=== PATIENT | male | born 1955 | race Caucasian/White ===

== ENCOUNTER 2018-01-13 12:15 | Emergency (ER) | payer BC ==
[2018-01-13] MEDS ORDERED: ASPIRIN 81 MG CHEWABLE TABLET ONE (12:37)
[2018-01-13] MEDS ORDERED: FENTANYL CITR 100 MCG/2 ML ONE (12:38)
--- NOTE | 2018-01-13 12:51 | RAD REPORT ---
EXAM DESCRIPTION: RAD - Chest Single View - 01/13/2018 12:44 pm CLINICAL HISTORY: Chest pain, history of NH COMPARISON: January 2017 TECHNIQUE: AP portable chest image was obtained 1233 hours . FINDINGS: Lung volumes are very low. No peripheral mass or consolidation. No acute failure, volume o verload or pulmonary edema. Heart and vasculature are normal. No measurable pleural effusion and no p neumothorax. No gross bony abnormality seen. No acute aortic findings suspected. IMPRESSION: Limited shallow inspiration portable exam shows no acute cardiopulmonary finding. No worrisome change from January 2017
[2018-01-13 13:12] LABS: Absolute Lymphocytes (CBC) 1.3 K/uL (0.7-4.9); Absolute Monocytes 0.6 K/uL (0.1-1.3); Absolute Neutrophil 4.3 K/uL (1.8-8.0); Basophils % 0.6 % (0-1.3); Eosinophils % 2.5 % (0-4.4); Hematocrit 42.8 % (39.6-49.0); Lymphocytes % 20.2 % (15.3-44.8); MCH 30.4 pg (27.0-35.0); MCV 90.2 fL (80-100); MPV 6.8 fL (7.6-11.3); Monocytes % 8.8 % (3.3-12.3); RBC Red Blood Cell Count 4.75 M/uL (4.33-5.43)
[2018-01-13 13:23] LABS: Potassium 3.6 mEq/L (3.6-5.0)
[2018-01-13 13:30] LABS: Albumin 3.8 g/dL (3.2-5.5); Bilirubin Direct 0.1 mg/dL (0-0.2); Bilirubin Total 0.6 mg/dL (0.3-1.2); Magnesium 1.9 mg/dL (1.8-2.5); Protein, Total 7.2 g/dL (6.0-8.3)
[2018-01-13] MEDS ORDERED: INSULIN -REGULAR HUMAN 50 UNIT/0.5 ML ML ONE (14:22)
[2018-01-13] MEDS ORDERED: HYDROCODONE/CHLORPHEN 5 ML/OSYR ONE (14:41)
[2018-01-13] MEDS ORDERED: ALBUTEROL 2.5 MG/3 ML NEB SOL ONE (14:41)
--- NOTE | 2018-01-13 18:14 | EDPHYS ---
Physician Documentation [facility] Name: Kumar Forman Age: 62 yrs Sex: Male : 1955 Arrival Date: 01/13/2018 Time: 12:22 Bed 5 Private MD: ED Physician Ramirez Fuentes HPI: 01/13 12:35 This 62 yrs old Male presents to ER via EMS with complaints of Chest Pain > jr8 30 y/o. 12:35 The patient or guardian reports chest pain that is located primarily in the substernal jr8 area. Onset: acutely, today. The pain does not radiate. Associated signs and symptoms: Pertinent positives: general weakness and fatigue. The chest pain is described as a heaviness, a pressure. Duration: The patient or guardian reports a single episode, that is still ongoing, that lasted 2 hour(s). Modifying factors: The symptoms are alleviated by nothing. the symptoms are aggravated by nothing. Severity of pain: At its worst the pain was moderate in the emergency department the pain is unchanged. The patient has experienced similar episodes in the past, a few times. The patient has not recently seen a physician. History of CAD with 2 WA's in past and 4 stents. Last was WA and stent was in 2004. Last Stress test was this past March of 2017. Nothing acute at that time. Today sudden onset. Noticed he has been more thirsty and urinating a lot as well. 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 Historical: - Allergies: 12:26 Iodine; jl7 12:26 PENICILLINS; jl7 - PMHx: 12:26 BPH; GERD; Myocardial infarction; jl7 - Immunization history:: Adult Immunizations up to date. - Social history:: Smoking status: Patient/guardian denies using tobacco. - Ebola Screening: : No symptoms or risks identified at this time. ROS: 12:35 Eyes: Negative for injury, pain, redness, and discharge, ENT: Negative for injury, jr8 pain, and discharge, Neck: Negative for injury, pain, and swelling, Respiratory: Negative for shortness of breath, cough, wheezing, and pleuritic chest pain, Abdomen/GI: Negative for abdominal pain, nausea, vomiting, diarrhea, and constipation, Back: Negative for injury and pain, MS/Extremity: Negative for injury and deformity, Skin: Negative for injury, rash, and discoloration, Neuro: Negative for headache, weakness, numbness, tingling, and seizure. 12:35 Cardiovascular: Positive for chest pain, edema, Negative for orthopnea, palpitations, paroxysmal nocturnal dyspnea. 12:35 Endocrine: Positive for polydipsia, polyuria. Exam: 12:35 Eyes: Pupils equal round and reactive to light, extra-ocular motions intact. Lids and jr8 lashes normal. Conjunctiva and sclera are non-icteric and not injected. Cornea within normal limits. Periorbital areas with no swelling, redness, or edema. ENT: Nares patent. No nasal discharge, no septal abnormalities noted. Tympanic membranes are normal and external auditory canals are clear. Oropharynx with no redness, swelling, or masses, exudates, or evidence of obstruction, uvula midline. Mucous membranes moist. Neck: Trachea midline, no thyromegaly or masses palpated, and no cervical lymphadenopathy. Supple, full range of motion without nuchal rigidity, or vertebral point tenderness. No Meningismus. Cardiovascular: Regular rate and rhythm with a normal S1 and S2. No gallops, murmurs, or rubs. Normal PMI, no JVD. No pulse deficits. 2+ edema to lower extremities Respiratory: Lungs have equal breath sounds bilaterally, clear to auscultation and percussion. No rales, rhonchi or wheezes noted. No increased work of breathing, no retractions or nasal flaring. Abdomen/GI: Soft, non-tender, with normal bowel sounds. No distension or tympany. No guarding or rebound. No evidence of tenderness throughout. Obese Back: No spinal tenderness. No costovertebral tenderness. Full range of motion. Skin: Warm, dry with normal turgor. Normal color with no rashes, no lesions, and no evidence of cellulitis. MS/ Extremity: Pulses equal, no cyanosis. Neurovascular intact. Full, normal range of motion. Neuro: Awake and alert, GCS 15, oriented to person, place, time, and situation. Cranial nerves II-XII grossly intact. Motor strength 5/5 in all extremities. Sensory grossly intact. Cerebellar exam normal. Normal gait. 12:35 ECG was reviewed by the Attending Physician. Vital Signs: 12:26 BP 165 / 94; Pulse 89; Resp 18 S; Temp 98(O); Pulse Ox 97% on R/A; Weight 135.17 kg jl7 (R); Height 5 ft. 7 in. (170.18 cm) (R); Pain 4/10; 13:30 BP 138 / 72; Pulse 85; Resp 18; Pulse Ox 97% ; jl7 14:00 BP 145 / 89; Pulse 83; Resp 18 S; Pulse Ox 98% on R/A; jl7 14:53 BP 130 / 71; Pulse 78; Resp 18; Pulse Ox 100% on Nebulizer Mask; jl7 17:30 BP 135 / 78; Pulse 76; Resp 18; Pulse Ox 99% ; jl7 12:26 Body Mass Index 46.67 (135.17 kg, 170.18 cm) jl7 MDM: 12:22 Patient medically screened. jr8 18:12 The patient was given aspirin in the Emergency Department. Data reviewed: vital signs, [facility] nurses notes, lab test result(s), EKG, radiologic studies, plain films, and as a result, I will discharge patient. Data interpreted: Pulse oximetry: on room air is 100 %. Interpretation: normal. 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 Response to treatment: the patient's symptoms have markedly improved after treatment. ED course: Both troponins are negative. Patient feeling better. Wants to go home. Will call Dr. Harris in the AM as he is established patient with him. Patient hemodynamically stable. Will start patient on new diabetic medication . 01/13 12:23 Order name: Basic Metabolic Panel; Complete Time: 13:30 01/13 12:23 Order name: BNP; Complete Time: 13:35 01/13 12:23 Order name: CBC with Diff; Complete Time: 13:22 01/13 12:23 Order name: LFT's; Complete Time: 13:30 01/13 12:23 Order name: Magnesium; Complete Time: 13:30 01/13 12:23 Order name: PT-INR; Complete Time: 13:22 01/13 12:23 Order name: Troponin (emerg Dept Use Only); Complete Time: 13:30 jr8 01/13 12:23 Order name: XRAY Chest (1 view); Complete Time: 12:58 jr8 01/13 14:41 Order name: Glucose, Ancillary Testing; Complete Time: 14:43 EDMS 06 15:37 Order name: Troponin (emerg Dept Use Only); Complete Time: 16:50 jr8 01/13 16:20 Order name: Glucose, Ancillary Testing; Complete Time: 16:25 EDMS 01/13 12:23 Order name: EKG; Complete Time: 12:23 jr8 01/13 12:23 Order name: Cardiac monitoring; Complete Time: 12:46 jr8 01/13 12:23 Order name: EKG - Nurse/Tech; Complete Time: 12:46 jr8 01/13 12:23 Order name: IV Saline Lock; Complete Time: 12:46 jr8 01/13 12:23 Order name: Labs collected and sent; Complete Time: 12:46 jr8 01/13 12:23 Order name: O2 Per Protocol; Complete Time: 12:46 jr8 01/13 12:23 Order name: O2 Sat Monitoring; Complete Time: 12:52 jr8 01/13 12:23 Order name: Glucose Level; Complete Time: 12:51 jr8 EC:35 Rate is 95 beats/min. Rhythm is regular, Normal Sinus Rhythm. QRS [place] is Normal. FL jr8 interval is normal at 172 msec. QRS interval is normal at 92 msec. QT interval is prolonged at 469 msec. Q waves are Present. Q waves are Old. T waves are Flattened in lead III. No ST changes noted. Clinical impression: NSR w/ Non-specific ST/T Changes. Interpreted by me. Reviewed by me. Administered Medications: 12:37 Drug: Aspirin Chewable Tablet 324 mg Route: PO; jl7 14:50 Follow up: Response: No adverse reaction jl7 12:38 Drug: fentaNYL (PF) 25 mcg Route: IVP; Site: right antecubital; jl7 13:15 Follow up: Response: No adverse reaction; Pain is decreased jl7 14:25 Drug: Insulin Regular Human 10 units {Co-Signature: jl7 (Doris Hernandez RN).} Route: hb Sub-Q; Site: right upper arm; 16:19 Follow up: Response: Blood sugar is lowered jl7 14:49 Drug: Albuterol 2.5 mg Route: Inhalation; 7 16:19 Follow up: Response: No adverse reaction 7 14:50 Drug: Tussionex Pennkinetic ER 5 ml Route: PO; jl7 16:19 Follow up: Response: No adverse reaction jl7 Point of Care Testing: Blood Glucose: 12:50 Blood Glucose: 275 mg/dL; dh3 Ranges: Critical Glucose Levels:Adult <50 mg/dl or >400 mg/dl <40 mg/dl or >180 mg/dl Disposition: 19:06 Co-signature as Attending Physician, Ramirez Fuentes MD. rn Disposition: 01/13/18 18:13 Discharged to Home. Impression: Diabetes mellitus due to underlying condition with hyperglycemia, Chest pain, unspecified. - Condition is Stable. - Discharge Instructions: Nonspecific Chest Pain, Type 2 Diabetes Mellitus, Adult, Blood Glucose Monitoring, Adult, Aspirin and Your Heart, Chest Pain Observation. - Prescriptions for Metformin 500 mg Oral Tablet - take 1 tablet by ORAL route 2 times per day with meals; 30 tablet. - Medication Reconciliation Form, Thank You Letter, Antibiotic Education, Prescription Opioid Use form. - Follow up: Donnell Harris MD; When: Tomorrow; Reason: Recheck today's complaints, Continuance of care, Re-evaluation by your physician. - Problem is new. - Symptoms have improved. Signatures: Dispatcher [employer] EDMS Ramirez Fuentes MD MD rn Roszak, Josh, NILAY PA jr8 Yasmine Xiao RN RN hb Leal, Jahala, RN RN jl7 Doris Hernandez RN jl7 Corrections: (The following items were deleted from the chart) 18:30 18:13 01/13/2018 18:13 Discharged to Home. Impression: Diabetes mellitus due to jl7 underlying condition with hyperglycemia; Chest pain, unspecified. Condition is Stable. Forms are Medication Reconciliation Form, Thank You Letter, Antibiotic Education, Prescription Opioid Use. Follow up: Donnell Harris; When: Tomorrow; Reason: Recheck today's complaints, Continuance of care, Re-evaluation by your physician. Problem is new. Symptoms have improved. jrJairon
--- NOTE | 2018-01-13 18:14 | ER ---
Nurse's Notes [facility] Name: Kumar Forman Age: 62 yrs Sex: Male : 1955 Arrival Date: 01/13/2018 Time: 12:22 Bed 5 Private MD: Diagnosis: Diabetes mellitus due to underlying condition with hyperglycemia;Chest pain, unspecified Presentation: 01/13 12:22 Presenting complaint: EMS states: Substernal chest pain started at about 1000. jl7 Transition of care: patient was not received from another setting of care. Onset of symptoms was January 13, 2018 at 10:00. Risk Assessment: Do you want to hurt yourself or someone else? Patient reports no desire to harm self or others. Initial Sepsis Screen: Does the patient meet any 2 criteria? No. Patient's initial sepsis screen is negative. Does the patient have a suspected source of infection? No. Patient's initial sepsis screen is negative. Care prior to arrival: None. 12:22 Method Of Arrival: EMS: [facility] jl7 12:22 Acuity: STEF 2 jl7 Triage Assessment: 12:26 General: Appears in no apparent distress. uncomfortable, Behavior is calm, cooperative, jl7 appropriate for age. Pain: Complains of pain in mid-sternal area Pain does not radiate. Pain currently is 4 out of 10 on a pain scale. Quality of pain is described as pressure, Pain began 2 hours ago. Is continuous. EENT: No signs and/or symptoms were reported regarding the EENT system. Neuro: Level of Consciousness is awake, alert, obeys commands, Oriented to person, place, time, situation. Cardiovascular: Heart tones S1 S2 present Patient's skin is warm and dry. Respiratory: Airway is patent Respiratory effort is even, unlabored, Respiratory pattern is regular, symmetrical. GI: No signs and/or symptoms were reported involving the gastrointestinal system. Patient currently denies diarrhea, nausea, vomiting. : No signs and/or symptoms were reported regarding the genitourinary system. Derm: Skin is pink, warm \T\ dry. Musculoskeletal: No signs and/or symptoms reported regarding the musculoskeletal system. Historical: - Allergies: 12:26 Iodine; jl7 12:26 PENICILLINS; jl7 - PMHx: 12:26 BPH; GERD; Myocardial infarction; jl7 - Immunization history:: Adult Immunizations up to date. - Social history:: Smoking status: Patient/guardian denies using tobacco. - Ebola Screening: : No symptoms or risks identified at this time. Screenin:30 Abuse screen: Denies threats or abuse. Denies injuries from another. Nutritional jl7 screening: No deficits noted. Tuberculosis screening: No symptoms or risk factors identified. Fall Risk IV access (20 points). Total Rodriguez Fall Scale indicates No Risk (0-24 pts). Assessment: 12:30 General: See triage assessment. jl7 13:30 Reassessment: Patient appears in no apparent distress at this time. Patient and/or jl7 family updated on plan of care and expected duration. Pain level reassessed. Patient is alert, oriented x 3, equal unlabored respirations, skin warm/dry/pink. 14:30 Reassessment: Patient and/or family updated on plan of care and expected duration. Pain jl7 level reassessed. Patient is alert, oriented x 3, equal unlabored respirations, skin warm/dry/pink. Pt c/o of non-productive cough, see [facility] for orders. 15:30 Reassessment: Patient appears in no apparent distress at this time. Patient and/or hb family updated on plan of care and expected duration. Pain level reassessed. Patient is alert, oriented x 3, equal unlabored respirations, skin warm/dry/pink. 16:30 Reassessment: Patient appears in no apparent distress at this time. No changes from hb previously documented assessment. Patient and/or family updated on plan of care and expected duration. Pain level reassessed. Patient is alert, oriented x 3, equal unlabored respirations, skin warm/dry/pink. 17:30 Reassessment: No changes from previously documented assessment. Patient and/or family jl7 updated on plan of care and expected duration. Pain level reassessed. Patient is alert, oriented x 3, equal unlabored respirations, skin warm/dry/pink. Patient states feeling better. Vital Signs: 12:26 BP 165 / 94; Pulse 89; Resp 18 S; Temp 98(O); Pulse Ox 97% on R/A; Weight 135.17 kg jl7 (R); Height 5 ft. 7 in. (170.18 cm) (R); Pain 4/10; 13:30 BP 138 / 72; Pulse 85; Resp 18; Pulse Ox 97% ; jl7 14:00 BP 145 / 89; Pulse 83; Resp 18 S; Pulse Ox 98% on R/A; jl7 14:53 BP 130 / 71; Pulse 78; Resp 18; Pulse Ox 100% on Nebulizer Mask; jl7 17:30 BP 135 / 78; Pulse 76; Resp 18; Pulse Ox 99% ; jl7 12:26 Body Mass Index 46.67 (135.17 kg, 170.18 cm) jl7 ED Course: 12:22 Patient arrived in ED. jl7 12:22 Barry Olvera PA is PHCP. jr8 12:22 Ramirez Fuentes MD is Attending Physician. jr8 12:24 Triage completed. jl7 12:26 Arm band placed on right wrist. jl7 12:30 Patient has correct armband on for positive identification. Placed in gown. Bed in low jl7 position. Call light in reach. Side rails up X 1. patient monitor on. Pulse ox on. NIBP on. 12:30 Patient maintains SpO2 saturation greater than 95% on room air. jl7 12:31 Doris Hernandez, RN is Primary Nurse. jl7 12:42 XRAY Chest (1 view) In Process Unspecified. EDMS 12:45 Initial lab(s) drawn, by me, sent to lab. Inserted saline lock: 20 gauge in right dh3 antecubital area, using aseptic technique. Blood collected. 18:13 Donnell Harris MD is Referral Physician. jr8 18:29 No provider procedures requiring assistance completed. IV discontinued, intact, jl7 bleeding controlled, No redness/swelling at site. Pressure dressing applied. Administered Medications: 12:37 Drug: Aspirin Chewable Tablet 324 mg Route: PO; jl7 14:50 Follow up: Response: No adverse reaction jl7 12:38 Drug: fentaNYL (PF) 25 mcg Route: IVP; Site: right antecubital; jl7 13:15 Follow up: Response: No adverse reaction; Pain is decreased jl7 14:25 Drug: Insulin Regular Human 10 units {Co-Signature: jl7 (Doris Hernandez RN).} Route: hb Sub-Q; Site: right upper arm; 16:19 Follow up: Response: Blood sugar is lowered jl7 14:49 Drug: Albuterol 2.5 mg Route: Inhalation; jl7 16:19 Follow up: Response: No adverse reaction 7 14:50 Drug: Tussionex Pennkinetic ER 5 ml Route: PO; 7 16:19 Follow up: Response: No adverse reaction 7 Point of Care Testing: Blood Glucose: 12:50 Blood Glucose: 275 mg/dL; [facility] Ranges: Outcome: 18:13 Discharge ordered by . alisha 18:29 Discharged to home ambulatory, with family. 7 18:29 Condition: stable 18:29 Discharge instructions given to patient, family, Instructed on discharge instructions, follow up and referral plans. medication usage, Demonstrated understanding of instructions, follow-up care, medications, Prescriptions given X 1. 18:30 Patient left the ED. jl7 Signatures: Dispatcher [employer] EDMS Barry Olvera PA PA jr8 Yasmine Xiao, RN LYRIC oDris Hernandez RN RN jl7 Paola Harmon [facility] Doris [email or web address]
[2018-01-13 18:33] VITALS: TEMP 98
[2018-01-13 18:38] VITALS: BP 135/78; O2SAT 99
--- NOTE | 2018-01-13 22:41 | EKG ---
Test Date: 2018-01-13 Test Time: 12:30:48 Senior Developer: DORIS MEASUREMENT RESULTS: Intervals: Rate: 95 ME: 172 QRSD: 92 QT: 374 QTc: 469 [place]: P: 47 ME: 172 QRS: 5 T: 32 INTERPRETIVE STATEMENTS: Normal sinus rhythm Inferior infarct, age undetermined Anteroseptal infarct, age undetermined Abnormal ECG Compared to ECG 01/26/2017 10:44:27 Myocardial infarct finding now present Electronically Signed On 01-13-18 22:40:40 CDT by Yon Edwards
== END 2018-01-13 18:30 | disposition home or self-care (01) ==
LOC: ER 12:15
DX: E11.65 Type 2 diabetes mellitus with hyperglycemia (principal); R07.9 Chest pain, unspecified; I25.2 Old myocardial infarction; Z88.0 Allergy status to penicillin; Z88.8 Allergy status to other drugs, medicaments and biological substances
CPT/HCPCS: 36415; 71045; 80048; 80076; 82962; 83735; 83880; 84484; 85025; 85610; 93005; 96372; 96374; 99285; J3010

== ENCOUNTER 2019-04-22 15:32 | Emergency (ER) | payer BC ==
--- OUTSIDE RECORDS SUMMARY | 2019-04-22 15:34 | XMS REPORT | Clinical Summary ---
:1955 Author Organization [facility] Address [address] [place] [address] Care Team Providers Name Role Phone Toribio Dowling DO Primary Care Provider Allergies Active Allergy Reactions Severity Noted Date Comments Iodine Anaphylaxis, Hives, Rash High 01/21/2016 IV Iodine Penicillins Anaphylaxis High 01/21/2016 Phenazopyridine Anaphylaxis High 09/07/2017 Medications Medication Sig Dispensed Refills Start Date End Date Status zolpidem CR (AMBIEN TAKE 1 TABLET BY 5 07/02/2018 Active CR) 12.5 MG CR tablet MOUTH AT BEDTIME NEEDED FOR INSOMNIA metFORMIN (GLUCOPHAGE) 0 07/15/2018 Active 1,000 mg tablet gabapentin (NEURONTIN) Take 600 mg by 1 07/02/2018 Active 600 mg tablet mouth 2 (two) times a day. glimepiride (AMARYL) 4 0 07/18/2018 Active MG tablet finasteride (PROSCAR) Take 5 mg by mouth 3 06/23/2018 Active 5 mg tablet daily. clopidogrel (PLAVIX) Take 75 mg by 5 06/24/2018 Active 75 mg tablet mouth daily. metoprolol succinate Take 100 mg by 5 07/08/2018 Active XL (TOPROL-XL) 100 mg mouth daily. 24 hr tablet losartan-hydrochloroth Take 1 tablet by 1 07/02/2018 Active iazide (HYZAAR) mouth daily. 50-12.5 mg per tablet Active Problems Not on file Social History Tobacco Use Types Packs/Day Years Used Date Never Assessed Sex Assigned at Date Recorded Not on file Job Start Date Occupation Industry Not on file Not on file Not on file Travel History Travel Start Travel End No recent travel history available. 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
--- OUTSIDE RECORDS SUMMARY | 2019-04-22 15:35 | XMS REPORT ---
:1955 [facility] [address] [place] [address] Care Team Providers Name Role Phone Unavailable Unavailable Unavailable Payers Payer Name Policy Type Policy Number Effective Date Expiration Date Problems This patient has no known problems. Allergies, Adverse Reactions, Alerts Allergy Name Allergy Status Severity Reaction(s) Onset Inactive Treating Comments Type Date Date [place] [address] Contrast- Oral 6-10 and IV Dye 00:00: 00 Penicillins DA Active SV 2019-0 6-10 00:00: 00 phenazopyridine DA Active SV 2019-0 6-10 00:00: 00 [place] [address] Contrast- Oral 1-15 and IV Dye 00:00: 00 Penicillins DA Active SV 2018-0 8-06 00:00: 00 iodine DA Active SV 2018-0 8-06 00:00: 00 phenazopyridine DA Active SV 2018-0 8-06 00:00: 00 Medications This patient has no known medications. Results Test Description Test Time Test Comments Text Results Atomic Results Result Comments - XR KNEE 1 OR 2 V RT 2019-01-31 12:44:00 Patient Name: AGUEDA COOK Unit No: [id number] EXAMS: CPT CODE: [id number] XR KNEE 1 OR 2 V RT [address]117 RIGHT KNEE 2 VIEWS PORTABLE COMMENT: The patient is status post joint replacement which is articulating normally. at 1244 Reported and signed by: Igor Vallejo MD CC: Beverly Escobar MD Technologist: DAVION PEREZ (RT.R) Transcribed D/ (6720) Elvia [facility] NAME: AGUEDA COOK [address] [facility] PHYS: PAT Beverly Escobar : 1955 AGE: 63 SEX: M [id number] LOC: Y.520 A PHONE #: [phone] EXAM DATE: 01/28/2019 STATUS: DIS IN FAX #: [phone] RAD #: D/C DT 01/29/2019 PAGE 1 Signed Report Patient Name: AGUEDA COOK Unit No: [id number] EXAMS: CPT CODE: [id number] XR KNEE 1 OR 2 V RT 68488 <Continued> Orig Print D/T: S: 01/31/2019 (0535) [facility] NAME: AGUEDA COOK [address] [facility] PHYS: YANN. Beverly Escobar : 1955 AGE: 63 SEX: M [id number] LOC: Y.520 A PHONE #: [phone] EXAM DATE: 01/28/2019 STATUS: DIS IN FAX #: [phone] RAD #: D/C DT 01/29/2019 PAGE 2 Signed Report BASIC METABOLIC PANEL 2019-01-29 07:38:00 Test Item Value Reference Range Comments SODIUM (test code=NA) 140 mmol/L 136-145 POTASSIUM (test code=K) 3.9 mmol/L 3.5-5.1 CHLORIDE (test code=CL) 103.0 mmol/L 98-107 CARBON DIOXIDE (test code=CO2) 27.7 mmol/L 21-32 GLUCOSE (test code=GLU) 154 mg/dL 70-110 BLOOD UREA NITROGEN (test 23 mg/dL 7-18 code=BUN) GLOMERULAR FILTRATION RATE (test 53.4 >60 Unit of measure: mL/min/1.73 code=GFR) [id number] Range:Healthy Adults >90 mL/min/1.73 m2 For Chronic Kidney Disease: Stage II Mild Decrease in GFR 60-90 Stage III Moderate Decrease in GFR 30-59 Stage IV Severe Decrease in GFR 15-29 Stage V Kidney Failure <15 CREATININE (test code=CREAT) 1.35 mg/dL 0.55-1.30 CALCIUM (test code=CA) 7.8 mg/dL 8.2-10.1 HGB [id number] 06:32:00 Test Item Value Reference Range Comments HEMOGLOBIN (test code=HGB) 12.2 g/dL 12-16 HEMATOCRIT (test code=HCT) 37.1 % 37-47 [id number] 05:24:00 Test Item Value Reference Range Comments GLUBED (test code=GLUBED) 149 mg/dL 60-125 [id number] 20:47:00 Test Item Value Reference Range Comments GLUBED (test code=GLUBED) 161 mg/dL 60-125 [id number] 12:02:00 Test Item Value Reference Range Comments GLUBED (test code=GLUBED) 140 mg/dL 60-125 GLYCOSYLATED HEMOGLOBIN (HA1C)2019-01-17 13:50:00 Test Item Value Reference Range Comments GLYCOSYLATED HEMOGLOBIN 6.2 % 4.8-5.9 Any condition that shortens (HA1C) (test code=GLYHGB) erythocyte survival or decreasesmean erythrocyte age (e.g., recovery from acute blood loss,hemolytic anemai) will falsely lower HGBA1c resultsregardless of the method used. HGBA1c results frompatients with HbSS, HbCC and HbSc must be interpreted withcaution given the pathological processes, including anemia,increased red cell turnover, transfusion requirements, thatadversely impact HGBA1c as a marker of long-term glycemiccontrol. Alternative forms of testing such as fructosamineshould be considered for these patients.Any condition that shortens erythocyte survival or decreasesmean erythrocyte age (e.g., recovery from acute blood loss,hemolytic anemia) will falsely lower HGBA1c resultsregardless of the method used. HGBA1c results from patientswith HbSS, HbCC, and HbSc must be interpreted with cautiongiven the pathological processes, including anemia,increased red cell turnover, transfusion requirements, thatadversely impact HGBA1c as a marker of long-term glycemiccontrol. Alternative forms of testing such as fructosamineshould be considered for these patients.DONE AT: [facility] [address], [place] [address] GLYCOSYLATED HEMOGLOBIN (HA1C)2019-01-17 13:49:00 Test Item Value Reference Range Comments GLYCOSYLATED HEMOGLOBIN 6.2 % 4.8-5.9 Any condition that shortens (HA1C) (test code=GLYHGB) erythocyte survival or decreasesmean erythrocyte age (e.g., recovery from acute blood loss,hemolytic anemia) will falsely lower HGBA1c resultsregardless of the method used. HGBA1c results from patientswith HbSS, HbCC, and HbSc must be interpreted with cautiongiven the pathological processes, including anemia,increased red cell turnover, transfusion requirements, thatadversely impact HGBA1c as a marker of long-term glycemiccontrol. Alternative forms of testing such as fructosamineshould be considered for these patients. COMPREHENSIVE METABOLIC [id number] 12:39:00 Test Item Value Reference Range Comments SODIUM (test code=NA) 138 mmol/L 136-145 POTASSIUM (test code=K) 4.1 mmol/L 3.5-5.1 CHLORIDE (test code=CL) 101.0 mmol/L 98-107 CARBON DIOXIDE (test code=CO2) 24.9 mmol/L 21-32 GLUCOSE (test code=GLU) 127 mg/dL 70-110 BLOOD UREA NITROGEN (test 18 mg/dL 7-18 code=BUN) GLOMERULAR FILTRATION RATE 58.3 >60 Unit of measure: (test code=GFR) mL/min/1.73 [id number] Range:Healthy Adults >90 mL/min/1.73 m2 For Chronic Kidney Disease: Stage II Mild Decrease in GFR 60-90 Stage III Moderate Decrease in GFR 30-59 Stage IV Severe Decrease in GFR 15-29 Stage V Kidney Failure <15 CREATININE (test code=CREAT) 1.25 mg/dL 0.55-1.30 TOTAL PROTEIN (test code=PROT) 6.7 g/dL 6.4-8.2 ALBUMIN (test code=ALB) 3.4 g/dL 3.4-5.0 GLOBULIN (test code=GLOB) 3.3 g/dL 2.2-4.2 ALBUMIN/GLOBULIN RATIO (test 1.0 0.7-2.0 code=A/G) CALCIUM (test code=CA) 8.9 mg/dL 8.2-10.1 BILIRUBIN TOTAL (test 0.27 mg/dL 0.2-1.00 code=BILT) SGOT/AST (test code=AST) 32.0 U/L 15-37 SGPT/ALT (test code=ALT) 52.0 U/L 12-78 Please note new normal range. ALKALINE PHOSPHATASE TOTAL 69 U/L 46-116 (test code=ALKP) PROTHROMBIN [id number] 12:33:00 Test Item Value Reference Range Comments PROTHROMBIN TIME PATIENT 11.4 secs 10.1-12.5 (test code=PTP) INTERNATIONAL NORMAL RATIO 1.01 <2.0 RECOMMENDED THERAPEUTIC RANGE (test code=INR) FOR ORAL ANTICOAGULANTTREATMENT: CONDITION INRProphylaxis of venous thrombosis in 2.0 - 3.0 high-risk medical or surgical patientsTreatment of venous thrombosis 2.0 - 3.0Prevention of embolism 2.0 - 3.0Prevention of recurrent embolism, or 3.0 - 4.5 patients with mechanical prosthetic intravascular valves IS PATIENT ON ANTICOAGULANTS ? YLIST ANTICOAGULANT/ANTI PLT MEDICATION : Plavix (Anti-PLT)Has Lab been notified if Patient is on Heparin Drip? NOIf Yes, order CBC, OCCULT BLOOD, PT every other day NTHROMBOPLASTIN TIME [id number] 12: 33:00 Test Item Value Reference Range Comments PTT ACTIVATED (test code=APTT) 28.4 secs 24.9-37.0 IS PATIENT ON ANTICOAGULANTS ? YLIST ANTICOAGULANT/ANTI PLT MEDICATION : Plavix (Anti-PLT)Has Lab been notified if Patient is on Heparin Drip? NOIf Yes, order CBC, OCCULT BLOOD, PT every other day NCBC W/AUTO [id number] 12:29:00 Test Item Value Reference Range Comments WHITE BLOOD CELL (test code=WBC) 8.9 K/mm3 5.7-10.5 RED BLOOD CELL (test code=RBC) 5.04 M/mm3 4.2-5.4 HEMOGLOBIN (test code=HGB) 14.5 g/dL 12-16 HEMATOCRIT (test code=HCT) 44.0 % 37-47 MEAN CELL VOLUME (test code=MCV) 87 fL 80-98 MEAN CELL HGB (test code=MCH) 28.8 pg 27-34 MEAN CELL HGB CONCENTRATION (test code=MCHC) 33.0 g/dL 30.8-34.1 RED CELL DISTRIBUTION WIDTH (test code=RDW) 13.8 % 11-16 PLT (test code=PLT) 159 K/mm3 130-400 MEAN PLATELET VOLUME (test code=MPV) 8.5 fL 8.9-12.1 NEUTROPHIL % (test code=NT%) 69.2 % 45-70 LYMPHOCYTE % (test code=LY%) 18.2 % 20-40 MONOCYTE % (test code=MO%) 9.6 % 3-10 EOSINOPHIL % (test code=EO%) 2.1 % 1-5 BASOPHIL % (test code=BA%) 0.6 % 0.0-1.1 NEUTROPHIL # (test code=NT#) 6.14 K/mm3 2.00-7.50 LYMPHOCYTE # (test code=LY#) 1.62 K/mm3 1.50-4.00 MONOCYTE # (test code=MO#) 0.85 K/mm3 0.2-0.8 EOSINOPHIL # (test code=EO#) 0.19 K/mm3 0.04-0.4 BASOPHIL # (test code=BA#) 0.05 K/mm3 0.02-0.10 MANUAL DIFF REQUIRED (test code=MDIFF) NO MANUAL DIFF NUCLEATED RED BLOOD CELL (test code=NRBC) 0 % 0-0 URINALYSIS [id number] 12:27:00 Test Item Value Reference Range Comments UA COLOR (test code=COLU) YELLOW YELLOW UA APPEARANCE (test code=APPU) CLEAR CLEAR UA GLUCOSE DIPSTICK (test code=DGLUU) NEGATIVE NEGATIVE UA BILIRUBIN DIPSTICK (test code=BILU) NEGATIVE NEGATIVE UA KETONE DIPSTICK (test code=KETU) NEGATIVE mg/dL NEGATIVE UA SPECIFIC GRAVITY (test code=SGU) 1.025 1.003-1.035 UA BLOOD DIPSTICK (test code=ENRIKE) NEGATIVE NEGATIVE UA PH DIPSTICK (test code=SUKHJINDER) 6.0 >6.5 UA PROTEIN DIPSTICK (test code=PROU) NEGATIVE mg/dL NEG UA UROBILINIOGEN DIPSTICK (test code=URO) 0.2 mg/dL NORM UA NITRITE DIPSTICK (test code=ERICA) NEGATIVE NEG UA LEUKOCYTE ESTERASE DIPSTICK (test NEGATIVE NEGATIVE code=LEUU) UA WBC (test code=WBCU) <5 /HPF 0-2 UA RBC (test code=RBCU) 0-2 /HPF 0-2 UA EPITHELIAL CELLS (test code=EPIU) FEW /HPF 0-2 UA BACTERIA (test code=BACU) FEW /HPF NONE - XR FLUORO [id number] 10:43:00 Patient Name: AGUEDA COOK Unit No: [id number] EXAMS: CPT CODE: [id number] XR FLUORO NDL 41953 FLUOROSCOPICALLY GUIDED right prosthetic knee joint ASPIRATION COMMENT: After informed consent was obtained a 22-gauge needle is inserted into right prosthetic knee joint under fluoroscopic control using sterile technique. 10 mL of fluid was aspirated. This is sent to the lab for analysis. The patient tolerated the procedure well. 0.5 minutes of fluoroscopy time was used on this exam. at 1043 Reported and signed by: Pb Clemente MD CC: Ricardo Leonard Technologist: RT. Mendel(R) Transcribed D/ (5701) SimonGVG [facility] NAME: AGUEDA COOK[address] [facility] PHYS: Ricardo Patel : 1955 AGE: 62 SEX: M [id number] LOC: UN PHONE #: [phone] EXAM DATE: 01/08/2018 STATUS: DEP [place] #: [phone] RAD #: D/C DT PAGE 1 Signed Report Patient Name: AGUEDA COOK Unit No: [id number] EXAMS: CPT CODE: [id number] XR FLUORO NDL 30782 < Continued> Orig Print D/T: S:01/11/2018 (8873) [facility] NAME: AGUEDA COOK [address] [facility] PHYS : Ricardo Patel : AGE: 62 SEX: M [id number] LOC: UNK PHONE #: [phone] EXAM DATE: STATUS: SALVADOR BAEZA FAX #: [phone] RAD #: D/C DT PAGE 2 Signed Report
[2019-04-22 16:39] LABS: Protime INR 1.05
[2019-04-22 16:40] LABS: Absolute Lymphocytes (CBC) 1.7 K/uL (0.7-4.9); Basophils % 0.6 % (0-1.3); Hematocrit 44.8 % (39.6-49.0); Lymphocytes % 19.6 % (15.3-44.8); MPV 6.6 fL (7.6-11.3); RBC Red Blood Cell Count 5.14 M/uL (4.33-5.43)
--- NOTE | 2019-04-22 16:51 | RAD REPORT ---
EXAM DESCRIPTION: CT - Head Brain Wo Cont - 04/22/2019 4:30 pm CLINICAL HISTORY: Dizziness;Headache Headache, drowsiness COMPARISON: SINUS W O CONTRAST dated 04/16/2012 TECHNIQUE: All CT scans are performed using dose optimization technique as appropriate and may inclu de automated exposure control or mA/KV adjustment according to patient size. FINDINGS: No intracranial hemorrhage, hydrocephalus or extra-axial fluid collection.No areas of brai n edema or evidence of midline shift. The paranasal sinuses and mastoids are clear. The calvarium is intact. IMPRESSION: No acute intracranial abnormality.
--- NOTE | 2019-04-22 16:52 | RAD REPORT ---
EXAM DESCRIPTION: RAD - Chest Single View - 04/22/2019 4:33 pm CLINICAL HISTORY: CHEST PAIN Chest pain. COMPARISON: Chest Single View dated 01/13/2018; Chest Single View dated 01/26/2017; Chest Single View d ated 01/18/2017; CHEST SINGLE VIEW dated 12/06/2013 FINDINGS: Portable technique limits examination quality. The lungs are grossly clear. The heart is normal in size. No displaced fractures. IMPRESSION: No acute intrathoracic process suspected.
[2019-04-22] MEDS ORDERED: NA CHLORIDE 0.9% 1,000 ML ONE (16:58)
[2019-04-22 16:59] LABS: ALT/SGPT 46 U/L (12-78); AST/SGOT 26 U/L (15-37); Albumin 3.5 g/dL (3.4-5.0); Alkaline Phosphatase 69 U/L (45-117); BUN Blood Urea Nitrogen 17 mg/dL (7-18); Bicarbonate 24 mmol/L (21-32); Bilirubin Direct 0.1 mg/dL (0-0.2); Bilirubin Total 0.4 mg/dL (0.2-1.0); Glucose Level 79 mg/dL (74-106); Magnesium 1.9 mg/dL (1.8-2.4); NT PRO-BNP 107 pg/mL (<125); Potassium 3.8 mmol/L (3.5-5.1); Protein, Total 7.8 g/dL (6.4-8.2); Sodium Level 143 mmol/L (136-145); Troponin (Emerg Dept Use Only) < 0.02 ng/mL (0.0-0.045)
[2019-04-22 17:00] LABS: Urine Blood NEGATIVE (NEG); Urine Glucose NEGATIVE (NEG); Urine Protein NEGATIVE (NEG); Urine pH 5.5 (5.0-7.0)
[2019-04-22] MEDS ORDERED: METOCLOPRAMIDE 10 MG/2mL INJ ONE (17:38)
[2019-04-22] MEDS ORDERED: KETOROLAC 30 MG/ML INJ ONE (17:38)
[2019-04-22] MEDS ORDERED: MECLIZINE HCL 12.5 MG TAB ONE (17:38)
[2019-04-22 17:54] LABS: Urine Bacteria <20 /HPF (NONE SEEN); Urine Culture Reflex Order NOT NEEDED; Urine RBC NONE SEEN /HPF (NONE SEEN)
--- NOTE | 2019-04-22 19:49 | ER ---
Nurse's Notes [facility] Name: Kumar Forman Age: 63 yrs Sex: Male : 1955 Arrival Date: 04/22/2019 Time: 15:34 Bed 26 Private MD: Diagnosis: Dizziness and giddiness;Headache;Chest pain, unspecified Presentation: 04/22 15:41 Presenting complaint: Nausea, diarrhea, dizziness, generalized weakness, chills, and hb tingling of left arm since yesterday. Transition of care: patient was not received from another setting of care. Onset of symptoms was April 21, 2019. Risk Assessment: Do you want to hurt yourself or someone else? Patient reports no desire to harm self or others. Care prior to arrival: None. 15:41 Method Of Arrival: Wheelchair hb 15:41 Acuity: STEF 3 hb Historical: - Allergies: 15:45 Iodine; hb 15:45 PENICILLINS; hb 15:45 AZO Standard; hb - Home Meds: 16:08 aspirin 81 mg Oral TbEC 1 tab once daily [Active]; losartan 50 mg oral tab [Active]; tr5 rabeprazole 20 mg oral TbEC [Active]; glimepiride 4 mg Oral tab [Active]; gabapentin oral 60mg oral [Active]; metformin 1,000 mg Oral tab [Active]; finasteride 5 mg oral tab [Active]; metoprolol tartrate 100 mg Oral tab 1 tab once daily [Active]; clopidogrel 75 mg oral tab [Active]; trazodone 50 mg Oral tab [Active]; - PMHx: 15:45 BPH; GERD; Myocardial infarction; hb 16:08 Ulcers; Diabetes - NIDDM; Cataracts; tr5 - PSHx: 16:08 stints x3 2004 x1 2005; Knee surgery; tr5 - Immunization history:: Adult Immunizations up to date. - Social history:: Smoking status: Patient/guardian denies using tobacco. - Ebola Screening: : No symptoms or risks identified at this time. Screenin:09 Abuse screen: Denies threats or abuse. Nutritional screening: No deficits noted. tr5 Tuberculosis screening: No symptoms or risk factors identified. Fall Risk None identified. Assessment: 16:00 General: Appears uncomfortable, Behavior is calm, cooperative, appropriate for age. tr5 Pain: Complains of pain in face, mid-sternal area and left breast Pain radiates to left arm Pain currently is 6 out of 10 on a pain scale. Quality of pain is described as burning, aching, Pain began 1 day ago. Neuro: Level of Consciousness is awake, alert, obeys commands, Oriented to person, place, time, Message Broker Developer are equal bilaterally Moves all extremities. Neuro: Reports headache in entire. Cardiovascular: Heart tones present Capillary refill < 3 seconds Pulses are all present. Edema is absent. Respiratory: Airway is patent Respiratory effort is even, unlabored, Respiratory pattern is regular, symmetrical. GI: No signs and/or symptoms were reported involving the gastrointestinal system. : No signs and/or symptoms were reported regarding the genitourinary system. EENT: No signs and/or symptoms were reported regarding the EENT system. Derm: No signs and/or symptoms reported regarding the dermatologic system. Skin is intact, Skin is dry, Skin is normal, Skin temperature is warm. Musculoskeletal: Capillary refill < 3 seconds, Range of motion: intact in all extremities. 16:59 Reassessment: Patient appears in no apparent distress at this time. Patient and/or tr5 family updated on plan of care and expected duration. Pain level reassessed. Patient is alert, oriented x 3, equal unlabored respirations, skin warm/dry/pink. Pt has family at bedside. 18:00 Reassessment: Patient appears in no apparent distress at this time. No changes from tr5 previously documented assessment. Patient and/or family updated on plan of care and expected duration. Pain level reassessed. Patient is alert, oriented x 3, equal unlabored respirations, skin warm/dry/pink. 19:00 Reassessment: Patient is alert, oriented x 3, equal unlabored respirations, skin tr5 warm/dry/pink. Pt in bed resting. Pt at bedside. Vital Signs: 15:43 BP 152 / 93; Pulse 113; Resp 16; Temp 97.9; Pulse Ox 96% on R/A; Weight 136.08 kg; hb Height 5 ft. 7 in. (170.18 cm); Pain 0/10; 16:08 BP 123 / 111; Pulse 116; Resp 18; Pulse Ox 97% on R/A; tr5 16:59 BP 125 / 89; Pulse 100; Resp 16; Pulse Ox 99% on R/A; tr5 18:00 BP 119 / 74; Pulse 100; Resp 17; Pulse Ox 97% on R/A; tr5 19:00 BP 153 / 94; Pulse 75; Resp 16; Pulse Ox 100% on R/A; tr5 15:43 Body Mass Index 46.99 (136.08 kg, 170.18 cm) hb ED Course: 15:34 Patient arrived in ED. rg4 15:42 Triage completed. hb 15:43 Arm band placed on. hb 15:47 Matthew Jay is Primary Nurse. wh 15:57 Tucker Meyer PA is PHCP. cp 15:57 Ramirez Fuentes MD is Attending Physician. cp 16:00 Placed in gown. Bed in low position. Call light in reach. Side rails up X 1. Cardiac tr5 monitor on. Pulse ox on. NIBP on. 16:[address] sj 16:[address] tr5 16:20 Inserted saline lock: 20 gauge in right antecubital area, using aseptic technique. tr5 16:25 Initial lab(s) drawn, by dc, sent to lab. tr5 16:30 CT completed. Patient tolerated procedure well. Patient moved back from CT. nj 16:33 CT Head Brain wo Cont In Process Unspecified. EDMS 16:35 XRAY Chest (1 view) In Process Unspecified. EDMS 16:45 Urine collected: clean catch specimen, clear. tm3 18:52 EKG done. tr5 Administered Medications: 17:02 Drug: NS 0.9% 500 ml Route: IV; Rate: bolus; Site: right antecubital; tr5 17:24 Follow up: IV Status: Completed infusion; IV Intake: 500ml tr5 17:23 Drug: NS 0.9% 500 ml Route: IV; Rate: 125 ml/hr; Site: right antecubital; tr5 17:43 Drug: Meclizine 25 mg Route: PO; 19:18 Follow up: Response: No adverse reaction tr5 17:43 Drug: TORadol 30 mg Route: IVP; Site: right antecubital; 19:17 Follow up: Response: Pain is decreased tr5 17:43 Drug: Reglan 10 mg Route: IVP; Site: right antecubital; 19:17 Follow up: Response: No adverse reaction tr5 Intake: 17:24 IV: 500ml; Total: 500ml. tr5 Outcome: 19:48 Discharge ordered by . brody 19:59 Patient left the ED. mw2 Signatures: Dispatcher [employer] EDGentry Alvarez tm3 Ana Kay Corey, PA PA cp Baxter, Heather, RN RN Elizabeth Drew rg4 Gilberto Persaud Winsy Marilee New mw2 Joel Chaudhry RN RN tr5
--- NOTE | 2019-04-22 19:50 | EDPHYS ---
Physician Documentation [facility] Name: Kumar Forman Age: 63 yrs Sex: Male : 1955 Arrival Date: 04/22/2019 Time: 15:34 Bed 26 Private MD: ED Physician Ramirez Fuentes HPI: 04/22 16:10 This 63 yrs old Male presents to ER via Wheelchair with complaints of cp Dizziness, Headache, Diarrhea. 16:10 The patient presents with dizziness. Onset: The symptoms/episode began/occurred cp yesterday. 16:10 Associated signs and symptoms: Pertinent positives: headache, tingling, dizziness, cp Pertinent negatives: abdominal pain, blurred vision, diaphoresis, focal weakness, numbness, shortness of breath, syncope, chest pain today. Severity of symptoms: in the emergency department the symptoms are unchanged despite home interventions. Patient's baseline: Neuro: alert and fully oriented, Motor: no deficits, Ambulation: walks without assistance, Speech: normal. Historical: - Allergies: 15:45 Iodine; hb 15:45 PENICILLINS; hb 15:45 AZO Standard; hb - Home Meds: 16:08 aspirin 81 mg Oral TbEC 1 tab once daily [Active]; losartan 50 mg oral tab [Active]; tr5 rabeprazole 20 mg oral TbEC [Active]; glimepiride 4 mg Oral tab [Active]; gabapentin oral 60mg oral [Active]; metformin 1,000 mg Oral tab [Active]; finasteride 5 mg oral tab [Active]; metoprolol tartrate 100 mg Oral tab 1 tab once daily [Active]; clopidogrel 75 mg oral tab [Active]; trazodone 50 mg Oral tab [Active]; - PMHx: 15:45 BPH; GERD; Myocardial infarction; hb 16:08 Ulcers; Diabetes - NIDDM; Cataracts; tr5 - PSHx: 16:08 stints x3 2003 x1 2004; Knee surgery; tr5 - Immunization history:: Adult Immunizations up to date. - Social history:: Smoking status: Patient/guardian denies using tobacco. - Ebola Screening: : No symptoms or risks identified at this time. ROS: 16:20 Constitutional: Positive for chills, Negative for fever, poor PO intake. cp 16:20 Eyes: Negative for injury, pain, redness, and discharge. cp 16:20 ENT: Negative for drainage from ear(s), ear pain, sore throat, difficulty swallowing, difficulty handling secretions. 16:20 Cardiovascular: Positive for chest pain yesterday, none today, Negative for edema, palpitations. 16:20 Respiratory: Negative for cough, shortness of breath, wheezing. 16:20 Abdomen/GI: Positive for diarrhea, Negative for abdominal pain, vomiting, constipation, black/tarry stool, rectal bleeding. 16:20 : Negative for urinary symptoms. 16:20 Skin: Negative for rash. 16:20 Neuro: Positive for dizziness, headache, tingling, weakness, Negative for altered mental status, gait disturbance, numbness, syncope, visual changes. 16:20 All other systems are negative. Exam: 16:25 Constitutional: The patient appears in no acute distress, alert, awake, cp non-diaphoretic, non-toxic, well developed, well nourished, obese. 16:25 Head/Face: Normocephalic, atraumatic. cp 16:25 Eyes: Periorbital structures: appear normal, Pupils: equal, round, and reactive to light and accomodation, Extraocular movements: intact throughout, Conjunctiva: normal, no exudate, no injection, Sclera: no appreciated abnormality, Lids and lashes: appear normal, bilaterally. 16:25 ENT: External ear(s): are unremarkable, Ear canal(s): are normal, clear, TM's: dullness, bilaterally, Nose: is normal, Mouth: Lips: moist, Oral mucosa: pink and intact, moist, Posterior pharynx: is normal, airway is patent, no erythema, no exudate. 16:25 Neck: ROM/movement: is normal, is supple, without pain, no range of motions limitations, no meningismus, no nuchal rigidity. 16:25 Chest/axilla: Inspection: normal, Palpation: is normal, no crepitus, no tenderness. 16:25 Cardiovascular: Rate: tachycardic, Rhythm: regular, Pulses: Pulses are 2+ in right radial artery and left radial artery. Edema: is not appreciated, JVD: is not appreciated. 16:25 Respiratory: the patient does not display signs of respiratory distress, Respirations: normal, no use of accessory muscles, no retractions, no splinting, no tachypnea, labored breathing, is not present, Breath sounds: are clear throughout, no decreased breath sounds, no stridor, no wheezing. 16:25 Abdomen/GI: Inspection: obese Bowel sounds: active, all quadrants, Palpation: abdomen is soft and non-tender, in all quadrants, rebound tenderness, is not appreciated, voluntary guarding, is not appreciated, involuntary guarding, is not appreciated. 16:25 Back: pain, is absent, ROM is normal. 16:25 Skin: no rash present. 16:25 Neuro: Orientation: to person, place \T\ time. Mentation: is normal, Cerebellar function: is grossly normal, Motor: moves all fours, strength is normal, Sensation: no obvious gross deficits. 16:45 ECG was reviewed by the Attending Physician. cp 18:57 ECG was reviewed by the Attending Physician. cp Vital Signs: 15:43 BP 152 / 93; Pulse 113; Resp 16; Temp 97.9; Pulse Ox 96% on R/A; Weight 136.08 kg; hb Height 5 ft. 7 in. (170.18 cm); Pain 0/10; 16:08 BP 123 / 111; Pulse 116; Resp 18; Pulse Ox 97% on R/A; tr5 16:59 BP 125 / 89; Pulse 100; Resp 16; Pulse Ox 99% on R/A; tr5 18:00 BP 119 / 74; Pulse 100; Resp 17; Pulse Ox 97% on R/A; tr5 19:00 BP 153 / 94; Pulse 75; Resp 16; Pulse Ox 100% on R/A; tr5 15:43 Body Mass Index 46.99 (136.08 kg, 170.18 cm) hb MDM: 16:02 Patient medically screened. cp 16:30 Differential diagnosis: cardiac arrhythmia, CVA, generalized weakness, GI bleed, cp hypovolemia, idiopathic dizziness, TIA. 19:47 Data reviewed: vital signs, nurses notes, lab test result(s), EKG, radiologic studies, cp CT scan, plain films. 19:47 Test interpretation: by ED physician or midlevel provider: ECG, plain radiologic cp studies. Counseling: I had a detailed discussion with the patient and/or guardian regarding: the historical points, exam findings, and any diagnostic results supporting the discharge/admit diagnosis, lab results, radiology results, the need for outpatient follow up, a family practitioner, to return to the emergency department if symptoms worsen or persist or if there are any questions or concerns that arise at home. Response to treatment: the patient's symptoms have markedly improved after treatment, and as a result, I will discharge patient. 04/22 16:09 Order name: Basic Metabolic Panel; Complete Time: 17:30 04/22 17:30 Interpretation: Normal except: CL 108; GFR 62. 04/22 16:09 Order name: CBC with Diff; Complete Time: 17:30 04/22 17:31 Interpretation: Normal except: MCV 87.1; MPV 6.6. 04/22 16:09 Order name: LFT's; Complete Time: 17:30 04/22 17:31 Interpretation: Normal except: GLOB 4.3; A/G 0.8. 04/22 16:09 Order name: Magnesium; Complete Time: 17:30 04/22 16:09 Order name: NT PRO-BNP; Complete Time: 17:30 04/22 16:09 Order name: PT-INR; Complete Time: 17:30 04/22 16:09 Order name: Troponin (emerg Dept Use Only); Complete Time: 17:30 04/22 16:09 Order name: XRAY Chest (1 view); Complete Time: 17:30 04/22 17:31 Interpretation: Report review. 04/22 16:09 Order name: CT Head Brain wo Cont; Complete Time: 17:30 04/22 17:31 Interpretation: Report reviewed. 04/22 16:09 Order name: Urine Microscopic Only; Complete Time: 18:20 04/22 18:20 Interpretation: Normal except: SQEPI 5-10. 04/22 16:46 Order name: Urine Dipstick--Ancillary (enter results); Complete Time: 17:30 pa 04/22 19:00 Order name: Troponin I 04/22 16:09 Order name: EKG; Complete Time: 16:13 04/22 16:09 Order name: Cardiac monitoring; Complete Time: 16:30 04/22 16:09 Order name: EKG - Nurse/Tech; Complete Time: 16:56 04/22 16:09 Order name: IV Saline Lock; Complete Time: 16:30 04/22 16:09 Order name: Labs collected and sent; Complete Time: 16:30 cp 04/22 16:09 Order name: O2 Per Protocol; Complete Time: 16:31 cp 04/22 16:09 Order name: O2 Sat Monitoring; Complete Time: 16:31 cp 04/22 16:09 Order name: Urine Dipstick-Ancillary (obtain specimen); Complete Time: 17:45 cp 04/22 19:00 Order name: EKG; Complete Time: 19:01 cp 04/22 19:00 Order name: EKG - Nurse/Tech; Complete Time: 19:16 cp EC:45 Rate is 115 beats/min. Rhythm is regular. MS interval is normal. QRS interval is cp normal. QT interval is normal. Interpreted by me. Reviewed by me. 18:57 Rate is 103 beats/min. Rhythm is regular. MS interval is prolonged at 202 msec. QRS cp interval is normal. QT interval is normal. Interpreted by me. Reviewed by me. Administered Medications: 17:02 Drug: NS 0.9% 500 ml Route: IV; Rate: bolus; Site: right antecubital; tr5 17:24 Follow up: IV Status: Completed infusion; IV Intake: 500ml tr5 17:23 Drug: NS 0.9% 500 ml Route: IV; Rate: 125 ml/hr; Site: right antecubital; tr5 17:43 Drug: Meclizine 25 mg Route: PO; 19:18 Follow up: Response: No adverse reaction tr5 17:43 Drug: TORadol 30 mg Route: IVP; Site: right antecubital; 19:17 Follow up: Response: Pain is decreased tr5 17:43 Drug: Reglan 10 mg Route: IVP; Site: right antecubital; 19:17 Follow up: Response: No adverse reaction tr5 Disposition: 04/22/19 19:48 Discharged to Home. Impression: Dizziness and giddiness, Headache, Chest pain, unspecified. - Condition is Stable. - Discharge Instructions: Nonspecific Chest Pain, Dizziness, General Headache Without Cause, Aspirin and Your Heart. - Prescriptions for Meclizine 25 mg Oral Tablet - take 1 tablet by ORAL route every 8 hours As needed; 30 tablet. - Medication Reconciliation Form, Thank You Letter, Antibiotic Education, Prescription Opioid Use form. - Follow up: Private Physician; When: 2 - 3 days; Reason: Recheck today's complaints. - Problem is new. - Symptoms have improved. Addendum: 04/23/2019 20:56 Co-signature as Attending Physician, Ramirez Fuentes MD. r n Signatures: Dispatcher [employer] EDRamirez Don MD MD rn Tucker Meyer PA PA cp Yasmine Xiao RN RN Habalo, Matthew Shaq, MyKena mw2 Joel Chaudhry RN RN tr5 Corrections: (The following items were deleted from the chart) 04/22 19:59 19:48 04/22/2019 19:48 Discharged to Home. Impression: Dizziness and giddiness; mw2 Headache; Chest pain, unspecified. Condition is Stable. Forms are Medication Reconciliation Form, Thank You Letter, Antibiotic Education, Prescription Opioid Use. Follow up: Private Physician; When: 2 - 3 days; Reason: Recheck today's complaints. Problem is new. Symptoms have improved. cp
--- NOTE | 2019-04-22 20:18 | EKG ---
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
[2019-04-22 20:54] VITALS: TEMP 97.9
[2019-04-22 21:01] VITALS: BP 153/94; O2SAT 100
--- NOTE | 2019-04-24 18:28 | EKG ---
Test Date: 2019-04-22 Test Time: 18:52:40 Copy Manager: TR MEASUREMENT RESULTS: Intervals: Rate: 103 MI: 202 QRSD: 88 QT: 358 QTc: 468 [place]: P: 48 MI: 202 QRS: 47 T: 13 INTERPRETIVE STATEMENTS: Sinus tachycardia Anteroseptal infarct, age undetermined Abnormal ECG Compared to ECG 04/22/2019 16:39:59 No significant changes Electronically Signed On 04-24-19 18:23:20 CDT by Donnell Harris
== END 2019-04-22 19:59 | disposition home or self-care (01) ==
LOC: ER 15:32
DX: R51 Headache (principal); R07.9 Chest pain, unspecified; E11.9 Type 2 diabetes mellitus without complications; I25.2 Old myocardial infarction; Z95.818 Presence of other cardiac implants and grafts; Z79.82 Long term (current) use of aspirin; Z88.0 Allergy status to penicillin; Z88.8 Allergy status to other drugs, medicaments and biological substances; Z91.048 Other nonmedicinal substance allergy status
CPT/HCPCS: 93005 ×2; 85025; 80048; 36415; 83735; 85610; 80076; 84484 ×2; 83880; 70450; 71045; 96375; 96374; 99285; J2765; J7030; 81003; 81015

== ENCOUNTER 2019-12-26 20:11 | Inpatient (IN) | payer BC ==
--- OUTSIDE RECORDS SUMMARY | 2019-12-26 20:13 | XMS REPORT | Clinical Summary ---
:1955 Author Organization [facility] Address [address] [place] [address] Care Team Providers Name Role Phone Arsenio Dowling Primary Care Provider Allergies Active Allergy Reactions [...] (PROSCAR) Take 5 mg by mouth 3 8 Active 5 mg tablet daily. 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
--- OUTSIDE RECORDS SUMMARY | 2019-12-26 20:14 | XMS REPORT ---
:1955 Author Organization [facility] t Address [address] [place] [address] Care Team Providers Name Role Phone Dowling DO Arsenio Primary Care Physician Payers Payer Name Policy Type Policy Number Effective Date Expiration Date S ource Problems This patient has no known problems. Allergies, Adverse Reactions, Alerts Allergy Allergy Status Severity Reaction(s) Onset Inactive Treating Comm ents Source Name Type Date Date Clinician Iodinate DA Active SV 2018-0 [facility] d 6-10 Clear Contrast 00:00: Amanda - Oral 00 Regiona and IV l [facility] Penicill DA Active SV 0 [facility] ins 6-10 Clear 00:00: Amanda 00 [facility] phenazop DA Active SV [facility] yridine 6-10 Clear 00:00: Amanda 00 [facility] Iodinate DA Active SV 0 [facility] d 1-15 [place] Contrast 00:00: Orthope - Oral 00 dic and IV [facility] Penicill DA Active SV 0 [facility] ins 8-06 [facility] [place] iodine DA Active SV 2017-0 [facility] 8-06 [facility] [place] phenazop DA Active SV [facility] yridine 8-06 [facility] [place] Phenazop [place]i Active Anaphylaxis 2018-0 [place] yridine ty to 1-29 [facility] adverse 00:00: st reaction 00 s to drug Iodine Propensi Active Anaphylaxis, IV Iodine Maldonado ty to Hives, Rash 01-20 Metho di adverse 00:00: st reaction 00 s to drug Penicill Propensi Active Anaphylaxis [place] ins ty to 01-20 [facility] adverse 00:00: st reaction 00 s to drug Social History Social Habit Start Date Stop Date Quantity Comments Source Sex Assigned At [facility] Medications Ordered Filled Start Stop Current Ordering Indication Dosage Frequency Signature Comments Components Source Medication Medication Date Date Medication? Clinician (SIG) Name Name glimepiride 2017-08 Yes Courtney ramos (AMARYL) 4 2-09 [facility] MG tablet 00:00: st 00 metFORMIN 2017-08 Yes Joel (GLUCOPHAGE 2-06 [facility] ) 1,000 mg 00:00: st tablet 00 metoprolol 2017-08 Yes 100mg QD Take 100 [place] succinate 1-29 mg by [facility] XL 00:00: mouth st (TOPROL-XL) 00 daily. 100 mg 24 hr tablet zolpidem CR 2017-08 Yes TAKE 1 [place] (AMBIEN CR) 1-23 TABLET BY Met hodi 12.5 MG CR 00:00: MOUTH AT st tablet 00 BEDTIME NEEDED FOR INSOMNIA gabapentin 2017-08 Yes 600mg Q.5D Take 600 [place] (NEURONTIN) 1-23 mg by [facility] 600 mg 00:00: mouth 2 st tablet 00 (two) times a day. losartan-hy 2017-08 Yes 1{tbl} QD Take 1 [place] drochloroth 1-23 tablet by Met hodi iazide 00:00: mouth st (HYZAAR) 00 daily. 50-12.5 mg per tablet clopidogrel 2017-08 Yes 75mg QD Take 75 mg Joel (PLAVIX) 75 1-15 by mouth Meth pined[place] mg tablet 00:00: daily. st 00 finasteride 2017-08 Yes 5mg QD Take 5 mg H bina (PROSCAR) 5 1-14 by mouth Meth [place] mg tablet 00:00: daily. st 00 Procedures This patient has no known procedures. Plan of Care Planned Activity Planned Date Details Comments Source Future Scheduled 2020-03-10 INFLUENZA VACCINE Courtney Ernandez Test 00:00:00 [code = INFLUENZA VACCINE] Future Scheduled 2005-11-30 COLONOSCOPY SCREENING [place] [facility] Test 00:00:00 [code = COLONOSCOPY SCREENING] Future Scheduled 2005-11-30 SHINGLES VACCINES [place] [facility] Test 00:00:00 (#1) [code = SHINGLES VACCINES (#1)] Results Test Description Test Time Test Comments Results Result Comments Source GLUBED 2019-08-02 22:00:00 Test Item Value Reference Range Interpretation Comme nts GLUBED (test code = GLUBED) 238 mg/dL 60-125 H - XR KNEE 1 OR 2 V [id number] 11:25:00 Patient Name: AGUEDA COOK Unit No: [id number] EXAMS: CPT CODE: [id number] XR KNEE 1 OR 2 [place] [id number] LEFT KNEE 2 VIEWS PORTABLE COMMENT: The patient is status post joint replacement which is articulating normally. at 1125 Reported and signed by: Igor Vallejo MD CC: Beverly Escobar MD Technologist: ARMANDO PORRAS. RT(R) Transcribed D/ (6097) tCELINEJCL [facility] NAME: AGUEDA COOK [address] [facility] PHYS: YANN.Jesus Manuel - Beverly Escobar : 1955 AGE: 63 SEX: M [place] [address] LOC: Y.319 A PHONE #: [phone] EXAM DATE: 07/28/2019 STATUS: ADM IN FAX #: [phone] RAD #: D/C DT PAGE 1 Signed Report Patient Name: AGUEDA COOK Unit No: [id number] EXAMS: CPT CODE: [id number] XR KNEE 1 OR 2 [place] [id number] <Continued> Orig Print D/T: S: 07/29/2019 (6898) [facility] NAME: AGUEDA COOK [address] [facility] PHYS: YANN.Jesus Manuel - Beverly Escobar : 1955 AGE: 63 SEX: M [place] [address] LOC: Y.319 A PHONE #: [phone] EXAM DATE: 07/28/2019 STATUS: ADM IN FAX #: [phone] RAD #: D/C DT PAGE 2 Signed ReportGLUBED 2019-07-29 08:39:00 Test Item Value Reference Range Interpretation Comments GLUBED (test code = GLUBED) 248 mg/dL 60-125 H BASIC METABOLIC [id number] 06:33:00 Test Item Value Reference Range Interpretation Comments SODIUM (test code = 137 mmol/L 136-145 N NA) POTASSIUM (test code = 4.4 mmol/L 3.5-5.1 N K) CHLORIDE (test code = 101.0 mmol/L 98-107 N CL) CARBON DIOXIDE (test 21.6 mmol/L 21-32 N code = CO2) GLUCOSE (test code = 211 mg/dL 70-110 H GLU) BLOOD UREA NITROGEN 25 mg/dL 7-18 H (test code = BUN) GLOMERULAR FILTRATION 59.4 >60 Unit o f measure: RATE (test code = GFR) mL/mi n/1.73 [id number] Range:Healthy Adults >90 mL/min/1.73 m2 For Chronic Kidney Disease: St age II Mild Decrease in GFR 60-90 St age III Moderate Decrease in GFR 30-59 Stage IV Severe Decre ase in GFR 15- 29 Stage V Kidney Failure <15 CREATININE (test code 1.23 mg/dL 0.55-1.30 N = CREAT) CALCIUM (test code = 7.6 mg/dL 8.2-10.1 L CA) HGB [id number] 05:49:00 Test Item Value Reference Range Interpretation Comments HEMOGLOBIN (test code = HGB) 11.8 g/dL 12-16 L HEMATOCRIT (test code = HCT) 35.8 % 37-47 L [id number] 05:26:00 Test Item Value Reference Range Interpretation Comments GLUBED (test code = GLUBED) 200 mg/dL 60-125 H [id number] 20:07:00 Test Item Value Reference Range Interpretation Comments GLUBED (test code = GLUBED) 259 mg/dL 60-125 H [id number] 07:39:00 Test Item Value Reference Range Interpretation Comments GLUBED (test code = GLUBED) 215 mg/dL 60-125 H GLYCOSYLATED HEMOGLOBIN (HA1C)2019-07-12 21:32:00 Test Item Value Reference Range Interpretation Comments GLYCOSYLATED 6.8 % 4.8-5.9 H Any condition t hat shortens HEMOGLOBIN (HA1C) erythocyte survival or (test code = GLYHGB) decreas esmean erythrocyte age (e.g., moises very from acute blood los s,hemolytic anemia) will fa lsely lower HGBA1c resultsr egardless of the method used . HGBA1c results from aurea bestamandasaeed HbSS, HbCC, and HbSc must be interpreted with cautiongiven th e pathological pr ocesses, including anemi a,increased red cell turnov er, transfusion req uirements, thatadversely i mpact HGBA1c as a marker of long-term glycemiccontrol . Alternative for ms of testing such as fructosaminesho uld be considered for these patients. GLYCOSYLATED HEMOGLOBIN (HA1C)2019-07-12 21:32:00 Test Item Value Reference Range Interpretation Comments GLYCOSYLATED 6.8 % 4.8-5.9 H Any condition t hat shortens HEMOGLOBIN (HA1C) erythocyte survival or (test code = GLYHGB) decreas esmean erythrocyte age (e.g., moises very from acute blood los s,hemolytic anemai) will fa lsely lower HGBA1c resultsr egardless of the method used . HGBA1c results frompat ients with HbSS, HbCC and HbSc must be interpreted wit hcaution given the patho logical processes, incl uding anemia,increase d red cell turnover, trans fusion requirements, t hatadversely impact HGBA1c a s a marker of long-term glycemiccontrol . Alternative for ms of testing such as fructosaminesho uld be considered for these patients.Any co ndition that shortens erytho cyte survival or dec reasesmean erythrocyte age (e.g., recovery from a cute blood loss,hemolytic anemia) will falsely lower H GBA1c resultsregardle ss of the method used. H GBA1c results from aurea keene HbSS, HbCC, and HbSc must be interpreted with cautiongiven th e pathological pr ocesses, including anemi a,increased red cell turnov er, transfusion req uirements, thatadversely i mpact HGBA1c as a marker of long-term glycemiccontrol . Alternative for ms of testing such as fructosaminesho uld be considered for these patients.DONE A T: [facility] [address] [place], [place] [address] PROTHROMBIN [id number] 20:30:00 Test Item Value Reference Range Interpretation Comments PROTHROMBIN TIME 11.5 secs 10.1-12.5 N PATIENT (test code = PTP) INTERNATIONAL NORMAL 1.03 <2.0 RECOMME NDED THERAPEUTIC RATIO (test code = RANGE FOR ORAL INR) ANTICOAGULANTTR EATMENT: CONDI TION INRProphylaxis of venous thrombos is in 2.0 - 3.0 high-risk medic al or surgical patientsTreatme nt of venous thrombos is 2.0 - 3.0Prevention o f embolism 2.0 - 3.0Prevention o f recurrent embol ism, or 3.0 - 4. 5 patients with mechanical pros thetic intravascular v cardenas SPECIMEN COMMENT: PATIENT ALSO ON PLAVIXIS PATIENT ON ANTICOAGULANTS ? YLIST ANTICOAGULANT/ANTI PLT MEDICATION : AspirinHas Lab been notified if Patient is on Heparin Drip? NOTHROMBOPLASTIN TIME [id number] 20:30:00 Test Item Value Reference Range Interpretation Comments PTT ACTIVATED (test code = APTT) 32.9 secs 24.9-37.0 N SPECIMEN COMMENT: PATIENT ALSO ON PLAVIXIS PATIENT ON ANTICOAGULANTS ? YLIST ANTICOAGULANT/ANTI PLT MEDICATION : AspirinHas Lab been notified if Patient is on Heparin Drip? NOCOMPREHENSIVE METABOLIC [id number] 20:25:00 Test Item Value Reference Range Interpretation Comments SODIUM (test code = 139 mmol/L 136-145 N NA) POTASSIUM (test code = 4.0 mmol/L 3.5-5.1 N K) CHLORIDE (test code = 102.0 mmol/L 98-107 N CL) CARBON DIOXIDE (test 24.2 mmol/L 21-32 N code = CO2) GLUCOSE (test code = 198 mg/dL 70-110 H GLU) BLOOD UREA NITROGEN 15 mg/dL 7-18 N (test code = BUN) GLOMERULAR FILTRATION 66.9 >60 Unit o f measure: RATE (test code = GFR) mL/mi n/1.73 [id number] Range:Healthy Adults >90 mL/min/1.73 m2 For Chronic Kidney Disease: St age II Mild Decrease in GFR 60-90 St age III Moderate Decrease in GFR 30-59 Stage IV Severe Decre ase in GFR 15- 29 Stage V Kidney Failure <15 CREATININE (test code 1.11 mg/dL 0.55-1.30 N = CREAT) TOTAL PROTEIN (test 6.8 g/dL 6.4-8.2 N code = PROT) ALBUMIN (test code = 3.4 g/dL 3.4-5.0 N ALB) GLOBULIN (test code = 3.4 g/dL 2.2-4.2 N GLOB) ALBUMIN/GLOBULIN RATIO 1.0 0.7-2.0 N (test code = A/G) CALCIUM (test code = 8.7 mg/dL 8.2-10.1 N CA) BILIRUBIN TOTAL (test 0.26 mg/dL 0.2-1.00 N code = BILT) SGOT/AST (test code = 30.0 U/L 15-37 N AST) SGPT/ALT (test code = 52.0 U/L 12-78 N Please note new ALT) normal range. ALKALINE PHOSPHATASE 65 U/L 46-116 N TOTAL (test code = ALKP) CBC W/AUTO [id number] 17:54:00 Test Item Value Reference Range Interpretation Comments WHITE BLOOD CELL (test code = WBC) 8.3 K/mm3 5.7-10.5 N RED BLOOD CELL (test code = RBC) 4.84 M/mm3 4.2-5.4 N HEMOGLOBIN (test code = HGB) 14.0 g/dL 12-16 N HEMATOCRIT (test code = HCT) 42.3 % 37-47 N MEAN CELL VOLUME (test code = MCV) 87 fL 80-98 N MEAN CELL HGB (test code = MCH) 28.9 pg 27-34 N MEAN CELL HGB CONCENTRATION (test 33.1 g/dL 30.8-34.1 N code = MCHC) RED CELL DISTRIBUTION WIDTH (test 13.7 % 11-16 N code = RDW) PLT (test code = PLT) 177 K/mm3 130-400 N MEAN PLATELET VOLUME (test code = 8.5 fL 8.9-12.1 L MPV) NEUTROPHIL % (test code = NT%) 65.2 % 45-70 N LYMPHOCYTE % (test code = LY%) 22.0 % 20-40 N MONOCYTE % (test code = MO%) 9.9 % 3-10 N EOSINOPHIL % (test code = EO%) 1.9 % 1-5 N BASOPHIL % (test code = BA%) 0.6 % 0.0-1.1 N NEUTROPHIL # (test code = NT#) 5.39 K/mm3 2.00-7.50 N LYMPHOCYTE # (test code = LY#) 1.82 K/mm3 1.50-4.00 N MONOCYTE # (test code = MO#) 0.82 K/mm3 0.2-0.8 H EOSINOPHIL # (test code = EO#) 0.16 K/mm3 0.04-0.4 N BASOPHIL # (test code = BA#) 0.05 K/mm3 0.02-0.10 N MANUAL DIFF REQUIRED (test code = NO MANUAL DIFF MDIFF) NUCLEATED RED BLOOD CELL (test 0 % 0-0 N code = NRBC) - XR KNEE 1 OR 2 V [id number] 12:44:00 Patient Name: AGUEDA COOK Unit No: [id number] EXAMS: CPT CODE: [id number] XR KNEE 1 OR 2 [place] [id number] RIGHT KNEE 2 VIEWS PORTABLE COMMENT: The patient is status post joint replacement which is articulating normally. at 1244 Reported and signed by: Igor Vallejo MD CC: Beverly Escobar MD Technologist: DAVION PEREZ (RT.R) Transcribed D/ (4444) t.JCL [facility] NAME: AGUEDA COOK [address] [facility] PHYS: YANN.Beverly Montiel : 1955 AGE: 63 SEX: M [place], [place] [address] LOC: Y.520 A PHONE #: [phone] EXAM DATE: 01/28/2019 STATUS: DIS IN FAX #: [phone] #: D/C DT 01/29/2019 PAGE 1 Signed Report Patient Name: AGUEDA COOK Unit No: [id number] EXAMS: CPT CODE: [id number] XR KNEE 1 OR 2 V RT [id number] <Continued> Orig Print D/T: S: 01/31/2019 (1247) [facility] NAME: AGUEDA COOK [address] [facility] [address] PHYS: YANN.06 - Beverly Escobar : 1955 AGE: 63 SEX: M [place], [place] [address] LOC: Y.520 A PHONE #: [phone] EXAM DATE: 01/28/2019 STATUS: DIS IN FAX #: [phone] RAD #: D/C DT 01/29/2019 PAGE 2 Signed ReportBASIC METABOLIC [id number] 07:38:00 Test Item Value Reference Range Interpretation Comments SODIUM (test code = 140 mmol/L 136-145 N NA) POTASSIUM (test code = 3.9 mmol/L 3.5-5.1 N K) CHLORIDE (test code = 103.0 mmol/L 98-107 N CL) CARBON DIOXIDE (test 27.7 mmol/L 21-32 N code = CO2) GLUCOSE (test code = 154 mg/dL 70-110 H GLU) BLOOD UREA NITROGEN 23 mg/dL 7-18 H (test code = BUN) GLOMERULAR FILTRATION 53.4 >60 Unit o f measure: RATE (test code = GFR) mL/mi n/1.73 q3Hmqndizvy Range:Healthy Adults >90 mL/min/1.73 m2 For Chronic Kidney Disease: St age II Mild Decrease in GFR 60-90 St age III Moderate Decrease in GFR 30-59 Stage IV Severe Decre ase in GFR 15- 29 Stage V Kidney Failure <15 CREATININE (test code 1.35 mg/dL 0.55-1.30 H = CREAT) CALCIUM (test code = 7.8 mg/dL 8.2-10.1 L CA) HGB [id number] 06:32:00 Test Item Value Reference Range Interpretation Comments HEMOGLOBIN (test code = HGB) 12.2 g/dL 12-16 N HEMATOCRIT (test code = HCT) 37.1 % 37-47 N [id number] 05:24:00 Test Item Value Reference Range Interpretation Comments GLUBED (test code = GLUBED) 149 mg/dL 60-125 H [id number] 20:47:00 Test Item Value Reference Range Interpretation Comments GLUBED (test code = GLUBED) 161 mg/dL 60-125 H [id number] 12:02:00 Test Item Value Reference Range Interpretation Comments GLUBED (test code = GLUBED) 140 mg/dL 60-125 H GLYCOSYLATED HEMOGLOBIN (HA1C)2019-01-17 13:50:00 Test Item Value Reference Range Interpretation Comments GLYCOSYLATED 6.2 % 4.8-5.9 H Any condition t hat shortens HEMOGLOBIN (HA1C) erythocyte survival or (test code = GLYHGB) decreas esmean erythrocyte age (e.g., moises very from acute blood los s,hemolytic anemai) will fa lsely lower HGBA1c resultsr egardless of the method used . HGBA1c results frompat ients with HbSS, HbCC and HbSc must be interpreted wit hcaution given the patho logical processes, incl uding anemia,increase d red cell turnover, trans fusion requirements, t hatadversely impact HGBA1c a s a marker of long-term glycemiccontrol . Alternative for ms of testing such as fructosaminesho uld be considered for these patients.Any co ndition that shortens erytho cyte survival or dec reasesmean erythrocyte age (e.g., recovery from a cute blood loss,hemolytic anemia) will falsely lower H GBA1c resultsregardle ss of the method used. H GBA1c results from aurea keene HbSS, HbCC, and HbSc must be interpreted with cautiongiven th e pathological pr ocesses, including anemi a,increased red cell turnov er, transfusion req uirements, thatadversely i mpact HGBA1c as a marker of long-term glycemiccontrol . Alternative for ms of testing such as fructosaminesho uld be considered for these patients.DONE A T: [facility] [address] [place] [address] GLYCOSYLATED HEMOGLOBIN (HA1C)2019-01-17 13:49:00 Test Item Value Reference Range Interpretation Comments GLYCOSYLATED 6.2 % 4.8-5.9 H Any condition t hat shortens HEMOGLOBIN (HA1C) erythocyte survival or (test code = GLYHGB) decreas esmean erythrocyte age (e.g., moises very from acute blood los s,hemolytic anemia) will fa lsely lower HGBA1c resultsr egardless of the method used . HGBA1c results from aurea keene HbSS, HbCC, and HbSc must be interpreted with cautiongiven th e pathological pr ocesses, including anemi a,increased red cell turnov er, transfusion req uirements, thatadversely i mpact HGBA1c as a marker of long-term glycemiccontrol . Alternative for ms of testing such as fructosaminesho uld be considered for these patients. COMPREHENSIVE METABOLIC [id number] 12:39:00 Test Item Value Reference Range Interpretation Comments SODIUM (test code = 138 mmol/L 136-145 N NA) POTASSIUM (test code = 4.1 mmol/L 3.5-5.1 N K) CHLORIDE (test code = 101.0 mmol/L 98-107 N CL) CARBON DIOXIDE (test 24.9 mmol/L 21-32 N code = CO2) GLUCOSE (test code = 127 mg/dL 70-110 H GLU) BLOOD UREA NITROGEN 18 mg/dL 7-18 N (test code = BUN) GLOMERULAR FILTRATION 58.3 >60 Unit o f measure: RATE (test code = GFR) mL/mi n/1.73 [id number] Range:Healthy Adults >90 mL/min/1.73 m2 For Chronic Kidney Disease: St age II Mild Decrease in GFR 60-90 St age III Moderate Decrease in GFR 30-59 Stage IV Severe Decre ase in GFR 15- 29 Stage V Kidney Failure <15 CREATININE (test code 1.25 mg/dL 0.55-1.30 N = CREAT) TOTAL PROTEIN (test 6.7 g/dL 6.4-8.2 N code = PROT) ALBUMIN (test code = 3.4 g/dL 3.4-5.0 N ALB) GLOBULIN (test code = 3.3 g/dL 2.2-4.2 N GLOB) ALBUMIN/GLOBULIN RATIO 1.0 0.7-2.0 N (test code = A/G) CALCIUM (test code = 8.9 mg/dL 8.2-10.1 N CA) BILIRUBIN TOTAL (test 0.27 mg/dL 0.2-1.00 N code = BILT) SGOT/AST (test code = 32.0 U/L 15-37 N AST) SGPT/ALT (test code = 52.0 U/L 12-78 N Please note new ALT) normal range. ALKALINE PHOSPHATASE 69 U/L 46-116 N TOTAL (test code = ALKP) PROTHROMBIN [id number] 12:33:00 Test Item Value Reference Range Interpretation Comments PROTHROMBIN TIME 11.4 secs 10.1-12.5 N PATIENT (test code = PTP) INTERNATIONAL NORMAL 1.01 <2.0 RECOMME NDED THERAPEUTIC RATIO (test code = RANGE FOR ORAL INR) ANTICOAGULANTTR EATMENT: CONDI TION INRProphylaxis of venous thrombos is in 2.0 - 3.0 high-risk medic al or surgical patientsTreatme nt of venous thrombos is 2.0 - 3.0Prevention o f embolism 2.0 - 3.0Prevention o f recurrent embol ism, or 3.0 - 4. 5 patients with mechanical pros thetic intravascular v cardenas IS PATIENT ON ANTICOAGULANTS ? YLIST ANTICOAGULANT/ANTI PLT MEDICATION : Plavix (Anti-PLT)Has Lab been notified if Patient is on Heparin Drip? NOIf Yes, order CBC, OCCULT BLOOD, PT every other day NTHROMBOPLASTIN TIME [id number] 12:33:00 Test Item Value Reference Range Interpretation Comments PTT ACTIVATED (test code = APTT) 28.4 secs 24.9-37.0 N IS PATIENT ON ANTICOAGULANTS ? YLIST ANTICOAGULANT/ANTI PLT MEDICATION : Plavix (Anti-PLT)Has Lab been notified if Patient is on Heparin Drip? NOIf Yes, order CBC, OCCULT BLOOD, PT every other day NCBC W/AUTO [id number] 12:29:00 Test Item Value Reference Range Interpretation Comments WHITE BLOOD CELL (test code = WBC) 8.9 K/mm3 5.7-10.5 N RED BLOOD CELL (test code = RBC) 5.04 M/mm3 4.2-5.4 N HEMOGLOBIN (test code = HGB) 14.5 g/dL 12-16 N HEMATOCRIT (test code = HCT) 44.0 % 37-47 N MEAN CELL VOLUME (test code = MCV) 87 fL 80-98 N MEAN CELL HGB (test code = MCH) 28.8 pg 27-34 N MEAN CELL HGB CONCENTRATION (test 33.0 g/dL 30.8-34.1 N code = MCHC) RED CELL DISTRIBUTION WIDTH (test 13.8 % 11-16 N code = RDW) PLT (test code = PLT) 159 K/mm3 130-400 N MEAN PLATELET VOLUME (test code = 8.5 fL 8.9-12.1 L MPV) NEUTROPHIL % (test code = NT%) 69.2 % 45-70 N LYMPHOCYTE % (test code = LY%) 18.2 % 20-40 L MONOCYTE % (test code = MO%) 9.6 % 3-10 N EOSINOPHIL % (test code = EO%) 2.1 % 1-5 N BASOPHIL % (test code = BA%) 0.6 % 0.0-1.1 N NEUTROPHIL # (test code = NT#) 6.14 K/mm3 2.00-7.50 N LYMPHOCYTE # (test code = LY#) 1.62 K/mm3 1.50-4.00 N MONOCYTE # (test code = MO#) 0.85 K/mm3 0.2-0.8 H EOSINOPHIL # (test code = EO#) 0.19 K/mm3 0.04-0.4 N BASOPHIL # (test code = BA#) 0.05 K/mm3 0.02-0.10 N MANUAL DIFF REQUIRED (test code = NO MANUAL DIFF MDIFF) NUCLEATED RED BLOOD CELL (test 0 % 0-0 N code = NRBC) URINALYSIS [id number] 12:27:00 Test Item Value Reference Range Interpretation Comments UA COLOR (test code = COLU) YELLOW YELLOW UA APPEARANCE (test code = CLEAR CLEAR APPU) UA GLUCOSE DIPSTICK (test code NEGATIVE NEGATIVE = DGLUU) UA BILIRUBIN DIPSTICK (test NEGATIVE NEGATIVE code = BILU) UA KETONE DIPSTICK (test code NEGATIVE mg/dL NEGATIVE = KETU) UA SPECIFIC GRAVITY (test code 1.025 1.003-1.035 = SGU) UA BLOOD DIPSTICK (test code = NEGATIVE NEGATIVE ENRIKE) UA PH DIPSTICK (test code = 6.0 >6.5 SUKHJINDER) UA PROTEIN DIPSTICK (test code NEGATIVE mg/dL NEG = PROU) UA UROBILINIOGEN DIPSTICK 0.2 mg/dL NORM (test code = URO) UA NITRITE DIPSTICK (test code NEGATIVE NEG = ERICA) UA LEUKOCYTE ESTERASE DIPSTICK NEGATIVE NEGATIVE (test code = LEUU) UA WBC (test code = WBCU) <5 /HPF 0-2 UA RBC (test code = RBCU) 0-2 /HPF 0-2 UA EPITHELIAL CELLS (test code FEW /HPF 0-2 = EPIU) UA BACTERIA (test code = BACU) FEW /HPF NONE - XR FLUORO [id number] 10:43:00 Patient Name: AGUEDA COOK Unit No: [id number] EXAMS: CPT CODE: [id number] XR [place]UORO NDL 69940 FLUOROSCOPICALLY GUIDED right prosthetic knee joint ASPIRATION [...] Ricardo Leonard Technologist: RT. Mendel(R) Transcribed D/ (2054) SimonGVG [facility] NAME: AGUEDA COOK[address] [facility] PHYS: Ricardo Patel : 1955 AGE: 62 SEX: M [place], [place] [address] LOC: K PHONE #: [phone] EXAM DATE: 01/08/2018 STATUS: DEP [place] #: [phone] RAD #: D/C DT PAGE 1 Signed Report Patient Name: AGUEDA COOK Unit No: [id number] EXAMS: CPT CODE: [id number] XR FLUORO NDL [id number] <Continued> Orig Print D/T: S: 01/11/2018 (1041) [facility] NAME: AGUEDA COOK [address] [facility] PHYS: Ricardo Patel : 1955 AGE: 62 SEX: Faby [place], [place] [address] LOC: UNK PHONE #: [phone] EXAM DATE: 01/08/2018 STATUS: SALVADOR CLTaina FAX #: [phone] RAD #: D/C DT PAGE 2 Signed Report
[2019-12-26 20:45] LABS: Protime INR 1.1
[2019-12-26 20:47] LABS: Basophils % 0.6 % (0-1.3); Hematocrit 41.3 % (39.6-49.0); MPV 6.9 fL (7.6-11.3); RBC Red Blood Cell Count 4.84 M/uL (4.33-5.43)
--- NOTE | 2019-12-26 20:53 | RAD REPORT ---
EXAM DESCRIPTION: RAD - Chest Single View - 12/26/2019 8:37 pm CLINICAL HISTORY: CHEST PAIN Chest pain. COMPARISON: Chest Single View dated 04/22/2019; Chest Single View dated 01/13/2018; Chest Single View d ated 01/26/2017; Chest Single View dated 01/18/2017 FINDINGS: Portable technique limits examination quality. The lungs are grossly clear. The heart is normal in size. No displaced fractures. IMPRESSION: No acute intrathoracic process suspected.
[2019-12-26 21:00] LABS: ALT/SGPT 61 U/L (12-78); AST/SGOT 40 U/L (15-37); Albumin 3.4 g/dL (3.4-5.0); Alkaline Phosphatase 78 U/L (45-117); BUN Blood Urea Nitrogen 19 mg/dL (7-18); Bicarbonate 24 mmol/L (21-32); Bilirubin Direct 0.1 mg/dL (0-0.2); Bilirubin Total 0.4 mg/dL (0.2-1.0); Glucose Level 166 mg/dL (74-106); NT PRO-BNP 156 pg/mL (<125); Potassium 3.5 mmol/L (3.5-5.1); Protein, Total 7.5 g/dL (6.4-8.2); Sodium Level 140 mmol/L (136-145); Troponin (Emerg Dept Use Only) < 0.02 ng/mL (0.0-0.045)
--- NOTE | 2019-12-26 21:44 | ER ---
Nurse's Notes [facility] Name: Kumar Forman Age: 64 yrs Sex: Male : 1955 Arrival Date: 12/26/2019 Time: 20:12 Bed 2 Private MD: Diagnosis: Other chest pain Presentation: 12/25 20:27 Chief complaint: EMS states: chest pain at 1830, left anterior chest wall. described as rv pressure 9/10 pain, radiates to center and to the back and head. no SOB. denies nausea and vomiting. given dose of Aspirin 324mg and Nitro sublingual. with history of two UT's and Atrial Fib. Coronavirus screen: Proceed with normal triage. Ebola Screen: No symptoms or risks identified at this time. 20:27 Method Of Arrival: EMS: [facility] rv 20:33 Initial Sepsis Screen: Does the patient meet any 2 criteria? No. Patient's initial rv sepsis screen is negative. Does the patient have a suspected source of infection? No. Patient's initial sepsis screen is negative. Risk Assessment: Do you want to hurt yourself or someone else? Patient reports no desire to harm self or others. Onset of symptoms was December 26, 2019 at 18:30. 20:33 Acuity: STEF 3 rv Triage Assessment: 20:35 General: Appears comfortable, Behavior is calm, cooperative. Pain: Complains of pain in rv anterior aspect of left upper chest and left breast Pain radiates to back and mid-sternal area, head. EENT: No deficits noted. Neuro: Level of Consciousness is awake, alert, obeys commands, Oriented to person, place, time, situation. Cardiovascular: Patient's skin is warm and dry. Rhythm is sinus tachycardia. Respiratory: Airway is patent Respiratory effort is even, unlabored, Breath sounds are clear bilaterally. Derm: Skin is intact. Musculoskeletal: No signs and/or symptoms reported regarding the musculoskeletal system. Historical: - Allergies: 20:35 AZO Standard; rv 20:35 Iodine; rv 20:35 PENICILLINS; rv - PMHx: 20:35 BPH; Cataracts; Diabetes - NIDDM; GERD; Myocardial infarction; Ulcers; rv - PSHx: 20:35 Heart stents; rv - Immunization history:: Adult Immunizations up to date. - Social history:: Smoking status: Patient denies any tobacco usage or history of. Screenin:37 Abuse screen: Denies threats or abuse. Denies injuries from another. Nutritional rv screening: No deficits noted. Tuberculosis screening: No symptoms or risk factors identified. Fall Risk None identified. Assessment: 23:09 Reassessment: Patient and/or family updated on plan of care and expected duration. Pain rv level reassessed. Patient is alert, oriented x 3, equal unlabored respirations, skin warm/dry/pink. PATIENT COMPLAINED OF CHEST PAIN. APPLIED NITRO PASTE ON LEFT ANT CHEST WALL. PAIN IMPROVED AFTER 30 MINUTES. AWAITING ROOM ASSIGNMENT. General:. Vital Signs: 20:30 BP 177 / 90; Pulse 108; Resp 18; Pulse Ox 97% on R/A; rv 20:33 BP 157 / 92; Pulse 108; Resp 18; Temp 98; Pulse Ox 97% ; Weight 140.61 kg; Height 5 ft. rv 3 in. (160.02 cm); Pain 5/10; 21:00 BP 152 / 95; Pulse 98; Resp 17; Pulse Ox 98% on R/A; rv 22:00 BP 140 / 85; Pulse 100; Resp 17; Pulse Ox 98% on R/A; rv 23:00 BP 126 / 82; Pulse 106; Resp 19; Pulse Ox 96% on R/A; rv 12/26 00:00 BP 145 / 97; Pulse 100; Resp 17; Pulse Ox 97% on R/A; rv 01:00 BP 166 / 80; Pulse 98; Resp 17; Pulse Ox 97% on R/A; rv 03:12 BP 148 / 86; Pulse 96; Resp 17; Temp 98; Pulse Ox 97% on R/A; rv 12/25 20:33 Body Mass Index 54.91 (140.61 kg, 160.02 cm) rv ED Course: 12/25 20:12 Patient arrived in ED. lp1 20:15 Dewayne Walker MD is Attending Physician. tw4 20:27 Emiliano Trivedi, LYRIC is Primary Nurse. rv 20:35 Triage completed. rv 20:36 Arm band placed on Patient placed in the treatment room, on a stretcher, Patient rv notified of wait time. 20:37 XRAY Chest (1 view) In Process Unspecified. EDMS 20:37 Patient has correct armband on for positive identification. Bed in low position. Call rv light in reach. Side rails up X 1. bus monitor on. Pulse ox on. NIBP on. 20:37 Maintain EMS IV. Dressing intact. Good blood return noted. Site clean \T\ dry. Gauge \T\ rv site: G20 LEFT AC. IV is patent, with fluids infusing freely, with good blood return. 20:56 No provider procedures requiring assistance completed. rv 21:42 Estevan Ramos MD is Hospitalizing Provider. 12/26 03:13 IV is patent, with fluids infusing freely, with good blood return, Patient admitted, IV rv remains in place. Administered Medications: 12/25 22:10 Drug: Nitro-Bid Ointment 2 % 1 inches Route: Transdermal; Site: anterior chest wall; rv 23:12 Follow up: Response: No adverse reaction; Marked relief of symptoms rv 22:26 Drug: Lovenox 1 mg/kg Route: Sub-Q; Site: right lower abdomen; jb4 23:11 Follow up: Response: No adverse reaction rv Outcome: 21:43 Decision to Hospitalize by Provider. [facility] 12/26 03:12 Admitted to Med/surg accompanied by nurse, via wheelchair, room 229, on monitor, with rv chart, Report called to CJ RN Condition: good Discharge instructions given to patient, Instructed on the need for admit, Demonstrated understanding of instructions. 03:13 Patient left the ED. rv Signatures: Dispatcher [employer] EDGloria Queen, RN RN lp1 Ton Centeno RN RN jb4 Dewayne Walker MD MD tw4 Emiliano Trivedi RN RN rv
--- NOTE | 2019-12-26 21:44 | EDPHYS ---
Physician Documentation [facility] Name: Kumar Forman Age: 64 yrs Sex: Male : 1955 Arrival Date: 12/26/2019 Time: 20:12 Bed 2 Private MD: ED Physician Dewayne Walker HPI: 12/25 23:07 This 64 yrs old Male presents to ER via EMS with complaints of chest pain. tw4 23:07 The patient or guardian reports chest pain that is located primarily in the anterior tw4 chest wall. Onset: today. The pain does not radiate. Associated signs and symptoms: The patient has no apparent associated signs or symptoms. The chest pain is described as dull. Duration: The patient or guardian reports a single episode. Modifying factors: The symptoms are alleviated by nothing. the symptoms are aggravated by nothing. Severity of pain: At its worst the pain was. The patient has not experienced similar symptoms in the past. Historical: - Allergies: 20:35 AZO Standard; rv 20:35 Iodine; rv 20:35 PENICILLINS; rv - PMHx: 20:35 BPH; Cataracts; Diabetes - NIDDM; GERD; Myocardial infarction; Ulcers; rv - PSHx: 20:35 Heart stents; rv - Immunization history:: Adult Immunizations up to date. - Social history:: Smoking status: Patient denies any tobacco usage or history of. ROS: 23:07 Constitutional: Negative for fever, chills, and weight loss, Eyes: Negative for injury, tw4 pain, redness, and discharge, ENT: Negative for injury, pain, and discharge, Neck: Negative for injury, pain, and swelling, Respiratory: Negative for shortness of breath, cough, wheezing, and pleuritic chest pain, Abdomen/GI: Negative for abdominal pain, nausea, vomiting, diarrhea, and constipation, Back: Negative for injury and pain, MS/Extremity: Negative for injury and deformity, Skin: Negative for injury, rash, and discoloration. 23:07 Cardiovascular: Positive for chest pain, Negative for edema, orthopnea, palpitations, paroxysmal nocturnal dyspnea. Exam: 23:07 Constitutional: This is a well developed, well nourished patient who is awake, alert, tw4 and in no acute distress. Head/Face: Normocephalic, atraumatic. Chest/axilla: Normal chest wall appearance and motion. Nontender with no deformity. No lesions are appreciated. Cardiovascular: Regular rate and rhythm with a normal S1 and S2. No gallops, murmurs, or rubs. Normal PMI, no JVD. No pulse deficits. Respiratory: Lungs have equal breath sounds bilaterally, clear to auscultation and percussion. No rales, rhonchi or wheezes noted. No increased work of breathing, no retractions or nasal flaring. Abdomen/GI: Soft, non-tender, with normal bowel sounds. No distension or tympany. No guarding or rebound. No evidence of tenderness throughout. Back: No spinal tenderness. No costovertebral tenderness. Full range of motion. MS/ Extremity: Pulses equal, no cyanosis. Neurovascular intact. Full, normal range of motion. Neuro: Awake and alert, GCS 15, oriented to person, place, time, and situation. Cranial nerves II-XII grossly intact. Motor strength 5/5 in all extremities. Sensory grossly intact. Cerebellar exam normal. Normal gait. Vital Signs: 20:30 BP 177 / 90; Pulse 108; Resp 18; Pulse Ox 97% on R/A; rv 20:33 BP 157 / 92; Pulse 108; Resp 18; Temp 98; Pulse Ox 97% ; Weight 140.61 kg; Height 5 ft. rv 3 in. (160.02 cm); Pain 5/10; 21:00 BP 152 / 95; Pulse 98; Resp 17; Pulse Ox 98% on R/A; rv 22:00 BP 140 / 85; Pulse 100; Resp 17; Pulse Ox 98% on R/A; rv 23:00 BP 126 / 82; Pulse 106; Resp 19; Pulse Ox 96% on R/A; rv 12/26 00:00 BP 145 / 97; Pulse 100; Resp 17; Pulse Ox 97% on R/A; rv 01:00 BP 166 / 80; Pulse 98; Resp 17; Pulse Ox 97% on R/A; rv 03:12 BP 148 / 86; Pulse 96; Resp 17; Temp 98; Pulse Ox 97% on R/A; rv 18 20:33 Body Mass Index 54.91 (140.61 kg, 160.02 cm) rv MDM: 12/25 20:15 Patient medically screened. tw4 23:07 Differential diagnosis: pneumonia, pulmonary embolus, thoracic aortic disection. HEART tw4 Score: History: Moderately Suspicious (1), ECG: Non specific repolarization disturbance / LBTB / PM (1), Age: > 45 and < 65 years (1), Risk Factors: > or = 3 Risk factors for atherosclerotic disease (2), [Hypercholesterolemia] [Hypertension] [DM] [+ Family HX] Troponin: < or = 1 x Normal Limit (0), Total Score = 5. Data reviewed: vital signs, nurses notes. Data interpreted: Pulse oximetry: Interpretation:. Counseling: I had a detailed discussion with the patient and/or guardian regarding: the historical points, exam findings, and any diagnostic results supporting the discharge/admit diagnosis. Medication response: Nitro x 1 relieved pain. Response to treatment: the patient's symptoms have markedly improved after treatment, and as a result, I will admit patient. Physician consultation: Estevan Ramos MD regarding admission, to the telemetry unit. patient's condition, and will see patient in ED. 23:14 Data reviewed: lab test result(s), cardiac enzymes, CBC, hepatic panel, EKG, radiologic tw4 studies, plain films. Test interpretation: by ED physician or midlevel provider: ECG, plain radiologic studies. 12/25 20:17 Order name: Basic Metabolic Panel; Complete Time: 22:02 12/25 22:02 Interpretation: Normal except: GLUC 166; GFR 68; BUN 19. 12/25 20:17 Order name: CBC with Diff; Complete Time: 22:02 12/25 22:02 Interpretation: Normal except: MPV 6.9. 12/25 20:17 Order name: LFT's; Complete Time: 22:02 12/25 22:02 Interpretation: Normal except: AST 40; A/G 0.8; GLOB 4.1. 12/25 20:17 Order name: Magnesium; Complete Time: 22:02 12/25 22:02 Interpretation: Within normal limits: MG 2.0. 12/25 20:17 Order name: NT PRO-BNP; Complete Time: 22:02 12/25 22:02 Interpretation: Normal except: NT PRO-BNP 156. 12/25 20:17 Order name: PT-INR; Complete Time: 22:02 12/25 22:02 Interpretation: Normal except: PT 13.0. tw4 12/25 20:17 Order name: Troponin (emerg Dept Use Only); Complete Time: 22:02 tw4 12/25 22:03 Interpretation: Within normal limits: TROPED < 0.02. tw4 12/25 22:47 Order name: Basic Metabolic Panel [facility]WA 12/25 22:47 Order name: Basic Metabolic Panel [facility] 12/25 22:47 Order name: CBC with Automated Diff EDMS 12/25 22:47 Order name: CBC with Automated Diff EDMS 12/25 22:47 Order name: Lipid Profile [facility]WA 12/25 22:47 Order name: Lipid Profile [facility] 12/25 22:47 Order name: PTT, Activated Partial Thromb [facility]WA 12/25 20:17 Order name: XRAY Chest (1 view); Complete Time: 22:02 tw4 12/25 20:17 Order name: EKG; Complete Time: 20:18 tw4 12/25 20:17 Order name: Cardiac monitoring; Complete Time: 20:31 tw4 12/25 20:17 Order name: EKG - Nurse/Tech; Complete Time: 20:55 tw4 12/25 20:17 Order name: IV Saline Lock; Complete Time: 20:55 tw4 12/25 22:47 Order name: CONS Physician Consult [facility] 12/25 22:47 Order name: NPO [facility] 12/25 22:47 Order name: Echo with Doppler [facility]WA 12/25 22:47 Order name: EKG Electrocardiogram [facility] 12/25 22:47 Order name: EKG Electrocardiogram [facility] 12/25 22:47 Order name: PTT, Activated Partial Thromb [facility] 12/25 22:47 Order name: Troponin I [facility] 12/25 22:47 Order name: Troponin I [facility] 12/25 22:47 Order name: Troponin I [facility] 12/25 20:17 Order name: Labs collected and sent; Complete Time: 20:55 tw4 12/25 20:17 Order name: O2 Per Protocol; Complete Time: 20:55 tw4 12/25 20:17 Order name: O2 Sat Monitoring; Complete Time: 20:55 tw4 EC:07 Rate is 109 beats/min. Rhythm is regular. Left axis deviation noted. WV interval is tw4 normal. QRS interval is normal. QT interval is normal. No Q waves. T waves are Flattened in leads III, V1. No ST changes noted. Clinical impression: Sinus tachycardia. Interpreted by me. Reviewed by me. Administered Medications: 22:10 Drug: Nitro-Bid Ointment 2 % 1 inches Route: Transdermal; Site: anterior chest wall; rv 23:12 Follow up: Response: No adverse reaction; Marked relief of symptoms rv 22:26 Drug: Lovenox 1 mg/kg Route: Sub-Q; Site: right lower abdomen; jb4 23:11 Follow up: Response: No adverse reaction rv Disposition: 12/26/19 21:43 Hospitalization ordered by Estevan Ramos for Inpatient Admission. Preliminary diagnosis is Other chest pain. - Bed requested for Telemetry/MedSurg (Inpatient). - Status is Inpatient Admission. rv - Condition is Stable. - Problem is new. - Symptoms have improved. Signatures: Dispatcher [employer] EDEmmy Anaya RN RN Ton Centeno RN RN jb Dewayne Walker MD MD tw Emiliano Trivedi RN RN rv Corrections: (The following items were deleted from the chart) 12/26 02:19 12/25 21:43 Hospitalization Ordered by Estevan Ramos MD for Inpatient Admission. cg Preliminary diagnosis is Other chest pain. Bed requested for Telemetry/MedSurg (Inpatient). Status is Inpatient Admission. Condition is Stable. Problem is new. Symptoms have improved. [facility] 12/26 03:13 02:19 12/26/2019 21:43 Hospitalization Ordered by Estevan Ramos MD for Inpatient rv Admission. Preliminary diagnosis is Other chest pain. Bed requested for Telemetry/MedSurg (Inpatient). Status is Inpatient Admission. Condition is Stable. Problem is new. Symptoms have improved. cg
[2019-12-26] MEDS ORDERED: NITROGLYCERIN 1 GM PKT TD ONE (22:08)
[2019-12-26] MEDS ORDERED: ENOXAPARIN 100 MG/ML SYR SQ ONE (22:23)
[2019-12-26] MEDS ORDERED: ENOXAPARIN 40 MG/0.4 ML SQ ONE (22:23)
[2019-12-26] MEDS ORDERED: ALPRAZOLAM 0.25 MG TABLET PO PRN (22:42)
[2019-12-26] MEDS ORDERED: ACETAMINOPHEN 500 MG TAB PO PRN (22:42)
[2019-12-27 04:13] VITALS: BMI 48.4
[2019-12-27 05:28] LABS: Absolute Lymphocytes (CBC) 1.9 K/uL (0.7-4.9); Basophils % 0.6 % (0-1.3); Hematocrit 40.3 % (39.6-49.0); Lymphocytes % 23.3 % (15.3-44.8); MPV 6.8 fL (7.6-11.3); RBC Red Blood Cell Count 4.69 M/uL (4.33-5.43)
[2019-12-27 05:54] LABS: BUN Blood Urea Nitrogen 20 mg/dL (7-18); Bicarbonate 27 mmol/L (21-32); Glucose Level 198 mg/dL (74-106); HDL Cholesterol 35 mg/dL (40-60); Potassium 4.1 mmol/L (3.5-5.1); Sodium Level 140 mmol/L (136-145)
[2019-12-27] MEDS: METOPROLOL TAR 50 MG TAB PO SCH ×2 (06:00→09:00)
[2019-12-27 06:07] LABS: LDL, Direct 97 mg/dL (100-129)
--- NOTE | 2019-12-27 07:00 | EKG ---
Test Date: 2019-12-26 Test Time: 20:18:53 Fiberglass Fabricator: RV MEASUREMENT RESULTS: Intervals: Rate: 109 NC: 186 QRSD: 90 QT: 342 QTc: 460 [place]: P: 34 NC: 186 QRS: 0 T: 22 INTERPRETIVE STATEMENTS: Sinus tachycardia Inferior infarct, age undetermined Anterolateral infarct, age undetermined Abnormal ECG Compared to ECG 04/22/2019 18:52:40 No significant changes Electronically Signed On 12-27-19 07:00:03 CDT by Donnell Harris
[2019-12-27] MEDS ORDERED: REGADENOSON 0.4 MG/5 ML SYR IV ONE (08:18)
--- NOTE | 2019-12-27 08:50 | P.HP ---
Patient History Date of Service: 12/26/19 Reason for admission: Chest pain rule out acute coronary syndrome History of Present Illness: Patient is a 64-year-old gentleman who came to the hospital with chest discomfort. Pain started around 6:30 p.m. and involved the left anterior chest wall. Patient states the pain was not a 10/10. It went to his neck and to his back. Patient took an aspirin and sublingual nitro and his symptoms have been feeling better. Patient history of cardiac disease as well as atrial fibrillation. Patient will be admitted to the hospital to be ruled out for acute coronary syndrome. Cardiology consultation will also be obtained along with an echocardiogram and Lexiscan stress test. Allergies iodine Allergy (Intermediate, Verified 12/27/19 04:14) Hives/Rash Penicillins Allergy (Intermediate, Verified 12/27/19 04:14) Hives/Rash phenazopyridine Adverse Reaction (Verified 12/27/19 04:14) Anaphylaxis Home Medications: Aspirin [Aspirin EC 81 MG] 1 tab PO DAILY 12/27/19 Clopidogrel Bisulfate [Plavix*] 1 tab PO DAILY 12/27/19 Finasteride 5 mg PO DAILY 12/27/19 Gabapentin 1 tab PO BID 12/27/19 Glimepiride 1 tab PO BID 12/27/19 Losartan Potassium 1 tab PO DAILY 12/27/19 Metformin HCl 1 tab PO BID 12/27/19 Metoprolol Succinate [Toprol Xl] 1 tab PO DAILY 12/27/19 Montelukast Sodium 1 tab PO DAILY 12/27/19 Rabeprazole Sodium 1 tab PO DAILY 12/27/19 - Past Medical/Surgical History Has patient received pneumonia vaccine in the past: Yes Diabetic: No -: HTN -: Hyperlipidemia -: BPH -: GERD -: [place] -: Heart stent, 2004 -: Heart stent, 2005 -: Cataract Surgery (Right eye) -: Total Left Knee Replacement -: Cholecystectomy - Family History Father Family History: Reviewed- Non-Contributory - Social History Smoking Status: Never smoker Alcohol use: No CD- Drugs: No Caffeine use: Yes Place of Residence: Home Review of Systems 10-point ROS is otherwise unremarkable Physical Examination - Vital Signs Temperature: 97.5 F Blood Pressure: 144/76 Pulse: 88 Respirations: 20 Pulse Ox (%): 95 - Physical Exam General: Alert, In no apparent distress, Oriented x3 HEENT: Atraumatic, PERRLA, Mucous membr. moist/pink, EOMI, Sclerae nonicteric Neck: Supple, 2+ carotid pulse no bruit, No LAD, Without JVD or thyroid abnormality Respiratory: Clear to auscultation bilaterally, Normal air movement Cardiovascular: Regular rate/rhythm, Normal S1 S2, Systolic murmur Gastrointestinal: Normal bowel sounds, Soft and benign, Non-distended, No tenderness, No rebound, No guarding Musculoskeletal: No clubbing, No swelling, No tenderness Integumentary: No rashes Neurological: Normal gait, Normal speech, Normal strength at 5/5 x4 extr, Normal tone, Sensation intact, Cranial nerves 3-12 intact, Normal affect Lymphatics: No axilla or inguinal lymphadenopathy - Studies Laboratory Data (last 24 hrs) 12/26/19 20:22: PT 13.0 H, INR 1.10 12/26/19 20:22: WBC 8.9, Hgb 13.8, Hct 41.3, Plt Count 184 12/26/19 20:22: Sodium 140, Potassium 3.5, BUN 19 H, Creatinine 1.09, Glucose 166 H, Magnesium 2.0, Total Bilirubin 0.4, AST 40 H, ALT 61, Alkaline Phosphatase 78 Assessment & Plan - Problems (Diagnosis) (1) Chest pain, rule out acute myocardial infarction Current Visit: Yes Status: Acute (2) Hypertension Current Visit: Yes Status: Acute (3) Coronary artery disease Onset Date: 01/19/17 Current Visit: No Status: Acute (4) Diabetes mellitus type 2 in obese Current Visit: No Status: Acute (5) Status post left knee replacement Onset Date: 01/12/17 Current Visit: No Status: Acute - Plan 1. Serial troponins and EKG 2. Cardiology consultation 3. Echocardiogram and stress test in AM 4. Anti-platelet therapy, anti coagulation, beta-santana, statin, and O2 as needed 5. IV morphine for pain 6. Nitro p.r.n. 7. Strict blood pressure and blood sugar control 8. GI and DVT prophylaxis Discharge Plan: Home Plan to discharge in: 24 Hours - Advance Directives Does patient have a Living Will: No Does patient have a Durable POA for Healthcare: No - Code Status/Comfort Care Code Status Assessed: Yes Code Status: Full Code Critical Care: No Time Spent Managing PTS Care (In Minutes): 45
--- NOTE | 2019-12-27 08:52 | P.DS ---
Discharge Date: 12/27/19 Disposition: ROUTINE DISCHARGE Discharge Condition: GOOD Reason for Admission: Chest pain rule out acute coronary syndrome Consultations: Cardiology - Problems (1) Chest pain, rule out acute myocardial infarction Current Visit: Yes Status: Acute (2) Hypertension Current Visit: Yes Status: Acute (3) Coronary artery disease Onset Date: 01/19/17 Current Visit: No Status: Acute (4) Diabetes mellitus type 2 in obese Current Visit: No Status: Acute (5) Status post left knee replacement Onset Date: 01/12/17 Current Visit: No Status: Acute Brief History of Present Illness: Patient is a 64-year-old gentleman who came to the hospital with chest discomfort. Pain started around 6:30 p.m. and involved the left anterior chest wall. Patient states the pain was not a 10/10. It went to his neck and to his back. Patient took an aspirin and sublingual nitro and his symptoms have been feeling better. Patient history of cardiac disease as well as atrial fibrillation. Patient will be admitted to the hospital to be ruled out for acute coronary syndrome. Cardiology consultation will also be obtained along with an echocardiogram and Lexiscan stress test. Vital Signs/Physical Exam: Temp Pulse Resp BP Pulse Ox 97.5 F 88 20 144/76 H 95 12/27/19 08:49 12/27/19 08:49 12/27/19 08:49 12/27/19 08:49 12/27/19 08:49 General: Alert, In no apparent distress, Oriented x3 Laboratory Data at Discharge: WBC 8.2 K/uL (4.3-10.9) 12/27/19 05:14 Hgb 13.3 g/dL (13.6-17.9) L 12/27/19 05:14 Hct 40.3 % (39.6-49.0) 12/27/19 05:14 Plt Count 171 K/uL (152-406) 12/27/19 05:14 PT 13.0 SECONDS (9.5-12.5) H 12/26/19 20:22 INR 1.10 12/26/19 20:22 APTT 38.5 SECONDS (24.3-36.9) H 12/27/19 05:14 Sodium 140 mmol/L (136-145) 12/27/19 05:14 Potassium 4.1 mmol/L (3.5-5.1) 12/27/19 05:14 BUN 20 mg/dL (7-18) H 12/27/19 05:14 Creatinine 1.16 mg/dL (0.55-1.3) 12/27/19 05:14 Glucose 198 mg/dL (74-106) H 12/27/19 05:14 Magnesium 2.0 mg/dL (1.8-2.4) 12/26/19 20:22 Total Bilirubin 0.4 mg/dL (0.2-1.0) 12/26/19 20:22 AST 40 U/L (15-37) H 12/26/19 20:22 ALT 61 U/L (12-78) 12/26/19 20:22 Alkaline Phosphatase 78 U/L (45-117) 12/26/19 20:22 Troponin I < 0.02 ng/mL (0.0-0.045) 12/27/19 02:11 Triglycerides Cancelled 12/27/19 08:30 Cholesterol Cancelled 12/27/19 08:30 LDL Cholesterol Direct 97 mg/dL (100-129) L 12/27/19 05:14 HDL Cholesterol Cancelled 12/27/19 08:30 Cholesterol/HDL Ratio Cancelled 12/27/19 08:30 Home Medications: RX: Aspirin [Aspirin EC 81 MG] 1 tab PO DAILY 12/27/19 RX: Clopidogrel Bisulfate [Plavix*] 1 tab PO DAILY 12/27/19 RX: Finasteride 5 mg PO DAILY 12/27/19 RX: Gabapentin 1 tab PO BID 12/27/19 RX: Glimepiride 1 tab PO BID 12/27/19 RX: Losartan Potassium 1 tab PO DAILY 12/27/19 RX: Metformin HCl 1 tab PO BID 12/27/19 RX: Metoprolol Succinate [Toprol Xl] 1 tab PO DAILY 12/27/19 RX: Montelukast Sodium 1 tab PO DAILY 12/27/19 RX: Rabeprazole Sodium 1 tab PO DAILY 12/27/19 Patient Discharge Instructions: OK TO DC IV AND DC HOME. FOLLOW-UP WITH PRIMARY CARE PROVIDER IN 1-2 WEEKS. FOLLOW-UP WITH CARDIOLOGY IN 1-2 WEEKS. RETURN TO THE ER IF symptoms worsen. CALL or TEXT DR. RENEE AT [phone] IF ANY QUESTIONS REGARDING HOSPITAL STAY. PLEASE CALL THE FLOOR AT [phone] IF ANY MEDICATION OR NURSING QUESTIONS. Diet: AHA Activity: Fall precautions Time spent managing pt's care (in minutes): 35
[2019-12-27] MEDS ORDERED: ASPIRIN EC 81 MG TAB PO SCH (09:00)
[2019-12-27] MEDS ORDERED: RABEPRAZOLE SODIUM PO SCH (09:00)
[2019-12-27] MEDS ORDERED: LOSARTAN POTASSIUM 50 MG TABLET PO SCH (09:00)
--- NOTE | 2019-12-27 10:36 | RAD REPORT ---
EXAM DESCRIPTION: NM - Rest Stress Cardiac Imaging - 12/27/2019 10:28 am CLINICAL HISTORY: Chest pain. COMPARISON: None. TECHNIQUE: The patient was administered approximately 10mCi of Tc 99m Sestamibi prior to resting SPE CT imaging of the heart. The patient was then administered approximately 30 mCi of Tc 99m Sestamibi f ollowing exercise or pharmacologic stress. Multiplanar SPECT images were reviewed. FINDINGS: A moderate area of diminished radiotracer activity involves the apical left ventricular m yocardium on stress sequences This demonstrates normal radiotracer uptake on rest images The left ventricular ejection fraction 54% IMPRESSION: Moderate area of reversible perfusion defect involving the apical left ventricular myoc ardium probably stress-induced ischemia
[2019-12-27] MEDS: PANTOPRAZOLE 40MG TABLET PO SCH (12:07)
[2019-12-27] MEDS: MONTELUKAST 10 MG TAB PO SCH (12:07)
[2019-12-27] MEDS: FINASTERIDE 5 MG TAB PO SCH (12:07)
[2019-12-27] MEDS: ASPIRIN EC 81 MG TAB PO SCH (12:07)
[2019-12-27] MEDS: CLOPIDOGREL 75 MG TABLET PO SCH (12:08)
[2019-12-27] MEDS: METOPROLOL XL 100 MG TAB PO SCH (12:08)
[2019-12-27] MEDS: GABAPENTIN 300 MG CAP PO SCH ×2 (12:08→21:45)
[2019-12-27] MEDS: MORPHINE 4 MG/ML SYR IV PRN ×2 (12:09→17:58)
--- NOTE | 2019-12-27 13:52 | TREADPHA ---
DX: CHEST PAIN Date of Study: 12/27/2019 Ht: 5' 3 " Wt: 308 lb 14.4 oz Consulting Physician: LITA MEDICATIONS: TYLENOL, XANAX, ASPIRIN, LOVENOX, LOPRESSOR HISTORY: 64 YEAR OLD MALE WITH COMPLAINTS OF CHEST PAIN. 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 PHYSICIAL EXAMINATION: RESTING B.P.: 167/89 RESTING H.R.: 97 RESTING EKG: SINUS RYHTHM, OLD ANTERIOR MYOCARDIAL INFARCTION, OLD INFERIOR MAYOCARDIAL INFARTION. PROTOCOL: LEXISCAN EXERCISE TIME: 3:30 B.P. AT [place] STRESS: 142/82 IMPRESSION: LEXISCAN INJECTED, FOLLOWED BY CARDIOLITE PER PROTOCOL. SEE NUCLEAR MEDICINE REPORT. PATIENT HAD OCCASIONAL PREMATURE VENTRICULAR COMPLEXES. ONE SECOND RUN OF VENTRICULAR TACHYCARDIA. NO SUPRAVENTRICULAR TACHYCARDIA, PREMATURE ATRIAL COMPLEXES. PATIENT REPORTED CHEST PAIN 8/10.
--- NOTE | 2019-12-27 15:53 | P.PN ---
Subjective Date of Service: 12/27/19 Chief Complaint: Chest pain rule out acute coronary syndrome Physical Examination - Vital Signs Temperature: 97.5 F Blood Pressure: 152/87 Pulse: 91 Respirations: 20 Pulse Ox (%): 95 - Studies Laboratory Data (last 24 hrs) 12/26/19 20:22: PT 13.0 H, INR 1.10 12/26/19 20:22: WBC 8.9, Hgb 13.8, Hct 41.3, Plt Count 184 12/26/19 20:22: Sodium 140, Potassium 3.5, BUN 19 H, Creatinine 1.09, Glucose 166 H, Magnesium 2.0, Total Bilirubin 0.4, AST 40 H, ALT 61, Alkaline Phosphatase 78 Assessment & Plan Physician Review Additional Text: Patient had abnormal cardiac stress test. Report shows Moderate area of reversible perfusion defect involving the apical left ventricular myocardium probably stress-induced ischemia. Patient will likely require heart catheterization tomorrow. Will discuss with cardiology. Will also discuss with art display maker
[2019-12-27] MEDS ORDERED: METFORMIN HCL 500 MG TAB PO SCH (17:00)
[2019-12-27] MEDS ORDERED: GLUCAGON 1 MG/VIAL IM PRN (17:24)
[2019-12-27] MEDS ORDERED: D50W 25 GM/50 ML SYRINGE/VIAL IV PRN (17:24)
[2019-12-27] MEDS ORDERED: HYDRALAZINE HCL 20 MG/ML VIAL IV PRN (17:26)
[2019-12-27] MEDS: GLIMEPIRIDE 2 MG TABLET PO SCH (17:57)
[2019-12-27] MEDS ORDERED: ATORVASTATIN 40 MG TAB PO SCH (21:00)
[2019-12-27] MEDS ORDERED: predniSONE 20 MG TAB PO ONE (21:00)
[2019-12-27] MEDS ORDERED: ENOXAPARIN 40 MG/0.4 ML SQ SCH (21:00)
[2019-12-27] MEDS: DOCOSAHEXANOIC AC/EPA 1000 MG PO SCH (21:46)
[2019-12-27] MEDS: LOSARTAN POTASSIUM 50 MG TABLET PO SCH (21:46)
[2019-12-27] MEDS: INSULIN -REGULAR HUMAN 50 UNIT/0.5 ML ML SQ SCH (21:47)
--- NOTE | 2019-12-28 | CON ---
Date of Consultation: 12/27/[address] Ramos's service on 12/26/2019. Reason For Consultation: Chest pain. History Of Present Illness: Mr. Forman is a 64-year-old white male, he is very well known to me from o ffice visits and admission. His last catheterization was 2013, where he had a patent LAD stent, morillo nt circumflex stent, he had a 40% RCA. He has done actually very well since. Comes in with chest pa in, midsternal, radiating to the back with some diaphoresis, shortness of breath. No nausea, vomitin g, PND, orthopnea, pedal edema, palpitations, or syncope. By the time I saw him, he has already rule d out for an VT. His EKG showed sinus tachycardia, BNP, troponin, CPKs, and MBs were negative. His glucose was 198. His triglyceride, however, was 628. This was nonfasting. Past Medical History: Includes diabetes, hypertriglyceridemia, coronary artery disease status post s tents, hypertension, asthma, and neuropathy. Allergies: HE IS ALLERGIC TO IODINE AND PENICILLIN. Review of Systems: Negative. Social History: Negative. Family History: Positive for heart disease. Medications: At home include, 1.Aspirin. 2.Losartan. 3.Metformin. 4.Plavix. 5.Glimepiride. 6.Finasteride. 7.Metoprolol. 8.Neurontin. 9.Glimepiride. Physical Examination: Vital Signs: He weighed 308 pounds. Vital signs were stable, afebrile. HEENT: Negative. Neck: Supple with no bruit, lymphadenopathy, JVD, or thyromegaly. Chest: Clear. Cardiac: Reveals regular rhythm and rate. No murmurs, gallops, or rubs. Abdomen: Benign. Extremities: Revealed no clubbing, cyanosis, or edema. Diagnostic Data: As stated earlier. Impression And Plan: This is a patient with known coronary artery disease. Last catheterization was 2013. He has an LAD stent, circumflex stent. His symptoms are concerning. I will order an echocar diogram and a Lexiscan today and make a decision depending what that shows. Meanwhile, we will sade nue his medicine as they are. He has diabetes that is fairly well controlled. His dyslipidemia is p oorly controlled, although his triglyceride was nonfasting. His blood pressure, asthma, and neuropat hy are controlled. He does have allergies to iodine. If we have to do a catheterization, we will pr etreat him with steroids. CHRIS/MODL Voice ID: [id number] Report ID: [id number]
[2019-12-28] MEDS ORDERED: predniSONE 20 MG TAB PO ONE (06:00)
[2019-12-28 06:30] LABS: Magnesium 1.9 mg/dL (1.8-2.4); Potassium 4.2 mmol/L (3.5-5.1)
[2019-12-28] MEDS ORDERED: HEPA 1000U/500MLS 1,000 UNIT/500 ML BAG IV ONE (06:41)
[2019-12-28] MEDS ORDERED: LIDOCAINE 1% 20 ML MDV ONE (06:41)
[2019-12-28] MEDS: METOPROLOL XL 100 MG TAB PO SCH (06:52)
[2019-12-28] MEDS: CLOPIDOGREL 75 MG TABLET PO SCH (06:52)
[2019-12-28] MEDS: ASPIRIN EC 81 MG TAB PO SCH (06:52)
[2019-12-28] MEDS ORDERED: MIDAZOLAM HCL 2 MG/2 ML INJ ONE ×2 (06:55→07:07)
[2019-12-28] MEDS ORDERED: ATROPINE SULF 1 MG/10 ML SYR IV ONE (06:56)
[2019-12-28] MEDS ORDERED: NA CHLORIDE 0.9% 0 ML ONE (06:56)
[2019-12-28] MEDS ORDERED: FENTANYL CITR 100 MCG/2 ML ONE (06:56)
[2019-12-28] MEDS ORDERED: NA CHLORIDE 0.9% 500 ML ONE (07:03)
--- NOTE | 2019-12-28 07:10 | ECHO ---
HEIGHT: 5 ft 7 in WEIGHT: 308 lb 0 oz DATE OF STUDY: 12/27/[address]: Estevan Ramos MD 2-DIMENSIONAL: YES M.MODE: YES DOPPLER: YES COLOR FLOW: YES TDS: YES PORTABLE: DEFINITY: BUBBLE STUDY: DIAGNOSIS: CHEST PAIN CARDIAC HISTORY: CATHERIZATION: NO SURGERY: NO PROSTHETIC VALVE: NO PACEMAKER: NO MEASUREMENTS (cm) DIASTOLIC (NORMALS) SYSTOLIC (NORMALS) IVSd 1.3 (0.6-1.2) LA Diam (1.9-4.0) LVEF 69% LVIDd 3.5 (3.5-5.7) LVIDs 2.2 (2.0-3.5) %FS 38% LVPWd 1.3 (0.6-1.2) Ao Diam 3.0 (2.0-3.7) 2 DIMENSIONAL ASSESSMENT: RIGHT ATRIUM: NORMAL LEFT ATRIUM: NORMAL RIGHT VENTRICLE: NORMAL LEFT VENTRICLE: LEFT VENTRICULAR HYPERTROPHY TRICUSPID VALVE: NORMAL MITRAL VALVE: NORMAL PULMONIC VALVE: NORMAL AORTIC VALVE: NORMAL PERICARDIAL EFFUSION: NONE AORTIC ROOT: NORMAL LEFT VENTRICULAR WALL MOTION: NORMAL DOPPLER/COLOR FLOW: NORMAL COMMENTS: LEFT VENTRICULAR HYPERTROPHY. NORMAL LEFT VENTRICULAR EJECTION FRACTION AND SIZE. NO WALL MOTION ABNORMALITY. TECHNOLOGIST: DANIA PARRISH/ JUAN LOZANO
[2019-12-28] MEDS: INSULIN -REGULAR HUMAN 50 UNIT/0.5 ML ML SQ SCH ×3 (07:30→16:15)
[2019-12-28] MEDS ORDERED: METHYLPREDNISOLONE 125 MG INJ ONE (07:33)
[2019-12-28] MEDS ORDERED: NITROGLYCERIN/D5W 50 MG/250 ML BTL IV ONE (07:58)
[2019-12-28] MEDS: GLIMEPIRIDE 2 MG TABLET PO SCH ×2 (08:00→16:14)
[2019-12-28] MEDS: FINASTERIDE 5 MG TAB PO SCH (09:00)
[2019-12-28] MEDS: GABAPENTIN 300 MG CAP PO SCH (09:00)
[2019-12-28] MEDS: DOCOSAHEXANOIC AC/EPA 1000 MG PO SCH (09:00)
[2019-12-28] MEDS: MONTELUKAST 10 MG TAB PO SCH (09:00)
[2019-12-28] MEDS: LOSARTAN POTASSIUM 50 MG TABLET PO SCH (09:00)
[2019-12-28] MEDS: PANTOPRAZOLE 40MG TABLET PO SCH (09:00)
--- NOTE | 2019-12-28 09:29 | P.PN ---
Subjective Date of Service: 12/28/19 Patient is still having some chest pain. Scheduled for stress test today. May need further intervention pending cardiology evaluation. Review of Systems 10-point ROS is otherwise unremarkable Physical Examination - Vital Signs Temperature: 97.2 F Blood Pressure: 119/57 Pulse: 75 Respirations: 20 Pulse Ox (%): 96 - Physical Exam General: Alert, In no apparent distress, Oriented x3 Respiratory: Clear to auscultation bilaterally, Normal air movement Cardiovascular: Regular rate/rhythm, Normal S1 S2, No murmurs Gastrointestinal: Normal bowel sounds, Soft and benign, Non-distended, No tenderness Musculoskeletal: No clubbing, No swelling, No tenderness Neurological: Normal speech, Normal strength at 5/5 x4 extr, Normal tone - Studies Medications List Reviewed: Yes Assessment & Plan - Problems (Diagnosis) (1) Chest pain, rule out acute myocardial infarction Status: Acute (2) Hypertension Status: Acute (3) Coronary artery disease Onset Date: 01/19/17 Status: Acute (4) Diabetes mellitus type 2 in obese Status: Acute (5) Status post left knee replacement Onset Date: 01/12/17 Status: Acute - Plan awaiting further cardiac testing at this time. Cardiology consultation pendi ng. 1. Serial troponins and EKG 2. Cardiology consultation pending 3. Echocardiogram and stress test in AM 4. Anti-platelet therapy, anti coagulation, beta-santana, statin, and O2 as needed 5. IV morphine for pain 6. Nitro p.r.n. 7. Strict blood pressure and blood sugar control 8. GI and DVT prophylaxis Discharge Plan: Home Plan to discharge in: 48 Hours - Advance Directives Does patient have a Living Will: No Does patient have a Durable POA for Healthcare: No - Code Status/Comfort Care Code Status: Full Code Critical Care: No Time Spent Managing PTS Care (In Minutes): 20
--- NOTE | 2019-12-28 13:24 | P.DS ---
Admission Date: 12/28/19 Discharge Date: 12/28/19 Primary Care Provider: unknown Disposition: TRANSFER TO [facility] Discharge Condition: GOOD Reason for Admission: Chest pain rule out acute coronary syndrome Consultations: Cardiology-Dr. Harris Procedures: Cardiac stress test: FINDINGS: A moderate area of diminished radiotracer activity involves the apic al left ventricular myocardium on stress sequences This demonstrates normal radiotracer uptake on rest images The left ventricular ejection fraction 54% IMPRESSION: Moderate area of reversible perfusion defect involving the apical left ventricular myocardium probably stress-induced ischemia ECHO: EF 69% LEFT VENTRICULAR WALL MOTION: NORMAL DOPPLER/COLOR FLOW: NORMAL COMMENTS: LEFT VENTRICULAR HYPERTROPHY. NORMAL LEFT VENTRICULAR EJECTION FRACTION AND SIZE. NO WALL MOTION ABNORMALITY. Heart catheterization: Performed by Cardiology. Abnormal findings noted. [facility]. Cardiology has discuss case with cardiovascular surgery. Medical problem list: Chest pain with history of CAD status post heart catheterization showing extensive CAD requiring CABG Hypertension Diabetes mellitus type 2 Hyperlipidemia Obesity, BMI 48 Brief History of Present Illness: 64-year-old male with history of CAD and prior stent presented to emergency room with chest pain. The patient was admitted for further evaluation. Other medical condition includes diabetes, hyperlipidemia, hypertension, asthma and diabetic neuropathy. Patient with last heart catheterization 2013 showing patent LAD stent, patent circumflex stent. He had 40% stenosis of the RCA at that time. Hospital Course: Patient presented with chest pain. Patient with prior heart catheterization in 2013 showing patent LAD stent, patent circumflex stent and 40% stenosis to the RCA. Patient was evaluated in the hospital. Patient was seen by Cardiology. Patient had cardiac stress test which was abnormal. Heart catheterization was recommended. Heart catheterization performed by Cardiology. Heart catheterization findings were abnormal. Cardiology spoke to cardiovascular surgery for transfer patient for CABG. Arrangements have been made. [facility] for further evaluation and treatment by CV surgery. Other medical problems include diabetes mellitus type 2, hyperlipidemia, hypertension, asthma, and diabetic neuropathy. Patient will continue with current medications at this time. Vital Signs/Physical Exam: Temp Pulse Resp BP Pulse Ox 97.2 F 87 16 127/63 98 12/28/19 09:29 12/28/19 12:54 12/28/19 12:54 12/28/19 12:54 12/28/19 10:15 General: Alert, In no apparent distress, Cooperative HEENT: Atraumatic Neck: Supple Respiratory: Clear to auscultation bilaterally, Normal air movement Cardiovascular: Normal pulses, Regular rate/rhythm Gastrointestinal: Normal bowel sounds, Soft and benign, Non-distended, No masses, No rebound, No guarding Neurological: Normal speech, Normal strength at 5/5 x4 extr, Normal tone, Normal affect Laboratory Data at Discharge: WBC 8.2 K/uL (4.3-10.9) 12/27/19 05:14 Hgb 13.3 g/dL (13.6-17.9) L 12/27/19 05:14 Hct 40.3 % (39.6-49.0) 12/27/19 05:14 Plt Count 171 K/uL (152-406) 12/27/19 05:14 PT 13.0 SECONDS (9.5-12.5) H 12/26/19 20:22 INR 1.10 12/26/19 20:22 APTT 38.5 SECONDS (24.3-36.9) H 12/27/19 05:14 Sodium 138 mmol/L (136-145) 12/28/19 05:47 Potassium 4.2 mmol/L (3.5-5.1) 12/28/19 05:47 BUN 16 mg/dL (7-18) 12/28/19 05:47 Creatinine 1.14 mg/dL (0.55-1.3) 12/28/19 05:47 Glucose 291 mg/dL (74-106) H 12/28/19 05:47 Magnesium 1.9 mg/dL (1.8-2.4) 12/28/19 05:47 Total Bilirubin 0.4 mg/dL (0.2-1.0) 12/26/19 20:22 AST 40 U/L (15-37) H 12/26/19 20:22 ALT 61 U/L (12-78) 12/26/19 20:22 Alkaline Phosphatase 78 U/L (45-117) 12/26/19 20:22 Troponin I < 0.02 ng/mL (0.0-0.045) 12/27/19 08:45 Triglycerides Cancelled 12/27/19 08:45 Cholesterol Cancelled 12/27/19 08:45 LDL Cholesterol Direct 97 mg/dL (100-129) L 05/19/20 05:14 HDL Cholesterol Cancelled 12/27/19 08:45 Cholesterol/HDL Ratio Cancelled 12/27/19 08:45 Home Medications: Aspirin [Aspirin EC 81 MG] 1 tab PO DAILY 12/27/19 Clopidogrel Bisulfate [Plavix*] 1 tab PO DAILY 12/27/19 Finasteride 5 mg PO DAILY 12/27/19 Gabapentin 1 tab PO BID 12/27/19 Glimepiride 1 tab PO BID 12/27/19 Losartan Potassium 1 tab PO DAILY 12/27/19 Metformin HCl 1 tab PO BID 12/27/19 Metoprolol Succinate [Toprol Xl] 1 tab PO DAILY 12/27/19 Montelukast Sodium 1 tab PO DAILY 12/27/19 Rabeprazole Sodium 1 tab PO DAILY 12/27/19 predniSONE [Prednisone*] 20 mg PO BID #6 tab 12/27/19 New Medications: predniSONE [Prednisone*] 20 mg PO BID #6 tab Patient Discharge Instructions: Patient be transferred to [facility] for CV surgery. Patient had abnormal heart catheterization. Patient with underlying diabetes, hypertension, diabetic neuropathy, hyperlipidemia and asthma. Diet: AHA Activity: Bedrest Time spent managing pt's care (in minutes): 55
[2019-12-28 16:47] VITALS: O2SAT 98
--- NOTE | 2019-12-28 23:37 | OP ---
Date of Procedure: 12/28/2019 Surgeon: Donnell Harris MD Manager Zone: Simone Guzman. Procedure: Left heart catheterization, selective coronary arteriogram. Indication: Unstable angina and positive stress test and history of coronary artery disease. Description Of Procedure: Mr. Forman was brought to the lab intern as an inpatient today. He was preppe d and draped in the routine sterile fashion. A 6-[place] sheath introduced in the right common femora l artery successfully. 6-[place] Citizen catheters Caitlyn were used to do the diagnostic catheterization. H rivas was found to have a normal left main. He had a 90% proximal circumflex, had a 90% proximal obtuse marginal. He had severe stenosis in the LAD from the ostium of the LAD all the way to past the first diagonal including severe in-stent restenosis. He had a 99% stenosis there within the stent. He monroe d a JORDAN 2 flow. His RCA showed a 40% stenosis. Following the catheterization, Mr. Forman developed S T-elevation with chest pain that resolved immediately after nitroglycerin. He had no complications. Blood Loss: 5 mL. Anesthesia: Total conscious sedation was 30 minutes. Final Diagnosis: Severe coronary artery disease. Plan: Tiffany for a GARZA to LAD and a vein graft to the OM. The patient was placed on ni troglycerin drip and sent to the ICU. He was hemodynamically stable without any symptoms. The sheat h was left in the right common femoral artery as well as the right common femoral vein and that was s utured in place. Case was discussed with and with his family. The case was discussed with Dr. Allen. The patient will go to the ICU. CHRIS/CHUY Voice ID: [id number] Report ID: [id number]
[2020-01-02 06:08] VITALS: BP 119/57; TEMP 97.2
== END 2019-12-28 16:40 | disposition short-term general hospital (02) | DRG 287 ==
LOC: ER 20:11 → ERHOLD 22:42 → 2ND 12-27 02:30 → 3RD-ICU 12-28 08:27 → OBSVTOIN 12-28 11:08
PROVIDERS: ADMIT Hospitalist; ATTEND Hospitalist
PROC: 4A023N7 Measurement of Cardiac Sampling and Pressure, Left Heart, Percutaneous Approach (ICD-10-PCS; principal; 2019-12-28)
PROC: B2111ZZ Fluoroscopy of Multiple Coronary Arteries using Low Osmolar Contrast (ICD-10-PCS; 2019-12-28)
DX: I25.10 Atherosclerotic heart disease of native coronary artery without angina pectoris (principal); Z68.42 Body mass index [BMI] 45.0-49.9, adult; E11.40 Type 2 diabetes mellitus with diabetic neuropathy, unspecified; J45.909 Unspecified asthma, uncomplicated; I10 Essential (primary) hypertension; K21.9 Gastro-esophageal reflux disease without esophagitis; E78.5 Hyperlipidemia, unspecified; E66.9 Obesity, unspecified; I25.2 Old myocardial infarction; Z88.6 Allergy status to analgesic agent; Z88.0 Allergy status to penicillin; Z88.8 Allergy status to other drugs, medicaments and biological substances; Z79.82 Long term (current) use of aspirin; Z79.02 Long term (current) use of antithrombotics/antiplatelets; Z79.84 Long term (current) use of oral hypoglycemic drugs; Z79.899 Other long term (current) drug therapy; Z95.5 Presence of coronary angioplasty implant and graft; Z96.652 Presence of left artificial knee joint; Z90.49 Acquired absence of other specified parts of digestive tract
CPT/HCPCS: 36415; 71045; 78452; 80048; 80061; 80076; 82947; 83036; 83735; 83880; 84484; 85025; 85610; 85730; 93005; 93017; 93306; 93454; 96372; 99285; A9500; C1893; G0378; J0583; J1650; J2250; J2785; J2930; J3010; J7040; J7512

== ENCOUNTER 2020-08-11 18:48 | Inpatient (IN) | payer BC, OTHER ==
--- OUTSIDE RECORDS SUMMARY | 2020-08-11 18:52 | XMS REPORT | Clinical Summary ---
:1955 Author Organization [facility] Address [address] [place] [address] Care Team Providers Name Role Phone System, Not In Primary Care Provider Unavailable Allergies Active Allergy Reactions Severity Noted Date Comments Iodine Anaphylaxis, Hives, Rash High 01/21/2016 Oth er reaction(s): Hives/Rash IV Iodine Penicillins Anaphylaxis, Hives High 01/21/2016 Phenazopyridine Anaphylaxis High 09/07/2017 Medications Medication Sig Dispensed Refills Start End Date Status Date finasteride Take 5 mg by mouth 0 Active (PROSCAR) 5 mg daily. 0 tablet glimepiride Take 4 mg by mouth 0 Active (AMARYL) 4 MG 2 (two) times 0 tablet daily. montelukast Take 1 tablet by 0 A ctive (SINGULAIR) 10 mouth daily. 0 mg tablet gabapentin Take 1 tablet by 0 Ac tive (NEURONTIN) 600 mouth daily. 0 MG tablet RABEprazole Take 1 tablet by 0 A ctive (ACIPHEX) 20 mg mouth daily. 0 EC tablet insulin glargine Inject 50 Units 45 mL 3 Active (LANTUS SOLOSTAR subcutaneously 2 0 U-100 INSULIN) (two) times daily. 100 unit/mL (3 mL) InPn insulin aspart To use from 15 to 45 mL 3 Active U-100 (NOVOLOG 45 units three 0 FLEXPEN U-100 times a day by INSULIN) 100 sliding sale unit/mL (3 mL) before meals. InPn pen needle, To use 5 a day. 500 each 3 Ac tive diabetic 31 0 gauge x 5/16" Ndle blood-glucose Glucometer: test 400 each 3 01/06/20 Active meter kit strips to use 4 a 0 21 day # 400 refills x 3;lancets to use 4 a day # 400 Refills x3. HYDROcodone-acet Take 1 tablet by 30 tablet 0 Active aminophen (NORCO mouth every 6 0 7.5-325) 7.5-325 (six) hours as mg per tablet needed. Max Daily Amount: 4 tablets aspirin 81 MG Take 1 tablet (81 0 01/07/20 Active chewable tablet mg total) by mouth 0 21 daily. atorvastatin Take 1 tablet (40 30 tablet 1 01/06/20 Active (LIPITOR) 40 MG mg total) by mouth 0 21 tablet nightly. metoprolol Take 75 mg by 60 tablet 1 01/06/20 Activ e tartrate 75 mg mouth 2 (two) 0 21 Tab times daily. amiodarone Take 1 tablet (400 30 tablet 1 01/07/20 Active (PACERONE) 400 mg total) by mouth 0 21 MG tablet daily. torsemide Take 1 tablet (20 60 tablet 1 01/06/20 Ac tive (DEMADEX) 20 MG mg total) by mouth 0 21 tablet 2 (two) times daily. clopidogreL Take 75 mg by 0 01/06/20 Disc ontinued (PLAVIX) 75 mg mouth daily. 0 20 (S top Taking at tablet Discharge) losartan-hydroCH 0 01/06/20 Dis continued LOROthiazide 0 20 (Stop T aking at (HYZAAR) 50-12.5 Dis charge) mg per tablet metFORMIN Take 1,000 mg by 0 12/30/19 Dis continued (GLUCOPHAGE) mouth 2 (two) 0 20 1000 MG tablet times daily. metoprolol Take 100 mg by 0 01/06/20 Disc ontinued succinate mouth daily. 0 20 (Stop T aking at (TOPROL-XL) 100 Disc harge) MG 24 hr tablet HYDROcodone-acet Take 1 tablet by 0 Discontinued aminophen (NORCO mouth every 6 0 20 (Reorder) 7.5-325) 7.5-325 (six) hours as mg per tablet needed. lisinopriL Take 1 tablet (2.5 30 tablet 1 01/18/20 Discontinued (PRINIVIL,ZESTRI mg total) by mouth 0 20 L) 2.5 MG tablet daily. Active Problems Problem Noted Date Coronary artery disease 12/29/2019 S/P ACB x2 by Dr. Nguyen on 12/29/19 12/28/2019 Acute respiratory insufficiency Morbid obesity with BMI of 45.0-49.9, adult Acute blood loss anemia Hyperglycemia Hypotension after procedure Acute respiratory failure with hypoxia S/P CABG (coronary artery bypass graft) Paroxysmal atrial fibrillation Encounters Date Type Specialty Care Team Description 03/08/2020 Telephone Cardiology BELINDA Knott 30 day post op LYRIC Crain follow up call 01/18/2020 Office Visit Cardiology Rodri Nguyen Post-operat miles Aguilera MD state 01/18/2020 Travel 12/29/2019 Surgery Rodri Nguyen BYPASS,AORT O MD Ale CORONARY CHRISTIANO/SV G 12/29/2019 Anesthesia Event Roshni Vincent MD Nguyen, Anvinh, MD 12/29/2019 Travel 12/28/2019 - Hospital Encounter Cardiology Flavio Hirsch, Acute blood loss anemia; 01/06/2020 Coronary artery disease involving autolo gous vein bypass graft, angina presence unspecified Eagle Levine MD Valluri, Sri Kartik, MD Varughese, Roy, MD 12/28/2019 Orders Only General Internal Medicine after 08/11/2019 Social History Tobacco Use Types Packs/Day Years Used Date Former Smoker Cigars 30 Quit: 12/12/18 90 Smokeless Tobacco: Former User Chew Q uit: 12/26/2019 Alcohol Use Drinks/Week oz/Week Comments Yes 1 Cans of beer 1.0 Alcohol Habits Answer Date Recorded How often do you have a drink containing alcohol? 2-4 times a month 12/28/2019 How many drinks containing alcohol do you have on a 1 or 2 12/28/2019 typical day when you are drinking? How often do you have six or more drinks on one Never 12/28/2019 occasion? Education Answer Date Recorded What is the highest level of school you have completed or 12 th grade 12/28/2019 the highest degree you have received? Financial Resource Strain Answer Date Recorded How hard is it for you to pay for the very basics like Somew hat hard 12/28/2019 food, housing, medical care, and heating? Food Insecurity Answer Date Recorded Within the past 12 months, you worried that your food would Never true 12/28/2019 run out before you got money to buy more. Within the past 12 months, the food you bought just didn't N ever true 12/28/2019 last and you didn't have money to get more. Transportation Needs Answer Date Recorded In the past 12 months, has lack of transportation kept you f rom No 12/28/2019 medical appointments or from getting medications? In the past 12 months, has lack of transportation kept you f rom No 12/28/2019 meetings, work, or getting things needed for daily living? Sex Assigned at Date Recorded Not on file Last Filed Vital Signs Vital Sign Reading Time Taken Comments Blood Pressure 111/52 01/18/2020 11:18 AM CDT Pulse 75 01/18/2020 11:18 AM CDT Temperature 36.8 C (98.3 F) 01/18/2020 11:18 AM CDT Respiratory Rate 18 01/18/2020 11:18 AM CDT Oxygen Saturation 96% 01/18/2020 11:18 AM room iar CDT Inhaled Oxygen Concentration 40% 01/01/2020 11:38 PM CDT Weight 139.8 kg (308 lb 4.8 oz) 01/18/2020 11:18 AM CDT Height 170.2 cm (5' 7") 01/18/2020 11:18 AM CDT Body Mass Index 48.29 01/18/2020 11:18 AM CDT Plan of Treatment Health Maintenance Due Date Last Done Comments COLON CANCER SCREENING COLONOSCOPY 1955 INFLUENZA VACCINE (#1) 2020 09/10/2017 LIPID PANEL 12/28/2022 12/29/2019, 12/28/2019 PNEUMOCOCCAL VACCINE 0-64 YRS Completed 09/10/2017 Procedures Procedure Name Priority Date/Time Associated Comments Diagnosis RHYTHM STRIP - SCAN 01/18/2020 3:40 PM CDT RHYTHM STRIP - SCAN 01/09/2020 1:50 PM CDT VASCULAR DIAGRAM -SCAN 01/09/2020 1:50 PM CDT POCT-GLUCOSE METER Routine 01/06/2020 11:06 Resul ts for this AM CDT procedure are i n the results section. POCT-GLUCOSE METER Routine 01/06/2020 7:35 Resul ts for this AM CDT procedure are i n the results section. CBC (HEMOGRAM ONLY) Routine 01/06/2020 5:22 Resu lts for this AM CDT procedure are i n the results section. CALCIUM, IONIZED DAVID 01/06/2020 5:22 Results for this AM CDT procedure are i n the results section. PHOSPHORUS Routine 01/06/2020 5:21 Results for this AM CDT procedure are i n the results section. MAGNESIUM Routine 01/06/2020 5:21 Results for this AM CDT procedure are i n the results section. POCT-GLUCOSE METER Routine 01/05/2020 10:16 Resul ts for this PM CDT procedure are i n the results section. POCT-GLUCOSE METER Routine 01/05/2020 4:35 Resul ts for this PM CDT procedure are i n the results section. POCT-GLUCOSE METER Routine 01/05/2020 11:37 Resul ts for this AM CDT procedure are i n the results section. POCT-GLUCOSE METER Routine 01/05/2020 7:21 Resul ts for this AM CDT procedure are i n the results section. CALCIUM, IONIZED DAVID 01/05/2020 4:44 Results for this AM CDT procedure are i n the results section. BASIC METABOLIC PANEL Routine 01/05/2020 4:00 Re sults for this (7) AM CDT procedure are i n the results section. PHOSPHORUS Routine 01/05/2020 4:00 Results for this AM CDT procedure are i n the results section. MAGNESIUM Routine 01/05/2020 4:00 Results for this AM CDT procedure are i n the results section. CBC (HEMOGRAM ONLY) Routine 01/05/2020 4:00 Resu lts for this AM CDT procedure are i n the results section. POCT-GLUCOSE METER Routine 01/04/2020 8:56 Resul ts for this PM CDT procedure are i n the results section. BASIC METABOLIC PANEL Routine 01/04/2020 5:04 Re sults for this (7) PM CDT procedure are i n the results section. POCT-GLUCOSE METER Routine 01/04/2020 4:58 Resul ts for this PM CDT procedure are i n the results section. POCT-GLUCOSE METER Routine 01/04/2020 12:13 Resul ts for this PM CDT procedure are i n the results section. LIMITED 2D Routine 01/04/2020 11:38 Results for this ECHOCARDIOGRAM AM CDT procedure are in the results section. POCT-GLUCOSE METER Routine 01/04/2020 8:12 Resul ts for this AM CDT procedure are i n the results section. BASIC METABOLIC PANEL Routine 01/04/2020 5:24 Re sults for this (7) AM CDT procedure are i n the results section. PHOSPHORUS Routine 01/04/2020 5:24 Results for this AM CDT procedure are i n the results section. MAGNESIUM Routine 01/04/2020 5:24 Results for this AM CDT procedure are i n the results section. CBC (HEMOGRAM ONLY) Routine 01/04/2020 5:24 Resu lts for this AM CDT procedure are i n the results section. CALCIUM, IONIZED DAVID 01/04/2020 5:24 Results for this AM CDT procedure are i n the results section. XR CHEST 1 VIEW Routine 01/04/2020 3:46 Results for this PORTABLE/BEDSIDE AM CDT procedure a re in the results section. POCT-GLUCOSE METER Routine 01/03/2020 9:59 Resul ts for this PM CDT procedure are i n the results section. BASIC METABOLIC PANEL Routine 01/03/2020 5:17 Re sults for this (7) PM CDT procedure are i n the results section. POCT-GLUCOSE METER Routine 01/03/2020 11:34 Resul ts for this AM CDT procedure are i n the results section. POCT-GLUCOSE METER Routine 01/03/2020 7:25 Resul ts for this AM CDT procedure are i n the results section. LIPASE Routine 01/03/2020 3:01 Results for this AM CDT procedure are i n the results section. AMYLASE Routine 01/03/2020 3:01 Results for this AM CDT procedure are i n the results section. HEPATIC FUNCTION PANEL Routine 01/03/2020 3:01 R esults for this AM CDT procedure are i n the results section. PHOSPHORUS Routine 01/03/2020 3:01 Results for this AM CDT procedure are i n the results section. MAGNESIUM Routine 01/03/2020 3:01 Results for this AM CDT procedure are i n the results section. CBC (HEMOGRAM ONLY) Routine 01/03/2020 3:01 Resu lts for this AM CDT procedure are i n the results section. CALCIUM, IONIZED DAVID 01/03/2020 3:01 Results for this AM CDT procedure are i n the results section. BASIC METABOLIC PANEL Routine 01/03/2020 3:01 Re sults for this (7) AM CDT procedure are i n the results section. XR CHEST 1 VIEW Routine 01/03/2020 2:45 Results for this PORTABLE/BEDSIDE AM CDT procedure a re in the results section. POCT-GLUCOSE METER Routine 01/02/2020 10:45 Resul ts for this PM CDT procedure are i n the results section. MAGNESIUM Routine 01/02/2020 5:47 Results for this PM CDT procedure are i n the results section. POTASSIUM Routine 01/02/2020 5:47 Results for this PM CDT procedure are i n the results section. POCT-GLUCOSE METER Routine 01/02/2020 5:26 Resul ts for this PM CDT procedure are i n the results section. US ABDOMEN COMPLETE STAT 01/02/2020 5:08 Resu lts for this PM CDT procedure are i n the results section. SPUTUM CULTURE + GRAM Routine 01/02/2020 1:21 Re sults for this STAIN PM CDT procedure are i n the results section. D-DIMER Routine 01/02/2020 1:05 Results for this PM CDT procedure are i n the results section. CBC (HEMOGRAM ONLY) Routine 01/02/2020 1:05 Resu lts for this PM CDT procedure are i n the results section. PROCALCITONIN Routine 01/02/2020 1:05 Results fo r this PM CDT procedure are i n the results section. HEPATIC FUNCTION PANEL Routine 01/02/2020 1:05 R esults for this PM CDT procedure are i n the results section. LIPASE Routine 01/02/2020 1:05 Results for this PM CDT procedure are i n the results section. AMYLASE Routine 01/02/2020 1:05 Results for this PM CDT procedure are i n the results section. POCT-GLUCOSE METER Routine 01/02/2020 11:35 Resul ts for this AM CDT procedure are i n the results section. URINALYSIS W/ REFLEX Routine 01/02/2020 11:05 Res ults for this URINE CULTURE AM CDT procedure are in the results section. POCT-GLUCOSE METER Routine 01/02/2020 7:21 Resul ts for this AM CDT procedure are i n the results section. PHOSPHORUS Routine 01/02/2020 3:25 Results for this AM CDT procedure are i n the results section. OXYGEN SATURATION, Routine 01/02/2020 3:25 Resul ts for this MEASURED AM CDT procedure are i n the results section. MAGNESIUM Routine 01/02/2020 3:25 Results for this AM CDT procedure are i n the results section. CBC (HEMOGRAM ONLY) Routine 01/02/2020 3:25 Resu lts for this AM CDT procedure are i n the results section. CALCIUM, IONIZED DAVID 01/02/2020 3:25 Results for this AM CDT procedure are i n the results section. BASIC METABOLIC PANEL Routine 01/02/2020 3:25 Re sults for this (7) AM CDT procedure are i n the results section. XR CHEST 1 VIEW Routine 01/02/2020 2:10 Results for this PORTABLE/BEDSIDE AM CDT procedure a re in the results section. POCT-GLUCOSE METER Routine 01/01/2020 10:34 Resul ts for this PM CDT procedure are i n the results section. POCT-GLUCOSE METER Routine 01/01/2020 4:35 Resul ts for this PM CDT procedure are i n the results section. CALCIUM, IONIZED Routine 01/01/2020 4:34 Results for this PM CDT procedure are i n the results section. MAGNESIUM Routine 01/01/2020 4:34 Results for this PM CDT procedure are i n the results section. POTASSIUM Routine 01/01/2020 4:34 Results for this PM CDT procedure are i n the results section. SPUTUM CULTURE + GRAM Routine 01/01/2020 1:10 Re sults for this STAIN PM CDT procedure are i n the results section. 2D ECHO W/ DOPPLER STAT 01/01/2020 12:24 Resul ts for this (CW/PW/COLOR) PM CDT procedure are in the results section. POCT-GLUCOSE METER Routine 01/01/2020 12:07 Resul ts for this PM CDT procedure are i n the results section. PROCALCITONIN Routine 01/01/2020 10:38 Results fo r this AM CDT procedure are i n the results section. MAGNESIUM Routine 01/01/2020 10:38 Results for this AM CDT procedure are i n the results section. POTASSIUM Routine 01/01/2020 10:38 Results for this AM CDT procedure are i n the results section. POCT-GLUCOSE METER Routine 01/01/2020 7:46 Resul ts for this AM CDT procedure are i n the results section. PHOSPHORUS Routine 01/01/2020 3:43 Results for this AM CDT procedure are i n the results section. OXYGEN SATURATION, Routine 01/01/2020 3:43 Resul ts for this MEASURED AM CDT procedure are i n the results section. MAGNESIUM Routine 01/01/2020 3:43 Results for this AM CDT procedure are i n the results section. CBC (HEMOGRAM ONLY) Routine 01/01/2020 3:43 Resu lts for this AM CDT procedure are i n the results section. CALCIUM, IONIZED DAVID 01/01/2020 3:43 Results for this AM CDT procedure are i n the results section. BASIC METABOLIC PANEL Routine 01/01/2020 3:43 Re sults for this (7) AM CDT procedure are i n the results section. XR CHEST 1 VIEW Routine 01/01/2020 12:32 Results for this PORTABLE/BEDSIDE AM CDT procedure a re in the results section. POCT-GLUCOSE METER Routine 12/31/2019 10:32 Resul ts for this PM CDT procedure are i n the results section. TRANSFUSION SERVICE 12/31/2019 5:52 REPORT - SCAN PM CDT POCT-GLUCOSE METER Routine 12/31/2019 4:36 Resul ts for this PM CDT procedure are i n the results section. MAGNESIUM Routine 12/31/2019 2:08 Results for this PM CDT procedure are i n the results section. POTASSIUM Routine 12/31/2019 2:08 Results for this PM CDT procedure are i n the results section. LACTIC ACID, VENOUS STAT 12/31/2019 11:35 Resu lts for this AM CDT procedure are i n the results section. POCT-GLUCOSE METER Routine 12/31/2019 11:09 Resul ts for this AM CDT procedure are i n the results section. POCT-GLUCOSE METER Routine 12/31/2019 6:19 Resul ts for this AM CDT procedure are i n the results section. ECG 12-LEAD Routine 12/31/2019 5:03 AM CDT Procedure Note - Interface, External Ris In - 01/01/2020 6:28 AM CDT Ventricular Rate 136 BPM Atrial Rate 96 BPM QRS Duration 74 ms Q-T Interval 342 ms QTC Calculation(Bazett) 514 ms R [place] 26 degrees T [place] 13 degrees Atrial fibrillation with rap id ventricular response Septal infarct (cited on or before 28-DEC-2019) Abnormal ECG When compared with ECG of 05:03, Previous ECG has undetermine d rhythm, needs review ECG 12-LEAD STAT 12/31/2019 5:03 AM CDT Resu lts for this procedure are in the results section . ECG 12-LEAD Routine 12/31/2019 5:03 AM CDT Procedure Note - Interface, External Ris In - 01/01/2020 6:28 AM CDT Ventricular Rate 139 BPM Atrial Rate 127 BPM QRS Duration 72 ms Q-T Interval 326 ms QTC Calculation(Bazett) 496 ms R [place] 31 degrees T [place] 19 degrees Undetermined rhythm Low voltage QRS Septal infarct (cited on or before 28-DEC-2019) Abnormal ECG When compared with ECG of 18:34, Current undetermined rhythm precludes rhythm comparison, needs review Minimal criteria for Inferio r infarct are no longer Present Nonspecific T wave abnormali ty, worse in Lateral leads ECG 12-LEAD STAT 12/31/2019 5:03 AM CDT Resu lts for this procedure are i n the results section . OXYGEN SATURATION, MEASURED Routine 12/31/2019 4:21 AM CDT Results for this procedure are i n the results section . BLOOD GAS, ARTERIAL Routine 12/31/2019 4:19 AM CDT Results for this procedure are i n the results section . PHOSPHORUS Routine 12/31/2019 4:15 AM CDT Resu lts for this procedure are i n the results section . MAGNESIUM Routine 12/31/2019 4:15 AM CDT Resu lts for this procedure are i n the results section . CBC (HEMOGRAM ONLY) Routine 12/31/2019 4:15 AM CDT Results for this procedure are i n the results section . BASIC METABOLIC PANEL (7) Routine 12/31/2019 4:15 AM CDT Results for this procedure are i n the results section . CALCIUM, IONIZED DAVID 12/31/2019 4:13 AM CDT Results for this procedure are i n the results section . XR CHEST 1 VIEW Routine 12/31/2019 2:10 AM CDT R esults for this PORTABLE/BEDSIDE procedure a re in the results section . PREPARE PLATELETS STAT 12/30/2019 11:54 PM CDT Results for this procedure are i n the results section . PREPARE PLATELETS STAT 12/30/2019 11:54 PM CDT Results for this procedure are i n the results section . POCT-GLUCOSE METER Routine 12/30/2019 11:46 PM CDT Results for this procedure are i n the results section . POCT-GLUCOSE METER Routine 12/30/2019 9:32 PM CDT Results for this procedure are i n the results section . POCT-GLUCOSE METER Routine 12/30/2019 6:39 PM CDT Results for this procedure are i n the results section . TRANSFUSION SERVICE REPORT 12/30/2019 5:53 PM CDT - SCAN MAGNESIUM STAT 12/30/2019 4:57 PM CDT Resu lts for this procedure are i n the results section . BASIC METABOLIC PANEL (7) STAT 12/30/2019 4:57 PM CDT Results for this procedure are i n the results section . POCT-GLUCOSE METER Routine 12/30/2019 4:27 PM CDT Results for this procedure are i n the results section . POCT-GLUCOSE METER Routine 12/30/2019 2:32 PM CDT Results for this procedure are i n the results section . POCT-GLUCOSE METER Routine 12/30/2019 11:28 AM CDT Results for this procedure are i n the results section . POCT-GLUCOSE METER Routine 12/30/2019 8:47 AM CDT Results for this procedure are i n the results section . HGB/HCT (H&H) - STAT LAB STAT 12/30/2019 5:53 AM CDT Results for this procedure are i n the results section . GLUCOSE-STAT LAB STAT 12/30/2019 5:53 AM CDT Results for this procedure are i n the results section . POTASSIUM-STAT LAB STAT 12/30/2019 5:53 AM CDT Results for this procedure are i n the results section . SODIUM NA-STAT LAB STAT 12/30/2019 5:53 AM CDT Results for this procedure are i n the results section . RRL CRITICAL LABS STAT 12/30/2019 5:53 AM CDT Results for this (ABG,NA,K,H&H,GLUCOSE) proce dure are in the results section . BLOOD GAS, ARTERIAL Routine 12/30/2019 5:53 AM CDT Results for this procedure are i n the results section . POCT-GLUCOSE METER Routine 12/30/2019 5:06 AM CDT Results for this procedure are i n the results section . CBC (HEMOGRAM ONLY) Routine 12/30/2019 5:05 AM CDT Results for this procedure are i n the results section . LACTIC ACID, ARTERIAL STAT 12/30/2019 4:52 AM CDT Results for this procedure are i n the results section . LACTIC ACID, VENOUS Routine 12/30/2019 3:32 AM CDT Results for this procedure are i n the results section . BLOOD GAS, VENOUS STAT 12/30/2019 3:30 AM CDT Results for this procedure are i n the results section . PHOSPHORUS Routine 12/30/2019 3:30 AM CDT Resu lts for this procedure are i n the results section . MAGNESIUM Routine 12/30/2019 3:30 AM CDT Resu lts for this procedure are i n the results section . BASIC METABOLIC PANEL (7) Routine 12/30/2019 3:30 AM CDT Results for this procedure are i n the results section . OXYGEN SATURATION, MEASURED Routine 12/30/2019 3:09 AM CDT Results for this procedure are i n the results section . CALCIUM, IONIZED DAVID 12/30/2019 3:09 AM CDT Results for this procedure are i n the results section . POCT-GLUCOSE METER Routine 12/30/2019 2:15 AM CDT Results for this procedure are i n the results section . HGB/HCT (H&H) - STAT LAB STAT 12/30/2019 1:02 AM CDT Results for this procedure are i n the results section . GLUCOSE-STAT LAB STAT 12/30/2019 1:02 AM CDT Results for this procedure are i n the results section . POTASSIUM-STAT LAB STAT 12/30/2019 1:02 AM CDT Results for this procedure are i n the results section . SODIUM NA-STAT LAB STAT 12/30/2019 1:02 AM CDT Results for this procedure are i n the results section . RRL CRITICAL LABS STAT 12/30/2019 1:02 AM CDT Results for this (ABG,NA,K,H&H,GLUCOSE) proce dure are in the results section . BLOOD GAS, ARTERIAL STAT 12/30/2019 1:02 AM CDT Results for this procedure are i n the results section . XR CHEST 1 VIEW Routine 12/30/2019 12:46 AM CDT R esults for this PORTABLE/BEDSIDE procedure a re in the results section . POCT-GLUCOSE METER Routine 12/30/2019 12:01 AM CDT Results for this procedure are i n the results section . LACTIC ACID, ARTERIAL STAT 12/29/2019 11:59 PM CDT Results for this procedure are i n the results section . POCT-GLUCOSE METER Routine 12/29/2019 9:56 PM CDT Results for this procedure are i n the results section . LACTIC ACID, ARTERIAL STAT 12/29/2019 9:54 PM CDT Results for this procedure are i n the results section . POCT-GLUCOSE METER Routine 12/29/2019 7:50 PM CDT Results for this procedure are i n the results section . ECG 12-LEAD Routine 12/29/2019 6:34 PM CDT Procedure Note - Interface, External Ris In - 12/29/2019 6:37 PM CDT Ventricular Rate 83 BPM Atrial Rate 83 BPM P-R Interval 208 ms QRS Duration 88 ms Q-T Interval 374 ms QTC Calculation(Bazett) 439 ms P [place] 39 degrees R [place] 2 degrees T [place] 32 degrees Normal sinus rhythm Low voltage QRS Cannot rule out Inferior inf arct , age undetermined Cannot rule out Anteroseptal infarct , age undetermined Abnormal ECG ECG 12-LEAD STAT 12/29/2019 6:34 PM CDT Resu lts for this procedure are in the results section . ECG 12-LEAD Routine 12/29/2019 6:33 PM CDT Procedure Note - Interface, External Ris In - 12/29/2019 6:37 PM CDT Ventricular Rate 83 BPM Atrial Rate 83 BPM P-R Interval 206 ms QRS Duration 90 ms Q-T Interval 372 ms QTC Calculation(Bazett) 437 ms P [place] 33 degrees R [place] 1 degrees T [place] 31 degrees Normal sinus rhythm Low voltage QRS Cannot rule out Inferior inf arct , age undetermined Cannot rule out Anteroseptal infarct , age undetermined Abnormal ECG CALCIUM, IONIZED Routine 12/29/2019 6:15 Results for PM CDT this procedure are in the results section. BLOOD GAS, ARTERIAL STAT 12/29/2019 6:15 Resu lts for PM CDT this procedure are in the results section. CBC (HEMOGRAM ONLY) Routine 12/29/2019 6:15 Resu lts for PM CDT this procedure are in the results section. MAGNESIUM Routine 12/29/2019 6:15 Results for PM CDT this procedure are in the results section. BASIC METABOLIC PANEL Routine 12/29/2019 6:15 Re sults for (7) PM CDT this procedure are in the results section. LACTIC ACID, ARTERIAL STAT 12/29/2019 6:15 Re sults for PM CDT this procedure are in the results section. POCT-GLUCOSE METER Routine 12/29/2019 6:06 Resul ts for PM CDT this procedure are in the results section. TRANSFUSION SERVICE 12/29/2019 5:52 REPORT - SCAN PM CDT HGB/HCT (H&H) - STAT LAB STAT 12/29/2019 4:16 Results for PM CDT this procedure are in the results section. GLUCOSE-STAT LAB STAT 12/29/2019 4:16 Results for PM CDT this procedure are in the results section. POTASSIUM-STAT LAB STAT 12/29/2019 4:16 Resul ts for PM CDT this procedure are in the results section. SODIUM NA-STAT LAB STAT 12/29/2019 4:16 Resul ts for PM CDT this procedure are in the results section. BLOOD GAS, ARTERIAL STAT 12/29/2019 4:16 Resu lts for PM CDT this procedure are in the results section. POCT-GLUCOSE METER Routine 12/29/2019 4:15 Resul ts for PM CDT this procedure are in the results section. PREPARE RBC STAT 12/29/2019 3:34 Results for PM CDT this procedure are in the results section. HGB/HCT (H&H) - STAT LAB STAT 12/29/2019 3:05 Results for PM CDT this procedure are in the results section. GLUCOSE-STAT LAB STAT 12/29/2019 3:05 Results for PM CDT this procedure are in the results section. POTASSIUM-STAT LAB STAT 12/29/2019 3:05 Resul ts for PM CDT this procedure are in the results section. SODIUM NA-STAT LAB STAT 12/29/2019 3:05 Resul ts for PM CDT this procedure are in the results section. RRL CRITICAL LABS STAT 12/29/2019 3:05 Result s for (ABG,NA,K,H&H,GLUCOSE) PM CDT this procedure are in the results section. BLOOD GAS, ARTERIAL STAT 12/29/2019 3:05 Resu lts for PM CDT this procedure are in the results section. POCT-GLUCOSE METER Routine 12/29/2019 3:04 Resul ts for PM CDT this procedure are in the results section. POCT-GLUCOSE METER Routine 12/29/2019 2:12 Resul ts for PM CDT this procedure are in the results section. XR CHEST 1 VIEW STAT 12/29/2019 1:52 Results for PORTABLE/BEDSIDE PM CDT this proced ure are in the results section. (CELLAVISION MANUAL Routine 12/29/2019 1:40 Resu lts for DIFF) PM CDT this procedure are in the results section. CBC W/PLT COUNT & AUTO Routine 12/29/2019 1:40 R esults for DIFFERENTIAL PM CDT this procedure are in the results section. CBC W/PLT COUNT & AUTO STAT 12/29/2019 1:40 R esults for DIFFERENTIAL PM CDT this procedure are in the results section. LACTIC ACID, ARTERIAL STAT 12/29/2019 1:38 Re sults for PM CDT this procedure are in the results section. PHOSPHORUS STAT 12/29/2019 1:38 Results for PM CDT this procedure are in the results section. MAGNESIUM Routine 12/29/2019 1:38 Results for PM CDT this procedure are in the results section. LIPID PANEL Routine 12/29/2019 1:38 Results for PM CDT this procedure are in the results section. HEMOGLOBIN A1C Routine 12/29/2019 1:38 Results f or PM CDT this procedure are in the results section. COMPREHENSIVE METABOLIC Routine 12/29/2019 1:38 Results for PANEL PM CDT this procedure are in the results section. PLATELET AGGREGATION: AP Routine 12/29/2019 1:37 Re sults for FUNCTION SCREEN PM CDT this procedu re are in the results section. PT/APTT STAT 12/29/2019 1:36 Results for PM CDT this procedure are in the results section. FIBRINOGEN STAT 12/29/2019 1:36 Results for PM CDT this procedure are in the results section. PROTHROMBIN TIME/INR Routine 12/29/2019 1:36 Res ults for PM CDT this procedure are in the results section. APTT Routine 12/29/2019 1:36 Results for PM CDT this procedure are in the results section. THROMBOELASTOGRAPH (TEG) STAT 12/29/2019 12:43 Results for PM CDT this procedure are in the results section. BLOOD GAS, ARTERIAL STAT 12/29/2019 12:37 Resu lts for PM CDT this procedure are in the results section. OXYGEN SATURATION, STAT 12/29/2019 12:37 Resul ts for MEASURED PM CDT this procedure are in the results section. HGB/HCT (H&H) - STAT LAB STAT 12/29/2019 11:53 Results for AM CDT this procedure are in the results section. GLUCOSE-STAT LAB STAT 12/29/2019 11:53 Results for AM CDT this procedure are in the results section. POTASSIUM-STAT LAB STAT 12/29/2019 11:53 Resul ts for AM CDT this procedure are in the results section. SODIUM NA-STAT LAB STAT 12/29/2019 11:53 Resul ts for AM CDT this procedure are in the results section. BLOOD GAS, ARTERIAL STAT 12/29/2019 11:53 Resu lts for AM CDT this procedure are in the results section. CALCIUM, IONIZED STAT 12/29/2019 11:53 Results for AM CDT this procedure are in the results section. RRL CRITICAL LABS STAT 12/29/2019 11:53 Result s for (ABG,NA,K,H&H,GLUCOSE) AM CDT this procedure are in the results section. HGB/HCT (H&H) - STAT LAB STAT 12/29/2019 11:24 Results for AM CDT this procedure are in the results section. GLUCOSE-STAT LAB STAT 12/29/2019 11:24 Results for AM CDT this procedure are in the results section. POTASSIUM-STAT LAB STAT 12/29/2019 11:24 Resul ts for AM CDT this procedure are in the results section. SODIUM NA-STAT LAB STAT 12/29/2019 11:24 Resul ts for AM CDT this procedure are in the results section. BLOOD GAS, ARTERIAL STAT 12/29/2019 11:24 Resu lts for AM CDT this procedure are in the results section. CALCIUM, IONIZED STAT 12/29/2019 11:24 Results for AM CDT this procedure are in the results section. RRL CRITICAL LABS STAT 12/29/2019 11:24 Result s for (ABG,NA,K,H&H,GLUCOSE) AM CDT this procedure are in the results section. TRANSFUSE LEUKO-REDUCED Routine 12/29/2019 11:19 PLATELETS AM CDT TRANSFUSE LEUKO-REDUCED Routine 12/29/2019 11:19 PLATELETS AM CDT PLATELET COUNT STAT 12/29/2019 11:10 Results f or AM CDT this procedure are in the results section. THROMBOELASTOGRAPH (TEG) STAT 12/29/2019 11:10 Results for AM CDT this procedure are in the results section. FIBRINOGEN STAT 12/29/2019 11:10 Results for AM CDT this procedure are in the results section. APTT STAT 12/29/2019 11:10 Results for AM CDT this procedure are in the results section. PROTHROMBIN TIME/INR STAT 12/29/2019 11:10 Res ults for AM CDT this procedure are in the results section. CBC W/PLT COUNT & AUTO Routine 12/29/2019 11:10 R esults for DIFFERENTIAL AM CDT this procedure are in the results section. CBC W/PLT COUNT & AUTO STAT Add-on 12/29/2019 11:10 R esults for DIFFERENTIAL AM CDT this procedure are in the results section. POCT-ACT Routine 12/29/2019 11:05 Results for AM CDT this procedure are in the results section. TRANSFUSE LEUKO-REDUCED Routine 12/29/2019 10:52 PLATELETS AM CDT TRANSFUSE LEUKO-REDUCED Routine 12/29/2019 10:52 PLATELETS AM CDT HGB/HCT (H&H) - STAT LAB STAT 12/29/2019 10:48 Results for AM CDT this procedure are in the results section. GLUCOSE-STAT LAB STAT 12/29/2019 10:48 Results for AM CDT this procedure are in the results section. POTASSIUM-STAT LAB STAT 12/29/2019 10:48 Resul ts for AM CDT this procedure are in the results section. SODIUM NA-STAT LAB STAT 12/29/2019 10:48 Resul ts for AM CDT this procedure are in the results section. BLOOD GAS, ARTERIAL STAT 12/29/2019 10:48 Resu lts for AM CDT this procedure are in the results section. CALCIUM, IONIZED STAT 12/29/2019 10:48 Results for AM CDT this procedure are in the results section. RRL CRITICAL LABS STAT 12/29/2019 10:48 Result s for (ABG,NA,K,H&H,GLUCOSE) AM CDT this procedure are in the results section. POCT-ACT Routine 12/29/2019 10:17 Results for AM CDT this procedure are in the results section. HGB/HCT (H&H) - STAT LAB STAT 12/29/2019 10:16 Results for AM CDT this procedure are in the results section. GLUCOSE-STAT LAB STAT 12/29/2019 10:16 Results for AM CDT this procedure are in the results section. POTASSIUM-STAT LAB STAT 12/29/2019 10:16 Resul ts for AM CDT this procedure are in the results section. SODIUM NA-STAT LAB STAT 12/29/2019 10:16 Resul ts for AM CDT this procedure are in the results section. BLOOD GAS, ARTERIAL STAT 12/29/2019 10:16 Resu lts for AM CDT this procedure are in the results section. RRL CRITICAL LABS STAT 12/29/2019 10:16 Result s for (ABG,NA,K,H&H,GLUCOSE) AM CDT this procedure are in the results section. POCT-ACT Routine 12/29/2019 9:46 Results for AM CDT this procedure are in the results section. HGB/HCT (H&H) - STAT LAB STAT 12/29/2019 9:44 Results for AM CDT this procedure are in the results section. GLUCOSE-STAT LAB STAT 12/29/2019 9:44 Results for AM CDT this procedure are in the results section. POTASSIUM-STAT LAB STAT 12/29/2019 9:44 Resul ts for AM CDT this procedure are in the results section. SODIUM NA-STAT LAB STAT 12/29/2019 9:44 Resul ts for AM CDT this procedure are in the results section. BLOOD GAS, ARTERIAL STAT 12/29/2019 9:44 Resu lts for AM CDT this procedure are in the results section. RRL CRITICAL LABS STAT 12/29/2019 9:44 Result s for (ABG,NA,K,H&H,GLUCOSE) AM CDT this procedure are in the results section. POCT-ACT Routine 12/29/2019 9:16 Results for AM CDT this procedure are in the results section. POCT-ACT Routine 12/29/2019 8:30 Results for AM CDT this procedure are in the results section. ANESTHESIA MARY Routine 12/29/2019 8:19 Results f or AM CDT this procedure are in the results section. HGB/HCT (H&H) - STAT LAB STAT 12/29/2019 8:09 Results for AM CDT this procedure are in the results section. GLUCOSE-STAT LAB STAT 12/29/2019 8:09 Results for AM CDT this procedure are in the results section. POTASSIUM-STAT LAB STAT 12/29/2019 8:09 Resul ts for AM CDT this procedure are in the results section. SODIUM NA-STAT LAB STAT 12/29/2019 8:09 Resul ts for AM CDT this procedure are in the results section. BLOOD GAS, ARTERIAL STAT 12/29/2019 8:09 Resu lts for AM CDT this procedure are in the results section. CALCIUM, IONIZED STAT 12/29/2019 8:09 Results for AM CDT this procedure are in the results section. RRL CRITICAL LABS STAT 12/29/2019 8:09 Result s for (ABG,NA,K,H&H,GLUCOSE) AM CDT this procedure are in the results section. LIGATION,ATRIAL 12/29/2019 7:10 Coronary artery APPENDAGE AM CDT disease with angina pectoris, unspecified vessel or lesion type, unspecified whether [place] or transplanted heart ([facility]) Case Notes 2 HRS ENDOSCOPIC HARVEST,VEIN 12/29/2019 7:10 AM CDT [place] ry artery disease with angina pectoris, unspecified vessel or lesion type, unspecified whether [place] o r transplanted heart ([facility]) Case Notes 2 HRS BYPASS,AORTO CORONARY CHRISTIANO/SVG 12/29/2019 7:10 A M CDT Coronary artery disease with angina pectoris, unspecified vessel or lesion type, unspecified whether [place] ira or transplanted heart ([facility]) Case Notes 2 HRS CBC (HEMOGRAM ONLY) Routine 12/29/2019 5:42 AM CDT Results for this procedure are i n the results section . XR CHEST 1 VIEW Routine 12/29/2019 3:09 AM CDT R esults for this PORTABLE/BEDSIDE procedure a re in the results section . POCT-ACT Routine 12/28/2019 10:53 PM CDT Resu lts for this procedure are i n the results section . VEIN MAPPING LEGS Routine 12/28/2019 10:42 PM CDT Results for this BILATERAL procedure are i n the results section . CAROTID DOPPLER BILATERAL DAVID 12/28/2019 10:20 PM CDT Results for this procedure are i n the results section . ABORH, MANUAL STAT 12/28/2019 7:32 PM CDT Res ults for this procedure are i n the results section . TYPE AND SCREEN, Routine 12/28/2019 7:13 PM CDT Results for this AUTOMATED procedure are i n the results section . APTT Routine 12/28/2019 7:13 PM CDT Resu lts for this procedure are i n the results section . PLATELET AGGREGATION: AP Routine 12/28/2019 7:13 PM CDT Results for this FUNCTION SCREEN procedure ar e in the results section . CBC (HEMOGRAM ONLY) Routine 12/28/2019 7:13 PM CDT Results for this procedure are i n the results section . MAGNESIUM Routine 12/28/2019 7:13 PM CDT Resu lts for this procedure are i n the results section . LIPID PANEL Routine 12/28/2019 7:13 PM CDT Resu lts for this procedure are i n the results section . PT/APTT Routine 12/28/2019 7:13 PM CDT Resu lts for this procedure are i n the results section . HEMOGLOBIN A1C AP Routine 12/28/2019 7:13 PM CDT Re sults for this procedure are i n the results section . BASIC METABOLIC PANEL (7) Routine 12/28/2019 7:13 PM CDT Results for this procedure are i n the results section . TROPONIN I Routine 12/28/2019 7:13 PM CDT Resu lts for this procedure are i n the results section . ECG 12-LEAD Routine 12/28/2019 6:50 PM CDT Procedure Note - Interface, External Ris In - 12/28/2019 6:51 PM CDT Ventricular Rate 97 BPM Atrial Rate 97 BPM P-R Interval 200 ms QRS Duration 94 ms Q-T Interval 358 ms QTC Calculation(Bazett) 454 ms P [place] 44 degrees R [place] 6 degrees T [place] 9 degrees Normal sinus rhythm Possible Inferior infarct , age undetermined Anterior infarct , age undet ermined Abnormal ECG ECG 12-LEAD Routine 12/28/2019 6:50 PM CDT Resu lts for this procedure are in the resu lts section. XR CHEST 1 VIEW Routine 12/28/2019 6:37 PM CDT R esults for this procedure PORTABLE/BEDSIDE are in the results section. SARS-COV2/RT-PCR ([facility] DAVID 12/28/2019 6:32 PM CDT Results for this procedure REF LABS) are in the resu lts section. after 08/11/2019 Results RHYTHM STRIP - SCAN (01/18/2020 3:40 PM CDT)Only the most recent of2 results within the time period is included. Narrative Performed At This result has an attachment that is no t available. VASCULAR DIAGRAM -SCAN (01/09/2020 1:50 PM CDT) Narrative Performed At This result has an attachment that is no t available. POC-Glucose meter (01/06/2020 11:06 AM CDT)Only the most recent of41 results within the time period is included. POC-Glucose Meter 293 (H)Comment: 70 - 110 mg/dL [facility] : TESTED AT [address], [facility]: Public Health Technician/Technic denise ID = [id number] for ROSALVA ANNYTRACY Specimen Blood Performing Organization Address City/[facility] Cent[facility] Phone Number [address] [address] [place] Calcium, Ionized (01/06/2020 5:22 AM CDT)Only the most recent of14 results within the time period is included. Pathologist Sig nature Calcium, Ion 1.07 (L) 1.12 - 1.27 mmol/L [facility] pH, Blood 7.46 [facility] Specimen Blood Performing Organization Address City/[facility]/[place] [facility] [facility] Cent[facility]ode Phone Number [address] [address] C[place] CBC (Hemogram only) (01/06/2020 5:22 AM CDT)Only the most recent of12 results within the time period is included. Pathologist Sig nature WBC 11.4 (H) 3.5 - 10.5 K/L [facility] RBC 2.94 (L) 4.63 - 6.08 M/L [facility] Hemoglobin 7.8 (L) 13.7 - 17.5 GM/DL [facility] Hematocrit 26.3 (L) 40.1 - 51.0 % [facility] MCV 89.5 79.0 - 92.2 fL [facility] MCH 26.5 25.7 - 32.2 pg [facility] MCHC 29.7 (L) 32.3 - 36.5 GM/DL [facility] RDW 14.8 (H) 11.6 - 14.4 % [facility] Platelets 276 150 - 450 K/CU MM [facility] MPV 8.7 (L) 9.4 - 12.4 fL [facility] nRBC 2 (H) 0 - 0 /100 WBC [facility] Specimen Blood Performing Organization Address City/[facility] [facility] Cent[facility]ode Phone Number [address] [address] [place] Phosphorus (01/06/2020 5:21 AM CDT)Only the most recent of9 resultswithin the time period is included. Pathologist Sig nature Phosphorus 4.0Comment: 2.3 - 4.7 mg/dL [facility] hemolyzed [place] Specimen Blood Narrative Performed At Public Health Technician ID - MALIK W [facility] Performing Organization Address [facility] Phone Number [address] [address] [place] Magnesium (01/06/2020 5:21 AM CDT)Only the most recent of16 resultswithin the time period is included. Pathologist Sig nature Magnesium 2.0Comment: Specimen 1.6 - 2.6 mg/dL [facility] hemolyzed [facility] Specimen Blood Narrative Performed At Public Health Technician ID - [facility] Performing Organization Address [facility] Phone Number [address] [address] [place] Basic Metabolic Panel (01/05/2020 4:00 AM CDT)Only the most recent of12 results within the time period is included. Sodium 136 136 - 145 meq/L [facility] Potassium 3.8 3.5 - 5.1 meq/L [facility] Chloride 99 98 - 107 meq/L [facility] CO2 30 (H) 22 - 29 meq/L [facility] BUN 24 (H) 7 - 21 mg/dL [facility] Creatinine 1.06 0.57 - 1.25 [facility] mg/dL [facility] Glucose 315 (H) 70 - 105 mg/dL [facility] Calcium 8.4 8.4 - 10.2 [facility] mg/dL [facility] EGFR 70Comment: ESTIMATED mL/min/1.73 sq [facility] GFR IS NOT m [facility] [place] CREATININE CLEARANCE IN PREDICTING GLOMERULAR FILTRATION RATE. ESTIMATED GFR IS NOT APPLICABLE FOR DIALYSIS PATIENTS. Specimen Blood Narrative Performed At Public Health Technician ID - SANIA M [facility] Performing Organization Address City/State/Zipcode Phone Number [facility] [address] [place] [address] CENTER Limited 2D Echocardiogram (01/04/2020 11:38 AM CDT) Pathologist Sig nature Ejection Fraction [facility] Specimen Narrative Performed At Transthoracic Echocardiography Report (T TE) [facility] Demographics Patient Name KUMAR FORMAN Date of Study 01/04/2020 Gender Male Visit Number [id number] Race Room Number 1023 Number Date of 1955 Referring Physician Torrey Ponce Age 64 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 Clinical History HGB 7.6 HCT 24.7 % PAF, OBESITY, HTN, HLD, CAD, CABG X2 (12/29/19), ANGIO (12/28/19), WALT LIGATION Height: 67 inches Weight: 140.61 kg (310 lbs) BSA: 2.44 m^2 BMI: 48.55 kg/m^2 HR: 89 bpm BP: 135/67 mmHg Summary TECHNICALLY DIFFICULT STUDY. 2D ONLY ST UDY HGB 7.6 HCT 24.7 % Parasternal long axis measurements not possible. Difficult to assess segmental wall motion; overall LV systolic function appears normal ( > 55%) based on available views. Global RV systolic function appears nor mal . No significant pericardial effusion is visualized. Signature Findings Left Ventricle Parasternal long axis measurements not possible. Difficult to assess segmental wall motion; overall LV systolic function appears normal ( > 55%) based on available views. Left Atrium LA is incompletely visualized, size based on qualitative assessment. LA size appears normal . Right Ventricle RV pacing wire is visualized . RV is not well visualized. Global RV systolic function appears normal . Right Atrium The RA is not well visualized. Aortic Valve The aortic valve is not well visualized. Mitral Valve MV is not well visualized. Tricuspid Valve The tricuspid valve is not well visualized. Pulmonic Valve PV is not well visualized. Pericardium No significant pericardial effusion is visualized. IVC/SVC/PA/PV/Pleural The inferior vena cava is not well visualized. 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 Clinical History HGB 7.6 HCT 24.7 % PAF, OBESITY, HTN, HLD, CAD, CABG X2 (), ANGIO (12/28/19), WALT LIGATION Height: 67 inches Weight: 140.61 kg (310 lbs) BSA: 2.44 m^2 BMI: 48.55 kg/m^2 HR: 89 bpm BP: 135/67 mmHg Summary TECHNICALLY DIFFICULT STUDY. 2D ONLY ST UDY HGB 7.6 HCT 24.7 % Parasternal long axis measurements not possible. Difficult to assess segmental wall motion; overall LV systo lic function appears normal ( > 55%) based on available views. Global RV systolic function appears nor mal . No significant pericardial effusion is visualized. Signature Findings Left Ventricle Parasternal long axis measurements not possible. Difficult to ass ess segmental wall motion; overall LV systolic func tion appears normal ( > 55%) based on available vie ws. Left Atrium LA is incomplete ly visualized, size based on qualitative asse ssment. LA size appears normal . Right Ventricle RV pacing wire i s visualized . RV is not well v isualized. Global RV systol ic function appears normal . Right Atrium The RA is not we ll visualized. Aortic Valve The aortic valve is not well visualized. Mitral Valve MV is not well v isualized. Tricuspid Valve The tricuspid va lve is not well visualized. Pulmonic Valve PV is not well v isualized. Pericardium No significant p ericardial effusion is visualized. IVC/SVC/PA/PV/Pleural The inferior kem a cava is not well visualized. Performing Organization Address City/[facility]/Zipcode Phone Number [facility] XR chest 1 view portable / bedside (01/04/2020 3:46 AM CDT)Only the most recent of9 resultswithin the time period is included. Specimen Narrative Performed At FINAL REPORT GE RIS CLINICAL INDICATION: Postop Comparison: 01/03/2020 The cardiomediastinal contours are stabl e. Central pulmonary vascular congestion an d bilateral parenchymal opacities are partially improved, sugges ting improving pulmonary edema. There is no pneumothorax or significant pleural collection. A right IJ CVC has been removed. Signed: Jostin Pop MD Report Verified Date/Time: 01/04/2020 05:36:24 Procedure Note Interface, External Ris In - 01/04/2020 5:38 AM CDT FINAL REPORT CLINICAL INDICATION: Postop Comparison: 01/03/2020 The cardiomediastinal contours are stabl e. Central pulmonary vascular congestion an d bilateral parenchymal opacities are partially improved, sugges ting improving pulmonary edema. There is no pneumothorax or significant pleural collection. A right IJ CVC has been removed. Signed: Jostin Pop MD Report Verified Date/Time: 01/04/2020 0 5:36:24 Performing Organization Address City/[facility] [facility] Phone Number RIS Lipase (01/03/2020 3:01 AM CDT)Only the most recent of2 resultswithin the time period is included. Pathologist Sig nature Lipase 454 (H) 8 - 78 U/L [facility] Specimen Blood Narrative Performed At Public Health Technician ID - KOBE [facility] Performing Organization Address City/[facility]/Zipcode Phone Number [address], [place] [phone] CENTER Amylase (01/03/2020 3:01 AM CDT)Only the most recent of2 resultswithin the time period is included. Pathologist Sig nature Amylase 183 (H) 25 - 125 U/L [facility] Specimen Blood Narrative Performed At Public Health Technician ID - [facility] Performing Organization Address City/[facility] Cent[facility]ode Phone Number [address] [address] [place] Hepatic function panel (01/03/2020 3:01 AM CDT)Only the most recent of2 results within the time period is included. Pathologist Sig nature Protein, Total 5.7 (L) 6.0 - 8.3 gm/dL [facility] Albumin 2.8 (L) 3.5 - 5.0 g/dL [facility] Total Bilirubin 0.7 0.2 - 1.2 mg/dL [facility] Bilirubin, Direct 0.4 0.1 - 0.5 mg/dL [facility] Alkaline Phosphatase 63 40 - 150 U/L [facility] AST 35 (H) 5 - 34 U/L [facility] ALT 34 6 - 55 U/L [facility] Specimen Blood Narrative Performed At Public Health Technician ID - [facility] Performing Organization Address City/[facility] Cent[facility] Phone Number [address] [address] CENTER Potassium (01/02/2020 5:47 PM CDT)Only the most recent of4 resultswithin the time period is included. Pathologist Sig nature Potassium 4.0Comment: Specimen 3.5 - 5.1 meq/L [facility] slightly hemolyzed [facility] Specimen Blood Narrative Performed At Public Health Technician ID - NTP [facility] Performing Organization Address City/State/Zipcode Phone Number TI [facility] [address] [place] [address] CENTER US abdomen complete (01/02/2020 5:08 PM CDT) Specimen Narrative Performed At FINAL REPORT [employer] [facility] TECHNIQUE: Grayscale ultrasound of the a delia. INDICATION: abdominal pain, increased am ylase and lipase. COMPARISON: None. FINDINGS: MIDLINE VASCULATURE: The aorta and infer ior vena cava were not well evaluated due to the shadowing from the fatty infiltration of the liver. LIVER: The liver is hyperechoic. Smooth liver contour. No focal lesions. The deep liver is suboptimally evaluated due to the shadowing from the fatty infiltration. T he main portal vein is patent and measures 0.7 cm in diameter. BILIARY: Gallbladder: Prior cholecystectomy. The common bile duct was unable to be vi sualized. PANCREAS: Not visualized due to overlyin g bowel gas. SPLEEN: The spleen is enlarged at 14 cm in length. PERITONEUM: No free fluid. KIDNEYS: Normal in size bilaterally. No hydronephrosis. No sonographically evident solid mass lesio n. There is likely a prominent renal. In the right interpolar kidney which measures 1 cm. Alternatively, this may be a small simpl e cyst. Additional, similar-appearing region measures 1 cm i n the left upper pole. No routine follow-up imaging is recommended . Small left pleural effusion. IMPRESSION: 1.Prior cholecystomy. The common bile du ct was unable to be visualized. 2.The pancreas was not visualized due to overlying bowel gas. 3.Diffuse fatty infiltration of the live r with mild splenomegaly. 4.Small left pleural effusion. Signed: Yoni Hooper MD Report Verified Date/Time: 01/02/2020 17:44:05 Reading Location: [facility] B1 C013Y CT Body R eading Room Procedure Note Interface, External Ris In - 01/02/2020 5:46 PM CDT FINAL REPORT TECHNIQUE: Grayscale ultrasound of the wen lin. INDICATION: abdominal pain, increased am ylase and lipase. COMPARISON: None. FINDINGS: MIDLINE VASCULATURE: The aorta and infer ior vena cava were not well evaluated due to the shadowing from the fatty infiltration of the liver. LIVER: The liver is hyperechoic. Smooth liver contour. No focal lesions. The deep liver is suboptimally evaluated due to the shadowing from the fatty infiltration. T he main portal vein is patent and measures 0.7 cm in diameter. BILIARY: Gallbladder: Prior cholecystectomy. The common bile duct was unable to be vi sualized. PANCREAS: Not visualized due to overlyin g bowel gas. SPLEEN: The spleen is enlarged at 14 cm in length. PERITONEUM: No free fluid. KIDNEYS: Normal in size bilaterally. No hydronephrosis. No sonographically evident solid mass lesio n. There is likely a prominent renal. In the right interpolar kidney which measures 1 cm. Alternatively, this may be a small simpl e cyst. Additional, similar-appearing region measures 1 cm i n the left upper pole. No routine follow-up imaging is recommended . Small left pleural effusion. IMPRESSION: 1.Prior cholecystomy. The common bile du ct was unable to be visualized. 2.The pancreas was not visualized due to overlying bowel gas. 3.Diffuse fatty infiltration of the live r with mild splenomegaly. 4.Small left pleural effusion. Signed: Yoni Hooper MD Report Verified Date/Time: 01/02/2020 1 7:44:05 Reading Location: [facility] B1 C013Y CT Body R eading Room Performing Organization Address City/State/Zipcode Phone Number GE RIS Sputum Culture + Gram Stain (01/02/2020 1:21 PM CDT)Only the most recent of2 resultswithin the time period is included. Result 2+ Normal [facility] respiratory dexter [facility] CENTER Gram Stain Result <1+ WBCs [facility] Gram Stain Result 5-[address] [facility] cells [facility] Gram Stain Result 1+ gram positive [facility] cocci in chains, [facility] MEDICAL pairs and clusters CENTER Gram Stain Result 1+ gram variable [facility] rods [facility] Specimen Sputum - Expectorated Performing Organization Address City/State/Zipcode Phone Number [facility] [phone] [place] [address] [place] Procalcitonin (01/02/2020 1:05 PM CDT)Only the most recent of2 resultswithin the time period is included. Pathologist Sig nature Procalcitonin 0.26 (H) <0.05 ng/mL [facility] Specimen Blood Narrative Performed At SEPSIS RISK (ng/mL) [facility] Low: 0.05-0.50 Intermediate: 0.51-2.00 High: >=2.01 Performing Organization Address [facility] [place] [address] [place] D-dimer (01/02/2020 1:05 PM CDT) Pathologist Sig nature D-Dimer, Quant 2.57 (H) <0.50 MG/L FEU [facility] Specimen Blood Narrative Performed At Intended Use: The D-Dimer Assay can be used [facility] to aid in the diagnosis of Deep Vein Thrombosis (DVT) and Pulmonary Embolism Disease (PED). In patients with low pre-test probability, various studies concerning STA Liatest D-dimer test have reported that with a cutoff value of 0.50 MG/L FEU, the Negative Predictive Value (NPV) regarding the exclusion of thrombosis is within 95-100% range. Performing Organization Address [facility] [place] [address] [place] Urinalysis w/Microscopic + Reflex to Culture (01/02/2020 11:05 AM CDT) Color, UA Yellow [facility] Clarity, UA Clear [facility] Specific [place], 1.023 1.001 - 1.035 [facility] pH, UA 5.5 5.0 - 8.0 [facility] Protein, UA 20 mg/dL (A) Negative [facility] Glucose, UA >1000 mg/dL (A) Negative [facility] Ketones, UA Negative Negative [facility] Bilirubin, UA Negative Negative [facility] Blood, UA Trace (A) Negative [facility] Nitrite, UA Negative Negative [facility] Leukocytes, UA Negative Negative [facility] Urobilinogen, UA 0.2 0.2 - 1.0 mg/dL [facility] RBC, UA 8 /HPF [facility] WBC, UA 6 /HPF [facility] Mucus Rare [facility] Squam Epithel, UA 4 /HPF [facility] Specimen Source [facility] Specimen Urine Narrative Performed At Public Health Technician ID - [auto] [facility] Public Health Technician ID - tech Performing Organization Address City/State/Zipcode Phone Number [facility] [address] [place] [address] [place] Oxygen saturation, measured (01/02/2020 3:25 AM CDT)Only the most recent of5 resultswithin the time period is included. Pathologist Sig nature O2 Saturation (Measured) 64.2 % [facility] Specimen Blood Performing Organization Address City/[facility]/Zipcode Phone Number [facility] [address] [place] [address] CENTER 2D Echo W/Doppler(CW/PW/Color) (01/01/2020 12:24 PM CDT) Pathologist Sig nature Ejection Fraction [facility] ECHO [facility] Specimen Narrative Performed At Transthoracic Echocardiography Report (T TE) [facility] Demographics Patient Name KUMAR FORMAN Date of Study 01/01/2020 Gender Male Visit Number [id number] Race Room Number C825 Number Date of 1955 Referring Physician Mesfin Johnson Age 64 year(s) 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 Clinical History HGB 7.5 HCT 23.4 % BYPASS AORTO CORONARY CHRISTIANO/SVG Contrast Medium: Definity. Amount - 2 ml Height: 67 inches Weight: 140.61 kg (310 lbs) BSA: 2.44 m^2 BMI: 48.55 kg/m^2 HR: 121 bpm BP: 130/57 mmHg Summary Technically limited exam. The left ventricle is chamber size (by PSLAX dimension) is normal (male - LVIDd 4.2-5.8cm) . Normal LV wall thickness. Difficult to assess segmental wall motion; overall LV systolic function appears normal based on available views . LV endocardium is partially visualized with IV ultrasound enhancing agent. Estimated LVEF by qualitative assessment is normal (55-60%) . No significant valve disease detected. Previous Study No prior exam available for comparison. Signature Findings Technical Quality: Technically difficult exam. Rhythm/BP Tachycardia during the exam. Left Ventricle The left ventricle is chamber size (by PSLAX dimension) is normal (male - LVIDd 4.2-5.8cm) . Normal LV wall thickness. Difficult to assess segmental wall motion; overall LV systolic function appears normal based on available views. LV endocardium is partially visualized with IV ultrasound enhancing agent. Estimated LVEF by qualitative assessment is normal (55- 60%) . Left Atrium LA size is normal (16-34 ml/m2) . Right Ventricle RV is partially visualized. Right Atrium The RA is not well visualized. Aortic Valve AoV is not well visualized. Mitral Valve MV is partially visualized. Mild mitral annular calcification. Tricuspid Valve The tricuspid valve is not well visualized. Unable to estimate peak systolic PA pressure; inadequate TR velocity signal. Pulmonic Valve PV is not well visualized; function appears normal by Doppler visualized. Aorta Aortic root size (SInus of Valsalva diameter) is norm al . Pericardium No significant pericardial effusion is visualized. IVC/SVC/PA/PV/Pleural The estimated RA pressure by IVC dynamics indeterminate . The inferior vena cava is not visualized. Chambers/Structures Left Atrium LA Volume: 58.5 ml LA Area: 22.08 cm^2 LA Vol. Index: 24 ml/m^2 Left Ventricle LVIDd: 4.66 cm LV Septum Diastolic: 0.92 cm LV PW Diastolic: 1 cm LVOT Diameter: 2.08 cm Right Ventricle RVOT VTI: 10.95 cm Aorta Ao Root S of Sheila.: 3.48 cm Doppler/Quantitative Measurements Aortic Valve Peak Velocity: 1.01 m/s Mean Velocity: 0.64 m/s Peak Gradient: 4.11 mmHg Mean Gradient: 2.04 mmHg AV Area (continuity): 2.47 cm^2 AV VTI: 16.44 cm AV DVI: 0.73 LVOT Peak Velocity: 0.74 m/s Peak Gradient: 2.17 mmHg Mean Velocity: 0.44 m/s Mean Gradient: 1.02 mmHg LVOT Diameter: 2.08 cm LVOT VTI: 11.96 cm LVOT Area: 3.4 cm^2 LVOT SV:40.62 ml LVOT CO: 4.91 l/min LVOT CI: 2.01 l/min/m^2 Procedure Note Interface, External Ris In - 01/01/2020 5:09 PM CDT Transthoracic Echocardiography Report (TTE) Demographics Patient Name KUMAR FORMAN Date of Study 01/01/2020 Gender Male Visit Number [id number] Race Room [place] [address] Number Date of 1955 Referrin maribel Physician Mesfin Johnson Age 64 year(s) Sonograp her Abed Jewel 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 Clinical History HGB 7.5 HCT 23.4 % BYPASS AORTO CORONARY CHRISTIANO/SVG Contrast Medium: Definity. Amount - 2 ml Height: 67 inches Weight: 140.61 kg (310 lbs) BSA: 2.44 m^2 BMI: 48.55 kg/m^2 HR: 121 bpm BP: 130/57 mmHg Summary Technically limited exam. The left ventricle is chamber size (by PSLAX dimension) is normal (male - LVIDd 4.2-5.8cm) . Normal LV wall thickness. Difficult to assess segmental wall adrien on; overall LV systolic function appears normal based on available views . LV endocardium is partially visualized with IV ultrasound enhancing agent. Estimated LVEF by qualitative assessmen t is normal (55-60%) . No significant valve disease detected. Previous Study No prior exam available for comparison. Signature Findings Technical Quality: Technically difficult exam. Rhythm/BP Tachycardia duri ng the exam. Left Ventricle The left ventric le is chamber size (by PSLAX dimension) is no rmal (male - LVIDd 4.2-5.8cm) . Normal LV wall t hickness. Difficult to ass ess segmental wall motion; overall LV systolic func tion appears normal based on available views. LV endocardium i s partially visualized with IV ultrasound enhan cing agent. Estimated LVEF b y qualitative assessment is normal (55-60%) . Left Atrium LA size is marilu l (16-34 ml/m2) . Right Ventricle RV is partially visualized. Right Atrium The RA is not we ll visualized. Aortic Valve AoV is not well visualized. Mitral Valve MV is partially visualized. Mild mitral kiran lar calcification. Tricuspid Valve The tricuspid va lve is not well visualized. Unable to estima te peak systolic PA pressure; inadequate TR ve locity signal. Pulmonic Valve PV is not well v isualized; function appears normal by Doppler visua lized. Aorta Aortic root size (SInus of Valsalva diameter) is normal . Pericardium No significant p ericardial effusion is visualized. IVC/SVC/PA/PV/Pleural The estimated RA pressure by IVC dynamics indeterminate . The inferior kem a cava is not visualized. Chambers/Structures Left Atrium LA Volume: 58.5 ml LA Area: 22.08 cm^2 LA Vol. Index: 24 ml/m^2 Left Ventricle LVIDd: 4.66 cm LV Septum Diastolic: 0.92 cm LV PW Diastolic: 1 cm LVOT Diameter: 2.08 cm Right Ventricle RVOT VTI: 10.95 cm Aorta Ao Root S of Sheila.: 3.48 cm Doppler/Quantitative Measurements Aortic Valve Peak Velocity: 1.01 m/s Mean Velocity: 0.64 m/s Peak Gradient: 4.11 mmHg Mean Gradient: 2.04 mmHg AV Area (continuity): 2.47 cm^2 AV VTI: 16.44 cm AV DVI: 0.73 LVOT Peak Velocity: 0.74 m/s Pea k Gradient: 2.17 mmHg Mean Velocity: 0.44 m/s Natalia n Gradient: 1.02 mmHg LVOT Diameter: 2.08 cm LVO T VTI: 11.96 cm LVOT Area: 3.4 cm^2 LVO T SV:40.62 ml LVOT CO: 4.91 l/min LVO T CI: 2.01 l/min/m^2 Performing Organization Address City/State/Zipcode Phone Number [facility] TRANSFUSION SERVICE REPORT - SCAN (12/31/2019 5:52 PM CDT)Only the most recent of3 resultswithin the time period is included. Narrative Performed At This result has an attachment that is no t available. Lactic acid, venous (12/31/2019 11:35 AM CDT)Only the most recent of2 results within the time period is included. Pathologist Sig nature Lactate, Venous 1.90 0.50 - 2.20 mmol/L [facility] Specimen Blood Narrative Performed At Public Health Technician ID - NTP [facility] CENTER Performing Organization Address City/State/Zipcode Phone Number [facility] [address] [place] [address] CENTER ECG 12 lead (12/31/2019 5:03 AM CDT)Only the most recent of4 resultswithin the time period is included. Specimen Narrative Performed At Ventricular Rate 136 BPM GE MUSE Atrial Rate 96 BPM QRS Duration 74 ms Q-T Interval 342 ms QTC Calculation(Bazett) 514 ms R [place] 26 degrees T [place] 13 degrees Atrial fibrillation with rapid ventricul ar response Anteroapical infarct (cited on or befo re 28-DEC-2019) Diffuse mild ST elevation with nonspecific T changes c onsider resolving phase of pericardits Abnormal ECG When compared with ECG of 31-DEC-2019 05 :03, No significant changes Confirmed by MD LEÓN, ERIC ([id number]) on 01/02/2020 5:07:54 PM Procedure Note Interface, External Ris In - 01/02/2020 5:08 PM CDT Ventricular Rate 136 BPM Atrial Rate 96 BPM QRS Duration 74 ms Q-T Interval 342 ms QTC Calculation(Bazett) 514 ms R [place] 26 degrees T [place] 13 degrees Atrial fibrillation with rapid ventricul ar response Anteroapical infarct (cited on or befor e 28-DEC-2019) Diffuse mild ST elevation with nonspecif ic T changes consider resolving phase of pericardits Abnormal ECG When compared with ECG of 31-DEC-2019 05 :03, No significant changes Confirmed by MD TRAORE YOCHAI ([id number]) on 01/02/2020 5:07:54 PM Performing Organization Address City/[facility]/[place] [facility] [facility] Centercode Phone Number GE MUSE Blood gas, arterial (12/31/2019 4:19 AM CDT)Only the most recent of13 results within the time period is included. Pathologist Sig nature pH, Arterial 7.47 (H) 7.35 - 7.45 [facility] pCO2, Arterial 38 35 - 45 mmHg [facility] pO2, Arterial 133 (H) 80 - 90 mmHg [facility] O2 Sat, Arterial 98.8 (H) 96.0 - 97.0 % [facility] HCO3, Arterial 27 21 - 29 mmol/L [facility] Base Excess, Arterial 3.3 (H) -2.0 - 3.0 [facility] mmol/L [facility] Patient Temperature 37.5 C [facility] FIO2 40.0 % [facility] Specimen Blood, Arterial Performing Organization Address City/[facility]/[place] [facility] Centercode Phone Number [address] [phone] CENTER Prepare PLT (12/30/2019 11:54 PM CDT)Only the most recent of2 resultswithin the time period is included. Pathologist Sig nature Unit ABO O Neg SAFETRACE TX UNIT NUMBER [id number] SAFETRACE TX Status TX_TIMEINCHART SAFETRACE TX Blood Bank Product PLATELETS SAFETRACE TX PRODUCT CODE [id number] SAFETRACE TX Unit ABO O Neg SAFETRACE TX UNIT NUMBER [id number] SAFETRACE TX Status TX_TIMEINCHART SAFETRACE TX Blood Bank Product PLATELETS SAFETRACE TX PRODUCT CODE [id number] SAFETRACE TX Performing Organization Address City/[facility] Centercoin Phone Number SAFETRACE [place] Potassium-Stat Lab (12/30/2019 5:53 AM CDT)Only the most recent of10 results within the time period is included. Pathologist Sig nature Potassium 4.2 3.6 - 5.5 meq/L [facility] Specimen Blood, Arterial Performing Organization Address City/[facility]/[place] [facility] Centercode Phone Number [address] [address] CENTER Sodium Na-Stat Lab (12/30/2019 5:53 AM CDT)Only the most recent of10 results within the time period is included. Pathologist Sig nature Sodium 136 136 - 145 meq/L [facility] Specimen Blood, Arterial Performing Organization Address [facility]/[place] [facility] Centercode Phone Number [address] [address] [place] Glucose-Stat Lab (12/30/2019 5:53 AM CDT)Only the most recent of10 results within the time period is included. Pathologist Sig nature Glucose 201 (H) 70 - 110 mg/dL [facility] Specimen Blood, Arterial Performing Organization Address [facility]/[place] [facility] [facility] Centercode Phone Number [address] [address] [place] HGB/HCT (H&H)-Stat Lab (12/30/2019 5:53 AM CDT)Only the most recent of10 resultswithin the time period is included. Pathologist Sig nature Hemoglobin 8.2 (L) 13.0 - 16.8 g/dL [facility] Hematocrit 24.0 (L) 40.0 - 50.0 % [facility] Specimen Blood, Arterial Performing Organization Address [facility] Center[facility] Phone Number [address] [address] [place] Lactic Acid, Arterial (12/30/2019 4:52 AM CDT)Only the most recent of5 results within the time period is included. Lactate, Art 4.0 (HH)Comment: 0.5 - 2.2 [facility] markedly mmol/L [facility] hemolyzed [place] Specimen Blood, Arterial Narrative Performed At Public Health Technician HEATHER Kapoor [facility] ICAL CENTER Performing Organization Address [facility]/Zipcode Phone Number [address] [address] CENTER Blood gas, venous (12/30/2019 3:30 AM CDT) Pathologist Sig nature pH, Kem 7.39 7.32 - 7.42 [facility] pCO2, Kem 44 41 - 51 mmHg [facility] pO2, Kem 35 25 - 40 mmHg [facility] O2 Sat, Kem 62.0 40.0 - 70.0 % [facility] HCO3, Kem 25 21 - 29 mmol/L [facility] Base Excess, Kem 0.4 -2.0 - 3.0 mmol/L [facility] Patient Temperature 38.1 C [facility] FIO2 40.0 % [facility] Specimen Blood Performing Organization Address City/State/Zipcode Phone Number [address] [address] CENTER Prepare RBC (12/29/2019 3:34 PM CDT) Pathologist Sig nature CROSSMATCH COMPATIBLE SAFETRACE TX Unit ABO O Pos SAFETRACE TX UNIT NUMBER [id number] SAFETRACE TX Status RETURNED FROM ISSUE SAFETRACE TX Blood Bank Product RED BLOOD CELLS SAFETRACE TX PRODUCT CODE [id number] SAFETRACE TX CROSSMATCH COMPATIBLE SAFETRACE TX Unit ABO O Pos SAFETRACE TX UNIT NUMBER [id number] SAFETRACE TX Status RETURNED FROM ISSUE SAFETRACE TX Blood Bank Product RED BLOOD CELLS SAFETRACE TX PRODUCT CODE [id number] SAFETRACE [place] Performing Organization Address City/State/Zipcode Phone Number SAFETRACE [place] Manual Differential (12/29/2019 1:40 PM CDT) % Neutros 75 % [facility] % Lymphs 12 % [facility] % Monos 8 % [facility] % Eos 1 % [facility] % Bands 2 0 - 10 % [facility] % Atypical Lymphs 2 (H) 0 - 0 % [facility] # Neutros 15.98 (H) 1.78 - 5.38 [facility] # Lymphs 2.56 1.32 - 3.57 [facility] # Monos 1.70 (H) 0.30 - 0.82 [facility] # Eos 0.21 0.04 - 0.54 [facility] # Bands 0.43 0.00 - 0.80 [facility] # Atypical Lymphs 0.43 (H) 0.00 - 0.00 [facility] Total Counted 100 [facility] Giant Platelet Present [facility] Vacuolated Neutrophils Present [facility] Anisocytosis 1+ few [facility] Microcytes 1+ few [facility] Artifact Present [facility] Platelet Conc Adequate [facility] Specimen Blood Narrative Performed At Public Health Technician ID - Angely [facility] User comments: Slide comments: Performing Organization Address City/State/Zipcode Phone Number [facility] [address] [place] [address] CENTER CBC with platelet count + automated diff (12/29/2019 1:40 PM CDT)Only the most recent of2 resultswithin the time period is included. WBC 21.3 (H) 3.5 - 10.5 [facility] RBC 3.39 (L) 4.63 - 6.08 [facility] M/L [facility] Hemoglobin 9.9 (L) 13.7 - 17.5 [facility] GM/DL [facility] Hematocrit 30.1 (L) 40.1 - 51.0 % [facility] MCV 88.8 79.0 - 92.2 [facility] MCH 29.2 25.7 - 32.2 [facility] pg [facility] MCHC 32.9 32.3 - 36.5 [facility] GM/DL [facility] RDW 14.4 11.6 - 14.4 % [facility] Platelets 338 150 - 450 [facility] Comment: K/CU [facility] [facility] Discordant results compared to previous, clinica l correlation required. [facility] MPV 9.6 9.4 - 12.4 fL [facility] nRBC 0 0 - 0 /100 [facility] WBC [facility] % Neutros 72 % [facility] % Lymphs 15 % [facility] % Monos 11 % [facility] % Eos 1 % [facility] % Baso 0 % [facility] # Neutros 15.26 (H) 1.78 - 5.38 [facility] # Lymphs 3.22 1.32 - 3.57 [facility] # Monos 2.36 (H) 0.30 - 0.82 [facility] # Eos 0.11 0.04 - 0.54 [facility] # Baso 0.05 0.01 - 0.08 [facility] Immature 1 0 - 1 % [facility] Granulocytes-Relat [facility] miles [facility]ICAL [place] Specimen Blood Performing Organization Address City/State/Zipcode Phone Number [facility] [address] [place] [address] CENTER Hemoglobin A1c (12/29/2019 1:38 PM CDT)Only the most recent of2 resultswithin the time period is included. Pathologist Sig nature Hemoglobin A1C 7.7 (H) 4.3 - 6.1 % [facility] Specimen Blood Performing Organization Address City/[facility]/Zipcode Phone Number [facility] [address] [place] [address] [place] Lipid panel (12/29/2019 1:38 PM CDT)Only the most recent of2 resultswithin the time period is included. Pathologist Sig nature Triglycerides 229 mg/dL [facility] Cholesterol 143 mg/dL [facility] ICAL [place] HDL 27 mg/dL [facility] [place] LDL Calculated 70 mg/dL [facility] EDICAL [place] Specimen Blood Narrative Performed At Triglyceride Reference Range: [facility] Low Risk <150 Borderline 150-199 High Risk 200-499 Very High Risk >=500 Cholesterol Reference Range: Low Risk <200 Borderline 200-239 High Risk >240 HDL Cholesterol Reference Range: Low Risk >=60 High Risk <40 LDL Cholesterol Reference Range: Optimal <100 Near Optimal 100-129 Borderline 130-159 High 160-189 Very High >=190 Public Health Technician ID - [id number] Specimen slightly lipemic Performing Organization Address [facility]/Zipcode Phone Number [facility] [address] [place] [address] [place] Comprehensive metabolic panel (12/29/2019 1:38 PM CDT) Protein, Total 5.0 (L) 6.0 - 8.3 [facility] gm/dL [facility] Albumin 2.7 (L) 3.5 - 5.0 [facility] g/dL [facility] Alkaline 50 40 - 150 U/L [facility] Phosphatase [facility] Total Bilirubin 0.9 0.2 - 1.2 [facility] mg/dL [facility] Sodium 140 136 - 145 [facility] meq/L [facility] Potassium 4.3 3.5 - 5.1 [facility] meq/L [facility] Chloride 109 (H) 98 - 107 [facility] meq/L [facility] CO2 22 22 - 29 meq/L [facility] BUN 18 7 - 21 mg/dL [facility] Creatinine 1.07 0.57 - 1.25 [facility] mg/dL [facility] Glucose 204 (H) 70 - 105 [facility] mg/dL [facility] Calcium 8.7 8.4 - 10.2 [facility] mg/dL [facility] AST 73 (H) 5 - 34 U/L [facility] ALT 46 6 - 55 U/L [facility] EGFR 70Comment: mL/min/1.73 [facility] ESTIMATED GFR IS sq [facility] NOT ACCURATE MEDICAL CENTER CREATININE CLEARANCE IN PREDICTING GLOMERULAR FILTRATION RATE. ESTIMATED GFR IS NOT APPLICABLE FOR DIALYSIS PATIENTS. Specimen Blood Narrative Performed At Public Health Technician ID - [id number] [facility] Specimen slightly lipemic Performing Organization Address City/[facility] Centercode Phone Number [facility] [address] [place] [address] CENTER Platelet Aggregation: Function Screen (12/29/2019 1:37 PM CDT)Only the most recent of2 resultswithin the time period is included. Pathologist: Freddy Sharp M.D. [facility] (electonic signature) [facility] Platelets 258 150 - 450 [facility] K/CU [facility] ADP 30 (L) 62 - 100 % [facility] Platelet Rich Plasma 276 200 - 300 [facility] k/cu [facility] Plt. Function Screen Pattern of [facility] Interpretation disaggregation [facility] present with ADP [facility] which may be characteristic of P2Y12 inhibitor effect. Correlation with medication history is required. Specimen Blood Narrative Performed At Platelet Function Screen results may be [facility] falsely low with platelet counts <75,000/cu mm. Public Health Technician ID - [id number] Performing Organization Address [facility]/Zipcode Phone Number [facility] [address] [place] [address] CENTER PT/aPTT (12/29/2019 1:36 PM CDT)Only the most recent of2 resultswithin the time period is included. Pathologist Sig nature Protime 17.0 (H) 11.9 - 14.2 seconds [facility] INR 1.4 <=5.9 [facility] PTT 26.4 22.5 - 36.0 seconds [facility] Specimen Blood Narrative Performed At Effective 01/05/2019: PT Reference Range [facility] Change New: 11.9-14.2 Previous: 11.7-14.7 RECOMMENDED COUMADIN/WARFARIN INR THERAPY RANGES STANDARD DOSE: 2.0-3.0 Includes: PROPHYLAXIS for venous thrombosis, systemic embolization; TREATMENT for venous thrombosis and/or pulmonary embolus. HIGH RISK: Target INR is 2.5-3.5 for patients wiht mechanical heart valves. 6 hours after starting heparin infusion and as indicated per sliding scale 6 hours after starting heparin infusion and as indicated per sliding scale Performing Organization Address City/State/Zipcode Phone Number [address] [address] CENTER aPTT (12/29/2019 1:36 PM CDT)Only the most recent of3 resultswithin the time period is included. Pathologist Sig nature PTT 26.4 22.5 - 36.0 seconds [facility] Specimen Blood Performing Organization Address City/State/Zipcode Phone Number [facility] [address] [place] [address] CENTER Prothrombin time/INR (12/29/2019 1:36 PM CDT)Only the most recent of2 results within the time period is included. Pathologist Sig nature Protime 17.0 (H) 11.9 - 14.2 seconds [facility] INR 1.4 <=5.9 [facility] Specimen Blood Narrative Performed At Effective 01/05/2019: PT Reference Range [facility] Change New: 11.9-14.2 Previous: 11.7-14.7 RECOMMENDED COUMADIN/WARFARIN INR THERAPY RANGES STANDARD DOSE: 2.0-3.0 Includes: PROPHYLAXIS for venous thrombosis, systemic embolization; TREATMENT for venous thrombosis and/or pulmonary embolus. HIGH RISK: Target INR is 2.5-3.5 for patients wiht mechanical heart valves. Performing Organization Address [facility]/Zipcode Phone Number [address] [address] [place] Fibrinogen (12/29/2019 1:36 PM CDT)Only the most recent of2 resultswithin the time period is included. Pathologist Sig nature Fibrinogen 243 225 - 434 mg/dl [facility] Specimen Blood Narrative Performed At 6 hours after starting heparin infusion and [facility] as indicated per sliding scale Performing Organization Address [facility] Centercoin Phone Number [address] [address] [place] Thromboelastograph (TEG) (12/29/2019 12:43 PM CDT)Only the most recent of2 resultswithin the time period is included. TEG Activated Clotting 3.7 (L) 4.0 - 7.0 [facility] Time minutes [facility] TEG Fibrinogen 75.8 (H) 61.0 - 73.0 [facility] Activity degrees [facility] TEG Platelet 74.8 (H) 55.0 - 65.0 MM [facility] Aggregation [facility] TEG Fibrinolysis 3.2 0.0 - 5.0 % [facility] TEG-H Activated 3.7 (L) 4.0 - 7.0 [facility] Clotting Time minutes [facility] TEG-H Fibrinogen 76.4 (H) 61.0 - 73.0 [facility] Activity degrees [facility] TEG-H Platelet 73.0 (H) 55.0 - 65.0 MM [facility] Aggregation [facility] TEG-H Fibrinolysis 0.5 0.0 - 5.0 % [facility] Specimen Blood Performing Organization Address [facility]/Zipcode Phone Number [address] [address] CENTER Transfuse Leuko-Red PLT (12/29/2019 11:19 AM CDT)Only the most recent of4 resultswithin the time period is included.Platelet count (12/29/2019 11:10 AM CDT) Pathologist Sig nature Platelets 200 150 - 450 K/CU [facility] Specimen Blood Narrative Performed At Public Health Technician ID - [id number] [facility]ENTER Performing Organization Address [facility] [facility] Centercode Phone Number [address] [address] CENTER POC ACTIVATED CLOTTING TIME (12/29/2019 11:05 AM CDT)Only the most recent of6 resultswithin the time period is included. Activated Clotting 98Comment: : sec [facility] Time 74-137 seconds, [facility] MEDICAL Baseline: TESTED CENTER AT [address], [address]: Public Health Technician/Technici an ID = [id number] for YONI RENO Specimen Blood Performing Organization Address [facility] Centercoin Phone Number [address] [address] CENTER MARY (12/29/2019 8:19 AM CDT) Narrative Performed At Roshni Vincent MD 12/29/2019 11:13 AM MARY Date: 12/29/2019 8:19 AM Sex: Male Locati on: OR Requesting Physician: Rodri Nguyen MD Examiner: Roshni Vincent MD Indication: ACB Intubated Sedated Patient screened for esoph disease: Yes Insertion: easy Probe Type: multiplane Modalities: 2D, CFM, CWD and PWD Pre Intervention Summary: 64 yo M presenting for ACB a nd WALT ligation with Dr. Nguyen. Aorta: no aneurysm, no dissection, < 2 m m plaques in descending AV: trileaflet morphology, mild calcific ations, no aortic stenosis, no aortic regurgitation LV: mildly enlarged chamber size, modera te LVH, low-normal systolic function (EF >50% by qualitative assessm ent), no RWMA, no thrombus MV: normal morphology, mild mitral regur gitation, no mitral stenosis LA: no WALT thrombus, normal size and fun ction PV: limited visualization RV: normal sized chamber, normal functio n (TAPSE > 2 cm), no thrombus TV: normal morphology, trace tricuspid r egurgitation RA: no thrombus No RAY No pericardial effusion No PFO by color dopper flow All findings communicated to surgical te am. Post Intervention Summary: S/p 2v ACB and WALT ligation NE @ 2 No aortic dissection LVEF > 60% by qualitative assessment RV function normal No RAY No pericardial effusion S/p WALT ligation - no flow through WALT o bserved Otherwise exam unchanged Procedure Note oRshni Vincent MD - 12/29/2019 8 :19 AM CDT MARY Date: 12/29/2019 8:19 AM Sex: Male Locati on: OR Requesting Physician: Rodri Nguyen MD Examiner: Roshni Vincent MD Indication: ACB Intubated Sedated Patient screened for esoph disease: Yes Insertion: easy Probe Type: multiplane Modalities: 2D, CFM, CWD and PWD Pre Intervention Summary: 64 yo M presen ting for ACB and WALT ligation with Dr. Nguyen. Aorta: no aneurysm, no dissection, < 2 m m plaques in descending AV: trileaflet morphology, mild calcific ations, no aortic stenosis, no aortic regurgitation LV: mildly enlarged chamber size, modera te LVH, low-normal systolic function (EF >50% by qualitative assessment), no RWMA, no thrombus MV: normal morphology, mild mitral regur gitation, no mitral stenosis LA: no WALT thrombus, normal size and fun ction PV: limited visualization RV: normal sized chamber, normal functio n (TAPSE > 2 cm), no thrombus TV: normal morphology, trace tricuspid r egurgitation RA: no thrombus No RAY No pericardial effusion No PFO by color dopper flow All findings communicated to surgical te am. Post Intervention Summary: S/p 2v ACB a nd WALT ligation NE @ 2 No aortic dissection LVEF > 60% by qualitative assessment RV function normal No RAY No pericardial effusion S/p WALT ligation - no flow through WALT o bserved Otherwise exam unchanged Vein Mapping Legs Bilateral (12/28/2019 10:42 PM CDT) Pathologist Sig nature Ejection Fraction [facility] Specimen Impressions Performed At [facility] 1. There is no deep venous venous obstruction in the common femoral, profunda femoral, femoral, popliteal, posterior tibial or peroneal veins. 2. There is no superficial venous obstruction in the great saphenous vein. Left Impression 1. There is no deep venous obstruction in the common femoral, profunda femoral, femoral, popliteal, posterior tibial or peroneal veins. 2. There is no superficial venous obstruction in the great saphenous vein. Conclusions Summary Venous duplex imaging and compression of the bilateral lower extremities was performed. The veins were adequately visualized. The bilateral venous systems were patent and compressible with no evidence of thrombus. Superficial venous measurements are documented below. Signature Velocities are measured in cm/s ; Diameters are measured in cm LE Vein Mapping Superficial - Great Saphenous Vein Right Left + + + + + + + + !Location ! !Diameter !Depth ! !Diameter !Depth ! + + + + + + + + !Sapheno Femoral Junction ! !0.73 ! ! !0.97 ! ! + + + + + + + + !GSV High Thigh ! !0.61 ! ! !0.73 ! ! + + + + + + + + !GSV Mid Thigh ! !0.57 ! ! !0.32 ! ! + + + + + + + + !GSV Low Thigh ! !0.53 ! ! !0.44 ! ! + + + + + + + + !GSV Knee ! !0.51 ! ! !0.43 ! ! + + + + + + + + !GSV High Calf ! !0.44 ! ! !0.35 ! ! + + + + + + + + !GSV Mid Calf ! !0.32 ! ! !0.36 ! ! + + + + + + + + !GSV Low Calf ! !0.24 ! ! !0.29 ! ! + + + + + + + + !GSV Ankle ! !0.2 ! ! !0.33 ! ! + + + + + + + + Narrative Performed At PV LAB - Lower Extremities Vein Mapping [facility] ECHO HEART[facility] Demographics Patient Name KUMAR FORMAN Date of Study 12/28/2019 Age 64 Visit Number [id number] Gender Male Accession Number [id number] Date of 1955 Referring Torrey Ponce Room Number SCPR Physician Concrete Conveyor Operator Adele Dawson Interpreting Vicky Oates Alejandra Physician Procedure Type of Study: Veins: Lower Extremity Vein Mapping, VEIN MAPPING, LOWER EXTREMITY, BILATERAL. Indications for Study:Pre-op evaluation. Patient Status:Routine. Study Location:Portable. Technical Quality:Adequate visualization . Risk Factors History of Disease + +----+--- + !Diagnosis !Date!Comments ! + +----+--- + !History/Risk Factors: ! !Morbid obesity ! ! ! !CAD ! + +----+--- + Procedure Note Interface, External Ris In - 12/29/2019 7:47 AM CDT [facility] - Lower Extremities Vein Mapping Demographics Patient Name KUMAR FORMAN Hasmukh e of Study 12/28/2019 Age 64 Visit Number [id number] Gen digna Male Accession Number [id number] Hasmukh e of 1955 Referring Torrey Renteriamonica Kris Roman emelia Number SCPR Physician Concrete Conveyor Operator Adele [facility] Vicky Oates, T Joseph hartman MD Procedure Type of Study: Veins: Lower Extremity Vein Mapping, VE IN MAPPING, LOWER EXTREMITY, BILATERAL. Indications for Study:Pre-op evaluation. Patient Status:Routine. Study Location:Portable. Technical Quality:Adequate visualization . Risk Factors History of Disease + -+----+ + !Diagnosis !Date!Comments ! + -+----+ + !History/Risk Factors: ! !Morbid obesity ! ! ! !CAD ! + -+----+ + Impressions Right Impression 1. There is no deep venous venous obstru ction in the common femoral, profunda femoral, femoral, popliteal, po sterior tibial or peroneal veins. 2. There is no superficial venous obstru ction in the great saphenous vein. Left Impression 1. There is no deep venous obstruction i n the common femoral, profunda femoral, femoral, popliteal, posterior t ibial or peroneal veins. 2. There is no superficial venous obstru ction in the great saphenous vein. Conclusions Summary Venous duplex imaging and compression o f the bilateral lower extremities was performed. The veins were adequatel y visualized. The bilateral venous systems were patent and compressible wi th no evidence of thrombus. Superficial venous measurements are doc umented below. Signature Velocities are measured in cm/s ; Diamet ers are measured in cm LE Vein Mapping Superficial - Great Saphenous Vein Right Left + + + + + + + + !Location ! !Diameter !Depth ! !Diameter !Depth ! + + + + + + + + !Sapheno Femoral Junction ! !0.73 ! ! !0.97 ! ! + + + + + + + + !GSV High Thigh ! !0.61 ! ! !0.73 ! ! + + + + + + + + !GSV Mid Thigh ! !0.57 ! ! !0.32 ! ! + + + + + + + + !GSV Low Thigh ! !0.53 ! ! !0.44 ! ! + + + + + + + + !GSV Knee ! !0.51 ! ! !0.43 ! ! + + + + + + + + !GSV High Calf ! !0.44 ! ! !0.35 ! ! + + + + + + + + !GSV Mid Calf ! !0.32 ! ! !0.36 ! ! + + + + + + + + !GSV Low Calf ! !0.24 ! ! !0.29 ! ! + + + + + + + + !GSV Ankle ! !0.2 ! ! !0.33 ! ! + + + + + + + + Performing Organization Address City/State/[place] [facility] Cent[facility]ode Phone Number [facility] [employer] [facility] Carotid doppler bilateral (12/28/2019 10:20 PM CDT) [facility] nature Ejection Fraction [facility] Minimally invasive devices [facility] Specimen Impressions Performed At Right Impression [facility] [employer] [facility] 1. The internal, common and external carotid arteries are within normal limits. 2. The vertebral artery flow is antegrad e . 3. The subclavian artery is within normal limits where visualized. Left Impression 1. The internal, common and external carotid arteries are within normal limits. 2. The vertebral artery flow is antegrad e . 3. The subclavian artery is within normal limits where visualized. Conclusions Summary Carotid duplex scanning and color flow imaging were performed bilaterally. The arteries were difficult to visualize due to body habitus and no areas of stenosis were found bilaterally. Doppler flow velocities were within normal range bilaterally. The vertebral artery flow was antegrade and normal bilaterally. The subclavian arteries were patent with normal flow bilaterally where visualized. Signature Velocities are measured in cm/s ; Diameters are measured in cm Carotid Right Measurements + +----+----+-----+ +---- + + !Location !PSV !EDV !Angle!%Stenosis 2D!%Stenosis Doppler!Tortuosity ! + +----+----+-----+ +---- + + !Prox CCA !35.6!12.9!0 ! ! ! ! + +----+----+-----+ +---- + + !Dist CCA !84.8!24 !60 ! ! ! ! + +----+----+-----+ +---- + + !Prox ICA !92.4!26.2!60 ! !Normal ! ! + +----+----+-----+ +---- + + !Dist ICA !80.9!24.7!60 ! ! ! ! + +----+----+-----+ +---- + + !Prox ECA !132 !27.2!60 ! ! ! ! + +----+----+-----+ +---- + + !Prox Subclavian!213 !44.7!60 ! ! ! ! + +----+----+-----+ +---- + + - There is antegrade vertebral flow noted on the right side. - Additional Measurements:ICAPSV/CCAPSV 1.09.ICAEDV/CCAEDV 2.03. Carotid Left Measurements + +----+----+-----+ +---- + + !Location !PSV !EDV !Angle!%Stenosis 2D!%Stenosis Doppler!Tortuosity ! + +----+----+-----+ +---- + + !Prox CCA !129 !31.2!60 ! ! ! ! + +----+----+-----+ +---- + + !Dist CCA !71.9!17.6!60 ! ! ! ! + +----+----+-----+ +---- + + !Prox ICA !76.9!22 !60 ! !Normal ! ! + +----+----+-----+ +---- + + !Dist ICA !54.9!26.4!60 ! ! ! ! + +----+----+-----+ +---- + + !Prox ECA !66.4!14.3!60 ! ! ! ! + +----+----+-----+ +---- + + !Vertebral !35.1! !60 ! ! ! ! + +----+----+-----+ +---- + + !Prox Subclavian!123 !24.3!60 ! ! ! ! + +----+----+-----+ +---- + + - There is antegrade vertebral flow noted on the left side. - Additional Measurements:ICAPSV/CCAPSV 1.07.ICAEDV/CCAEDV 0.85. Narrative Performed At LAB - Carotid Duplex Study [facility]CHO [facility]ART[facility] Demographics Patient Name KUMAR FORMAN Date of Study 12/28/2019 Age 64 Visit Number [id number] Gender Male Accession Number [id number] Date of 1955 Referring Torrey Ponce Room Number SCPR Physician Concrete Conveyor Operator Adele Dawson Interpreting Vicky Oates [facility] Physician Procedure Type of Study: Cerebral: Carotid, CAROTID DOPPLER, SAMUEL ATERAL. Indications for Study:Pre-operational ev aluation. Patient Status:DAVID. Study Location:Portable. Technical Quality:Technically Difficult. Risk Factors History of Disease + +----+--- + !Diagnosis !Date!Comments ! + +----+--- + !History/Risk Factors: ! !Morbid obesity ! ! ! !CAD ! + +----+--- + Procedure Note Interface, External Ris In - 12/29/2019 7:47 AM CDT PV [facility] - Carotid Duplex Study Demographics Patient Name KUMAR FORMAN Hasmukh e of Study 12/28/2019 Age 64 Visit Number [id number] Gen digna Male Accession Number [id number] Hasmukh e of 1955 Referring Torrey kapoor Number SCPR Physician Concrete Conveyor Operator Adele Dawson Int erpretin Vicky Oates, T Joseph hartman MD Procedure Type of Study: Cerebral: Carotid, CAROTID DOPPLER, SAMUEL ATERAL. Indications for Study:Pre-operational ev aluation. Patient Status:DAVID. Study Location:Portable. Technical Quality:Technically Difficult. Risk Factors History of Disease + -+----+ + !Diagnosis !Date!Comments ! + -+----+ + !History/Risk Factors: ! !Morbid obesity ! ! ! !CAD ! + -+----+ + Impressions Right Impression 1. The internal, common and external car otid arteries are within normal limits. 2. The vertebral artery flow is antegrad e . 3. The subclavian artery is within marilu l limits where visualized. Left Impression 1. The internal, common and external car otid arteries are within normal limits. 2. The vertebral artery flow is antegrad e . 3. The subclavian artery is within marilu l limits where visualized. Conclusions Summary Carotid duplex scanning and color flow imaging were performed bilaterally. The arteries were difficult to visualiz e due to body habitus and no areas of stenosis were found bilaterally. Dop pler flow velocities were within normal range bilaterally. The vertebral artery flow was antegrade and normal bilaterally. The subclavian brent modesta were patent with normal flow bilaterally where visualized. Signature Velocities are measured in cm/s ; Diamet ers are measured in cm Carotid Right Measurements + +----+----+-----+------- -----+ + + !Location !PSV !EDV !Angle!%Stenos is 2D!%Stenosis Doppler!Tortuosity ! + +----+----+-----+------- -----+ + + !Prox CCA !35.6!12.9!0 ! ! ! ! + +----+----+-----+------- -----+ + + !Dist CCA !84.8!24 !60 ! ! ! ! + +----+----+-----+------- -----+ + + !Prox ICA !92.4!26.2!60 ! !Normal ! ! + +----+----+-----+------- -----+ + + !Dist ICA !80.9!24.7!60 ! ! ! ! + +----+----+-----+------- -----+ + + !Prox ECA !132 !27.2!60 ! ! ! ! + +----+----+-----+------- -----+ + + !Prox Subclavian!213 !44.7!60 ! ! ! ! + +----+----+-----+------- -----+ + + - There is antegrade vertebral flow no stephany on the right side. - Additional Measurements:ICAPSV/CCAPS V 1.09.ICAEDV/CCAEDV 2.03. Carotid Left Measurements + +----+----+-----+------- -----+ + + !Location !PSV !EDV !Angle!%Stenos is 2D!%Stenosis Doppler!Tortuosity ! + +----+----+-----+------- -----+ + + !Prox CCA !129 !31.2!60 ! ! ! ! + +----+----+-----+------- -----+ + + !Dist CCA !71.9!17.6!60 ! ! ! ! + +----+----+-----+------- -----+ + + !Prox ICA !76.9!22 !60 ! !Normal ! ! + +----+----+-----+------- -----+ + + !Dist ICA !54.9!26.4!60 ! ! ! ! + +----+----+-----+------- -----+ + + !Prox ECA !66.4!14.3!60 ! ! ! ! + +----+----+-----+------- -----+ + + !Vertebral !35.1! !60 ! ! ! ! + +----+----+-----+------- -----+ + + !Prox Subclavian!123 !24.3!60 ! ! ! ! + +----+----+-----+------- -----+ + + - There is antegrade vertebral flow no stephany on the left side. - Additional Measurements:ICAPSV/CCAPS V 1.07.ICAEDV/CCAEDV 0.85. Performing Organization Address City/State/Zipcode Phone Number [facility], manual (12/28/2019 7:32 PM CDT) Pathologist Sig nature ABO Grouping O [facility] Rh Factor POS [facility] Specimen Blood Performing Organization Address City/[facility]/Zipcode Phone Number [address] [address] Type and screen, automated ([facility]) (12/28/2019 7:13 PM CDT) Pathologist Sig nature ABO/RH AUTOMATED O POSITIVE [facility] ([facility] Ab Scrn NEGATIVE [facility] Specimen Blood Performing Organization Address [facility] Phone Number [address] [address] Troponin I (12/28/2019 7:13 PM CDT) Pathologist Sig nature Troponin I <0.01 0.00 - 0.03 ng/mL [facility] Specimen Blood Narrative Performed At Troponin I (TnI) levels must be interpreted [facility] in the context of the presenting symptoms and the clinical findings. Elevated TnI levels indicate myocardial damage, but are not specific for ischemic heart disease. Elevated TnI levels are seen in patients with other cardiac conditions (including myocarditis and congestive heart failure), and slight TnI elevations occur in patients with other conditions, including sepsis, renal failure, acidosis, acute neurological disease, and persistent tachyarrhythmia. Public Health Technician ID - BS Performing Organization Address City/[facility]/Zipcode Phone Number [address] [address] CENTER SARS-CoV2/RT-PCR (Asymptomatic ONLY) (12/28/2019 6:32 PM CDT) SARS-COV2/RT-PCR Not Detected Not Detected, [facility] SARS-COV-2 [facility] Specimen Other - Nasopharyngeal wall structure (b kris structure) Narrative Performed At Negative results do not preclude SARS-CoV-2 [facility] infection and should not be used as the sole basis for patient management decisions. Negative results must be combined with clinical observations, patient history, and epidemiological information. A false negative result may occur if a specimen is improperly collected, transported or handled. The limit of detection for this assay is 250 copies/mL. This SARS CoV-2 test is a rapid, real-time RT-PCR test intended for the qualitative detection of nucleic acid from SARS-CoV-2 in a nasopharyngeal swab specimen collected from individuals suspected of COVID-19 by their healthcare provider. This test has not been Food and Drug Administration (FDA) cleared or approved and has been authorized by FDA under an Emergency Use Authorization (EUA). This EUA will be effective until the declaration that circumstances exist justifying the authorization of the emergency use of in vitro diagnostic tests for detection and/or diagnosis of COVID-19 is terminated under Section 564(b)(2) of the Act or the EUA is revoked under Section 564(g) of the Act. Fact Sheet for Healthcare Providers: https://www.[employer]/Documents/Xpert%20Xpre ss%20SARS%20CoV-2/Fact%20Sheets/302-3802%20SAR S-COV-2%20HEALTHCARE%20PROVIDERS%20FACT%20SHEE T.pdf Fact Sheet for Healthcare Patients: https://www.[employer]/Documents/Xpert%20Xpre ss%20SARS%20CoV-2/Fact%20Sheets/302-3801%20SAR S-COV-2%20PATIENT%20FACT%20SHEET.pdf Performing Laboratory: [address] [place] [address] Performing Organization Address City/State/Zipcode Phone Number [facility] [address] [place] [phone] CENTER after 08/11/2019 Insurance Payer Benefit Plan / Subscriber ID Effective Dates Phone Addre ss Type Group BLUE BCBS PPO POS [id number] 2014-Presen [phone] [id number] PPO CROSS/BLUE EPO CHOICE t 2 [facility] [id number] Advance Directives For more information, please contact: [phone] Code Status Date Activated Date Inactivated Comments Full Code 12/29/2019 1:26 PM 01/06/2020 3:30 PM This code status was determined by: Patient Full Code 12/28/2019 9:52 PM 12/29/2019 1:26 PM This code status was determined by: Patient Full Code 12/28/2019 6:18 PM 12/28/2019 9:52 PM This code status was determined by: Patient
--- OUTSIDE RECORDS SUMMARY | 2020-08-11 18:57 | XMS REPORT | Continuity of Care Document ---
:1955 Author Organization [facility] t Address [address] [place] [address] Care Team Providers Name Role Phone System, Not In Primary Care Physician Unavailable Lab, Fam Pob I Attending Clinician Unavailable Hedy GUNTER Attending Clinician Ale Nguyen MD Attending Clinician Torrey PERDUE S Attending Clinician Abner PERDUE Attending Clinician Jayy Salomon MD Attending Clinician Willa PERDUE Attending Clinician Carlton PERDUE LAudi Attending Clinician Concepcion PERDUE Attending Clinician Unavailable Kris WEINBERG Attending Clinician Unavailable Kris WEINBERG Admitting Clinician Unavailable Payers Payer Name Policy Type Policy Effective Date Expiration Date Sour ce Number BLUE CROSS/BLUE [id number] [facility] access hospitalBS PPO 00:00:00 - Medical POS EPO Center [id number] [id number], [place] [id number] Problems Condition Condition Condition Status Onset Resolution Last Treating Co mments Source Name Details Category Date Date Treatment Clinician Date Coronary Coronary Disease [facility] disease [facility] Medical 00 Center S/P ACB x2 S/P ACB x2 Disease Active [facility] by by 12-27 Lucy Patrick on on 00:00: Me dical 12/29/19 12/29/19 00 Center Acute Acute Disease Active [facility] respirator respirator Mimi s - y y Medical insufficie insufficie Ce nter ncy ncy Morbid Morbid Disease Active [facility] obesity obesity [facility] - with BMI with BMI Medica l of of Center 45.0-49.9, 45.0-49.9, adult adult Acute Acute Disease Active [facility] blood loss blood loss [facility] anemia anemia [facility] Hyperglyce Hyperglyce Disease Active [facility] allison allison [facility] Hypotensio Hypotensio Disease Active [facility] n after n after [facility] - procedure procedure [facility] Acute Acute Disease Active [facility] respirator respirator ke - y failure y failure [facility] with with Center hypoxia hypoxia S/P CABG S/P CABG Disease Active [facility] (coronary (coronary [place] - artery artery Medical bypass bypass Center graft) graft) Paroxysmal Paroxysmal Disease Active [facility] atrial atrial [facility] - fibrillati fibrillati Me dical on on Center Allergies, Adverse Reactions, Alerts Allergy Allergy Status Severity Reaction(s) Onset Inactive Treating Comm ents Source Name Type Date Date Clinician Iodinate DA Active [facility] d 6-10 Clear Contrast 00:00: Amanda - Oral 00 Regiona and IV l Dye [facility] Penicill DA Active [facility] ins 6-10 Clear 00:00: Amanda 00 [facility] phenazop DA Active [facility] yridine 6-10 Clear 00:00: Amanda 00 [facility] Iodinate DA Active [facility] d 1-15 [place] Contrast 00:00: Orthope - Oral 00 dic and IV Hospita Dye l Penicill DA Active [facility] ins 8-06 [facility] 00:[facility]: [facility] [place] iodine DA Active [facility] 8-06 [facility] 00:[facility]: [facility] [place] phenazop DA Active [facility] yridine 8-06 [facility] 00:00: [facility] [place] Phenazop Propensi Active Anaphylaxis [facility] yridine ty to 1 [facility] - adverse 00:00: Medical reaction 00 Center s Iodine Propensi Active Anaphylaxis, Other [facility] ty to Hives, Rash 6-13 reaction( Mimi kes - adverse 00:00: s): Medical reaction 00 Hives/[facility] Cente r s hIV Iodine Penicill Propensi Active Anaphylaxis, [facility] ins ty to Hives 6-13 [facility] - adverse 00:00: Medical reaction 00 Center s Social History Social Habit Start Date Stop Date Quantity Comments Source Sex Assigned At [facility] Medical [facility] Tobacco use and 2020-01-18 2020-01-[address] [facility] - exposure 00:00:00 00:00:00 Medical Center Alcohol intake 2020-01-18 2020-01-18 [facility] - 00:[facility]:00 00:00:00 of alcohol Medical Center ([facility]) History [facility] 2019-12-28 2019-12-[address] [facility] - Alcohol Frequency 00:00:00 00:00:00 Medical Center History [facility] 2019-12-28 2019-12-[address] [facility] - Alcohol Std Drinks 00:00:00 00:00:00 Medica l Center History [facility] 2019-12-28 2019-12-[address] [facility] - Alcohol Binge 00:00:00 00:00:[address] History [facility] 2019-12-28 2019-12-[address] [facility] - Education 00:00:00 00:00:00 Medical Center History [facility] 2019-12-28 2019-12-[address] [facility] - Financial 00:00:00 00:00:00 Medical Center History [facility] Food 2019-12-28 2019-12-[address] [facility] - Worry 00:00:00 00:00:00 Medical Center History [facility] Food 2019-12-28 2019-12-[address] [facility] - Scarcity 00:00:00 00:00:00 Medical Center History [facility] 2019-12-28 2019-12-[address] [facility] - Transport Med 00:00:00 00:00:[address] History [facility] 2019-12-28 2019-12-[address] [facility] - Transport Non-Med 00:00:00 00:00:00 Medical Center History of tobacco 2019-12-[address] [facility] - use 00:00:00 Medical Center Smoking Status Start Date Stop Date Source Former smoker 2020-01-18 00:00:00 2020-01-18 00:00:[address] [facility] Medications Ordered Filled Start Stop Current Ordering Indication Dosage Frequency Signature Comments Components Source Medication Medication Date Date Medication? Clinician (SIG) Name Name aspirin 81 No 81mg QD Take [address] [facility] MG chewable 5-30 05-30 tablet (81 L ukes - tablet 00:00: 23:59 mg total) Medic al 00 :00 by mouth Center daily. amiodarone 400mg QD Take [address] (PACERONE) 5-30 05-30 tablet [facility] - 400 MG 00:00: 23:59 (400 mg Medical tablet 00 :00 total) by Center mouth daily. lisinopriL 2.5mg QD Take [address] (PRINIVIL,Z 5-30 -10 tablet [facility] - ESTRIL) 2.5 00:00: 00:00 (2.5 mg Me dical MG tablet 00 :00 total) by Cente r mouth daily. insulin Yes 50U Q.5D Inject 50 [facility] glargine 5-29 Units [facility] - (LANTUS 00:00: subcutaneo Medi karla SOLOSTAR 00 usly 2 Center U-100 (two) INSULIN) times 100 unit/mL daily. (3 mL) InPn insulin Yes To use [facility] aspart 5-29 from 15 to [facility] - U-100 00:00: 45 units Medical (NOVOLOG 00 three Center FLEXPEN times a U-100 day by INSULIN) sliding 100 unit/mL sale (3 mL) InPn before meals. pen needle, Yes To use [address] diabetic 31 5-29 day. [facility] - gauge x 00:00: Medical 16" Ndle 00 Center HYDROcodone Yes 1{tbl} Take [address] -acetaminop 5-29 tablet by Ava es - hen (NORCO 00:00: mouth Medica l 7.5-325) 00 every 6 Center 7.5-325 mg (six) per tablet hours as needed. Max Daily Amount: 4 tablets blood-gluco Glucometer [facility] se meter 01-05 : test [facility] - kit 00:00: 23:59 strips to Medical 00 :00 use 4 a Center day # 400 refills x 3;lancets to use 4 a day # 400 Refills x3. atorvastati No 40mg QD Take [address] n (LIPITOR) 01-05 tablet (40 L ukes - 40 MG 00:00: 23:59 mg total) Medica l tablet 00 :00 by mouth Center nightly. metoprolol No 75mg Q.5D Take [address] tartrate 75 01-05 by mouth 2 L ukes - mg Tab 00:00: 23:59 (two) Medical 00 :00 times Center daily. torsemide No 20mg Q.5D Take 1 [facility] (DEMADEX) 01-05 tablet (20 Ava es - 20 MG 00:00: 23:59 mg total) Medica l tablet 00 :00 by mouth 2 Center (two) times daily. montelukast Yes 1{tbl} QD Take [address] (SINGULAIR) 5-19 tablet by Ava es - 10 mg 00:00: mouth Medical tablet 00 daily. Center RABEprazole Yes 1{tbl} QD Take [address] (ACIPHEX) 5-19 tablet by [facility] - 20 mg EC 00:00: mouth Medical tablet 00 daily. Center losartan-hy 2019- No [facility] droCHLOROth -01-05 [facility] - iazide 00:00: 00:00 Medical (HYZAAR) 00 :00 Center 50-12.5 mg per tablet HYDROcodone 2019- No 1{tbl} Take [address] -acetaminop 12-06 tablet by Mimi kes - hen (NORCO 00:00: 00:00 mouth Medic al 7.5-325) 00 :00 every 6 Center 7.5-325 mg (six) per tablet hours as needed. glimepiride Yes 4mg Q.5D Take [address] (AMARYL) 4 4-03 by mouth 2 Ava es - MG tablet 00:00: (two) Medical 00 times Center daily. clopidogreL 2019- No 75mg QD Take [address] (PLAVIX) 75 4-03 05-29 by mouth Ava es - mg tablet 00:00: 00:00 daily. Medic al 00 :00 Friedens metFORMIN 2019- No 1000mg Q.5D Take 1,[address] (GLUCOPHAGE 4-03 05-22 mg by [facility] - ) 1000 MG 00:00: 00:00 mouth 2 Medi karla tablet 00 :00 (two) Center times daily. finasteride Yes 5mg QD Take [address] (PROSCAR) 5 3-30 by mouth Luke s - mg tablet 00:00: daily. Medica l 00 Friedens gabapentin Yes 1{tbl} QD Take [address] (NEURONTIN) 3-10 tablet by Ava es - 600 MG 00:00: mouth Medical tablet 00 daily. Friedens metoprolol 2019- No 100mg QD Take [address] succinate 3-10 05-29 mg by [facility] - (TOPROL-XL) 00:00: 00:00 mouth Medi karla 100 MG 24 00 :00 daily. Center hr tablet Vital Signs Vital Name Observation Time Observation Value Comments Source Systolic blood 2020-01-18 11:18:00 111 mm[Hg] [facility] Diastolic blood 2020-01-18 11:18:00 52 mm[Hg] [facility] S [facility] Heart rate 2020-01-18 11:18:00 75 /min [facility] Body temperature 2020-01-18 11:18:00 36.83 [facility] Respiratory rate 2020-01-18 11:18:00 18 /min [facility] Body height 2020-01-18 11:18:00 170.2 cm [facility] Body weight 2020-01-18 11:18:00 139.844 kg [facility] BMI 2020-01-18 11:18:00 48.29 kg/m2 [facility] Oxygen saturation in 2020-01-18 11:18:00 96 /min room iar [facility] - Arterial blood by Medical Ce nter Pulse oximetry Procedures Procedure Date / Time Performing Clinician Source Performed RHYTHM STRIP - SCAN 2020-01-18 15:40:44 Provider, [facility] RHYTHM STRIP - SCAN 2020-01-09 13:50:38 Provider, [facility] VASCULAR DIAGRAM -SCAN 2020-01-09 13:50:25 Provider, [facility] POCT-GLUCOSE METER 2020-01-06 11:06:00 [facility] POCT-GLUCOSE METER 2020-01-06 07:35:[facility] 2020-01-06 05:22:00 Raine [facility] CBC (HEMOGRAM ONLY) 2020-01-06 05:22:00 Raine [facility] MAGNESIUM 2020-01-06 05:21:00 Raine [facility] PHOSPHORUS 2020-01-06 05:21:00 Raine [facility] POCT-GLUCOSE METER 2020-01-05 22:16:00 [facility] POCT-GLUCOSE METER 2020-01-05 16:35:00 [facility] POCT-GLUCOSE METER 2020-01-05 11:37:00 [facility]SE METER 2020-01-05 07:21:00 [facility] CALCIUM, IONIZED 2020-01-05 04:44:[facility] 2020-01-05 04:00:00 Raine [facility] MAGNESIUM 2020-01-05 04:00:00 Raine [facility] PHOSPHORUS 2020-01-05 04:00:00 Raine [facility] BASIC METABOLIC PANEL (7) 2020-01-05 04:00:00 Gloria Saha [facility] POCT-GLUCOSE METER 2020-01-04 20:56:00 [facility] BASIC METABOLIC PANEL (7) 2020-01-04 17:04:00 Gloria Saha [facility] POCT-GLUCOSE METER 2020-01-04 16:58:00 [facility] POCT-GLUCOSE METER 2020-01-04 12:13:00 [facility] ECHOCARDIOGRAM 2020-01-04 11:38:19 Flavio Weinberg I [facility] POCT-GLUCOSE METER 2020-01-04 08:12:00 [facility]CI[facility], ION[facility]ED 2020-01-04 05:24:00 [facility] CBC (HEMOGRAM ONLY) 2020-01-04 05:24:00 [facility] 2020-01-04 05:24:00 [facility]US 2020-01-04 05:24:00 [facility] BASIC METABOLIC PANEL (7) 2020-01-04 05:24:00 Gloria Saha [facility] XR CHEST 1 VIEW 2020-01-04 03:46:00 Felipa Fuentes [facility] - PORTABLE/BEDSIDE [facility] POCT-GLUCOSE METER 2020-01-03 21:59:00 ValJacinta carter [facility] BASIC METABOLIC PANEL (7) 2020-01-03 17:17:00 Gloria Saha [facility] POCT-GLUCOSE METER 2020-01-03 11:34:00 [facility] POCT-[facility]UCOSE METER 2020-01-03 07:25:00 [facility] BASIC METABOLIC PANEL (7) 2020-01-03 03:01:00 Sonny Ni [facility] CALCIUM, IONIZED 2020-01-03 03:01:00 Raine [facility] CBC (HEMOGRAM ONLY) 2020-01-03 03:01:00 Raine [facility] MAGNESIUM 2020-01-03 03:01:00 Raine [facility] PHOSPHORUS 2020-01-03 03:01:00 Raine [facility] HEPATIC FUNCTION PANEL 2020-01-03 03:01:00 Gloria Saha [facility] AMYLASE 2020-01-03 03:01:00 Gloria Saha [facility] LIPASE 2020-01-03 03:01:00 Gloria Saha [facility] XR CHEST 1 VIEW 2020-01-03 02:45:00 Felipa Fuentes [facility] - PORTABLE/BEDSIDE [facility] POCT-GLUCOSE METER 2020-01-02 22:45:00 Abner [facility] POTASSIUM 2020-01-02 17:47:00 Gloria Saha [facility] MAGNESIUM 2020-01-02 17:47:00 Gloria Saha [facility] POCT-GLUCOSE METER 2020-01-02 17:26:00 Abner [employer] [facility] US ABDOMEN COMPLETE 2020-01-02 17:08:00 Gloria Saha [facility] SPUTUM CULTURE + GRAM STAIN 2020-01-02 13:21:00 Isabel Goldberg [facility] AMYLASE 2020-01-02 13:05:00 Gloria Saha [facility] LIPASE 2020-01-02 13:05:00 Gloria Saha [facility] HEPATIC FUNCTION PANEL 2020-01-02 13:05:00 Gloria Saha [facility] PROCALCITONIN 2020-01-02 13:05:00 Gloria Saha [facility] CBC (HEMOGRAM ONLY) 2020-01-02 13:05:00 Gloria Saha [facility] D-DIMER 2020-01-02 13:05:00 [facility] POCT-GLUCOSE METER 2020-01-02 11:35:00 [facility] URINALYSIS W/ REFLEX URINE 2020-01-02 11:05:[address] [facility] CULTURE [facility] POCT-GLUCOSE METER 2020-01-02 07:21:00 [facility] BASIC METABOLIC PANEL (7) 2020-01-02 03:25:00 Raine [facility] CALCIUM, IONIZED 2020-01-02 03:25:00 Raine [facility] CBC (HEMOGRAM ONLY) 2020-01-02 03:25:00 Raine [facility] MAGNESIUM 2020-01-02 03:25:00 [facility] OXYGEN SATURATION, MEASURED 2020-01-02 03:25:00 [facility]US 2020-01-02 03:25:00 [facility]ST 1 VIEW 2020-01-02 02:10:00 Felipa Fuentes [facility] - PORTABLE/BEDSIDE [facility] POCT-GLUCOSE METER 2020-01-01 22:34:00 [facility] POCT-GLUCOSE METER 2020-01-01 16:35:00 [facility] POTASSIUM 2020-01-01 16:34:00 Sindhu [facility] MAGNESIUM 2020-01-01 16:34:00 Sindhu [facility] CALCIUM, IONIZED 2020-01-01 16:34:00 Jackie Liz [facility] SPUTUM CULTURE + GRAM STAIN 2020-01-01 13:10:00 Jackie Liz eoma [facility] 2D ECHO W/ DOPPLER 2020-01-01 12:24:43 [facility] (CW/PW/COLOR) [facility] POCT-GLUCOSE METER 2020-01-01 12:07:00 [facility] [facility] POTASSIUM 2020-01-01 10:38:00 [facility] MAGNESIUM 2020-01-01 10:38:00 [facility] PROCALCITONIN 2020-01-01 10:38:00 JamessimoneJackieeoma [facility] POCT-GLUCOSE METER 2020-01-01 07:46:00 [facility] BASIC METABOLIC PANEL (7) 2020-01-01 03:43:00 [facility] CALCIUM, IONIZED 2020-01-01 03:43:00 Raine [facility] CBC (HEMOGRAM ONLY) 2020-01-01 03:43:00 Raine [facility] MAGNESIUM 2020-01-01 03:43:00 Raine [facility] OXYGEN SATURATION, MEASURED 2020-01-01 03:43:00 Raine [facility] PHOSPHORUS 2020-01-01 03:43:00 Raine [facility] XR CHEST 1 VIEW 2020-01-01 00:32:00 Nuno Miles [facility] PORTABLE/BEDSIDE Medical Center POCT-GLUCOSE METER 2019-12-31 22:32:00 [facility] TRANSFUSION SERVICE REPORT - 2019-12-31 17:52:32 Montrell Reyna lt [facility] SCAN Scanning [facility] POCT-GLUCOSE METER 2019-12-31 16:36:00 Flavio Weinberg [facility] POTASSIUM 2019-12-31 14:08:[address] MAGNESIUM 2019-12-31 14:08:00 Beadaysi [facility] LACTIC ACID, VENOUS 2019-12-31 11:35:00 Jackie Liz [facility] POCT-GLUCOSE METER 2019-12-31 11:09:00 Torrey, [facility] POCT-GLUCOSE METER 2019-12-31 06:19:[address] [facility] ECG 12-LEAD 2019-12-31 05:03:33 Unknown, Hl7 [facility] ECG 12-LEAD 2019-12-31 05:03:17 Unknown, Hl7 [facility] OXYGEN SATURATION, MEASURED 2019-12-31 04:21:00 Raine [facility] BLOOD GAS, ARTERIAL 2019-12-31 04:19:00 Raine [facility] BASIC METABOLIC PANEL (7) 2019-12-31 04:15:00 Raine [facility] I [facility] CBC (HEMOGRAM ONLY) 2019-12-31 04:15:00 Raine [facility] MAGNESIUM 2019-12-31 04:15:00 Raine [facility] PHOSPHORUS 2019-12-31 04:15:00 Raine [facility] CALCIUM, IONIZED 2019-12-31 04:13:00 Raine [facility] XR CHEST 1 VIEW 2019-12-31 02:10:00 Nuno Miles [facility]/BEDSIDE Medical Center PREPARE PLATELETS 2019-12-30 23:54:00 Rodri Nguyen [facility] POCT-GLUCOSE METER 2019-12-30 23:46:[address] [facility] POCT-GLUCOSE METER 2019-12-30 21:32:00 Torrey, [facility] POCT-GLUCOSE METER 2019-12-30 18:39:00 [facility] TRANSFUSION SERVICE REPORT - 2019-12-30 17:53:13 ProviderMontrell [facility] BASIC METABOLIC PANEL (7) 2019-12-30 16:57:00 Raine Sonny [facility] MAGNESIUM 2019-12-30 16:57:00 Raine [facility] POCT-GLUCOSE METER 2019-12-30 16:27:[address] [facility] POCT-GLUCOSE METER 2019-12-30 14:32:00 [facility] POCT-GLUCOSE METER 2019-12-30 11:28:00 [facility] POCT-GLUCOSE METER 2019-12-30 08:47:00 [facility] RRL CRITICAL LABS 2019-12-30 05:53:00 Raine [facility] - (ABG,NA,K,H&H,GLUCOSE) Medical C enter SODIUM NA-STAT LAB 2019-12-30 05:53:00 [facility] POTASSIUM-STAT LAB 2019-12-30 05:53:00 [facility] GLUCOSE-STAT LAB 2019-12-30 05:53:00 [facility] HGB/HCT (H&H) - STAT LAB 2019-12-30 05:53:00 [facility] POCT-GLUCOSE METER 2019-12-30 05:06:00 [facility] CBC (HEMOGRAM ONLY) 2019-12-30 05:05:00 Jane Manley [facility] LACTIC ACID, ARTERIAL 2019-12-30 04:52:00 Haleigh [facility] LACTIC ACID, VENOUS 2019-12-30 03:32:00 Haleigh [facility] BASIC METABOLIC PANEL (7) 2019-12-30 03:30:00 SindhuVerónicaethelrivas I [facility] MAGNESIUM 2019-12-30 03:30:00 [facility] PHOSPHORUS 2019-12-30 03:30:00 Sindhu [facility] BLOOD GAS, VENOUS 2019-12-30 03:30:00 Haleigh [facility] CALCIUM, IONIZED 2019-12-30 03:09:00 Haleigh [facility] OXYGEN SATURATION, MEASURED 2019-12-30 03:09:00 Haleigh [facility] POCT-GLUCOSE METER 2019-12-30 02:15:00 [facility] RRL CRITICAL LABS 2019-12-30 01:02:00 [facility] ([facility]NA,K,H&H,GLUCOSE) [facility] enter SODIUM NA-STAT LAB 2019-12-30 01:02:00 Haleigh [facility] POTASSIUM-STAT LAB 2019-12-30 01:02:00 Haleigh [facility] GLUCOSE-STAT LAB 2019-12-30 01:02:00 [facility] (H&H) - STAT LAB 2019-12-30 01:02:[address] [facility] XR CHEST 1 VIEW 2019-12-30 00:46:00 Nuno Miles [facility] PORTABLE/BEDSIDE [facility] POCT-GLUCOSE METER 2019-12-30 00:01:00 Flavio Weinberg [facility] LACTIC ACID, ARTERIAL 2019-12-29 23:59:00 Haleigh [facility] POCT-GLUCOSE METER 2019-12-29 21:56:[address] [facility] LACTIC ACID, ARTERIAL 2019-12-29 21:54:00 Pat Ricardo [facility] POCT-GLUCOSE METER 2019-12-29 19:50:[address] [facility] ECG 12-LEAD 2019-12-29 18:34:19 Unknown, Hl7 [facility] ECG 12-LEAD 2019-12-29 18:33:39 Unknown, Hl7 [facility] LACTIC ACID, ARTERIAL 2019-12-29 18:15:00 Nuno Miles [facility] BASIC METABOLIC PANEL (7) 2019-12-29 18:15:00 Nuno Miles [facility] MAGNESIUM 2019-12-29 18:15:00 Nuno Miles [facility] CBC (HEMOGRAM ONLY) 2019-12-29 18:15:00 Nuno Miles [facility] BLOOD GAS, ARTERIAL 2019-12-29 18:15:00 Nuno Miles [facility] CALCIUM, IONIZED 2019-12-29 18:15:00 Nuno Miles [facility] POCT-GLUCOSE METER 2019-12-29 18:06:00 [facility] - 2019-12-29 17:52:46 Montrell Reyn[facility] lt [facility] BLOOD GAS, ARTERIAL 2019-12-29 16:16:00 Nuno Miles [facility] SODIUM NA-STAT LAB 2019-12-29 16:16:[address] [facility] POTASSIUM-STAT LAB 2019-12-29 16:16:00 [facility] GLUCOSE-STAT LAB 2019-12-29 16:16:00 [facility] HGB/HCT (H&H) - STAT LAB 2019-12-29 16:16:00 [facility] POCT-GLUCOSE METER 2019-12-29 16:15:00 [facility] PREPARE RBC 2019-12-29 15:34:[address] [facility] RRL CRITICAL LABS 2019-12-29 15:05:00 Sonny Ni [facility] - (ABG,NA,K,H&H,GLUCOSE) Medical C enter SODIUM NA-STAT LAB 2019-12-29 15:05:00 Raine [facility] POTASSIUM-STAT LAB 2019-12-29 15:05:00 Raine [facility] GLUCOSE-STAT LAB 2019-12-29 15:05:00 Raine [facility] HGB/HCT (H&H) - STAT LAB 2019-12-29 15:05:00 Raine [facility] POCT-GLUCOSE METER 2019-12-29 15:04:00 [facility] POCT-GLUCOSE METER 2019-12-29 14:12:00 [facility] XR CHEST 1 VIEW 2019-12-29 13:52:00 [facility] CBC W/PLT COUNT & AUTO 2019-12-29 13:40:00 Sonny Ni [facility] (CELLAVISION MANUAL DIFF) 2019-12-29 13:40:00 Sonny Ni [facility] COMPREHENSIVE METABOLIC 2019-12-29 13:38:00 [facility] HEMOGLOBIN A1C 2019-12-29 13:38:00 [facility] LIPID PANEL 2019-12-29 13:38:00 Bravo [facility] MAGNESIUM 2019-12-29 13:38:00 [facility] PHOSPHORUS 2019-12-29 13:38:00 [facility] LACTIC ACID, ARTERIAL 2019-12-29 13:38:00 [facility] PLATELET AGGREGATION: 2019-12-29 13:37:00 Crow Escobar [facility] FUNCTION SCREEN [facility] APTT 2019-12-29 13:36:00 Lars Cespedes [facility] FIBRINOGEN 2019-12-29 13:36:00 [facility] PT/APTT 2019-12-29 13:36:00 [facility] THROMBOELASTOGRAPH (TEG) 2019-12-29 12:43:00 [facility] OXYGEN SATURATION, MEASURED 2019-12-29 12:37:00 [facility] BLOOD GAS, ARTERIAL 2019-12-29 12:37:00 [facility] CALCIUM, IONIZED 2019-12-29 11:53:25 Roshni Vincent [facility] BLOOD GAS, ARTERIAL 2019-12-29 11:53:25 Roshni Vincent [facility] SODIUM NA-STAT LAB 2019-12-29 11:53:25 Roshni Vincent [facility] POTASSIUM-STAT LAB 2019-12-29 11:53:25 Roshni Vincent [facility] GLUCOSE-STAT LAB 2019-12-29 11:53:25 Roshni Vincent [facility] HGB/HCT (H&H) - STAT LAB 2019-12-29 11:53:25 Roshni Vincent [facility] CALCIUM, IONIZED 2019-12-29 11:24:51 Roshni Vincent [facility] BLOOD GAS, ARTERIAL 2019-12-29 11:24:51 Roshni Vincent [facility] SODIUM NA-STAT LAB 2019-12-29 11:24:51 Roshni Vincent [facility] POTASSIUM-STAT LAB 2019-12-29 11:24:51 Roshni Vincent [facility] GLUCOSE-STAT LAB 2019-12-29 11:24:51 Roshni Vincent [facility] HGB/HCT (H&H) - STAT LAB 2019-12-29 11:24:51 Roshni Vincent [facility] TRANSFUSE LEUKO-REDUCED 2019-12-29 11:19:07 Roshni Vincent [facility] TRANSFUSE LEUKO-REDUCED 2019-12-29 11:19:06 Roshni Vincent [facility] PROTHROMBIN TIME/INR 2019-12-29 11:10:35 Roshni Vincent I [facility] APTT 2019-12-29 11:10:35 Roshni Vincent [facility] FIBRINOGEN 2019-12-29 11:10:35 Roshni Vincent [facility] THROMBOELASTOGRAPH (TEG) 2019-12-29 11:10:35 Roshni Vincent [facility] PLATELET COUNT 2019-12-29 11:10:35 Roshni iVncent [facility] CBC W/PLT COUNT & AUTO 2019-12-29 11:10:00 Jane Manley [facility] POCT-ACT 2019-12-29 11:05:00 Flavio Weinberg [facility] TRANSFUSE LEUKO-REDUCED 2019-12-29 10:52:40 Roshni Vincent [facility] TRANSFUSE LEUKO-REDUCED 2019-12-29 10:52:38 Roshni Vincent [facility] CALCIUM, IONIZED 2019-12-29 10:48:47 Roshni Vincent [facility] BLOOD GAS, ARTERIAL 2019-12-29 10:48:47 Roshni Vincent [facility] SODIUM NA-STAT LAB 2019-12-29 10:48:47 Roshni Vincent [facility] POTASSIUM-STAT LAB 2019-12-29 10:48:47 Roshni Vincent [facility] GLUCOSE-STAT LAB 2019-12-29 10:48:47 Roshni Vincent [facility] HGB/HCT (H&H) - STAT LAB 2019-12-29 10:48:47 Roshni Vincent [facility] POCT-ACT 2019-12-29 10:17:00 Flavio Weinberg [facility] BLOOD GAS, ARTERIAL 2019-12-29 10:16:20 [facility] SODIUM NA-STAT LAB 2019-12-29 10:16:20 [facility] POTASSIUM-STAT LAB 2019-12-29 10:16:20 [facility] GLUCOSE-STAT LAB 2019-12-29 10:16:20 [facility] HGB/HCT (H&H) - STAT LAB 2019-12-29 10:16:[address] [facility] [address] [facility]-ACT 2019-12-29 09:46:00 [facility] BLOOD GAS, ARTERIAL 2019-12-29 09:44:00 [facility] SODIUM NA-STAT LAB 2019-12-29 09:44:00 [facility] Rodri [facility] POTASSIUM-STAT LAB 2019-12-29 09:44:00 [facility] GLUCOSE-STAT LAB 2019-12-29 09:44:00 [facility] HGB/HCT (H&H) - STAT LAB 2019-12-29 09:44:[address] [facility] POCT-ACT 2019-12-29 09:16:00 Torrey [facility] POCT-ACT 2019-12-29 08:30:00 [facility] ANESTHESIA MARY 2019-12-29 08:19:13 Roshni Vincent [facility] CALCIUM, IONIZED 2019-12-29 08:09:13 Roshni Vincent [facility] BLOOD GAS, ARTERIAL 2019-12-29 08:09:13 Roshni Vincent [facility] SODIUM NA-STAT LAB 2019-12-29 08:09:13 Roshni Vincent [facility] POTASSIUM-STAT LAB 2019-12-29 08:09:13 Roshni Vincetn [facility] GLUCOSE-STAT LAB 2019-12-29 08:09:13 Roshni Vincent [facility] HGB/HCT (H&H) - STAT LAB 2019-12-29 08:09:13 Roshni Vincent [facility] BYPASS,AORTO CORONARY 2019-12-29 07:10:00 Rodri Nguyen [facility] ENDOSCOPIC HARVEST,VEIN 2019-12-29 07:10:00 Rodri Nguyen [facility] LIGATION,ATRIAL APPENDAGE 2019-12-29 07:10:[address] [facility] CBC (HEMOGRAM ONLY) 2019-12-29 05:42:00 Lars Cespedes [facility] XR CHEST 1 VIEW 2019-12-29 03:09:00 Rea Moreno [facility] PORTABLE/BEDSIDE [facility] POCT-ACT 2019-12-28 22:53:00 Flavio Weinberg [facility] VEIN MAPPING LEGS BILATERAL 2019-12-28 22:42:00 [facility] CAROTID DOPPLER BILATERAL 2019-12-28 22:20:00 [facility] ABORH, MANUAL 2019-12-28 19:32:00 Jen Platt [facility] TROPONIN I 2019-12-28 19:13:00 [facility] BASIC METABOLIC PANEL (7) 2019-12-28 19:13:00 Flavio Weinberg [facility] I [facility] HEMOGLOBIN A1C 2019-12-28 19:13:00 [facility] PT/APTT 2019-12-28 19:13:00 [facility] LIPID PANEL 2019-12-28 19:13:00 Torrey, [facility] MAGNESIUM 2019-12-28 19:13:00 [facility] CBC (HEMOGRAM ONLY) 2019-12-28 19:13:00 Torrey, [facility] PLATELET AGGREGATION: 2019-12-28 19:13:00 [facility] FUNCTION SCREEN [facility] APTT 2019-12-28 19:13:00 PennybhRoxy redmondeep [facility] TYPE AND SCREEN, AUTOMATED 2019-12-28 19:13:00 [facility], Dextermonica Yun [facility] ECG 12-LEAD 2019-12-28 18:50:31 Unknown, Hl7 Doctor [facility] XR CHEST 1 VIEW 2019-12-28 18:37:00 [facility], [facility] PORTABLE/BEDSIDE [facility] SARS-COV2/RT-PCR ([facility] & REF 2019-12-28 18:32:00 Torrey, [facility] LABS) [facility] Plan of Care Planned Activity Planned Date Details Comments Source Future Scheduled 2022-12-28 Lipid panel [facility] - Test 00:00:00 (procedure) [code = [facility] [id number]] Future Scheduled 2020-04-[address] [facility] - Test 00:00:00 (#1) [code = [facility] INFLUENZA VACCINE (#1)] Future Scheduled [address] [facility] - Test 00:00:00 malignant neoplasm Medical C enter of colon (procedure) [code = 708338417] Encounters Start End Encounter Admission Attending Care Care Encounter Source Date/Time Date/Time Type Type Clinicians Facility Department ID 2020-07-09 2020-07-09 Laboratory Lab, [facility] [id number] 14:56:09 15:16:09 Only Fam Pob I Health 350.1.13.10 [place] 4.2.7.2.686 Professio [phone] [address] [address] 2020-06-22 2020-06-22 Laboratory Lab, [facility] [id number] 18:01:48 18:21:48 Only Fam Pob I Health 350.1.13.10 [place] 4.2.7.2.686 Professio [phone] nal 0[address] 2020-05-31 2020-05-31 Laboratory Lab, [facility] [id number] 15:19:07 15:46:53 Only Fam Pob I Health 350.1.13.10 [place] 4.2.7.2.686 Professio [phone] [place] [address] [address] 2020-05-17 2020-05-17 Laboratory Lab, [facility] [id number] 14:48:04 15:08:04 Only Fam Pob I Health 350.1.13.10 [place] 4.2.7.2.686 Professio [phone] [place] [address] [address] One Results Test Description Test Time Test Comments Results Result Comments Source POC-Glucose meter 2020-01-06 11:27:00 Test Item Value Reference Range Interpretation Comme nts POC-Glucose Meter (test code = 293 mg/dL 70-110 H : TESTED AT [facility] [address] [facility] [address], [address]: Central Station Operator/Techni bushra ID = [id number] for CARLENE BLACKWELL Lab Interpretation (test code = Abnormal 02182-2) [facility] [id number] 11:27:00 Test Item Value Reference Range Interpretation Comments POC-GLUCOSE METER 293 mg/dL 70-110 H : TESTED A T [facility] [address] (BEPolyRemedy) (test code = BERTRA Khan [facility], 1538) [address]: Central Station Operator/Techni bushra ID = [id number] for CARLENE ANAND POCT-GLUCOSE [id number] 07:46:00 Test Item Value Reference Range Interpretation Comments POC-GLUCOSE METER 154 mg/dL 70-110 H : TESTED A T [facility] [address] ([place]miro) (test code = GREG Khan [place], 1538) [address]: Central Station Operator/Techni bushra ID = [id number] for CARLENE ANAND [id number] 06:29:00 Test Item Value Reference Range Interpretation Comments Magnesium (test code = 2.0 mg/dL 1.6-2.6 Speci men 31155-9) slightly hemolyzed SUMEET (test code = SUMEET) Central Station Operator ID - MALIK W Lab Interpretation Normal (test code = 78687-7) [facility] 06:29:00 Test Item Value Reference Range Interpretation Comments Phosphorus (test code 4.0 mg/dL 2.3-4.7 Specim en = 2777-1) slightly hemolyzed SUMEET (test code = SUMEET) Central Station Operator ID - MALIK W Lab Interpretation Normal (test code = 14458-1) [facility]2020-05-29 06:29:00 Test Item Value Reference Range Interpretation Comments MAGNESIUM (BEAKER) 2.0 mg/dL 1.6-2.6 Specimen slightly (test code = 627) hemolyzed Central Station Operator ID - MALIK [id number] 06:29:00 Test Item Value Reference Range Interpretation Comments PHOSPHORUS (BEAKER) 4.0 mg/dL 2.3-4.7 Specimen slightly (test code = 604) hemolyzed Central Station Operator ID Jodi GAN WCBC (Hemogram only)2020-01-06 06:23:00 Test Item Value Reference Range Interpretation Comments WBC (test code = 6690-2) 11.4 3.5- 10.5 K/L H RBC (test code = 789-8) 2.94 4.63- 6.08 M/L L MCHC (test code = 786-4) 29.7 32.3- 36.5 GM/DL L Hematocrit (test code = 4544-3) 26.3 % 40.1-51 L MCV (test code = 787-2) 89.5 fL 79-92.2 MCH (test code = 785-6) 26.5 pg 25.7-32.2 RDW (test code = 788-0) 14.8 % 11.6-14.4 H Platelets (test code = 777-3) 276 150- 450 K/CU MM MPV (test code = 58176-8) 8.7 fL 9.4-12.4 L nRBC (test code = 413) 2 0- 0 /100 WBC H Lab Interpretation (test code = Abnormal 15237-2) [facility]2020-01-06 06:23:00 Test Item Value Reference Range Interpretation Comments WHITE BLOOD CELL COUNT (BEAKER) 11.4 K/ L 3.5-10.5 H (test code = 775) RED BLOOD CELL COUNT (BEAKER) 2.94 M/ L 4.63-6.08 L (test code = 761) HEMOGLOBIN (BEAKER) (test code = 7.8 GM/DL 13.7-17.5 L 410) HEMATOCRIT (BEAKER) (test code = 26.3 % 40.1-51.0 L 411) MEAN CORPUSCULAR VOLUME (BEAKER) 89.5 fL 79.0-92.2 (test code = 753) MEAN CORPUSCULAR HEMOGLOBIN 26.5 pg 25.7-32.2 (BEAKER) (test code = 751) MEAN CORPUSCULAR HEMOGLOBIN CONC 29.7 GM/DL 32.3-36.5 L (BEAKER) (test code = 752) RED CELL DISTRIBUTION WIDTH 14.8 % 11.6-14.4 H (BEAKER) (test code = 412) PLATELET COUNT (BEAKER) (test 276 K/CU MM 150-450 code = 756) MEAN PLATELET VOLUME (BEAKER) 8.7 fL 9.4-12.4 L (test code = 754) NUCLEATED RED BLOOD CELLS 2 /100 WBC 0-0 H (BEAKER) (test code = 413) Calcium, [id number] 05:39:00 Test Item Value Reference Range Interpretation Comments Calcium, Ion (test code = 1993-3) 1.07 mmol/L 1.12-1.27 L pH, Blood (test code = 32753-2) 7.46 Lab Interpretation (test code = Abnormal 97360-3) [facility], [id number] 05:39:00 Test Item Value Reference Range Interpretation Comments CALCIUM IONIZED (BEAKER) (test 1.07 mmol/L 1.12-1.27 L code = 698) PH, BLOOD (BEAKER) (test code = 7.46 1810) POCT-GLUCOSE [id number] 22:28:00 Test Item Value Reference Range Interpretation Comments POC-GLUCOSE METER 161 mg/dL 70-110 H : TESTED A T [facility] [address] (BEAKER) (test code = [facility], 1538) [address]: Central Station Operator/Techni bushra ID = [id number] for BECK PAZ POCT-GLUCOSE [id number] 16:46:00 Test Item Value Reference Range Interpretation Comments POC-GLUCOSE METER 112 mg/dL 70-110 H : TESTED A T [facility] [address] (BEAKER) (test code = [facility], 1538) [address]: Central Station Operator/Techni bushar ID = [id number] for [place] LLIAMS, TYNEKA Sputum Culture + Gram [id number] 13:35:00 Test Item Value Reference Range Interpretation Comments Result (test code = 2+ Normal respiratory 6463-4) dexter present Gram Stain Result 1+ gram variable rods (test code = 1123) [facility]AM [id number] 13:35:00 Test Item Value Reference Range Interpretation Comments CULTURE (BEAKER) 2+ Normal respiratory (test code = 1095) dexter present GRAM STAIN RESULT <1+ WBCs (BEAKER) (test code = 1123) GRAM STAIN RESULT 5-10 epithelial cells (BEAKER) (test code = 45418) GRAM STAIN RESULT 1+ gram positive cocci (BEAKER) (test code = in chains, pairs and 32430) clusters GRAM STAIN RESULT 1+ gram variable rods (BEAKER) (test code = 954461) POCT-GLUCOSE [id number] 11:51:00 Test Item Value Reference Range Interpretation Comments POC-GLUCOSE METER 245 mg/dL 70-110 H : TESTED A T [facility] [address] (BEAKER) (test code = [facility], 1538) [address]: Central Station Operator/Techni bushra ID = [id number] for [place] LLIAMS, TYNEKA Limited 2D [id number] 08:29:00Ejection FractionSLEH ECHO HEARTLAB MKCKESSON CPACSInterface, External Ris In - 01/05/2020 8:29 [facility] (TTE) Demographics Patient Name AGUEDA COOK Date of Study 01/04/2020 Gender Male Visit Number [id number] Race Room Number 1023 Number Date of 1955 Referring Physician Torrey Ponce Age 64 year(s) 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 2D ONLY STUDY HGB 7.6 HCT 24.7 % Parasternal long axis measurements not possible. Difficult to assess segmental wall motion; overall LV systolic function appears normal ( > 55%) based on available views. Global RV systolic function appears normal . No signif icant pericardial effusion is visualized. Signature Findings Left Ventricle Parasternal long axis measurements not possible. Difficult to assess segmental wall motion; overall LV systolic function appears normal ( > 55%) based on available views. Left Atrium LA is incompletely visualized, size based on qualitative assessment. LA size appears normal . Right Ventricle RV pacing wire is visualized . RV is notwell visualized. Global RV systolic function appears normal . Right Atrium The RA is not well visualized. Aortic Valve The aortic valve is not well visualized. Mitral Valve MV is not well visualized. Tricuspid Valve The tricuspid valve isnot well visualized. Pulmonic Valve PV is not well visualized. Pericardium No significant pericardial effusion is visualized. IVC/SVC/PA/PV/Pleural The inferior vena cava is not well visualized.[facility] [id number] 07:33:00 Test Item Value Reference Range Interpretation Comments POC-GLUCOSE METER 256 mg/dL 70-110 H : TESTED A T [facility] [address] (BEAKER) (test code = GREG [place], 1538) [address]: Central Station Operator/Techni bushra ID = [id number] for TAY GARCIA CALCIUM, [id number] 06:25:00 Test Item Value Reference Range Interpretation Comments CALCIUM IONIZED (BEAKER) (test 1.05 mmol/L 1.12-1.27 L code = 698) PH, BLOOD (BEAKER) (test code = 7.49 1810) Basic Metabolic [id number] 04:39:00 Test Item Value Reference Range Interpretation Comments Sodium (test code = 136 meq/L 023-394 1762-2) Potassium (test code = 3.8 meq/L 3.5-5.1 2823-3) Chloride (test code = 99 meq/L 98-107 2075-0) CO2 (test code = 30 meq/L 22-29 H 2028-9) BUN (test code = 24 mg/dL 7-21 H 3094-0) Creatinine (test code 1.06 mg/dL 0.57-1.25 = 2160-0) Glucose (test code = 315 mg/dL 70-105 H 2345-7) Calcium (test code = 8.4 mg/dL 8.4-10.2 19997-1) EGFR (test code = 70 mL/min/1.73 [place] [address]-5) NOT ACCURATE CREATININE CLEARANCE IN PREDICTING GLOMERULAR FILTRATION RATE . ESTIMATED GFR I S NOT APPLICABLE FOR DIALYSIS PATIENTS. SUMEET (test code = SUMEET) Central Station Operator ID - SANIA M Lab Interpretation Abnormal (test code = 83363-7) [facility]OSPH[facility]US2020-05-28 04:39:00 Test Item Value Reference Range Interpretation Comments PHOSPHORUS (BEAKER) (test code = 3.2 mg/dL 2.3-4.7 604) Central Station Operator HEATHER LUI [id number] 04:39:00 Test Item Value Reference Range Interpretation Comments MAGNESIUM (BEAKER) (test code = 1.9 mg/dL 1.6-2.6 627) Central Station Operator HEATHER LUI MBASIC METABOLIC [id number] 04:39:00 Test Item Value Reference Range Interpretation Comments SODIUM (BEAKER) 136 meq/L 136-145 (test code = 381) POTASSIUM (BEAKER) 3.8 meq/L 3.5-5.1 (test code = 379) CHLORIDE (BEAKER) 99 meq/L 98-107 (test code = 382) CO2 (BEAKER) (test 30 meq/L 22-29 H code = 355) BLOOD UREA NITROGEN 24 mg/dL 7-21 H (BEAKER) (test code = 354) CREATININE (BEAKER) 1.06 mg/dL 0.57-1.25 (test code = 358) GLUCOSE RANDOM 315 mg/dL 70-105 H (BEAKER) (test code = 652) CALCIUM (BEAKER) 8.4 mg/dL 8.4-10.2 (test code = 697) EGFR (BEAKER) (test 70 mL/min/1.73 ESTIMA HARINDER GFR IS code = 1092) sq m NOT ACCURATE CREATININE CLEARANCE IN PREDICTING GLOMERULAR FILTRATION RATE . ESTIMATED GFR I S NOT APPLICABLE FOR DIALYSIS PATIEN TS. Central Station Operator HEATHER LUI MCBC (HEMOGRAM ONLY)2020-01-05 04:22:00 Test Item Value Reference Range Interpretation Comments WHITE BLOOD CELL COUNT (BEAKER) 13.8 K/ L 3.5-10.5 H (test code = 775) RED BLOOD CELL COUNT (BEAKER) 2.69 M/ L 4.63-6.08 L (test code = 761) HEMOGLOBIN (BEAKER) (test code = 7.6 GM/DL 13.7-17.5 L 410) HEMATOCRIT (BEAKER) (test code = 23.8 % 40.1-51.0 L 411) MEAN CORPUSCULAR VOLUME (BEAKER) 88.5 fL 79.0-92.2 (test code = 753) MEAN CORPUSCULAR HEMOGLOBIN 28.3 pg 25.7-32.2 (BEAKER) (test code = 751) MEAN CORPUSCULAR HEMOGLOBIN CONC 31.9 GM/DL 32.3-36.5 L (BEAKER) (test code = 752) RED CELL DISTRIBUTION WIDTH 14.4 % 11.6-14.4 (BEAKER) (test code = 412) PLATELET COUNT (BEAKER) (test 235 K/CU MM 150-450 code = 756) MEAN PLATELET VOLUME (BEAKER) 8.7 fL 9.4-12.4 L (test code = 754) NUCLEATED RED BLOOD CELLS 2 /100 WBC 0-0 H (BEAKER) (test code = 413) POCT-GLUCOSE [id number] 21:09:00 Test Item Value Reference Range Interpretation Comments POC-GLUCOSE METER 333 mg/dL 70-110 H : TESTED A T [facility] (BEAKER) (test code = GREG Khan [facility], 1538) [address]: Central Station Operator/Techni bushra ID = [id number] for Ritika feliz Dana BASIC METABOLIC [id number] 17:36:00 Test Item Value Reference Range Interpretation Comments SODIUM (BEAKER) 137 meq/L 136-145 (test code = 381) POTASSIUM (BEAKER) 4.0 meq/L 3.5-5.1 (test code = 379) CHLORIDE (BEAKER) 98 meq/L 98-107 (test code = 382) CO2 (BEAKER) (test 31 meq/L 22-29 H code = 355) BLOOD UREA NITROGEN 25 mg/dL 7-21 H (BEAKER) (test code = 354) CREATININE (BEAKER) 1.23 mg/dL 0.57-1.25 (test code = 358) GLUCOSE RANDOM 284 mg/dL 70-105 H (BEAKER) (test code = 652) CALCIUM (BEAKER) 8.7 mg/dL 8.4-10.2 (test code = 697) EGFR (BEAKER) (test 59 mL/min/1.73 ESTIMA HARINDER GFR IS code = 1092) sq m NOT ACCURATE CREATININE CLEARANCE IN PREDICTING GLOMERULAR FILTRATION RATE . ESTIMATED GFR I S NOT APPLICABLE FOR DIALYSIS PATIEN TS. Central Station Operator ID - BSPOCT-GLUCOSE [id number] 17:13:00 Test Item Value Reference Range Interpretation Comments POC-GLUCOSE METER 254 mg/dL 70-110 H : TESTED A T [facility] [address] (BEAKER) (test code = [facility], 1538) [address]: Central Station Operator/Techni bushra ID = [id number] for SHAUN MIKE POCT-GLUCOSE [id number] 12:25:00 Test Item Value Reference Range Interpretation Comments POC-GLUCOSE METER 271 mg/dL 70-110 H : TESTED A T [facility] [address] (BEAKER) (test code = [facility], 1538) 34465: Central Station Operator/Techni bushra ID = [id number] for GERHARD URBINA POCT-GLUCOSE [id number] 08:24:00 Test Item Value Reference Range Interpretation Comments POC-GLUCOSE METER 250 mg/dL 70-110 H : TESTED A T [facility] [address] (BEAKER) (test code = [facility], 1538) 59443: Central Station Operator/Techni bushra ID = [id number] for Andrea Pizarro [id number] 06:40:00 Test Item Value Reference Range Interpretation Comments PHOSPHORUS (BEAKER) (test code = 3.3 mg/dL 2.3-4.7 604) Central Station Operator ID - FILIPPO [id number] 06:40:00 Test Item Value Reference Range Interpretation Comments MAGNESIUM (BEAKER) (test code = 2.0 mg/dL 1.6-2.6 627) Central Station Operator ID - FILIPPO LBASIC METABOLIC [id number] 06:40:00 Test Item Value Reference Range Interpretation Comments SODIUM (BEAKER) 138 meq/L 136-145 (test code = 381) POTASSIUM (BEAKER) 3.6 meq/L 3.5-5.1 (test code = 379) CHLORIDE (BEAKER) 100 meq/L 98-107 (test code = 382) CO2 (BEAKER) (test 31 meq/L 22-29 H code = 355) BLOOD UREA NITROGEN 25 mg/dL 7-21 H (BEAKER) (test code = 354) CREATININE (BEAKER) 1.12 mg/dL 0.57-1.25 (test code = 358) GLUCOSE RANDOM 277 mg/dL 70-105 H (BEAKER) (test code = 652) CALCIUM (BEAKER) 8.2 mg/dL 8.4-10.2 L (test code = 697) EGFR (BEAKER) (test 66 mL/min/1.73 ESTIMA HARINDER GFR IS code = 1092) sq m NOT ACCURATE CREATININE CLEARANCE IN PREDICTING GLOMERULAR FILTRATION RATE . ESTIMATED GFR I S NOT APPLICABLE FOR DIALYSIS PATIEN TS. Central Station Operator ID - PIAYA LCBC (HEMOGRAM ONLY)2020-01-04 06:07:00 Test Item Value Reference Range Interpretation Comments WHITE BLOOD CELL COUNT (BEAKER) 12.7 K/ L 3.5-10.5 H (test code = 775) RED BLOOD CELL COUNT (BEAKER) 2.70 M/ L 4.63-6.08 L (test code = 761) HEMOGLOBIN (BEAKER) (test code = 7.6 GM/DL 13.7-17.5 L 410) HEMATOCRIT (BEAKER) (test code = 24.7 % 40.1-51.0 L 411) MEAN CORPUSCULAR VOLUME (BEAKER) 91.5 fL 79.0-92.2 (test code = 753) MEAN CORPUSCULAR HEMOGLOBIN 28.1 pg 25.7-32.2 (BEAKER) (test code = 751) MEAN CORPUSCULAR HEMOGLOBIN CONC 30.8 GM/DL 32.3-36.5 L (BEAKER) (test code = 752) RED CELL DISTRIBUTION WIDTH 14.5 % 11.6-14.4 H (BEAKER) (test code = 412) PLATELET COUNT (BEAKER) (test 248 K/CU MM 150-450 code = 756) MEAN PLATELET VOLUME (BEAKER) 9.0 fL 9.4-12.4 L (test code = 754) NUCLEATED RED BLOOD CELLS 2 /100 WBC 0-0 H (BEAKER) (test code = 413) CALCIUM, [id number] 05:55:00 Test Item Value Reference Range Interpretation Comments CALCIUM IONIZED (BEAKER) (test 1.03 mmol/L 1.12-1.27 L code = 698) PH, BLOOD (BEAKER) (test code = 7.46 1810) RAD, CHEST, 1 VIEW, NON [id number] 05:36:00Reason for exam:->s/p ACB, fluid overloadShould this be performed at the bedside?->YesFINAL REPORT CLINICAL INDICATION: Postop Comparison: 01/03/2020 The cardiomediastinal contours are stable. Central pulmonary vascular congestion and bilateral parenchymal opacities are partially improved, suggesting improving pulmonary edema. There is no pneumothorax or significant pleural collection. A right IJ CVC has been removed. Signed: Evie Alvaresort Verified Date/ Time: 01/04/2020 05:36:24 XR chest 1 view portable / [id number] 05:36:00 Interface, External Ris In - 01/04/2020 5:38 AM CDTFINAL REPORT CLINICAL INDICATION: Postop Comparison: 01/03/2020 The cardiomediastinal contours are stable. Central pulmonary vascular congestion and bilateral parenchymal opacities are partially improved, suggesting improving pu lmonary edema. There is no pneumothorax or significant pleural collection. A right IJ CVC has been removed. Signed: Evie Alvares Verified Date/Time: 01/04/2020 05:36:24 [facility] 2020[facility]01[facility]03 22:09:00 Test Item Value Reference Range Interpretation Comments POC-GLUCOSE METER 260 mg/dL 70-110 H : TESTED A T [facility] 6720 (BEAKER) (test code = GREG Khan [facility], 1538) [address]: Central Station Operator/Techni bushra ID = [id number] for Dana Morley BASIC METABOLIC [id number] 17:47:00 Test Item Value Reference Range Interpretation Comments SODIUM (BEAKER) 138 meq/L 136-145 (test code = 381) POTASSIUM (BEAKER) 3.8 meq/L 3.5-5.1 (test code = 379) CHLORIDE (BEAKER) 99 meq/L 98-107 (test code = 382) CO2 (BEAKER) (test 34 meq/L 22-29 H code = 355) BLOOD UREA NITROGEN 25 mg/dL 7-21 H (BEAKER) (test code = 354) CREATININE (BEAKER) 1.11 mg/dL 0.57-1.25 (test code = 358) GLUCOSE RANDOM 280 mg/dL 70-105 H (BEAKER) (test code = 652) CALCIUM (BEAKER) 8.2 mg/dL 8.4-10.2 L (test code = 697) EGFR (BEAKER) (test 67 mL/min/1.73 ESTIMA HARINDER GFR IS code = 1092) sq m NOT ACCURATE CREATININE CLEARANCE IN PREDICTING GLOMERULAR FILTRATION RATE . ESTIMATED GFR I S NOT APPLICABLE FOR DIALYSIS PATIEN TS. Central Station Operator ID - VIK EPOCT-GLUCOSE [id number] 11:45:00 Test Item Value Reference Range Interpretation Comments POC-GLUCOSE METER 276 mg/dL 70-110 H : TESTED A T [facility] 6720 (BEAKER) (test code = [facility], 1538) 05416: Central Station Operator/Techni bushra ID = [id number] for HEATHER DANIEL POCT-GLUCOSE [id number] 07:39:00 Test Item Value Reference Range Interpretation Comments POC-GLUCOSE METER 219 mg/dL 70-110 H : TESTED A T [facility] 6720 (BEAKER) (test code = [facility], 1538) 12033: Central Station Operator/Techni bushra ID = [id number] for Kayt Morel CALCIUM, [id number] 03:58:00 Test Item Value Reference Range Interpretation Comments CALCIUM IONIZED (BEAKER) (test 1.04 mmol/L 1.12-1.27 L code = 698) PH, BLOOD (BEAKER) (test code = 7.41 1810) BASIC METABOLIC [id number] 03:57:00 Test Item Value Reference Range Interpretation Comments SODIUM (BEAKER) 137 meq/L 136-145 (test code = 381) POTASSIUM (BEAKER) 3.7 meq/L 3.5-5.1 (test code = 379) CHLORIDE (BEAKER) 103 meq/L 98-107 (test code = 382) CO2 (BEAKER) (test 31 meq/L 22-29 H code = 355) BLOOD UREA NITROGEN 24 mg/dL 7-21 H (BEAKER) (test code = 354) CREATININE (BEAKER) 0.97 mg/dL 0.57-1.25 (test code = 358) GLUCOSE RANDOM 224 mg/dL 70-105 H (BEAKER) (test code = 652) CALCIUM (BEAKER) 7.8 mg/dL 8.4-10.2 L (test code = 697) EGFR (BEAKER) (test 78 mL/min/1.73 ESTIMA HARINDER GFR IS code = 1092) sq m NOT ACCURATE CREATININE CLEARANCE IN PREDICTING GLOMERULAR FILTRATION RATE . ESTIMATED GFR I S NOT APPLICABLE FOR DIALYSIS PATIEN TS. Central Station Operator ID - LAHepatic function [id number] 03:53:00 Test Item Value Reference Range Interpretation Comments Protein, Total (test code = 5.7 6.0- 8.3 gm/dL L 2885-2) Albumin (test code = 2.8 g/dL 3.5-5 L 46569-5) Total Bilirubin (test code = 0.7 mg/dL 0.2-1.2 1974-2) Bilirubin, Direct (test code 0.4 mg/dL 0.1-0.5 = 1968-7) Alkaline Phosphatase (test 63 U/L 40-150 code = 6768-6) AST (test code = 1920-8) 35 U/L 5-34 H ALT (test code = 1742-6) 34 U/L 6-55 SUMEET (test code = SUMEET) Central Station Operator ID - LA Lab Interpretation (test Abnormal code = 07876-5) [facility] Angeles[facility]ylase2020-[facility] 03:53:00 Test Item Value Reference Range Interpretation Comments Amylase (test code = 1798-8) 183 U/L 25-125 H SUMEET (test code = SUMEET) Central Station Operator ID - LA Lab Interpretation (test Abnormal code = 16062-5) [facility] Angeles[facility]ase2020-05-26 03:53:00 Test Item Value Reference Range Interpretation Comments Lipase (test code = 3040-3) 454 U/L 8-78 H SUMEET (test code = SUMEET) Central Station Operator ID - LA Lab Interpretation (test Abnormal code = 53131-5) [facility] AngelesPHOSPHORUS2020-05-26 03:53:00 Test Item Value Reference Range Interpretation Comments PHOSPHORUS (BEAKER) (test code = 3.3 mg/dL 2.3-4.7 604) Central Station Operator ID - [id number] 03:53:00 Test Item Value Reference Range Interpretation Comments MAGNESIUM (BEAKER) (test code = 1.9 mg/dL 1.6-2.6 627) Central Station Operator ID - LAHEPATIC FUNCTION [id number] 03:53:00 Test Item Value Reference Range Interpretation Comments TOTAL PROTEIN (BEAKER) (test code = 5.7 gm/dL 6.0-8.3 L 770) ALBUMIN (BEAKER) (test code = 1145) 2.8 g/dL 3.5-5.0 L BILIRUBIN TOTAL (BEAKER) (test code 0.7 mg/dL 0.2-1.2 = 377) BILIRUBIN DIRECT (BEAKER) (test 0.4 mg/dL 0.1-0.5 code = 706) ALKALINE PHOSPHATASE (BEAKER) (test 63 U/L 40-150 code = 346) AST (SGOT) (BEAKER) (test code = 35 U/L 5-34 H 353) ALT (SGPT) (BEAKER) (test code = 34 U/L 6-55 347) Central Station Operator ID - [id number] 03:53:00 Test Item Value Reference Range Interpretation Comments AMYLASE (BEAKER) (test code = 349) 183 U/L 25-125 H Central Station Operator ID - [id number] 03:53:00 Test Item Value Reference Range Interpretation Comments LIPASE (BEAKER) (test code = 749) 454 U/L 8-78 H Central Station Operator ID - LACBC (HEMOGRAM ONLY)2020-01-03 03:38:00 Test Item Value Reference Range Interpretation Comments WHITE BLOOD CELL COUNT (BEAKER) 13.7 K/ L 3.5-10.5 H (test code = 775) RED BLOOD CELL COUNT (BEAKER) 2.57 M/ L 4.63-6.08 L (test code = 761) HEMOGLOBIN (BEAKER) (test code = 7.4 GM/DL 13.7-17.5 L 410) HEMATOCRIT (BEAKER) (test code = 23.5 % 40.1-51.0 L 411) MEAN CORPUSCULAR VOLUME (BEAKER) 91.4 fL 79.0-92.2 (test code = 753) MEAN CORPUSCULAR HEMOGLOBIN 28.8 pg 25.7-32.2 (BEAKER) (test code = 751) MEAN CORPUSCULAR HEMOGLOBIN CONC 31.5 GM/DL 32.3-36.5 L (BEAKER) (test code = 752) RED CELL DISTRIBUTION WIDTH 14.6 % 11.6-14.4 H (BEAKER) (test code = 412) PLATELET COUNT (BEAKER) (test 216 K/CU MM 150-450 code = 756) MEAN PLATELET VOLUME (BEAKER) 8.9 fL 9.4-12.4 L (test code = 754) NUCLEATED RED BLOOD CELLS 3 /100 WBC 0-0 H (BEAKER) (test code = 413) RAD, CHEST, 1 VIEW, NON [id number] 03:06:00Reason for exam:->s/p ACB, fluid overloadShould this be performed at the bedside?->YesFINAL REPORT RAD, CHEST, 1 VIEW, NON DEPT INDICATION: s/p ACB, fluid overloadCOMPARISON: Prior day's exam FINDINGS: Portable frontal view of the chest. IMPRESSION: Support Lines: Stable right IJ central venous catheter. Lungs and pleura: No significant change in bilateral venous congestion and interstitial edema. No interval consolidation. No pneumothorax.Heart and mediastinum: Stable contours. Additional findings: None. Signed: Sen Joshi Verified Date/Time: 01/03/2020 03:06:33 POCT-GLUCOSE [id number] 22:56:00 Test Item Value Reference Range Interpretation Comments POC-GLUCOSE METER 224 mg/dL 70-110 H : TESTED A T [facility] 6720 (BEAKER) (test code = GREG Khan [facility], 1538) 21788: Central Station Operator/Techni bushra ID = [id number] for DO MINGUEZ, SHAKA [id number] 18:17:00 Test Item Value Reference Range Interpretation Comments Potassium (test code = 4.0 meq/L 3.5-5.1 Speci men 2823-3) slightly hemolyzed SUMEET (test code = SUMEET) Central Station Operator ID - NTP Lab Interpretation Normal (test code = 27624-4) [facility] AngelesMAGNESIUM2020-05-25 18:17:00 Test Item Value Reference Range Interpretation Comments MAGNESIUM (BEAKER) 2.1 mg/dL 1.6-2.6 Specimen slightly (test code = 627) hemolyzed Central Station Operator ID - [id number] 18:17:00 Test Item Value Reference Range Interpretation Comments POTASSIUM (BEAKER) 4.0 meq/L 3.5-5.1 Specimen slightly (test code = 379) hemolyzed Central Station Operator ID - NTPU/S, ABDOMINAL, [id number] 17:44:00Reason for exam:- >abdomoanl pain, increased amylase and lipaseShould this be performed at the bedside?->YesFINAL REPORT TECHNIQUE: Grayscale ultrasound of the abdomen. INDICATION: abdominal pain, increased amylase and lipase. COMPARISON: None. FINDINGS: MIDLINE VASCULATURE: The aortaand inferior vena cava were not well evaluated due to the shadowing from the fatty infiltration of the liver. LIVER: The liver is hyperechoic. Smooth liver contour. No focal lesions. The deep liver is suboptimally evaluated due to the shadowing from the fatty infiltration. The main portal vein is patent and measures 0.7 cm in diameter. BILIARY:Gallbladder: Prior cholecystectomy.The common bile duct was unable to be visualized. PANCREAS: Not visualized due to overlying bowel gas. SPLEEN: The spleen is enlarged at 14 cm in length. PERITONEUM: No free fluid. KIDNEYS: Normal in size bilaterally. No hydr onephrosis. No sonographically evident solid mass lesion. There is likely a prominent renal. In the right interpolar kidney which measures 1 cm. Alternatively, this may be a small simple cyst. Additional, similar-appearing region measures 1 cm in the left upper pole. No routine follow-up imaging is rec ommended. Small left pleural effusion. IMPRESSION: 1.Prior cholecystomy. The common bile duct was unable to be visualized. 2.The pancreas was not visualized due to overlying bowel gas. 3.Diffuse fatty infiltration of the liver with mild splenomegaly. 4.Small left pleural effusion. Signed: Harish Segovia Verified Date/Time: 01/02/2020 17:44:05 Reading Location: [address] Body Reading Room US abdomen [id number] 17:44:00Interface, External Ris In - 01/02/2020 5:46 PM CDTFINAL REPORT TECHNIQUE: Grayscale ultrasound of the abdomen. INDICATION: abdominal pain, increased amylase and lipase. COMPARISON: None. FINDINGS: MIDLINE VASCULATURE: The aorta and inferior vena cava were not well evaluated due to the shadowing from the fatty infiltration of the liver. LIVER: The liver is hyperechoic. Smoothliver contour. No focal lesions. The deep liver is suboptimally evaluated due to the shadowing from the fatty infiltration. The main portal vein is patent and measures 0.7 cm in diameter. BILIARY:Gallbladder: Prior cholecystectomy.The common bile duct was unable to be visualized. PANCREAS: Not visualized due to overlying bowel gas. SPLEEN: The spleen is enlarged at 14 cm in length. PERITONEUM: No free fluid. KIDNEYS: Normal in size bilaterally. No hydronephrosis. No sonographically evident solid mass lesion. There is likely a prominent renal. In the right interpolar kidney which measures 1 cm. Alternatively, this may be a small simple cyst. Additional, similar-appearing region measures 1 cm in theleft upper pole. No routine follow-up imaging is recommended. Small left pleural effusion. IMPRESSION: 1.Prior cholecystomy. The common bile duct was unable to be visualized. 2.The pancreas was not visualized due to overlying bowel gas. 3.Diffuse fatty infiltration of the liver with mild splenomegaly.4.Small left pleural effusion. Signed: Harish Segoviaort Verified Date/Time: 01/02/2020 17:44:05 Reading Location: [facility] C013Y CT Body Reading Room [facility]CT[facility] [id number] 17:37:00 Test Item Value Reference Range Interpretation Comments POC-GLUCOSE METER 251 mg/dL 70-110 H : TESTED A T [facility] 6720 (PORFIRIOMARTY) (test code = [facility], 1538) 87074: Central Station Operator/Techni bushra ID = [id number] for [facility] HEATHER MANN ECG 12 [id number] 17:08:00Interface, External Ris In - 01/02/2020 5:08 PM CDTVentricular Rate 136 BPMAtrial Rate 96 BPMQRS Duration 74 msQ-T Interval 342 msQTC Calculation(Bazett) 514 msR [place] 26 degreesT [place] 13 degreesAtrial fibrillation with rapid ventricular responseAnteroapical infarct (cited on or before 28-DEC-2019)Diffuse mild ST elevation with nonspecific T changes consider resolving phase of pericarditsAbnormal ECGWhen compared with ECG of 31-DEC-2019 05:03,No significant changesConfirmed by MD LEÓN, ERIC ([id number]) on 01/02/2020 5:07:54 [facility] CenterProcalcitonin2020-05-25 14:12:00 Test Item Value Reference Range Interpretation Comments Procalcitonin (test code = 0.26 ng/mL <0.05 H 74376-6) SUMEET (test code = SUMEET) SEPSIS RISK (ng/mL)Low: 0.05-0.50Intermedi ate: 0.51-2.00High: >=2.01 Lab Interpretation (test Abnormal code = 07357-9) [facility] AngelesPROCALCITONIN2020-05-25 14:12:00 Test Item Value Reference Range Interpretation Comments PROCALCITONIN (BEAKER) (test code 0.26 ng/mL <0.05 H = 3036) SEPSIS RISK (ng/mL)Low: 0.05-0.50Intermediate: 0.51-2.00High: >=[id number] 14:01:00 Test Item Value Reference Range Interpretation Comments LIPASE (BEAKER) (test code = 749) 508 U/L 8-78 H Central Station Operator ID - [id number] 14:01:00 Test Item Value Reference Range Interpretation Comments AMYLASE (BEAKER) (test 177 U/L 25-125 H Speci men slightly code = 349) hemolyzed Central Station Operator ID - NTPHEPATIC FUNCTION [id number] 14:01:00 Test Item Value Reference Range Interpretation Comments TOTAL PROTEIN (BEAKER) 6.2 gm/dL 6.0-8.3 Speci men slightly (test code = 770) hemolyzed ALBUMIN (BEAKER) (test 2.9 g/dL 3.5-5.0 L Speci men slightly code = 1145) hemolyzed BILIRUBIN TOTAL 0.6 mg/dL 0.2-1.2 Specimen sli ghtly (BEAKER) (test code = hemoly zed 377) BILIRUBIN DIRECT 0.3 mg/dL 0.1-0.5 Specimen sl ightly (BEAKER) (test code = hemoly zed 706) ALKALINE PHOSPHATASE 69 U/L 40-150 (BEAKER) (test code = 346) AST (SGOT) (BEAKER) 46 U/L 5-34 H Specimen slightly (test code = 353) hemolyzed ALT (SGPT) (BEAKER) 38 U/L 6-55 Specimen slightly (test code = 347) hemolyzed Central Station Operator ID - [id number] 13:46:00 Test Item Value Reference Range Interpretation Comments D-Dimer, Quant (test code 2.57 <0.50 MG/L FEU H = 41944-2) SUMEET (test code = SUMEET) Intended Use: The D-Dimer Assay can be used to aid in the diagnosis of Deep Vein Thrombosis (DVT) and Pulmonary Embolism Disease (PED).In patients with low pre-test probability, various studies concerning STA Liatest D-dimer test have reported that with a cutoff value of 0.50 MG/L FEU, the Negative Predictive Value (NPV) regarding the exclusion of thrombosis is within 95-100% range. Lab Interpretation (test Abnormal code = 75596-5) [facility] AngelesD-[id number] 13:46:00 Test Item Value Reference Range Interpretation Comments D-DIMER QUANTITATIVE (BEAKER) 2.57 MG/L FEU <0.50 H (test code = 671) Intended Use: The D-Dimer Assay can be used to aid in the diagnosis of Deep Vein Thrombosis (DVT) and Pulmonary Embolism Disease (PED).In patients with low pre- test probability, various studies concerning STA Liatest D-dimer test have reported that with a cutoff value of 0.50 MG/L FEU, the Negative Predictive Value (NPV) regarding the exclusion of thrombosis is within 95-100% range.CBC (HEMOGRAM ONLY)2020-01-02 13:39:00 Test Item Value Reference Range Interpretation Comments WHITE BLOOD CELL COUNT (BEAKER) 15.2 K/ L 3.5-10.5 H (test code = 775) RED BLOOD CELL COUNT (BEAKER) 2.79 M/ L 4.63-6.08 L (test code = 761) HEMOGLOBIN (BEAKER) (test code = 8.1 GM/DL 13.7-17.5 L 410) HEMATOCRIT (BEAKER) (test code = 25.5 % 40.1-51.0 L 411) MEAN CORPUSCULAR VOLUME (BEAKER) 91.4 fL 79.0-92.2 (test code = 753) MEAN CORPUSCULAR HEMOGLOBIN 29.0 pg 25.7-32.2 (BEAKER) (test code = 751) MEAN CORPUSCULAR HEMOGLOBIN CONC 31.8 GM/DL 32.3-36.5 L (BEAKER) (test code = 752) RED CELL DISTRIBUTION WIDTH 14.8 % 11.6-14.4 H (BEAKER) (test code = 412) PLATELET COUNT (BEAKER) (test 246 K/CU MM 150-450 code = 756) MEAN PLATELET VOLUME (BEAKER) 9.4 fL 9.4-12.4 (test code = 754) NUCLEATED RED BLOOD CELLS 3 /100 WBC 0-0 H (BEAKER) (test code = 413) Urinalysis w/Microscopic + Reflex to [id number] 11:53:00 Test Item Value Reference Range Interpretation Comments Color, UA (test code = Yellow 5778-6) Clarity, UA (test code = Clear 5767-9) Specific [place], UA (test 1.023 1.001-1.035 code = 5811-5) pH, UA (test code = 5.5 5.0-8.0 5803-2) Protein, UA (test code = 20 mg/dL Negative A 12134-6) Glucose, UA (test code = >1000 mg/dL Negative A 365) Ketones, UA (test code = Negative Negative 2514-8) Bilirubin, UA (test code = Negative Negative 40158-6) Blood, UA (test code = Trace Negative A 54588-3) Nitrite, UA (test code = Negative Negative 5802-4) Leukocytes, UA (test code Negative Negative = 5799-2) Urobilinogen, UA (test 0.2 mg/dL 0.2-1 code = 61954-2) RBC, UA (test code = 8 /HPF 06768-3) WBC, UA (test code = 6 /HPF 5821-4) Mucus (test code = 8247-9) Rare Squam Epithel, UA (test 4 /HPF code = 01824-8) Specimen Source (test code = 2795) SUMEET (test code = SUMEET) Central Station Operator ID - [auto]Central Station Operator ID - tech Lab Interpretation (test Abnormal code = 97900-9) [facility] AngelesURINALYSIS W/ REFLEX URINE [id number] 11:53:00 Test Item Value Reference Range Interpretation Comments COLOR (BEAKER) (test code = 470) Yellow CLARITY (BEAKER) (test code = Clear 469) SPECIFIC GRAVITY UA (BEAKER) 1.023 1.001-1.035 (test code = 468) PH UA (BEAKER) (test code = 467) 5.5 5.0-8.0 PROTEIN UA (BEAKER) (test code = 20 mg/dL Negative A 464) GLUCOSE UA (BEAKER) (test code = >1000 mg/dL Negative A 365) KETONES UA (BEAKER) (test code = Negative Negative 371) BILIRUBIN UA (BEAKER) (test code Negative Negative = 462) BLOOD UA (BEAKER) (test code = Trace Negative A 461) NITRITE UA (BEAKER) (test code = Negative Negative 465) LEUKOCYTE ESTERASE UA (BEAKER) Negative Negative (test code = 466) UROBILINOGEN UA (BEAKER) (test 0.2 mg/dL 0.2-1.0 code = 463) RBC UA (BEAKER) (test code = 519) 8 /HPF WBC UA (BEAKER) (test code = 520) 6 /HPF MUCUS (BEAKER) (test code = 1574) Rare SQUAMOUS EPITHELIAL (BEAKER) 4 /HPF (test code = 516) SOURCE(BEAKER) (test code = 2795) Central Station Operator ID - [auto]Central Station Operator ID - techPOCT-GLUCOSE [id number] 11:47:00 Test Item Value Reference Range Interpretation Comments POC-GLUCOSE METER 243 mg/dL 70-110 H : [facility] (BEAKER) (test code = [facility], 1538) 37623: Central Station Operator/Techni bushra ID = [id number] for ANYSHIRLEY POCT-GLUCOSE [id number] 07:33:00 Test Item Value Reference Range Interpretation Comments POC-GLUCOSE METER 263 mg/dL 70-110 H : TESTED A T [facility] 67[facility] (BEAKER) (test code = [facility], 1538) 11080: Central Station Operator/Techni bushra ID = [id number] for HEATHER DANIEL CALCIUM, [id number] 05:08:00 Test Item Value Reference Range Interpretation Comments CALCIUM IONIZED (BEAKER) (test 1.06 mmol/L 1.12-1.27 L code = 698) PH, BLOOD (BEAKER) (test code = 7.43 1810) Oxygen saturation, [id number] 04:46:00 Test Item Value Reference Range Interpretation Comments O2 Saturation (Measured) (test code = 64.2 % 51467-6) [facility] AngelesOXYGEN SATURATION, [id number] 04:46:00 Test Item Value Reference Range Interpretation Comments O2 SATURATION (MEASURED) (BEAKER) 64.2 % (test code = 1455) [id number] 03:48:00 Test Item Value Reference Range Interpretation Comments PHOSPHORUS (BEAKER) (test code = 2.8 mg/dL 2.3-4.7 604) Central Station Operator ID - SANIA [id number] 03:48:00 Test Item Value Reference Range Interpretation Comments MAGNESIUM (BEAKER) (test code = 2.0 mg/dL 1.6-2.6 627) Central Station Operator ID - SANIA MBASIC METABOLIC [id number] 03:48:00 Test Item Value Reference Range Interpretation Comments SODIUM (BEAKER) 140 meq/L 136-145 (test code = 381) POTASSIUM (BEAKER) 3.9 meq/L 3.5-5.1 (test code = 379) CHLORIDE (BEAKER) 105 meq/L 98-107 (test code = 382) CO2 (BEAKER) (test 28 meq/L 22-29 code = 355) BLOOD UREA NITROGEN 23 mg/dL 7-21 H (BEAKER) (test code = 354) CREATININE (BEAKER) 1.06 mg/dL 0.57-1.25 (test code = 358) GLUCOSE RANDOM 220 mg/dL 70-105 H (BEAKER) (test code = 652) CALCIUM (BEAKER) 8.0 mg/dL 8.4-10.2 L (test code = 697) EGFR (BEAKER) (test 70 mL/min/1.73 ESTIMA HARINDER GFR IS code = 1092) sq m NOT ACCURATE CREATININE CLEARANCE IN PREDICTING GLOMERULAR FILTRATION RATE . ESTIMATED GFR I S NOT APPLICABLE FOR DIALYSIS PATIEN TS. Central Station Operator ID - SANIA MCBC (HEMOGRAM ONLY)2020-01-02 03:36:00 Test Item Value Reference Range Interpretation Comments WHITE BLOOD CELL COUNT (BEAKER) 16.0 K/ L 3.5-10.5 H (test code = 775) RED BLOOD CELL COUNT (BEAKER) 2.71 M/ L 4.63-6.08 L (test code = 761) HEMOGLOBIN (BEAKER) (test code = 7.7 GM/DL 13.7-17.5 L 410) HEMATOCRIT (BEAKER) (test code = 24.2 % 40.1-51.0 L 411) MEAN CORPUSCULAR VOLUME (BEAKER) 89.3 fL 79.0-92.2 (test code = 753) MEAN CORPUSCULAR HEMOGLOBIN 28.4 pg 25.7-32.2 (BEAKER) (test code = 751) MEAN CORPUSCULAR HEMOGLOBIN CONC 31.8 GM/DL 32.3-36.5 L (BEAKER) (test code = 752) RED CELL DISTRIBUTION WIDTH 14.9 % 11.6-14.4 H (BEAKER) (test code = 412) PLATELET COUNT (BEAKER) (test 224 K/CU MM 150-450 code = 756) MEAN PLATELET VOLUME (BEAKER) 8.9 fL 9.4-12.4 L (test code = 754) NUCLEATED RED BLOOD CELLS 2 /100 WBC 0-0 H (BEAKER) (test code = 413) RAD, CHEST, 1 VIEW, NON [id number] 02:20:00Reason for exam:->s/p ACB, fluid overloadShould this be performed at the bedside?->YesFINAL REPORT CLINICAL INDICATION: Postop Comparison: 01/01/2020 The cardiomediastinal contours are stable. The lung volumes remain low. Central pulmonary vascular prominence and bilateral parenchymal opacities are unchanged. There is no pneumothorax. A right IJ CVC remains in place. Signed: Evie Alvares MDReport Verified Date/Time: 01/02/2020 02:20:36 Electronically sign ed by: EVIE ALVARES M.D. on 01/02/2020 02:20 AMSPUTUM CULTURE + GRAM STAIN 2020-01-02 00:39:00 Test Item Value Reference Range Interpretation Comments CULTURE (BEAKER) Oropharyngeal (test code = 1095) contamination, specimen rejected. Recollect requested. GRAM STAIN RESULT 1+ WBCs (BEAKER) (test code = 1123) GRAM STAIN RESULT >25 epithelial cells (BEAKER) (test code = 19098) GRAM STAIN RESULT 4+ gram positive cocci in (BEAKER) (test code chains, pairs and = 59964) clusters POCT-GLUCOSE [id number] 22:45:00 Test Item Value Reference Range Interpretation Comments POC-GLUCOSE METER 237 mg/dL 70-110 H : TESTED A T [facility] 6720 (BEAKER) (test code = [facility], 1538) 19861: Central Station Operator/Techni bushra ID = [id number] for AMBER CHU [id number] 17:09:00 Test Item Value Reference Range Interpretation Comments POTASSIUM (BEAKER) (test code = 4.0 meq/L 3.5-5.1 379) Central Station Operator ID - NTPEvery 8 hours PRN for Creatinine greater than or equal to 2 mg/dL.[id number] 17:09:00 Test Item Value Reference Range Interpretation Comments MAGNESIUM (BEAKER) (test code = 2.2 mg/dL 1.6-2.6 627) Central Station Operator ID - NTPEvery 8 hours PRN for Creatinine greater than or equal to 2 mg/dL.2D Echo W/Doppler(CW/PW/Color)2020-01-01 17:08:52Ejection FractionSLEH ECHO HEARTLAB MKCKESSON CPACSInterface, External Ris In - 01/01/2020 5:09 PM C DTTransthoracic Echocardiography Report (TTE) Demographics Patient Name AGUDEA COOK Date of Study 01/01/2020 Gender Male Visit Number [id number] Race Room Number C825 Number Date of 1955 Referring Physician Mesfin Johnson Age 64 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 Amount - 2 mlHeight: 67 inches Weight: 140.61 kg (310 lbs) BSA: 2.44 m^2 BMI: 48.55kg/m^2HR: 121 bpm BP: 130/57 mmHg Summary Technically limited exam. The left ventricle is chamber size (by PSLAX dimension) is normal (male - LVIDd 4.2- 5.8cm) . Normal LV wall thickness. Difficult to [...] by qualitative assessment is normal (55-60%) . Left Atrium LA size is normal [...] Pulmonic Valve PV is not well visualized; functionappears normal by Doppler visualized. Aorta Aortic root size (SInus of Valsalva diameter) is normal . Pericardium No significant pericardial effusion is [...] Aorta Ao Root S of Sheila.: 3.48 cmDoppler/Quantitative Measurements Aortic Valve Peak Velocity: 1.01 m/s [...] LVOT CO: 4.91 l/min LVOT CI: 2.01 l/min/m^2[facility] HospitalCALCIUM, [id number] 16:52:00 Test Item Value Reference Range Interpretation Comments CALCIUM IONIZED (BEAKER) (test 1.07 mmol/L 1.12-1.27 L code = 698) PH, BLOOD (BEAKER) (test code = 7.43 1810) POCT-GLUCOSE [id number] 16:46:00 Test Item Value Reference Range Interpretation Comments POC-GLUCOSE METER 213 mg/dL 70-110 H : TESTED A T [facility] 6720 (BEAKER) (test code = GREG Khan [facility], 1538) 34263: Central Station Operator/Techni bushra ID = [id number] for Ayesha Simeon POCT-GLUCOSE [id number] 12:18:00 Test Item Value Reference Range Interpretation Comments POC-GLUCOSE METER 330 mg/dL 70-110 H : TESTED A T [facility] 6720 (BEAKER) (test [facility] = [facility], 1538) 36447: Central Station Operator/Techni bushra ID = [id number] for Ayesha Simeon [id number] 11:46:00 Test Item Value Reference Range Interpretation Comments PROCALCITONIN (BEAKER) (test code 0.25 ng/mL <0.05 H = 3036) SEPSIS RISK (ng/mL)Low: 0.05-0.50Intermediate: 0.51-2.00High: >=[id number] 11:31:00 Test Item Value Reference Range Interpretation Comments POTASSIUM (BEAKER) (test code = 3.8 meq/L 3.5-5.1 379) Central Station Operator ID - SANIA MEvery 8 hours PRN for Creatinine greater than or equal to 2 mg/dL.[id number] 11:31:00 Test Item Value Reference Range Interpretation Comments MAGNESIUM (BEAKER) (test code = 2.2 mg/dL 1.6-2.6 627) Central Station Operator ID - SANIA MEvery 8 hours PRN for Creatinine greater than or equal to 2 mg/dL.POCT-GLUCOSE [id number] 07:57:00 Test Item Value Reference Range Interpretation Comments POC-GLUCOSE METER 250 mg/dL 70-110 H : TESTED A T [facility] 6720 (BEAKER) (test code = [facility] Erin [facility], 1538) 65164: Central Station Operator/Techni bushra ID = [id number] for Ayesha Simeon BASIC METABOLIC [id number] 04:22:00 Test Item Value Reference Range Interpretation Comments SODIUM (BEAKER) 138 meq/L 136-145 (test code = 381) POTASSIUM (BEAKER) 3.7 meq/L 3.5-5.1 (test code = 379) CHLORIDE (BEAKER) 104 meq/L 98-107 (test code = 382) CO2 (BEAKER) (test 28 meq/L 22-29 code = 355) BLOOD UREA NITROGEN 19 mg/dL 7-21 (BEAKER) (test code = 354) CREATININE (BEAKER) 1.00 mg/dL 0.57-1.25 (test code = 358) GLUCOSE RANDOM 253 mg/dL 70-105 H (BEAKER) (test code = 652) CALCIUM (BEAKER) 7.8 mg/dL 8.4-10.2 L (test code = 697) EGFR (BEAKER) (test 75 mL/min/1.73 ESTIMA HARINDER GFR IS code = 1092) sq m NOT ACCURATE CREATININE CLEARANCE IN PREDICTING GLOMERULAR FILTRATION RATE . ESTIMATED GFR I S NOT APPLICABLE FOR DIALYSIS PATIEN TS. Central Station Operator ID - SANIA [id number] 04:18:00 Test Item Value Reference Range Interpretation Comments PHOSPHORUS (BEAKER) (test code = 2.6 mg/dL 2.3-4.7 604) Central Station Operator ID - SANIA [id number] 04:18:00 Test Item Value Reference Range Interpretation Comments MAGNESIUM (BEAKER) (test code = 1.9 mg/dL 1.6-2.6 627) Central Station Operator ID - SANIA [facility]BC (HEMOGRAM ONLY)2020-01-01 04:12:00 Test Item Value Reference Range Interpretation Comments WHITE BLOOD CELL COUNT (BEAKER) 14.0 K/ L 3.5-10.5 H (test code = 775) RED BLOOD CELL COUNT (BEAKER) 2.59 M/ L 4.63-6.08 L (test code = 761) HEMOGLOBIN (BEAKER) (test code = 7.5 GM/DL 13.7-17.5 L 410) HEMATOCRIT (BEAKER) (test code = 23.4 % 40.1-51.0 L 411) MEAN CORPUSCULAR VOLUME (BEAKER) 90.3 fL 79.0-92.2 (test code = 753) MEAN CORPUSCULAR HEMOGLOBIN 29.0 pg 25.7-32.2 (BEAKER) (test code = 751) MEAN CORPUSCULAR HEMOGLOBIN CONC 32.1 GM/DL 32.3-36.5 L (BEAKER) (test code = 752) RED CELL DISTRIBUTION WIDTH 14.6 % 11.6-14.4 H (BEAKER) (test code = 412) PLATELET COUNT (BEAKER) (test 165 K/CU MM 150-450 code = 756) MEAN PLATELET VOLUME (BEAKER) 9.4 fL 9.4-12.4 (test code = 754) NUCLEATED RED BLOOD CELLS 1 /100 WBC 0-0 H (BEAKER) (test code = 413) CALCIUM, [id number] 04:01:00 Test Item Value Reference Range Interpretation Comments CALCIUM IONIZED (BEAKER) (test 1.01 mmol/L 1.12-1.27 L code = 698) PH, BLOOD (BEAKER) (test code = 7.46 1810) OXYGEN SATURATION, [id number] 04:00:00 Test Item Value Reference Range Interpretation Comments O2 SATURATION (MEASURED) (BEAKER) 65.4 % (test code = 1455) RAD, CHEST, 1 VIEW, NON [id number] 02:52:00Reason for exam:->s/p ACBShould this be performed at the bedside?->YesFINAL REPORT CLINICAL INDICATION: Postop Comparison: 12/31/2019 The cardiomedi astinal contours are stable. The lung volumes remain low. Central pulmonary vascular prominence and bilateral parenchymal opacities are unchanged. There is no pneumothorax. A left chest tube has been removed. A right IJ CVC remains in place. Signed: Evie Alvares Verified Date/Time: 01/01/2020 02:52:30 POCT- GLUCOSE [id number] 22:43:00 Test Item Value Reference Range Interpretation Comments POC-GLUCOSE METER 195 mg/dL 70-110 H : TESTED A T [facility] 6720 (BEAKER) (test code = GREG Khan [facility], 1538) 81537: Central Station Operator/Techni bushra ID = [id number] for DO HARINISHAKA STEVENSON POCT-GLUCOSE [id number] 16:47:00 Test Item Value Reference Range Interpretation Comments POC-GLUCOSE METER 213 mg/dL 70-110 H : TESTED A T [facility] 6720 (BEAKER) (test code = [facility], 1538) 46311: Central Station Operator/Techni bushra ID = [id number] for SHIRLEY FOX [id number] 14:33:00 Test Item Value Reference Range Interpretation Comments POTASSIUM (BEAKER) (test code = 3.9 meq/L 3.5-5.1 379) Central Station Operator ID - NTPCheck Serum Potassium level 2 hours after oral potassium replacement completed or 30 min after intravenous potassium replacement. [id number] 14:33:00 Test Item Value Reference Range Interpretation Comments MAGNESIUM (BEAKER) (test code = 2.1 mg/dL 1.6-2.6 627) Central Station Operator ID - NTPCheck Serum Potassium level 2 hours after oral potassium replacement completed or 30 min after intravenous potassium replacement.Lactic acid, [id number] 12:28:00 Test Item Value Reference Range Interpretation Comments Lactate, Venous (test code 1.90 mmol/L 0.5-2.2 = 2872) SUMEET (test code = SUMEET) Central Station Operator ID - NTP Lab Interpretation (test Normal code = 59225-8) [facility] HospitalLACT[facility] ACID, [id number] 12:28:00 Test Item Value Reference Range Interpretation Comments LACTATE BLOOD VENOUS (2) (BEAKER) 1.90 mmol/L 0.50-2.20 (test code = 2872) Central Station Operator ID - NTPPOCT-GLUCOSE [id number] 11:20:00 Test Item Value Reference Range Interpretation Comments POC-GLUCOSE METER 183 mg/dL 70-110 H : TESTED A T [facility] 6720 (BEAKER) (test code = [facility], 153) 32031: Central Station Operator/Techni bushra ID = [id number] for SHIRLEY FOX POCT-GLUCOSE [id number] 06:30:00 Test Item Value Reference Range Interpretation Comments POC-GLUCOSE METER 161 mg/dL 70-110 H : TESTED A T [facility] 6720 (BEAKER) (test code = [facility], 153) 71771: Central Station Operator/Techni bushra ID = [id number] for FERDINAND JARAMILLO BASIC METABOLIC [id number] 05:21:00 Test Item Value Reference Range Interpretation Comments SODIUM (BEAKER) 141 meq/L 136-145 (test code = 381) POTASSIUM (BEAKER) 3.6 meq/L 3.5-5.1 (test code = 379) CHLORIDE (BEAKER) 109 meq/L 98-107 H (test code = 382) CO2 (BEAKER) (test 28 meq/L 22-29 code = 355) BLOOD UREA NITROGEN 14 mg/dL 7-21 (BEAKER) (test code = 354) CREATININE (BEAKER) 0.91 mg/dL 0.57-1.25 (test code = 358) GLUCOSE RANDOM 130 mg/dL 70-105 H (BEAKER) (test code = 652) CALCIUM (BEAKER) 7.9 mg/dL 8.4-10.2 L (test code = 697) EGFR (BEAKER) (test 84 mL/min/1.73 ESTIMA HARINDER GFR IS code = 1092) sq m NOT ACCURATE CREATININE CLEARANCE IN PREDICTING GLOMERULAR FILTRATION RATE . ESTIMATED GFR I S NOT APPLICABLE FOR DIALYSIS PATIEN TS. Central Station Operator ID - SANIA MOXYGEN SATURATION, [id number] 05:17:00 Test Item Value Reference Range Interpretation Comments O2 SATURATION (MEASURED) (BEAKER) 97.2 % (test code = 1455) [id number] 05:15:00 Test Item Value Reference Range Interpretation Comments PHOSPHORUS (BEAKER) (test code = 2.6 mg/dL 2.3-4.7 604) Central Station Operator ID - SANIA [id number] 05:15:00 Test Item Value Reference Range Interpretation Comments MAGNESIUM (BEAKER) (test code = 2.0 mg/dL 1.6-2.6 627) Central Station Operator ID - SANIA MBlood gas, [id number] 04:47:00 Test Item Value Reference Range Interpretation Comments pH, Arterial (test code = 2744-1) 7.47 7.35-7.45 H pCO2, Arterial (test code = 38 35- 45 mmHg 2019-03) pO2, Arterial (test code = 2703-7) 133 80- 90 mmHg H O2 Sat, Arterial (test code = 98.8 % 96-97 H 2708-01) HCO3, Arterial (test code = 27 mmol/L 21-29 1959-) Base Excess, Arterial (test code = 3.3 mmol/L -2-3 H 1925-02) Patient Temperature (test code = 37.5 C 8310-5) FIO2 (test code = 1819) 40 % Lab Interpretation (test code = Abnormal 30697-2) [facility], [id number] 04:47:00 Test Item Value Reference Range Interpretation Comments PH ARTERIAL (BEAKER) (test code = 7.47 7.35-7.45 H 383) PCO2 ARTERIAL (BEAKER) (test code 38 mmHg 35-45 = 384) PO2 ARTERIAL (BEAKER) (test code = 133 mmHg 80-90 H 385) O2 SATURATION ARTERIAL (BEAKER) 98.8 % 96.0-97.0 H (test code = 386) HCO3 ARTERIAL (BEAKER) (test code 27 mmol/L 21-29 = 388) BASE EXCESS ARTERIAL (BEAKER) 3.3 mmol/L -2.0-3.0 H (test code = 387) PATIENT TEMPERATURE (BEAKER) (test 37.5 C code = 1818) FIO2 (BEAKER) (test code = 1819) 40.0 % CALCIUM, [id number] 04:47:00 Test Item Value Reference Range Interpretation Comments CALCIUM IONIZED (BEAKER) (test 1.08 mmol/L 1.12-1.27 L code = 698) PH, BLOOD (BEAKER) (test code = 7.48 1810) CBC (HEMOGRAM ONLY)2019-12-31 04:43:00 Test Item Value Reference Range Interpretation Comments WHITE BLOOD CELL COUNT (BEAKER) 11.4 K/ L 3.5-10.5 H (test code = 775) RED BLOOD CELL COUNT (BEAKER) 2.71 M/ L 4.63-6.08 L (test code = 761) HEMOGLOBIN (BEAKER) (test code = 7.6 GM/DL 13.7-17.5 L 410) HEMATOCRIT (BEAKER) (test code = 23.9 % 40.1-51.0 L 411) MEAN CORPUSCULAR VOLUME (BEAKER) 88.2 fL 79.0-92.2 (test code = 753) MEAN CORPUSCULAR HEMOGLOBIN 28.0 pg 25.7-32.2 (BEAKER) (test code = 751) MEAN CORPUSCULAR HEMOGLOBIN CONC 31.8 GM/DL 32.3-36.5 L (BEAKER) (test code = 752) RED CELL DISTRIBUTION WIDTH 14.5 % 11.6-14.4 H (BEAKER) (test code = 412) PLATELET COUNT (BEAKER) (test 137 K/CU MM 150-450 L code = 756) MEAN PLATELET VOLUME (BEAKER) 9.8 fL 9.4-12.4 (test code = 754) NUCLEATED RED BLOOD CELLS 0 /100 WBC 0-0 (BEAKER) (test code = 413) RAD, CHEST, 1 VIEW, NON [id number] 03:58:00Reason for exam:->s/p ACBShould this be performed at the bedside?->YesFINAL REPORT RAD, CHEST, 1 VIEW, NON DEPT INDICATION: s/p ACB COMPARISON: Prior day's exam FINDINGS: Portable frontal view of the chest. IMPRESSION: Support Lines: Interval extubation and removal of the enteric tube. Stable right IJ central venous catheter and left chest tube. Lungs and pleura: No significant change in central venous congestion and scattered bilateral interstitial opacities. No sizable effusion. No pneumothorax.Heart and mediastinum: Stable contours. Additional findings: None. Signed: Sen Joshi Verified Date/Time: 12/31/2019 03:58:10 POCT-GLUCOSE [id number] 23:57:00 Test Item Value Reference Range Interpretation Comments POC-GLUCOSE METER 133 mg/dL 70-110 H : TESTED A T [facility] 6720 (BEAKER) (test code = [facility], 1538) 77307: Central Station Operator/Techni bushra ID = [id number] for DO JONEL SHAKA Prepare [id number] 23:54:00 Test Item Value Reference Range Interpretation Comments Unit ABO (test code = 1164554) O Neg UNIT NUMBER (test code = [id number] 934-0) Status (test code = 7565819) TX_TIMEINCHART Blood Bank Product (test code PLATELETS = 2263) PRODUCT CODE (test code = A2642R30 933-2) [facility] [id number] 21:43:00 Test Item Value Reference Range Interpretation Comments POC-GLUCOSE METER 135 mg/dL 70-110 H : TESTED A T [facility] 6720 (BEAKER) (test code = [facility], 1538) 46408: Central Station Operator/Techni bushra ID = [id number] for SHAKA PIZARRO POCT-GLUCOSE [id number] 18:50:00 Test Item Value Reference Range Interpretation Comments POC-GLUCOSE METER 126 mg/dL 70-110 H : TESTED A T [facility] 6720 (BEAKER) (test code = [facility], 1538) 76365: Central Station Operator/Techni bushra ID = [id number] for Steve Clemens [id number] 17:38:00 Test Item Value Reference Range Interpretation Comments MAGNESIUM (BEAKER) (test code = 2.1 mg/dL 1.6-2.6 627) Central Station Operator ID - SANIA MBASIC METABOLIC [id number] 17:38:00 Test Item Value Reference Range Interpretation Comments SODIUM (BEAKER) 141 meq/L 136-145 (test code = 381) POTASSIUM (BEAKER) 3.9 meq/L 3.5-5.1 (test code = 379) CHLORIDE (BEAKER) 109 meq/L 98-107 H (test code = 382) CO2 (BEAKER) (test 29 meq/L 22-29 code = 355) BLOOD UREA NITROGEN 15 mg/dL 7-21 (BEAKER) (test code = 354) CREATININE (BEAKER) 1.02 mg/dL 0.57-1.25 (test code = 358) GLUCOSE RANDOM 139 mg/dL 70-105 H (BEAKER) (test code = 652) CALCIUM (BEAKER) 7.9 mg/dL 8.4-10.2 L (test code = 697) EGFR (BEAKER) (test 74 mL/min/1.73 ESTIMA HARINDER GFR IS code = 1092) sq m NOT ACCURATE CREATININE CLEARANCE IN PREDICTING GLOMERULAR FILTRATION RATE . ESTIMATED GFR I S NOT APPLICABLE FOR DIALYSIS PATIEN TS. Central Station Operator ID - SANIA MPOCT-GLUCOSE [id number] 16:38:00 Test Item Value Reference Range Interpretation Comments POC-GLUCOSE METER 129 mg/dL 70-110 H : TESTED A T [facility] 6720 (BEAKER) (test code = [facility], 1538) 26216: Central Station Operator/Techni bushra ID = [id number] for Paul rner, Steve POCT-GLUCOSE [id number] 14:43:00 Test Item Value Reference Range Interpretation Comments POC-GLUCOSE METER 138 mg/dL 70-110 H : TESTED A T [facility] 6720 (BEAKER) (test code = [facility], 1538) 13900: Central Station Operator/Techni bushra ID = [id number] for Paul rner, Steve POCT-GLUCOSE [id number] 11:39:00 Test Item Value Reference Range Interpretation Comments POC-GLUCOSE METER 153 mg/dL 70-110 H : TESTED A T [facility] 6720 (BEAKER) (test code = [facility], 1538) 64250: Central Station Operator/Techni bushra ID = [id number] for Paul rner, Steve POCT-GLUCOSE [id number] 08:58:00 Test Item Value Reference Range Interpretation Comments POC-GLUCOSE METER 183 mg/dL 70-110 H : TESTED A T [facility] 6720 (BEAKER) (test code = [facility], 1538) 70457: Central Station Operator/Techni bushra ID = [id number] for Paul rner, Steve Lactic Acid, [id number] 06:39:00 Test Item Value Reference Range Interpretation Comments Lactate, Art (test 4.0 mmol/L 0.5-2.2 HH Specimen code = 2874) markedly hemolyzed SUMEET (test code = SUMEET) Central Station Operator ID - SANIA M Lab Interpretation Abnormal (test code = 62601-0) [facility], [id number] 06:39:00 Test Item Value Reference Range Interpretation Comments LACTATE BLOOD 4.0 mmol/L 0.5-2.2 HH Specimen marke dly ARTERIAL (2) (BEAKER) hemoly zed (test code = 2874) Central Station Operator ID - SANIA MHGB/HCT (H&H)-Stat [id number] 05:58:00 Test Item Value Reference Range Interpretation Comments Hemoglobin (test code = 786-4) 8.2 g/dL 13-16.8 L Hematocrit (test code = 4544-3) 24.0 % 40-50 L Lab Interpretation (test code = Abnormal 97727-1) [facility]Stat [id number] 05:58:00 Test Item Value Reference Range Interpretation Comments Glucose (test code = 2345-7) 201 mg/dL 70-110 H Lab Interpretation (test code = Abnormal 35845-7) [facility] AngelesBL[facility], [id number] 05:58:00 Test Item Value Reference Range Interpretation Comments PH ARTERIAL (BEAKER) (test code = 7.43 7.35-7.45 383) PCO2 ARTERIAL (BEAKER) (test code 37 mmHg 35-45 = 384) PO2 ARTERIAL (BEAKER) (test code 151 mmHg 80-90 H = 385) O2 SATURATION ARTERIAL (BEAKER) 99.0 % 96.0-97.0 H (test code = 386) HCO3 ARTERIAL (BEAKER) (test code 24 mmol/L 21-29 = 388) BASE EXCESS ARTERIAL (BEAKER) -0.3 mmol/L -2.0-3.0 (test code = 387) PATIENT TEMPERATURE (BEAKER) 38.0 C (test code = 1818) FIO2 (BEAKER) (test code = 1819) 100.0 % GLUCOSE-STAT [id number] 05:58:00 Test Item Value Reference Range Interpretation Comments GLUCOSE RANDOM (BEAKER) (test code 201 mg/dL 70-110 H = 652) HGB/HCT (H&H) - STAT [id number] 05:58:00 Test Item Value Reference Range Interpretation Comments HEMOGLOBIN (BEAKER) (test code = 8.2 g/dL 13.0-16.8 L 410) HEMATOCRIT (BEAKER) (test code = 24.0 % 40.0-50.0 L 411) Sodium Na-Stat [id number] 05:57:00 Test Item Value Reference Range Interpretation Comments Sodium (test code = 2951-2) 136 meq/L 136-145 Lab Interpretation (test code = Normal 48749-9) [facility]Stat [id number] 05:57:00 Test Item Value Reference Range Interpretation Comments Potassium (test code = 2823-3) 4.2 meq/L 3.6-5.5 Lab Interpretation (test code = Normal 48918-1) [facility] [id number] 05:57:00 Test Item Value Reference Range Interpretation Comments SODIUM (BEAKER) (test code = 381) 136 meq/L 136-145 POTASSIUM-STAT [id number] 05:57:00 Test Item Value Reference Range Interpretation Comments POTASSIUM (BEAKER) (test code = 4.2 meq/L 3.6-5.5 379) CBC (HEMOGRAM ONLY)2019-12-30 05:20:00 Test Item Value Reference Range Interpretation Comments WHITE BLOOD CELL COUNT (BEAKER) 9.5 K/ L 3.5-10.5 (test code = 775) RED BLOOD CELL COUNT (BEAKER) 2.78 M/ L 4.63-6.08 L (test code = 761) HEMOGLOBIN (BEAKER) (test code = 8.0 GM/DL 13.7-17.5 L 410) HEMATOCRIT (BEAKER) (test code = 24.7 % 40.1-51.0 L 411) MEAN CORPUSCULAR VOLUME (BEAKER) 88.8 fL 79.0-92.2 (test code = 753) MEAN CORPUSCULAR HEMOGLOBIN 28.8 pg 25.7-32.2 (BEAKER) (test code = 751) MEAN CORPUSCULAR HEMOGLOBIN CONC 32.4 GM/DL 32.3-36.5 (BEAKER) (test code = 752) RED CELL DISTRIBUTION WIDTH 14.3 % 11.6-14.4 (BEAKER) (test code = 412) PLATELET COUNT (BEAKER) (test 172 K/CU MM 150-450 code = 756) MEAN PLATELET VOLUME (BEAKER) 9.9 fL 9.4-12.4 (test code = 754) NUCLEATED RED BLOOD CELLS 0 /100 WBC 0-0 (BEAKER) (test code = 413) POCT-GLUCOSE [id number] 05:18:00 Test Item Value Reference Range Interpretation Comments POC-GLUCOSE METER 202 mg/dL 70-110 H : TESTED A T [facility] 6720 (BEAKER) (test code = [facility], 1538) 98651: Central Station Operator/Techni bushra ID = [id number] for DE CKER, ALLA LACTIC ACID, [id number] 04:12:00 Test Item Value Reference Range Interpretation Comments LACTATE BLOOD VENOUS (2) (BEAKER) 4.68 mmol/L 0.50-2.20 HH (test code = 2872) Central Station Operator HEATHER LUI MBASIC METABOLIC [id number] 04:09:00 Test Item Value Reference Range Interpretation Comments SODIUM (BEAKER) 139 meq/L 136-145 (test code = 381) POTASSIUM (BEAKER) 4.5 meq/L 3.5-5.1 (test code = 379) CHLORIDE (BEAKER) 110 meq/L 98-107 H (test code = 382) CO2 (BEAKER) (test 21 meq/L 22-29 L code = 355) BLOOD UREA NITROGEN 15 mg/dL 7-21 (BEAKER) (test code = 354) CREATININE (BEAKER) 1.10 mg/dL 0.57-1.25 (test code = 358) GLUCOSE RANDOM 216 mg/dL 70-105 H (BEAKER) (test code = 652) CALCIUM (BEAKER) 7.4 mg/dL 8.4-10.2 L (test code = 697) EGFR (BEAKER) (test 67 mL/min/1.73 ESTIMA HARINDER GFR IS code = 1092) sq m NOT ACCURATE CREATININE CLEARANCE IN PREDICTING GLOMERULAR FILTRATION RATE . ESTIMATED GFR I S NOT APPLICABLE FOR DIALYSIS PATIEN TS. Central Station Operator ID Jodi LUI [id number] 04:01:00 Test Item Value Reference Range Interpretation Comments PHOSPHORUS (BEAKER) (test code = 3.7 mg/dL 2.3-4.7 604) Central Station Operator ID - SANIA [id number] 04:01:00 Test Item Value Reference Range Interpretation Comments MAGNESIUM (BEAKER) (test code = 1.8 mg/dL 1.6-2.6 627) Central Station Operator ID - SANIA MBlood gas, [id number] 03:44:00 Test Item Value Reference Range Interpretation Comments pH, Xavi (test code = 2746-6) 7.39 7.32-7.42 pCO2, Xavi (test code = 755) 44 41- 51 mmHg pO2, Xavi (test code = 2705-2) 35 25- 40 mmHg O2 Sat, Xavi (test code = 2711-0) 62.0 % 40-70 HCO3, Xavi (test code = 09146-5) 25 mmol/L 21-29 Base Excess, Xavi (test code = 0.4 mmol/L -2-3 1927-3) Patient Temperature (test code = 38.1 C 8310-5) FIO2 (test code = 1819) 40 % [facility], [id number] 03:44:00 Test Item Value Reference Range Interpretation Comments PH VENOUS (BEAKER) (test code = 7.39 7.32-7.42 701) PCO2 VENOUS (BEAKER) (test code = 44 mmHg 41-51 755) PO2 VENOUS (BEAKER) (test code = 35 mmHg 25-40 702) O2 SATURATION VENOUS (BEAKER) 62.0 % 40.0-70.0 (test code = 703) HCO3 VENOUS (BEAKER) (test code = 25 mmol/L 21-29 705) BASE EXCESS VENOUS (BEAKER) (test 0.4 mmol/L -2.0-3.0 code = 704) PATIENT TEMPERATURE (BEAKER) (test 38.1 C code = 1818) FIO2 (BEAKER) (test code = 1819) 40.0 % CALCIUM, [id number] 03:20:00 Test Item Value Reference Range Interpretation Comments CALCIUM IONIZED (BEAKER) (test 1.05 mmol/L 1.12-1.27 L code = 698) PH, BLOOD (BEAKER) (test code = 7.36 1810) OXYGEN SATURATION, [id number] 03:16:00 Test Item Value Reference Range Interpretation Comments O2 SATURATION (MEASURED) (BEAKER) 55.9 % (test code = 1455) RAD, CHEST, 1 VIEW, NON [id number] 02:29:00Reason for exam:->s/p ACBShould this be performed at the bedside?->YesFINAL REPORT CLINICAL INDICATION: Postop Comparison: 12/29/2019 The cardiomedi astinal contours are stable. The lung volumes remain low. Central pulmonary vascular congestion and bilateral parenchymal opacities are unchanged. There is no pneumothorax. Support lines are stable. Signed: Evie Alvares MDReport Verified Date/Time: 12/30/2019 02:29:11 POCT-GLUCOSE [id number] 02:26:00 Test Item Value Reference Range Interpretation Comments POC-GLUCOSE METER 227 mg/dL 70-110 H : TESTED A T [facility]20 (BEAKER) (test code = GREG WEBBER MS, 1538) [address]: Central Station Operator/Techni bushra ID = [id number] for ALLA FALK LACTIC ACID, [id number] 01:10:00 Test Item Value Reference Range Interpretation Comments LACTATE BLOOD ARTERIAL (2) 3.9 mmol/L 0.5-2.2 H (BEAKER) (test code = 2874) Central Station Operator ID - SANIA MBLOOD GAS, [id number] 01:04:00 Test Item Value Reference Range Interpretation Comments PH ARTERIAL (BEAKER) (test code = 7.44 7.35-7.45 383) PCO2 ARTERIAL (BEAKER) (test code 35 mmHg 35-45 = 384) PO2 ARTERIAL (BEAKER) (test code 98 mmHg 80-90 H = 385) O2 SATURATION ARTERIAL (BEAKER) 97.3 % 96.0-97.0 H (test code = 386) HCO3 ARTERIAL (BEAKER) (test code 23 mmol/L 21-29 = 388) BASE EXCESS ARTERIAL (BEAKER) -0.9 mmol/L -2.0-3.0 (test code = 387) PATIENT TEMPERATURE (BEAKER) 38.5 C (test code = 1818) FIO2 (BEAKER) (test code = 1819) 40.0 % GLUCOSE-STAT [id number] 01:04:00 Test Item Value Reference Range Interpretation Comments GLUCOSE RANDOM (BEAKER) (test code 226 mg/dL 70-110 H = 652) HGB/HCT (H&H) - STAT [id number] 01:04:00 Test Item Value Reference Range Interpretation Comments HEMOGLOBIN (BEAKER) (test code = 8.2 g/dL 13.0-16.8 L 410) HEMATOCRIT (BEAKER) (test code = 24.0 % 40.0-50.0 L 411) SODIUM NA-STAT [id number] 01:03:00 Test Item Value Reference Range Interpretation Comments SODIUM (BEAKER) (test code = 381) 136 meq/L 136-145 POTASSIUM-STAT [id number] 01:03:00 Test Item Value Reference Range Interpretation Comments POTASSIUM (BEAKER) (test code = 4.5 meq/L 3.6-5.5 379) POCT-GLUCOSE [id number] 00:20:00 Test Item Value Reference Range Interpretation Comments POC-GLUCOSE METER 228 mg/dL 70-110 H : TESTED A T [facility] 6720 (BEAKER) (test code = [facility], 1538) [address]245: Central Station Operator/Techni bushra ID = [id number] for DE CKER, ALLA LACTIC ACID, [id number] 22:13:00 Test Item Value Reference Range Interpretation Comments LACTATE BLOOD 4.5 mmol/L 0.5-2.2 HH Specimen sligh tly ARTERIAL (2) (BEAKER) hemoly zed (test code = 2874) Central Station Operator ID - BSPOCT-GLUCOSE [id number] 22:07:00 Test Item Value Reference Range Interpretation Comments POC-GLUCOSE METER 237 mg/dL 70-110 H : TESTED A T [facility] 6720 (BEAKER) (test code = [facility], 1538) 81986: Central Station Operator/Techni bushra ID = [id number] for DE CKER, ALLA POCT-GLUCOSE [id number] 22:06:00 Test Item Value Reference Range Interpretation Comments POC-GLUCOSE METER 235 mg/dL 70-110 H : TESTED A T [facility] 6720 (BEAKER) (test code = [facility], 1538) 25769: Central Station Operator/Techni bushra ID = [id number] for DE CKER, ALLA LACTIC ACID, [id number] 19:00:00 Test Item Value Reference Range Interpretation Comments LACTATE BLOOD ARTERIAL (2) 4.2 mmol/L 0.5-2.2 HH (BEAKER) (test code = 2874) Central Station Operator ID - BSBASIC METABOLIC [id number] 18:58:00 Test Item Value Reference Range Interpretation Comments SODIUM (BEAKER) 140 meq/L 136-145 (test code = 381) POTASSIUM (BEAKER) 4.5 meq/L 3.5-5.1 (test code = 379) CHLORIDE (BEAKER) 109 meq/L 98-107 H (test code = 382) CO2 (BEAKER) (test 22 meq/L 22-29 code = 355) BLOOD UREA NITROGEN 18 mg/dL 7-21 (BEAKER) (test code = 354) CREATININE (BEAKER) 1.12 mg/dL 0.57-1.25 (test code = 358) GLUCOSE RANDOM 227 mg/dL 70-105 H (BEAKER) (test code = 652) CALCIUM (BEAKER) 7.7 mg/dL 8.4-10.2 L (test code = 697) EGFR (BEAKER) (test 66 mL/min/1.73 ESTIMA HARINDER GFR IS code = 1092) sq m NOT ACCURATE CREATININE CLEARANCE IN PREDICTING GLOMERULAR FILTRATION RATE . ESTIMATED GFR I S NOT APPLICABLE FOR DIALYSIS PATIEN TS. Central Station Operator ID - [id number] 18:48:00 Test Item Value Reference Range Interpretation Comments MAGNESIUM (BEAKER) (test code = 2.1 mg/dL 1.6-2.6 627) Central Station Operator ID - BSBLOOD GAS, [id number] 18:33:00 Test Item Value Reference Range Interpretation Comments PH ARTERIAL (BEAKER) (test code = 7.40 7.35-7.45 383) PCO2 ARTERIAL (BEAKER) (test code 37 mmHg 35-45 = 384) PO2 ARTERIAL (BEAKER) (test code 152 mmHg 80-90 H = 385) O2 SATURATION ARTERIAL (BEAKER) 98.9 % 96.0-97.0 H (test code = 386) HCO3 ARTERIAL (BEAKER) (test code 22 mmol/L 21-29 = 388) BASE EXCESS ARTERIAL (BEAKER) -2.0 mmol/L -2.0-3.0 (test code = 387) PATIENT TEMPERATURE (BEAKER) 38.0 C (test code = 1818) FIO2 (BEAKER) (test code = 1819) 40.0 % CALCIUM, [id number] 18:33:00 Test Item Value Reference Range Interpretation Comments CALCIUM IONIZED (BEAKER) (test 1.06 mmol/L 1.12-1.27 L code = 698) PH, BLOOD (BEAKER) (test code = 7.41 1810) CBC (HEMOGRAM ONLY)2019-12-29 18:28:00 Test Item Value Reference Range Interpretation Comments WHITE BLOOD CELL COUNT (BEAKER) 14.3 K/ L 3.5-10.5 H (test code = 775) RED BLOOD CELL COUNT (BEAKER) 2.88 M/ L 4.63-6.08 L (test code = 761) HEMOGLOBIN (BEAKER) (test code = 8.3 GM/DL 13.7-17.5 L 410) HEMATOCRIT (BEAKER) (test code = 25.3 % 40.1-51.0 L 411) MEAN CORPUSCULAR VOLUME (BEAKER) 87.8 fL 79.0-92.2 (test code = 753) MEAN CORPUSCULAR HEMOGLOBIN 28.8 pg 25.7-32.2 (BEAKER) (test code = 751) MEAN CORPUSCULAR HEMOGLOBIN CONC 32.8 GM/DL 32.3-36.5 (BEAKER) (test code = 752) RED CELL DISTRIBUTION WIDTH 14.5 % 11.6-14.4 H (BEAKER) (test code = 412) PLATELET COUNT (BEAKER) (test 268 K/CU MM 150-450 code = 756) MEAN PLATELET VOLUME (BEAKER) 9.6 fL 9.4-12.4 (test code = 754) NUCLEATED RED BLOOD CELLS 0 /100 WBC 0-0 (BEAKER) (test code = 413) POCT-GLUCOSE [id number] 18:21:00 Test Item Value Reference Range Interpretation Comments POC-GLUCOSE METER 209 mg/dL 70-110 H : [facility] (BEAKER) (test code = [facility], 1538) 30344: Central Station Operator/Techni bushra ID = [id number] for DEVAUGHN JAVIER PLATELET AGGREGATION: FUNCTION [id number] 18:20:00 Test Item Value Reference Range Interpretation Comments [id number] Freddy Sharp M.D. (BEAKER) (test code = (electonic signature) 5803) PLATELET COUNT AGG 194 K/CU MM 150-450 (BEAKER) (test code = 6810) ADP (BEAKER) (test code 3 % 62-100 L = 4654) PLATELET RICH 223 k/cu mm 200-300 PLASMA(BEAKER) (test code = 2134) PLATELET FUNCTION Pattern of SCREEN INTERPRETATION disaggregation present (BEAKER) (test code = with ADP which may be 4655) characteristic of P2Y12 inhibitor effect. Correlation with medication history is required. Platelet Function Screen results may be falsely low with platelet counts<75,000/cu mm.Central Station Operator ID- [id number] Aggregation: Function Screen 2019-12-29 18:16:00 Test Item Value Reference Range Interpretation Comments Pathologist: (test Freddy Sharp M.D. code = 2622) (electonic signature) Platelets (test code = 258 150- 450 K/CU MM 2656) ADP (test code = 30 % 62-100 L 92816-8) Platelet Rich Plasma 276 200- 300 k/cu mm (test code = 2134) Plt. Function Screen Pattern of Interpretation (test disaggregation present code = 4655) with ADP which may be characteristic of P2Y12 inhibitor effect. Correlation with medication history is required. SUMEET (test code = SUMEET) Platelet Function Screen results may be falsely low with platelet counts<75,000/cu mm.Central Station Operator ID - [id number] Lab Interpretation Abnormal (test code = 80524-4) [facility] FUNCTION [id number] 18:16:00 Test Item Value Reference Range Interpretation Comments [id number] Freddy Sharp M.D. (BEAKER) (test code = (electonic signature) 2622) PLATELET COUNT AGG 258 K/CU MM 150-450 (BEAKER) (test code = 2656) ADP (BEAKER) (test code 30 % 62-100 L = 4654) PLATELET RICH 276 k/cu mm 200-300 PLASMA(BEAKER) (test code = 2134) PLATELET FUNCTION Pattern of SCREEN INTERPRETATION disaggregation present (BEAKER) (test code = with ADP which may be 4655) characteristic of P2Y12 inhibitor effect. Correlation with medication history is required. Platelet Function Screen results may be falsely low with platelet counts<75,000/cu mm.Central Station Operator ID- [id number]-GLUCOSE [id number] 18:12:00 Test Item Value Reference Range Interpretation Comments POC-GLUCOSE METER 210 mg/dL 70-110 H : TESTED A T [facility] 6720 (BEAKER) (test code = [facility], 1538) 51930: Central Station Operator/Techni bushra ID = [id number] for DEVAUGHN JAVIER SODIUM NA-STAT [id number] 16:40:00 Test Item Value Reference Range Interpretation Comments SODIUM (BEAKER) (test code = 381) 136 meq/L 136-145 POTASSIUM-STAT [id number] 16:40:00 Test Item Value Reference Range Interpretation Comments POTASSIUM (BEAKER) (test code = 4.0 meq/L 3.6-5.5 379) BLOOD GAS, [id number] 16:40:00 Test Item Value Reference Range Interpretation Comments PH ARTERIAL (BEAKER) (test code = 7.28 7.35-7.45 L 383) PCO2 ARTERIAL (BEAKER) (test code 44 mmHg 35-45 = 384) PO2 ARTERIAL (BEAKER) (test code 144 mmHg 80-90 H = 385) O2 SATURATION ARTERIAL (BEAKER) 98.5 % 96.0-97.0 H (test code = 386) HCO3 ARTERIAL (BEAKER) (test code 20 mmol/L 21-29 L = 388) BASE EXCESS ARTERIAL (BEAKER) -6.3 mmol/L -2.0-3.0 L (test code = 387) PATIENT TEMPERATURE (BEAKER) 37.6 C (test code = 1818) FIO2 (BEAKER) (test code = 1819) 40.0 % GLUCOSE-STAT [id number] 16:40:00 Test Item Value Reference Range Interpretation Comments GLUCOSE RANDOM (BEAKER) (test code 217 mg/dL 70-110 H = 652) HGB/HCT (H&H) - STAT [id number] 16:40:00 Test Item Value Reference Range Interpretation Comments HEMOGLOBIN (BEAKER) (test code = 9.4 g/dL 13.0-16.8 L 410) HEMATOCRIT (BEAKER) (test code = 28.0 % 40.0-50.0 L 411) Hemoglobin [id number] 16:12:00 Test Item Value Reference Range Interpretation Comments Hemoglobin A1C (test code = 4548-4) 7.7 % 4.3-6.1 H Lab Interpretation (test code = Abnormal 32361-9) [facility] Angeles[facility]MO[facility] [id number] 16:12:00 Test Item Value Reference Range Interpretation Comments HEMOGLOBIN A1C (BEAKER) (test code = 7.7 % 4.3-6.1 H 368) Prepare [id number] 15:34:00 Test Item Value Reference Range Interpretation Comments CROSSMATCH (test code = COMPATIBLE 2264) Unit ABO (test code = O Pos 0698614) UNIT NUMBER (test code = [id number] 934-0) Status (test code = RETURNED FROM ISSUE 0779239) Blood Bank Product (test RED BLOOD CELLS code = 2263) PRODUCT CODE (test code = [id number] 933-2) [facility] AngelesManual [id number] 15:25:00 Test Item Value Reference Range Interpretation Comments % Neutros (test code = 75 % 2816) % Lymphs (test code = 12 % 2817) % Monos (test code = 8 % 2818) % Eos (test code = 1 % 2819) % Bands (test code = 2 % 0-10 2826) % Atypical Lymphs (test 2 % 0-0 H code = 2829) # Neutros (test code = 15.98 K/ul 1.78-5.38 H 2830) # Lymphs (test code = 2.56 K/ul 1.32-3.57 2831) # Monos (test code = 1.70 K/uL 0.3-0.82 H 2832) # Eos (test code = 0.21 K/uL 0.04-0.54 2834) # Bands (test code = 0.43 K/uL 0-0.8 2840) # Atypical Lymphs (test 0.43 K/uL 0-0 H code = 2858) Total Counted (test 100 code = 1351) Giant Platelet (test Present code = 313) Vacuolated Neutrophils Present (test code = 483) Anisocytosis (test code 1+ few = 961) Microcytes (test code = 1+ few 965) Artifact (test code = Present 3432) Platelet Conc (test Adequate code = 3438) SUMEET (test code = SUMEET) Central Station Operator ID - Ga comments: Slide comments: Lab Interpretation Abnormal (test code = 99337-7) [facility](CELLAVISION MANUAL DIFF)2019-12-29 15:25:00 Test Item Value Reference Range Interpretation Comments NEUTROPHILS - REL 75 % (CELLAVISION)(BEAKER) (test code = 2816) LYMPHOCYTES - REL 12 % (CELLAVISION)(BEAKER) (test code = 2817) MONOCYTES - REL 8 % (CELLAVISION)(BEAKER) (test code = 2818) EOSINOPHILS - REL 1 % (CELLAVISION)(BEAKER) (test code = 2819) BANDS - REL (CELLAVISION)(BEAKER) 2 % 0-10 (test code = 2826) ATYPICAL LYMPHOCYTES - REL 2 % 0-0 H (CELLAVISION)(BEAKER) (test code = 2829) NEUTROPHILS - ABS 15.98 K/ul 1.78-5.38 H (CELLAVISION)(BEAKER) (test code = 2830) LYMPHOCYTES - ABS 2.56 K/ul 1.32-3.57 (CELLAVISION)(BEAKER) (test code = 2831) MONOCYTES - ABS 1.70 K/uL 0.30-0.82 H (CELLAVISION)(BEAKER) (test code = 2832) EOSINOPHILS - ABS 0.21 K/uL 0.04-0.54 (CELLAVISION)(BEAKER) (test code = 2834) BANDS - ABS (CELLAVISION)(BEAKER) 0.43 K/uL 0.00-0.80 (test code = 2840) ATYPICAL LYMPHOCYTES - ABS 0.43 K/uL 0.00-0.00 H (CELLAVISION)(BEAKER) (test code = 2858) TOTAL COUNTED (BEAKER) (test code 100 = 1351) GIANT PLATELETS (BEAKER) (test Present code = 313) VACUOLATED NEUTROPHILS (BEAKER) Present (test code = 483) ANISOCYTOSIS (BEAKER) (test code = 1+ few 961) MICROCYTES (BEAKER) (test code = 1+ few 965) ARTIFACT (CELLAVISION)(BEAKER) Present (test code = 3432) PLATELET CONCENTRATION Adequate (CELLAVISION)(BEAKER) (test code = 3438) Central Station Operator ID - Ga comments: Slide comments:POCT-GLUCOSE METER 2019-12-29 15:23:00 Test Item Value Reference Range Interpretation Comments POC-GLUCOSE METER 203 mg/dL 70-110 H : TESTED A T [facility] 6720 (BEAKER) (test code = GREG LAMBERT, 1538) 15135: Central Station Operator/Techni bushra ID = [id number] for DEVAUGHN JAVIER BLOOD GAS, [id number] 15:16:00 Test Item Value Reference Range Interpretation Comments PH ARTERIAL (BEAKER) (test code = 7.26 7.35-7.45 L 383) PCO2 ARTERIAL (BEAKER) (test code 52 mmHg 35-45 H = 384) PO2 ARTERIAL (BEAKER) (test code 127 mmHg 80-90 H = 385) O2 SATURATION ARTERIAL (BEAKER) 98.0 % 96.0-97.0 H (test code = 386) HCO3 ARTERIAL (BEAKER) (test code 23 mmol/L 21-29 = 388) BASE EXCESS ARTERIAL (BEAKER) -4.6 mmol/L -2.0-3.0 L (test code = 387) PATIENT TEMPERATURE (BEAKER) 36.9 C (test code = 1818) FIO2 (BEAKER) (test code = 1819) 40.0 % GLUCOSE-STAT [id number] 15:16:00 Test Item Value Reference Range Interpretation Comments GLUCOSE RANDOM (BEAKER) (test code 199 mg/dL 70-110 H = 652) HGB/HCT (H&H) - STAT [id number] 15:16:00 Test Item Value Reference Range Interpretation Comments HEMOGLOBIN (BEAKER) (test code = 9.7 g/dL 13.0-16.8 L 410) HEMATOCRIT (BEAKER) (test code = 29.0 % 40.0-50.0 L 411) SODIUM NA-STAT [id number] 15:14:00 Test Item Value Reference Range Interpretation Comments SODIUM (BEAKER) (test code = 381) 138 meq/L 136-145 POTASSIUM-STAT [id number] 15:14:00 Test Item Value Reference Range Interpretation Comments POTASSIUM (BEAKER) (test code = 4.0 meq/L 3.6-5.5 379) CBC with platelet count + automated [id number] 15:13:00 Test Item Value Reference Range Interpretation Comments WBC (test code = 6690-2) 21.3 3.5- 10.5 K/L H RBC (test code = 789-8) 3.39 4.63- 6.08 M/L L MCHC (test code = 786-4) 32.9 32.3- 36.5 GM/DL L Hematocrit (test code = 30.1 % 40.1-51 L 4544-3) MCV (test code = 787-2) 88.8 fL 79-92.2 MCH (test code = 785-6) 29.2 pg 25.7-32.2 RDW (test code = 788-0) 14.4 % 11.6-14.4 Platelets (test code = 338 150- 450 K/CU MM D iscordant results 777-3) compared to previous, clini karla correlation required. MPV (test code = 9.6 fL 9.4-12.4 56577-3) nRBC (test code = 413) 0 0- 0 /100 WBC % Neutros (test code = 72 % 429) % Lymphs (test code = 15 % 430) % Monos (test code = 11 % 431) % Eos (test code = 432) 1 % % Baso (test code = 437) 0 % # Neutros (test code = 15.26 1.78- 5.38 K/L H 670) # Lymphs (test code = 3.22 1.32- 3.57 K/L 414) # Monos (test code = 2.36 0.30- 0.82 K/L H 415) # Eos (test code = 416) 0.11 0.04- 0.54 K/L # Baso (test code = 417) 0.05 0.01- 0.08 K/L Immature 1 % 0-1 Granulocytes-Relative (test code = 2801) Lab Interpretation (test Abnormal code = 91978-4) [facility] W/PLT COUNT & AUTO [id number] 15:13:00 Test Item Value Reference Range Interpretation Comments WHITE BLOOD CELL COUNT 21.3 K/ L 3.5-10.5 H (BEAKER) (test code = 775) RED BLOOD CELL COUNT 3.39 M/ L 4.63-6.08 L (BEAKER) (test code = 761) HEMOGLOBIN (BEAKER) 9.9 GM/DL 13.7-17.5 L (test code = 410) HEMATOCRIT (BEAKER) 30.1 % 40.1-51.0 L (test code = 411) MEAN CORPUSCULAR 88.8 fL 79.0-92.2 VOLUME (BEAKER) (test code = 753) MEAN CORPUSCULAR 29.2 pg 25.7-32.2 HEMOGLOBIN (BEAKER) (test code = 751) MEAN CORPUSCULAR 32.9 GM/DL 32.3-36.5 HEMOGLOBIN CONC (BEAKER) (test code = 752) RED CELL DISTRIBUTION 14.4 % 11.6-14.4 WIDTH (BEAKER) (test code = 412) PLATELET COUNT 338 K/CU MM 150-450 Discordant re sults (BEAKER) (test code = compar ed to 756) previous, clini karla correlation required. MEAN PLATELET VOLUME 9.6 fL 9.4-12.4 (BEAKER) (test code = 754) NUCLEATED RED BLOOD 0 /100 WBC 0-0 CELLS (BEAKER) (test code = 413) NEUTROPHILS RELATIVE 72 % PERCENT (BEAKER) (test code = 429) LYMPHOCYTES RELATIVE 15 % PERCENT (BEAKER) (test code = 430) MONOCYTES RELATIVE 11 % PERCENT (BEAKER) (test code = 431) EOSINOPHILS RELATIVE 1 % PERCENT (BEAKER) (test code = 432) BASOPHILS RELATIVE 0 % PERCENT (BEAKER) (test code = 437) NEUTROPHILS ABSOLUTE 15.26 K/ L 1.78-5.38 H COUNT (BEAKER) (test code = 670) LYMPHOCYTES ABSOLUTE 3.22 K/ L 1.32-3.57 COUNT (BEAKER) (test code = 414) MONOCYTES ABSOLUTE 2.36 K/ L 0.30-0.82 H COUNT (BEAKER) (test code = 415) EOSINOPHILS ABSOLUTE 0.11 K/ L 0.04-0.54 COUNT (BEAKER) (test code = 416) BASOPHILS ABSOLUTE 0.05 K/ L 0.01-0.08 COUNT (BEAKER) (test code = 417) IMMATURE 1 % 0-1 GRANULOCYTES-RELATIVE PERCENT (BEAKER) (test code = 2801) Lipid [id number] 14:51:00 Test Item Value Reference Range Interpretation Comments Triglycerides (test 229 mg/dL code = 2571-8) Cholesterol (test code 143 mg/dL = 2093-3) HDL (test code = 27 mg/dL 2085-9) LDL Calculated (test 70 mg/dL code = 62176-7) SUMEET (test code = SUMEET) Triglyceride Reference Range: Low Risk <150 Borderline 150-199 High Risk 200-499 Very High Risk >=500 Cholesterol Reference Range: Low Risk <200 Borderline 200-239 High Risk >240 HDL Cholesterol Reference Range: Low Risk >=60 High Risk <40 LDL Cholesterol Reference Range: Optimal <100 Near Optimal 100-129 Borderline 130-159 High 160-189 Very High >=190 Central Station Operator ID - NTPSpecimen slightly lipemic [facility] [id number] 14:51:00 Test Item Value Reference Range Interpretation Comments TRIGLYCERIDES (PATRICIA) (test code = 229 mg/dL 540) CHOLESTEROL (AKER) (test code = 143 mg/dL 631) HDL CHOLESTEROL ([facility]) (test code 27 mg/dL = 976) LDL CHOLESTEROL CALCULATED ([facility]) 70 mg/dL (test code = 633) Triglyceride Reference Range: Low Risk <150 Borderline 150-199 High Risk 200-499 Very High Risk >=500Cholesterol Reference Range: Low Risk <200 Borderline 200-239 High Risk >240HDL Cholesterol Reference Range: Low Risk >=60 High Risk <40LDL Cholesterol Reference Range: Optimal <100 Near Optimal 100-129 Borderline 130-159 High 160-189 Very High >=190 Central Station Operator ID - NTPSpecimen slightly lipemicPOCT-GLUCOSE METER 2019-12-29 14:23:00 Test Item Value Reference Range Interpretation Comments POC-GLUCOSE METER 152 mg/dL 70-110 H : TESTED A T [facility] 67[facility] ([facility]) (test code = GREG WEBBER MS, 1538) 38410: Central Station Operator/Techni bushra ID = [id number] for Farhana Carlos Comprehensive metabolic [id number] 14:21:00 Test Item Value Reference Range Interpretation Comments Protein, Total (test 5.0 6.0- 8.3 gm/dL L code = 2885-2) Albumin (test code = 2.7 g/dL 3.5-5 L 01212-7) Alkaline Phosphatase 50 U/L 40-150 (test code = 6768-6) Total Bilirubin (test 0.9 mg/dL 0.2-1.2 code = 1975-2) Sodium (test code = 140 meq/L 202-785 2429-2) Potassium (test code 4.3 meq/L 3.5-5.1 = 2823-3) Chloride (test code = 109 meq/L 98-107 H 5-0) CO2 (test code = 22 meq/L 22-29 8-9) BUN (test code = 18 mg/dL 7-21 3094-0) Creatinine (test code 1.07 mg/dL 0.57-1.25 = 2160-0) Glucose (test code = 204 mg/dL 70-105 H 2345-7) Calcium (test code = 8.7 mg/dL 8.4-10.2 90923-7) AST (test code = 73 U/L 5-34 H 1920-8) ALT (test code = 46 U/L 6-55 1742-6) EGFR (test code = 70 mL/min/1.73 [place] [address]-1) m NOT ACCURATE CREATININE CLEARANCE IN PREDICTING GLOMERULAR FILTRATION RATE . ESTIMATED GFR I S NOT APPLICABLE FOR DIALYSIS PATIENTS. SUMEET (test code = SUMEET) Central Station Operator ID - NTPSpecimen slightly lipemic Lab Interpretation Abnormal (test code = 10466-7) [facility]2020[facility] 14:21:00 Test Item Value Reference Range Interpretation Comments PHOSPHORUS (BEAKER) (test code = 4.4 mg/dL 2.3-4.7 604) Central Station Operator ID - [id number] 14:21:00 Test Item Value Reference Range Interpretation Comments MAGNESIUM (BEAKER) (test code = 2.3 mg/dL 1.6-2.6 627) Central Station Operator ID - NTPCOMPREHENSIVE METABOLIC [id number] 14:21:00 Test Item Value Reference Range Interpretation Comments TOTAL PROTEIN 5.0 gm/dL 6.0-8.3 L (BEAKER) (test code = 770) ALBUMIN (BEAKER) 2.7 g/dL 3.5-5.0 L (test code = 1145) ALKALINE PHOSPHATASE 50 U/L 40-150 (BEAKER) (test code = 346) BILIRUBIN TOTAL 0.9 mg/dL 0.2-1.2 (BEAKER) (test code = 377) SODIUM (BEAKER) (test 140 meq/L 136-145 code = 381) POTASSIUM (BEAKER) 4.3 meq/L 3.5-5.1 (test code = 379) CHLORIDE (BEAKER) 109 meq/L 98-107 H (test code = 382) CO2 (BEAKER) (test 22 meq/L 22-29 code = 355) BLOOD UREA NITROGEN 18 mg/dL 7-21 (BEAKER) (test code = 354) CREATININE (BEAKER) 1.07 mg/dL 0.57-1.25 (test code = 358) GLUCOSE RANDOM 204 mg/dL 70-105 H (BEAKER) (test code = 652) CALCIUM (BEAKER) 8.7 mg/dL 8.4-10.2 (test code = 697) AST (SGOT) (BEAKER) 73 U/L 5-34 H (test code = 353) ALT (SGPT) (BEAKER) 46 U/L 6-55 (test code = 347) EGFR (BEAKER) (test 70 mL/min/1.73 ESTIMA HARINDER GFR IS code = 1092) sq m NOT ACCURATE CREATININE CLEARANCE IN PREDICTING GLOMERULAR FILTRATION RATE . ESTIMATED GFR I S NOT APPLICABLE FOR DIALYSIS PATIEN TS. Central Station Operator ID - NTPSpecimen slightly lipemicThromboelastograph (TEG)2019-12-29 14:20:00 Test Item Value Reference Range Interpretation Comments TEG Activated Clotting Time (test 3.7 4.0- 7.0 minutes L code = 84792-5) TEG Fibrinogen Activity (test 75.8 61.0- 73.0 degrees H code = 72359-0) TEG Platelet Aggregation (test 74.8 55.0- 65.0 MM H code = 76066-9) TEG Fibrinolysis (test code = 3.2 % 0-5 69036-4) TEG-H Activated Clotting Time 3.7 4.0- 7.0 minutes L (test code = 1411) TEG-H Fibrinogen Activity (test 76.4 61.0- 73.0 degrees H code = 1412) TEG-H Platelet Aggregation (test 73.0 55.0- 65.0 MM H code = 1413) TEG-H Fibrinolysis (test code = 0.5 % 0-5 1414) Lab Interpretation (test code = Abnormal 96063-8) [facility] Angeles[facility]ROMBOELASTOGRAPH (TEG)2019-12-29 14:20:00 Test Item Value Reference Range Interpretation Comments TEG ACTIVATED CLOTTING TIME 3.7 minutes 4.0-7.0 L (BEAKER) (test code = 1407) TEG FIBRINOGEN ACTIVITY (BEAKER) 75.8 degrees 61.0-73.0 H (test code = 1408) TEG PLT. AGGREGATION (BEAKER) 74.8 MM 55.0-65.0 H (test code = 1409) TEG FIBRINOLYSIS (BEAKER) (test 3.2 % 0.0-5.0 code = 1410) [facility]GH ACTIVATED CLOTTING TIME 3.7 minutes 4.0-7.0 L (BEAKER) (test code = 1411) [facility] FIBRINOGEN ACTIVITY (BEAKER) 76.4 degrees 61.0-73.0 H (test code = 1412) [facility] PLT. AGGREGATION (BEAKER) 73.0 MM 55.0-65.0 H (test code = 1413) [facility] FIBRINOLYSIS (BEAKER) (test 0.5 % 0.0-5.0 code = 1414) LACTIC ACID, [id number] 14:12:00 Test Item Value Reference Range Interpretation Comments LACTATE BLOOD ARTERIAL (2) 2.8 mmol/L 0.5-2.2 H (BEAKER) (test code = 2874) Central Station Operator ID - TWFRaprbruqfn2422-77-01 14:08:00 Test Item Value Reference Range Interpretation Comments Fibrinogen (test code = 243 mg/dl 342-240 1146-7) SUMEET (test code = SUMEET) 6 hours after starting heparin infusion and as indicated per sliding scale Lab Interpretation (test Normal code = 04525-6) [facility] 14:08:00 Test Item Value Reference Range Interpretation Comments PTT (test code = 28312-0) 26.4 22.5- 36.0 seconds Lab Interpretation (test code = Normal 74385-3) [facility] AngelesPT/[id number] 14:08:00 Test Item Value Reference Range Interpretation Comments Protime (test code = 17.0 11.9- 14.2 H 5902-2) seconds INR (test code = 1.4 <=5.9 6301-6) PTT (test code = 26.4 22.5- 36.0 58953-5) seconds SUMEET (test code = SUMEET) Effective 01/05/2019: PT Reference Range ChangeNew: 11.9-14.2 Previous: 11.7-14.7 RECOMMENDED COUMADIN/WARFARIN INR THERAPY RANGESSTANDARD DOSE: 2.0-3.0 Includes: PROPHYLAXIS for venous thrombosis, systemic embolization; TREATMENT for venous thrombosis and/or pulmonary embolus.HIGH RISK: Target INR is 2.5-3.5 for patients wiht mechanical heart valves. 6 hours after starting heparin infusion and as indicated per sliding scale6 hours after starting heparin infusion and as indicated per sliding scale Lab Interpretation Abnormal (test code = 48336-0) [facility]00 Test Item Value Reference Range Interpretation Comments FIBRINOGEN LEVEL (BEAKER) (test 243 mg/dl 225-434 code = 658) 6 hours after starting heparin infusion and as indicated per sliding scale PT/[id number] 14:08:00 Test Item Value Reference Range Interpretation Comments PROTIME (BEAKER) (test code = 17.0 seconds 11.9-14.2 H 759) INR (BEAKER) (test code = 370) 1.4 <=5.9 PARTIAL THROMBOPLASTIN TIME 26.4 seconds 22.5-36.0 (BEAKER) (test code = 760) Effective 01/05/2019: PT Reference Range ChangeNew: 11.9-14.2 Previous: 11.7- 14.7RECOMMENDED COUMADIN/WARFARIN INR THERAPY RANGESSTANDARD DOSE: 2.0-3.0 Includes: PROPHYLAXIS for venous thrombosis, systemic embolization; TREATMENT for venous thrombosis and/or pulmonary embolus.HIGH RISK: Target INR is2.5-3.5 for patients wiht mechanical heart valves.6 hours after starting heparin infusion and as indicated per sliding scale6 hours after starting heparin infusion and as indicated per sliding [id number] 14:08:00 Test Item Value Reference Range Interpretation Comments PARTIAL THROMBOPLASTIN TIME 26.4 seconds 22.5-36.0 (BEAKER) (test code = 760) Prothrombin time/[id number] 14:07:00 Test Item Value Reference Range Interpretation Comments Protime (test code = 17.0 11.9- 14.2 H 5902-2) seconds INR (test code = 1.4 <=5.9 6301-6) SUMEET (test code = SUMEET) Effective 01/05/2019: PT Reference Range ChangeNew: 11.9-14.2 Previous: 11.7-14.7 RECOMMENDED COUMADIN/WARFARIN INR THERAPY RANGESSTANDARD DOSE: 2.0-3.0 Includes: PROPHYLAXIS for venous thrombosis, systemic embolization; TREATMENT for venous thrombosis and/or pulmonary embolus.HIGH RISK: Target INR is 2.5-3.5 for patients wiht mechanical heart valves. Lab Interpretation Abnormal (test code = 82426-9) [facility] AngelesPROTHROMBIN TIME/[id number] 14:07:00 Test Item Value Reference Range Interpretation Comments PROTIME (BEAKER) (test code = 17.0 seconds 11.9-14.2 H 759) INR (BEAKER) (test code = 370) 1.4 <=5.9 Effective 01/05/2019: PT Reference Range ChangeNew: 11.9-14.2 Previous: 11.7- 14.7RECOMMENDED COUMADIN/WARFARIN INR THERAPY RANGESSTANDARD DOSE: 2.0-3.0 Includes: PROPHYLAXIS for venous thrombosis, systemic embolization; TREATMENT for venous thrombosis and/or pulmonary embolus.HIGH RISK: Target INR is2.5-3.5 for patients wiht mechanical heart valves.RAD, CHEST, 1 VIEW, NON [id number] 13:58:00Reason for exam:->s/p ACB, intubatedShould this be performed at the bedside?->YesFINAL REPORT RAD, CHEST, 1 VIEW, NON DEPT INDICATION: s/p ACB, intubated COMPARISON: Prior day's exam FINDINGS: Portable frontal view of the chest. IMPRESSION: Support Lines: ET tube tip is 3 cm superior jose. NG tube descends below the diaphragm. Central catheter tip overlies the atriocaval junction. Left-sided chest tube. Lungs and pleura: Bilateral air space edema has increased No pneumothorax.Heart and mediastinum: Stable contours. Additional findings: None. Signed: Rosa M Gibson Verified Date/Time: 12/29/2019 13:58:16 Reading Location: [facility] [employer] Reading Room CBC W/PLT COUNT & AUTO [id number] 13:56:00 Test Item Value Reference Range Interpretation Comments WHITE BLOOD CELL COUNT (BEAKER) 22.5 K/ L 3.5-10.5 H (test code = 775) RED BLOOD CELL COUNT (BEAKER) 2.56 M/ L 4.63-6.08 L (test code = 761) HEMOGLOBIN (BEAKER) (test code = 7.5 GM/DL 13.7-17.5 L 410) HEMATOCRIT (BEAKER) (test code = 22.8 % 40.1-51.0 L 411) MEAN CORPUSCULAR VOLUME (BEAKER) 89.1 fL 79.0-92.2 (test code = 753) MEAN CORPUSCULAR HEMOGLOBIN 29.3 pg 25.7-32.2 (BEAKER) (test code = 751) MEAN CORPUSCULAR HEMOGLOBIN CONC 32.9 GM/DL 32.3-36.5 (BEAKER) (test code = 752) RED CELL DISTRIBUTION WIDTH 14.3 % 11.6-14.4 (BEAKER) (test code = 412) PLATELET COUNT (BEAKER) (test 212 K/CU MM 150-450 code = 756) MEAN PLATELET VOLUME (BEAKER) 9.7 fL 9.4-12.4 (test code = 754) NUCLEATED RED BLOOD CELLS 0 /100 WBC 0-0 (BEAKER) (test code = 413) NEUTROPHILS RELATIVE PERCENT 81 % (BEAKER) (test code = 429) LYMPHOCYTES RELATIVE PERCENT 12 % (BEAKER) (test code = 430) MONOCYTES RELATIVE PERCENT 5 % (BEAKER) (test code = 431) EOSINOPHILS RELATIVE PERCENT 1 % (BEAKER) (test code = 432) BASOPHILS RELATIVE PERCENT 0 % (BEAKER) (test code = 437) NEUTROPHILS ABSOLUTE COUNT 18.18 K/ L 1.78-5.38 H (BEAKER) (test code = 670) LYMPHOCYTES ABSOLUTE COUNT 2.67 K/ L 1.32-3.57 (BEAKER) (test code = 414) MONOCYTES ABSOLUTE COUNT (BEAKER) 1.12 K/ L 0.30-0.82 H (test code = 415) EOSINOPHILS ABSOLUTE COUNT 0.32 K/ L 0.04-0.54 (BEAKER) (test code = 416) BASOPHILS ABSOLUTE COUNT (BEAKER) 0.03 K/ L 0.01-0.08 (test code = 417) IMMATURE GRANULOCYTES-RELATIVE 1 % 0-1 PERCENT (BEAKER) (test code = 2801) BLOOD GAS, [id number] 13:21:00 Test Item Value Reference Range Interpretation Comments PH ARTERIAL (BEAKER) (test code = 7.31 7.35-7.45 L 383) PCO2 ARTERIAL (BEAKER) (test code 51 mmHg 35-45 H = 384) PO2 ARTERIAL (BEAKER) (test code 173 mmHg 80-90 H = 385) O2 SATURATION ARTERIAL (BEAKER) 99.1 % 96.0-97.0 H (test code = 386) HCO3 ARTERIAL (BEAKER) (test code 25 mmol/L 21-29 = 388) BASE EXCESS ARTERIAL (BEAKER) -1.7 mmol/L -2.0-3.0 (test code = 387) PATIENT TEMPERATURE (BEAKER) 35.8 C (test code = 1818) FIO2 (BEAKER) (test code = 1819) 50.0 % OXYGEN SATURATION, [id number] 13:21:00 Test Item Value Reference Range Interpretation Comments O2 SATURATION (MEASURED) (BEAKER) 74.3 % (test code = 1455) POC ACTIVATED CLOTTING [id number] 12:27:00 Test Item Value Reference Range Interpretation Comments Activated Clotting Time 98 sec : 74 -137 seconds, (test code = 441) Baseline: TESTED AT [address], [address]: Central Station Operator/Techni bushra ID = [id number] for ZARAGOZA Y, HARISH [id number] 12:27:00 Test Item Value Reference Range Interpretation Comments ACTIVATED CLOTTING TIME 98 sec : 74 -137 seconds, (BEAKER) (test code = Baseli ne: TESTED AT 441) [facility] [address] [place] [address], [address]: Central Station Operator/Techni bushra ID = [id number] for ZARAGOZA Y, HARISH [id number] 12:27:00 Test Item Value Reference Range Interpretation Comments ACTIVATED CLOTTING TIME 516 sec : 74 -137 seconds, (BEAKER) (test code = Baseli ne: TESTED AT 441) [address], [address]: Central Station Operator/Techni bushra ID = [id number] for ZARAGOZA Y, HARISH [id number] 12:27:00 Test Item Value Reference Range Interpretation Comments ACTIVATED CLOTTING TIME 483 sec : 74 -137 seconds, (BEAKER) (test code = Ernai ne: TESTED AT 441) [address], [address]: Central Station Operator/Techni bushra ID = [id number] for ZARAGOZA Y, HARISH [id number] 12:27:00 Test Item Value Reference Range Interpretation Comments ACTIVATED CLOTTING TIME 643 sec : 74 -137 seconds, (BEAKER) (test code = Ernai ne: TESTED AT 441) [address], [address]: Central Station Operator/Techni bushra ID = [id number] for ZARAGOZA Y, HARISH [id number] 12:27:00 Test Item Value Reference Range Interpretation Comments ACTIVATED CLOTTING TIME 103 sec : 74 -137 seconds, (BEAKER) (test code = Kevin ne: TESTED AT [facility]) [address], [facility] 30: Central Station Operator/Techni bushra ID = [id number] for ZARAGOZA Y, HARISH BLOOD GAS, [id number] 12:08:00 Test Item Value Reference Range Interpretation Comments PH ARTERIAL (BEAKER) (test code = 7.34 7.35-7.45 L 383) PCO2 ARTERIAL (BEAKER) (test code 43 mmHg 35-45 = 384) PO2 ARTERIAL (BEAKER) (test code 245 mmHg 80-90 H = 385) O2 SATURATION ARTERIAL (BEAKER) 99.5 % 96.0-97.0 H (test code = 386) HCO3 ARTERIAL (BEAKER) (test code 23 mmol/L 21-29 = 388) BASE EXCESS ARTERIAL (BEAKER) -2.7 mmol/L -2.0-3.0 L (test code = 387) PATIENT TEMPERATURE (BEAKER) 36.0 C (test code = 1818) FIO2 (BEAKER) (test code = 1819) 100.0 % GLUCOSE-STAT [id number] 12:08:00 Test Item Value Reference Range Interpretation Comments GLUCOSE RANDOM (BEAKER) (test code 203 mg/dL 70-110 H = 652) HGB/HCT (H&H) - STAT [id number] 12:08:00 Test Item Value Reference Range Interpretation Comments HEMOGLOBIN (BEAKER) (test code = 8.7 g/dL 13.0-16.8 L 410) HEMATOCRIT (BEAKER) (test code = 26.0 % 40.0-50.0 L 411) THROMBOELASTOGRAPH (TEG)[id number] 12:08:00 Test Item Value Reference Range Interpretation Comments TEG ACTIVATED CLOTTING TIME 4.2 minutes 4.0-7.0 (BEAKER) (test code = 1407) TEG FIBRINOGEN ACTIVITY (BEAKER) 75.0 degrees 61.0-73.0 H (test code = 1408) TEG PLT. AGGREGATION (BEAKER) 66.2 MM 55.0-65.0 H (test code = 1409) TGH ACTIVATED CLOTTING TIME 4.0 minutes 4.0-7.0 (BEAKER) (test code = 1411) TGH FIBRINOGEN ACTIVITY (BEAKER) 77.4 degrees 61.0-73.0 H (test code = 1412) TGH PLT. AGGREGATION (BEAKER) 70.2 MM 55.0-65.0 H (test code = 1413) SODIUM NA-STAT [id number] 12:07:00 Test Item Value Reference Range Interpretation Comments SODIUM (BEAKER) (test code = 381) 135 meq/L 136-145 L POTASSIUM-STAT [id number] 12:07:00 Test Item Value Reference Range Interpretation Comments POTASSIUM (BEAKER) (test code = 4.0 meq/L 3.6-5.5 379) CALCIUM, [id number] 12:07:00 Test Item Value Reference Range Interpretation Comments CALCIUM IONIZED (BEAKER) (test 1.17 mmol/L 1.12-1.27 code = 698) PH, BLOOD (BEAKER) (test code = 7.33 1810) PROTHROMBIN [id number] 11:39:00 Test Item Value Reference Range Interpretation Comments PROTIME (BEAKER) (test code = 19.0 seconds 11.9-14.2 H 759) INR (BEAKER) (test code = 370) 1.6 <=5.9 Effective 01/05/2019: PT Reference Range ChangeNew: 11.9-14.2 Previous: 11.7- 14.7RECOMMENDED COUMADIN/WARFARIN INR THERAPY RANGESSTANDARD DOSE: 2.0-3.0 Includes: PROPHYLAXIS for venous thrombosis, systemic embolization; TREATMENT for venous thrombosis and/or pulmonary embolus.HIGH RISK: Target INR is2.5-3.5 for patients wiht mechanical heart valves.[id number] 11:39:00 Test Item Value Reference Range Interpretation Comments PARTIAL THROMBOPLASTIN TIME 25.9 seconds 22.5-36.0 (BEAKER) (test code = 760) [id number] 11:39:00 Test Item Value Reference Range Interpretation Comments FIBRINOGEN LEVEL (BEAKER) (test 202 mg/dl 225-434 L code = 658) CALCIUM, [id number] 11:33:00 Test Item Value Reference Range Interpretation Comments CALCIUM IONIZED (BEAKER) (test 1.15 mmol/L 1.12-1.27 code = 698) PH, BLOOD (BEAKER) (test code = 7.33 1810) BLOOD GAS, [id number] 11:33:00 Test Item Value Reference Range Interpretation Comments PH ARTERIAL (BEAKER) (test code = 7.36 7.35-7.45 383) PCO2 ARTERIAL (BEAKER) (test code 42 mmHg 35-45 = 384) PO2 ARTERIAL (BEAKER) (test code 295 mmHg 80-90 H = 385) O2 SATURATION ARTERIAL (BEAKER) 99.7 % 96.0-97.0 H (test code = 386) HCO3 ARTERIAL (BEAKER) (test code 23 mmol/L 21-29 = 388) BASE EXCESS ARTERIAL (BEAKER) -2.6 mmol/L -2.0-3.0 L (test code = 387) PATIENT TEMPERATURE (BEAKER) 35.3 C (test code = 1818) FIO2 (BEAKER) (test code = 1819) 100.0 % GLUCOSE-STAT [id number] 11:33:00 Test Item Value Reference Range Interpretation Comments GLUCOSE RANDOM (BEAKER) (test code 210 mg/dL 70-110 H = 652) HGB/HCT (H&H) - STAT [id number] 11:33:00 Test Item Value Reference Range Interpretation Comments HEMOGLOBIN (BEAKER) (test code = 7.8 g/dL 13.0-16.8 L 410) HEMATOCRIT (BEAKER) (test code = 23.0 % 40.0-50.0 L 411) SODIUM NA-STAT [id number] 11:31:00 Test Item Value Reference Range Interpretation Comments SODIUM (BEAKER) (test code = 381) 135 meq/L 136-145 L POTASSIUM-STAT [id number] 11:31:00 Test Item Value Reference Range Interpretation Comments POTASSIUM (BEAKER) (test code = 4.2 meq/L 3.6-5.5 379) Platelet [id number] 11:29:00 Test Item Value Reference Range Interpretation Comments Platelets (test code = 200 150- 450 K/CU MM 777-3) SUMEET (test code = SUMEET) Central Station Operator ID - [id number] Lab Interpretation (test Normal code = 02750-8) [facility] [id number] 11:29:00 Test Item Value Reference Range Interpretation Comments PLATELET COUNT (BEAKER) (test 200 K/CU MM 150-450 code = 756) Central Station Operator ID - [id number] GAS, [id number] 11:08:00 Test Item Value Reference Range Interpretation Comments PH ARTERIAL (BEAKER) (test code = 7.36 7.35-7.45 383) PCO2 ARTERIAL (BEAKER) (test code 41 mmHg 35-45 = 384) PO2 ARTERIAL (BEAKER) (test code 238 mmHg 80-90 H = 385) O2 SATURATION ARTERIAL (BEAKER) 99.5 % 96.0-97.0 H (test code = 386) HCO3 ARTERIAL (BEAKER) (test code 23 mmol/L 21-29 = 388) BASE EXCESS ARTERIAL (BEAKER) -2.4 mmol/L -2.0-3.0 L (test code = 387) PATIENT TEMPERATURE (BEAKER) 35.5 C (test code = 1818) FIO2 (BEAKER) (test code = 1819) 100.0 % SODIUM NA-STAT [id number] 11:08:00 Test Item Value Reference Range Interpretation Comments SODIUM (BEAKER) (test code = 381) 134 meq/L 136-145 L GLUCOSE-STAT [id number] 11:08:00 Test Item Value Reference Range Interpretation Comments GLUCOSE RANDOM (BEAKER) (test code 222 mg/dL 70-110 H = 652) HGB/HCT (H&H) - STAT [id number] 11:08:00 Test Item Value Reference Range Interpretation Comments HEMOGLOBIN (BEAKER) (test code = 7.9 g/dL 13.0-16.8 L 410) HEMATOCRIT (BEAKER) (test code = 23.0 % 40.0-50.0 L 411) CALCIUM, [id number] 11:08:00 Test Item Value Reference Range Interpretation Comments CALCIUM IONIZED (BEAKER) (test 0.98 mmol/L 1.12-1.27 L code = 698) PH, BLOOD (BEAKER) (test code = 7.34 1810) POTASSIUM-STAT [id number] 11:07:00 Test Item Value Reference Range Interpretation Comments POTASSIUM (BEAKER) (test code = 4.0 meq/L 3.6-5.5 379) HEMOGLOBIN [id number] 11:05:00 Test Item Value Reference Range Interpretation Comments HEMOGLOBIN A1C (BEAKER) (test code = 7.5 % 4.3-6.1 H 368) POTASSIUM-STAT [id number] 10:26:00 Test Item Value Reference Range Interpretation Comments POTASSIUM (BEAKER) (test code = 4.7 meq/L 3.6-5.5 379) BLOOD GAS, [id number] 10:26:00 Test Item Value Reference Range Interpretation Comments PH ARTERIAL (BEAKER) (test code = 7.35 7.35-7.45 383) PCO2 ARTERIAL (BEAKER) (test code 44 mmHg 35-45 = 384) PO2 ARTERIAL (BEAKER) (test code 233 mmHg 80-90 H = 385) O2 SATURATION ARTERIAL (BEAKER) 99.5 % 96.0-97.0 H (test code = 386) HCO3 ARTERIAL (BEAKER) (test code 24 mmol/L 21-29 = 388) BASE EXCESS ARTERIAL (BEAKER) -1.8 mmol/L -2.0-3.0 (test code = 387) PATIENT TEMPERATURE (BEAKER) 35.2 C (test code = 1818) FIO2 (BEAKER) (test code = 1819) 70.0 % SODIUM NA-STAT [id number] 10:26:00 Test Item Value Reference Range Interpretation Comments SODIUM (BEAKER) (test code = 381) 133 meq/L 136-145 L GLUCOSE-STAT [id number] 10:26:00 Test Item Value Reference Range Interpretation Comments GLUCOSE RANDOM (BEAKER) (test code 229 mg/dL 70-110 H = 652) HGB/HCT (H&H) - STAT [id number] 10:26:00 Test Item Value Reference Range Interpretation Comments HEMOGLOBIN (BEAKER) (test code = 8.2 g/dL 13.0-16.8 L 410) HEMATOCRIT (BEAKER) (test code = 24.0 % 40.0-50.0 L 411) POTASSIUM-STAT [id number] 10:01:00 Test Item Value Reference Range Interpretation Comments POTASSIUM (BEAKER) (test code = 3.9 meq/L 3.6-5.5 379) BLOOD GAS, [id number] 10:01:00 Test Item Value Reference Range Interpretation Comments PH ARTERIAL (BEAKER) (test code = 7.37 7.35-7.45 383) PCO2 ARTERIAL (BEAKER) (test code 36 mmHg 35-45 = 384) PO2 ARTERIAL (BEAKER) (test code 363 mmHg 80-90 H = 385) O2 SATURATION ARTERIAL (BEAKER) 99.8 % 96.0-97.0 H (test code = 386) HCO3 ARTERIAL (BEAKER) (test code 23 mmol/L 21-29 = 388) BASE EXCESS ARTERIAL (BEAKER) -4.4 mmol/L -2.0-3.0 L (test code = 387) PATIENT TEMPERATURE (BEAKER) 28.4 C (test code = 1818) FIO2 (BEAKER) (test code = 1819) 80.0 % SODIUM NA-STAT [id number] 10:01:00 Test Item Value Reference Range Interpretation Comments SODIUM (BEAKER) (test code = 381) 134 meq/L 136-145 L GLUCOSE-STAT [id number] 10:01:00 Test Item Value Reference Range Interpretation Comments GLUCOSE RANDOM (BEAKER) (test code 210 mg/dL 70-110 H = 652) HGB/HCT (H&H) - STAT [id number] 10:01:00 Test Item Value Reference Range Interpretation Comments HEMOGLOBIN (BEAKER) (test code = 8.2 g/dL 13.0-16.8 L 410) HEMATOCRIT (BEAKER) (test code = 24.0 % 40.0-50.0 L 411) CALCIUM, [id number] 08:20:00 Test Item Value Reference Range Interpretation Comments CALCIUM IONIZED (BEAKER) (test 1.12 mmol/L 1.12-1.27 code = 698) PH, BLOOD (BEAKER) (test code = 7.36 1810) [id number] 08:19:13Roshni Vincent MD - 12/29/2019 8:19 AM CDT TEEDate: 12/29/2019 8:19 AM Sex: Male Location: OR Requesting Physician: Rodri Nguyen MD Examiner: Roshni Vincent MD Indication: ACB Intubated Sedated Patient screened foresoph disease: Yes Insertion: easy Probe Type: multiplane Modalities: 2D, CFM, CWD and PWD Pre Intervention Summary: 64 yo M presenting for ACB and WALT ligation with Dr. Nguyen.Aorta: no aneurysm, no dissection, < 2 mm plaques in descendingAV: trileaflet morphology, mild calcifications, no aorticstenosis, no aortic regurgitationLV: mildly enlarged chamber size, moderate LVH, low-normal systolicfunction (EF >50% by qualitative assessment), no RWMA, no thrombusMV: normal morphology, mild mitral regurgitation, no mitral stenosisLA: no WALT thrombus, normal size and functionPV: limited visualizationRV: normal sized chamber, normal function (TAPSE > 2 cm), no thrombusTV: normal morphology, trace tricuspid regurgitationRA: no thrombusNo SAMNo pericardial effusionNo PFO by color dopper flowAll findings communicated to surgical team. Post Intervention Summary: S/p 2v ACB and WALT ligationNE @ 2No aortic dissectionLVEF > 60% by qualitative assessment RV function normalNo SAMNo pericardialeffusionS/p WALT ligation - no flow through WALT observedOtherwise exam [facility] BLOOD GAS, [id number] 08:19:00 Test Item Value Reference Range Interpretation Comments PH ARTERIAL (BEAKER) (test code = 7.38 7.35-7.45 383) PCO2 ARTERIAL (BEAKER) (test code 40 mmHg 35-45 = 384) PO2 ARTERIAL (BEAKER) (test code 387 mmHg 80-90 H = 385) O2 SATURATION ARTERIAL (BEAKER) 99.8 % 96.0-97.0 H (test code = 386) HCO3 ARTERIAL (BEAKER) (test code 23 mmol/L 21-29 = 388) BASE EXCESS ARTERIAL (BEAKER) -2.1 mmol/L -2.0-3.0 L (test code = 387) PATIENT TEMPERATURE (BEAKER) 36.0 C (test code = 1818) FIO2 (BEAKER) (test code = 1819) 100.0 % GLUCOSE-STAT [id number] 08:19:00 Test Item Value Reference Range Interpretation Comments GLUCOSE RANDOM (BEAKER) (test code 200 mg/dL 70-110 H = 652) HGB/HCT (H&H) - STAT [id number] 08:19:00 Test Item Value Reference Range Interpretation Comments HEMOGLOBIN (BEAKER) (test code = 12.9 g/dL 13.0-16.8 L 410) HEMATOCRIT (BEAKER) (test code = 38.0 % 40.0-50.0 L 411) SODIUM NA-STAT [id number] 08:18:00 Test Item Value Reference Range Interpretation Comments SODIUM (BEAKER) (test code = 381) 138 meq/L 136-145 POTASSIUM-STAT [id number] 08:18:00 Test Item Value Reference Range Interpretation Comments POTASSIUM (BEAKER) (test code = 3.5 meq/L 3.6-5.5 L 379) Carotid doppler [id number] 07:47:38Ejection [facility]ractionSNELL [facility] E[facility] HEART[facility] MKCKESSON CPACSRight Impression1. The internal, common and external carotid arteries are within normallimits.2. The vertebral artery flow is antegrade .3. The subclavian artery is within normal limits where visualized.Left Impression1. The internal, common and external carotid arteries are within normallimits.2. The vertebral artery flow is antegrade .3. The subclavian artery is within normal limits where visualized. Conclusions Summary Carotid duplex scanning a nd color flow imaging were performed bilaterally. The [...] Diameters are measured in cm Carotid Right Measurements+ -+----+----+-----+ + + +!Location !PSV !EDV !Angle!%Stenosis 2D!%Stenosis Doppler!Tortuosity !+ +----+----+-----+ + +- +!Prox CCA !35.6!12.9!0 ! ! ! !+ --+----+----+-----+ + + +!Dist CCA !84.8!24 !60 ! ! ! !+ +----+----+-----+ + + +!Prox ICA !92.4!26.2!60 ! !Normal ! !+ ---+----+----+-----+ + + +!Dist ICA !80.9!24.7!60 ! ! ! !+ +----+----+-----+ + + +!Prox ECA !132 !27.2!60 ! ! ! !+ ----+----+----+-----+ + + +!Prox Subclavian!213 !44.7!60 ! ! ! !+ +----+----+-----+ + + + - There is antegrade vertebral flow noted on the right side. - Additional Measurements:ICAPSV/CCAPSV 1.09.ICAEDV/CCAEDV 2.03. Carotid Left Measurements+ +----+----+----- + + + +!Location !PSV !EDV !Angle!%Stenosis 2D!%Stenosis Doppler!Tortuosity !+ +----+----+-----+ + + +!Pr oxCCA !129 !31.2!60 ! ! ! !+ +----+----+---- -+ + + +!Dist CCA !71.9!17.6!60 ! ! ! !+ +----+----+-----+ + + +!Pr ox ICA !76.9!22 !60 ! !Normal ! !+ +----+----+--- --+ + + +!Dist ICA !54.9!26.4!60 ! ! ! !+ +----+----+-----+ + + +!Pr ox ECA !66.4!14.3!60 ! ! ! !+ +----+----+-- ---+ + + +!Vertebral !35.1! !60 ! ! ! !+ +----+----+-----+ + + +!Pr ox Subclavian!123 !24.3!60 ! ! ! !+ +----+----+-----+ + + + - There is antegrade vertebral flow noted on the left side. - Additional Measurements:ICAPSV/CCAPSV 1.07.ICAEDV/CCAEDV 0.85. Interface, External RisIn - 12/29/2019 7:47 AM [facility] - Carotid Duplex Study Demographics Patient Name AGUEDA COOK Date of Study 12/28/2019 Age 64 Visit Number [id number] Gender Male Accession Number [id number] Dateof 1955 Referring Torrey Ponce Room Number SCPR Physician In Flight Technician Adele Dawson Interpreting Vicky Oates T Physician ProcedureType of Study: Cerebral: Carotid, CAROTID DOPPLER, BILATERAL.Indications for Study:Pre- operational evaluation.Patient Status:DAVID.Study Location:Portable.Technical Quality:Technically Difficult.Risk FactorsHistory of Disease+ --+----+ +!Diagnosis !Date!Comments !+ +----+ +!Hi story/Risk Factors: ! !Morbid obesity !! ! !CAD !+ +----+ +ImpressionsRight Impression1. The internal, common and external carotid arteries are within normallimits.2. The vertebral artery flow is antegrade .3. The subclavian artery is within normal limits where visualized.Left Impression1. The internal, common and external carotid arteries are within normallimits.2. The vertebral artery flow is antegrade .3. The subclavian artery is within normal limits where visualized. Conclusions Summary Carotid duplex scanning and color flow imaging were performed bilaterally. The arteries were difficult to visualize due to body habitus and no areas of st enosis were found bilaterally. Doppler flow velocities were within normal range bilaterally. The vertebral artery flow was antegrade and normal bilaterally. The subclavian arteries were patent with normal flow bilaterally where visualized. Signature Velocities are measured in cm/s ; Diameters are measured in cmCarotid Right Measurements+ +----+----+-----+ -+ + +!Location !PSV !EDV !Angle!%Stenosis 2D!%Stenosis Doppler!Tortuosity !+ +----+----+-----+ + + +!Pr ox CCA !35.6!12.9!0 ! ! ! !+ +----+----+-----+ --+ + +!Dist CCA !84.8!24 !60 ! ! ! !+ +----+----+-----+ + + +!Pr ox ICA !92.4!26.2!60 ! !Normal ! !+ +----+----+-----+--------- ---+ + +!Dist ICA !80.9!24.7!60 ! ! ! !+ +----+----+-----+ + + +!Pr ox ECA!132 !27.2!60 ! ! ! !+ +----+----+-----+-------- ----+ + +!Prox Subclavian!213 !44.7!60 ! ! ! !+ +----+----+-----+ + + + - There is antegrade vertebral flow noted on the right side. - Additional Measurements:ICAPSV/CCAPSV 1.09.ICAEDV/CCAEDV 2.03.Carotid Left Measurements+ +----+----+-----+ + + +!Location !PSV !EDV !Angle!%Stenosis 2D!%Stenosis Doppler!Tortuosity !+ ---+----+----+-----+ + + +!Prox CCA !129 !31.2!60 ! ! ! !+ +----+----+-----+ + + +!Dist CCA !71.9!17.6!60 ! ! ! !+ ----+----+----+-----+ + + +!Prox ICA !76.9!22 !60 ! !Normal ! !+ +----+----+-----+ + -+ +!Dist ICA !54.9!26.4!60 ! ! ! !+ -----+----+----+-----+ + + +!Prox ECA !66.4!14.3!60 ! ! ! !+ +----+----+-----+ + --+ +!Vertebral !35.1! !60 ! ! ! !+--------- ------+----+----+-----+ + + +!Prox Subclavian!123 !24.3!60 ! ! ! !+ +----+----+-----+ + + + - There is antegrade vertebral flow noted on the left side. - Additional Measurements:ICAPSV/CCAPSV 1.07.ICAEDV/CCAEDV 0.85.[facility] Vein Mapping Legs [id number] 07:47:22Ejection FractionSNELL J. [facility]FIELD [facility] ECHO HEARTLAB MKCKESSON CPACSRight Impression1. There is no deep venous venous obstruction in the common femoral,profunda femoral, femoral, popliteal, posterior tibial or peronealveins.2. There is no superficial venous obstruction in the great saphenous vein.Left Impression1. There is no deep venous obstruction in the common femoral, profundafemoral, femoral, popliteal, posterio r tibial or peroneal veins.2. There is no superficial venous obstruction in the great saphenous vein. Conclusions Summary Venous duplex imaging and compression of the bilateral lower extremities wasperformed. The veins were adequately visualized. The bilateral venous systems were patent and compressible with no evidence of thrombus. Superficial venous measurements are documented below. Signature Velocities are measured in cm/s ; Diameters are measured in cm LE Vein MappingSuperficial - Great Saphenous Vein Right Left + + + + + + + + !Location ! !Diameter !Depth ! !Diameter !Depth ! + + + + + + + + !Sapheno Femoral Junction ! !0.73 ! ! !0.97 ! ! + + + + + + + +!GSV High Thigh ! !0.61 ! ! !0.73 ! ! +------ + + + + + + + !GSV Mid Thigh ! !0.57 ! ! !0.32 ! ! + + + + + + + + !GSV Low Thigh ! !0.53 ! ! !0.44 ! ! + + + + + +----- + + !GSV Knee ! !0.51 ! [...] + + + + !GSV Ankle ! !0.2! ! !0.33 ! ! +--- + + + + + + + Interface, External Ris In - 12/29/2019 7:47 AM [facility] LAB - Lower Extremities Vein Mapping Demographics Patient Name AGUEDA COOK Date of Study 12/28/2019 Age 64 Visit Number [id number] Gender Male Date of 1955 Nicho Ponce Room Number [facility] Physician In Flight Technician Adele Dawson Interpreting Vicky Oates, T Physician ProcedureType of Study: Veins: Lower Extremity Vein Mapping, VEIN MAPPING, LOWER EXTREMITY, BILATERAL. Indications for Study:Pre-op evaluation.Patient Status:Routine.Study Location:Portable.Technical Quality:Adequate visualization.Risk FactorsHistory of Disease+ +----+ --+!Diagnosis !Date!Comments !+ --+----+ +!History/Risk Factors: ! !Morbid obesity !! ! !CAD !+ +----+ +ImpressionsRight Impression1. There is no deep venous venous obstruction in the common femoral,profunda femoral, femoral, popliteal, posterior tibial or peroneal veins.2. There is no superficial venous obstruction in the great saphenous vei n.Left Impression1. There is no deep venous obstruction in the common femoral, profundafemoral, femoral, popliteal, posterior tibial or peroneal veins.2. There is no superficial venous obstruction in the great saphenous vein. Conclusions Summary Venous duplex imaging and compression of the bilaterallower extremities was performed. The veins were adequately visualized. The bilateral venous systems were patent and compressible with no evidence of thrombus. Superficial venous measurements are documented below. Signature Velocities are measured in cm/s ; Diameters are measured in cmLE Vein Mapping Superficial - Great Saphenous Vein Right Left + + + + + + + + !Location ! !Diameter !Depth ! !Diameter !Depth ! + + + + + + + + !Sapheno Femoral Junction ! !0.73 ! ! !0.97 ! ! + + +-------- + + + + + !GSV High [...] ! ! !0.29 ! ! + + +----- + + + + + !GSV Ankle ! !0.2 ! ! !0.33 ! ! + + + + + + + +[facility], NON [id number] 06:14:00Reason for exam:- >pre op screenShould this be performed at the bedside?->YesFINAL REPORT CLINICAL INDICATION: Preoperative evaluation, surgery unspecified Comparison: 12/28/2019 The examination is limited by low lung volumes, patient body habitus and lordotic positioning. The cardiomediastinal contours are stable and grossly unremarkable. There is no focal consolidation, pneumothorax, large pleural effusion or evidence of overt pulmonary edema. There is no acute bony abnormality. Signed: Evie Alvares MDReport Verified Date/Time: 12/29/2019 06:14:22 [facility]2019-12-29 05:55:00 Test Item Value Reference Range Interpretation Comments WHITE BLOOD CELL COUNT (BEAKER) 12.5 K/ L 3.5-10.5 H (test code = 775) RED BLOOD CELL COUNT (BEAKER) 4.37 M/ L 4.63-6.08 L (test code = 761) HEMOGLOBIN (BEAKER) (test code = 12.4 GM/DL 13.7-17.5 L 410) HEMATOCRIT (BEAKER) (test code = 37.3 % 40.1-51.0 L 411) MEAN CORPUSCULAR VOLUME (BEAKER) 85.4 fL 79.0-92.2 (test code = 753) MEAN CORPUSCULAR HEMOGLOBIN 28.4 pg 25.7-32.2 (BEAKER) (test code = 751) MEAN CORPUSCULAR HEMOGLOBIN CONC 33.2 GM/DL 32.3-36.5 (BEAKER) (test code = 752) RED CELL DISTRIBUTION WIDTH 14.0 % 11.6-14.4 (BEAKER) (test code = 412) PLATELET COUNT (BEAKER) (test 181 K/CU MM 150-450 code = 756) MEAN PLATELET VOLUME (BEAKER) 8.7 fL 9.4-12.4 L (test code = 754) NUCLEATED RED BLOOD CELLS 0 /100 WBC 0-0 (BEAKER) (test code = 413) RAD, CHEST, 1 VIEW, NON [id number] 03:04:00Reason for exam:->SOBShould this be performed at the bedside?->YesFINAL REPORT History: Shortness of breath. Comparison: None. Findings: 2 frontal images of the chest is submitted. The cardiomediastinal contours are unremarkable. There is no focal consolidation, pneumothorax, large pleural effusion or evidence of overt pulmonary edema. There is no acute bony abnormality. Impression: No acute abnormality. Signed: Evie Alvares Verified Date/Time: 12/29/2019 03:04:51 [id number] 23:45:00 Test Item Value Reference Range Interpretation Comments ACTIVATED CLOTTING TIME 76 sec : 74 -137 seconds, (BEAKER) (test code = Baseli ne: TESTED AT 441) [facility] [address] [place], [address]: Central Station Operator/Techni bushra ID = [id number] for Fr ancisco, Kam Type and screen, automated ([facility] Lab)2019-12-28 20:32:00 Test Item Value Reference Range Interpretation Comments ABO/RH AUTOMATED (BEAKER) (test O POSITIVE code = 2260) Ab Scrn (test code = 890-4) [facility]GATIVE [facility]As[facility]omatic [facility]2019-12-28 20:30:00 Test Item Value Reference Range Interpretation Comments SARS-COV2/RT-PCR Not Detected Not Detected, (test code = Negative 06541-5) SARS-COV-2 [facility] PERFORMING LAB (test code = 65728-8) SUMEET (test code = Negative results do not SUMEET) preclude SARS-CoV-2 infection and should not be used as [...] of the Act. Fact Sheet for Healthcare Providers:https://www.[employer]/Documents/Xper t%20Xpress%20SARS%20CoV- 2/Fact%20Sheets/302-3802 %26SDEB-TXL-3%20HEALTHCA RE%20PROVIDERS%20FACT%20 SHEET.pdf Fact Sheet for Healthcare Patients:https://www.[employer]/Documents/Xpert %20Xpress%20SARS%20CoV-2 /Fact%20Sheets/302-3801% 50NTHV-DWA-9%20PATIENT%2 0FACT%20SHEET.pdf Performing Laboratory:[facility] [place] [address] [facility] ([facility])2019-12-28 20:30:00 Test Item Value Reference Range Interpretation Comments SARS-COV2/RT-PCR (test Not Detected Not Detected, Negative code = 1672035) SARS-COV-2 PERFORMING LAB [facility] (test code = 2581646) Negative results do not preclude SARS-CoV-2 infection and should not be used as the sole basis for patient management decisions. Negative results must be combined with clinical observations, patient history, and epidemiological information. A false negative result may occur if a specimen is improperly collected, transported or handled.The limit of detection for this assay is 250 copies/mL.This SARS CoV-2 test is a rapid, real-time RT-PCR test intended for the qualitative detection of nucleic acid from SARS-CoV-2 in a nasopharyngeal swab specimen collected from individuals suspected of COVID-19 by their healthcare provider.This test has not been Food and Drug [...] is revoked under Section 564(g) of the Act.Fact Sheet for Healthcare Pro viders:https://www.[employer]/Documents/Xpert%20Xpress%20SARS%20CoV-2/Fact%20Sh eets/302-3802%54UANP-WWK-0%20HEALTHCARE%20PROVIDERS%20FACT%20SHEET.pdfFact Sheet for Healthcare Patients:https://www.[employer]/Documents/Xpert%20Xpress%20SARS%20CoV-2/Fact%20Sheets/302-3801%20SARS-COV -2%20PATIENT%20FACT%20SHEET.pdfPerforming Laboratory:[facility], [place] [address]YUUJD, [id number] 19:50:00 Test Item Value Reference Range Interpretation Comments ABO Grouping (test code = 2588) O Rh Factor (test code = 2589) POS [facility] [id number] 19:48:00 Test Item Value Reference Range Interpretation Comments Troponin I (test code = <0.01 0-0.03 41369-3) SUMEET (test code = SUMEET) Troponin I (TnI) levels must be interpreted in the context of the presenting symptoms and the clinical findings. Elevated TnI levels indicate myocardial damage, but are not specific for ischemic heart disease. Elevated TnI levels are seen in patients with other cardiac conditions (including myocarditis and congestive heart failure), and slight TnI elevations occur in patients with other conditions, including sepsis, renal failure, acidosis, acute neurological disease, and persistent tachyarrhythmia.Opera tor ID - BS Lab Interpretation (test Normal code = 60169-7) [facility] [id number] 19:48:00 Test Item Value Reference Range Interpretation Comments TROPONIN I (BEAKER) (test code = 397) < ng/mL 0.00-0.03 Troponin I (TnI) levels must be interpreted in the context of the presenting symptoms and the clinical findings. Elevated TnI levels indicate myocardial damage, but are not specific for ischemic heart disease. Elevated TnI levels are seen in patients with other cardiac conditions (including myocarditis and congestive heart failure), and slight TnI elevations occur in patients with other conditions, including sepsis, renal failure, acidosis, acute neurological disease, and persistent tachyarrhythmia.Central Station Operator ID - [id number] 19:42:00 Test Item Value Reference Range Interpretation Comments MAGNESIUM (BEAKER) 1.8 mg/dL 1.6-2.6 Specimen slightly (test code = 627) hemolyzed Central Station Operator ID - BSBASIC METABOLIC [id number] 19:42:00 Test Item Value Reference Range Interpretation Comments SODIUM (BEAKER) 136 meq/L 136-145 (test code = 381) POTASSIUM (BEAKER) 3.7 meq/L 3.5-5.1 Specimen slightly (test code = 379) hemolyzed CHLORIDE (BEAKER) 107 meq/L 98-107 (test code = 382) CO2 (BEAKER) (test 18 meq/L 22-29 L code = 355) BLOOD UREA NITROGEN 13 mg/dL 7-21 (BEAKER) (test code = 354) CREATININE (BEAKER) 1.05 mg/dL 0.57-1.25 Specimen slightly (test code = 358) hemolyzed GLUCOSE RANDOM 248 mg/dL 70-105 H (BEAKER) (test code = 652) CALCIUM (BEAKER) 8.8 mg/dL 8.4-10.2 (test code = 697) EGFR (BEAKER) (test 71 mL/min/1.73 ESTIMA HARINDER GFR IS code = 1092) sq m NOT ACCURATE CREATININE CLEARANCE IN PREDICTING GLOMERULAR FILTRATION RATE . ESTIMATED GFR I S NOT APPLICABLE FOR DIALYSIS PATIEN TS. Central Station Operator ID - BSLIPID [id number] 19:42:00 Test Item Value Reference Range Interpretation Comments TRIGLYCERIDES (BEAKER) 357 mg/dL Speci men slightly (test code = 540) hemolyzed CHOLESTEROL (BEAKER) 211 mg/dL Specime n slightly (test code = 631) hemolyzed HDL CHOLESTEROL (BEAKER) 37 mg/dL (test code = 976) LDL CHOLESTEROL 103 mg/dL CALCULATED (BEAKER) (test code = 633) Triglyceride Reference Range: Low Risk <150 Borderline 150-199 High Risk 200-499 Very High Risk >=500Cholesterol Reference Range: Low Risk <200 Borderline 200-239 High Risk >240HDL Cholesterol Reference Range: Low Risk >=60 High Risk <40LDL Cholesterol Reference Range: Optimal <100 Near Optimal 100-129 Borderline 130-159 High 160-189 Very High >=190 Central Station Operator ID - [id number] 19:41:00 Test Item Value Reference Range Interpretation Comments PROTIME (BEAKER) (test code = 14.1 seconds 11.9-14.2 759) INR (BEAKER) (test code = 370) 1.1 <=5.9 PARTIAL THROMBOPLASTIN TIME 30.4 seconds 22.5-36.0 (BEAKER) (test code = 760) Effective 01/05/2019: PT Reference Range ChangeNew: 11.9-14.2 Previous: 11.7- 14.7RECOMMENDED COUMADIN/WARFARIN INR THERAPY RANGESSTANDARD DOSE: 2.0-3.0 Includes: PROPHYLAXIS for venous thrombosis, systemic embolization; TREATMENT for venous thrombosis and/or pulmonary embolus.HIGH RISK: Target INR is2.5-3.5 for patients wiht mechanical heart valves.Prior to initiating heparinPrior to initiating [id number] 19:41:00 Test Item Value Reference Range Interpretation Comments PARTIAL THROMBOPLASTIN TIME 30.4 seconds 22.5-36.0 (BEAKER) (test code = 760) CBC (HEMOGRAM ONLY)2019-12-28 19:26:00 Test Item Value Reference Range Interpretation Comments WHITE BLOOD CELL COUNT (BEAKER) 10.9 K/ L 3.5-10.5 H (test code = 775) RED BLOOD CELL COUNT (BEAKER) 4.86 M/ L 4.63-6.08 (test code = 761) HEMOGLOBIN (BEAKER) (test code = 13.4 GM/DL 13.7-17.5 L 410) HEMATOCRIT (BEAKER) (test code = 41.5 % 40.1-51.0 411) MEAN CORPUSCULAR VOLUME (BEAKER) 85.4 fL 79.0-92.2 (test code = 753) MEAN CORPUSCULAR HEMOGLOBIN 27.6 pg 25.7-32.2 (BEAKER) (test code = 751) MEAN CORPUSCULAR HEMOGLOBIN CONC 32.3 GM/DL 32.3-36.5 (BEAKER) (test code = 752) RED CELL DISTRIBUTION WIDTH 13.7 % 11.6-14.4 (BEAKER) (test code = 412) PLATELET COUNT (BEAKER) (test 173 K/CU MM 150-450 code = 756) MEAN PLATELET VOLUME (BEAKER) 8.5 fL 9.4-12.4 L (test code = 754) NUCLEATED RED BLOOD CELLS 0 /100 WBC 0-0 (BEAKER) (test code = 413) [id number] 22:00:00 Test Item Value Reference Range Interpretation Comments GLUBED (test code = GLUBED) 238 mg/dL 60-125 H - XR KNEE 1 OR 2 V [id number] 11:25:00 Patient Name: AGUEDA COOK Unit No: [id number] EXAMS: CPT CODE: [id number] XR KNEE 1 OR 2 [place] [address] LEFT KNEE 2 VIEWS PORTABLE COMMENT: The patient is status post joint replacement which is articulating normally. at 1127 Reported and signed by: Igor Vallejo MD CC: Beverly Escobar MD Technologist: ARMANDO PORRAS. RT(R) Transcribed D/ (7993) t.SDR.JCL [facility] NAME: AGUEDA COOK [address] [facility] PHYS: YANN.Jesus Manuel - Beverly Escobar : 1955 AGE: 63 SEX: M [place] [address] LOC: Y.319 A PHONE #: [phone] EXAM DATE: 07/28/2019 STATUS: ADM IN FAX #: [phone] RAD #: D/C DT PAGE 1 Signed Report Patient Name: AGUEDA COOK Unit No: [id number] EXAMS: CPT CODE: [id number] XR KNEE 1 OR 2 V LT [address] <Continued> Orig Print D/T: S: 07/29/2019 (5476) [facility] NAME: AGUEDA COOK [address] [facility] PHYS: ALMA DELIAANCELMO - Beverly Escobar : 1955 AGE: 63 SEX: M [place] [address] LOC: Y.319 A PHONE #: [phone] EXAM DATE: 07/28/2019 STATUS: ADM IN FAX #: [phone] RAD #: D/C DT PAGE 2 Signed ReportGLUBED 2019-07-29 08:39:00 Test Item Value Reference Range Interpretation Comments GLUBED (test code = GLUBED) 248 mg/dL 60-125 H BASIC METABOLIC [id number] 06:33:00 Test Item Value Reference Range Interpretation [...] RATE (test code = GFR) mL/mi n/1.73 j1Ddlparmsh Range:Healthy Adults >90 mL/min/1.73 m2 For Chronic Kidney Disease: St age II Mild Decrease in GFR 60-90 St age III Moderate Decrease in GFR 30-59 Stage IV Severe Decre ase in GFR 15- 29 Stage V Kidney Failure <15 CREATININE (test code 1.23 mg/dL 0.55-1.30 N = CREAT) CALCIUM (test code = 7.6 mg/dL 8.2-10.1 L CA) HGB [id number] 05:49:00 Test Item Value Reference Range Interpretation Comments HEMOGLOBIN (test code = HGB) 11.8 g/dL 12-16 L HEMATOCRIT (test code = HCT) 35.8 % 37-47 L [id number] 05:26:00 Test Item Value Reference Range Interpretation Comments GLUBED (test code = GLUBED) 200 mg/dL 60-125 H [id number] 20:07:00 Test Item Value Reference Range Interpretation Comments GLUBED (test code = GLUBED) 259 mg/dL 60-125 H [id number] 07:39:00 Test Item Value Reference Range Interpretation [...] be considered for these patients.DONE A T: [facility] [address] [place] [address] PROTHROMBIN [id number] 20:30:00 Test Item Value Reference Range Interpretation [...] Patient is on Heparin Drip? NOTHROMBOPLASTIN TIME [id number] 20:30:00 Test Item Value Reference Range Interpretation Comments PTT ACTIVATED (test code = APTT) 32.9 secs 24.9-37.0 N SPECIMEN COMMENT: PATIENT ALSO ON PLAVIXIS PATIENT ON ANTICOAGULANTS ? YLIST ANTICOAGULANT/ANTI PLT MEDICATION : AspirinHas Lab been notified if Patient is on Heparin Drip? NOCOMPREHENSIVE METABOLIC [id number] 20:25:00 Test Item Value Reference Range Interpretation [...] RATE (test code = GFR) mL/mi n/1.73 h8Pswtiqrmk Range:Healthy Adults >90 mL/min/1.73 m2 For Chronic [...] TOTAL (test code = ALKP) CBC W/AUTO [id number] 17:54:00 Test Item Value Reference Range Interpretation [...] - XR KNEE 1 OR 2 V [id number] 12:44:00 Patient Name: AGUEDA COOK Unit No: [id number] EXAMS: CPT CODE: [id number] XR KNEE 1 OR 2 [place] [address] RIGHT KNEE 2 VIEWS PORTABLE COMMENT: The patient is status post joint replacement which is articulating normally. at 1244 Reported and signed by: Igor Vallejo MD CC: Beverly Escobar MD Technologist: DAVION PEREZ (RT.R) Transcribed D/ (1244) tCELINEJCL [facility] NAME: AGUEDA COOK [address] [facility] PHYS: Beverly Vyas : 1955 AGE: 63 SEX: M [place], [place] [address] LOC: Y.520 A PHONE #: [phone] EXAM DATE: 01/28/2019 STATUS: DIS IN FAX #: [phone] #: D/C DT 01/29/2019 PAGE 1 Signed Report Patient Name: AGUEDA COOK Unit No: [id number] EXAMS: CPT CODE: [id number] XR KNEE 1 OR 2 V RT [address]36 <Continued> Orig Print D/T: S: 01/31/2019 (1247) [facility] NAME: AGUEDA COOK [address] [facility] [address] PHYS: YANN.Beverly Montiel : 1955 AGE: 63 SEX: M [place], [place] [address] LOC: Y.520 A PHONE #: [phone] EXAM DATE: 01/28/2019 STATUS: DIS IN FAX #: [phone] RAD #: D/C DT 01/29/2019 PAGE 2 Signed ReportBASIC METABOLIC [id number] 07:38:00 Test Item Value Reference Range Interpretation [...] RATE (test code = GFR) mL/mi n/1.73 e7Mjowqpegn Range:Healthy Adults >90 mL/min/1.73 m2 For Chronic Kidney Disease: St age II Mild Decrease in GFR 60-90 St age III Moderate Decrease in GFR 30-59 Stage IV Severe Decre ase in GFR 15- 29 Stage V Kidney Failure <15 CREATININE (test code 1.35 mg/dL 0.55-1.30 H = CREAT) CALCIUM (test code = 7.8 mg/dL 8.2-10.1 L CA) HGB [id number] 06:32:00 Test Item Value Reference Range Interpretation Comments HEMOGLOBIN (test code = HGB) 12.2 g/dL 12-16 N HEMATOCRIT (test code = HCT) 37.1 % 37-47 N [id number] 05:24:00 Test Item Value Reference Range Interpretation Comments GLUBED (test code = GLUBED) 149 mg/dL 60-125 H [id number] 20:47:00 Test Item Value Reference Range Interpretation Comments GLUBED (test code = GLUBED) 161 mg/dL 60-125 H [id number] 12:02:00 Test Item Value Reference Range Interpretation [...] the method used. H GBA1c results from pa terriswith HbSS, HbCC, and HbSc must be interpreted with cautiongiven th e pathological pr ocesses, including anemi a,increased red cell turnov er, transfusion req uirements, thatadversely i mpact HGBA1c as a marker of long-term glycemiccontrol . Alternative for ms of testing such as fructosaminesho uld be considered for these patients.DONE A T: [facility] [address] [place] [address] GLYCOSYLATED HEMOGLOBIN (HA1C)2019-01-17 13:49:00 Test Item Value [...] be considered for these patients. COMPREHENSIVE METABOLIC [id number] 12:39:00 Test Item Value Reference Range Interpretation [...] RATE (test code = GFR) mL/mi n/1.73 g6Udryaftee Range:Healthy Adults >90 mL/min/1.73 m2 For Chronic [...] N TOTAL (test code = ALKP) PROTHROMBIN [id number] 12:33:00 Test Item Value Reference Range Interpretation [...] BLOOD, PT every other day NTHROMBOPLASTIN TIME [id number] 12:33:00 Test Item Value Reference Range Interpretation Comments PTT ACTIVATED (test code = APTT) 28.4 secs 24.9-37.0 N IS PATIENT ON ANTICOAGULANTS ? YLIST ANTICOAGULANT/ANTI PLT MEDICATION : Plavix (Anti-PLT)Has Lab been notified if Patient is on Heparin Drip? NOIf Yes, order CBC, OCCULT BLOOD, PT every other day NCBC W/AUTO [id number] 12:29:00 Test Item Value Reference Range Interpretation [...] % 0-0 N code = NRBC) URINALYSIS [id number] 12:27:00 Test Item Value Reference Range Interpretation [...] BACU) FEW /HPF NONE - XR FLUORO [id number] 10:43:00 Patient Name: AGUEDA COOK Unit No: [id number] EXAMS: CPT CODE: [id number] XR FLUORO NDL 24609 FLUOROSCOPICALLY GUIDED right prosthetic knee joint ASPIRATION [...] Pb Clemente MD CC: Ricardo Leonard Technologist: Vera Wilks RT.(R) Transcribed D/ (9324) tCELINEGVG [facility] NAME: AGUEDA COOK[address] [facility] PHYS: Ricardo Patel : 1955 AGE: 62 SEX: M [place] [address] LOC: [employer] PHONE #: [phone] EXAM DATE: 01/08/2018 STATUS: DEP [place] #: [phone] RAD #: D/C DT PAGE 1 Signed Report Patient Name: AGUEDA COOK Unit No: [id number] EXAMS: CPT CODE: [id number] XR FLUORO NDL 04919 <Continued> Orig Print D/T: S: 01/11/2018 (7054) [facility] NAME: AGUEDA COOK [address] [facility] PHYS: Ricardo Patel Faby : 1955 AGE: 62 SEX: M [place] [id number] LOC: [employer] PHONE #: [phone] EXAM DATE: 01/08/2018 STATUS: [facility]OR CLI FAX #: [phone] RAD #: D/C DT PAGE 2 Signed Report
--- OUTSIDE RECORDS SUMMARY | 2020-08-11 18:58 | XMS REPORT | Summary of Care ---
:1955 Author Organization [facility] Address [address] [place] [address] Care Team Providers Name Role Phone Vinay Dowling Primary Care Provider Reason for Visit Reason Comments Exposure Encounter Details Date Type Department Care Team Description 06/22/2020 Laboratory Only [facility] Family Jd Dennis PA-C [address] [place] [address] Exposure to Medicine - [facility], Adc Fam Pob I SARS-associated [address] [facility] coronaviru s ([address] Dx) [place] [address] Allergies Active Allergy Reactions Severity Noted Date Comments Phenazopyridine Anaphylaxis High 09/07/2017 Iodine Anaphylaxis, Hives, Rash High 01/21/2016 IV Iodine Penicillins Anaphylaxis High 01/21/2016 documented as of this encounter (statuses as of 06/22/2020) Medications No known medicationsdocumented as of this encounter (statuses as of 06/22/2020) Active Problems Problem Noted Date Acute pain of right knee 09/10/2017 Morbid obesity with body mass index of 40.0-49.9 01/14 Morbid obesity with body mass index of 50 or higher Pain 01/14/2017 documented as of this encounter (statuses as of 06/22/2020) Immunizations Name Administration Dates Next Due Influenza Virus Vaccine Quad IM 3+ YRS 09/10/2017 Pneumococcal Polysaccharide, PPSV23 (PNEUMOVAX) 09/10/2017 documented as of this encounter Social History Tobacco Use Types Packs/Day Years Used Date Never Smoker Smokeless Tobacco: Current User Chew Alcohol Use Drinks/Week oz/Week Comments Yes 0 Standard drinks or equivalent 0.0 Occasional Drinker Sex Assigned at Date Recorded Not on file documented as of this encounter Last Filed Vital Signs Vital Sign Reading Time Taken Comments Blood Pressure - - Pulse 85 06/22/2020 3:00 PM SAND CUTTER Temperature - - Respiratory Rate 20 06/22/2020 3:00 PM SAND CUTTER Oxygen Saturation 98% 06/22/2020 3:00 PM SAND CUTTER Inhaled Oxygen Concentration - - Weight - - Height - - Body Mass Index - - documented in this encounter Nursing Notes Angely Hanna LVN - 06/22/2020 7:20 PM CSTRaelizabeth Forman is a 64 year old male here for a Rule Out Covid-19 Nasopharyngeal Swab. Patient educated on plan of care for visit, swabbing technique, risks and benefits of test and length of time to receive results. Verbal consent obtained to perform test. CDC Fact Sheet for Patients provided to patient. All droplet and contact precautions taken with appropriate PPE worn while interacting with patient. - Goggles - N95 Mask - Gloves - Gown RR=20 % O2 Sat=98 Patient swabbed using appropriate nasopharyngeal technique, and patient tolerated well. Patient was discharged in stable condition. ANGELY HANNA LVN 06/22/2020 6:17 PM CUTTER documented in this encounter Plan of Treatment Name Type Priority Associated Diagnoses Order S chedule COVID-19 (MOLECULAR LAB Routine Exposure to Expected : 06/22/2020, TESTING SARS-associated Expires: 021 NUCLEIC ACID coronavirus AMPLIFICATION) Health Maintenance Due Date Last Done Comments HEPATITIS C (HCV) SCREEN 1955 Depression Screening 1967 DTaP,Tdap,and Td Vaccines (1 - 11/30/1974 Tdap) COLON CANCER SCREENING ANNUAL 11/30/2005 FIT/FOBT COLON CANCER SCREENING FIT DNA 11/30/2005 EVERY 3 YEARS COLON CANCER SCREENING 11/30/2005 SIGMOIDOSCOPY EVERY 5 YEARS COLONOSCOPY 11/30/2005 Colorectal Cancer Screening 11/30/2005 Zoster Recombinant Vaccine 11/30/2005 (SHINGRIX) (1 of 2) INFLUENZA VACCINE (#1) 2020 09/10/2017 PNEUMOCOCCAL 0-64 YEARS COMBINED Aged Out 09/10/2017 No longer eligible based on SERIES patient's age to complete this topic documented as of this encounter Implants Implanted Type Area Airplane Cabin Attendant Device Shelf Model / Identifier Expiration Serial / Lot Date Cement CEMENT Left: [place] 05/09/2018 6195-1-00 1 / Implanted: Qty: 2 on 01/14/[address] Gold MD at [facility] Knee 6 [id number] / [id number] Cement CEMENT Right: [place] 09/09/2018 6195-1-00 1 / Implanted: Qty: 2 on 05/13/[address] Gold MD at [facility] Knee 7 [id number] / [id number] Ps Open Box Femoral Left KNEE Left: Biomet 04/2026 [id number] / Implanted: Qty: 1 on 01/14/[address] Gold MD at [facility] Knee J [id number] / [id number] Ps Tibial Bearing KNEE Left: Biomet 10/22/2021 1 [id number] / Implanted: Qty: 1 on 01/14/[address] Gold MD at [facility] Knee 4 [id number] / [id number] Ps Open Box Femoral Right KNEE Right: Biomet 10/09 [id number] / Implanted: Qty: 1 on 05/13/[address] Gold MD at [facility] Knee J [id number] / [id number] Ps Tibial Bearing KNEE Right: Biomet 02/25/2022 1 [id number] / Implanted: Qty: 1 on 05/13/[address] Gold MD at [facility] Knee 3 [id number] / [id number] Ps Tibial Bearing KNEE Right: Biomet 05/10/2022 1 [id number] / Implanted: Qty: 1 on 09/09/[address] Gold MD at [facility] Knee 3 [id number] / [id number] Modular Tibial Locking Bar KNEE Right: Biomet 01/2027 [id number] / Implanted: Qty: 1 on 09/09/[address] Gold MD at [facility] Knee 2 [id number] / [id number] Lens LENS Left: Eye [place] 11/07/2020 [id number] / Implanted: Qty: 1 on 01/23/2016 by Rodri Knight MD at [facility] 1 [id number] / [id number] 73 Series A Standard Patellla PATELLA Left: Biomet 09/2021 [id number] / Implanted: Qty: 1 on 01/14/[address] Gold MD at [facility] Knee 2 [id number] / [id number] Patella PATELLA Right: Biomet 12/29/2021 [id number] / Implanted: Qty: 1 on 05/13/[address] Gold MD at [facility] Knee 3 [id number] / [id number] Cruciate Tibial Plate PLATE Left: Biomet 08/20/19 [id number] / Implanted: Qty: 1 on 01/14/[address] Gold MD at [facility] Knee J [id number] / [id number] Fixed Cruciate Tibial Plate PLATE Right: Biomet [id number] / Implanted: Qty: 1 on 05/13/[address] Gold MD at [facility] Knee J [id number] / [id number] documented as of this encounter Results Not on filedocumented in this encounter Visit Diagnoses Diagnosis Exposure to SARS-associated coronavirus - Primary documented in this encounter Additional Health Concerns Infection Onset Date Last Indicated Resolved Time COVID-19 Rule Out 06/22/2020 06/22/2020 documented as of this encounter Insurance Payer Benefit Plan Subscriber ID Effective Dates Phone Address Type / Group [facility] [id number] 2014-[place] [phone] [address] PPO/POS [place] t [id number] [place] [address] documented as of this encounter
--- OUTSIDE RECORDS SUMMARY | 2020-08-11 18:58 | XMS REPORT | Summary of Care ---
:1955 Author Organization [facility] Address [address] [place] [address] Care Team Providers Name Role Phone Vinay Dowling Primary Care Provider Reason for Visit Reason Comments LAB Exposure Encounter Details Date Type Department Care Team Description 07/09/[address] 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 [address] [place] [address] Exposure to Medicine - [facility], Adc Fam Pob I SARS-associated 136 [facility] coronaviru s ([address] Dx) [place] [address] Allergies Active Allergy Reactions Severity Noted Date Comments Phenazopyridine Anaphylaxis High 09/07/2017 Iodine Anaphylaxis, Hives, Rash High 01/21/2016 IV Iodine Penicillins Anaphylaxis High 01/21/2016 documented as of this encounter (statuses as of 07/09/2020) Medications No known medicationsdocumented as of this encounter (statuses as of 07/09/2020) Active Problems Problem Noted Date Acute pain of right knee 09/10/2017 Morbid obesity with body mass index of 40.0-49.9 01/14 Morbid obesity with body mass index of 50 or higher Pain 01/14/2017 documented as of this encounter (statuses as of 07/09/2020) Immunizations Name Administration Dates Next Due Influenza Virus Vaccine Quad IM 3+ YRS 09/10/2017 Pneumococcal Polysaccharide, PPSV23 (PNEUMOVAX) 09/10/2017 documented as of this encounter Social History Tobacco Use Types Packs/Day Years Used Date Never Smoker Smokeless Tobacco: Current User Chew Alcohol Use Drinks/Week oz/Week Comments Yes 0 Standard drinks or equivalent 0.0 Occasional Drinker Sex Assigned at Date Recorded Not on file COVID-19 Exposure Response Date Recorded In the last month, have you been in contact with No / Unsure 07/09/2020 3:[address] JUSTICE someone who was confirmed or suspected to have Coronavirus / COVID-19? documented as of this encounter Last Filed Vital Signs Not on filedocumented in this encounter Nursing Notes Luann Ortiz MA - 07/09/2020 3:00 PM CSTRaymjessica Forman is a 64 year old male here for COVID Screening with a Nasopharyngeal Swab All droplet and contact precautions taken with appropriate PPE worn while interacting with patient. ? Goggles ? N95 Mask ? Gloves ? Gown RR 15 Pulse 85 Ox 99% Patient educated on plan of care for visit, swabbing technique, risks and benefits of test and length of time to receive results. Verbal consent obtained to perform test. CDC Fact Sheet for Patients nCoV Diagnostic Panel dated 10/23/2019 and Factsheet What to Do if Sick with COVID 19 10/03/19 provided. Bilate nares swabbed during COVID19 nasopharyngeal swab. Patient swabbed per appropriate nasopharyngeal technique, and patient tolerated well. Patient was discharged from the testing clinic in stable condition. LUANN ORTIZ MA 07/09/2020 2:[address] JUSTICE documented in this encounter Plan of Treatment Name Type Priority Associated Diagnoses Order S chedule COVID-19 (MOLECULAR LAB Routine Exposure to Expected : 07/09/2020, TESTING SARS-associated Expires: 021 NUCLEIC ACID coronavirus [...] of this encounter Implants Implanted Type Area Cray Fishing Hand Device Shelf Model / Identifier Expiration Serial / Lot Date Cement CEMENT Left: [place]elyn 05/09/2018 6195-1-00 1 / Implanted: Qty: 2 on 01/14/[address] Gold MD at [facility] Knee 6 [id number] / [id number] Cement CEMENT Right: [place] 09/09/2018 6195-1-00 1 / Implanted: Qty: 2 on 05/13/[address] Gold MD at [facility] Knee 7 [id number] / [id number] Ps Open Box Femoral Left KNEE Left: Biomet 04/2026 [id number] / Implanted: Qty: 1 on 01/14/[address] Gold MD at [facility] Knee J [id number] / [id number] Ps Tibial Bearing KNEE Left: Biomet 10/22/2021 1 [id number] / Implanted: Qty: 1 on 01/14/[address] Gold MD at [facility] Knee 4 [id number] / [id number] Ps Open Box Femoral Right KNEE Right: Biomet 10/09 [id number] / Implanted: Qty: 1 on 05/13/[address] Gold MD at [facility] Knee J [id number] / [id number] Ps Tibial Bearing KNEE Right: Biomet 02/25/2022 1 [id number] / Implanted: Qty: 1 on 05/13/[address] Gold MD at [facility] Knee 3 [id number] / [id number] Ps Tibial Bearing KNEE Right: Biomet 05/10/2022 1 [id number] / Implanted: Qty: 1 on 09/09/[address] Gold MD at [facility] Knee 3 [id number] / [id number] Modular Tibial Locking Bar KNEE Right: Biomet 01/2027 [id number] / Implanted: Qty: 1 on 09/09/[address] Gold MD at [facility] Knee 2 [id number] / [id number] Lens LENS Left: Eye [place] 11/07/2020 [id number] / Implanted: Qty: 1 on 01/23/2016 by Rodri Knight MD at [facility] 1 [id number] / [id number] 0 73 Series A Standard Patellla PATELLA Left: Biomet 09/2021 [id number] / Implanted: Qty: 1 on 01/14/[address] Gold MD at [facility] Knee 2 [id number] / [id number] Patella PATELLA Right: Biomet 12/29/2021 [id number] / Implanted: Qty: 1 on 05/13/[address] Gold MD at [facility] Knee 3 [id number] / [id number] Cruciate Tibial Plate PLATE Left: Biomet 08/20/19 27 [id number] / Implanted: Qty: 1 on 01/14/[address] Gold MD at [facility] Knee J [id number] / [id number] Fixed Cruciate Tibial Plate PLATE Right: Biomet [id number] / Implanted: Qty: 1 on 05/13/[address] Gold MD at [facility] Knee J [id number] / [id number] documented as of this encounter Results Not on filedocumented in this encounter Visit Diagnoses Diagnosis Exposure to SARS-associated coronavirus - Primary documented in this encounter Additional Health Concerns Infection Onset Date Last Indicated Resolved Time COVID-19 Rule Out 07/09/2020 07/09/2020 documented as of this encounter Insurance Payer Benefit Plan Subscriber ID Effective Dates Phone Address Type / Group [facility] [id number] 2014-[place] [phone] [address] PPO/POS [place] t [id number] [place] [address] documented as of this encounter
--- OUTSIDE RECORDS SUMMARY | 2020-08-11 18:58 | XMS REPORT | Summary of Care ---
:1955 Author Organization [facility] Address [address] [place] [address] Care Team Providers Name Role Phone Vinay Dowling Primary Care Provider Reason for Visit Reason Comments Exposure covid Encounter Details Date Type Department Care Team Description 05/17/2020 Laboratory Only [facility] Family Montana Sánchez, MANAGER CARE MANAGEMENT [address] [place] [address] Exposure to Medicine - [facility], Adc Fam Pob I SARS-associated 136 [facility] coronaviru s ([address] Dx) [place] [address] Allergies Active Allergy Reactions Severity Noted Date Comments Phenazopyridine Anaphylaxis High 09/07/2017 Iodine Anaphylaxis, Hives, Rash High 01/21/2016 IV Iodine Penicillins Anaphylaxis High 01/21/2016 documented as of this encounter (statuses as of 05/17/2020) Medications No known medicationsdocumented as of this encounter (statuses as of 05/17/2020) Active Problems Problem Noted Date Acute pain of right knee 09/10/2017 Morbid obesity with body mass index of 40.0-49.9 01/14 Morbid obesity with body mass index of 50 or higher Pain 01/14/2017 documented as of this encounter (statuses as of 05/17/2020) Immunizations Name Administration Dates Next Due Influenza [...] on filedocumented in this encounter Nursing Notes Jesenia Reyez RN - 05/17/2020 3:00 PM CDTRaelizabeth Forman is a 64 year old male [...] - N95 Mask - Gloves - Gown RR=18 % O2 Sat=97 Patient swabbed using appropriate nasopharyngeal technique, and patient tolerated well. Patient was discharged in stable condition. JESENIA REYEZ RN 05/17/2020 2:56 PM documented in this encounter Plan of Treatment Name Type Priority Associated Diagnoses Order S chedule COVID-19 (PCR MOLECULAR LAB Routine Exposure to Expe cted: 05/17/2020, TESTING) SARS-associated Expires: 03/2021 coronavirus Health Maintenance Due Date Last Done Comments HEPATITIS C (HCV) SCREEN 1955 Depression Screening 1967 DTaP,Tdap,and Td Vaccines ( - 11/30/1974 Tdap) COLON CANCER SCREENING ANNUAL [...] of this encounter Implants Implanted Type Area Associate Merchandise Planner Device Shelf Model / Identifier Expiration Serial / Lot Date Cement CEMENT Left: [place] 05/09/2018 6195-1-00 1 / Implanted: Qty: 2 on 01/14/[address] Gold MD at [facility] Knee 6 [id number] / [id number] Cement CEMENT Right: Madelyn 09/09/2018 6195-1-00 1 / Implanted: Qty: 2 on 05/13/[address] Gold MD at [facility] Knee 7 [id number] / [id number] Ps Open Box Femoral Left KNEE Left: Biomet 0 04/2026 [id number] / Implanted: Qty: 1 on 01/14/[address] Gold MD at [facility] Knee J [id number] / [id number] Ps Tibial Bearing KNEE Left: Biomet 10/22/2021 1 [id number] / Implanted: Qty: 1 on 01/14/[address] Gold MD at [facility] Knee 4 [id number] / [id number] Ps Open Box Femoral Right KNEE Right: Biomet 10/09 [id number] / Implanted: Qty: 1 on 05/13/[address] Gold MD at [facility] Knee J [id number] / [id number] Ps Tibial Bearing KNEE Right: Biomet 02/25/2022 1 [id number] / Implanted: Qty: 1 on 05/13/[address] Gold MD at [facility] Knee 3 [id number] / [id number] Ps Tibial Bearing KNEE Right: Biomet 05/10/2022 1 31577 / Implanted: Qty: 1 on 09/09/[address] Gold MD at [facility] Knee 3 [id number] / [id number] Modular Tibial Locking Bar KNEE Right: Biomet 01/2027 [id number] / Implanted: Qty: 1 on 09/09/[address] Gold MD at [facility] Knee 2 [id number] / [id number] Lens LENS Left: Eye [place] 11/07/2020 [id number] / Implanted: Qty: 1 on 01/23/2016 by Rodri Knight MD at [facility] 1 [id number] / [id number] 0 73 Series A Standard Patellla PATELLA Left: Biomet 09/2021 [id number] / Implanted: Qty: 1 on 01/14/[address] Gl[address] MD at [facility] Knee 2 [id number] / [id number] Patella PATELLA Right: Biomet 12/29/2021 [id number] / Implanted: Qty: 1 on 05/13/[address] Gold MD at [facility] Knee 3 [id number] / [id number] Cruciate Tibial Plate PLATE Left: Biomet 08/20/19 27 [id number] / Implanted: Qty: 1 on 01/14/[address] Gold MD at [facility] Knee J [id number] / [id number] Fixed Cruciate Tibial Plate PLATE Right: Biomet [id number] / Implanted: Qty: 1 on 05/13/[address] Gold MD at [facility] Knee J [id number] / [id number] documented as of this encounter Results Not on filedocumented in this encounter Visit Diagnoses Diagnosis Exposure to SARS-associated coronavirus - Primary documented in this encounter Additional Health Concerns Infection Onset Date Last Indicated Resolved Time COVID-19 Rule Out 05/17/2020 05/17/2020 documented as of this encounter Insurance Payer Benefit Plan Subscriber ID Effective Dates Phone Address Type / Group [facility] [id number] 2014-[place] [phone] [address] PPO/POS [place] t [id number] [place] [address] documented as of this encounter
--- OUTSIDE RECORDS SUMMARY | 2020-08-11 18:58 | XMS REPORT | Summary of Care ---
:1955 Author Organization [facility] Address [address] [place] [address] Care Team Providers Name Role Phone Vinay Dowling Primary Care Provider Reason for Visit Reason Comments Exposure Encounter Details Date Type Department Care Team Description 05/31/2020 Laboratory Only [facility] Family SammyEmily mcdonald PA [address] [place] [address] [facility] [place] [address] Exposure to Medicine - [facility], Adc Fam Pob I SARS-associated [address] [place] [address] coronaviru s ([address] Dx) [place] [address] Allergies Active Allergy Reactions Severity Noted Date Comments Phenazopyridine Anaphylaxis High 09/07/2017 Iodine Anaphylaxis, Hives, Rash High 01/21/2016 IV Iodine Penicillins Anaphylaxis High 01/21/2016 documented as of this encounter (statuses as of 05/31/2020) Medications No known medicationsdocumented as of this encounter (statuses as of 05/31/2020) Active Problems Problem Noted Date Acute pain of right knee 09/10/2017 Morbid obesity with body mass index of 40.0-49.9 01/14 Morbid obesity with body mass index of 50 or higher Pain 01/14/2017 documented as of this encounter (statuses as of 05/31/2020) Immunizations Name Administration Dates Next Due Influenza [...] on filedocumented in this encounter Nursing Notes Flora Littlejohn MA - 05/31/2020 3:40 PM CDTRaelizabeth Forman is a 64 year old male here for COVID Screening with a Nasopharyngeal Swab All droplet and contact precautions taken with appropriate PPE worn while interacting with patient. ? Goggles ? N95 Mask ? Gloves ? Gown RR 18 Pulse Ox 97% Patient educated on plan of care for visit, swabbing technique, risks and benefits of test and length of time to receive results. Verbal consent obtained to perform test. CDC Fact Sheet for Patients nCoV Diagnostic Panel dated 10/23/2019 and Factsheet What to Do if Sick with COVID 19 10/03/19 provided. Patient swabbed per appropriate nasopharyngeal technique, and patient tolerated well. Patient was discharged from the testing clinic in stable condition. Flora Littlejohn MA 05/31/2020 3:34 PM documented in this encounter Plan of Treatment Name Type Priority Associated Diagnoses Order S juliendulux COVID-19 (PCR MOLECULAR LAB Routine Exposure to Expe cted: 05/31/2020, TESTING) SARS-associated Expires: coronavirus Health Maintenance Due Date Last Done [...] of this encounter Implants Implanted Type Area Veterinarian Helper Device Shelf Model / Identifier Expiration Serial / Lot Date Cement CEMENT Left: Madelyn 05/09/2018 6195-1-00 1 / Implanted: Qty: 2 on 01/14/[address] Gold MD at [facility] Knee 6 [id number] / [id number] Cement CEMENT Right: [place] 09/09/2018 6195-1-00 1 / Implanted: Qty: 2 on 05/13/[address] Gold MD at [facility] Knee 7 [id number] / [id number] Ps Open Box Femoral Left KNEE Left: Biomet 04/2026 [id number] / Implanted: Qty: 1 on 01/14/[address] Gold MD at [facility] Knee J [id number] / [id number] Ps Tibial Bearing KNEE Left: Biomet 10/22/2021 1 10506 / Implanted: Qty: 1 on 01/14/[address] Gold MD at [facility] Knee 4 [id number] / [id number] Ps Open Box Femoral Right KNEE Right: Biomet 10/09 [id number] / Implanted: Qty: 1 on 05/13/[address] Gold MD at [facility] Knee J [id number] / [id number] Ps Tibial Bearing KNEE Right: Biomet 02/25/2022 1 25257 / Implanted: Qty: 1 on 05/13/[address] Gold MD at [facility] Knee 3 [id number] / [id number] Ps Tibial Bearing KNEE Right: Biomet 05/10/2022 1 47659 / Implanted: Qty: 1 on 09/09/[address] Gold MD at [facility] Knee 3 [id number] / [id number] Modular Tibial Locking Bar KNEE Right: Biomet 01/2027 [id number] / Implanted: Qty: 1 on 09/09/[address] Gold MD at [facility] Knee 2 [id number] / [id number] Lens LENS Left: Eye [place] 11/07/2020 [id number] / Implanted: Qty: 1 on 01/23/2016 by Rodri Knight MD at [facility] 1 [id number] / [id number] 0 73 Series A Standard Patellla PATELLA Left: Biomet 09/2021 [id number] / Implanted: Qty: 1 on 01/14/[address] Gold MD at [facility] Knee 2 [id number] / [id number] Patella PATELLA Right: Biomet 12/29/2021 [id number] / Implanted: Qty: 1 on 05/13/[address] Gold MD at [facility] Knee 3 [id number] / [id number] Cruciate Tibial Plate PLATE Left: Biomet 08/20/19 27 [id number] / Implanted: Qty: 1 on 01/14/[address] Gold MD at [facility] Knee J [id number] / [id number] Fixed Cruciate Tibial Plate PLATE Right: Biomet 154198 / Implanted: Qty: 1 on 05/13/[address] Gold MD at [facility] Knee J [id number] / [id number] documented as of this encounter Results Not on filedocumented in this encounter Visit Diagnoses Diagnosis Exposure to SARS-associated coronavirus - Primary documented in this encounter Additional Health Concerns Infection Onset Date Last Indicated Resolved Time COVID-19 Rule Out 05/31/2020 05/31/2020 documented as of this encounter Insurance Payer Benefit Plan Subscriber ID Effective Dates Phone Address Type / Group [facility] [id number] 2014-[place] [phone] [address] PPO/POS [place] t [id number] [place] [address] documented as of this encounter
[2020-08-11 19:17] LABS: Absolute Lymphocytes (CBC) 1.7 K/uL (0.7-4.9); Basophils % 0.6 % (0-1.3); Hematocrit 47.9 % (39.6-49.0); Lymphocytes % 15.4 % (15.3-44.8); MPV 7.4 fL (7.6-11.3); RBC Red Blood Cell Count 5.34 M/uL (4.33-5.43)
[2020-08-11] MEDS ORDERED: NITROGLYCERIN 0.4 MG/TAB SL ONE (19:21)
[2020-08-11] MEDS ORDERED: ASPIRIN 81 MG CHEWABLE TABLET ONE (19:22)
[2020-08-11 19:27] LABS: Protime INR 1.08
[2020-08-11 19:38] LABS: ALT/SGPT 46 U/L (12-78); AST/SGOT 31 U/L (15-37); Albumin 3.6 g/dL (3.4-5.0); Alkaline Phosphatase 95 U/L (45-117); BUN Blood Urea Nitrogen 15 mg/dL (7-18); Bicarbonate 30 mmol/L (21-32); Bilirubin Direct 0.2 mg/dL (0-0.2); Bilirubin Total 0.7 mg/dL (0.2-1.0); Glucose Level 240 mg/dL (74-106); NT PRO-BNP 114 pg/mL (<125); Potassium 3.7 mmol/L (3.5-5.1); Protein, Total 8.2 g/dL (6.4-8.2); Sodium Level 139 mmol/L (136-145); Troponin (Emerg Dept Use Only) < 0.02 ng/mL (0.0-0.045)
--- NOTE | 2020-08-11 19:51 | RAD REPORT ---
EXAM DESCRIPTION: Marilu Single View08/11/2020 7:45 pm CLINICAL HISTORY: Chest pain COMPARISON: February 2020 FINDINGS: The lungs appear clear of acute infiltrate. The heart is mildly enlarged. Postsurgical changes involve the chest. IMPRESSION: No acute abnormalities displayed
[2020-08-11] MEDS ORDERED: FENTANYL CITR 100 MCG/2 ML ONE (20:09)
--- NOTE | 2020-08-11 20:13 | EDPHYS ---
Physician Documentation [facility] Name: Kumar Forman Age: 64 yrs Sex: Male : 1955 Arrival Date: 08/11/2020 Time: 18:53 Bed 15 Private MD: JAMILA Physician Tucker Kumar HPI: 08/11 19:06 This 64 yrs old Male presents to ER via Wheelchair with complaints of Chest pm1 Pain. 19:06 The patient or guardian reports chest pain that is located primarily in the left pm1 breast. Onset: 30-45 minutes prior to arrival. The pain does not radiate. Associated signs and symptoms: Pertinent negatives: abdominal pain, cough, dizziness, headache, nausea, shortness of breath, vomiting. The chest pain is described as sharp. Duration: The patient or guardian reports a single episode, that is still ongoing. Modifying factors: The symptoms are alleviated by nothing. the symptoms are aggravated by nothing. Severity of pain: in the emergency department the pain is unchanged. The patient has experienced similar episodes in the past, several times. The patient has not recently seen a physician, the patient's primary care provider is Dr. Dowling. Swahili Teacher: Steven. 19:06 Stent x 3 2003, Stent x 1 2004, double bypass 12/2019. Last seen by Steven July for check up. Historical: - Allergies: 19:00 AZO Standard; jb4 19:00 Iodine; jb4 19:00 PENICILLINS; jb4 19:00 Demerol; jb4 - Home Meds: 19:00 aspirin 81 mg Oral TbEC 1 tab once daily [Active]; clopidogrel 75 mg Oral tab [Active]; jb4 finasteride 5 mg Oral tab [Active]; gabapentin 60mg Oral [Active]; glimepiride 4 mg Oral tab [Active]; losartan 50 mg Oral tab [Active]; metformin 1,000 mg Oral tab [Active]; metoprolol tartrate 37.5 mg oral tab 1 tab once daily [Active]; rabeprazole 20 mg Oral TbEC [Active]; trazodone 50 mg Oral tab [Active]; - PMHx: 19:00 BPH; Cataracts; Diabetes - NIDDM; GERD; Myocardial infarction; Ulcers; jb4 - PSHx: 19:00 Heart stents; jb4 - Immunization history:: Adult Immunizations up to date. - Social history:: Smoking status: Patient denies any tobacco usage or history of. Patient/guardian denies using alcohol, street drugs. ROS: 19:06 Constitutional: Negative for fever, chills, and weight loss. pm1 19:06 Respiratory: Negative for shortness of breath, cough, wheezing, and pleuritic chest pain, Abdomen/GI: Negative for abdominal pain, nausea, vomiting, diarrhea, and constipation, Back: Negative for injury and pain, MS/Extremity: Negative for injury and deformity, Skin: Negative for injury, rash, and discoloration, Neuro: Negative for headache, weakness, numbness, tingling, and seizure. 19:06 Cardiovascular: Positive for chest pain, Negative for edema, palpitations. Exam: 19:06 Constitutional: This is a well developed, well nourished patient who is awake, alert, pm1 and in no acute distress. Head/Face: Normocephalic, atraumatic. Chest/axilla: Normal chest wall appearance and motion. Nontender with no deformity. No lesions are appreciated. 19:06 Back: No spinal tenderness. No costovertebral tenderness. Full range of motion. Skin: Warm, dry with normal turgor. Normal color with no rashes, no lesions, and no evidence of cellulitis. MS/ Extremity: Pulses equal, no cyanosis. Neurovascular intact. Full, normal range of motion. 19:06 Cardiovascular: Rate: normal, Rhythm: regular, Pulses: no pulse deficits are appreciated, Edema: is not appreciated. 19:06 Respiratory: Exam negative for acute changes, respiratory distress, shortness of breath. 19:06 Abdomen/GI: Inspection: obese Palpation: abdomen is soft and non-tender, in all quadrants. 19:06 Neuro: Exam negative for acute changes, Orientation: is normal, Mentation: is normal, Motor: is normal, moves all fours. Vital Signs: 19:00 BP 180 / 100; Pulse 100; Resp 16; Temp 97.9(O); Pulse Ox 100% on R/A; Weight 136.08 kg jb4 (R); Height 5 ft. 7 in. (170.18 cm); Pain 10/10; 19:30 BP 110 / 67; Pulse 100; Resp 18; Pulse Ox 100% on R/A; vg1 20:00 BP 128 / 85; Pulse 96; vg1 20:10 BP 135 / 85; Pulse 95; Resp 20; Pulse Ox 100% on R/A; vg1 20:30 BP 148 / 89; Pulse 95; Resp 18; Pulse Ox 98% on R/A; vg1 21:00 BP 146 / 71; Pulse 92; Resp 18; Pulse Ox 98% on R/A; vg1 21:30 BP 141 / 75; Pulse 97; Resp 14; Pulse Ox 98% on R/A; vg1 22:00 BP 136 / 74; Pulse 98; Resp 18; Pulse Ox 97% on R/A; vg1 19:00 Body Mass Index 46.99 (136.08 kg, 170.18 cm) jb4 MDM: 18:59 Patient medically screened. pm1 20:10 Data reviewed: vital signs. Data interpreted: Pulse oximetry: on room air is 100 %. pm1 Interpretation: normal. 20:10 Counseling: I had a detailed discussion with the patient and/or guardian regarding: the pm1 historical points, exam findings, and any diagnostic results supporting the discharge/admit diagnosis, lab results, radiology results, the need for further work-up and treatment in the hospital. 20:40 ED course: Pain improved with fentanyl but reports pain returns with coughing. pm1 20:47 Physician consultation: Hospitalist Isma was contacted at 20:47, regarding pm1 admission, patient's condition, and will see patient. 08/11 19:00 Order name: Basic Metabolic Panel pm1 08/11 19:00 Order name: CBC with Diff pm1 08/11 19:00 Order name: LFT's; Complete Time: 19:39 pm1 08/11 19:00 Order name: Magnesium; Complete Time: 19:39 pm1 08/11 19:00 Order name: NT PRO-BNP; Complete Time: 19:39 pm1 08/11 19:00 Order name: PT-INR; Complete Time: 19:48 pm1 08/11 19:00 Order name: Troponin (emerg Dept Use Only); Complete Time: 19:39 pm1 08/11 19:00 Order name: Basic Metabolic Panel; Complete Time: 19:39 EDMS 08/11 19:00 Order name: CBC with Automated Diff; Complete Time: 19:39 EDMS 08/11 19:03 Order name: COVID-19 pm1 08/11 20:54 Order name: Urinalysis EDMS 08/11 20:54 Order name: Lipid Profile EDMS 08/11 20:54 Order name: Lipid Profile EDMS 08/11 20:54 Order name: Troponin I EDMS 08/11 20:54 Order name: Troponin I EDMS 08/11 20:54 Order name: Troponin I EDMS 08/11 20:54 Order name: Troponin I EDMS 08/11 22:48 Order name: Glucose, Ancillary Testing EDMS 08/11 23:00 Order name: Creatine Phosphokinase EDMS 08/11 23:00 Order name: CKMB Creatine Kinase MB EDMS 08/11 23:00 Order name: Troponin I EDMS 08/12 01:03 Order name: SARS-COV-2 RT PCR EDMS 08/12 02:59 Order name: Urine Dipstick--Ancillary (enter results) mw2 08/12 03:02 Order name: Urine Dipstick-Ancillary EDMS 08/12 05:54 Order name: Creatine Phosphokinase EDMS 08/12 05:54 Order name: CKMB Creatine Kinase MB EDMS 08/12 05:54 Order name: Troponin I EDMS 08/12 05:54 Order name: Lipid Profile EDMS 08/12 06:30 Order name: Urine Microscopic Only EDMS 08/12 07:33 Order name: Glucose, Ancillary Testing EDMS 08/11 19:00 Order name: XRAY Chest (1 view); Complete Time: 20:06 pm08/11 19:00 Order name: EKG; Complete Time: 19:01 pm08/11 19:00 Order name: Cardiac monitoring; Complete Time: 19:16 pm08/11 19:00 Order name: EKG - Nurse/Tech; Complete Time: 19:16 pm08/11 19:00 Order name: IV Saline Lock; Complete Time: 19:16 pm08/11 19:00 Order name: Labs collected and sent; Complete Time: 19:16 pm08/11 19:00 Order name: O2 Per Protocol; Complete Time: 19:16 pm08/11 19:00 Order name: O2 Sat Monitoring; Complete Time: 19:16 pm1 08/11 20:54 Order name: Patient Safety Orders EDMS 08/11 20:54 Order name: Heart Healthy EDVA 08/12 11:52 Order name: Glucose, Ancillary Testing EDMS Administered Medications: 19:11 Drug: Nitrostat 0.4 mg Route: Sublingual; jb4 19:11 Drug: Aspirin Chewable Tablet 324 mg Route: PO; jb4 19:25 Drug: Nitrostat 0.4 mg Route: Sublingual; jb4 20:00 Follow up: BP 128 / 85; Pulse 96 bpm; Response: No adverse reaction vg1 20:15 Drug: fentaNYL (PF) 50 mcg {Note: rass 1.} Route: IVP; Site: right antecubital; vg1 22:42 Follow up: Response: No adverse reaction vg1 20:40 Drug: Lovenox 1 mg/kg Route: Sub-Q; Site: right upper abdomen; vg1 21:40 Follow up: Response: No adverse reaction vg1 Disposition: 08/13 08:38 Co-signature as Attending Physician, Tucker Kumar MD I agree with the assessment and avinash plan of care. Disposition: 08/11/20 20:12 Hospitalization ordered by Mayank Duffy for Observation. Preliminary diagnosis is Chest pain, unspecified. - Bed requested for Telemetry/MedSurg (observation). - Status is Observation. em - Condition is Stable. - Problem is new. - Symptoms have improved. Signatures: Dispatcher [employer] [facility] Bonny Newman, RN Tucker Russell MD MD cha Munoz, Edgar, RN RN em Gloria Bustos, RN RN lp1 Robin Alvarado, FIRE CHIEF FIRE CHIEF pm1 Ton Centeno, RN LYRIC jb4 Laxmi Christopher, RN RN vg1 Corrections: (The following items were deleted from the chart) 08/11 20:16 20:12 Hospitalization Ordered by Mayank Duffy DO for Observation. Preliminary lp1 diagnosis is Chest pain, unspecified. Bed requested for Telemetry/MedSurg (observation). Status is Observation. Condition is Stable. Problem is new. Symptoms have improved. pm1 08/12 12:30 08/11 20:16 08/11/2020 20:12 Hospitalization Ordered by Mayank Duffy DO for dw Observation. Preliminary diagnosis is Chest pain, unspecified. Bed requested for [facility] ER HOLD. Status is Observation. Condition is Stable. Problem is new. Symptoms have improved. lp1 08/12 14:14 12:30 08/11/2020 20:12 Hospitalization Ordered by Mayank Duffy DO for Observation. em Preliminary diagnosis is Chest pain, unspecified. Bed requested for Telemetry/MedSurg (observation). Status is Observation. Condition is Stable. Problem is new. Symptoms have improved. dw
--- NOTE | 2020-08-11 20:13 | ER ---
Nurse's Notes [facility] Name: Kumar Forman Age: 64 yrs Sex: Male : 1955 Arrival Date: 08/11/2020 Time: 18:53 Bed 15 Private MD: Diagnosis: Chest pain, unspecified Presentation: 08/11 19:00 Chief complaint: Patient states: I am having chest pain beneath my left breast that jb4 started about 30 to 45 minutes ago. It radiates to my ribs. 19:00 Coronavirus screen: Client denies travel out of the [place] in the last 14 days. At this jb4 time, the client does not indicate any symptoms associated with coronavirus-19. Ebola Screen: No symptoms or risks identified at this time. Initial Sepsis Screen: Does the patient meet any 2 criteria? HR > 90 bpm. Yes Does the patient have a suspected source of infection? No. Patient's initial sepsis screen is negative. Risk Assessment: Do you want to hurt yourself or someone else? Patient reports no desire to harm self or others. Onset of symptoms was August 11, 2020. Care prior to arrival: None. Transition of care: patient was not received from another setting of care. 19:00 Method Of Arrival: Wheelchair jb4 19:00 Acuity: STEF 2 jb4 Historical: - Allergies: 19:00 AZO Standard; jb4 19:00 Iodine; jb4 19:00 PENICILLINS; jb4 19:00 Demerol; jb4 - Home Meds: 19:00 aspirin 81 mg Oral TbEC 1 tab once daily [Active]; clopidogrel 75 mg Oral tab [Active]; jb4 finasteride 5 mg Oral tab [Active]; gabapentin 60mg Oral [Active]; glimepiride 4 mg Oral tab [Active]; losartan 50 mg Oral tab [Active]; metformin 1,000 mg Oral tab [Active]; metoprolol tartrate 37.5 mg oral tab 1 tab once daily [Active]; rabeprazole 20 mg Oral TbEC [Active]; trazodone 50 mg Oral tab [Active]; - PMHx: 19:00 BPH; Cataracts; Diabetes - NIDDM; GERD; Myocardial infarction; Ulcers; jb4 - PSHx: 19:00 Heart stents; jb4 - Immunization history:: Adult Immunizations up to date. - Social history:: Smoking status: Patient denies any tobacco usage or history of. Patient/guardian denies using alcohol, street drugs. Screenin:40 Abuse screen: Denies threats or abuse. Nutritional screening: No deficits noted. vg1 Tuberculosis screening: No symptoms or risk factors identified. Fall Risk No fall in past 12 months (0 pts). No secondary diagnosis (0 pts). IV access (20 points). Ambulatory Aid- None/Bed Rest/Nurse Assist (0 pts). Gait- Normal/Bed Rest/Wheelchair (0 pts) Mental Status- Oriented to own ability (0 pts). Total Rodriugez Fall Scale indicates No Risk (0-24 pts). Assessment: 19:40 General: Appears uncomfortable, obese, Behavior is calm, cooperative. Pain: Complains vg1 of pain in left side of chest Pain radiates to left upper quadrant Pain currently is 10 out of 10 on a pain scale. Quality of pain is described as sharp, Pain began 1 hour ago. 19:40 Neuro: Level of Consciousness is awake, alert, Oriented to. Cardiovascular: Capillary vg1 refill < 3 seconds in bilateral fingers. Respiratory: Airway is patent Respiratory effort is even, unlabored, Respiratory pattern is regular, symmetrical. GI: No signs and/or symptoms were reported involving the gastrointestinal system. : No signs and/or symptoms were reported regarding the genitourinary system. EENT: No signs and/or symptoms were reported regarding the EENT system. Derm: Skin is intact, is healthy with good turgor. Musculoskeletal: Circulation, motion, and sensation intact. 19:40 Neuro: Level of Consciousness is awake, alert, obeys commands, Oriented to person, vg1 place, time, situation. 20:30 Reassessment: No changes from previously documented assessment. Patient is alert, vg1 oriented x 3, equal unlabored respirations, skin warm/dry/pink. 21:30 Reassessment: Patient appears in no apparent distress at this time. Patient is alert, vg1 oriented x 3, equal unlabored respirations, skin warm/dry/pink. Patient states pain level is 7/10, but would like some more pain medication. Provider Notified. Vital Signs: 19:00 BP 180 / 100; Pulse 100; Resp 16; Temp 97.9(O); Pulse Ox 100% on R/A; Weight 136.08 kg jb4 (R); Height 5 ft. 7 in. (170.18 cm); Pain 10/10; 19:30 BP 110 / 67; Pulse 100; Resp 18; Pulse Ox 100% on R/A; vg1 20:00 BP 128 / 85; Pulse 96; vg1 20:10 BP 135 / 85; Pulse 95; Resp 20; Pulse Ox 100% on R/A; vg1 20:30 BP 148 / 89; Pulse 95; Resp 18; Pulse Ox 98% on R/A; vg1 21:00 BP 146 / 71; Pulse 92; Resp 18; Pulse Ox 98% on R/A; vg1 21:30 BP 141 / 75; Pulse 97; Resp 14; Pulse Ox 98% on R/A; vg1 22:00 BP 136 / 74; Pulse 98; Resp 18; Pulse Ox 97% on R/A; vg1 19:00 Body Mass Index 46.99 (136.08 kg, 170.18 cm) jb4 ED Course: 18:53 Patient arrived in ED. rg4 18:59 Robin Alvarado NP is PHCP. pm1 18:59 Tucker Kumar MD is Attending Physician. pm1 19:00 Laxmi Christopher, LYRIC is Primary Nurse. vg1 19:00 Arm band placed on right wrist. jb4 19:13 Triage completed. jb4 19:36 X-ray at bedside. vg1 19:40 Patient has correct armband on for positive identification. Call light in reach. Side vg1 rails up X2. 19:40 conveyor monitor on. Pulse ox on. NIBP on. vg1 19:40 Patient maintains SpO2 saturation greater than 95% on room air. vg1 19:46 XRAY Chest (1 view) In Process Unspecified. EDMS 20:12 Mayank Duffy DO is Hospitalizing Provider. pm1 21:00 No provider procedures requiring assistance completed. Patient admitted, IV remains in vg1 place. 08/12 01:58 Primary Nurse role handed off by Laxmi Christopher, RN mw2 12:51 Tristen Lemon, LYRIC is Primary Nurse. em Administered Medications: 08/11 19:11 Drug: Nitrostat 0.4 mg Route: Sublingual; jb4 19:11 Drug: Aspirin Chewable Tablet 324 mg Route: PO; jb4 19:25 Drug: Nitrostat 0.4 mg Route: Sublingual; jb4 20:00 Follow up: BP 128 / 85; Pulse 96 bpm; Response: No adverse reaction vg1 20:15 Drug: fentaNYL (PF) 50 mcg {Note: rass 1.} Route: IVP; Site: right antecubital; vg1 22:42 Follow up: Response: No adverse reaction vg1 20:40 Drug: Lovenox 1 mg/kg Route: Sub-Q; Site: right upper abdomen; vg1 21:40 Follow up: Response: No adverse reaction vg1 Outcome: 20:12 Decision to Hospitalize by Provider. pm1 21:00 Admitted to ER Hold. [facility] vg1 21:00 Condition: stable 21:00 Instructed on the need for admit. 08/12 14:14 Patient left the ED. em Signatures: Dispatcher [employer] Tristen Espinoza RN RN em Robin Alvarado, ROZ CHEMICAL PROCESS ENGINEER pm1 Elizabeth Christopher rg4 Ton Centeno RN RN jb4 Marilee New mw2 Laxmi Christopher RN RN vg1 Corrections: (The following items were deleted from the chart) 08/11 20:42 19:40 Neuro: Level of Consciousness is awake, alert, obeys commands, Oriented to vg1 person, place, time, situation, vg1
[2020-08-11] MEDS ORDERED: ENOXAPARIN 40 MG/0.4 ML SQ ONE (20:41)
[2020-08-11] MEDS ORDERED: ENOXAPARIN 100 MG/ML SYR SQ ONE (20:41)
[2020-08-11] MEDS ORDERED: ENOXAPARIN 80 MG/0.8 ML SQ ONE (20:44)
[2020-08-11] MEDS ORDERED: ONDANSETRON 4 MG/2 ML VIAL IV PRN (20:49)
[2020-08-11] MEDS ORDERED: ACETAMINOPHEN 500 MG TAB PO PRN (20:49)
--- NOTE | 2020-08-11 20:58 | P.HP ---
Certification for Inpatient Patient admitted to: Observation Practitioner: I am a practitioner with admitting privileges, knowledge of patient current condition, hospital course, and medical plan of care. Services: Services provided to patient in accordance with Admission requirements found in Title 42 Section 412.3 of the Code of Federal Regulations Patient History Date of Service: 08/12/20 Reason for admission: Chest pain. History of Present Illness: 64 y o male pt with hx of Obesity, Hypertension, Hyperlipidemia, CAD s/p CABG and multiple cardiac stents, Diabetes type 2 admitted for management of chest pain. He reported chest pain which is non exertional and which occurs at rest. he denied any issues with cough, fever, chills, sore throat or generalized body aches. He was started on ACS protocol due to his prior hx. CXR and ekg done showed no abnormality. Initial troponin was non revealing. He was admitted for chest pain work up. Allergies iodine Allergy (Severe, Verified 08/12/20 04:20) Anaphylaxis Penicillins Allergy (Intermediate, Verified 12/27/19 04:14) Hives/Rash phenazopyridine Adverse Reaction (Severe, Verified 08/12/20 04:20) Anaphylaxis Home Medications: Aspirin [Aspirin EC 81 MG] 1 tab PO DAILY 12/27/19 Clopidogrel Bisulfate [Plavix*] 1 tab PO DAILY 12/27/19 Finasteride 5 mg PO DAILY 12/27/19 Gabapentin 1 tab PO BID 12/27/19 Glimepiride 1 tab PO BID 12/27/19 Losartan Potassium 1 tab PO DAILY 12/27/19 Metformin HCl 1 tab PO BID 12/27/19 Metoprolol Succinate [Toprol Xl] 1 tab PO DAILY 12/27/19 Montelukast Sodium 1 tab PO DAILY 12/27/19 Rabeprazole Sodium 1 tab PO DAILY 12/27/19 predniSONE [Prednisone*] 20 mg PO BID #6 tab 12/27/19 - Past Medical/Surgical History Diabetic: No -: HTN -: Hyperlipidemia -: BPH -: GERD -: NM -: Heart stent, 2004 -: Heart stent, 2005 -: Cataract Surgery (Right eye) -: Total Left Knee Replacement -: Cholecystectomy - Social History Alcohol use: No CD- Drugs: No Caffeine use: Yes Physical Examination - Vital Signs Temperature: 98 F Blood Pressure: 149/87 Pulse: 87 Respirations: 16 Pulse Ox (%): 96 - Physical Exam General: Alert, Oriented x3 HEENT: Atraumatic, Normocephalic Neck: Supple Respiratory: Clear to auscultation bilaterally Cardiovascular: Regular rate/rhythm, Normal S1 S2 Gastrointestinal: Soft and benign, Other (obese) Integumentary: No rashes Neurological: Normal speech, Normal strength at 5/5 x4 extr, Cranial nerves 3-12 intact - Studies Laboratory Data (last 24 hrs) 08/11/20 19:01: PT 12.7 H, INR 1.08 08/11/20 19:01: WBC 10.8, Hgb 15.8, Hct 47.9, Plt Count 161 08/11/20 19:01: Sodium 139, Potassium 3.7, BUN 15, Creatinine 1.20, Glucose 240 H, Magnesium 2.0, Total Bilirubin 0.7, AST 31, ALT 46, Alkaline Phosphatase 95 Assessment and Plan - Plan 1.Chest pain-Pt does have a hx of CAD and he has had coronary artery bypass surgery in December of 2019. we will trend troponin and CKMB. we will start morphine for pain relief and have him on telemetry. Cardiology to evaluate. Aspirin therapy to be continued pending further review. 2.CAD-Management as above. 3.Hypertension-We will continue antihypertensive medication of Losartan. Goal BP is <130/80mmhg. 4.Diabetes type 2-We will continue SSI for glucose control. Glimepiride dose will be continued. 5.Hyperlipidemia-We will continue statin therapy. Discharge Plan: Home Plan to discharge in: Unknown - Advance Directives Does patient have a Living Will: No Does patient have a Durable POA for Healthcare: No
[2020-08-11] MEDS: HOME MED 1 EA UNK (Glimepiride [Glimepiride] 4 MG Tablet) PO SCH (21:00)
[2020-08-11] MEDS: INSULIN -REGULAR HUMAN 50 UNIT/0.5 ML ML SQ SCH (21:00)
[2020-08-11] MEDS: MORPHINE 2 MG/ML SYR IV PRN (22:45)
[2020-08-11] MEDS ORDERED: ONDANSETRON 4 MG/2 ML VIAL ONE (22:48)
[2020-08-11 22:59] LABS: CKMB Creatine Kinase MB < 1.0 ng/mL (0.3-3.6); Creatine Phosphokinase 50 U/L (39-308); Troponin I < 0.02 ng/mL (0.0-0.045)
[2020-08-12] MEDS ORDERED: GABAPENTIN 300 MG CAP ONE ×2 (00:02→07:51)
[2020-08-12] MEDS ORDERED: INSULIN -REGULAR HUMAN 50 UNIT/0.5 ML ML ONE ×3 (00:02→12:08)
[2020-08-12] MEDS: HOME MED 1 EA UNK (Glimepiride [Glimepiride] 4 MG Tablet) PO SCH (00:04)
[2020-08-12] MEDS ORDERED: GLIMEPIRIDE 2 MG TABLET ONE (00:10)
[2020-08-12 00:21] VITALS: BMI 47.0
[2020-08-12 03:02] LABS: Urine Blood NEGATIVE (NEG); Urine Glucose TRACE (NEG); Urine Protein NEGATIVE (NEG); Urine Specific Gravity >1.030 (1.005-1.030); Urine pH 5.5 (5.0-7.0)
[2020-08-12] MEDS: MORPHINE 2 MG/ML SYR IV PRN ×4 (03:15→20:58)
[2020-08-12] MEDS ORDERED: MORPHINE 2 MG/ML SYR ONE ×2 (03:23→07:51)
[2020-08-12 05:54] LABS: CKMB Creatine Kinase MB < 1.0 ng/mL (0.3-3.6); Creatine Phosphokinase 41 U/L (39-308); HDL Cholesterol 38 mg/dL (40-60); LDL Cholesterol, Calculated 20 (<130); Troponin I < 0.02 ng/mL (0.0-0.045)
[2020-08-12 06:09] LABS: Urine Appearance TURBID; Urine Bilirubin NEGATIVE (NEG); Urine Blood NEGATIVE (NEG); Urine Color YELLOW; Urine Glucose TRACE (NEG); Urine Protein NEGATIVE (NEG); Urine Specific Gravity >=1.030 (1.005-1.030)
[2020-08-12 06:23] LABS: Urine Microscopic Reflex ORDER UMIC
[2020-08-12 06:30] LABS: Urine Bacteria LOADED /HPF (NONE SEEN); Urine Mucus 2+ /HPF (NONE SEEN); Urine RBC <5 /HPF (NONE SEEN)
[2020-08-12] MEDS: INSULIN -REGULAR HUMAN 50 UNIT/0.5 ML ML SQ SCH ×4 (07:30→20:58)
[2020-08-12] MEDS ORDERED: METOPROLOL XL 50 MG TAB PO ONE (07:51)
[2020-08-12] MEDS ORDERED: ASPIRIN EC 81 MG TAB PO ONE (07:51)
[2020-08-12] MEDS ORDERED: ENOXAPARIN 40 MG/0.4 ML SQ ONE (07:52)
[2020-08-12] MEDS: ASPIRIN EC 81 MG TAB PO SCH (08:13)
[2020-08-12] MEDS: GABAPENTIN 300 MG CAP PO SCH ×2 (08:14→20:57)
[2020-08-12] MEDS: ENOXAPARIN 40 MG/0.4 ML SQ SCH (08:14)
[2020-08-12] MEDS: METOPROLOL XL 100 MG TAB PO SCH (08:15)
[2020-08-12] MEDS: FINASTERIDE 5 MG TAB PO SCH (09:00)
[2020-08-12] MEDS: MONTELUKAST 10 MG TAB PO SCH (09:00)
[2020-08-12] MEDS: LOSARTAN POTASSIUM 50 MG TABLET PO SCH (09:00)
[2020-08-12] MEDS ORDERED: CLOPIDOGREL 75 MG TABLET PO SCH (09:00)
[2020-08-12] MEDS: GLIMEPIRIDE 2 MG TABLET PO SCH ×2 (09:00→20:58)
--- NOTE | 2020-08-12 13:35 | P.PN ---
Subjective Date of Service: 08/12/20 Chief Complaint: Chest pain. Patient complaining of intermittent ongoing chest pain. He denies shortness of breath. 2 sets of troponin is negative. Physical Examination - Vital Signs Temperature: 98.6 F Blood Pressure: 115/71 Pulse: 115 Respirations: 16 Pulse Ox (%): 100 - Physical Exam General: Oriented x3, Obese Neck: JVD not distended Respiratory: Clear to auscultation bilaterally, Normal air movement Cardiovascular: Regular rate/rhythm, Normal S1 S2, Edema (Trace bilateral lower extremity edema) Gastrointestinal: Normal bowel sounds, Soft and benign, Non-distended, No tenderness Musculoskeletal: No swelling, No tenderness Integumentary: No rashes - Studies Laboratory Data (last 24 hrs) 08/11/20 19:01: PT 12.7 H, INR 1.08 08/11/20 19:01: WBC 10.8, Hgb 15.8, Hct 47.9, Plt Count 161 08/11/20 19:01: Sodium 139, Potassium 3.7, BUN 15, Creatinine 1.20, Glucose 240 H, Magnesium 2.0, Total Bilirubin 0.7, AST 31, ALT 46, Alkaline Phosphatase 95 Assessment And Plan - Current Problems (Diagnosis) (1) Unstable angina Current Visit: Yes Status: Acute (2) History of coronary artery bypass graft Current Visit: Yes Status: Acute (3) Coronary artery disease Onset Date: 01/19/17 Current Visit: No Status: Acute (4) Diabetes mellitus type 2 in obese Current Visit: No Status: Acute (5) Hypertension Current Visit: No Status: Acute - Plan Continue to trend troponin. Continue aspirin and Plavix. Will give and dose of full-dose Lovenox today given ongoing chest pain. Continue metoprolol. Cardiology consult. Obtain echocardiogram. Continue home diabetes regimen. Continue home dose stating. He is currently normotensive.
[2020-08-12] MEDS ORDERED: NITROGLYCERIN 0.4 MG/TAB SL PRN (13:49)
[2020-08-12 15:07] LABS: CKMB Creatine Kinase MB < 1.0 ng/mL (0.3-3.6); Creatine Phosphokinase 33 U/L (39-308); Troponin I < 0.02 ng/mL (0.0-0.045)
--- NOTE | 2020-08-12 15:27 | EKG ---
Test Date: 2020-08-11 Test Time: 19:01:37 Sales Representative [employer]: MEEK MEASUREMENT RESULTS: Intervals: Rate: 97 CO: 202 QRSD: 94 QT: 372 QTc: 472 [place]: P: 57 CO: 202 QRS: 69 T: 39 INTERPRETIVE STATEMENTS: Normal sinus rhythm Cannot rule out Anteroseptal infarct, age undetermined Abnormal ECG Compared to ECG 12/26/2019 20:18:53 Sinus tachycardia no longer present Myocardial infarct finding still present Electronically Signed On 08-12-20 15:26:27 RESTAURANT RECRUITER by Donnell Harris
[2020-08-12] MEDS ORDERED: ENOXAPARIN 100 MG/ML SYR SQ ONE (16:00)
[2020-08-13] MEDS: FINASTERIDE 5 MG TAB PO SCH (08:41)
[2020-08-13] MEDS: ASPIRIN EC 81 MG TAB PO SCH (08:41)
[2020-08-13] MEDS: GABAPENTIN 300 MG CAP PO SCH (08:41)
[2020-08-13] MEDS: MONTELUKAST 10 MG TAB PO SCH (08:42)
[2020-08-13] MEDS: ENOXAPARIN 40 MG/0.4 ML SQ SCH (08:42)
[2020-08-13] MEDS: INSULIN -REGULAR HUMAN 50 UNIT/0.5 ML ML SQ SCH ×2 (08:42→12:02)
[2020-08-13] MEDS: GLIMEPIRIDE 2 MG TABLET PO SCH (08:42)
[2020-08-13] MEDS: LOSARTAN POTASSIUM 50 MG TABLET PO SCH (08:42)
[2020-08-13] MEDS: METOPROLOL XL 100 MG TAB PO SCH (08:44)
[2020-08-13 11:05] VITALS: O2SAT 94
--- NOTE | 2020-08-13 11:14 | P.DS ---
Admission Date: 08/12/20 Discharge Date: 08/13/20 Disposition: ROUTINE DISCHARGE Discharge Condition: FAIR Reason for Admission: Chest pain. Consultations: Cardiology-Dr. Harris - Problems (1) Unstable angina Current Visit: Yes Status: Acute (2) History of coronary artery bypass graft Current Visit: Yes Status: Acute (3) Coronary artery disease Onset Date: 01/19/17 Current Visit: No Status: Acute (4) Diabetes mellitus type 2 in obese Current Visit: No Status: Acute (5) Hypertension Current Visit: No Status: Acute Brief History of Present Illness: 64-year-old gentleman with a history of coronary artery disease status post CABG, obesity, hypertension presented to the emergency department with a complaint of chest pain of sudden onset, not related to exertion, occurred at rest. His initial troponin in the ED was negative. EKG did not shows any significant ischemic changes. Given patient's cardiac risk factors, he was hospitalized for ACS rule out. Hospital Course: Patient continued to have ongoing chest pain. Troponin trended negative. Patient was seen by cardiology will considered his chest pain noncardiac. Dr. Harris recommended follow up with him as an outpatient. His blood pressure was initially elevated with systolic up to 188 on arrival to the ED but it has been stable and normotensive the rest of the hospital stay. ACS has been ruled out. Patient is deemed clinically stable for discharge. All his medications are resumed on discharge. Vital Signs/Physical Exam: Temp Pulse Resp BP Pulse Ox 97.5 F 94 H 18 133/63 94 08/13/20 04:00 08/13/20 08:44 08/13/20 04:00 08/13/20 08:44 08/13/20 04:00 General: Alert, In no apparent distress, Obese HEENT: Mucous membr. moist/pink Respiratory: Clear to auscultation bilaterally, Normal air movement Cardiovascular: No edema, Regular rate/rhythm, Normal S1 S2 Gastrointestinal: Normal bowel sounds, Soft and benign Musculoskeletal: No swelling, No tenderness Neurological: Normal strength at 5/5 x4 extr Laboratory Data at Discharge: WBC 10.8 K/uL (4.3-10.9) 08/11/20 19:01 Hgb 15.8 g/dL (13.6-17.9) 08/11/20 19:01 Hct 47.9 % (39.6-49.0) 08/11/20 19:01 Plt Count 161 K/uL (152-406) 08/11/20 19:01 PT 12.7 SECONDS (9.5-12.5) H 08/11/20 19:01 INR 1.08 08/11/20 19:01 Sodium 139 mmol/L (136-145) 08/11/20 19:01 Potassium 3.7 mmol/L (3.5-5.1) 08/11/20 19:01 BUN 15 mg/dL (7-18) 08/11/20 19:01 Creatinine 1.20 mg/dL (0.55-1.3) 08/11/20 19: Glucose 240 mg/dL (74-106) H 08/11/20 19: Magnesium 2.0 mg/dL (1.8-2.4) 08/11/20 19: Total Bilirubin 0.7 mg/dL (0.2-1.0) 08/11/20 19:01 AST 31 U/L (15-37) 08/11/20 19: ALT 46 U/L (12-78) 08/11/20 19:01 Alkaline Phosphatase 95 U/L (45-117) 08/11/20 19:01 Troponin I < 0.02 ng/mL (0.0-0.045) 08/12/20 14:40 Triglycerides Cancelled 08/12/20 05:00 Cholesterol Cancelled 08/12/20 05:00 HDL Cholesterol Cancelled 08/12/20 05:00 Cholesterol/HDL Ratio Cancelled 08/12/20 05:00 Home Medications: Aspirin [Aspirin EC 81 MG] 1 tab PO DAILY 12/27/19 Finasteride 5 mg PO DAILY 12/27/19 Gabapentin 1 tab PO BID 12/27/19 Montelukast Sodium 1 tab PO DAILY 12/27/19 Atorvastatin Calcium [Lipitor] 40 mg PO BEDTIME 08/12/20 Dulaglutide [Trulicity] 1.5 mg SQ Q7D 08/12/20 Glimepiride [Amaryl*] 2 mg PO DAILY 08/12/20 Losartan/Hydrochlorothiazide [Losartan-Hctz 50-12.5 mg Tab] 1 each PO DAILY 10/28 Metoprolol Tartrate 75 mg PO DAILY 08/12/20 Torsemide [Demadex*] 20 mg PO DAILY 08/12/20 Nitroglycerin [Nitrostat*] 0.4 mg SL UD PRN #25 tab 08/13/20 New Medications: Nitroglycerin [Nitrostat*] 0.4 mg SL UD PRN #25 tab PRN Reason: Pain Scale 2-4 (Mild) Followup: Donnell Harris MD [ACTIVE - CAN ADMIT] - 1-2 Weeks (Follow up in office in 1-2 weeks. Call to schedule an appointment. ) Time spent managing pt's care (in minutes): 36
[2020-08-13 13:21] VITALS: BP 128/59; TEMP 98.3
== END 2020-08-13 12:33 | disposition home or self-care (01) | DRG 303 ==
LOC: ER 18:48 → ERHOLD 20:56 → INTOOBSV 20:56 → OBSVTOIN 20:56 → 2ND 08-12 14:05 → OBSVTOIN 08-12 16:06
PROVIDERS: ADMIT Family Medicine; ATTEND Internal Medicine
DX: I25.110 Atherosclerotic heart disease of native coronary artery with unstable angina pectoris (principal); Z68.42 Body mass index [BMI] 45.0-49.9, adult; E66.9 Obesity, unspecified; K21.9 Gastro-esophageal reflux disease without esophagitis; E78.5 Hyperlipidemia, unspecified; E11.9 Type 2 diabetes mellitus without complications; I25.2 Old myocardial infarction; R07.89 Other chest pain; Z88.0 Allergy status to penicillin; Z88.8 Allergy status to other drugs, medicaments and biological substances; Z79.82 Long term (current) use of aspirin; Z79.02 Long term (current) use of antithrombotics/antiplatelets; Z79.84 Long term (current) use of oral hypoglycemic drugs; Z79.899 Other long term (current) drug therapy; Z95.5 Presence of coronary angioplasty implant and graft; Z88.6 Allergy status to analgesic agent; Z95.1 Presence of aortocoronary bypass graft; Z79.52 Long term (current) use of systemic steroids; Z96.652 Presence of left artificial knee joint; Z20.822 Contact with and (suspected) exposure to COVID-19
CPT/HCPCS: 36415; 71045; 80048; 80061; 80076; 81003; 81015; 82550; 82553; 82947; 83735; 83880; 84484; 85025; 85610; 87086; 87088; 93005; 96372; 96374; 99285; G0378; J1650; J2270; J2405; J3010; U0003

== ENCOUNTER 2021-03-15 16:42 | Emergency (ER) | payer BC, OTHER ==
--- OUTSIDE RECORDS SUMMARY | 2021-03-15 16:51 | XMS REPORT | Continuity of Care Document ---
:[address] [facility] t Address [address] [place] [address] Care Team Providers Name Role Phone System, Not In Primary Care Physician Unavailable Teresa Sorto MD Attending Clinician Miriam COURTNEY, Jennifer Attending Clinician MARGA WEST Attending Clinician Unavailable Marga West MD Attending Clinician Rafita PERDUE V. Attending Clinician Bere GUNTER Attending Clinician TERESA SORTO Attending Clinician Unavailable Kathy Vásquez DO Attending Clinician Agueda Gunter MD Attending Clinician Lab, Fam Pob I Attending Clinician Unavailable Kris WEINBERG Attending Clinician Unavailable Nilsa ELLER Admitting Clinician Unavailable TERESA SORTO Admitting Clinician Unavailable Kris WEINBERG Admitting Clinician Unavailable Payers Payer Name Policy Type Policy Effective Date Expiration Date Sour ce Number MEDICAREMEDICARE PART [id number] 2019 Nisha Ov[place]o [id number] 2018-P 00:00:00 - Medical resentMedicare Center BLUE CROSS/BLUE [id number] [address] [facility] [facility] SHIELDBCBS PPO POS EPO 7 00:00:00 - Medical [id number] nter [id number], [place] [address]POE Problems Condition Condition Condition Status Onset Resolution Last Treating Co mments Source Name Details Category Date Date Treatment Clinician Date Left leg Left leg Disease Active [facility] cellulitis cellulitis 01-14 Mimi kes - 00:00: Medical 00 Center Localized Localized Disease Active [facility] swelling swelling 12-31 [facility] - of left of left 00:00: Medical lower leg lower leg 00 Cent er Leg mass Leg mass Disease Active [facility] 12[facility] - 00:00: Medical 00 Center 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 - disease disease 00:00: Medical 00 Center S/P ACB x2 S/P ACB x2 Disease Active [facility] by by 12-27 Lucy Sorto man on 00:00: Me dical 12/29/19 12/29/19 00 Center Acute Acute Disease Active [facility] respirator respirator [facility] - y y Medical insufficie insufficie Ce ntdaysi ncy ncy Morbid Morbid Disease Active [facility] obesity obesity [facility] - with BMI with BMI Medica l of of Center 45.0-49.9, 45.0-49.9, adult adult Acute Acute Disease Active [facility] blood loss blood loss [facility] - anemia anemia [facility] Hyperglyce Hyperglyce Disease Active [facility] allison [facility] Hypotensio Hypotensio Disease Active [facility] n after n after [facility] - procedure procedure [facility] Acute Acute Disease Active [facility] respirator respirator [facility] - y failure y failure [facility] with with Center hypoxia hypoxia S/P CABG S/P CABG Disease Active [facility] (coronary (coronary [place] - artery artery Medical bypass bypass [place] graft) graft) Paroxysmal Paroxysmal Disease Active [facility] atrial atrial [facility] [place] - fibrillati fibrillati Me dical on on Center Allergies, Adverse Reactions, Alerts Allergy Allergy Status Severity Reaction(s) Onset Inactive Treating Comm ents Source Name Type Date Date Clinician Iodinate DA Active [facility] d 6-10 Clear Contrast 00:00: Amanda - Oral 00 [facility] Penicill DA Active [facility] ins 6-10 Clear 00:00: Amanda [address] [facility] phenazop DA Active [facility] yridine 6-10 Clear 00:00: Amanda [address] [facility] Iodinate DA Active [facility] d 1-15 [place] Contrast 00:00: Orthope - Oral 00 dic and IV [facility]osp[facility] D[facility] Penicill DA Active [facility] ins 8-06 [facility] 00:[facility]: [facility] [place] iodine DA Active [facility] 8-06 [facility] 00:[facility]: [facility] [place] phenazop DA Active [facility] yridine 8-06 [facility] 00:00: [facility] [place] Phenazop Propensi Active Anaphylaxis [facility] yridine ty to 09-07 [facility] - adverse 00:00: Medical reaction 00 Center s Iodine Propensi Active Anaphylaxis, Other [facility] ty to Hives, Rash 6-13 reaction( [facility] - adverse 00:00: s): Medical reaction 00 Hives/[facility] Cent[facility] r s hIV Iodine Penicill Propensi Active Anaphylaxis, [facility] ins ty to Hives 6-13 [facility] - adverse 00:00: Medical reaction 00 [place] s Family History Family Member Diagnosis Comments Start Date Stop Date Source Natural father Hodgkin's lymphoma [facility] Maternal grandfather Diabetes [facility] Maternal uncle Diabetes [facility] Natural mother Rheum arthritis [facility] Natural mother Thyroid disease [facility] Paternal grandfather Diabetes [facility] Social History Social Habit Start Date Stop Date Quantity Comments Source History of tobacco Cigar Smoker [facility] Sex Assigned [facility] Tobacco use and 2021-02-14 2021-02-14 Former user [facility] - exposure 00:00:00 00:00:00 Medical Center Alcohol intake 2021-02-14 2021-02-14 Current drinker [facility] - 00:00:00 00:00:00 of alcohol Medical Center (finding) Alcohol Comment 2020-12-28 2020-12-28 1 beer/month [facility] - 00:00:00 00:00:00 Medical Center History [facility] 2019-12-28 2019-12-[address] [facility] - Alcohol Frequency 00:00:00 00:00:00 Medical Center History [facility] 2019-12-28 2019-12-[address] [facility] - Alcohol Std Drinks 00:00:00 00:00:00 Medica l Center History [facility] 2019-12-28 2019-12-[address] [facility] - Alcohol Binge 00:00:00 00:00:[address] [facility] 2019-12-28 2019-12-[address] [facility] - Education 00:00:00 00:00:00 Medical Center History [facility] 2019-12-28 2019-12-[address] [facility] - Financial 00:00:00 00:00:00 Medical Center History [facility] Food 2019-12-28 2019-12-[address] [facility] - Worry 00:00:00 00:00:00 Medical Center History [facility] Food 2019-12-28 2019-12-[address] [facility] - Scarcity 00:00:00 00:00:00 Medical Center History [facility] 2019-12-28 2019-12-[address] [facility] - Transport Med 00:00:00 00:00:[address] History [facility] 2019-12-28 2019-12-[address] [facility] - Transport Non-Med 00:00:00 00:00:00 Medical Center Smoking Status Start Date Stop Date Source Never smoker [facility] Medications Ordered Filled Start Stop Current Ordering Indication Dosage Frequency Signature Comments Components Source Medication Medication Date Date Medication? Clinician (SIG) Name Name mirabegron Yes 50mg QD Take [address] (Myrbetriq) 7-08 by mouth Luke s - 50 mg Tb24 09:27: daily. Medic al ER tablet 26 [place] multivitami Yes 1{tbl} QD Take [address] n per 7-08 tablet by [facility] - tablet 09:27: mouth Medical 26 daily. [place] ferrous Yes 1{tbl} QD Take [address] fumarate/vi 7-08 tablet by Ava es - t Bcomp,C 09:27: mouth Medical (SUPER B 26 daily. Center COMPLEX ORAL) omeprazole/ Yes 1{tbl} QD Take [address] sodium 7-08 tablet by Lucy - bicarbonate 09:27: mouth Medic al (ZEGERID 26 nightly. Center ORAL) acetaminoph 2020- No 1{tbl} Take [address] en-codeine 01-24 tablet by Ava es - (Tylenol-Co 00:00: 23:59 mouth Medi karla deine #3) 00 :00 every 6 Center 300-30 mg (six) per tablet hours as needed for Pain for up to 10 days. Max Daily Amount: 4 tablets HYDROcodone 2020- No 1{tbl} Take [address] -acetaminop 01-18 tablet by Mimi saravia (NORCO 00:00: 23:59 mouth Medic al 7.5-325) 00 :00 every 6 Center 7.5-325 mg (six) per tablet hours as needed for up to 10 days. Max Daily Amount: 4 tablets ciprofloxac 2020- No 500mg Take [address] in HCl 01-18 tablet Lucy - (CIPRO) 500 00:00: 23:59 (500 mg Me dical MG tablet 00 :00 total) by [facility] every 12 (twelve) hours for 3 days. clindamycin 2020- No 300mg Take [address] (CLEOCIN) 01-18 capsule Mimikes - 300 MG 00:00: 23:59 (300 mg Medical capsule 00 :00 total) by [facility] every 6 (six) hours for 3 days. atorvastati Yes 40mg QD Take [address] n (LIPITOR) 01-08 by mouth Justin s - 40 MG 00:00: daily. Medical tablet 00 Center metoprolol Yes .5{tbl} QD Take 0.[address] tartrate 75 6- tablets by Mimi kes - mg Tab 00:00: mouth Medical 00 daily. Center traMADoL 2020- No 50mg Take [address] (ULTRAM) 50 01-01- tablet (50 L ukes - mg tablet 00:00: 23:59 mg total) Me dical 00 :00 by mouth Center every 6 (six) hours as needed for Pain for up to 10 days. Max Daily Amount: 200 [address] [facility] ne -19 [facility] - (HIBICLENS) 11:46: Medica l external 24 Center liquid 4% Trulicity Yes 1.5mg Q7D Inject 1.[address] 1.5 mg/0.5 4-24 mg [facility] - mL PnIj 00:00: subcutaneo Medi karla 00 usly once Center a week. fenofibrate Yes 160mg QD Take [address] (TRIGLIDE,L 3-15 mg by [facility] - OFIBRA) 160 00:00: mouth Medic al MG tablet 00 daily. Center aspirin 81 2020- No 81mg QD Take [address] MG chewable 01-06- tablet (81 L ukes - tablet 00:00: 23:59 mg total) Medic al 00 :00 by mouth Center daily. amiodarone 2020- No 400mg QD Take [address] (PACERONE) 01-06- tablet [facility] - 400 MG 00:00: 00:00 (400 mg Medical tablet 00 :00 total) by Center mouth daily. pen needle, Yes To use [address] diabetic 31 01-05 day. [facility] - gauge x 00:00: Medical 12/23" Ndle 00 Center blood-gluco No Glucometer [facility] se meter 01-05 : test [facility] - kit 00:00: 23:59 strips to Medical 00 :00 use 4 a Center day # 400 refills x 3;lancets to use 4 a day # 400 Refills x3. atorvastati 2020- No 40mg QD Take [address] n (LIPITOR) 01-05- tablet (40 L ukes - 40 MG 00:00: 23:59 mg total) Medica l tablet 00 :00 by mouth Center nightly. metoprolol 2020- No 75mg Q.5D Take [address] tartrate 75 01-05 by mouth 2 L ukes - mg Tab 00:00: 23:59 (two) Medical 00 :00 times Center daily. torsemide No 20mg Q.5D Take 1 [facility] (DEMADEX) 01-05- tablet (20 Ava es - 20 MG 00:00: 23:59 mg total) Medica l tablet 00 :00 by mouth 2 Center (two) times daily. insulin No 50U Q.5D Inject [address] glargine 01-05- Units [facility] - (LANTUS 00:00: 00:00 subcutaneo Med ical SOLOSTAR 00 :00 usly 2 Center U-100 (two) INSULIN) times 100 unit/mL daily. (3 mL) InPn insulin To use [facility] aspart 01-05 from 15 to [facility] - U-100 00:00: 00:00 45 units Medical (NOVOLOG 00 :00 three Center FLEXPEN times a U-100 day by INSULIN) sliding 100 unit/mL sale (3 mL) In before meals. HYDROcodone 2020- No 1{tbl} Take [address] -acetaminop 01-05 tablet by Mimi saravia (NORCO 00:00: 00:00 mouth Medic al 7.5-325) 00 :00 every 6 Center 7.5-325 mg (six) per tablet hours as needed. Max Daily Amount: 4 tablets montelukast Yes 1{tbl} QD Take [address] (SINGULAIR) 5-19 tablet by Ava es - 10 mg 00:00: mouth Medical tablet 00 daily. [place] RABEprazole 2020- No 1{tbl} QD Take [address] (ACIPHEX) - 05-19 tablet by Luke s - 20 mg EC 00:00: 00:00 mouth Medical tablet 00 :00 daily. [place] glimepiride Yes 4mg Q.5D Take [address] (AMARYL) 4 4-03 by mouth 2 Ava es - MG tablet 00:00: (two) Medical 00 times Center daily. finasteride Yes 5mg QD Take [address] (PROSCAR) 5 3-30 by mouth Luke s - mg tablet 00:00: daily. [address] gabapentin 2020-0 Yes 600mg Q.5D Take [address] (NEURONTIN) 3-10 mg by [facility] - 600 MG 00:00: mouth 2 Medical tablet 00 (two) Center times daily . Immunizations Ordered Immunization Filled Immunization Date Status Commen ts Source Name Name Covid-19 Vaccine 2020-10-16 Completed [facility] - Mrna(pf) (Moderna) 00:00:00 [facility] Covid-19 Vaccine 2020-09-20 Completed [facility] - Mrna(pf) (Moderna) 00:00:00 [facility] Vital Signs Vital Name Observation Time Observation Value Comments Source Systolic blood 2021-02-14 09:20:00 130 mm[Hg] [facility] Diastolic blood 2021-02-14 09:20:00 65 mm[Hg] [facility] Heart rate 2021-02-14 09:20:00 80 /min [facility] Body temperature 2021-02-14 09:20:00 37 [place] [facility] Respiratory rate 2021-02-14 09:20:00 18 /min [facility] Body height 2021-02-14 09:20:00 175.3 cm [facility] Body weight 2021-02-14 09:20:00 133.403 kg [facility] BMI 2021-02-14 09:20:00 43.43 kg/m2 [facility] Oxygen saturation in 2021-02-14 09:20:00 98 /min room air [facility] Arterial blood by Medical Ce nter Pulse oximetry Procedures Procedure Date / Time Performing Clinician Source Performed POCT-GLUCOSE METER 2021-01-18 12:04:00 Carmella Eller V. [facility] POCT-GLUCOSE METER 2021-01-18 08:14:00 Carmella Eller V. [facility] BASIC METABOLIC PANEL (7) 2021-01-18 05:44:00 Carmella Eller V. [facility] CBC (HEMOGRAM ONLY) 2021-01-18 05:44:00 Carmella Eller V. [facility] POCT-GLUCOSE METER 2021-01-17 20:37:00 [facility] POCT-GLUCOSE METER 2021-01-17 16:37:00 [facility]SE [facility]ER 2021-01-17 11:11:00 [facility] POCT-GLUCOSE METER 2021-01-17 07:04:00 [facility] BASIC METABOLIC PANEL (7) 2021-01-17 05:45:00 [facility] CBC (HEMOGRAM ONLY) 2021-01-17 05:45:00 [facility] POCT-GLUCOSE METER 2021-01-16 20:17:00 [facility] POCT-GLUCOSE METER 2021-01-16 16:43:[address] [facility] [address] LOWER EXTREMITY WITHOUT 2021-01-16 16:26:00 [facility] POCT-GLUCOSE METER 2021-01-16 10:18:00 [facility] POCT-GLUCOSE METER 2021-01-16 07:28:00 [facility] BASIC METABOLIC PANEL (7) 2021-01-16 04:52:00 [facility] CBC (HEMOGRAM ONLY) 2021-01-16 04:52:00 [facility] HEMOGLOBIN A1C 2021-01-16 04:52:00 [facility] POCT-GLUCOSE METER 2021-01-15 20:55:00 [facility] POCT-GLUCOSE METER 2021-01-15 16:57:00 [facility] POCT-GLUCOSE METER 2021-01-15 12:29:00 [facility] POCT-GLUCOSE METER 2021-01-15 08:00:00 [facility] BASIC METABOLIC PANEL (7) 2021-01-15 05:03:00 [facility] CBC (HEMOGRAM ONLY) 2021-01-15 05:03:00 [facility] VENOUS DOPPLER LEG, LEFT 2021-01-15 00:52:00 Carmella Eller V. [facility] LACTIC ACID, VENOUS 2021-01-15 00:06:00 [facility] POCT-GLUCOSE METER 2021-01-14 21:07:00 [facility] POCT-GLUCOSE METER 2021-01-14 18:32:00 [facility] POCT-GLUCOSE METER 2021-01-14 18:02:00 [facility] WOUND CULTURE + GRAM STAIN 2021-01-14 16:46:00 [facility] LACTIC ACID, VENOUS 2021-01-14 16:46:00 [facility] KETONE, BLOOD 2021-01-14 15:50:00 [facility] BLOOD CULTURE 2021-01-14 15:17:00 [facility] BLOOD CULTURE 2021-01-14 15:17:00 [facility] ter CBC W/PLT COUNT & AUTO 2021-01-14 15:16:00 Zeny [place] [facility] DIFFERENTIAL [facility] LACTIC ACID, VENOUS 2021-01-14 15:16:00 [facility] COMPREHENSIVE METABOLIC 2021-01-14 15:16:00 Henry Zeny [facility] PROTHROMBIN TIME/INR 2021-01-14 15:16:00 [facility] AP[facility] 2021-01-14 15:16:00 [facility] POCT-GLUCOSE METER 2021-01-14 15:16:00 [facility] VENOUS DOPPLER LEG, LEFT 2021-01-10 12:25:00 Rodri Sorto Nisha [facility] POCT-GLUCOSE METER 2021-01-01 11:53:00 Rodri Sorto [facility] POCT-GLUCOSE METER 2021-01-01 08:06:00 Rodri Sorto [facility] POCT-GLUCOSE METER 2020-12-31 21:06:00 Rodri Sorto [facility] POCT-GLUCOSE METER 2020-12-31 18:36:00 Rodri Sorto [facility] POTASSIUM-STAT LAB 2020-12-31 15:08:00 Lamont [facility] CALCIUM, IONIZED 2020-12-31 15:08:00 Lamont [facility] GLUCOSE-STAT LAB 2020-12-31 15:08:00 [facility] HGB/HCT (H&H) - STAT LAB 2020-12-31 15:08[facility] POCT-GLUCOSE METER 2020-12-31 09:21:00 Rodri Sorto [facility] TISSUE EXAM 2020-12-31 08:19:00 Rodri Sorto [facility] DEBRIDEMENT/I&D,WOUND 2020-12-31 07:10:00 Rodri Sorto [facility] - EXTREMITY LOWER [facility] TYPE AND SCREEN, AUTOMATED 2020-12-31 06:27:00 PatrickRodri ferrara [facility] POCT-GLUCOSE METER 2020-12-31 05:59:00 PatrickRodri [facility] CBC W/PLT COUNT & AUTO 2020-12-26 12:07:00 Patrick Rodri [facility] - DIFFERENTIAL [facility] BASIC METABOLIC PANEL (7) 2020-12-26 12:07:00 Rodri Sorto [facility] TYPE AND SCREEN, AUTOMATED 2020-12-26 12:07:00 PatrickRodri [facility] PROTHROMBIN TIME/INR 2020-12-26 12:04:00 Rodri Sorto [facility] ECG 12-LEAD 2020-12-26 11:43:27 Unknown, Hl7 Doctor [facility] SARS-COV2/RT-PCR ([facility] & 2020-12-26 11:38:00 [facility] Plan of Care Planned Activity Planned Date Details Comments Source Future Scheduled 2022-12-28 [facility]00 (procedure) [code = [facility] 72371488] Future Scheduled 2021-04-18 Hemoglobin A1c [facility] St Mimi kes - Test 00:00:00 [facility] (procedure) [code = 49314946] Future Scheduled 2021-04-10 INFLUENZA VACCINE (#1) [facility] - Test 00:00:00 [code = INFLUENZA Medical Ce nter VACCINE (#1)] Future Scheduled 2020-11-30 PNEUMOCOCCAL 65+ YRS [facility] - Test 00:00:00 (1 of 1 - [facility] [id number]) [code = PNEUMOCOCCAL 65+ YRS (1 of 1 - [id number] PCV13)] Future Scheduled 2005-11-30 SHINGLES VACCINES ([address] [facility] - Test 00:00:00 of 2) [code = SHINGLES Medic al Center VACCINES (1 of 2)] Future Scheduled 1974-11-30 DTAP/TDAP/TD VACCINES [facility] - Test 00:00:00 (1 - Tdap) [code = Medical C enter DTAP/TDAP/TD VACCINES (1 - Tdap)] Future Scheduled 1973-11-30 HEPATITIS C SCREENING [facility] - Test 00:00:00 [code = HEPATITIS C Medical Center SCREENING] Future Scheduled 1965-11-30 DIABETIC EYE EXAM [facility] - Test 00:00:00 [code = DIABETIC EYE Medical Center EXAM] Future Scheduled 1965-11-[address] [facility] - Test 00:00:00 examination Medical Center (regime/therapy) [code = 709318036] Future Scheduled 1965-11-30 Urine screening [facility] - Test 00:00:00 protein (procedure) Medical Center [code = 532783686] Future Scheduled [address] - Test 00:00:00 malignant neoplasm of Medica l Center colon (procedure) [code = 125917073] Encounters Start End Encounter Admission Attending Care Care Encounter Source Date/Time Date/Time Type Type Clinicians Facility Department ID 2020-07-09 2020-07-09 Laboratory Lab, [facility] 1..[id number] 14:56:09 15:16:09 Only Fam P[facility] [id number] [place] [id number] Professio [phone] [place] [address] [address] 2020-06-22 2020-06-22 Laboratory Lab, [facility] 1..[id number] 18:01:48 18:21:48 Only Fam Pob I Health [id number] [place] [id number] Professio [phone] [place] [address] [address] 2020-05-31 2020-05-31 Laboratory Lab, [facility] 1..[id number] 15:19:07 15:46:53 Only Fam Pob I Health [id number] [place] [id number] Professio [phone] [place] [address] [address] 2020-05-17 2020-05-17 Laboratory Lab, [facility] [id number] 14:48:04 15:08:04 Only Fam Pob I Health [id number] [place] [id number] Sandra [phone] [place] [address] Results Test Description Test Time Test Comments Results Result Comments Source BLOOD CULTURE 2021-01-20 11:07:00 Test Item Value Reference Range Interpretation Comme nts CULTURE (BEAKER) (test A From Aerobic Bottle Only code = 1095) Micrococcus lut eusof a fourth type GRAM STAIN RESULT (BEAKER) From aerobic bottle only: (test code = 1123) gram positive cocci in clusters Blood Culture # 16:01:00 Test Item Value Reference Range Interpretation Comments Result (test code = No growth in 5 days 6463-4) [facility] [id number] 16:01:00 Test Item Value Reference Range Interpretation Comments CULTURE (BEAKER) (test No growth in 5 days code = 1095) POC-Glucose [id number] 12:19:00 Test Item Value Reference Range Interpretation Comments POC-Glucose Meter (test 207 mg/dL 70-110 H : TE STED AT [facility] code = 1538) [address] [facility], 770 30: Helmet Hat Puncher/Techni bushra ID = [id number] for STEFAN MAKI Lab Interpretation (test Abnormal code = 02411-2) [facility] [id number] 12:19:00 Test Item Value Reference Range Interpretation Comments POC-GLUCOSE METER 207 mg/dL 70-110 H : TESTED A T [facility] 6720 (BEAKER) (test code = [facility], 1538) [address]: Helmet Hat Puncher/Techni bushra ID = [id number] for STEFAN FUENTES WOUND CULTURE + GRAM [id number] 09:50:00 Test Item Value Reference Range Interpretation Comments CULTURE (BEAKER) A 1+ Enteroba cter (test code = cloacae 1095) GRAM STAIN <1+ WBCs RESULT (BEAKER) (test code = 1123) GRAM STAIN 1+ gram positive RESULT (BEAKER) cocci in clusters (test code = 164077) 3+ Skin floraPOCT-GLUCOSE [id number] 08:28:00 Test Item Value Reference Range Interpretation Comments POC-GLUCOSE METER 142 mg/dL 70-110 H : TESTED A T [facility] 6720 (BEAKER) (test code = GREG Khan [facility], 1538) [address]: Helmet Hat Puncher/Techni bushra ID = [id number] for STEFAN FUENTES Basic Metabolic [id number] 06:42:00 Test Item Value Reference Range Interpretation Comments Sodium (test code = 137 meq/L 667-333 1208-2) Potassium (test code = 3.8 meq/L 3.5-5.1 2823-3) Chloride (test code = 103 meq/L 98-107 2075-0) CO2 (test code = 24 meq/L 22-29 2028-9) BUN (test code = 13 mg/dL 7-21 3094-0) Creatinine (test code 0.90 mg/dL 0.57-1.25 = 2160-0) Glucose (test code = 160 mg/dL 70-105 H 2345-7) Calcium (test code = 8.6 mg/dL 8.4-10.2 57489-6) EGFR (test code = 85 mL/min/1.73 [place] [address]-0) NOT ACCURATE CREATININE CLEARANCE IN PREDICTING GLOMERULAR FILTRATION RATE . ESTIMATED GFR I S NOT APPLICABLE FOR DIALYSIS PATIENTS. SUMEET (test code = SUMEET) Helmet Hat Puncher ID - [id number] Lab Interpretation Abnormal (test code = 73788-1) [facility] METABOLIC [id number] 06:42:00 Test Item Value Reference Range Interpretation Comments SODIUM (BEAKER) 137 meq/L 136-145 (test code = 381) POTASSIUM (BEAKER) 3.8 meq/L 3.5-5.1 (test code = 379) CHLORIDE (BEAKER) 103 meq/L 98-107 (test code = 382) CO2 (BEAKER) (test 24 meq/L 22-29 code = 355) BLOOD UREA NITROGEN 13 mg/dL 7-21 (BEAKER) (test code = 354) CREATININE (BEAKER) 0.90 mg/dL 0.57-1.25 (test code = 358) GLUCOSE RANDOM 160 mg/dL 70-105 H (BEAKER) (test code = 652) CALCIUM (BEAKER) 8.6 mg/dL 8.4-10.2 (test code = 697) EGFR (BEAKER) (test 85 mL/min/1.73 ESTIMA STEPHANY GFR IS code = 1092) sq m NOT ACCURATE CREATININE CLEARANCE IN PREDICTING GLOMERULAR FILTRATION RATE . ESTIMATED GFR I S NOT APPLICABLE FOR DIALYSIS PATIEN TS. Helmet Hat Puncher ID - [id number] (Hemogram only)2021-01-18 06:11:00 Test Item Value Reference Range Interpretation Comments WBC (test code = 6690-2) 7.7 See_Comment [A utomated message] The system [employer] generated this result transmitted ref erence range: 3.5 - 10 .5 K/L. The refe rence range was not u sed to interpret this result as normal/abnor mal. RBC (test code = 789-8) 4.65 See_Comment [Au tomated message] The system [employer] generated this result transmitted ref erence range: 4.63 - 6 .08 M/L. The refe rence range was not u sed to interpret this result as normal/abnor mal. MCHC (test code = 786-4) 33.0 See_Comment L [A utomated message] The system [employer] generated this result transmitted ref erence range: 32.3 - 3 6.5 GM/DL. The refe rence range was not u sed to interpret this result as normal/abnor mal. Hematocrit (test code = 40.6 % 40.1-51 4544-3) MCV (test code = 787-2) 87.3 fL 79-92.2 MCH (test code = 785-6) 28.8 pg 25.7-32.2 RDW (test code = 788-0) 13.2 % 11.6-14.4 Platelets (test code = 161 See_Comment [Aut omated message] 777-3) The system [employer] generated this result transmitted ref erence range: 150 - 45 0 K/CU MM. The referen ce range was not u sed to interpret this result as normal/abnor mal. MPV (test code = 8.6 fL 9.4-12.4 L 50641-9) nRBC (test code = 413) 0 See_Comment [Aut omated message] The system [employer] generated this result transmitted ref erence range: 0 - 0 /1 00 WBC. The refere nce range was not u sed to interpret this result as normal/abnor mal. Lab Interpretation (test Abnormal code = 25189-2) [facility] (HEMOGRAM ONLY)2021-01-18 06:11:00 Test Item Value Reference Range Interpretation Comments WHITE BLOOD CELL COUNT (BEAKER) 7.7 K/ L 3.5-10.5 (test code = 775) RED BLOOD CELL COUNT (BEAKER) 4.65 M/ L 4.63-6.08 (test code = 761) HEMOGLOBIN (BEAKER) (test code = 13.4 GM/DL 13.7-17.5 L 410) HEMATOCRIT (BEAKER) (test code = 40.6 % 40.1-51.0 411) MEAN CORPUSCULAR VOLUME (BEAKER) 87.3 fL 79.0-92.2 (test code = 753) MEAN CORPUSCULAR HEMOGLOBIN 28.8 pg 25.7-32.2 (BEAKER) (test code = 751) MEAN CORPUSCULAR HEMOGLOBIN CONC 33.0 GM/DL 32.3-36.5 (BEAKER) (test code = 752) RED CELL DISTRIBUTION WIDTH 13.2 % 11.6-14.4 (BEAKER) (test code = 412) PLATELET COUNT (BEAKER) (test 161 K/CU MM 150-450 code = 756) MEAN PLATELET VOLUME (BEAKER) 8.6 fL 9.4-12.4 L (test code = 754) NUCLEATED RED BLOOD CELLS 0 /100 WBC 0-0 (BEAKER) (test code = 413) POCT-GLUCOSE [id number] 20:51:00 Test Item Value Reference Range Interpretation Comments POC-GLUCOSE METER 227 mg/dL 70-110 H : TESTED A T [facility] 6720 (BEAKER) (test code = [facility], 153) [address]: Helmet Hat Puncher/Techni bushra ID = [id number] for MARY COX POCT-GLUCOSE [id number] 16:48:00 Test Item Value Reference Range Interpretation Comments POC-GLUCOSE METER 207 mg/dL 70-110 H : TESTED A T [facility] 6720 (BEAKER) (test code = [facility], 153) 14697: Helmet Hat Puncher/Techni bushra ID = [id number] for QUEEN GARCIA POCT-GLUCOSE [id number] 11:24:00 Test Item Value Reference Range Interpretation Comments POC-GLUCOSE METER 210 mg/dL 70-110 H : TESTED A T [facility] 6720 (BEAKER) (test code = [facility] Erin [facility], 1538) [address]: Helmet Hat Puncher/Techni bushra ID = [id number] for QUEEN GARCIA POCT-GLUCOSE [id number] 07:15:00 Test Item Value Reference Range Interpretation Comments POC-GLUCOSE METER 189 mg/dL 70-110 H : TESTED A T [facility] 6720 (BEAKER) (test code = [facility] Erin [facility], 1538) [address]: Helmet Hat Puncher/Techni bushra ID = [id number] for QUEEN GARCIA BASIC METABOLIC [id number] 06:49:00 Test Item Value Reference Range Interpretation Comments SODIUM (BEAKER) 136 meq/L 136-145 (test code = 381) POTASSIUM (BEAKER) 3.7 meq/L 3.5-5.1 (test code = 379) CHLORIDE (BEAKER) 106 meq/L 98-107 (test code = 382) CO2 (BEAKER) (test 22 meq/L 22-29 code = 355) BLOOD UREA NITROGEN 15 mg/dL 7-21 (BEAKER) (test code = 354) CREATININE (BEAKER) 0.92 mg/dL 0.57-1.25 (test code = 358) GLUCOSE RANDOM 202 mg/dL 70-105 H (BEAKER) (test code = 652) CALCIUM (BEAKER) 8.8 mg/dL 8.4-10.2 (test code = 697) EGFR (BEAKER) (test 83 mL/min/1.73 ESTIMA STEPHANY GFR IS code = 1092) sq m NOT ACCURATE CREATININE CLEARANCE IN PREDICTING GLOMERULAR FILTRATION RATE . ESTIMATED GFR I S NOT APPLICABLE FOR DIALYSIS PATIEN TS. Helmet Hat Puncher ID - SANIA [facility] (HEMOGRAM ONLY)2021-01-17 06:04:00 Test Item Value Reference Range Interpretation Comments WHITE BLOOD CELL COUNT (BEAKER) 6.9 K/ L 3.5-10.5 (test code = 775) RED BLOOD CELL COUNT (BEAKER) 4.60 M/ L 4.63-6.08 L (test code = 761) HEMOGLOBIN (BEAKER) (test code = 13.0 GM/DL 13.7-17.5 L 410) HEMATOCRIT (BEAKER) (test code = 40.0 % 40.1-51.0 L 411) MEAN CORPUSCULAR VOLUME (BEAKER) 87.0 fL 79.0-92.2 (test code = 753) MEAN CORPUSCULAR HEMOGLOBIN 28.3 pg 25.7-32.2 (BEAKER) (test code = 751) MEAN CORPUSCULAR HEMOGLOBIN CONC 32.5 GM/DL 32.3-36.5 (BEAKER) (test code = 752) RED CELL DISTRIBUTION WIDTH 13.3 % 11.6-14.4 (BEAKER) (test code = 412) PLATELET COUNT (BEAKER) (test 141 K/CU MM 150-450 L code = 756) MEAN PLATELET VOLUME (BEAKER) 8.5 fL 9.4-12.4 L (test code = 754) NUCLEATED RED BLOOD CELLS 0 /100 WBC 0-0 (BEAKER) (test code = 413) POCT-GLUCOSE [id number] 20:30:00 Test Item Value Reference Range Interpretation Comments POC-GLUCOSE METER 223 mg/dL 70-110 H : Notified RN/MD: ([facility]) (test code = TESTED AT [facility] 6720 1538) RADHA [facility], [address]: Helmet Hat Puncher/Techni bushra ID = [id number] for MARY COX POCT-GLUCOSE [id number] 16:56:00 Test Item Value Reference Range Interpretation Comments POC-GLUCOSE METER 234 mg/dL 70-110 H : TESTED A T [facility] 6720 ([facility]) (test code = [facility] Khan [facility], 1538) [address]: Helmet Hat Puncher/Techni bushra ID = [id number] for DION RAHUL WALKER CT, EXTREMITY, LOWER WITHOUT CONTRAST, [id number] 16:40:00Unlisted Reason for Exam - Click Yes and Enter Reason Below->No [facility] : 1955 Sex: MFINAL REPORT CT of the left leg without contrast History: Abscess, bursa Comparisons: No priors Technique: CT of the left leg was performed without contrast. Axial images were generated as were multiplanar reformatted images in the coronal and sagittal planes. This exam was performed according to our departmental dose optimization program which includes automated exposure control, adjustment of the mA and/or kV according to patient's size and/or use of iterative reconstructive technique. Findings: Patient is status post left total knee arthroplasty. The femoral stem is fixed with cement. No evidence of hardware related complications. Allowing for limitations related to hardware streak artifact, no acute fracture, or dislocation is identified. There is no evidence of bony erosion, or bony destructive change. No significant joint effusion is identified at the left knee, or ankle. There is a soft tissue defect at the anteromedial aspect of the proximal left leg, measuring approximately 1.7 x 1.2 x 0.4 cm. An adjacent tiny radiopaque density in the subcutaneous region may represent a foreign body. Prominent subcutaneous edema is noted throughout the left leg, extending to the ankle, but no discrete drainable collection in size and five on this noncontrast exam.There is no soft tissue gas. No deep fascial thickening or fluid is identified. No bursitis is seen.IMPRESSION: Soft tissue defect in the anteromedial aspect of the proximal left leg. There is diffusesubcutaneous edema. No drainable collection is identified. Signed: Juvencio Olea MDReport Verified Date/Time: 01/16/2021 16:40:44 Reading Location: [facility] Radiology Reading Room CT lower extremity without IV contrast [id number] 16:40:00Interface, External Ris In - 01/16/2021 4:[address] of the left leg without contrast History: Abscess, bursa Comparisons: No priors Technique: CT of the left leg was performed without contrast. Axial images were generated as were multiplanar reformatted images in the coronal and sagittal planes. This exam was performed according to our departmental dose optimization program which includes automated exposure control, adjustment of the mA and/or kV according topatient's size and/or use of iterative reconstructive technique. Findings: Patient is status post left total knee arthroplasty. The femoral stem is fixed with cement. No evidence of hardware related complications. Allowing for limitations related to hardware streak artifact, no acute fracture, or dislocation is identified. There is no evidence of bony erosion, or bony destructive change. No significant joint effusion is identified at the left knee, or ankle. There is a soft tissue defect at the anteromedial aspect of the proximal left leg, measuring approximately 1.7 x 1.2 x 0.4 cm. An adjacent tiny radiopaque density in the subcutaneous region may represent a foreign body. Prominent subcutaneous edema is noted throughout the left leg, extending to the ankle, but no discrete drainable collection in size and five on this noncontrast exam. There is no soft tissue gas. No deep fascial thickening orfluid is identified. No bursitis is seen. IMPRESSION: Soft tissue defect in the anteromedial aspect of the proximal left leg. There is diffuse subcutaneous edema. No drainable collection is identified.Signed: Juvencio Olea Verified Date/Time: 01/16/2021 16:40:44 Reading Location: [facility] Radiology Reading [facility] [id number] 10:32:00 Test Item Value Reference Range Interpretation Comments POC-GLUCOSE METER 306 mg/dL 70-110 H : TESTED A T [facility] 6720 (BEAKER) (test code = GREG Khan [place], 1538) [address]: Helmet Hat Puncher/Techni bushra ID = [id number] for QUEEN GARCIA Hemoglobin [id number] 08:22:00 Test Item Value Reference Range Interpretation Comments Hemoglobin A1C (test code = 4548-4) 12.5 % 4.3-6.1 H Lab Interpretation (test code = Abnormal 33819-0) [facility] [id number] 08:22:00 Test Item Value Reference Range Interpretation Comments HEMOGLOBIN A1C (BEAKER) (test code = 12.5 % 4.3-6.1 H 368) POCT-GLUCOSE [id number] 07:42:00 Test Item Value Reference Range Interpretation Comments POC-GLUCOSE METER 272 mg/dL 70-110 H : TESTED A T [facility] 6720 (BEAKER) (test code = GREG [place], 1538) [address]: Helmet Hat Puncher/Techni bushra ID = [id number] for QUEEN GARCIA BASIC METABOLIC [id number] 05:33:00 Test Item Value Reference Range Interpretation Comments SODIUM (BEAKER) 137 meq/L 136-145 (test code = 381) POTASSIUM (BEAKER) 3.8 meq/L 3.5-5.1 (test code = 379) CHLORIDE (BEAKER) 107 meq/L 98-107 (test code = 382) CO2 (BEAKER) (test 21 meq/L 22-29 L code = 355) BLOOD UREA NITROGEN 17 mg/dL 7-21 (BEAKER) (test code = 354) CREATININE (BEAKER) 1.17 mg/dL 0.57-1.25 (test code = 358) GLUCOSE RANDOM 335 mg/dL 70-105 H (BEAKER) (test code = 652) CALCIUM (BEAKER) 8.3 mg/dL 8.4-10.2 L (test code = 697) EGFR (BEAKER) (test 63 mL/min/1.73 ESTIMA STEPHANY GFR IS code = 1092) sq m NOT ACCURATE CREATININE CLEARANCE IN PREDICTING GLOMERULAR FILTRATION RATE . ESTIMATED GFR I S NOT APPLICABLE FOR DIALYSIS PATIEN TS. Helmet Hat Puncher ID - MALIK [facility] (HEMOGRAM ONLY)2021-01-16 05:05:00 Test Item Value Reference Range Interpretation Comments WHITE BLOOD CELL COUNT (BEAKER) 7.7 K/ L 3.5-10.5 (test code = 775) RED BLOOD CELL COUNT (BEAKER) 4.38 M/ L 4.63-6.08 L (test code = 761) HEMOGLOBIN (BEAKER) (test code = 12.7 GM/DL 13.7-17.5 L 410) HEMATOCRIT (BEAKER) (test code = 39.0 % 40.1-51.0 L 411) MEAN CORPUSCULAR VOLUME (BEAKER) 89.0 fL 79.0-92.2 (test code = 753) MEAN CORPUSCULAR HEMOGLOBIN 29.0 pg 25.7-32.2 (BEAKER) (test code = 751) MEAN CORPUSCULAR HEMOGLOBIN CONC 32.6 GM/DL 32.3-36.5 (BEAKER) (test code = 752) RED CELL DISTRIBUTION WIDTH 13.2 % 11.6-14.4 (BEAKER) (test code = 412) PLATELET COUNT (BEAKER) (test 125 K/CU MM 150-450 L code = 756) MEAN PLATELET VOLUME (BEAKER) 8.3 fL 9.4-12.4 L (test code = 754) NUCLEATED RED BLOOD CELLS 0 /100 WBC 0-0 (BEAKER) (test code = 413) Blood Culture Panel([employer])2021-01-15 22:17:00 Test Item Value Reference Range Interpretation Comments LISTERIA MONOCYTOGENES Not detected Not detected (test code = 44725-6) STAPHYLOCOCCUS (test code Not detected Not detected = 28259-2) STAPHYLOCOCCUS AUREUS Not detected Not detected (test code = 73627-7) Streptococcus (test code = Not detected Not detected 52369-9) STREPTOCOCCUS AGALACTIAE Not detected Not detected (GROUP B) (test code = 99044-1) STREPTOCOCCUS PNEUMONIAE Not detected Not detected (test code = 55160-2) Streptococcus pyogenes Not detected Not detected (Group A) (test code = 11859-7) ACINETOBACTER BAUMANNII Not detected Not detected (test code = 22469-8) HAEMOPHILUS INFLUENZAE Not detected Not detected (test code = 24507-2) NEISSERIA MENINGITIDIS Not detected Not detected (test code = 18272-6) ENTEROBACTERIACEAE (test Not detected Not detected code = 09073-7) ENTEROBACTER CLOACOE Not detected Not detected COMPLEX (test code = 49324-1) KLEBSIELLA OXYTOCA (test Not detected Not detected code = 28824-7) KLEBSIELLA PNEUMONIAE Not detected Not detected (test code = 32150-6) PROTEUS (test code = Not detected Not detected 61562-6) SERRATIA MARCESCENS (test Not detected Not detected code = 22797-8) KATI ALBICANS (test Not detected Not detected code = 34857-2) KATI GLABRATA (test Not detected Not detected code = 07974-1) KATI KRUSEI (test code Not detected Not detected = 91129-4) KATI PARAPSILOSIS (test Not detected Not detected code = 45268-0) KATI TROPICALIS (test Not detected Not detected code = 99952-7) ESCHERICHIA COLI (test Not detected Not detected code = 80922-1) METHICILLIN-RESISTANCE GENE (test code = 74040-9) VANCOMYCIN-RESISTANCE GENE (test code = 99270-8) CARBAPENEM-RESISTANCE GENE (test code = 76358-4) ENTEROCOCCUS (test code = Not detected Not detected 05898-2) PSEUDOMONAS AERUGINOSA Not detected Not detected (test code = 52040-8) SUMEET (test code = SUMEET) Other bacteria and resistance markers not targeted by this PCR panel cannot be excluded; therefore clinical correlation and follow up of serology, culture results, and other molecular studies is required. The results are not intended to be used as the sole means for clinical diagnosis or patient management decisions. This sample was tested at the [facility] Molecular Diagnostics Laboratory using the Integrated [employer] Blood Culture ID Panel. It is FDA cleared and has been verified and approved by the [facility] Molecular Diagnostics Laboratory for clinical use. This laboratory is CLIA-certified and [employer] [place] [employer] (CAP)-accredited to perform high complexity testing. [facility] ID[facility] [id number] 22:17:00 Test Item Value Reference Range Interpretation Comments LISTERIA MONOCYTOGENES (test Not detected Not detected code = 20160512) STAPHYLOCOCCUS (test code = Not detected Not detected 3837610) STAPHYLOCOCCUS AUREUS (test code Not detected Not detected = 6756323) STREPTOCOCCUS (test code = Not detected Not detected 6185416) STREPTOCOCCUS AGALACTIAE (GROUP Not detected Not detected B) (test code = 1602881) STREPTOCOCCUS PNEUMONIAE (test Not detected Not detected code = 0803817) STREPTOCOCCUS PYOGENES (GROUP A) Not detected Not detected (test code = 0232547) ACINETOBACTER BAUMANNII (test Not detected Not detected code = 3645590) HAEMOPHILUS INFLUENZAE (test Not detected Not detected code = 5422316) NEISSERIA MENINGITIDIS (test Not detected Not detected code = 4719865) ENTEROBACTERIACEAE (test code = Not detected Not detected 9892253) ENTEROBACTER CLOACOE COMPLEX Not detected Not detected (test code = 1244508) KLEBSIELLA OXYTOCA (test code = Not detected Not detected 3451435) KLEBSIELLA PNEUMONIAE (test code Not detected Not detected = 1650) PROTEUS (test code = 8374104) Not detected Not detected SERRATIA MARCESCENS (test code = Not detected Not detected ) KATI ALBICANS (test code = Not detected Not detected ) KATI GLABRATA (test code = Not detected Not detected ) KATI KRUSEI (test code = Not detected Not detected ) KATI PARAPSILOSIS (test code Not detected Not detected = ) KATI TROPICALIS (test code = Not detected Not detected ) ESCHERICHIA COLI (test code = Not detected Not detected ) METHICILLIN-RESISTANCE GENE (test code = 1937847) VANCOMYCIN-RESISTANCE GENE (test code = 6277604) CARBAPENEM-RESISTANCE GENE (test code = 9413231) ENTEROCOCCUS-BEAKER (test code = Not detected Not detected 0179670) PSEUDOMONAS AERUGINOSA-BEAKER Not detected Not detected (test code = ) Other bacteria and resistance markers not targeted by this PCR panel cannot be excluded; therefore clinical correlation and follow up of serology, culture results, and other molecular studies is required. The results are not intended to be used as the sole means for clinical diagnosis or patient management decisions. This sample was tested at the [facility] Molecular Diagnostics Laboratory using the Integrated Diagnostics Blood Culture ID Panel. It is FDA cleared and has been verified and approved by the [facility] Molecular Diagnostics Laboratory for clinical use. This laboratory is CLIA-certified and College ofAmerican Pathologists (CAP)-accredited to perform high complexity testing.POCT-GLUCOSE [id number] 21:06:00 Test Item Value Reference Range Interpretation Comments POC-GLUCOSE METER 248 mg/dL 70-110 H : TESTED A T [facility] 6720 (Offsite Care ResourcesAKER) (test code = GREG Khan [facility], 1538) [address]: Helmet Hat Puncher/Techni bushra ID = [id number] for VONDA PARADA POCT-GLUCOSE [id number] 17:10:00 Test Item Value Reference Range Interpretation Comments POC-GLUCOSE METER 185 mg/dL 70-110 H : TESTED A T [facility] 6720 (BEAKER) (test code = [facility] Erin [facility], 1538) [address]: Helmet Hat Puncher/Techni bushra ID = [id number] for STEFAN FUENTES POCT-GLUCOSE [id number] 12:46:00 Test Item Value Reference Range Interpretation Comments POC-GLUCOSE METER 247 mg/dL 70-110 H : TESTED A T [facility] 6720 (BEAKER) (test code = GREG Khan [place], 1538) [address]: Helmet Hat Puncher/Techni bushra ID = [id number] for STEFAN FUENTES POCT-GLUCOSE [id number] 08:15:00 Test Item Value Reference Range Interpretation Comments POC-GLUCOSE METER 230 mg/dL 70-110 H : TESTED A T [facility] 6720 (PATRICIA) (test code = GREG [place], 1538) [address]: Helmet Hat Puncher/Techni bushra ID = [id number] for STEFAN FUENTES Venous doppler leg, [id number] 07:35:05Ejection FractionSLEH ECHO HEARTLAB MKCKESSON CPACS Left Impression1. There is no deep venous obstruction in the common femoral, profundafemoral, femoral, popliteal, posterior tibial or peroneal veins wherevisualized.2. The great saphenous vein has been harvested. Conclusions Summary Venous duplex imaging and compression of the left lower extremity were performed. The veins were technically difficult to visualize due to edema and patient body habitus. The left venous system was patent and compressible with no evidence of thrombus where visualized. The venous Doppler waveforms were phasic with respiration. *Results same as exam 01/10/2021. Signature Velocities are measured in cm/s ; Diameters are measured in cm Interface, External Ris In - 01/15/2021 7:35 AM CDTPV LAB - Lower Extremities DVT Study Demographics Patient Name AGUEDA COOK Date of Study 01/15/2021 AMBER Age 65 Visit Number [id number] Gender Male Accession Number [id number] Date of 1955 Referring Carmella Eller, Room Number 939 Physician MDSonographer Dickson Campuzano Interpreting Vicky Oates, Physician ProcedureType of Study: Veins: Lower Extremities DVT Study, VENOUS DOPPLER LEG, LEFT. Indications for Study:Evaluate for DVT.Patient Status:Routine.Study Location:Portable.Technical Quality:Technically Difficult.Risk FactorsHistory of Disease+ +----+-------- +!Diagnosis !Date!Comments !+ +----+ +!Hi story/Risk ! !S/P Debridement/I&D wound left lower extremity !!Factors: ! !12/31/2020, Left leg mass removal, Morbid obesity, CAD,!! ! !S/P ACB , GSV harvested 12/29/2019 !+ +----+ +ImpressionsLeft Impression1. There is no deep venous obstruction in the common femoral, profundafemoral, femoral, popliteal, posterior tibial or peroneal veins wherevisualized.2. The great saphenous vein has been harvested. Conclusions Summary Venous duplex imaging and compression of the left lower extremity were performed. The veins were technically difficult to visualize due to edema and patient body habitus. The left venous system was patent and compressible with no evidence of thrombus wherevisualized. The venous Doppler waveforms were phasic with respiration. *Results same as exam 01/10/2021. Signature Velocities are measured in cm/s ; Diameters are measured in [facility] BASIC METABOLIC [id number] 05:51:00 Test Item Value Reference Range Interpretation Comments SODIUM (BEAKER) 136 meq/L 136-145 (test code = 381) POTASSIUM (BEAKER) 3.8 meq/L 3.5-5.1 (test code = 379) CHLORIDE (BEAKER) 105 meq/L 98-107 (test code = 382) CO2 (BEAKER) (test 22 meq/L 22-29 code = 355) BLOOD UREA NITROGEN 20 mg/dL 7-21 (BEAKER) (test code = 354) CREATININE (BEAKER) 1.37 mg/dL 0.57-1.25 H (test code = 358) GLUCOSE RANDOM 273 mg/dL 70-105 H (BEAKER) (test code = 652) CALCIUM (BEAKER) 8.7 mg/dL 8.4-10.2 (test code = 697) EGFR (BEAKER) (test 52 mL/min/1.73 ESTIMA STEPHANY GFR IS code = 1092) sq m NOT ACCURATE CREATININE CLEARANCE IN PREDICTING GLOMERULAR FILTRATION RATE . ESTIMATED GFR I S NOT APPLICABLE FOR DIALYSIS PATIEN TS. Helmet Hat Puncher ID - SANIA [facility] (HEMOGRAM ONLY)2021-01-15 05:34:00 Test Item Value Reference Range Interpretation Comments WHITE BLOOD CELL COUNT (BEAKER) 12.5 K/ L 3.5-10.5 H (test code = 775) RED BLOOD CELL COUNT (BEAKER) 4.73 M/ L 4.63-6.08 (test code = 761) HEMOGLOBIN (BEAKER) (test code = 13.7 GM/DL 13.7-17.5 410) HEMATOCRIT (BEAKER) (test code = 42.2 % 40.1-51.0 411) MEAN CORPUSCULAR VOLUME (BEAKER) 89.2 fL 79.0-92.2 (test code = 753) MEAN CORPUSCULAR HEMOGLOBIN 29.0 pg 25.7-32.2 (BEAKER) (test code = 751) MEAN CORPUSCULAR HEMOGLOBIN CONC 32.5 GM/DL 32.3-36.5 (BEAKER) (test code = 752) RED CELL DISTRIBUTION WIDTH 13.3 % 11.6-14.4 (BEAKER) (test code = 412) PLATELET COUNT (BEAKER) (test 135 K/CU MM 150-450 L code = 756) MEAN PLATELET VOLUME (BEAKER) 9.0 fL 9.4-12.4 L (test code = 754) NUCLEATED RED BLOOD CELLS 0 /100 WBC 0-0 (BEAKER) (test code = 413) Lactic acid, [id number] 00:23:00 Test Item Value Reference Range Interpretation Comments Lactate, Venous (test code = 1.42 mmol/L 0.5-2.2 2871) SUMEET (test code = SUMEET) Helmet Hat Puncher ID - DB Lab Interpretation (test Normal code = 99889-4) [facility], [id number] 00:23:00 Test Item Value Reference Range Interpretation Comments LACTATE BLOOD VENOUS (2) (BEAKER) 1.42 mmol/L 0.50-2.20 (test code = 2872) Helmet Hat Puncher ID - DBPOCT-GLUCOSE [id number] 21:18:00 Test Item Value Reference Range Interpretation Comments POC-GLUCOSE METER 351 mg/dL 70-110 H : TESTED A T [facility] 6720 (BEAKER) (test code = GREG [place], 1538) [address]: Helmet Hat Puncher/Techni bushra ID = [id number] for QU ALMA (V)ELDA POCT-GLUCOSE [id number] 18:45:00 Test Item Value Reference Range Interpretation Comments POC-GLUCOSE METER 297 mg/dL 70-110 H : TESTED A T [facility] 6720 (BEAKER) (test code = GREG Khan [place], 1538) [address]: Helmet Hat Puncher/Techni bushra ID = [id number] for STEFAN FUENTES POCT-GLUCOSE [id number] 18:13:00 Test Item Value Reference Range Interpretation Comments POC-GLUCOSE METER 300 mg/dL 70-110 H : TESTED A T [facility] 6720 (BEAKER) (test code = GREG Khan [place], 1538) [address]: Helmet Hat Puncher/Techni bushra ID = [id number] for CHIQUIS NICKERSON LACTIC ACID, [id number] 17:13:00 Test Item Value Reference Range Interpretation Comments LACTATE BLOOD VENOUS 2.48 mmol/L 0.50-2.20 H Specime n slightly (2) (BEAKER) (test hemolyzed code = 2872) Helmet Hat Puncher ID - DBKetones, [id number] 16:08:00 Test Item Value Reference Range Interpretation Comments Ketones, Blood (test code = 1103) 0.2 mmol/L <0.4 Lab Interpretation (test code = Normal 23435-8) [facility], [id number] 16:08:00 Test Item Value Reference Range Interpretation Comments KETONES, BLOOD (BEAKER) (test code 0.2 mmol/L <0.4 = 1103) Comprehensive metabolic [id number] 15:56:00 Test Item Value Reference Range Interpretation Comments Protein, Total (test 6.8 See_Comment [Autom ated code = 2885-2) message] The system which generated this result transmit stephany reference range : 6.0 - 8.3 gm/dL . The reference range was not u sed to interpret th is result as normal/abnormal . Albumin (test code = 3.4 g/dL 3.5-5 L 41246-3) Alkaline Phosphatase 53 U/L 40-150 (test code = 6768-6) Total Bilirubin (test 0.6 mg/dL 0.2-1.2 code = 1975-2) Sodium (test code = 136 meq/L 789-522 4590-2) Potassium (test code 4.2 meq/L 3.5-5.1 = 2823-3) Chloride (test code = 103 meq/L 98-107 2075-0) CO2 (test code = 23 meq/L 22-29 8-9) BUN (test code = 18 mg/dL 7-21 3094-0) Creatinine (test code 1.61 mg/dL 0.57-1.25 H = 2160-0) Glucose (test code = 459 mg/dL 70-105 HH 2345-7) Calcium (test code = 9.3 mg/dL 8.4-10.2 60879-7) AST (test code = 22 U/L 5-34 1920-8) ALT (test code = 26 U/L 6-55 1742-6) EGFR (test code = 43 mL/min/1.73 [place] [address]-2) NOT ACCURATE CREATININE CLEARANCE IN PREDICTING GLOMERULAR FILTRATION RATE . ESTIMATED GFR I S NOT APPLICABLE FOR DIALYSIS PATIEN TS. FAY (test code = SUMEET) Helmet Hat Puncher ID - DB Lab Interpretation Abnormal (test code = 53892-2) [facility]PRE[facility] METABOL[facility] [id number] 15:56:00 Test Item Value Reference Range Interpretation Comments TOTAL PROTEIN 6.8 gm/dL 6.0-8.3 (BEAKER) (test code = 770) ALBUMIN (BEAKER) 3.4 g/dL 3.5-5.0 L (test code = 1145) ALKALINE PHOSPHATASE 53 U/L 40-150 (BEAKER) (test code = 346) BILIRUBIN TOTAL 0.6 mg/dL 0.2-1.2 (BEAKER) (test code = 377) SODIUM (BEAKER) (test 136 meq/L 136-145 code = 381) POTASSIUM (BEAKER) 4.2 meq/L 3.5-5.1 (test code = 379) CHLORIDE (BEAKER) 103 meq/L 98-107 (test code = 382) CO2 (BEAKER) (test 23 meq/L 22-29 code = 355) BLOOD UREA NITROGEN 18 mg/dL 7-21 (BEAKER) (test code = 354) CREATININE (BEAKER) 1.61 mg/dL 0.57-1.25 H (test code = 358) GLUCOSE RANDOM 459 mg/dL 70-105 HH (BEAKER) (test code = 652) CALCIUM (BEAKER) 9.3 mg/dL 8.4-10.2 (test code = 697) AST (SGOT) (BEAKER) 22 U/L 5-34 (test code = 353) ALT (SGPT) (BEAKER) 26 U/L 6-55 (test code = 347) EGFR (BEAKER) (test 43 mL/min/1.73 ESTIMA STEPHANY GFR IS code = 1092) sq m NOT ACCURATE CREATININE CLEARANCE IN PREDICTING GLOMERULAR FILTRATION RATE . ESTIMATED GFR I S NOT APPLICABLE FOR DIALYSIS PATIEN TS. Helmet Hat Puncher ID - DBCBC with platelet count + automated [id number] 15:46:00 Test Item Value Reference Range Interpretation Comments WBC (test code = 6690-2) 18.4 See_Comment H [A utomated message] The system [employer] generated this result transmitted ref erence range: 3.5 - 10 .5 K/L. The refe rence range was not u sed to interpret this result as normal/abnor mal. RBC (test code = 789-8) 5.11 See_Comment [Au tomated message] The system [employer] generated this result transmitted ref erence range: 4.63 - 6 .08 M/L. The refe rence range was not u sed to interpret this result as normal/abnor mal. MCHC (test code = 786-4) 32.1 See_Comment L [A utomated message] The system [employer] generated this result transmitted ref erence range: 32.3 - 3 6.5 GM/DL. The refe rence range was not u sed to interpret this result as normal/abnor mal. Hematocrit (test code = 45.5 % 40.1-51 4544-3) MCV (test code = 787-2) 89.0 fL 79-92.2 MCH (test code = 785-6) 28.6 pg 25.7-32.2 RDW (test code = 788-0) 13.3 % 11.6-14.4 Platelets (test code = 156 See_Comment [Aut omated message] 777-3) The system [employer] generated this result transmitted ref erence range: 150 - 45 0 K/CU MM. The referen ce range was not u sed to interpret this result as normal/abnor mal. MPV (test code = 8.6 fL 9.4-12.4 L 14845-8) nRBC (test code = 413) 0 See_Comment [Aut omated message] The system [employer] generated this result transmitted ref erence range: 0 - 0 /1 00 WBC. The refere nce range was not u sed to interpret this result as normal/abnor mal. % Neutros (test code = 90 % 429) % Lymphs (test code = 3 % 430) % Monos (test code = 6 % 431) % Eos (test code = 432) 0 % % Baso (test code = 437) 0 % # Neutros (test code = 16.48 See_Comment H [Aut omated message] 670) The system [employer] generated this result transmitted ref erence range: 1.78 - 5 .38 K/L. The refe rence range was not u sed to interpret this result as normal/abnor mal. # Lymphs (test code = 0.63 See_Comment L [Auto mated message] 414) The system [employer] generated this result transmitted ref erence range: 1.32 - 3 .57 K/L. The refe rence range was not u sed to interpret this result as normal/abnor mal. # Monos (test code = 1.12 See_Comment H [Autom ated message] 415) The system [employer] generated this result transmitted ref erence range: 0.30 - 0 .82 K/L. The refe rence range was not u sed to interpret this result as normal/abnor mal. # Eos (test code = 416) 0.00 See_Comment L [Au tomated message] The system [employer] generated this result transmitted ref erence range: 0.04 - 0 .54 K/L. The refe rence range was not u sed to interpret this result as normal/abnor mal. # Baso (test code = 417) 0.04 See_Comment [A utomated message] The system [employer] generated this result transmitted ref erence range: 0.01 - 0 .08 K/L. The refe rence range was not u sed to interpret this result as normal/abnor mal. Immature 1 % 0-1 Granulocytes-Relative (test code = 2801) Lab Interpretation (test Abnormal code = 12411-8) [facility] W/PLT COUNT & AUTO [id number] 15:46:00 Test Item Value Reference Range Interpretation Comments WHITE BLOOD CELL COUNT (BEAKER) 18.4 K/ L 3.5-10.5 H (test code = 775) RED BLOOD CELL COUNT (BEAKER) 5.11 M/ L 4.63-6.08 (test code = 761) HEMOGLOBIN (BEAKER) (test code = 14.6 GM/DL 13.7-17.5 410) HEMATOCRIT (BEAKER) (test code = 45.5 % 40.1-51.0 411) MEAN CORPUSCULAR VOLUME (BEAKER) 89.0 fL 79.0-92.2 (test code = 753) MEAN CORPUSCULAR HEMOGLOBIN 28.6 pg 25.7-32.2 (BEAKER) (test code = 751) MEAN CORPUSCULAR HEMOGLOBIN CONC 32.1 GM/DL 32.3-36.5 L (BEAKER) (test code = 752) RED CELL DISTRIBUTION WIDTH 13.3 % 11.6-14.4 (BEAKER) (test code = 412) PLATELET COUNT (BEAKER) (test 156 K/CU MM 150-450 code = 756) MEAN PLATELET VOLUME (BEAKER) 8.6 fL 9.4-12.4 L (test code = 754) NUCLEATED RED BLOOD CELLS 0 /100 WBC 0-0 (BEAKER) (test code = 413) NEUTROPHILS RELATIVE PERCENT 90 % (BEAKER) (test code = 429) LYMPHOCYTES RELATIVE PERCENT 3 % (BEAKER) (test code = 430) MONOCYTES RELATIVE PERCENT 6 % (BEAKER) (test code = 431) EOSINOPHILS RELATIVE PERCENT 0 % (BEAKER) (test code = 432) BASOPHILS RELATIVE PERCENT 0 % (BEAKER) (test code = 437) NEUTROPHILS ABSOLUTE COUNT 16.48 K/ L 1.78-5.38 H (BEAKER) (test code = 670) LYMPHOCYTES ABSOLUTE COUNT 0.63 K/ L 1.32-3.57 L (BEAKER) (test code = 414) MONOCYTES ABSOLUTE COUNT (BEAKER) 1.12 K/ L 0.30-0.82 H (test code = 415) EOSINOPHILS ABSOLUTE COUNT 0.00 K/ L 0.04-0.54 L (BEAKER) (test code = 416) BASOPHILS ABSOLUTE COUNT (BEAKER) 0.04 K/ L 0.01-0.08 (test code = 417) IMMATURE GRANULOCYTES-RELATIVE 1 % 0-1 PERCENT (BEAKER) (test code = 2801) [id number] 15:39:00 Test Item Value Reference Range Interpretation Comments PTT (test code = 07445-7) 31.5 See_Comment [ Automated message] The system [employer] generated this result transmitted ref erence range: 22.5 - 3 6.0 seconds. The re ference range was not u sed to interpret this result as normal/abnor mal. Lab Interpretation (test Normal code = 29565-7) [id number] 15:39[facility]00 Test Item Value Reference Range Interpretation Comments PARTIAL THROMBOPLASTIN TIME 31.5 seconds 22.5-36.0 (BEAKER) (test code = 760) Prothrombin time/[id number] 15:38:00 Test Item Value Reference Interpretation Comments Range Protime (test code = 15.1 See_Comment H [Autom ated 5902-2) message] The system which generated this result transmitted reference range : 11.9 - 14.2 seconds. The reference range was not used to interpret this result as normal/abnormal . INR (test code = 1.22 See_Comment [Automated 6301-6) message] The system which generated this result transmitted reference range : <=5.90. The reference range was not used to interpret this result as normal/abnormal . SUMEET (test code = RECOMMENDED SUMEET) COUMADIN/WARFARIN INR THERAPY RANGESSTANDARD DOSE: 2.0 - 3.0 Includes: PROPHYLAXIS for venous thrombosis, systemic embolization; TREATMENT for venous thrombosis and/or pulmonary embolus.HIGH RISK: Target INR is 2.5-3.5 for patients with mechanical heart valves. Lab Interpretation Abnormal (test code = 94372-7) [facility] Center[facility]HROMBIN TIME/[id number] 15:38:00 Test Item Value Reference Range Interpretation Comments PROTIME (BEAKER) 15.1 seconds 11.9-14.2 H (test code = 759) INR (BEAKER) (test 1.22 See_Comment [Automat ed message] code = 370) The system [employer] generated this result transmitted ref erence range: <=5.90. The reference range was not used to int erpret this result as normal/abnormal . RECOMMENDED COUMADIN/WARFARIN INR THERAPY RANGESSTANDARD DOSE: 2.0 - 3.0 Includes: PROPHYLAXIS forvenous thrombosis, systemic embolization; TREATMENT for venous thrombosis and/or pulmonary embolus.HIGH RISK: Target INR is 2.5-3.5 for patients with mechanical heart valves.LACTIC ACID, [id number] 15:36:00 Test Item Value Reference Range Interpretation Comments LACTATE BLOOD VENOUS 3.61 mmol/L 0.50-2.20 H Specime n slightly (2) (BEAKER) (test hemolyzed code = 2872) Helmet Hat Puncher ID - DBPOCT-GLUCOSE [id number] 15:31:00 Test Item Value Reference Range Interpretation Comments POC-GLUCOSE METER 414 mg/dL 70-110 HH : TESTED A T [facility] 6720 (PATRICIA) (test code = GREG [place], 1538) [address]: Helmet Hat Puncher/Techni bushra ID = [id number] for CHIQUIS NICKERSONHo Tissue [id number] 12:40:00 Test Item Value Reference Range Interpretation Comments Case Report (test code Surgical Pathology = 104) Report Case: [id number] Authorizing Provider: Rodri Sorto, Collected: 12/31/2020 08:19 AM Ordering Location: [facility] Received: 12/31/2020 09:18 AM PERIOPERATIVE SERVICES Pathologist: Freedom Chi MD Specimen: Seroma, LEFT LEG SEROMA DIAGNOSIS (test code = m3qfnAGpUAPth4ukVCLomON 3220) uZzEwMzNcZnRuYmpcdWMxIH tccnRmMVxlcGljOTIwMlxhb kFbFGQcxLTpX8RrewdoQFuc TC3mLO1omJtowJYxlHZkCAM kLtBqv4nhu975kPDpo7kbYW HOyxrbuXs6uMquB66kx0A3O telY24nzXFpIJhnzENgpuee ieMvWPLLZf4NCAhqZVKGZXI ESLueBCYJM2xYXX4UGyukVE WyE3uJTQxBZIPDI6KqCWFLZ qLYF5GFGdScK2lOZNKNVYoN SUNBTCBTRVJPTUFccGFyfXt irpNqQBple3VyDYklDSAlHI 6ukMqkVTMbXG6dZSSrR3bgv V0myei2AnDnBDGrYsP5HEKz joY2Ntq4RHUgBEwto8tve0Z kOYWuDMz3nUveLjKrDLSnl3 lzcyBcZmNoYXJzZXQwIEFya HKqH524d9qix4rceaZunMD0 FFLeKHI2BFzcfrZdnsX3XFo hoBBjOjS1DKfcqlZlQNfuki PkgrLfCop4ZYWnQ001NEC1s Jhzl4ocLNB8BARcEMFbVkMq Vx8beMIrO122DKMmUYYYQQJ zdYr6KBImblApxhXxtXOQr0 12A713c5nwSUWqchXmuPlVd tevl4uaP328KYMhoTLfloZx HzLzWPMumKLyoWS9OCTuBS7 egqbyXJduXUqbILIoacX1EJ JvuEPsB6YlYZDmDP8ulqxoA SZ9XLmzAFGvBSX8IzRxSGPd b9Lyxib3FoNcqe1urf90JEQ 5f6UerFidZCU0UCS9FpAkVl 2ogILeZALzEN9hCjCxxPZnB PKhqr33cZlrVEyvZMX0CBZl ebUws6Hdb7tpUwUmojDzX6x nK7YhPGVaEMAjFOCuUtFsdx Gwa7Sgh6WmuGYenLe0c3dxP AHpKFFgpZmqw5twOWF3DNVd lPWzR6oajU9aKNCqLQ2hoei mm4rfYMoiGFrpJZUvyIN7og K6KUScpNStR4LicL1mOMJrV GtdWMFilft8PdTuHm5yaQYf eTcyMFxzYmtwYWdlXHBnbmN vbnRccGduZGVjXHBsYWluXH BsYWluXGYwXGZzMjRccWxcb GFuZzEwMzNcaGljaFxmMVxk BuTjBDAfIVwqH5tuPoUpNpM hOiz6FOCqoYUqTWIhUye5YM KmoHSsOHWOjFeezB5pDTEsd UwweF9azBB9HRMwfgJqiIMB cM1nSYEUeW7cWyH4UfXiWkL 0SBc9PbZclWWcxQ6= CPT Code(s) (test code u8deqTXeMHPjfXY9HzMsCXN = 3357) ve9lkl2XclKLxnOXiDQgviI LjxlEvxk99mCS5pL29IG8jZ IXaInO6JPJsoaJ2Ioq7LLQm EJBrqVElW024c9nhg0dbxlC tzUW4qSowRYBiINZwKBczGA ZzMjAgODgzMDVccGFyfQ== CLINICAL HISTORY (test o1emkOXiODOqoHQ9XlElEBX code = 3356) kq2yrk9FgsAAmhTPfQWmshM YohcMmty99pEN5vT64NP6sU TVyEtC2JPVwrpS9Htv8QXRr TILcyWIuF666x4imm6muhuL hoYN4lDvfODLoUTFjEHtqLR ZrAuMwOM7wLVlpreOzZAM2S LdzgG7eWN2jUXvmHvSauU23 ZXIgbGVnIFxwYXJ9 SPECIMEN SOURCE (test t7kkiXZmXGLsjZB1UcZpUEU code = 3377) yx6mph8NjhTRtrSKhREdslM RytiBmzs03pYO7cO60JL4fZ JZjOvQ4ARPaurO1Xye7XOYq PXDdyTMnZ411q4tys7buzxY jnTB9WWMlTCG4QIjgdnIspm H4VVachWYoFaD0O20jfCWeT RfrwWQhginjipHaNAGyE9Sa HJSoLLTzej2rCJyqTAU1 GROSS DESCRIPTION s6gtoQShJUHnaIEeJtKtTMM (test code = 3366) uYTWmh8mnIANdrVWfKmJhOr NcZnRuYmpcdWMxXGRlZmYwe 7yyh891hPWao8evHHTiCeW3 wCRsXORfoGOwR696c2cjd4s edwAvzBB4GFMzHTL3SCkknd ZyspG3ORknuCGpGmT8RQjon pAePYwaosTijqLfEja3CDPu A493KYZ2bWttn4cqRTP3AAK sILFcUbPcYh4lvNAfF804KT VdRBVTROVxiPq5LPNlnjZkt pUzjCMDa496N524s6pvMTTp vxBcrIaNzbykz3thS906CUZ hcGVydzEyMjQwXHBhcGVyaD A6EGOyPD1wckfmExPxWZ6fh csnKrGeVU7jjow9QlMsPQ1m cmdiNzIwXGhlYWRlcnkwXGZ ta8VdeaatTN2fN5Stq2G5oM 9maXRcZGVmdGFiNzIwXGZvc n3quGQpIGdtk6JdPDS7jqJ5 dQAbzFWtBTZiOA59Iwscv5D vJajzUVX2QTXwryAdy4Uov2 ylFvAdftDfL5tlQ8ByQFMfB ZEiLJPgMfIixmHuh5Foj5Ba nTSlzJw1z9zyLYTkMCGdjUt wr6jxECL3WWNmK3T6aOTir4 wsQVpaQQWnwEY3frwzSQycY WLvpwA1dkitBKudQUEeyDP3 ikjsNGjfDAQqXsI8onqrFSe gIJIjFKP7IQyps713GRW8NE xzYmtwYWdlXHBnbmNvbnRcc GduZGVjXHBsYWluXHBsYWlu XGYwXGZzMjRccWxccGxhaW5 bLvWhKrIlQKmrEF8iLLQpO2 qzvTYqLOExOPNlD7zdMsSdz F0nuWacOIlvxkDzOKHpU3Pd dmVkIGZyZXNoIGxhYmVsZWQ gdGhlIHBhdGllbnQncyBuYW 9pIYWjG8Etu9Xmc70bwnPaZ mVyIGFuZCAibGVmdCBsZWcg f1Sfn96dIuAonsZpKTKdRXZ 9FYAkRpT9UMPxHXSvhZElca P0fA31j5o4FUTbg4D0hNOvQ PD9rwomm2Q9cOUaDKD0x1En f5e5nNIoEQdjBMyrf1xosKE kJDKnz631zLDsje1baeHrmL 5pbmcuICBSZXByZXNlbnRhd Pn5XQYyEPI5bK1hwzVchcKh x3XyeUv1rOFxKHxwBEQaJTP yLlxwYXJccGFyIFBpbGFyIE WlO5HgvFfrdzsaWYJqMIpEJ SyHM1ZMSOvsKRC8 MICROSCOPIC k2vhaBIjOJPauDI3KkObCUT DESCRIPTION (test code to8wfk1MkbPXzgENfJYuwvQ = 3371) PdzvIimf91uAQ1pI99XC6nE IEuUfK6PTMyubP6Kcc5GOBv PXXtcRTiF463h3xuk0jxxkG amPK5hXjmVZItRWOqOSagGO WsNpJsTNMoYa8xgMXhKCPoj n0= Gross assessment was [facility] performed at ([facility], code = 2777) Department of Pathology, [address] [place] [address], Technical component [facility] was performed at ([facility], code = 2778) Department of Pathology, [address] [place], [place] [id number], Professional component [facility] at ([facility], code = 2779) Department of Pathology, [address] [place] [address], [facility] Center[facility]UE [id number] 12:40:00Surgical Pathology Report Case: [id number] Authorizing Provider: Rodri Sorto, Collected: 12/31/2020 08:19 AM OrderingLocation: [facility] Received: 12/31/2020 09:18 AM PERIOPERATIVE SERVICES Pathologist: Freedom Chi MD Specimen: Seroma, LEFT LEG SEROMA SEROMA, LEFT LEG, EXCISION:SIMPLE CYST, CONSISTENT WITH CLINICAL SEROMA Signing Pathologist Direct Phone Line: [phone] signed by Freedom Chi MD on 01/03/2021 at 12:40 [id number] swelling of left lower leg SeromaReceived fresh labeled the patient's name, accession number and "left leg seroma" is a 4.4 x 3.7 x 1.5 cm previously disrupted unilocular cyst with a karimi-white, smooth inner lining. [employer] sections are submitted in A1-A2.NILAY Roger, HT (ASCP)PerformedBaCommunity [facility], Department of Pathology, [address] [place] [address], [facility], Department of Pathology, [address] [place] [address], [facility]cyHo[facility], Department of Pathology, [address] [place] [address], BOYX-GLUCOSE [id number] 12:05:00 Test Item Value Reference Range Interpretation Comments POC-GLUCOSE METER 329 mg/dL 70-110 H : TESTED A T [facility] 6720 (BEAKER) (test code = GREG Khan [facility], 1538) [address]: Helmet Hat Puncher/Techni bushra ID = [id number] for An jane (pca2)Soraya POCT-GLUCOSE [id number] 08:18:00 Test Item Value Reference Range Interpretation Comments POC-GLUCOSE METER 249 mg/dL 70-110 H : TESTED A T [facility] 6720 (BEAKER) (test code = [facility], 1538) [address]: Helmet Hat Puncher/Techni bushra ID = [id number] for An jane (pca2), Soraya POCT-GLUCOSE [id number] 21:17:00 Test Item Value Reference Range Interpretation Comments POC-GLUCOSE METER 305 mg/dL 70-110 H : TESTED A T [facility] 6720 (BEAKER) (test code = [facility], 1538) [address]: Helmet Hat Puncher/Techni bushra ID = [id number] for BECK PAZ POCT-GLUCOSE [id number] 18:48:00 Test Item Value Reference Range Interpretation Comments POC-GLUCOSE METER 283 mg/dL 70-110 H : TESTED A T [facility] 6720 (BEAKER) (test code = [facility], 1538) [address]: Helmet Hat Puncher/Techni bushra ID = [id number] for An jane (pca2), Soraya Calcium, [id number] 15:14:00 Test Item Value Reference Range Interpretation Comments Calcium, Ion (test code = 1994-3) 1.06 mmol/L 1.12-1.27 L pH, Blood (test code = 13517-4) 7.40 Lab Interpretation (test code = Abnormal 52173-6) [facility] CenterGlucose-Stat [id number] 15:14:00 Test Item Value Reference Range Interpretation Comments Glucose (test code = 2345-7) 269 mg/dL 70-110 H Lab Interpretation (test code = Abnormal 25705-4) [facility] CenterGLUCOSE-STAT [id number] 15:14:00 Test Item Value Reference Range Interpretation Comments GLUCOSE RANDOM (BEAKER) (test code 269 mg/dL 70-110 H = 652) CALCIUM, [id number] 15:14:00 Test Item Value Reference Range Interpretation Comments CALCIUM IONIZED (BEAKER) (test 1.06 mmol/L 1.12-1.27 L code = 698) PH, BLOOD (BEAKER) (test code = 7.40 1810) HGB/HCT (H&H)-Stat [id number] 15:13:00 Test Item Value Reference Range Interpretation Comments Hemoglobin (test code = 14.5 See_Comment [Au tomated message] 786-4) The system [employer] generated this result transmitted ref erence range: 13.0 - 1 6.8 GM/DL. The refe rence range was not u sed to interpret this result as normal/abnor mal. Hematocrit (test code = 43.0 % 40-50 4544-3) Lab Interpretation (test Normal code = 75006-0) [facility] CenterPotassium-Stat [id number] 15:13:00 Test Item Value Reference Range Interpretation Comments Potassium (test code = 2823-3) 3.9 meq/L 3.6-5.5 Lab Interpretation (test code = Normal 60162-7) [facility] CenterHGB/HCT (H&H) - STAT [id number] 15:13:00 Test Item Value Reference Range Interpretation Comments HEMOGLOBIN (BEAKER) (test code = 14.5 GM/DL 13.0-16.8 410) HEMATOCRIT (BEAKER) (test code = 43.0 % 40.0-50.0 411) POTASSIUM-STAT [id number] 15:13:00 Test Item Value Reference Range Interpretation Comments POTASSIUM (BEAKER) (test code = 3.9 meq/L 3.6-5.5 379) POCT-GLUCOSE [id number] 09:46:00 Test Item Value Reference Range Interpretation Comments POC-GLUCOSE METER 243 mg/dL 70-110 H : TESTED A T [facility] 6720 (BEAKER) (test code = GREG Khan [facility], 1538) [address]: Helmet Hat Puncher/Techni bushra ID = [id number] for NUBIA CULVER Type and screen, [id number] 07:23:00 Test Item Value Reference Range Interpretation Comments ABO/RH AUTOMATED (BEAKER) (test O POSITIVE code = 2260) Ab Scrn (test code = 890-4) NEGATIVE [facility] CenterPOCT[facility]SE [id number] 06:10:00 Test Item Value Reference Range Interpretation Comments POC-GLUCOSE METER 300 mg/dL 70-110 H : TESTED A T [facility] 6720 (PATRICIA) (test code RADHA [facility], = 1538) 107[address]: Helmet Hat Puncher/Techni bushra ID = [id number] for JORD AN, LACRYSTAL SARS-CoV2/RT-PCR ([facility])2020-12-26 23:14:00 Test Item Value Reference Range Interpretation Comments SARS-COV2/RT-PCR Negative Not Detected, (test code = Negative, See 60126-8) external report for linked test SARS-COV-2 [facility] (test code = 43923-7) SUMEET (test code = Negative result for this SUMEET) test determines that SARS-CoV-2 RNA was not present in the specimen above the Limit of Detection (LOD). However, Negative results do not preclude SARS-CoV-2 infection and should not be used as the sole basis for treatment or patient management decisions. Negative results must be combined with clinical observations, patient history, and epidemiological information. A false negative result may occur if a specimen is improperly collected, transported or handled. A false negative result should be considered if patient's recent exposures or clinical presentation indicate that COVID-19 (SARS-CoV-2) is likely and diagnostic tests for other causes of illness are negative. Re-testing should be considered in cases of suspected false negatives. The limit of detection for this assay is 100 copies/mL. This SARS CoV-2 test is a real-time RT-PCR test intended for the qualitative detection of nucleic acid from SARS-CoV-2 in a nasopharyngeal swab specimen collected from individuals suspected of COVID-19 by their healthcare provider. This test has not been Food and Drug Administration (FDA) cleared or approved. This is a modified version of an approved Emergency Use Authorization (EUA) and is in the process of review by the FDA. Once authorized by the FDA, the issued EUA will be effective until the declaration that circumstances exist justifying the authorization of the emergency use of in vitro diagnostic tests for detection and/or diagnosis of COVID-19 is terminated under Section 564(b)(2) of the Act or the EUA is revoked under Section 564(g) of the Act. Testing was performed using the [employer] SARS-CoV-2 assay. Fact Sheet for Healthcare Providers:https://www.mo [email or web address]/RT_SA CL-[email or web address]_POH_Lblw_Yfgrx_ [email or web address].pdf Fact Sheet for Healthcare Patients:[email or web address]://[email or web address] [email or web address]/RT_SAR G-[email or web address]_Ztd [email or web address].pdf Performing Laboratory:[facility] [place] [address] [facility])2020-12-26 23:14:00 Test Item Value Reference Range Interpretation Comments SARS-COV2/RT-PCR (test Negative Not Detected, Negative, code = [id number]) See external report for linked test SARS-COV-[address] [facility] (test code = 3703561) Negative result for this test determines that SARS-CoV-2 RNA was not present in the specimen above the Limit of Detection (LOD). However, Negative results do not preclude SARS-CoV-2 infection and should not be used as the sole basis for treatment or patient management decisions. Negative results mustbe combined with clinical observations, patient history, and epidemiological information. A false negative result may occur if a specimen is improperly collected, transported or handled. A false negative result should be considered if patient's recent exposures or clinical presentation indicate that COVID-19 (SARS-CoV-2) is likely and diagnostic tests for other causes of illness are negative. Re-testing should be considered in cases of suspected false negatives.The limit of detection for this assay is 100 copies/mL.This SARS CoV-2 test is a real-time RT-PCR test intended for the qualitative detection of nucleic acid from SARS-CoV-2 in a nasopharyngeal swab specimen collected from individuals susp ected of COVID-19 by their healthcare provider.This test has not been Food and Drug Administration (FDA) cleared or approved. This is a modified version of an approved Emergency Use Authorization (EUA) and is in the process of review by the FDA. Once authorized by the FDA, the issued EUA will be effective until the declaration that circumstances exist justifying the authorization of the emergency use of in vitro diagnostic tests for detection and/or diagnosis of COVID-19 is terminated under Section 564(b)(2) of the Act or the EUA is revoked under Section 564(g) of the Act.Testing was performed using the [facility] SARS-CoV-2 assay.Fact Sheet for Healthcare Providers:https://www.[facility].scott/caitie/ FN_NIBB-PgS-3_TTP_Ryhj_Lavpe_[id number].pdfFact Sheet for Healthcare Patients:https://www.[facility].Hastify sally/caitie/XE_ZDDV-RxR-2_Zmtngxx_Rjzw_Lbwyc_OH_[id number].pdfPerforming Laboratory:[facility] [facility].[place], [place] [address]HDQ 12 [id number] 16:27:59Interface, External Ris In - 12/26/2020 4:28 PM CDTVentricular Rate 71 BPMAtrial Rate 71 BPMP-R Interval 216 msQRS Duration 94 msQ-T Interval 418 msQTC Calculation(Bazett) 454 msP Aurora 61 degreesR Aurora 61 degreesT Aurora -21 degreesSinus rhythm with 1st degree A-V blockLow voltage QRSSeptal infarct (cited on or before 26-DEC-2020)Abnormal ECGWhen compared with ECG of 31-DEC-2019 05:03,Sinus rhythm hasreplaced Atrial fibrillationVent. rate has decreased BY 65 BPMQRS duration has increasedNon-specific change in ST segment in Inferior leadsConfirmed by MD Alexander Roberto ([id number]) on 12/26/2020 4:27:57 [facility] [id number] 12:39:00 Test Item Value Reference Range Interpretation Comments SODIUM (BEAKER) 138 meq/L 136-145 (test code = 381) POTASSIUM (BEAKER) 4.5 meq/L 3.5-5.1 (test code = 379) CHLORIDE (BEAKER) 104 meq/L 98-107 (test code = 382) CO2 (BEAKER) (test 26 meq/L 22-29 code = 355) BLOOD UREA NITROGEN 19 mg/dL 7-21 (BEAKER) (test code = 354) CREATININE (BEAKER) 1.34 mg/dL 0.57-1.25 H (test code = 358) GLUCOSE RANDOM 394 mg/dL 70-105 H (BEAKER) (test code = 652) CALCIUM (BEAKER) 9.5 mg/dL 8.4-10.2 (test code = 697) EGFR (BEAKER) (test 53 mL/min/1.73 ESTIMA STEPHANY GFR IS code = 1092) sq m NOT ACCURATE CREATININE CLEARANCE IN PREDICTING GLOMERULAR FILTRATION RATE . ESTIMATED GFR I S NOT APPLICABLE FOR DIALYSIS PATIEN TS. Helmet Hat Puncher ID - SANIA MPROTHROMBIN TIME/[id number] 12:34:00 Test Item Value Reference Range Interpretation Comments PROTIME (BEAKER) 12.9 seconds 11.9-14.2 (test code = 759) INR (BEAKER) (test 1.00 See_Comment [Automat ed message] code = 370) The system [employer] generated this result transmitted ref erence range: <=5.90. The reference range was not used to int erpret this result as normal/abnormal . RECOMMENDED COUMADIN/WARFARIN INR THERAPY RANGESSTANDARD DOSE: 2.0 - 3.0 Includes: PROPHYLAXIS forvenous thrombosis, systemic embolization; TREATMENT for venous thrombosis and/or pulmonary embolus.HIGH RISK: Target INR is 2.5-3.5 for patients with mechanical heart valves.CBC W/PLT COUNT & AUTO DIFFERENTIAL 2020-12-26 12:16:00 Test Item Value Reference Range Interpretation Comments WHITE BLOOD CELL COUNT (BEAKER) 7.4 K/ L 3.5-10.5 (test code = 775) RED BLOOD CELL COUNT (BEAKER) 5.46 M/ L 4.63-6.08 (test code = 761) HEMOGLOBIN (BEAKER) (test code = 15.8 GM/DL 13.7-17.5 410) HEMATOCRIT (BEAKER) (test code = 47.8 % 40.1-51.0 411) MEAN CORPUSCULAR VOLUME (BEAKER) 87.5 fL 79.0-92.2 (test code = 753) MEAN CORPUSCULAR HEMOGLOBIN 28.9 pg 25.7-32.2 (BEAKER) (test code = 751) MEAN CORPUSCULAR HEMOGLOBIN CONC 33.1 GM/DL 32.3-36.5 (BEAKER) (test code = 752) RED CELL DISTRIBUTION WIDTH 13.4 % 11.6-14.4 (BEAKER) (test code = 412) PLATELET COUNT (BEAKER) (test 139 K/CU MM 150-450 L code = 756) MEAN PLATELET VOLUME (BEAKER) 9.1 fL 9.4-12.4 L (test code = 754) NUCLEATED RED BLOOD CELLS 0 /100 WBC 0-0 (BEAKER) (test code = 413) NEUTROPHILS RELATIVE PERCENT 69 % (BEAKER) (test code = 429) LYMPHOCYTES RELATIVE PERCENT 20 % (BEAKER) (test code = 430) MONOCYTES RELATIVE PERCENT 9 % (BEAKER) (test code = 431) EOSINOPHILS RELATIVE PERCENT 2 % (BEAKER) (test code = 432) BASOPHILS RELATIVE PERCENT 1 % (BEAKER) (test code = 437) NEUTROPHILS ABSOLUTE COUNT 5.06 K/ L 1.78-5.38 (BEAKER) (test code = 670) LYMPHOCYTES ABSOLUTE COUNT 1.44 K/ L 1.32-3.57 (BEAKER) (test code = 414) MONOCYTES ABSOLUTE COUNT (BEAKER) 0.66 K/ L 0.30-0.82 (test code = 415) EOSINOPHILS ABSOLUTE COUNT 0.14 K/ L 0.04-0.54 (BEAKER) (test code = 416) BASOPHILS ABSOLUTE COUNT (BEAKER) 0.04 K/ L 0.01-0.08 (test code = 417) IMMATURE GRANULOCYTES-RELATIVE 0 % 0-1 PERCENT (BEAKER) (test code = 2801) POCT-GLUCOSE [id number] 11:27:00 Test Item Value Reference Range Interpretation Comments POC-GLUCOSE METER 293 mg/dL 70-110 H : TESTED A T [facility] 6720 (BEAKER) (test code = [facility], 153) 91973: Helmet Hat Puncher/Techni bushra ID = [id number] for CHANDRIKA BISWASA, ANNYNDY POCT-GLUCOSE [id number] 07:46:00 Test Item Value Reference Range Interpretation Comments POC-GLUCOSE METER 154 mg/dL 70-110 H : TESTED A T [facility] 6720 (BEAKER) (test code = [facility], 1538) 89478: Helmet Hat Puncher/Techni bushra ID = [id number] for ZA VALA, ANNYNDY [id number] 06:29:00 Test Item Value Reference Range Interpretation Comments MAGNESIUM (BEAKER) 2.0 mg/dL 1.6-2.6 Specimen slightly (test code = 627) hemolyzed Helmet Hat Puncher HEATHER GAN [id number] 06:29:00 Test Item Value Reference Range Interpretation Comments PHOSPHORUS (BEAKER) 4.0 mg/dL 2.3-4.7 Specimen slightly (test code = 604) hemolyzed Helmet Hat Puncher HEATHER GAN WCBC (HEMOGRAM ONLY)2020-01-06 06:23:00 Test Item Value Reference [...] H (BEAKER) (test code = 413) CALCIUM, [id number] 05:39:00 Test Item Value Reference Range Interpretation Comments CALCIUM IONIZED (BEAKER) (test 1.07 mmol/L 1.12-1.27 L code = 698) PH, BLOOD (BEAKER) (test code = 7.46 1810) POCT-GLUCOSE [id number] 22:28:00 Test Item Value Reference Range Interpretation Comments POC-GLUCOSE METER 161 mg/dL 70-110 H : TESTED A T [facility] 6720 (BEAKER) (test code = [place], 1538) 27[address]: Helmet Hat Puncher/Techni bushra ID = [id number] for BECK PAZ POCT-GLUCOSE [id number] 16:46:00 Test Item Value Reference Range Interpretation Comments POC-GLUCOSE METER 112 mg/dL 70-110 H : TESTED A T [facility] 6720 (BEAKER) (test code = [facility], 1538) 05971: Helmet Hat Puncher/Techni bushra ID = [id number] for DION KAY, MERRYNEWINIFRED SPUTUM CULTURE + GRAM [id number] 13:35:00 Test Item Value Reference Range Interpretation Comments CULTURE (BEAKER) 2+ Normal respiratory (test code = 1095) dexter present GRAM STAIN RESULT <1+ WBCs (BEAKER) (test code = 1123) GRAM STAIN RESULT 5-10 epithelial cells (BEAKER) (test code = 54268) GRAM STAIN RESULT 1+ gram positive cocci (BEAKER) (test code = in chains, pairs and 62623) clusters GRAM STAIN RESULT 1+ gram variable rods (BEAKER) (test code = 275277) POCT-GLUCOSE [id number] 11:51:00 Test Item Value Reference Range Interpretation Comments POC-GLUCOSE METER 245 mg/dL 70-110 H : TESTED A T [facility] 6720 (BEAKER) (test code = [facility], 153) 63274: Helmet Hat Puncher/Techni bushra ID = [id number] for TAY GARCIA POCT-GLUCOSE [id number] 07:33:00 Test Item Value Reference Range Interpretation Comments POC-GLUCOSE METER 256 mg/dL 70-110 H : TESTED A T [facility] 6720 (BEAKER) (test code = [facility], 153) 00851: Helmet Hat Puncher/Techni bushra ID = [id number] for DION LLIAMS, TYNEKA CALCIUM, [id number] 06:25:00 Test Item Value Reference Range Interpretation Comments CALCIUM IONIZED (BEAKER) (test 1.05 mmol/L 1.12-1.27 L code = 698) PH, BLOOD (BEAKER) (test code = 7.49 1810) [id number] 04:39:00 Test Item Value Reference Range Interpretation Comments PHOSPHORUS (BEAKER) (test code = 3.2 mg/dL 2.3-4.7 604) Helmet Hat Puncher ID - SANIA [id number] 04:39:00 Test Item Value Reference Range Interpretation Comments MAGNESIUM (BEAKER) (test code = 1.9 mg/dL 1.6-2.6 627) Helmet Hat Puncher ID - SANIA MBASIC METABOLIC [id number] 04:39:00 Test Item Value Reference Range Interpretation [...] 697) EGFR (BEAKER) (test 70 mL/min/1.73 ESTIMA STEPHANY GFR IS code = 1092) sq m NOT ACCURATE CREATININE CLEARANCE IN PREDICTING GLOMERULAR FILTRATION RATE . ESTIMATED GFR I S NOT APPLICABLE FOR DIALYSIS PATIEN TS. Helmet Hat Puncher ID - SANIA MCBC (HEMOGRAM ONLY)2020-01-05 04:22:00 Test Item Value [...] H (BEAKER) (test code = 413) POCT-GLUCOSE [id number] 21:09:00 Test Item Value Reference Range Interpretation Comments POC-GLUCOSE METER 333 mg/dL 70-110 H : TESTED A T [facility] 6720 (BEAKER) (test code = [place], 1538) 8[address]: Helmet Hat Puncher/Techni bushra ID = [id number] for Dana Morley BASIC METABOLIC [id number] 17:36:00 Test Item Value Reference Range Interpretation [...] 697) EGFR (BEAKER) (test 59 mL/min/1.73 ESTIMA STEPHANY GFR IS code = 1092) sq m NOT ACCURATE CREATININE CLEARANCE IN PREDICTING GLOMERULAR FILTRATION RATE . ESTIMATED GFR I S NOT APPLICABLE FOR DIALYSIS PATIEN TS. Helmet Hat Puncher ID - BSPOCT-GLUCOSE [id number] 17:13:00 Test Item Value Reference Range Interpretation Comments POC-GLUCOSE METER 254 mg/dL 70-110 H : TESTED A T [facility] 6720 (BEAKER) (test code = [facility], 1538) 28826: Helmet Hat Puncher/Techni bushra ID = [id number] for SHAUN MIKE POCT-GLUCOSE [id number] 12:25:00 Test Item Value Reference Range Interpretation Comments POC-GLUCOSE METER 271 mg/dL 70-110 H : TESTED A T [facility] 6720 (BEAKER) (test code = [facility], 1538) 95475: Helmet Hat Puncher/Techni bushra ID = [id number] for GERHARD URBINA POCT-GLUCOSE [id number] 08:24:00 Test Item Value Reference Range Interpretation Comments POC-GLUCOSE METER 250 mg/dL 70-110 H : TESTED A T [facility] 6720 (BEAKER) (test code = [facility], 1538) 86330: Helmet Hat Puncher/Techni bushra ID = [id number] for Andrea Grey [id number] 06:40:00 Test Item Value Reference Range Interpretation Comments PHOSPHORUS (BEAKER) (test code = 3.3 mg/dL 2.3-4.7 604) Helmet Hat Puncher ID - FILIPPO [id number] 06:40:00 Test Item Value Reference Range Interpretation Comments MAGNESIUM (BEAKER) (test code = 2.0 mg/dL 1.6-2.6 627) Helmet Hat Puncher ID - FILIPPO LBASIC METABOLIC [id number] 06:40:00 Test Item Value Reference Range Interpretation [...] 697) EGFR (BEAKER) (test 66 mL/min/1.73 ESTIMA STEPHANY GFR IS code = 1092) sq m NOT ACCURATE CREATININE CLEARANCE IN PREDICTING GLOMERULAR FILTRATION RATE . ESTIMATED GFR I S NOT APPLICABLE FOR DIALYSIS PATIEN TS. Helmet Hat Puncher ID - PIAYA LCBC (HEMOGRAM ONLY)2020-01-04 06:07:00 [...] H (BEAKER) (test code = 413) CALCIUM, [id number] 05:55:00 Test Item Value Reference Range Interpretation Comments CALCIUM IONIZED (BEAKER) (test 1.03 mmol/L 1.12-1.27 L code = 698) PH, BLOOD (BEAKER) (test code = 7.46 1810) RAD, CHEST, 1 VIEW, NON [id number] 05:36:00Reason for exam:->s/p ACB, fluid overloadShould this be performed at the bedside?->YesFINAL REPORT CLINICAL INDICATION: Postop Comparison: 01/03/2020 The cardiomediastinal contours are stable. Central pulmonary vascular congestion and bilateral parenchymal opacities are partially improved, suggesting improving pulmonary edema. There is no pneumothorax or significant pleural collection. A right IJ CVC has been removed. Signed: Evie Alvares MDReport Verified Date/ Time: 01/04/2020 05:36:24 POCT-GLUCOSE [id number] 22:09:00 Test Item Value Reference Range Interpretation Comments POC-GLUCOSE METER 260 mg/dL 70-110 H : TESTED A T [facility] 6720 (BEAKER) (test code = [employer] [place], 1538) 62034: Helmet Hat Puncher/Techni bushra ID = [id number] for Dana Morley BASIC METABOLIC [id number] 17:47:00 Test Item Value Reference Range Interpretation [...] 697) EGFR (BEAKER) (test 67 mL/min/1.73 ESTIMA STEPHANY GFR IS code = 1092) sq m NOT ACCURATE CREATININE CLEARANCE IN PREDICTING GLOMERULAR FILTRATION RATE . ESTIMATED GFR I S NOT APPLICABLE FOR DIALYSIS PATIEN TS. Helmet Hat Puncher ID - VIK EPOCT-GLUCOSE [id number] 11:45:00 Test Item Value Reference Range Interpretation Comments POC-GLUCOSE METER 276 mg/dL 70-110 H : TESTED A T [facility] 6720 (BEAKER) (test code = [employer] [place], 1538) 05647: Helmet Hat Puncher/Techni bushra ID = [id number] for [facility] HEATHER MANN POCT-GLUCOSE [id number] 07:39:00 Test Item Value Reference Range Interpretation Comments POC-GLUCOSE METER 219 mg/dL 70-110 H : TESTED A T [facility] 6720 (BEAKER) (test code = [place], 1538) 80852: Helmet Hat Puncher/Techni bushra ID = [id number] for Katy musa CALCIUM, [id number] 03:58:00 Test Item Value Reference Range Interpretation Comments CALCIUM IONIZED (BEAKER) (test 1.04 mmol/L 1.12-1.27 L code = 698) PH, BLOOD (BEAKER) (test code = 7.41 1810) BASIC METABOLIC [id number] 03:57:00 Test Item Value Reference Range Interpretation [...] 697) EGFR (BEAKER) (test 78 mL/min/1.73 ESTIMA STEPHANY GFR IS code = 1092) sq m NOT ACCURATE CREATININE CLEARANCE IN PREDICTING GLOMERULAR FILTRATION RATE . ESTIMATED GFR I S NOT APPLICABLE FOR DIALYSIS PATIEN TS. Helmet Hat Puncher ID - [id number] 03:53:00 Test Item Value Reference Range Interpretation Comments PHOSPHORUS (BEAKER) (test code = 3.3 mg/dL 2.3-4.7 604) Helmet Hat Puncher ID - [id number] 03:53:00 Test Item Value Reference Range Interpretation Comments MAGNESIUM (BEAKER) (test code = 1.9 mg/dL 1.6-2.6 627) Helmet Hat Puncher ID - LAHEPATIC FUNCTION [id number] 03:53:00 Test Item Value Reference Range Interpretation [...] (test code = 34 U/L 6-55 347) Helmet Hat Puncher ID - [id number] 03:53:00 Test Item Value Reference Range Interpretation Comments AMYLASE (BEAKER) (test code = 349) 183 U/L 25-125 H Helmet Hat Puncher ID - [id number] 03:53:00 Test Item Value Reference Range Interpretation Comments LIPASE (BEAKER) (test code = 749) 454 U/L 8-78 H Helmet Hat Puncher ID - LACBC (HEMOGRAM ONLY)2020-01-03 03:38:00 Test [...] = 413) RAD, CHEST, 1 VIEW, NON [id number] 03:06:00Reason for exam:->s/p ACB, fluid overloadShould this [...] contours. Additional findings: None. Signed: Sen Joshi MDReport Verified Date/Time: 01/03/2020 03:06:33 POCT-GLUCOSE [id number] 22:56:00 Test Item Value Reference Range Interpretation Comments POC-GLUCOSE METER 224 mg/dL 70-110 H : TESTED A T [facility] 6720 (BEAKER) (test code = [place], 1538) 92298: Helmet Hat Puncher/Techni bushra ID = [id number] for DO SHAKA REMY [id number] 18:17:00 Test Item Value Reference Range Interpretation Comments MAGNESIUM (BEAKER) 2.1 mg/dL 1.6-2.6 Specimen slightly (test code = 627) hemolyzed Helmet Hat Puncher ID - [id number] 18:17:00 Test Item Value Reference Range Interpretation Comments POTASSIUM (BEAKER) 4.0 meq/L 3.5-5.1 Specimen slightly (test code = 379) hemolyzed Helmet Hat Puncher ID - NTPU/S, ABDOMINAL, [id number] 17:44:00Reason for exam:- >abdomoanl pain, increased amylase [...] Segovia Verified Date/Time: 01/02/2020 17:44:05 Reading Location: [address] Body Reading Room POCT-GLUCOSE [id number] 17:37:00 Test Item Value Reference Range Interpretation Comments POC-GLUCOSE METER 251 mg/dL 70-110 H : TESTED A T [facility] 6720 (BEAKER) (test code = [place], 1538) 72097: Helmet Hat Puncher/Techni bushra ID = [id number] for HEATHER DANIEL [id number] 14:12:00 Test Item Value Reference Range Interpretation Comments PROCALCITONIN (PORFIRIOAKER) (test code 0.26 ng/mL <0.05 H = 3036) SEPSIS RISK (ng/mL)Low: 0.05-0.50Intermediate: 0.51-2.00High: >=[id number] 14:01:00 Test Item Value Reference Range Interpretation Comments LIPASE (BEAKER) (test code = 749) 508 U/L 8-78 H Helmet Hat Puncher ID - [id number] 14:01:00 Test Item Value Reference Range Interpretation Comments AMYLASE (BEAKER) (test 177 U/L 25-125 H Speci men slightly code = 349) hemolyzed Helmet Hat Puncher ID - NTPHEPATIC FUNCTION [id number] 14:01:00 Test Item Value Reference Range Interpretation [...] Specimen slightly (test code = 347) hemolyzed Helmet Hat Puncher ID - [id number] 13:46:00 Test Item Value Reference Range Interpretation [...] 0-0 H (BEAKER) (test code = 413) URINALYSIS W/ REFLEX URINE [id number] 11:53:00 Test Item Value Reference Range Interpretation [...] = 516) SOURCE(BEAKER) (test code = 2795) Helmet Hat Puncher ID - [auto]Helmet Hat Puncher ID - techPOCT-GLUCOSE [id number] 11:47:00 Test Item Value Reference Range Interpretation Comments POC-GLUCOSE METER 243 mg/dL 70-110 H : TESTED A T [facility] 6720 (BEAKER) (test code = [facility], 1538) 52701: Helmet Hat Puncher/Techni bushra ID = [id number] for SHIRLEY FOX POCT-GLUCOSE [id number] 07:33:00 Test Item Value Reference Range Interpretation Comments POC-GLUCOSE METER 263 mg/dL 70-110 H : TESTED A T [facility] 6720 (BEAKER) (test code = [facility], 1538) 96931: Helmet Hat Puncher/Techni bushra ID = [id number] for HEATHER DANIEL CALCIUM, [id number] 05:08:00 Test Item Value Reference Range Interpretation Comments CALCIUM IONIZED (BEAKER) (test 1.06 mmol/L 1.12-1.27 L code = 698) PH, BLOOD (BEAKER) (test code = 7.43 1810) OXYGEN SATURATION, [id number] 04:46:00 Test Item Value Reference Range Interpretation Comments O2 SATURATION (MEASURED) (BEAKER) 64.2 % (test code = 1455) [id number] 03:48:00 Test Item Value Reference Range Interpretation Comments PHOSPHORUS (BEAKER) (test code = 2.8 mg/dL 2.3-4.7 604) Helmet Hat Puncher ID - SANIA [id number] 03:48:00 Test Item Value Reference Range Interpretation Comments MAGNESIUM (BEAKER) (test code = 2.0 mg/dL 1.6-2.6 627) Helmet Hat Puncher ID - SANIA MBASIC METABOLIC [id number] 03:48:00 Test Item Value Reference Range Interpretation [...] 697) EGFR (BEAKER) (test 70 mL/min/1.73 ESTIMA STEPHANY GFR IS code = 1092) sq m NOT ACCURATE CREATININE CLEARANCE IN PREDICTING GLOMERULAR FILTRATION RATE . ESTIMATED GFR I S NOT APPLICABLE FOR DIALYSIS PATIEN TS. Helmet Hat Puncher ID - SANIA MCBC (HEMOGRAM ONLY)2020-01-02 03:36:00 [...] = 413) RAD, CHEST, 1 VIEW, NON [id number] 02:20:00Reason for exam:->s/p ACB, fluid overloadShould this [...] >25 epithelial cells (BEAKER) (test code = 92738) GRAM STAIN RESULT 4+ gram positive cocci in (BEAKER) (test code chains, pairs and = 97097) clusters POCT-GLUCOSE [id number] 22:45:00 Test Item Value Reference Range Interpretation Comments POC-GLUCOSE METER 237 mg/dL 70-110 H : [facility] ([facility] (test code = [facility], 1538) 43386: Helmet Hat Puncher/Techni bushra ID = [id number] for AMBER CHU [id number] 17:09:00 Test Item Value Reference Range Interpretation Comments POTASSIUM (BEAKER) (test code = 4.0 meq/L 3.5-5.1 379) Helmet Hat Puncher ID - NTPEvery 8 hours PRN for Creatinine greater than or equal to 2 mg/dL.[id number] 17:09:00 Test Item Value Reference Range Interpretation Comments MAGNESIUM (BEAKER) (test code = 2.2 mg/dL 1.6-2.6 627) Helmet Hat Puncher ID - NTPEvery 8 hours PRN for Creatinine greater than or equal to 2 mg/dL.CALCIUM, [id number] 16:52:00 Test Item Value Reference Range Interpretation Comments CALCIUM IONIZED (BEAKER) (test 1.07 mmol/L 1.12-1.27 L code = 698) PH, BLOOD (BEAKER) (test code = 7.43 1810) POCT-GLUCOSE [id number] 16:46:00 Test Item Value Reference Range Interpretation Comments POC-GLUCOSE METER 213 mg/dL 70-110 H : TESTED A T [facility] 6720 (BEAKER) (test code = [facility], 1538) 34954: Helmet Hat Puncher/Techni bushra ID = [id number] for Ayesha Simeon POCT-GLUCOSE [id number] 12:18:00 Test Item Value Reference Range Interpretation Comments POC-GLUCOSE METER 330 mg/dL 70-110 H : TESTED A T [facility] 6720 (BEAKER) (test code = [facility] [facility], 1538) 44457: Helmet Hat Puncher/Techni bushra ID = [id number] for Ayesha Simeon [id number] 11:46:00 Test Item Value Reference Range Interpretation Comments PROCALCITONIN (BEAKER) (test code 0.25 ng/mL <0.05 H = 3036) SEPSIS RISK (ng/mL)Low: 0.05-0.50Intermediate: 0.51-2.00High: >=[id number] 11:31:00 Test Item Value Reference Range Interpretation Comments POTASSIUM (BEAKER) (test code = 3.8 meq/L 3.5-5.1 379) Helmet Hat Puncher ID - SANIA MEvery 8 hours PRN for Creatinine greater than or equal to 2 mg/dL.[id number] 11:31:00 Test Item Value Reference Range Interpretation Comments MAGNESIUM (BEAKER) (test code = 2.2 mg/dL 1.6-2.6 627) Helmet Hat Puncher ID - SANIA MEvery 8 hours PRN for Creatinine greater than or equal to 2 mg/dL.POCT-GLUCOSE [id number] 07:57:00 Test Item Value Reference Range Interpretation Comments POC-GLUCOSE METER 250 mg/dL 70-110 H : TESTED A T [facility] 6720 (BEAKER) (test code = [place], 1538) 04924: Helmet Hat Puncher/Techni bushra ID = [id number] for Ayesha Simeon BASIC METABOLIC [id number] 04:22:00 Test Item Value Reference Range Interpretation [...] 697) EGFR (BEAKER) (test 75 mL/min/1.73 ESTIMA STEPHANY GFR IS code = 1092) sq m NOT ACCURATE CREATININE CLEARANCE IN PREDICTING GLOMERULAR FILTRATION RATE . ESTIMATED GFR I S NOT APPLICABLE FOR DIALYSIS PATIEN TS. Helmet Hat Puncher ID - SANIA [id number] 04:18:00 Test Item Value Reference Range Interpretation Comments PHOSPHORUS (BEAKER) (test code = 2.6 mg/dL 2.3-4.7 604) Helmet Hat Puncher ID - SANIA [id number] 04:18:00 Test Item Value Reference Range Interpretation Comments MAGNESIUM (BEAKER) (test code = 1.9 mg/dL 1.6-2.6 627) Helmet Hat Puncher ID - SANIA MCBC (HEMOGRAM ONLY)2020-01-01 04:12:00 [...] H (BEAKER) (test code = 413) CALCIUM, [id number] 04:01:00 Test Item Value Reference Range Interpretation Comments CALCIUM IONIZED (BEAKER) (test 1.01 mmol/L 1.12-1.27 L code = 698) PH, BLOOD (BEAKER) (test code = 7.46 1810) OXYGEN SATURATION, [id number] 04:00:00 Test Item Value Reference Range Interpretation Comments O2 SATURATION (MEASURED) (BEAKER) 65.4 % (test code = 1455) RAD, CHEST, 1 VIEW, NON [id number] 02:52:00Reason for exam:->s/p ACBShould this be performed at the bedside?->YesFINAL REPORT CLINICAL INDICATION: Postop Comparison: 12/31/2019 The cardiomedi astinal contours are stable. The lung volumes remain low. Central pulmonary vascular prominence and bilateral parenchymal opacities are unchanged. There is no pneumothorax. A left chest tube has been removed. A right IJ CVC remains in place. Signed: Evie Alvares MDReport Verified Date/Time: 01/01/2020 02:52:30 POCT- GLUCOSE [id number] 22:43:00 Test Item Value Reference Range Interpretation Comments POC-GLUCOSE METER 195 mg/dL 70-110 H : TESTED A T [facility] 6720 (BEAKER) (test code = [facility], 1538) [id number]: Helmet Hat Puncher/Techni bushra ID = [id number] for DO SANDER REMYSY POCT-GLUCOSE [id number] 16:47:00 Test Item Value Reference Range Interpretation Comments POC-GLUCOSE METER 213 mg/dL 70-110 H : TESTED A T [facility] 67[facility] (BEAKER) (test code = [facility], 1538) [id number]: Helmet Hat Puncher/Techni bushra ID = [id number] for ST SHIRLEY AGARWAL [id number] 14:33:00 Test Item Value Reference Range Interpretation Comments POTASSIUM (BEAKER) (test code = 3.9 meq/L 3.5-5.1 379) Helmet Hat Puncher ID - NTPCheck Serum Potassium level 2 hours after oral potassium replacement completed or 30 min after intravenous potassium replacement. [id number] 14:33:00 Test Item Value Reference Range Interpretation Comments MAGNESIUM (BEAKER) (test code = 2.1 mg/dL 1.6-2.6 627) Helmet Hat Puncher ID - NTPCheck Serum Potassium level 2 hours after oral potassium replacement completed or 30 min after intravenous potassium replacement.LACTIC ACID, [id number] 12:28:00 Test Item Value Reference Range Interpretation Comments LACTATE BLOOD VENOUS (2) (BEAKER) 1.90 mmol/L 0.50-2.20 (test code = 2872) Helmet Hat Puncher ID - NTPPOCT-GLUCOSE [id number] 11:20:00 Test Item Value Reference Range Interpretation Comments POC-GLUCOSE METER 183 mg/dL 70-110 H : TESTED A T [facility] 6720 (BEAKER) (test code = [facility], 1538) [id number]: Helmet Hat Puncher/Techni bushra ID = [id number] for ST SHIRLEY AGARWAL POCT-GLUCOSE [id number] 06:30:00 Test Item Value Reference Range Interpretation Comments POC-GLUCOSE METER 161 mg/dL 70-110 H : TESTED A T [facility] 6720 (BEAKER) (test code = [facility] [place], 1538) [id number]: Helmet Hat Puncher/Techni bushra ID = [id number] for FERDINAND JARAMILLO BASIC METABOLIC [id number] 05:21:00 Test Item Value Reference Range Interpretation [...] 697) EGFR (BEAKER) (test 84 mL/min/1.73 ESTIMA STEPHANY GFR IS code = 1092) sq m NOT ACCURATE CREATININE CLEARANCE IN PREDICTING GLOMERULAR FILTRATION RATE . ESTIMATED GFR I S NOT APPLICABLE FOR DIALYSIS PATIEN TS. Helmet Hat Puncher ID - SANIA MOXYGEN SATURATION, [id number] 05:17:00 Test Item Value Reference Range Interpretation Comments O2 SATURATION (MEASURED) (BEAKER) 97.2 % (test code = 1455) [id number] 05:15:00 Test Item Value Reference Range Interpretation Comments PHOSPHORUS (BEAKER) (test code = 2.6 mg/dL 2.3-4.7 604) Helmet Hat Puncher ID - SANIA [id number] 05:15:00 Test Item Value Reference Range Interpretation Comments MAGNESIUM (BEAKER) (test code = 2.0 mg/dL 1.6-2.6 627) Helmet Hat Puncher ID - SANIA MBLOOD GAS, [id number] 04:47:00 Test Item Value Reference Range Interpretation [...] (test code = 1819) 40.0 % CALCIUM, [id number] 04:47:00 Test Item Value Reference Range Interpretation [...] = 413) RAD, CHEST, 1 VIEW, NON [id number] 03:58:00Reason for exam:->s/p ACBShould this be performed [...] Sen Joshi Verified Date/Time: 12/31/2019 03:58:10 POCT-GLUCOSE [id number] 23:57:00 Test Item Value Reference Range Interpretation Comments POC-GLUCOSE METER 133 mg/dL 70-110 H : TESTED A T [facility] 6720 (BEAKER) (test code = [facility], 1538) 22879: Helmet Hat Puncher/Techni bushra ID = [id number] for DO MINGUEZ, SHAKA POCT-GLUCOSE [id number] 21:43:00 Test Item Value Reference Range Interpretation Comments POC-GLUCOSE METER 135 mg/dL 70-110 H : TESTED A T [facility] 6720 (BEAKER) (test code = [facility], 1538) 86699: Helmet Hat Puncher/Techni bushra ID = [id number] for DO MINGUEZ, SHAKA POCT-GLUCOSE [id number] 18:50:00 Test Item Value Reference Range Interpretation Comments POC-GLUCOSE METER 126 mg/dL 70-110 H : TESTED A T [facility] 6720 (BEAKER) (test code = [facility], 1538) 73529: Helmet Hat Puncher/Techni bushra ID = [id number] for Ga Steve estrella [id number] 17:38:00 Test Item Value Reference Range Interpretation Comments MAGNESIUM (BEAKER) (test code = 2.1 mg/dL 1.6-2.6 627) Helmet Hat Puncher ID - SANIA MBASIC METABOLIC [id number] 17:38:00 Test Item Value Reference Range Interpretation [...] 697) EGFR (BEAKER) (test 74 mL/min/1.73 ESTIMA STEPHANY GFR IS code = 1092) sq m NOT ACCURATE CREATININE CLEARANCE IN PREDICTING GLOMERULAR FILTRATION RATE . ESTIMATED GFR I S NOT APPLICABLE FOR DIALYSIS PATIEN TS. Helmet Hat Puncher ID - SANIA MPOCT-GLUCOSE [id number] 16:38:00 Test Item Value Reference Range Interpretation Comments POC-GLUCOSE METER 129 mg/dL 70-110 H : TESTED A T [facility] 6720 (BEAKER) (test code = [facility], 1538) 36248: Helmet Hat Puncher/Techni bushra ID = [id number] for Ga rner, Steve POCT-GLUCOSE [id number] 14:43:00 Test Item Value Reference Range Interpretation Comments POC-GLUCOSE METER 138 mg/dL 70-110 H : TESTED A T [facility] 6720 (BEAKER) (test code = [facility], 1538) 94086: Helmet Hat Puncher/Techni bushra ID = [id number] for Ga rner, Steve POCT-GLUCOSE [id number] 11:39:00 Test Item Value Reference Range Interpretation Comments POC-GLUCOSE METER 153 mg/dL 70-110 H : TESTED A T [facility] 6720 (BEAKER) (test code = [facility], 1538) 00628: Helmet Hat Puncher/Techni bushra ID = [id number] for Ga rner, Steve POCT-GLUCOSE [id number] 08:58:00 Test Item Value Reference Range Interpretation Comments POC-GLUCOSE METER 183 mg/dL 70-110 H : TESTED A T [facility] 6720 (BEAKER) (test code = [facility] [place], 1538) [address]: Helmet Hat Puncher/Techni bushra ID = [id number] for Steve Clemens LACTIC ACID, [id number] 06:39:00 Test Item Value Reference Range Interpretation Comments LACTATE BLOOD 4.0 mmol/L 0.5-2.2 HH Specimen marke dly ARTERIAL (2) (BEAKER) hemoly zed (test code = 2874) Helmet Hat Puncher ID - SANIA MBLOOD GAS, [id number] 05:58:00 Test Item Value Reference Range Interpretation [...] (test code = 1819) 100.0 % GLUCOSE-STAT [id number] 05:58:00 Test Item Value Reference Range Interpretation Comments GLUCOSE RANDOM (BEAKER) (test code 201 mg/dL 70-110 H = 652) HGB/HCT (H&H) - STAT [id number] 05:58:00 Test Item Value Reference Range Interpretation Comments HEMOGLOBIN (BEAKER) (test code = 8.2 g/dL 13.0-16.8 L 410) HEMATOCRIT (BEAKER) (test code = 24.0 % 40.0-50.0 L 411) SODIUM NA-STAT [id number] 05:57:00 Test Item Value Reference Range Interpretation Comments SODIUM (BEAKER) (test code = 381) 136 meq/L 136-145 POTASSIUM-STAT [id number] 05:57:00 Test Item Value Reference Range Interpretation [...] 0-0 (BEAKER) (test code = 413) POCT-GLUCOSE [id number] 05:18:00 Test Item Value Reference Range Interpretation Comments POC-GLUCOSE METER 202 mg/dL 70-110 H : TESTED A T [facility] 6720 (BEAKER) (test code = [facility], 1538) [address]: Helmet Hat Puncher/Techni bushra ID = [id number] for FALK ALLA LACTIC ACID, [id number] 04:12:00 Test Item Value Reference Range Interpretation Comments LACTATE BLOOD VENOUS (2) (BEAKER) 4.68 mmol/L 0.50-2.20 HH (test code = 2872) Helmet Hat Puncher ID - SANIA MBASIC METABOLIC [id number] 04:09:00 Test Item Value Reference Range Interpretation [...] 697) EGFR (BEAKER) (test 67 mL/min/1.73 ESTIMA STEPHANY GFR IS code = 1092) sq m NOT ACCURATE CREATININE CLEARANCE IN PREDICTING GLOMERULAR FILTRATION RATE . ESTIMATED GFR I S NOT APPLICABLE FOR DIALYSIS PATIEN TS. Helmet Hat Puncher ID - SANIA [id number] 04:01:00 Test Item Value Reference Range Interpretation Comments PHOSPHORUS (BEAKER) (test code = 3.7 mg/dL 2.3-4.7 604) Helmet Hat Puncher ID - SANIA [id number] 04:01:00 Test Item Value Reference Range Interpretation Comments MAGNESIUM (BEAKER) (test code = 1.8 mg/dL 1.6-2.6 627) Helmet Hat Puncher ID - SANIA MBLOOD GAS, [id number] 03:44:00 Test Item Value Reference Range Interpretation [...] (test code = 1819) 40.0 % CALCIUM, [id number] 03:20:00 Test Item Value Reference Range Interpretation Comments CALCIUM IONIZED (BEAKER) (test 1.05 mmol/L 1.12-1.27 L code = 698) PH, BLOOD (BEAKER) (test code = 7.36 1810) OXYGEN SATURATION, [id number] 03:16:00 Test Item Value Reference Range Interpretation Comments O2 SATURATION (MEASURED) (BEAKER) 55.9 % (test code = 1455) RAD, CHEST, 1 VIEW, NON [id number] 02:29:00Reason for exam:->s/p ACBShould this be performed at the bedside?->YesFINAL REPORT CLINICAL INDICATION: Postop Comparison: 12/29/2019 The cardiomedi astinal contours are stable. The lung volumes remain low. Central pulmonary vascular congestion and bilateral parenchymal opacities are unchanged. There is no pneumothorax. Support lines are stable. Signed: Evie Alvares MDReport Verified Date/Time: 12/30/2019 02:29:11 POCT-GLUCOSE [id number] 02:26:00 Test Item Value Reference Range Interpretation Comments POC-GLUCOSE METER 227 mg/dL 70-110 H : [facility] (BE[facility]ER[facility] (test code = [facility], 1538) 110[address]: Helmet Hat Puncher/Techni bushra ID = [id number] for YULIA DA ALLA LACTIC ACID, [id number] 01:10:00 Test Item Value Reference Range Interpretation Comments LACTATE BLOOD ARTERIAL (2) 3.9 mmol/L 0.5-2.2 H (BEAKER) (test code = 2874) Helmet Hat Puncher ID - SANIA MBLOOD GAS, [id number] 01:04:00 Test Item Value Reference Range Interpretation [...] (test code = 1819) 40.0 % GLUCOSE-STAT [id number] 01:04:00 Test Item Value Reference Range Interpretation Comments GLUCOSE RANDOM (BEAKER) (test code 226 mg/dL 70-110 H = 652) HGB/HCT (H&H) - STAT [id number] 01:04:00 Test Item Value Reference Range Interpretation Comments HEMOGLOBIN (BEAKER) (test code = 8.2 g/dL 13.0-16.8 L 410) HEMATOCRIT (BEAKER) (test code = 24.0 % 40.0-50.0 L 411) SODIUM NA-STAT [id number] 01:03:00 Test Item Value Reference Range Interpretation Comments SODIUM (BEAKER) (test code = 381) 136 meq/L 136-145 POTASSIUM-STAT [id number] 01:03:00 Test Item Value Reference Range Interpretation Comments POTASSIUM (BEAKER) (test code = 4.5 meq/L 3.6-5.5 379) POCT-GLUCOSE [id number] 00:20:00 Test Item Value Reference Range Interpretation Comments POC-GLUCOSE METER 228 mg/dL 70-110 H : TESTED A T [facility] 6720 (BEAKER) (test code = [facility], 1538) 187[address]: Helmet Hat Puncher/Techni bushra ID = [id number] for YULIA AMYALLA GEORGE LACTIC ACID, [id number] 22:13:00 Test Item Value Reference Range Interpretation Comments LACTATE BLOOD 4.5 mmol/L 0.5-2.2 HH Specimen sligh tly ARTERIAL (2) (BEAKER) hemoly zed (test code = 2874) Helmet Hat Puncher ID - BSPOCT-GLUCOSE [id number] 22:07:00 Test Item Value Reference Range Interpretation Comments POC-GLUCOSE METER 237 mg/dL 70-110 H : TESTED A T [facility] 6720 (BEAKER) (test code = [facility] [place], 1538) [address]: Helmet Hat Puncher/Techni bushra ID = [id number] for YULIA CKERALLA POCT-GLUCOSE [id number] 22:06:00 Test Item Value Reference Range Interpretation Comments POC-GLUCOSE METER 235 mg/dL 70-110 H : TESTED A T [facility] 6720 (BEAKER) (test code = [facility] [place], 1538) [address]: Helmet Hat Puncher/Techni bushra ID = [id number] for ALLA FALK LACTIC ACID, [id number] 19:00:00 Test Item Value Reference Range Interpretation Comments LACTATE BLOOD ARTERIAL (2) 4.2 mmol/L 0.5-2.2 HH (BEAKER) (test code = 2874) Helmet Hat Puncher ID - BSBASIC METABOLIC [id number] 18:58:00 Test Item Value Reference Range Interpretation [...] 697) EGFR (BEAKER) (test 66 mL/min/1.73 ESTIMA STEPHANY GFR IS code = 1092) sq m NOT ACCURATE CREATININE CLEARANCE IN PREDICTING GLOMERULAR FILTRATION RATE . ESTIMATED GFR I S NOT APPLICABLE FOR DIALYSIS PATIEN TS. Helmet Hat Puncher ID - [id number] 18:48:00 Test Item Value Reference Range Interpretation Comments MAGNESIUM (BEAKER) (test code = 2.1 mg/dL 1.6-2.6 627) Helmet Hat Puncher ID - BSBLOOD GAS, [id number] 18:33:00 Test Item Value Reference Range Interpretation [...] (test code = 1819) 40.0 % CALCIUM, [id number] 18:33:00 Test Item Value Reference Range Interpretation [...] 0-0 (BEAKER) (test code = 413) POCT-GLUCOSE [id number] 18:21:00 Test Item Value Reference Range Interpretation Comments POC-GLUCOSE METER 209 mg/dL 70-110 H : TESTED A T [facility] 6720 (BEAKER) (test code = [facility], 1538) [address]: Helmet Hat Puncher/Techni bushra ID = [id number] for DEVAUGHN JAVIER PLATELET AGGREGATION: FUNCTION [id number] 18:20:00 Test Item Value Reference Range Interpretation Comments [id number] Freddy Sharp M.D. (BEAKER) (test code = (electonic signature) 2622) PLATELET COUNT AGG 194 K/CU MM 150-450 (BEAKER) (test code = 2656) ADP (BEAKER) (test code 3 % 62-100 L = 4654) PLATELET RICH 223 k/cu mm 200-300 PLASMA(BEAKER) (test code = 2134) PLATELET FUNCTION Pattern of SCREEN INTERPRETATION disaggregation present (BEAKER) (test code = with ADP which may be 4655) characteristic of P2Y12 inhibitor effect. Correlation with medication history is required. Platelet Function Screen results may be falsely low with platelet counts<75,000/cu mm.Helmet Hat Puncher ID- [id number] AGGREGATION: FUNCTION SCREEN 2019-12-29 18:16:00 Test Item Value Reference Range Interpretation Comments [id number] Freddy Sharp M.D. (BEAKER) (test code = [...] may be falsely low with platelet counts<75,000/cu mm.Helmet Hat Puncher ID- [id number]-GLUCOSE [id number] 18:12:00 Test Item Value Reference Range Interpretation Comments POC-GLUCOSE METER 210 mg/dL 70-110 H : TESTED Ho T [facility] 6720 (BEAKER) (test code = [facility] [place], 1538) [address]: Helmet Hat Puncher/Techni bushra ID = [id number] for DEVAUGHN JAVIER SODIUM NA-STAT [id number] 16:40:00 Test Item Value Reference Range Interpretation Comments SODIUM (BEAKER) (test code = 381) 136 meq/L 136-145 POTASSIUM-STAT [id number] 16:40:00 Test Item Value Reference Range Interpretation Comments POTASSIUM (BEAKER) (test code = 4.0 meq/L 3.6-5.5 379) BLOOD GAS, [id number] 16:40:00 Test Item Value Reference Range Interpretation [...] (test code = 1819) 40.0 % GLUCOSE-STAT [id number] 16:40:00 Test Item Value Reference Range Interpretation Comments GLUCOSE RANDOM (BEAKER) (test code 217 mg/dL 70-110 H = 652) HGB/HCT (H&H) - STAT [id number] 16:40:00 Test Item Value Reference Range Interpretation Comments HEMOGLOBIN (BEAKER) (test code = 9.4 g/dL 13.0-16.8 L 410) HEMATOCRIT (BEAKER) (test code = 28.0 % 40.0-50.0 L 411) HEMOGLOBIN [id number] 16:12:00 Test Item Value Reference Range Interpretation Comments HEMOGLOBIN A1C (BEAKER) (test code = 7.7 % 4.3-6.1 H 368) (CELLAVISION MANUAL DIFF)2019-12-29 15:25:00 Test Item Value Reference [...] CONCENTRATION Adequate (CELLAVISION)(BEAKER) (test code = 3438) Helmet Hat Puncher ID - Ga comments: Slide comments:POCT-GLUCOSE METER 2019-12-29 15:23:00 Test Item Value Reference Range Interpretation Comments POC-GLUCOSE METER 203 mg/dL 70-110 H : TESTED A T [facility] 6720 (BEAKER) (test code = [facility], 1538) [address]: Helmet Hat Puncher/Techni bushra ID = [id number] for DEVAUGHN JAVIER BLOOD GAS, [id number] 15:16:00 Test Item Value Reference Range Interpretation [...] (test code = 1819) 40.0 % GLUCOSE-STAT [id number] 15:16:00 Test Item Value Reference Range Interpretation Comments GLUCOSE RANDOM (BEAKER) (test code 199 mg/dL 70-110 H = 652) HGB/HCT (H&H) - STAT [id number] 15:16:00 Test Item Value Reference Range Interpretation Comments HEMOGLOBIN (BEAKER) (test code = 9.7 g/dL 13.0-16.8 L 410) HEMATOCRIT (BEAKER) (test code = 29.0 % 40.0-50.0 L 411) SODIUM NA-STAT [id number] 15:14:00 Test Item Value Reference Range Interpretation Comments SODIUM (BEAKER) (test code = 381) 138 meq/L 136-145 POTASSIUM-STAT [id number] 15:14:00 Test Item Value Reference Range Interpretation Comments POTASSIUM (BEAKER) (test code = 4.0 meq/L 3.6-5.5 379) CBC W/PLT COUNT & AUTO [id number] 15:13:00 Test Item Value Reference Range Interpretation [...] GRANULOCYTES-RELATIVE PERCENT (BEAKER) (test code = 2801) LIPID [id number] 14:51:00 Test Item Value Reference Range Interpretation Comments TRIGLYCERIDES (BEAKER) (test code = 229 mg/dL 540) CHOLESTEROL (BEAKER) (test code = 143 mg/dL 631) HDL CHOLESTEROL (BEAKER) (test code 27 mg/dL = 976) LDL CHOLESTEROL CALCULATED (BEAKER) 70 mg/dL (test code = 633) Triglyceride Reference Range: Low Risk <150 Borderline 150-199 High Risk 200-499 Very High Risk >=500Cholesterol Reference Range: Low Risk <200 Borderline 200-239 High Risk >240HDL Cholesterol Reference Range: Low Risk >=60 High Risk <40LDL Cholesterol Reference Range: Optimal <100 Near Optimal 100-129 Borderline 130-159 High 160-189 Very High >=190 Helmet Hat Puncher ID - NTPSpecimen slightly lipemicPOCT-GLUCOSE METER 2019-12-29 14:23:00 Test Item Value Reference Range Interpretation Comments POC-GLUCOSE METER 152 mg/dL 70-110 H : TESTED A T [facility] 6720 (BEAKER) (test code = [facility], 1538) [address]: Helmet Hat Puncher/Techni bushra ID = [id number] for Farhana Carlos [id number] 14:21:00 Test Item Value Reference Range Interpretation Comments PHOSPHORUS (BEAKER) (test code = 4.4 mg/dL 2.3-4.7 604) Helmet Hat Puncher ID - [id number] 14:21:00 Test Item Value Reference Range Interpretation Comments MAGNESIUM (BEAKER) (test code = 2.3 mg/dL 1.6-2.6 627) Helmet Hat Puncher ID - NTPCOMPREHENSIVE METABOLIC [id number] 14:21:00 Test Item Value Reference Range Interpretation [...] 347) EGFR (BEAKER) (test 70 mL/min/1.73 ESTIMA STEPHANY GFR IS code = 1092) sq m NOT ACCURATE CREATININE CLEARANCE IN PREDICTING GLOMERULAR FILTRATION RATE . ESTIMATED GFR I S NOT APPLICABLE FOR DIALYSIS PATIEN TS. Helmet Hat Puncher ID - NTPSpecimen slightly lipemicTHROMBOELASTOGRAPH (TEG)2019-12-29 14:20:00 Test Item Value Reference Range [...] % 0.0-5.0 code = 1414) LACTIC ACID, [id number] 14:12:00 Test Item Value Reference Range Interpretation Comments LACTATE BLOOD ARTERIAL (2) 2.8 mmol/L 0.5-2.2 H (BEAKER) (test code = 2874) Helmet Hat Puncher ID - [id number] 14:08:00 Test Item Value Reference Range Interpretation Comments FIBRINOGEN LEVEL (BEAKER) (test 243 mg/dl 225-434 code = 658) 6 hours after starting heparin infusion and as indicated per sliding scale [id number] 14:08:00 Test Item Value Reference Range Interpretation [...] heparin infusion and as indicated per sliding [id number] 14:08:00 Test Item Value Reference Range Interpretation Comments PARTIAL THROMBOPLASTIN TIME 26.4 seconds 22.5-36.0 (BEAKER) (test code = 760) PROTHROMBIN [id number] 14:07:00 Test Item Value Reference Range Interpretation [...] mechanical heart valves.RAD, CHEST, 1 VIEW, NON [id number] 13:58:00Reason for exam:->s/p ACB, intubatedShould this be [...] Additional findings: None. Signed: Rosa M Gibson MDReport Verified Date/Time: 12/29/2019 13:58:16 Reading Location: [facility] Radio logy Reading Room CBC W/PLT COUNT & AUTO [id number] 13:56:00 Test Item Value Reference Range Interpretation [...] (BEAKER) (test code = 2801) BLOOD GAS, [id number] 13:21:00 Test Item Value Reference Range Interpretation [...] code = 1819) 50.0 % OXYGEN SATURATION, [id number] 13:21:00 Test Item Value Reference Range Interpretation Comments O2 SATURATION (MEASURED) (BEAKER) 74.3 % (test code = 1455) [id number] 12:27:00 Test Item Value Reference Range Interpretation Comments ACTIVATED CLOTTING TIME 98 sec : 74 -137 seconds, (BEAKER) (test code = Baseli ne: TESTED AT 441) [address], [facility] 30: Helmet Hat Puncher/Techni bushra ID = [id number] for ZARAGOZA Y, HARISH [id number] 12:27:00 Test Item Value Reference Range Interpretation Comments ACTIVATED CLOTTING TIME 516 sec : 74 -137 seconds, (BEAKER) (test code = Baseli ne: TESTED AT 441) [address], [facility] 30: Helmet Hat Puncher/Techni bushra ID = [id number] for ZARAGOZA Y, HARISH [id number] 12:27:00 Test Item Value Reference Range Interpretation Comments ACTIVATED CLOTTING TIME 483 sec : 74 -137 seconds, (BEAKER) (test code = Baseli ne: TESTED AT 441) [address], [facility] 30: Helmet Hat Puncher/Techni bushra ID = [id number] for ZARAGOZA Y, HARISH [id number] 12:27:00 Test Item Value Reference Range Interpretation Comments ACTIVATED CLOTTING TIME 643 sec : 74 -137 seconds, (BEAKER) (test code = Baseli ne: TESTED AT 441) [address], [facility] 30: Helmet Hat Puncher/Techni bushra ID = [id number] for ZARAGOZA Y, HARISH [id number] 12:27:00 Test Item Value Reference Range Interpretation Comments ACTIVATED CLOTTING TIME 103 sec : 74 -137 seconds, (BEAKER) (test code = Baseli ne: TESTED AT 441) [address], [facility] 30: Helmet Hat Puncher/Techni bushra ID = [id number] for ZARAGOZA Y, HARISH BLOOD GAS, [id number] 12:08:00 Test Item Value Reference Range Interpretation [...] (test code = 1819) 100.0 % GLUCOSE-STAT [id number] 12:08:00 Test Item Value Reference Range Interpretation Comments GLUCOSE RANDOM (BEAKER) (test code 203 mg/dL 70-110 H = 652) HGB/HCT (H&H) - STAT [id number] 12:08:00 Test Item Value Reference Range Interpretation [...] H (test code = 1413) SODIUM NA-STAT [id number] 12:07:00 Test Item Value Reference Range Interpretation Comments SODIUM (BEAKER) (test code = 381) 135 meq/L 136-145 L POTASSIUM-STAT [id number] 12:07:00 Test Item Value Reference Range Interpretation Comments POTASSIUM (BEAKER) (test code = 4.0 meq/L 3.6-5.5 379) CALCIUM, [id number] 12:07:00 Test Item Value Reference Range Interpretation Comments CALCIUM IONIZED (BEAKER) (test 1.17 mmol/L 1.12-1.27 code = 698) PH, BLOOD (BEAKER) (test code = 7.33 1810) PROTHROMBIN [id number] 11:39:00 Test Item Value Reference Range Interpretation [...] INR is2.5-3.5 for patients wiht mechanical heart valves.[id number] 11:39:00 Test Item Value Reference Range Interpretation Comments PARTIAL THROMBOPLASTIN TIME 25.9 seconds 22.5-36.0 (BEAKER) (test code = 760) [id number] 11:39:00 Test Item Value Reference Range Interpretation Comments FIBRINOGEN LEVEL (BEAKER) (test 202 mg/dl 225-434 L code = 658) CALCIUM, [id number] 11:33:00 Test Item Value Reference Range Interpretation Comments CALCIUM IONIZED (BEAKER) (test 1.15 mmol/L 1.12-1.27 code = 698) PH, BLOOD (BEAKER) (test code = 7.33 1810) BLOOD GAS, [id number] 11:33:00 Test Item Value Reference Range Interpretation Comments PH ARTERIAL (BEAKER) (test code = 7.36 7.35-7.45 383) PCO2 ARTERIAL (BEAKER) (test code 42 mmHg 35-45 = 384) PO2 ARTERIAL (BEAKER) (test code 295 mmHg 80-90 H = 385) O2 SATURATION ARTERIAL (BEAKER) 99.7 % 96.0-97.0 H (test code = 386) HCO3 ARTERIAL (BEAKER) (test code 23 mmol/L -29 = 388) BASE EXCESS ARTERIAL (BEAKER) -2.6 mmol/L -2.0-3.0 L (test code = 387) PATIENT TEMPERATURE (BEAKER) 35.3 C (test code = 1818) FIO2 (BEAKER) (test code = 1819) 100.0 % GLUCOSE-STAT [id number] 11:33:00 Test Item Value Reference Range Interpretation Comments GLUCOSE RANDOM (BEAKER) (test code 210 mg/dL 70-110 H = 652) HGB/HCT (H&H) - STAT [id number] 11:33:00 Test Item Value Reference Range Interpretation Comments HEMOGLOBIN (BEAKER) (test code = 7.8 g/dL 13.0-16.8 L 410) HEMATOCRIT (BEAKER) (test code = 23.0 % 40.0-50.0 L 411) SODIUM NA-STAT [id number] 11:31:00 Test Item Value Reference Range Interpretation Comments SODIUM (BEAKER) (test code = 381) 135 meq/L 136-145 L POTASSIUM-STAT [id number] 11:31:00 Test Item Value Reference Range Interpretation Comments POTASSIUM (BEAKER) (test code = 4.2 meq/L 3.6-5.5 379) PLATELET [id number] 11:29:00 Test Item Value Reference Range Interpretation Comments PLATELET COUNT (BEAKER) (test 200 K/CU MM 150-450 code = 756) Helmet Hat Puncher ID - 6000BLOOD GAS, [id number] 11:08:00 Test Item Value Reference Range Interpretation [...] code = 1819) 100.0 % SODIUM NA-STAT [id number] 11:08:00 Test Item Value Reference Range Interpretation Comments SODIUM (BEAKER) (test code = 381) 134 meq/L 136-145 L GLUCOSE-STAT [id number] 11:08:00 Test Item Value Reference Range Interpretation Comments GLUCOSE RANDOM (BEAKER) (test code 222 mg/dL 70-110 H = 652) HGB/HCT (H&H) - STAT [id number] 11:08:00 Test Item Value Reference Range Interpretation Comments HEMOGLOBIN (BEAKER) (test code = 7.9 g/dL 13.0-16.8 L 410) HEMATOCRIT (BEAKER) (test code = 23.0 % 40.0-50.0 L 411) CALCIUM, [id number] 11:08:00 Test Item Value Reference Range Interpretation Comments CALCIUM IONIZED (BEAKER) (test 0.98 mmol/L 1.12-1.27 L code = 698) PH, BLOOD (BEAKER) (test code = 7.34 1810) POTASSIUM-STAT [id number] 11:07:00 Test Item Value Reference Range Interpretation Comments POTASSIUM (BEAKER) (test code = 4.0 meq/L 3.6-5.5 379) HEMOGLOBIN [id number] 11:05:00 Test Item Value Reference Range Interpretation Comments HEMOGLOBIN A1C (BEAKER) (test code = 7.5 % 4.3-6.1 H 368) POTASSIUM-STAT [id number] 10:26:00 Test Item Value Reference Range Interpretation Comments POTASSIUM (BEAKER) (test code = 4.7 meq/L 3.6-5.5 379) BLOOD GAS, [id number] 10:26:00 Test Item Value Reference Range Interpretation [...] code = 1819) 70.0 % SODIUM NA-STAT [id number] 10:26:00 Test Item Value Reference Range Interpretation Comments SODIUM (BEAKER) (test code = 381) 133 meq/L 136-145 L GLUCOSE-STAT [id number] 10:26:00 Test Item Value Reference Range Interpretation Comments GLUCOSE RANDOM (BEAKER) (test code 229 mg/dL 70-110 H = 652) HGB/HCT (H&H) - STAT [id number] 10:26:00 Test Item Value Reference Range Interpretation Comments HEMOGLOBIN (BEAKER) (test code = 8.2 g/dL 13.0-16.8 L 410) HEMATOCRIT (BEAKER) (test code = 24.0 % 40.0-50.0 L 411) POTASSIUM-STAT [id number] 10:01:00 Test Item Value Reference Range Interpretation Comments POTASSIUM (BEAKER) (test code = 3.9 meq/L 3.6-5.5 379) BLOOD GAS, [id number] 10:01:00 Test Item Value Reference Range Interpretation [...] code = 1819) 80.0 % SODIUM NA-STAT [id number] 10:01:00 Test Item Value Reference Range Interpretation Comments SODIUM (BEAKER) (test code = 381) 134 meq/L 136-145 L GLUCOSE-STAT [id number] 10:01:00 Test Item Value Reference Range Interpretation Comments GLUCOSE RANDOM (BEAKER) (test code 210 mg/dL 70-110 H = 652) HGB/HCT (H&H) - STAT [id number] 10:01:00 Test Item Value Reference Range Interpretation Comments HEMOGLOBIN (BEAKER) (test code = 8.2 g/dL 13.0-16.8 L 410) HEMATOCRIT (BEAKER) (test code = 24.0 % 40.0-50.0 L 411) CALCIUM, [id number] 08:20:00 Test Item Value Reference Range Interpretation Comments CALCIUM IONIZED (BEAKER) (test 1.12 mmol/L 1.12-1.27 code = 698) PH, BLOOD (BEAKER) (test code = 7.36 1810) BLOOD GAS, [id number] 08:19:00 Test Item Value Reference Range Interpretation [...] (test code = 1819) 100.0 % GLUCOSE-STAT [id number] 08:19:00 Test Item Value Reference Range Interpretation Comments GLUCOSE RANDOM (BEAKER) (test code 200 mg/dL 70-110 H = 652) HGB/HCT (H&H) - STAT [id number] 08:19:00 Test Item Value Reference Range Interpretation Comments HEMOGLOBIN (BEAKER) (test code = 12.9 g/dL 13.0-16.8 L 410) HEMATOCRIT (BEAKER) (test code = 38.0 % 40.0-50.0 L 411) SODIUM NA-STAT [id number] 08:18:00 Test Item Value Reference Range Interpretation Comments SODIUM (BEAKER) (test code = 381) 138 meq/L 136-145 POTASSIUM-STAT [id number] 08:18:00 Test Item Value Reference Range Interpretation Comments POTASSIUM (BEAKER) (test code = 3.5 meq/L 3.6-5.5 L 379) RAD, CHEST, 1 VIEW, NON [id number] 06:14:00Reason for exam:->pre op screenShould this be performed at the [...] Evie Alvares MDReport Verified Date/Time: 12/29/2019 06:14:22 CBC (HEMOGRAM ONLY)2019-12-29 05:55:00 Test Item Value Reference [...] = 413) RAD, CHEST, 1 VIEW, NON [id number] 03:04:00Reason for exam:->SOBShould this be performed at the bedside?->YesFINAL REPORT History: Shortness of breath. Comparison: None. Findings: 2 frontal images of the chest is submitted. The cardiomediastinal contours are unremarkable. There is no focal consolidation, pneumothorax, large pleural effusion or evidence of overt pulmonary edema. There is no acute bony abnormality. Impression: No acute abnormality. Signed: Evie Alvares MDReport Verified Date/Time: 12/29/2019 03:04:51 [id number] 23:45:00 Test Item Value Reference Range Interpretation Comments ACTIVATED CLOTTING TIME 76 sec : 74 -137 seconds, (BEAKER) (test code = Baseli ne: TESTED AT 441) [facility] [address] [facility] [place], [address]: Helmet Hat Puncher/Techni bushra ID = [id number] for aKm Person SARS-COV2/RT-PCR ([facility])2019-12-28 20:30:00 Test Item Value Reference Range Interpretation Comments SARS-COV2/RT-PCR (test Not Detected Not Detected, Negative code = 2755043) SARS-COV-[address] [facility] (test code = 4224368) Negative results do not preclude SARS-CoV-2 infection [...] of the Act.Fact Sheet for Healthcare Pro viders:https://www.[employer]/Documents/Xpert%20Xpress%20SARS%20CoV-2/Fact%20Sh eets/302-3802%63MCFO-UWP-7%20HEALTHCARE%20PROVIDERS%20FACT%20SHEET.pdfFact Sheet for Healthcare Patients:https://www.[employer]/Documents/Xpert%20Xpress%20SARS%20CoV-2/Fact%20Sheets/302-3801%20SARS-COV -2%20PATIENT%20FACT%20SHEET.pdfPerforming Laboratory:[facility] [place] [address].[place], [place] [id number] 19:48:00 Test Item Value Reference Range Interpretation [...] failure, acidosis, acute neurological disease, and persistent tachyarrhythmia.Helmet Hat Puncher ID - [id number] 19:42:00 Test Item Value Reference Range Interpretation Comments MAGNESIUM (BEAKER) 1.8 mg/dL 1.6-2.6 Specimen slightly (test code = 627) hemolyzed Helmet Hat Puncher ID - BSBASIC METABOLIC [id number] 19:42:00 Test Item Value Reference Range Interpretation [...] 697) EGFR (BEAKER) (test 71 mL/min/1.73 ESTIMA STEPHANY GFR IS code = 1092) sq m NOT ACCURATE CREATININE CLEARANCE IN PREDICTING GLOMERULAR FILTRATION RATE . ESTIMATED GFR I S NOT APPLICABLE FOR DIALYSIS PATIEN TS. Helmet Hat Puncher ID - BSLIPID [id number] 19:42:00 Test Item Value Reference Range Interpretation [...] Borderline 130-159 High 160-189 Very High >=190 Helmet Hat Puncher ID - [id number] 19:41:00 Test Item Value Reference Range Interpretation [...] heart valves.Prior to initiating heparinPrior to initiating [id number] 19:41:00 Test Item Value Reference Range Interpretation [...] WBC 0-0 (BEAKER) (test code = 413) [id number] 22:00:00 Test Item Value Reference Range Interpretation Comments GLUBED (test code = GLUBED) 238 mg/dL 60-125 H - XR KNEE 1 OR 2 V [id number] 11:25:00 Patient Name: AGUEDA COOK Unit No: [id number] EXAMS: CPT CODE: [id number] XR KNEE 1 OR 2 [place] LT [address] LEFT KNEE 2 VIEWS PORTABLE COMMENT: The patient is status post joint replacement which is articulating normally. at 1125 Reported and signed by: Igor Vallejo MD CC: Beverly Escobar MD Technologist: ARMANDO PORRAS. RT(R) Transcribed D/ (0122) t.IHSANR.JCL [facility] NAME: AGUEDA COOK [address] [facility] PHYS: YANNSunny Beverly Vargas : 1955 AGE: 63 SEX: M [place] [address] LOC: Y.319 A PHONE #: [phone] EXAM DATE: 07/28/2019 STATUS: ADM IN FAX #: [phone] RAD #: D/C DT PAGE 1 Signed Report Patient Name: AGUEDA COOK Unit No: [id number] EXAMS: CPT CODE: [id number] XR KNEE 1 OR 2 V LT [address]24 <Continued> Orig Print D/T: S: 07/29/2019 (0087) [facility] NAME: AGUEDA COOK [address] [facility] PHYS: YANNSunny Beverly Vargas : 1955 AGE: 63 SEX: M [place] [address] LOC: Y.319 A PHONE #: [phone] EXAM DATE: 07/28/2019 STATUS: ADM IN FAX #: [phone] RAD #: D/C DT PAGE 2 Signed ReportGLUBED 2019-07-29 08:39:00 Test Item Value Reference Range Interpretation Comments GLUBED (test code = GLUBED) 248 mg/dL 60-125 H BASIC METABOLIC [id number] 06:33:00 Test Item Value Reference Range Interpretation [...] RATE (test code = GFR) mL/mi n/1.73 [id number] Range:Healthy Adults >90 mL/min/1.73 m2 For Chronic Kidney Disease: St age II Mild Decrease in GFR 60-90 St age III Moderate Decrease in GFR 30-59 Stage IV Severe Decre ase in GFR 15- 29 Stage V Kidney Failure <15 CREATININE (test code 1.23 mg/dL 0.55-1.30 N = CREAT) CALCIUM (test code = 7.6 mg/dL 8.2-10.1 L CA) HGB [id number] 05:49:00 Test Item Value Reference Range Interpretation Comments HEMOGLOBIN (test code = HGB) 11.8 g/dL 12-16 L HEMATOCRIT (test code = HCT) 35.8 % 37-47 L [id number] 05:26:00 Test Item Value Reference Range Interpretation Comments GLUBED (test code = GLUBED) 200 mg/dL 60-125 H [id number] 20:07:00 Test Item Value Reference Range Interpretation Comments GLUBED (test code = GLUBED) 259 mg/dL 60-125 H [id number] 07:39:00 Test Item Value Reference Range Interpretation [...] the method used. H GBA1c results from nilay keene HbSS, HbCC, and HbSc must be interpreted with cautiongiven th e pathological pr ocesses, including anemi a,increased red cell turnov er, transfusion req uirements, thatadversely i mpact HGBA1c as a marker of long-term glycemiccontrol . Alternative for ms of testing such as fructosaminesho uld be considered for these patients.DONE A T: [facility] [address] [place] [address] GLYCOSYLATED HEMOGLOBIN (HA1C)2019-07-12 21:32:00 Test Item Value Reference Range Interpretation Comments GLYCOSYLATED 6.8 % 4.8-5.9 H Any condition t hat shortens HEMOGLOBIN (HA1C) erythocyte survival or (test code = GLYHGB) decreas esmean erythrocyte age (e.g., moises very from acute blood los s,hemolytic anemia) will fa lsely lower HGBA1c resultsr egardless of the method used . HGBA1c results from pa naomiith HbSS, HbCC, and HbSc must be interpreted with cautiongiven th e pathological pr ocesses, including anemi a,increased red cell turnov er, transfusion req uirements, thatadversely i mpact HGBA1c as a marker of long-term glycemiccontrol . Alternative for ms of testing such as fructosaminesho uld be considered for these patients. PROTHROMBIN [id number] 20:30:00 Test Item Value Reference Range Interpretation [...] Patient is on Heparin Drip? NOTHROMBOPLASTIN TIME [id number] 20:30:00 Test Item Value Reference Range Interpretation Comments PTT ACTIVATED (test code = APTT) 32.9 secs 24.9-37.0 N SPECIMEN COMMENT: PATIENT ALSO ON PLAVIXIS PATIENT ON ANTICOAGULANTS ? YLIST ANTICOAGULANT/ANTI PLT MEDICATION : AspirinHas Lab been notified if Patient is on Heparin Drip? NOCOMPREHENSIVE METABOLIC [id number] 20:25:00 Test Item Value Reference Range Interpretation [...] RATE (test code = GFR) mL/mi n/1.73 [id number] Range:Healthy Adults >90 mL/min/1.73 m2 For Chronic [...] TOTAL (test code = ALKP) CBC W/AUTO [id number] 17:54:00 Test Item Value Reference Range Interpretation [...] - XR KNEE 1 OR 2 V [id number] 12:44:00 Patient Name: AGUEDA COOK Unit No: [id number] EXAMS: CPT CODE: [id number] XR KNEE 1 OR 2 [place] [address] RIGHT KNEE 2 VIEWS PORTABLE COMMENT: The patient is status post joint replacement which is articulating normally. at 1244 Reported and signed by: Igor Vallejo MD CC: Beverly Escobar MD Technologist: DAVION PEREZ (RT.R) Transcribed D/ (1244) t.SDR.JCL [facility] NAME: AGUEDA COOK [address] [facility] PHYS: Beverly Vyas : 1955 AGE: 63 SEX: M [place], [place] [address] LOC: Y.520 A PHONE #: [phone] EXAM DATE: 01/28/2019 STATUS: DIS IN FAX #: [phone] #: D/C DT 01/29/2019 PAGE 1 Signed Report Patient Name: AGUEDA COOK Unit No: [id number] EXAMS: CPT CODE: [id number] XR KNEE 1 OR 2 [place] RT [address] <Continued> Orig Print D/T: S: 01/31/2019 (1247) [facility] NAME: AGUEDA COOK [address] [facility] [address] PHYS: YANN.Jesus Manuel - EscobarBeverly mancuso : 1955 AGE: 63 SEX: M [place], [place] [address] LOC: Karen Teague PHONE #: [phone] EXAM DATE: 01/28/2019 STATUS: DIS IN FAX #: [phone] RAD #: D/C DT 01/29/2019 PAGE 2 Signed ReportBASIC METABOLIC [id number] 07:38:00 Test Item Value Reference Range Interpretation [...] RATE (test code = GFR) mL/mi n/1.73 [id number] Range:Healthy Adults >90 mL/min/1.73 m2 For Chronic Kidney Disease: St age II Mild Decrease in GFR 60-90 St age III Moderate Decrease in GFR 30-59 Stage IV Severe Decre ase in GFR 15- 29 Stage V Kidney Failure <15 CREATININE (test code 1.35 mg/dL 0.55-1.30 H = CREAT) CALCIUM (test code = 7.8 mg/dL 8.2-10.1 L CA) HGB [id number] 06:32:00 Test Item Value Reference Range Interpretation Comments HEMOGLOBIN (test code = HGB) 12.2 g/dL 12-16 N HEMATOCRIT (test code = HCT) 37.1 % 37-47 N [id number] 05:24:00 Test Item Value Reference Range Interpretation Comments GLUBED (test code = GLUBED) 149 mg/dL 60-125 H [id number] 20:47:00 Test Item Value Reference Range Interpretation Comments GLUBED (test code = GLUBED) 161 mg/dL 60-125 H [id number] 12:02:00 Test Item Value Reference Range Interpretation [...] the method used. H GBA1c results from nilay salgadoith HbSS, HbCC, and HbSc must be interpreted with cautiongiven th e pathological pr ocesses, including anemi a,increased red cell turnov er, transfusion req uirements, thatadversely i mpact HGBA1c as a marker of long-term glycemiccontrol . Alternative for ms of testing such as fructosaminesho uld be considered for these patients.DONE A T: [facility] [address] [place] [address] GLYCOSYLATED HEMOGLOBIN (HA1C)2019-01-17 13:49:00 Test Item Value Reference Range Interpretation Comments GLYCOSYLATED 6.2 % 4.8-5.9 H Any condition t hat shortens HEMOGLOBIN (HA1C) erythocyte survival or (test code = GLYHGB) decreas esmean erythrocyte age (e.g., moises very from acute blood los s,hemolytic anemia) will fa lsely lower HGBA1c resultsr egardless of the method used . HGBA1c results from nilay keene HbSS, HbCC, and HbSc must be interpreted with cautiongiven th e pathological pr ocesses, including anemi a,increased red cell turnov er, transfusion req uirements, thatadversely i mpact HGBA1c as a marker of long-term glycemiccontrol . Alternative for ms of testing such as fructosaminesho uld be considered for these patients. COMPREHENSIVE METABOLIC [id number] 12:39:00 Test Item Value Reference Range Interpretation [...] RATE (test code = GFR) mL/mi n/1.73 [id number] Range:Healthy Adults >90 mL/min/1.73 m2 For Chronic [...] N TOTAL (test code = ALKP) PROTHROMBIN [id number] 12:33:00 Test Item Value Reference Range Interpretation [...] BLOOD, PT every other day NTHROMBOPLASTIN TIME [id number] 12:33:00 Test Item Value Reference Range Interpretation Comments PTT ACTIVATED (test code = APTT) 28.4 secs 24.9-37.0 N IS PATIENT ON ANTICOAGULANTS ? YLIST ANTICOAGULANT/ANTI PLT MEDICATION : Plavix (Anti-PLT)Has Lab been notified if Patient is on Heparin Drip? NOIf Yes, order CBC, OCCULT BLOOD, PT every other day NCBC W/AUTO [id number] 12:29:00 Test Item Value Reference Range Interpretation [...] % 0-0 N code = NRBC) URINALYSIS [id number] 12:27:00 Test Item Value Reference Range Interpretation [...] BACU) FEW /HPF NONE - XR FLUORO [id number] 10:43:00 Patient Name: AGUEDA COOK Unit No: [id number] EXAMS: CPT CODE: [id number] XR [place]UORO NDL [address] FLUOROSCOPICALLY GUIDED right prosthetic knee joint ASPIRATION [...] Ricardo Leonard Technologist: RT. Mendel(R) Transcribed D/ (8708) tCELINEGVG [facility] NAME: AGUEDA COOK[address] [facility] PHYS: Ricardo Patel Faby : 1955 AGE: 62 SEX: M [place] [address] LOC: [employer] PHONE #: [phone] EXAM DATE: 01/08/2018 STATUS: DEP [place] #: [phone] RAD #: D/C DT PAGE 1 Signed Report Patient Name: AGUEDA COOK Unit No: [id number] EXAMS: CPT CODE: [id number] XR FLUORO NDL 81833 <Continued> Orig Print D/T: S: 01/11/2018 (6232) [facility] NAME: AGUEDA COOK [address] [facility] PHYS: Ricardo Patel : 1955 AGE: 62 SEX: M [place], [place] [address] LOC: [employer] PHONE #: [phone] EXAM DATE: 01/08/2018 STATUS: DEP CLI FAX #: [phone] RAD #: D/C DT PAGE 2 Signed Report
--- NOTE | 2021-03-15 18:58 | RAD REPORT ---
EXAM DESCRIPTION: RAD - Chest Pa And Lat (2 Views) - 03/15/2021 6:52 pm CLINICAL HISTORY: Cough;SOB Chest pain. COMPARISON: <Comparisons> FINDINGS: The lungs are clear. The heart is upper limit of normal in size. No displaced fractures. S ternotomy wires noted. IMPRESSION: No acute or concerning finding suspected.
--- NOTE | 2021-03-15 21:14 | ER ---
Nurse's Notes [facility] Tra Name: Kumar Forman Age: 65 yrs Sex: Male : 1955 Arrival Date: 03/15/2021 Time: 16:45 Bed Waiting Private MD: Toribio Dowling H Diagnosis: Presentation: 03/15 17:56 Chief complaint: Patient states: Cough, congestion, headache starting 03/07 saw PCP kg received neb treatments and antibiotic and getting worse. Coronavirus screen: Client denies travel out of the [place] in the last 14 days. At this time, unable to obtain information related to travel outside the [place] Coronavirus screen: Client presents with at least one sign or symptom that may indicate coronavirus-19. Standard/surgical mask placed on the client. Provider contacted for isolation considerations. Ebola Screen: Patient negative for fever greater than or equal to 101.5 degrees Fahrenheit, and additional compatible Ebola Virus Disease symptoms Patient denies exposure to infectious person. Patient denies travel to an Ebola-affected area in the 21 days before illness onset. Initial Sepsis Screen: Does the patient meet any 2 criteria? HR > 90 bpm. No. Patient's initial sepsis screen is negative. Does the patient have a suspected source of infection?. Risk Assessment: Do you want to hurt yourself or someone else? Patient reports no desire to harm self or others. Onset of symptoms was March 07, 2021. 17:56 Method Of Arrival: Ambulatory kg 17:56 Acuity: STEF 3 kg Historical: - Allergies: 17:59 AZO Standard; kg 17:59 Iodine; kg 17:59 PENICILLINS; kg - Home Meds: 17:59 finasteride 5 mg Oral tab [Active]; aspirin 81 mg Oral TbEC 1 tab once daily [Active]; kg gabapentin 60mg Oral [Active]; glimepiride 4 mg Oral tab [Active]; metoprolol tartrate 37.5 mg Oral tab 1 tab once daily [Active]; fenofibrate 160 mg oral tab 1 tab once daily [Active]; metoprolol tartrate 37.5 mg Oral tab 1 tab once daily [Active]; torsemide 20 mg oral tab 1 tab once daily [Active]; gabapentin 600 mg oral tab 1 tab 3 times per day [Active]; glimepiride 4 mg Oral tab 1 tab once daily [Active]; Myrbetriq 50 mg oral Tb24 1 tab once daily [Active]; Trulicity 1.5 mg/0.5 mL subcutaneous pnij [Active]; Zegrid [Active]; Super B Complex-Vitamin C oral tab [Active]; montelukast 10 mg oral tab 1 tab once daily [Active]; atorvastatin 40 mg oral tab 1 tab once daily [Active]; - PMHx: 17:59 BPH; Diabetes - NIDDM; Cataracts; GERD; Myocardial infarction; Ulcers; kg 18:08 prostate sx x 3; kg - PSHx: 17:59 knee sx payal; CABG; Cholecystectomy; kg - Immunization history:: Client reports receiving the 2nd dose of the Covid vaccine, Date received: October 16, 2020 Client reports receiving the 1st dose of the Covid vaccine, September 20, 2020. - Social history:: Smoking status: Patient denies any tobacco usage or history of. Screenin:09 Abuse screen: Denies threats or abuse. Denies injuries from another. Nutritional kg screening: No deficits noted. Tuberculosis screening: No symptoms or risk factors identified. Fall Risk None identified. Vital Signs: 17:56 BP 147 / 89; Pulse 101; Resp 20; Temp 98.1(O); Pulse Ox 97% on R/A; Weight 130.63 kg kg (R); Height 5 ft. 7 in. (170.18 cm) (R); Pain 6/10; 17:56 Body Mass Index 45.11 (130.63 kg, 170.18 cm) kg ED Course: 16:45 Patient arrived in ED. mr 16:45 Toribio Dowling DO is Private Physician. mr 17:59 Triage completed. kg 18:09 Patient has correct armband on for positive identification. kg 18:52 XRAY Chest Pa And Lat (2 Views) In Process Unspecified. EDMS Administered Medications: No medications were administered Outcome: 21:14 Patient left the ED. kg Signatures: Dispatcher [employer] EDMS Leila Madrigal LavonTrista, RN RN kg
[2021-03-15 21:33] LABS: Absolute Lymphocytes (CBC) 1.8 K/uL (0.7-4.9); Basophils % 0.6 % (0-1.3); Hematocrit 49.3 % (39.6-49.0); Lymphocytes % 23.1 % (15.3-44.8); MPV 6.9 fL (7.6-11.3); RBC Red Blood Cell Count 5.51 M/uL (4.33-5.43)
[2021-03-15 21:36] LABS: Protime INR 0.98
[2021-03-15 21:42] VITALS: BP 147/89; TEMP 98.1; O2SAT 97
[2021-03-15 22:08] LABS: BUN Blood Urea Nitrogen 24 mg/dL (7-18); Bicarbonate 21 mmol/L (21-32); Sodium Level 133 mmol/L (136-145)
[2021-03-15 22:09] LABS: ALT/SGPT 33 U/L (12-78); AST/SGOT 25 U/L (15-37); Albumin 3.5 g/dL (3.4-5.0); Alkaline Phosphatase 79 U/L (45-117); Bilirubin Direct 0.1 mg/dL (0-0.2); Bilirubin Total 0.3 mg/dL (0.2-1.0); Magnesium 2.3 mg/dL (1.8-2.4); NT PRO-BNP 105 pg/mL (<125); Potassium 4.1 mmol/L (3.5-5.1); Protein, Total 8.1 g/dL (6.4-8.2); Troponin (Emerg Dept Use Only) < 0.02 ng/mL (0.0-0.045)
[2021-03-15 22:12] LABS: Glucose Level 555 mg/dL (74-106)
--- NOTE | 2021-03-17 08:03 | EKG ---
Test Date: 2021-03-15 Test Time: 18:19:58 Pattern Changer And Repairer: JOE MEASUREMENT RESULTS: Intervals: Rate: 101 NE: 198 QRSD: 96 QT: 366 QTc: 474 [place]: P: 49 NE: 198 QRS: 40 T: -12 INTERPRETIVE STATEMENTS: Sinus tachycardia Low voltage QRS Possible Inferior infarct, age undetermined Cannot rule out Anteroseptal infarct, age undetermined Abnormal ECG Compared to ECG 08/11/2020 19:01:37 Low QRS voltage now present Sinus rhythm no longer present Myocardial infarct finding still present Electronically Signed On 03-17-21 08:00:35 CDT by Donnell Harris
== END 2021-03-15 21:14 | disposition left against medical advice (07) ==
LOC: ER 16:42
DX: Z53.21 Procedure and treatment not carried out due to patient leaving prior to being seen by health care provider (principal); Z20.822 Contact with and (suspected) exposure to COVID-19
CPT/HCPCS: 93005; 87070; 85025; 80048; 36415; 83735; 85610; 80076; 87081; 84484; 83880; 87804 ×2; 71046; 99282; U0003

== ENCOUNTER 2021-07-30 06:24 | Day surgery (SDC) | payer BC ==
[2021-07-25 11:28] LABS: Absolute Lymphocytes (CBC) 1.4 K/uL (0.7-4.9); Basophils % 0.8 % (0-1.3); Hematocrit 48.9 % (39.6-49.0); MPV 6.7 fL (7.6-11.3); RBC Red Blood Cell Count 5.69 M/uL (4.33-5.43)
[2021-07-25 11:45] LABS: Potassium 4.1 mmol/L (3.5-5.1)
[2021-07-30] MEDS ORDERED: NA CHLORIDE 0.9% 1,000 ML ONE (06:57)
[2021-07-30] MEDS ORDERED: FENTANYL CITR 100 MCG/2 ML ONE (07:02)
[2021-07-30] MEDS ORDERED: MIDAZOLAM HCL 2 MG/2 ML INJ ONE (07:02)
[2021-07-30] MEDS ORDERED: propofoL 200 MG/20 ML VIAL IV ONE ×2 (07:02→07:50)
[2021-07-30] MEDS ORDERED: LIDOCAINE 1% MPF 5 ML VIAL ONE (07:02)
[2021-07-30] MEDS ORDERED: INSULIN -REGULAR HUMAN 50 UNIT/0.5 ML ML ONE (07:20)
[2021-07-30] MEDS ORDERED: KETOROLAC 30 MG/ML INJ ONE (07:51)
[2021-07-30] MEDS ORDERED: ONDANSETRON 4 MG/2 ML VIAL ONE (08:04)
[2021-07-30] MEDS ORDERED: MORPHINE 4 MG/ML SYR ONE (08:59)
[2021-07-30] MEDS ORDERED: CLINDAMYCIN 600MG/D5W 600 MG/50 ML BAG IV ONE (09:00)
[2021-07-30] MEDS ORDERED: Gentamicin Inj 280 MG in NA CHLORIDE 0.9% 100 ML IVPB ONE (09:00)
[2021-07-30] MEDS ORDERED: CODEINE 30MG/APAP 300MG TAB PO PRN (09:06)
[2021-07-30] MEDS ORDERED: OPIUM/BELLADONNA SUPPOS (30-16.2 MG) PR ONE ×2 (09:06→09:09)
[2021-07-30 09:36] VITALS: TEMP 97.7
--- NOTE | 2021-07-30 09:36 | OP ---
Surgeon: AKI ALVARES Preoperative Diagnoses: 1.Benign prostatic hypertrophy with lower urinary tract obstruction. 2.Detrusor instability/overactive bladder. Postoperative Diagnoses: 1.Benign prostatic hypertrophy with lower urinary tract obstruction. 2.Detrusor instability/overactive bladder. Principal Procedure: Cystoscopy and bipolar transurethral resection of the prostate. Indication For Procedure: Mr. 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 He underwent cystoscopic evaluation as an outpatient where residual lateral lobar overlapping hypertrophy was noted within the apical mid aspect of his prostati c urethra and the recommendation was to improve his ability to void in terms of flow and stream recog nizing we would need to manage the overactivity continually as the patient is already on a combinatio n of Myrbetriq 50 mg and VESIcare 5 mg. Procedure In Detail: The patient was consented in the preoperative holding area before being transfe rred to the operative suite where general anesthesia was induced. He was given clindamycin 600 mg an d gentamicin 280 mg IV antimicrobial prophylaxis. Pneumo boots were provided for DVT prophylaxis. H e was placed in lithotomy position, padded and secured to the table appropriately. His genitalia wer e prepped using Hibiclens and draped in standard fashion. The case was begun using urethral sounds t o dilate his meatus and fossa navicularis from 20-Singaporean to 30-Singaporean with ease. Then, using a visua l obturator and the 26-Singaporean resectoscope, the urethra was traversed and the bladder entered. Of no te, the lateral lobar hypertrophy previously noted was largely emanating from the left lateral side o f the prostate, and there was generalized elevation of the bladder neck also noted. As a result, tra nsurethral resection was begun leveling the elevation of the bladder neck and residual median bar tis mario in a smooth trough down to the level of the verumontanum. Similar resection was then performed e xtending into the left lateral lobe, resecting to the level of the prostatic capsule and widening a m ild contracture at the bladder neck. I continued the resection anteriorly and extended over to the r ight lateral lobar where there was less tissue hypertrophy. Eventually, the prostate fossa was widel y patent and at the apex at the level of the verumontanum, mild residual lateral lobar tissue was lef t in place where the tissue was approximated, but not kissing or overlapping. The remainder of the p rostatic fossa was widely patent as was the bladder neck. All prostate chips were removed from withi n the bladder and the ureteral orifices, which were very near to the site of prior bladder neck resec tion were preserved and still effluxing clear yellow urine. I then carefully fulgurated any bleeding vessels within the entirety of the prostatic fossa, and with no residual prostatic chips and once I was happy with the resection, I left his bladder full and removed the resectoscope. I then passed a 22-Singaporean 3-way Sal catheter into his bladder with ease and placed 45 cc of sterile water into the balloon. The catheter was placed in moderate traction, and the patient was taken out of the lithotom y position. He was awakened from general anesthesia and transferred to a stretcher before being ospina sferred to the recovery room in good condition. The CBI was on very slow drip and the returning effl ux was completely clear. Complications: None. Discharge Disposition: He will follow up in Urology clinic on for catheter removal and void ing trial. I also sent a prescription for Bactrim Double Strength tablets to be taken twice daily fo r the next 5 days as well as Tylenol with Codeine for pain. ROSA MARIA/MODL Voice ID: [id number] Report ID: [id number]
[2021-07-30] MEDS ORDERED: CODEINE 30MG/APAP 300MG TAB ONE (10:02)
[2021-07-30 11:33] VITALS: BP 120/63; O2SAT 96
== END 2021-07-30 11:25 | disposition home or self-care (01) ==
LOC: OR 06:24
PROVIDERS: ATTEND Urology
PROC: 0VT08ZZ Resection of Prostate, Via Natural or Artificial Opening Endoscopic (ICD-10-PCS; principal; 2021-07-30 07:30)
DX: C61 Malignant neoplasm of prostate (principal); N13.9 Obstructive and reflux uropathy, unspecified; N32.81 Overactive bladder; Z20.822 Contact with and (suspected) exposure to COVID-19
CPT/HCPCS: 87088; 85025; 87086; 80048; 36415; 85610; 82947 ×2; 88305; 52601; U0002; J2704 ×2; J1580; J3010; J7030; J2405; J2250

== ENCOUNTER 2021-12-15 16:13 | Emergency (ER) | payer OTHER, BC ==
--- OUTSIDE RECORDS SUMMARY | 2021-12-15 16:19 | XMS REPORT | Continuity of Care Document ---
:1955 Author Organization [facility] t Address [address] [place] [address] Care Team Providers Name Role Phone Josey Andrew Primary Care Physician TERESA SORTO Attending Clinician Unavailable Kris WEINBERG Attending Clinician Unavailable Michael RN, T Attending Clinician Unavailable Only, Db Test Attending Clinician Unavailable Unknown Attending Clinician Unavailable UNKNOWN Attending Clinician Unavailable VICTORIA WEST Attending Clinician Unavailable Lab, Fam Pob I Attending Clinician Unavailable Gonzalo PAYNE Attending Clinician GONZALO Attending Clinician Unavailable Jeannie ABDI Attending Clinician Sammy PEMBERTON A Attending Clinician TERESA SORTO Admitting Clinician Unavailable Kris WEINEBRG Admitting Clinician Unavailable Nilsa BAIN Admitting Clinician Unavailable Payers Payer Name Policy Type Policy Number Effective Date Expiration Date S fortunato MEDICARE PART A [id number] 2016 2020 00:00:00 00:00:00 BCBS PPO POS EPO [id number] 2014 CHOICE 00:00:00 CDC REVIEW [id number] 2019 2020 00:00:00 00:00:00 ZZCDCREVIEW [id number] 2019 2019 00:00:00 00:00:00 Problems Condition Condition Condition Status Onset Resolution Last Treating Co mments Source Name Details Category Date Date Treatment Clinician Date Acute pain Acute pain Disease Active N PI:183 of right of right - 135211 1 knee knee 00:00: 00 Acute pain Acute pain Disease Active N PI:183 of right of right 2- 127937 1 knee knee 00:00: 00 Morbid Morbid Disease Active NPI:183 obesity obesity 01-14 [id number] with body with body 00:00: mass index mass index 00 of 50 or of 50 or higher higher Pain Pain Disease Active NPI:183 6-07 [id number] 00:00: 00 Morbid Morbid Disease Active NPI:183 obesity obesity 01-14 2769194 with body with body 00:00: mass index mass index 00 of of 40.0-49.9 40.0-49.9 Allergies, Adverse Reactions, Alerts Allergy Allergy Status Severity Reaction(s) Onset Inactive Treating Comm ents Source Name Type Date Date Clinician Iodinate DA Active [facility] d 6-10 Clear Contrast 00:00: Amanda - Oral 00 [facility] Penicill DA Active [facility] ins 6-10 Clear 00:00: [facility] phenazop DA Active [facility] yridine 6-10 Clear 00:00: Amanda 00 [facility] Iodinate DA Active [facility] d 1-15 [place] Contrast 00:00: Orthope - Oral 00 dic and IV [facility] Penicill DA Active [facility] ins 8-06 [facility] [place] iodine DA Active SV 2017- [facility] 8-06 [facility] [place] phenazop DA Active [facility] yridine 8-06 [facility] [place] Phenazop Propensi Active Anaphylaxis N PI:183 yridine ty to 09-07 [id number] adverse 00:00: reaction 00 s to drug PHENAZOP DRUG Active High Anaphylaxis NPI :183 YRIDINE INGREDI 09-07 [id number] 00:00: 00 PHENAZOP Allergy Active High Anaphylaxis [facility] I:118 YRIDINE 09-07 [id number] 00:00: 00 Iodine Propensi Active Rash 2015- IV Iodine NPI:1 83 ty to 6-13 [id number] adverse 00:00: reaction 00 s to drug Penicill Propensi Active Anaphylaxis N PI:183 ins ty to 01-20 [id number] adverse 00:00: reaction 00 s to drug IODINE DRUG Active High Anaphylaxis NPI:1 83 INGREDI 6-13 [id number] 00:00: 00 PENICILL Drug Active High Anaphylaxis NPI :183 INS Class 6- 0705706 00:00: 00 IODINE Allergy Active High Anaphylaxis NPI: 118 6-13 [id number] 00:00: 00 PENICILL Allergy Active High Anaphylaxis 2015- [facility] I:118 INS 6-13 7316927 00:00: 00 Social History Social Habit Start Date Stop Date Quantity Comments Source Exposure to Not sure NPI:[id number] 1 SARS-CoV-2 (event) History of Chews Tobacco NPI:[id number] tobacco use Alcohol Comment Occasional Drinker N PI:[id number] Tobacco use and 2017-09-10 2017-09-10 Current user NPI:165 [id number] exposure 00:00:00 00:00:00 Alcohol intake 2017-09-10 2017-09-10 0 /d NPI:[id number] 00:00:00 00:00:00 [birth year] NPI:[id number] 00:00:00 00:00:00 Smoking Status Start Date Stop Date Source Never smoker Medications Ordered Filled Start Stop Current Ordering Indication Dosage Frequency Signature Comments Components Source Medication Medication Date Date Medication? Clinician (SIG) Name Name No known No NPI:183 medications 09-09 [id number] 06:22: 27 No known No NPI:183 medications 09-09 [id number] 06:22: 27 No known No NPI:183 medications [id number] No known No NPI:183 medications [id number] No known No NPI:183 medications [id number] No known No NPI:183 medications [id number] Immunizations Ordered Immunization Filled Immunization Date Status Commen ts Source Name Name Influenza Virus 2017-09-10 Completed NPI:[id number] Vaccine Quad IM 3+ 00:00:00 YRS Pneumococcal 2017-09-10 Completed NPI:[id number] 81 Polysaccharide, 00:00:00 PPSV23 (PNEUMOVAX) Influenza Virus 2017-09-10 Completed NPI:[id number] Vaccine Quad IM 3+ 00:00:00 YRS Pneumococcal 2017-09-10 Completed NPI:[id number] 81 Polysaccharide, 00:00:00 PPSV23 (PNEUMOVAX) Influenza Virus 2017-09-10 Completed NPI:[id number] Vaccine Quad IM 3+ 00:00:00 YRS Pneumococcal 2017-09-10 Completed NPI:[id number] 81 Polysaccharide, 00:00:00 PPSV23 (PNEUMOVAX) Influenza Virus 2017-09-10 Completed NPI:[id number] Vaccine Quad IM 3+ 00:00:00 YRS Pneumococcal 2017-09-10 Completed NPI:[id number] 81 Polysaccharide, 00:00:00 PPSV23 (PNEUMOVAX) Influenza Virus 2017-09-10 Completed NPI:[id number] Vaccine Quad IM 3+ 00:00:00 YRS Pneumococcal 2017-09-10 Completed NPI:[id number] 81 Polysaccharide, 00:00:00 PPSV23 (PNEUMOVAX) Influenza Virus 2017-09-10 Completed NPI:[id number] Vaccine Quad IM 3+ 00:00:00 YRS Pneumococcal 2017-09-10 Completed NPI:[id number] 81 Polysaccharide, 00:00:00 PPSV23 (PNEUMOVAX) Vital Signs Vital Name Observation Time Observation Value Comments Source HEIGHT 2020-12-31 06:00:00 170.2 cm WEIGHT 2020-12-31 06:00:00 135.716 kg HEIGHT 2020-12-28 14:34:00 170.2 cm WEIGHT 2020-12-28 14:34:00 134.718 kg HEIGHT 2019-12-28 00:00:00 170.2 cm WEIGHT 2019-12-28 00:00:00 138.211 kg HEIGHT 2021-02-14 09:20:00 175.3 cm WEIGHT 2021-02-14 09:20:00 133.403 kg HEIGHT 2021-01-24 09:47:00 175.3 cm WEIGHT 2021-01-24 09:47:00 132.45 kg HEIGHT 2021-01-14 14:53:00 175.3 cm WEIGHT 2021-01-14 14:53:00 135.626 kg HEIGHT 2021-01-14 14:53:00 175.3 cm WEIGHT 2021-01-14 14:53:00 135.626 kg HEIGHT 2021-01-10 10:41:00 170.2 cm HEIGHT 2020-12-31 06:00:00 170.2 cm WEIGHT 2020-12-31 06:00:00 135.716 kg HEIGHT 2020-12-28 14:34:00 170.2 cm WEIGHT 2020-12-28 14:34:00 134.718 kg HEIGHT 2020-12-26 10:17:00 170.2 cm WEIGHT 2020-12-26 10:17:00 134.718 kg HEIGHT 2020-12-26 10:17:00 170.2 cm WEIGHT 2020-12-26 10:17:00 134.718 kg Heart rate 2020-06-22 21:00:00 85 /min NPI:1831 [id number] Respiratory rate 2020-06-22 21:00:00 20 /min Oxygen saturation in 2020-06-22 21:00:00 98 /min Arterial blood by Pulse oximetry Heart rate 2020-06-22 21:00:00 85 /min NPI:1831 [id number] Respiratory rate 2020-06-22 21:00:00 20 /min Oxygen saturation in 2020-06-22 21:00:00 98 /min Arterial blood by Pulse oximetry HEIGHT 2020-01-18 00:00:00 170.2 cm WEIGHT 2020-01-18 00:00:00 139.844 kg HEIGHT 2019-12-28 00:00:00 170.2 cm WEIGHT 2019-12-28 00:00:00 138.211 kg Procedures This patient has no known procedures. Encounters Start End Encounter Admission Attending Care Care Encounter Source Date/Time Date/Time Type Type Clinicians Facility Department ID 2021-09-04 [facility] [id number] NPI:174 14:38:47 [id number] 2021-09-04 Outpatient [facility] NPI:174 14:14:46 [id number] 2021-05-[address] [facility] Surgery [id number] [facility] 21:29:55 [facility] 2021-05-[address] [facility] Surgery [id number] [facility] 14:24:03 [facility] 2019-12-28 [facility] [id number] [facility] 18:11:06 [facility] 2021-09-17 2021-09-17 ambulatory [facility] [id number] NPI:174 00:00:00 00:00:00 [id number] 2021-08-28 2021-08-28 ambulatory [facility] [id number] NPI:174 00:00:00 00:00:00 [id number] 2021-08-01 2021-08-01 ambulatory [facility] [id number] NPI:174 00:00:00 00:00:00 [id number] 2021-07-17 2021-07-17 ambulatory [facility] [id number] NPI:174 00:00:00 00:00:00 [id number] 2021-07-03 2021-07-03 ambulatory [facility] [id number] NPI:174 00:00:00 00:00:00 [id number] 2021-06-26 2021-06-26 ambulatory [facility] [id number] NPI:174 00:00:00 00:00:00 [id number] 2021-05-12 2021-05-12 MARY Gallagher 1.2.840.114 [id number] NPI:183 00:00:00 00:00:00 (Out) Cori BYNUM 350.1.13.10 [id number] [facility] [id number] [id number] [id number] 2021-05-11 2021-05-11 Laboratory Only, Ang Db Test [facility] 1.2.8 40.114 [id number] NPI:183 14:58:25 15:13:25 Only Unknown, Attending Health 350.1.13.10 [id number] [place] 4.2.7.2.686 [place] [id number] [address] 2021-05-11 2021-05-11 Outpatient R [facility] [id number] NPI:183 15:00:00 15:00:00 [id number] 2021-05-11 2021-05-11 Outpatient R UNKNOWN, [facility] [id number] NPI:183 15:00:00 15:00:00 ATTENDING [id number] 8460-07-08 2021-02-14 Outpatient [facility] [id number] [facility] 00:00:00 00:00:00 ROD[facility] 2021-01-29 2021-01-29 Outpatient [facility] [id number] [facility] 00:00:00 00:00:00 R[facility] 2021-01-24 2021-01-24 Outpatient [facility] [id number] [facility] 00:00:00 00:00:00 [facility] 2021-01-24 2021-01-24 Outpatient KJ SORTO [facility] [id number] [facility] 00:00:00 00:00:00 [facility] 2021-01-14 2021-01-14 Emergency ER SLE Emergency [id number] [facility] 14:35:00 14:35:00 2021-01-14 2021-01-14 Outpatient [facility] BAR[facility]AS [facility] [id number] [facility] 00:00:00 00:00:00 ROD[facility] 2021-01-11 2021-01-11 Outpatient KJ [facility] SLE [id number] [facility] 00:00:00 00:00:00 2021-01-10 2021-01-10 Outpatient KJ SORTO [facility] SLE [id number] [facility] 00:00:00 00:00:00 RODRI 2021-01-10 2021-01-10 Outpatient KJ SLE [facility] [id number] [facility] 00:00:00 00:00:00 2020-12-28 2020-12-28 Outpatient KJ [facility] [id number] [facility] 00:00:00 00:00:00 2020-12-26 2020-12-26 Outpatient KJ SORTO SLE [facility] [id number] SLE 00:00:00 00:00:00 RODRI 2020-07-09 2020-07-09 Laboratory Lab, [facility] Fam Pob I [facility] 1.. 840.114 [id number] NPI:183 14:56:09 15:16:09 Only [facility] 350.1.13.10 [id number] [place] 4.2.7.2.686 Professio [phone] [place] [address] Office [address] One 2020-07-09 2020-07-09 Laboratory Lab, [facility] 1.2.840.114 [id number] 14:56:09 15:16:09 Only [facility] 350..13.10 [place] 4.2.7.2.686 Professio [phone] [place] [address] Office Building One 2020-07-09 2020-07-09 Outpatient R [facility] [id number] NPI:183 15:00:00 15:00:00 [id number] 2020-07-09 2020-07-09 Outpatient R GONZALO [facility] [id number] NPI:183 15:00:00 15:00:00 YOLA [id number] 1 2020-06-22 2020-06-22 Outpatient R [facility] [id number] NPI:183 19:20:00 19:20:00 [id number] 2020-06-22 2020-06-22 Outpatient R [facility] [id number] NPI:183 19:20:00 19:20:00 [id number] 2020-06-22 2020-06-22 Laboratory Lab, [facility] Pob I [facility] 1. 840.114 [id number] NPI:183 18:01:48 18:21:48 Only [facility] 350.1.13.10 [id number] [place] 4.2.7.2.686 Professio [id number] [place] [address] Office Building One 2020-06-22 2020-06-22 Laboratory Lab, [facility] 1.2.840.114 [id number] 18:01:48 18:21:48 Only Randall Pob I Health 350.1.13.10 [place] 4.2.7.2.686 Professio [phone] [place] 044 Office Building One 2020-05-31 2020-05-31 Laboratory Lab, [facility] Fam Pob I [facility] 1.. 840.114 [id number] NPI:183 15:19:07 15:46:53 Only [facility] 350.1.13.10 [id number] [place] 4.2.7.2.686 Professio [phone] [place] [address] Office Building One 2020-05-31 2020-05-31 Laboratory Lab, [facility] 1..840.114 [id number] 15:19:07 15:46:53 Only Fam Pob I Health 350.1.13.10 [place] 4.2.7.2.686 Professio [phone] [place] [address] Office Building One 2020-05-31 2020-05-31 Outpatient R [facility] [id number] NPI:183 15:40:00 15:40:00 [id number] 2020-05-31 2020-05-31 Outpatient R [facility] [id number] NPI:183 15:40:00 15:40:00 [id number] 2020-05-17 2020-05-17 Laboratory Lab, [facility] Fam Pob I [facility] 1.. 840.114 [id number] NPI:183 14:48:04 15:08:04 Only Yola [facility] 350.1.13.10 [id number] [place] 4.2.7.2.686 Professio [phone] [place] [address] Office Building One 2020-05-17 2020-05-17 Laboratory Lab, [facility] 1..840.114 [id number] 14:48:04 15:08:04 Only Fam Pob I Health 350.1.13.10 [place] 4.2.7.2.686 Professio [phone] [place] [address] Office Building One 2020-05-17 2020-05-17 [id number] NPI:183 15:00:00 15:00:00 YOLA [id number] 1 2020-01-18 2020-01-[address] [facility] SLE [id number] [facility] 00:00:00 00:00:00 RODRI Results Test Description Test Time Test Comments Results Result Comments Source BLOOD CULTURE 2021-01-20 11:07:00 Test Item Value Reference Range Interpretation Comme nts CULTURE (BEAKER) (test A From Aerobic Bottle Only code = 1095) Micrococcus lut eusof a fourth type GRAM STAIN RESULT (BEAKER) From aerobic bottle only: (test code = 1123) gram positive cocci in clusters BLOOD [id number] 16:01:00 Test Item Value Reference Range Interpretation Comments CULTURE (BEAKER) (test No growth in 5 days code = 1095) POCT-GLUCOSE [id number] 12:19:00 Test Item Value Reference Range Interpretation Comments POC-GLUCOSE METER 207 mg/dL 70-110 H : TESTED A T [facility] 6720 (BEAKER) (test code = [facility] [facility], 1538) 63126: Director [facility] [employer]/Techni bushra ID = [id number] for STEFAN FUENTES WOUND CULTURE + GRAM [id number] 09:50:00 Test Item Value Reference Range Interpretation Comments CULTURE (BEAKER) A 1+ Enteroba cter (test code = cloacae 1095) GRAM STAIN <1+ WBCs RESULT (BEAKER) (test code = 1123) GRAM STAIN 1+ gram positive RESULT (BEAKER) cocci in clusters (test code = 586005) 3+ Skin floraPOCT-GLUCOSE [id number] 08:28:00 Test Item Value Reference Range Interpretation Comments POC-GLUCOSE METER 142 mg/dL 70-110 H : TESTED A T [facility] 6720 (BEAKER) (test code = [employer] [facility], 1538) 05766: Director [employer]/Techni bushra ID = [id number] for STEFAN FUENTES BASIC METABOLIC [id number] 06:42:00 Test Item Value Reference Range Interpretation [...] 697) EGFR (BEAKER) (test 85 mL/min/1.73 ESTIMA HARINDER GFR IS code = 1092) sq m NOT ACCURATE CREATININE CLEARANCE IN PREDICTING GLOMERULAR FILTRATION RATE . ESTIMATED GFR I S NOT APPLICABLE FOR DIALYSIS PATIEN TS. Director [facility] [employer] ID - [id number] (HEMOGRAM ONLY)2021-01-18 06:11:00 Test Item Value Reference [...] 0-0 (BEAKER) (test code = 413) POCT-GLUCOSE [id number] 20:51:00 Test Item Value Reference Range Interpretation Comments POC-GLUCOSE METER 227 mg/dL 70-110 H : TESTED A T [facility] 6720 (BEAKER) (test code = GREG WEBBER [place], 1538) 38052: Director [employer]/Techni bushra ID = [id number] for MARY COX POCT-GLUCOSE [id number] 16:48:00 Test Item Value Reference Range Interpretation Comments POC-GLUCOSE METER 207 mg/dL 70-110 H : TESTED A T [facility] 6720 (BEAKER) (test code = [facility], 1538) 25168: Director [employer]/Techni bushra ID = [id number] for QUEEN GARCIA POCT-GLUCOSE [id number] 11:24:00 Test Item Value Reference Range Interpretation Comments POC-GLUCOSE METER 210 mg/dL 70-110 H : TESTED A T [facility] 6720 (BEAKER) (test code = [facility], 1538) 05942: Director [employer]/Techni bushra ID = [id number] for QUEEN GRACIA POCT-GLUCOSE [id number] 07:15:00 Test Item Value Reference Range Interpretation Comments POC-GLUCOSE METER 189 mg/dL 70-110 H : TESTED A T [facility] 6720 (BEAKER) (test code = [facility], 1538) 85698: Director [employer]/Techni bushra ID = [id number] for QUEEN GARCIA BASIC METABOLIC [id number] 06:49:00 Test Item Value Reference Range Interpretation [...] 697) EGFR (BEAKER) (test 83 mL/min/1.73 ESTIMA HARINDER GFR IS code = 1092) sq m NOT ACCURATE CREATININE CLEARANCE IN PREDICTING GLOMERULAR FILTRATION RATE . ESTIMATED GFR I S NOT APPLICABLE FOR DIALYSIS PATIEN TS. Director [employer] ID - SANIA MCBC (HEMOGRAM ONLY)2021-01-17 06:04:00 [...] 0-0 (BEAKER) (test code = 413) POCT-GLUCOSE [id number] 20:30:00 Test Item Value Reference Range Interpretation Comments POC-GLUCOSE METER 223 mg/dL 70-110 H : Notified RN/MD: (PATRICIA) (test code = TESTED AT [facility] 6720 1538) RADHA [facility], [address]: Director [employer]/Techni bushra ID = [id number] for MARY COX POCT-GLUCOSE [id number] 16:56:00 Test Item Value Reference Range Interpretation Comments POC-GLUCOSE METER 234 mg/dL 70-110 H : TESTED A T [facility] 6720 (PATRICIA) (test code = GREG Khan [facility], 1538) 52314: Director [employer]/Techni bushra ID = [id number] for QUEEN GARCIA CT, EXTREMITY, LOWER WITHOUT CONTRAST, [id number] 16:40:00Unlisted Reason for Exam - Click Yes and Enter Reason Below->No [facility] 1955 Sex: MFINAL REPORT [...] drainable collection is identified. Signed: Juvencio Olea Verified Date/Time: 01/16/2021 16:40:44 Reading Location: [facility] Radiology Reading Room POCT-GLUCOSE [id number] 10:32:00 Test Item Value Reference Range Interpretation Comments POC-GLUCOSE METER 306 mg/dL 70-110 H : TESTED A T [facility] 6720 (BEAKER) (test code = GREG Khan [facility], 1538) 10969: Director [employer]/Techni bushra ID = [id number] for DION KAY [place] HEMOGLOBIN [id number] 08:22:00 Test Item Value Reference Range Interpretation Comments HEMOGLOBIN A1C (BEAKER) (test code = 12.5 % 4.3-6.1 H 368) POCT-GLUCOSE [id number] 07:42:00 Test Item Value Reference Range Interpretation Comments POC-GLUCOSE METER 272 mg/dL 70-110 H : TESTED A T [facility] 6720 (BEAKER) (test code = GREG Khan [facility], 1538) 70838: Director [employer]/Techni bushra ID = [id number] for QUEEN GARCIA BASIC METABOLIC [id number] 05:33:00 Test Item Value Reference Range Interpretation [...] 697) EGFR (BEAKER) (test 63 mL/min/1.73 ESTIMA HARINDER GFR IS code = 1092) sq m NOT ACCURATE CREATININE CLEARANCE IN PREDICTING GLOMERULAR FILTRATION RATE . ESTIMATED GFR I S NOT APPLICABLE FOR DIALYSIS PATIEN TS. Director [employer] ID - MALIK [facility] (HEMOGRAM ONLY)2021-01-16 05:05:00 Test Item Value Reference [...] WBC 0-0 (BEAKER) (test code = 413) BLOOD CULTURE IDENTIFICATION [id number] 22:17:00 Test Item Value Reference Range Interpretation Comments LISTERIA MONOCYTOGENES (test Not detected Not detected code = 0426767) STAPHYLOCOCCUS (test code = Not detected Not detected 4697015) STAPHYLOCOCCUS AUREUS (test code Not detected Not detected = 1982734) STREPTOCOCCUS (test code = Not detected Not detected 4047379) STREPTOCOCCUS AGALACTIAE (GROUP Not detected Not detected B) (test code = 1619048) STREPTOCOCCUS PNEUMONIAE (test Not detected Not detected code = 5274201) STREPTOCOCCUS PYOGENES (GROUP A) Not detected Not detected (test code = 2105813) ACINETOBACTER BAUMANNII (test Not detected Not detected code = 0299373) HAEMOPHILUS INFLUENZAE (test Not detected Not detected code = 5813850) NEISSERIA MENINGITIDIS (test Not detected Not detected code = 9702575) ENTEROBACTERIACEAE (test code = Not detected Not detected 5387703) ENTEROBACTER CLOACOE COMPLEX Not detected Not detected (test code = 7647529) KLEBSIELLA OXYTOCA (test code = Not detected Not detected ) KLEBSIELLA PNEUMONIAE (test code Not detected Not detected = 1650) PROTEUS (test code = 8128724) Not detected Not detected SERRATIA MARCESCENS (test code = Not detected Not detected 1568570) KATI ALBICANS (test code = Not detected Not detected ) KATI GLABRATA (test code = Not detected Not detected ) KATI KRUSEI (test code = Not detected Not detected 9475032) KATI PARAPSILOSIS (test code Not detected Not detected = 5426556) KATI TROPICALIS (test code = Not detected Not detected ) ESCHERICHIA COLI (test code = Not detected Not detected ) METHICILLIN-RESISTANCE GENE (test code = 3581541) VANCOMYCIN-RESISTANCE GENE (test code = 3461643) CARBAPENEM-RESISTANCE GENE (test code = 6381946) ENTEROCOCCUS-BEAKER (test code = Not detected Not detected ) PSEUDOMONAS AERUGINOSA-BEAKER Not detected Not detected (test code = 1312680) Other bacteria and resistance markers not targeted by this PCR panel cannot be excluded; therefore clinical correlation and follow up of serology, culture results, and other molecular studies is required. The results are not intended to be used as the sole means for clinical diagnosis or patient management decisions. This sample was tested at the [facility] Molecular Diagnostics Laboratory using the EverySignal Blood Culture ID Panel. It is FDA cleared and has been verified and approved by the [facility] Molecular Diagnostics Laboratory for clinical use. This laboratory is CLIA-certified and College ofAmerican Pathologists (CAP)-accredited to perform high complexity testing.POCT-GLUCOSE [id number] 21:06:00 Test Item Value Reference Range Interpretation Comments POC-GLUCOSE METER 248 mg/dL 70-110 H : TESTED A T [facility] 6720 (Charlie App) (test code = [facility], 1538) 37693: Director [employer]/Techni bushra ID = [id number] for VONDA PARADA POCT-GLUCOSE [id number] 17:10:00 Test Item Value Reference Range Interpretation Comments POC-GLUCOSE METER 185 mg/dL 70-110 H : TESTED A T [facility] 6720 (SmashrunAKER) (test code = [facility], 1538) 24935: Director [employer]/Techni bushra ID = [id number] for MAX BEGEORGIE STEFAN POCT-GLUCOSE [id number] 12:46:00 Test Item Value Reference Range Interpretation Comments POC-GLUCOSE METER 247 mg/dL 70-110 H : TESTED A T [facility] 6720 (BEAKER) (test code = [facility] Erin [facility], 1538) 48501: Director [employer]/Techni bushra ID = [id number] for STEFAN FUENTES POCT-GLUCOSE [id number] 08:15:00 Test Item Value Reference Range Interpretation Comments POC-GLUCOSE METER 230 mg/dL 70-110 H : TESTED A T [facility] 6720 (BEAKER) (test code = [facility] Erin [facility], 1538) 33208: Director [employer]/Techni bushra ID = [id number] for STEFAN FUENTES BASIC METABOLIC [id number] 05:51:00 Test Item Value Reference Range Interpretation [...] 697) EGFR (BEAKER) (test 52 mL/min/1.73 ESTIMA HARINDER GFR IS code = 1092) sq m NOT ACCURATE CREATININE CLEARANCE IN PREDICTING GLOMERULAR FILTRATION RATE . ESTIMATED GFR I S NOT APPLICABLE FOR DIALYSIS PATIEN TS. Director [employer] ID - SANIA MCBC (HEMOGRAM ONLY)2021-01-15 05:34:00 [...] WBC 0-0 (BEAKER) (test code = 413) LACTIC ACID, [id number] 00:23:00 Test Item Value Reference Range Interpretation Comments LACTATE BLOOD VENOUS (2) (BEAKER) 1.42 mmol/L 0.50-2.20 (test code = 2872) Director [facility] [employer] ID - DBPOCT-GLUCOSE [id number] 21:18:00 Test Item Value Reference Range Interpretation Comments POC-GLUCOSE METER 351 mg/dL 70-110 H : TESTED A T [facility] 6720 (BEAKER) (test code = [facility], 153) [id number]: Director [facility]/Techni bushra ID = [id number] for MAX IROZ (V), ELDA POCT-GLUCOSE [id number] 18:45:00 Test Item Value Reference Range Interpretation Comments POC-GLUCOSE METER 297 mg/dL 70-110 H : TESTED A T [facility] 6720 (BEAKER) (test code = [facility], 153) 16456: Director [facility]/Techni bushra ID = [id number] for MAX MARTINEZ, STEFAN POCT-GLUCOSE [id number] 18:13:00 Test Item Value Reference Range Interpretation Comments POC-GLUCOSE METER 300 mg/dL 70-110 H : TESTED A T [facility] 6720 (BEAKER) (test code = [facility], 153) [id number]: Director [facility]/Techni bushra ID = [id number] for CHIQUIS NICKERSON LACTIC ACID, [id number] 17:13:00 Test Item Value Reference Range Interpretation Comments LACTATE BLOOD VENOUS 2.48 mmol/L 0.50-2.20 H Specime n slightly (2) (BEAKER) (test hemolyzed code = 9499) [facility] ID - DBKETONE, [id number] 16:08:00 Test Item Value Reference Range Interpretation Comments KETONES, BLOOD (BEAKER) (test code 0.2 mmol/L <0.4 = 1103) COMPREHENSIVE METABOLIC [id number] 15:56:00 Test Item Value Reference Range Interpretation [...] 347) EGFR (BEAKER) (test 43 mL/min/1.73 ESTIMA HARINDER GFR IS code = 1092) sq m NOT ACCURATE CREATININE CLEARANCE IN PREDICTING GLOMERULAR FILTRATION RATE . ESTIMATED GFR I S NOT APPLICABLE FOR DIALYSIS PATIEN TS. [facility] ID - DBCBC W/PLT COUNT & AUTO [id number] 15:46:00 Test Item Value Reference Range Interpretation [...] 0-1 PERCENT (BEAKER) (test code = 2801) [id number] 15:39:00 Test Item Value Reference Range Interpretation Comments PARTIAL THROMBOPLASTIN TIME 31.5 seconds 22.5-36.0 (BEAKER) (test code = 760) PROTHROMBIN TIME/[id number] 15:38:00 Test Item Value Reference Range Interpretation Comments PROTIME (BEAKER) 15.1 seconds 11.9-14.2 H (test code = 759) INR (BEAKER) (test 1.22 See_Comment [Automat ed message] code = 370) The system [employer] generated this result transmitted ref erence range: <=5.90. The reference range was not used to int erpret this result as normal/abnormal . RECOMMENDED COUMADIN/WARFARIN INR THERAPY RANGESSTANDARD DOSE: 2.0 - 3.0 Includes: PROPHYLAXIS forvenous thrombosis, systemic embolization; TREATMENT for venous thrombosis and/or pulmonary embolus.HIGH RISK: Target INR is 2.5-3.5 for patients with mechanical heart valves.LACTIC ACID, [id number] 15:36:00 Test Item Value Reference Range Interpretation Comments LACTATE BLOOD VENOUS 3.61 mmol/L 0.50-2.20 H Specime n slightly (2) (BEAKER) (test hemolyzed code = 2872) [facility] ID - DBPOCT-GLUCOSE [id number] 15:31:00 Test Item Value Reference Range Interpretation Comments POC-GLUCOSE METER 414 mg/dL 70-110 HH : TESTED A T [facility] 6720 (BEAKER) (test code = GREG Khan [facility], 1538) 16435: [facility]/Techni bushra ID = [id number] for CHIQUIS NICKERSON MANFRED TISSUE [id number] 12:40:00Surgical Pathology Report Case: [id number] Authorizing Provider: Rodri Sorto, Collected: 12/31/2020 08:19 AM Ordering Location: [facility] Received: 12/31/2020 09:18 AM PERIOPERATIVE SERVICES Pathologist: Freedom Chi MD Specimen: Seroma, LEFT LEG SEROMA SEROMA, LEFT LEG, EXCISION:SIMPLE CYST, CONSISTENT WITH CLINICAL SEROMA Signing Pathologist Direct Phone Line: [phone] signed by Freedom Chi MD on 01/03/2021 at 12:40 [id number] swelling of left lower leg SeromaReceived fresh labeled the patient's name, accession number and "left leg seroma" is a 4.4 x 3.7 x 1.5 cm previously disrupted unilocular cyst with a karimi-white, smooth inner lining. Perinatal Educator sections are submitted in A1-A2.NILAY Roger, HT (ASCP)[facility], Department of Pathology, [address] [place] [address], [facility], [facility], [address] [place] [address] 0000[address], [facility], [facility] of [facility], [address] [place] [address] 730[address], KMAK-GLUCOSE [id number] 12:05:00 Test Item Value Reference Range Interpretation Comments POC-GLUCOSE METER 329 mg/dL 70-110 H : TESTED A T [facility] 6720 (BEAKER) (test code = [facility], 153) 96543: [facility]/Techni bushra ID = [id number] for An jane (pca2), Soraya POCT-GLUCOSE [id number] 08:18:00 Test Item Value Reference Range Interpretation Comments POC-GLUCOSE METER 249 mg/dL 70-110 H : TESTED A T [facility] 6720 (BEAKER) (test code = [facility], 153) 04601: [facility]/Techni bushra ID = [id number] for An jane (pca2), Soraya POCT-GLUCOSE [id number] 21:17:00 Test Item Value Reference Range Interpretation Comments POC-GLUCOSE METER 305 mg/dL 70-110 H : TESTED A T [facility] 6720 (BEAKER) (test code = [facility], 153) 45265: [facility]/Techni bushra ID = [id number] for MARSHALL LA, BECK POCT-GLUCOSE [id number] 18:48:00 Test Item Value Reference Range Interpretation Comments POC-GLUCOSE METER 283 mg/dL 70-110 H : TESTED A T [facility] 6720 (BEAKER) (test code = [facility], 1538) 16975: Director [facility]/Techni bushra ID = [id number] for An jane (pca2)Soraya GLUCOSE-STAT [id number] 15:14:00 Test Item Value Reference Range Interpretation Comments GLUCOSE RANDOM (BEAKER) (test code 269 mg/dL 70-110 H = 652) CALCIUM, [id number] 15:14:00 Test Item Value Reference Range Interpretation Comments CALCIUM IONIZED (BEAKER) (test 1.06 mmol/L 1.12-1.27 L code = 698) PH, BLOOD (BEAKER) (test code = 7.40 1810) HGB/HCT (H&H) - STAT [id number] 15:13:00 Test Item Value Reference Range Interpretation Comments HEMOGLOBIN (BEAKER) (test code = 14.5 GM/DL 13.0-16.8 410) HEMATOCRIT (BEAKER) (test code = 43.0 % 40.0-50.0 411) POTASSIUM-STAT [id number] 15:13:00 Test Item Value Reference Range Interpretation Comments POTASSIUM (BEAKER) (test code = 3.9 meq/L 3.6-5.5 379) POCT-GLUCOSE [id number] 09:46:00 Test Item Value Reference Range Interpretation Comments POC-GLUCOSE METER 243 mg/dL 70-110 H : TESTED A T [facility] 6720 (BEAKER) (test code = [facility], 1538) 15487: [facility]/Techni bushra ID = [id number] for MARSHALL NUBIA MASON POCT-GLUCOSE [id number] 06:10:00 Test Item Value Reference Range Interpretation Comments POC-GLUCOSE METER 300 mg/dL 70-110 H : TESTED A T [facility] 6720 (BEAKER) (test code [facility], = 1538) 67671: Director [facility]/Techni bushra ID = [id number] for JORD AN, LACRYSTAL SARS-COV2/RT-PCR ([facility])2020-12-26 23:14:00 Test Item Value Reference Range Interpretation Comments SARS-COV2/RT-PCR (test Negative Not Detected, Negative, code = 9162664) See external report for linked test SARS-COV-[address] [facility] PEDRO (test code = 2067368) Negative result for this test determines that [...] the Scott SARS-CoV-2 assay.Fact Sheet for Healthcare Providers:https://www.Notch.scott/caitie/ TE_HDKI-NyW-4_VGM_Ayzh_Kykin_12-394802.pdfFact Sheet for Healthcare Patients:https://www.Notch.ab sally/caitie/OK_LIRM-AhA-3_Vipstht_Ophd_Tgewy_EX_21-813923C6.pdfPerforming Laboratory:[facility] [place] [address] BASIC METABOLIC [id number] 12:39:00 Test Item Value Reference Range Interpretation [...] 697) EGFR (BEAKER) (test 53 mL/min/1.73 ESTIMA HARINDER GFR IS code = 1092) sq m NOT ACCURATE CREATININE CLEARANCE IN PREDICTING GLOMERULAR FILTRATION RATE . ESTIMATED GFR I S NOT APPLICABLE FOR DIALYSIS PATIEN TS. Director [facility] ID - SANIA MPROTHROMBIN TIME/[id number] 12:34:00 Test Item Value Reference Range Interpretation Comments PROTIME (BEAKER) 12.9 seconds 11.9-14.2 (test code = 759) INR (BEAKER) (test 1.00 See_Comment [Automat ed message] code = 370) The system [employer] generated this result transmitted ref erence range: [...] PERCENT (BEAKER) (test code = 2801) POCT-GLUCOSE [id number] 11:27:00 Test Item Value Reference Range Interpretation Comments POC-GLUCOSE METER 293 mg/dL 70-110 H : TESTED A T [facility] 6720 (BEAKER) (test code = GREG Khan [place], 1538) 28279: Director [facility]/Techni bushra ID = [id number] for CARLENE ANAND POCT-GLUCOSE [id number] 07:46:00 Test Item Value Reference Range Interpretation Comments POC-GLUCOSE METER 154 mg/dL 70-110 H : TESTED A T [facility] 6720 (BEAKER) (test code = GREG Khan [facility], 1538) 08204: Director [facility]/Techni bushra ID = [id number] for CARLENE ANAND [id number] 06:29:00 Test Item Value Reference Range Interpretation Comments MAGNESIUM (BEAKER) 2.0 mg/dL 1.6-2.6 Specimen slightly (test code = 627) hemolyzed Director [facility] ID Jodi GAN [id number] 06:29:00 Test Item Value Reference Range Interpretation Comments PHOSPHORUS (BEAKER) 4.0 mg/dL 2.3-4.7 Specimen slightly (test code = 604) hemolyzed Director [facility] ID Jodi GAN WCBC (HEMOGRAM ONLY)2020-01-06 06:23:00 Test Item [...] H (BEAKER) (test code = 413) CALCIUM, [id number] 05:39:00 Test Item Value Reference Range Interpretation Comments CALCIUM IONIZED (BEAKER) (test 1.07 mmol/L 1.12-1.27 L code = 698) PH, BLOOD (BEAKER) (test code = 7.46 1810) POCT-GLUCOSE [id number] 22:28:00 Test Item Value Reference Range Interpretation Comments POC-GLUCOSE METER 161 mg/dL 70-110 H : TESTED A T [facility] 6720 (BEAKER) (test code = [facility], 1538) 31899: Director [facility]/Techni bushra ID = [id number] for BECK PAZ POCT-GLUCOSE [id number] 16:46:00 Test Item Value Reference Range Interpretation Comments POC-GLUCOSE METER 112 mg/dL 70-110 H : TESTED A T [facility] 6720 (BEAKER) (test code = [facility], 1538) 41888: [facility]/Techni bushra ID = [id number] for [place] LLIAMS, TYNEKA SPUTUM CULTURE + GRAM [id number] 13:35:00 Test Item Value Reference Range Interpretation Comments CULTURE (BEAKER) 2+ Normal respiratory (test code = 1095) dexter present GRAM STAIN RESULT <1+ WBCs (BEAKER) (test code = 1123) GRAM STAIN RESULT 5-10 epithelial cells (BEAKER) (test code = 19856) GRAM STAIN RESULT 1+ gram positive cocci (BEAKER) (test code = in chains, pairs and 37197) clusters GRAM STAIN RESULT 1+ gram variable rods (BEAKER) (test code = 200361) POCT-GLUCOSE [id number] 11:51:00 Test Item Value Reference Range Interpretation Comments POC-GLUCOSE METER 245 mg/dL 70-110 H : TESTED A T [facility] 6720 (BEAKER) (test code = [facility], 1538) 32888: [facility]/Techni bushra ID = [id number] for [place] LLIAMS, TYNEKA POCT-GLUCOSE [id number] 07:33:00 Test Item Value Reference Range Interpretation Comments POC-GLUCOSE METER 256 mg/dL 70-110 H : TESTED A T [facility] 6720 (BEAKER) (test code = GREG WEBBER [place], 1538) 48134: Director [facility]/Techni bushra ID = [id number] for TAY GARCIA CALCIUM, [id number] 06:25:00 Test Item Value Reference Range Interpretation Comments CALCIUM IONIZED (BEAKER) (test 1.05 mmol/L 1.12-1.27 L code = 698) PH, BLOOD (BEAKER) (test code = 7.49 1810) [id number] 04:39:00 Test Item Value Reference Range Interpretation Comments PHOSPHORUS (BEAKER) (test code = 3.2 mg/dL 2.3-4.7 604) [facility] ID - SANIA [id number] 04:39:00 Test Item Value Reference Range Interpretation Comments MAGNESIUM (BEAKER) (test code = 1.9 mg/dL 1.6-2.6 627) Director [facility] ID - SANIA MBASIC METABOLIC [id number] 04:39:00 Test Item Value Reference Range Interpretation [...] S NOT APPLICABLE FOR DIALYSIS PATIEN TS. Director [facility] ID - SANIA MCBC (HEMOGRAM ONLY)2020-01-05 04:22:00 [...] H (BEAKER) (test code = 413) POCT-GLUCOSE [id number] 21:09:00 Test Item Value Reference Range Interpretation Comments POC-GLUCOSE METER 333 mg/dL 70-110 H : TESTED A T [facility] 6720 (BEAKER) (test code = [facility] WE[facility] [place], 1538) 31194: [facility]/Techni bushra ID = [id number] for Ritika felizDana BASIC METABOLIC [id number] 17:36:00 Test Item Value Reference Range Interpretation [...] S NOT APPLICABLE FOR DIALYSIS PATIEN TS. Director [facility] ID - BSPOCT-GLUCOSE [id number] 17:13:00 Test Item Value Reference Range Interpretation Comments POC-GLUCOSE METER 254 mg/dL 70-110 H : TESTED A T [facility] 6720 (BEAKER) (test code = [facility], 1538) 13783: [facility]/Techni bushra ID = [id number] for SHAUN MIKE POCT-GLUCOSE [id number] 12:25:00 Test Item Value Reference Range Interpretation Comments POC-GLUCOSE METER 271 mg/dL 70-110 H : TESTED A T [facility] 6720 (BEAKER) (test code = [facility], 1538) 87770: Director [facility]/Techni bushra ID = [id number] for GERHARD URBINA POCT-GLUCOSE [id number] 08:24:00 Test Item Value Reference Range Interpretation Comments POC-GLUCOSE METER 250 mg/dL 70-110 H : TESTED A T [facility] 6720 (BEAKER) (test code = [facility], 1538) 41485: Director [facility]/Techni bushra ID = [id number] for Andrea Pizarro [id number] 06:40:00 Test Item Value Reference Range Interpretation Comments PHOSPHORUS (BEAKER) (test code = 3.3 mg/dL 2.3-4.7 604) Director [facility] ID - FILIPPO [id number] 06:40:00 Test Item Value Reference Range Interpretation Comments MAGNESIUM (BEAKER) (test code = 2.0 mg/dL 1.6-2.6 627) Director [facility] ID - FILIPPO LBASIC METABOLIC [id number] 06:40:00 Test Item Value Reference Range Interpretation [...] S NOT APPLICABLE FOR DIALYSIS PATIEN TS. [facility] ID - PIAYA LCBC (HEMOGRAM ONLY)2020-01-04 06:07:00 [...] H (BEAKER) (test code = 413) CALCIUM, [id number] 05:55:00 Test Item Value Reference Range Interpretation Comments CALCIUM IONIZED (BEAKER) (test 1.03 mmol/L 1.12-1.27 L code = 698) PH, BLOOD (BEAKER) (test code = 7.46 1810) RAD, CHEST, 1 VIEW, NON [id number] 05:36:00Reason for exam:->s/p ACB, fluid overloadShould this be performed at the bedside?->YesFINAL REPORT CLINICAL INDICATION: Postop Comparison: 01/03/2020 The cardiomediastinal contours are stable. Central pulmonary vascular congestion and bilateral parenchymal opacities are partially improved, suggesting improving pulmonary edema. There is no pneumothorax or significant pleural collection. A right IJ CVC has been removed. Signed: Evie Alvares MDReport Verified Date/ Time: 01/04/2020 05:36:24 POCT-GLUCOSE [id number] 22:09:00 Test Item Value Reference Range Interpretation Comments POC-GLUCOSE METER 260 mg/dL 70-110 H : TESTED A T [facility] 6720 (BEAKER) (test code = GREG Khan [facility], 1538) 44888: [facility]/Techni bushra ID = [id number] for Dana Morley BASIC METABOLIC [id number] 17:47:00 Test Item Value Reference Range Interpretation [...] S NOT APPLICABLE FOR DIALYSIS PATIEN TS. [facility] ID - VIK EPOCT-GLUCOSE [id number] 11:45:00 Test Item Value Reference Range Interpretation Comments POC-GLUCOSE METER 276 mg/dL 70-110 H : TESTED A T [facility] 6720 (BEAKER) (test code = [facility], 1538) 89330: Director [facility]/Techni bushra ID = [id number] for HEATHER DANIEL POCT-GLUCOSE [id number] 07:39:00 Test Item Value Reference Range Interpretation Comments POC-GLUCOSE METER 219 mg/dL 70-110 H : TESTED A T [facility] 6720 (BEAKER) (test code = [facility], 1538) 61700: Director [facility]/Techni bushra ID = [id number] for Katy Morel CALCIUM, [id number] 03:58:00 Test Item Value Reference Range Interpretation Comments CALCIUM IONIZED (BEAKER) (test 1.04 mmol/L 1.12-1.27 L code = 698) PH, BLOOD (BEAKER) (test code = 7.41 1810) BASIC METABOLIC [id number] 03:57:00 Test Item Value Reference Range Interpretation [...] S NOT APPLICABLE FOR DIALYSIS PATIEN TS. [facility] ID - [id number] 03:53:00 Test Item Value Reference Range Interpretation Comments PHOSPHORUS (BEAKER) (test code = 3.3 mg/dL 2.3-4.7 604) [facility] ID - [id number] 03:53:00 Test Item Value Reference Range Interpretation Comments MAGNESIUM (BEAKER) (test code = 1.9 mg/dL 1.6-2.6 627) Director [facility] ID - LAHEPATIC FUNCTION [id number] 03:53:00 Test Item Value Reference Range Interpretation [...] (test code = 34 U/L 6-55 347) Director [facility] ID - [id number] 03:53:00 Test Item Value Reference Range Interpretation Comments AMYLASE (BEAKER) (test code = 349) 183 U/L 25-125 H [facility] ID - [id number] 03:53:00 Test Item Value Reference Range Interpretation Comments LIPASE (BEAKER) (test code = 749) 454 U/L 8-78 H [facility] ID - LACBC (HEMOGRAM ONLY)2020-01-03 03:38:00 Test [...] = 413) RAD, CHEST, 1 VIEW, NON [id number] 03:06:00Reason for exam:->s/p ACB, fluid overloadShould this [...] Sen Joshi Verified Date/Time: 01/03/2020 03:06:33 POCT-GLUCOSE [id number] 22:56:00 Test Item Value Reference Range Interpretation Comments POC-GLUCOSE METER 224 mg/dL 70-110 H : TESTED A T [facility] 6720 (BEAKER) (test code = [facility]REG WE[facility] [place], 1538) 97613: [facility]/Techni bushra ID = [id number] for DO SHAKA REMY [id number] 18:17:00 Test Item Value Reference Range Interpretation Comments MAGNESIUM (BEAKER) 2.1 mg/dL 1.6-2.6 Specimen slightly (test code = 627) hemolyzed Director [facility] ID - [id number] 18:17:00 Test Item Value Reference Range Interpretation Comments POTASSIUM (BEAKER) 4.0 meq/L 3.5-5.1 Specimen slightly (test code = 379) hemolyzed Director [facility] ID - NTPU/S, ABDOMINAL, [id number] 17:44:00Reason for exam:- >abdomoanl pain, increased amylase [...] 4.Small left pleural effusion. Signed: Harish Segovia MDReport Verified Date/Time: 01/02/2020 17:44:05 Reading Location: [facility] B1 C013Y CT Body Reading Room POCT-GLUCOSE [id number] 17:37:00 Test Item Value Reference Range Interpretation Comments POC-GLUCOSE METER 251 mg/dL 70-110 H : TESTED A T [facility] 6720 (BEAKER) (test code = [facility] [place], 1538) 14339: Director [facility]/Techni bushra ID = [id number] for AL HEATHER MANN [id number] 14:12:00 Test Item Value Reference Range Interpretation Comments PROCALCITONIN (BEAKER) (test code 0.26 ng/mL <0.05 H = 3036) SEPSIS RISK (ng/mL)Low: 0.05-0.50Intermediate: 0.51-2.00High: >=[id number] 14:01:00 Test Item Value Reference Range Interpretation Comments LIPASE (BEAKER) (test code = 749) 508 U/L 8-78 H [facility] ID - [id number] 14:01:00 Test Item Value Reference Range Interpretation Comments AMYLASE (BEAKER) (test 177 U/L 25-125 H Speci men slightly code = 349) hemolyzed [facility] ID - NTPHEPATIC FUNCTION [id number] 14:01:00 Test Item Value Reference Range Interpretation [...] Specimen slightly (test code = 347) hemolyzed Director [facility] ID - [id number] 13:46:00 Test Item Value Reference Range Interpretation [...] code = 413) URINALYSIS W/ REFLEX URINE [id number] 11:53:00 Test Item Value Reference Range Interpretation [...] = 516) SOURCE(BEAKER) (test code = 2795) [facility] ID - [auto][facility] ID - techPOCT-GLUCOSE [id number] 11:47:00 Test Item Value Reference Range Interpretation Comments POC-GLUCOSE METER 243 mg/dL 70-110 H : TESTED A T [facility] 6720 (BEAKER) (test code = [facility], 1538) 58590: Director [facility]/Techni bushra ID = [id number] for SHIRLEY FOX POCT-GLUCOSE [id number] 07:33:00 Test Item Value Reference Range Interpretation Comments POC-GLUCOSE METER 263 mg/dL 70-110 H : TESTED A T [facility] 6720 (BEAKER) (test code = [facility], 1538) 42019: Director [facility]/Techni bushra ID = [id number] for HEATHER DANIEL CALCIUM, [id number] 05:08:00 Test Item Value Reference Range Interpretation Comments CALCIUM IONIZED (BEAKER) (test 1.06 mmol/L 1.12-1.27 L code = 698) PH, BLOOD (BEAKER) (test code = 7.43 1810) OXYGEN SATURATION, [id number] 04:46:00 Test Item Value Reference Range Interpretation Comments O2 SATURATION (MEASURED) (BEAKER) 64.2 % (test code = 1455) [id number] 03:48:00 Test Item Value Reference Range Interpretation Comments PHOSPHORUS (BEAKER) (test code = 2.8 mg/dL 2.3-4.7 604) [facility] ID - SANIA [id number] 03:48:00 Test Item Value Reference Range Interpretation Comments MAGNESIUM (BEAKER) (test code = 2.0 mg/dL 1.6-2.6 627) [facility] ID - SANIA MBASIC METABOLIC [id number] 03:48:00 Test Item Value Reference Range Interpretation [...] S NOT APPLICABLE FOR DIALYSIS PATIEN TS. Director [facility] ID - SANIA MCBC (HEMOGRAM ONLY)2020-01-02 03:36:00 [...] = 413) RAD, CHEST, 1 VIEW, NON [id number] 02:20:00Reason for exam:->s/p ACB, fluid overloadShould this [...] >25 epithelial cells (BEAKER) (test code = 28731) GRAM STAIN RESULT 4+ gram positive cocci in (BEAKER) (test code chains, pairs and = 55759) clusters POCT-GLUCOSE [id number] 22:45:00 Test Item Value Reference Range Interpretation Comments POC-GLUCOSE METER 237 mg/dL 70-110 H : TESTED A T [facility] 6720 (BEAKER) (test code = [facility], 1538) 01379: [facility]/Techni bushra ID = [id number] for AMBER CHU [id number] 17:09:00 Test Item Value Reference Range Interpretation Comments POTASSIUM (BEAKER) (test code = 4.0 meq/L 3.5-5.1 379) [facility] ID - NTPEvery 8 hours PRN for Creatinine greater than or equal to 2 mg/dL.[id number] 17:09:00 Test Item Value Reference Range Interpretation Comments MAGNESIUM (BEAKER) (test code = 2.2 mg/dL 1.6-2.6 627) [facility] ID - NTPEvery 8 hours PRN for Creatinine greater than or equal to 2 mg/dL.CALCIUM, [id number] 16:52:00 Test Item Value Reference Range Interpretation Comments CALCIUM IONIZED (BEAKER) (test 1.07 mmol/L 1.12-1.27 L code = 698) PH, BLOOD (BEAKER) (test code = 7.43 1810) POCT-GLUCOSE [id number] 16:46:00 Test Item Value Reference Range Interpretation Comments POC-GLUCOSE METER 213 mg/dL 70-110 H : TESTED A T [facility] 6720 (BEAKER) (test code = [facility], 153) 21956: [facility]/Techni bushra ID = [id number] for Ayesha Simeon POCT-GLUCOSE [id number] 12:18:00 Test Item Value Reference Range Interpretation Comments POC-GLUCOSE METER 330 mg/dL 70-110 H : TESTED A T [facility] 6720 (BEAKER) (test code = [facility], 153) 92566: Director [facility]/Techni bushra ID = [id number] for Eligio shelleyalanAyesha [id number] 11:46:00 Test Item Value Reference Range Interpretation Comments PROCALCITONIN (BEAKER) (test code 0.25 ng/mL <0.05 H = 3036) SEPSIS RISK (ng/mL)Low: 0.05-0.50Intermediate: 0.51-2.00High: >=[id number] 11:31:00 Test Item Value Reference Range Interpretation Comments POTASSIUM (BEAKER) (test code = 3.8 meq/L 3.5-5.1 379) [facility] ID - SANIA MEvshyann 8 hours PRN for Creatinine greater than or equal to 2 mg/dL.[id number] 11:31:00 Test Item Value Reference Range Interpretation Comments MAGNESIUM (BEAKER) (test code = 2.2 mg/dL 1.6-2.6 627) [facility] ID - SANIA MEvery 8 hours PRN for Creatinine greater than or equal to 2 mg/dL.POCT-GLUCOSE [id number] 07:57:00 Test Item Value Reference Range Interpretation Comments POC-GLUCOSE METER 250 mg/dL 70-110 H : TESTED A T [facility] 6720 (BEAKER) (test code = [facility] WEBB[facility] [place], 1538) 42922: [facility]/Techni bushra ID = [id number] for Ayesha Simeon BASIC METABOLIC [id number] 04:22:00 Test Item Value Reference Range Interpretation [...] S NOT APPLICABLE FOR DIALYSIS PATIEN TS. Director [employer] ID - SANIA [id number] 04:18:00 Test Item Value Reference Range Interpretation Comments PHOSPHORUS (BEAKER) (test code = 2.6 mg/dL 2.3-4.7 604) [facility] [employer] ID - SANIA [id number] 04:18:00 Test Item Value Reference Range Interpretation Comments MAGNESIUM (BEAKER) (test code = 1.9 mg/dL 1.6-2.6 627) Director [employer] ID - SANIA [facility] (HEMOGRAM ONLY)2020-01-01 04:12:00 [...] H (BEAKER) (test code = 413) CALCIUM, [id number] 04:01:00 Test Item Value Reference Range Interpretation Comments CALCIUM IONIZED (BEAKER) (test 1.01 mmol/L 1.12-1.27 L code = 698) PH, BLOOD (BEAKER) (test code = 7.46 1810) OXYGEN SATURATION, [id number] 04:00:00 Test Item Value Reference Range Interpretation Comments O2 SATURATION (MEASURED) (BEAKER) 65.4 % (test code = 1455) RAD, CHEST, 1 VIEW, NON [id number] 02:52:00Reason for exam:->s/p ACBShould this be performed [...] MDReport Verified Date/Time: 01/01/2020 02:52:30 POCT- GLUCOSE [id number] 22:43:00 Test Item Value Reference Range Interpretation Comments POC-GLUCOSE METER 195 mg/dL 70-110 H : TESTED A T [facility] 6720 (BEAKER) (test code = [facility], 1538) 47217: Director [facility]/Techni bushra ID = [id number] for SANDER PIZARROSY POCT-GLUCOSE [id number] 16:47:00 Test Item Value Reference Range Interpretation Comments POC-GLUCOSE METER 213 mg/dL 70-110 H : TESTED A T [facility] 6720 (BEAKER) (test code = [facility], 1538) 95393: Director [facility]/Techni bushra ID = [id number] for SHIRLEY FOX [id number] 14:33:00 Test Item Value Reference Range Interpretation Comments POTASSIUM (BEAKER) (test code = 3.9 meq/L 3.5-5.1 379) Director [facility] ID - NTPCheck Serum Potassium level 2 hours after oral potassium replacement completed or 30 min after intravenous potassium replacement. [id number] 14:33:00 Test Item Value Reference Range Interpretation Comments MAGNESIUM (BEAKER) (test code = 2.1 mg/dL 1.6-2.6 627) Director [facility] ID - NTPCheck Serum Potassium level 2 hours after oral potassium replacement completed or 30 min after intravenous potassium replacement.LACTIC ACID, [id number] 12:28:00 Test Item Value Reference Range Interpretation Comments LACTATE BLOOD VENOUS (2) (BEAKER) 1.90 mmol/L 0.50-2.20 (test code = 2872) Director [facility] ID - NTPPOCT-GLUCOSE [id number] 11:20:00 Test Item Value Reference Range Interpretation Comments POC-GLUCOSE METER 183 mg/dL 70-110 H : TESTED A T [facility] 6720 (BEAKER) (test code = [facility], 1538) 44219: Director [facility]/Techni bushra ID = [id number] for SHIRLEY FOX POCT-GLUCOSE [id number] 06:30:00 Test Item Value Reference Range Interpretation Comments POC-GLUCOSE METER 161 mg/dL 70-110 H : TESTED A T [facility] 6720 (BEAKER) (test code = [facility], 1538) 38622: Director [facility]/Techni bushra ID = [id number] for FERDINAND JARAMILLO BASIC METABOLIC [id number] 05:21:00 Test Item Value Reference Range Interpretation [...] S NOT APPLICABLE FOR DIALYSIS PATIEN TS. Director [facility] ID - SANIA MOXYGEN SATURATION, [id number] 05:17:00 Test Item Value Reference Range Interpretation Comments O2 SATURATION (MEASURED) (BEAKER) 97.2 % (test code = 1455) [id number] 05:15:00 Test Item Value Reference Range Interpretation Comments PHOSPHORUS (BEAKER) (test code = 2.6 mg/dL 2.3-4.7 604) Director [facility] ID - SANIA [id number] 05:15:00 Test Item Value Reference Range Interpretation Comments MAGNESIUM (BEAKER) (test code = 2.0 mg/dL 1.6-2.6 627) Director [facility] ID - SANIA MBLOOD GAS, [id number] 04:47:00 Test Item Value Reference Range Interpretation [...] (test code = 1819) 40.0 % CALCIUM, [id number] 04:47:00 Test Item Value Reference Range Interpretation [...] = 413) RAD, CHEST, 1 VIEW, NON [id number] 03:58:00Reason for exam:->s/p ACBShould this be performed [...] Stable contours. Additional findings: None. Signed: Sen [facility] Verified Date/Time: 12/31/2019 03:58:10 POCT-GLUCOSE [id number] 23:57:00 Test Item Value Reference Range Interpretation Comments POC-GLUCOSE METER 133 mg/dL 70-110 H : TESTED A T [facility] 6720 (Charlie App) (test code = GREG Erin [place], 1538) 72577: Director [facility]/Techni bushra ID = [id number] for SHAKA PIZARRO POCT-GLUCOSE [id number] 21:43:00 Test Item Value Reference Range Interpretation Comments POC-GLUCOSE METER 135 mg/dL 70-110 H : TESTED A T [facility] 6720 (Charlie App) (test code = [facility], 1538) 78632: Director [facility]/Techni bushra ID = [id number] for SHAKA PIZARRO POCT-GLUCOSE [id number] 18:50:00 Test Item Value Reference Range Interpretation Comments POC-GLUCOSE METER 126 mg/dL 70-110 H : TESTED A T [facility] 6720 (BEAKER) (test code = [facility], 1538) 21067: Director [facility]/Techni bushra ID = [id number] for Ga rner, Steve [id number] 17:38:00 Test Item Value Reference Range Interpretation Comments MAGNESIUM (BEAKER) (test code = 2.1 mg/dL 1.6-2.6 627) Director [facility] ID - SANIA MBASIC METABOLIC [id number] 17:38:00 Test Item Value Reference Range Interpretation [...] S NOT APPLICABLE FOR DIALYSIS PATIEN TS. Director [facility] ID - SANIA MPOCT-GLUCOSE [id number] 16:38:00 Test Item Value Reference Range Interpretation Comments POC-GLUCOSE METER 129 mg/dL 70-110 H : TESTED A T [facility] 6720 (BEAKER) (test code = [facility], 1538) 75794: Director [facility] [employer]/Techni bushra ID = [id number] for Ga rner, Steve POCT-GLUCOSE [id number] 14:43:00 Test Item Value Reference Range Interpretation Comments POC-GLUCOSE METER 138 mg/dL 70-110 H : TESTED A T [facility] 6720 (BEAKER) (test code = [facility], 1538) 39976: Director [facility]/Techni bushra ID = [id number] for Steve Clemens POCT-GLUCOSE [id number] 11:39:00 Test Item Value Reference Range Interpretation Comments POC-GLUCOSE METER 153 mg/dL 70-110 H : TESTED A T [facility] 6720 (BEAKER) (test code = [facility], 1538) 19766: Director [facility]/Techni bushra ID = [id number] for Steve Clemens POCT-GLUCOSE [id number] 08:58:00 Test Item Value Reference Range Interpretation Comments POC-GLUCOSE METER 183 mg/dL 70-110 H : TESTED A T [facility] 6720 (BEAKER) (test code = [facility], 1538) 99520: Director [facility]/Techni bushra ID = [id number] for Steve Clemens LACTIC ACID, [id number] 06:39:00 Test Item Value Reference Range Interpretation Comments LACTATE BLOOD 4.0 mmol/L 0.5-2.2 HH Specimen marke dly ARTERIAL (2) (BEAKER) hemoly zed (test code = 2874) Director [facility] ID - SANIA MBLOOD GAS, [id number] 05:58:00 Test Item Value Reference Range Interpretation [...] (test code = 1819) 100.0 % GLUCOSE-STAT [id number] 05:58:00 Test Item Value Reference Range Interpretation Comments GLUCOSE RANDOM (BEAKER) (test code 201 mg/dL 70-110 H = 652) HGB/HCT (H&H) - STAT [id number] 05:58:00 Test Item Value Reference Range Interpretation Comments HEMOGLOBIN (BEAKER) (test code = 8.2 g/dL 13.0-16.8 L 410) HEMATOCRIT (BEAKER) (test code = 24.0 % 40.0-50.0 L 411) SODIUM NA-STAT [id number] 05:57:00 Test Item Value Reference Range Interpretation Comments SODIUM (BEAKER) (test code = 381) 136 meq/L 136-145 POTASSIUM-STAT [id number] 05:57:00 Test Item Value Reference Range Interpretation [...] 0-0 (BEAKER) (test code = 413) POCT-GLUCOSE [id number] 05:18:00 Test Item Value Reference Range Interpretation Comments POC-GLUCOSE METER 202 mg/dL 70-110 H : [facility] (BEAKER) (test code = [facility] [place], 1538) 20482: Director [facility]/Techni bushra ID = [id number] for DE CKER, ALLA LACTIC ACID, [id number] 04:12:00 Test Item Value Reference Range Interpretation Comments LACTATE BLOOD VENOUS (2) (BEAKER) 4.68 mmol/L 0.50-2.20 HH (test code = 2872) Director [facility] ID - SANIA MBASIC METABOLIC [id number] 04:09:00 Test Item Value Reference Range Interpretation [...] S NOT APPLICABLE FOR DIALYSIS PATIEN TS. Director [facility] ID - SANIA [id number] 04:01:00 Test Item Value Reference Range Interpretation Comments PHOSPHORUS (BEAKER) (test code = 3.7 mg/dL 2.3-4.7 604) Director [facility] ID - SANIA [id number] 04:01:00 Test Item Value Reference Range Interpretation Comments MAGNESIUM (BEAKER) (test code = 1.8 mg/dL 1.6-2.6 627) Director [facility] ID - SANIA MBLOOD GAS, [id number] 03:44:00 Test Item Value Reference Range Interpretation [...] (test code = 1819) 40.0 % CALCIUM, [id number] 03:20:00 Test Item Value Reference Range Interpretation Comments CALCIUM IONIZED (BEAKER) (test 1.05 mmol/L 1.12-1.27 L code = 698) PH, BLOOD (BEAKER) (test code = 7.36 1810) OXYGEN SATURATION, [id number] 03:16:00 Test Item Value Reference Range Interpretation Comments O2 SATURATION (MEASURED) (BEAKER) 55.9 % (test code = 1455) RAD, CHEST, 1 VIEW, NON [id number] 02:29:00Reason for exam:->s/p ACBShould this be performed at the bedside?->YesFINAL REPORT CLINICAL INDICATION: Postop Comparison: 12/29/2019 The cardiomedi astinal contours are stable. The lung volumes remain low. Central pulmonary vascular congestion and bilateral parenchymal opacities are unchanged. There is no pneumothorax. Support lines are stable. Signed: Evie Alvares Verified Date/Time: 12/30/2019 02:29:11 POCT-GLUCOSE [id number] 02:26:00 Test Item Value Reference Range Interpretation Comments POC-GLUCOSE METER 227 mg/dL 70-110 H : TESTED A T [facility] 6720 (BEAKER) (test code = [facility] [place], 1538) 74681: Director [facility] [employer]/Techni bushra ID = [id number] for ALLA FALK LACTIC ACID, [id number] 01:10:00 Test Item Value Reference Range Interpretation Comments LACTATE BLOOD ARTERIAL (2) 3.9 mmol/L 0.5-2.2 H (BEAKER) (test code = 2874) Director [facility] ID - SANIA MBLOOD GAS, [id number] 01:04:00 Test Item Value Reference Range Interpretation [...] (test code = 1819) 40.0 % GLUCOSE-STAT [id number] 01:04:00 Test Item Value Reference Range Interpretation Comments GLUCOSE RANDOM (BEAKER) (test code 226 mg/dL 70-110 H = 652) HGB/HCT (H&H) - STAT [id number] 01:04:00 Test Item Value Reference Range Interpretation Comments HEMOGLOBIN (BEAKER) (test code = 8.2 g/dL 13.0-16.8 L 410) HEMATOCRIT (BEAKER) (test code = 24.0 % 40.0-50.0 L 411) SODIUM NA-STAT [id number] 01:03:00 Test Item Value Reference Range Interpretation Comments SODIUM (BEAKER) (test code = 381) 136 meq/L 136-145 POTASSIUM-STAT [id number] 01:03:00 Test Item Value Reference Range Interpretation Comments POTASSIUM (BEAKER) (test code = 4.5 meq/L 3.6-5.5 379) POCT-GLUCOSE [id number] 00:20:00 Test Item Value Reference Range Interpretation Comments POC-GLUCOSE METER 228 mg/dL 70-110 H : TESTED A T [facility] 6720 (BEAKER) (test code = [facility], 1538) 97255: Director [facility] [employer]/Techni bushra ID = [id number] for DE CKER, ALLA LACTIC ACID, [id number] 22:13:00 Test Item Value Reference Range Interpretation Comments LACTATE BLOOD 4.5 mmol/L 0.5-2.2 HH Specimen sligh tly ARTERIAL (2) (BEAKER) hemoly zed (test code = 2874) Director [facility] ID - BSPOCT-GLUCOSE [id number] 22:07:00 Test Item Value Reference Range Interpretation Comments POC-GLUCOSE METER 237 mg/dL 70-110 H : TESTED A T [facility] 6720 (BEAKER) (test code = [facility], 1538) 00328: Director [facility] [employer]/Techni bushra ID = [id number] for DE CKER, ALLA POCT-GLUCOSE [id number] 22:06:00 Test Item Value Reference Range Interpretation Comments POC-GLUCOSE METER 235 mg/dL 70-110 H : TESTED A T [facility] 6720 (BEAKER) (test code = [facility], 1538) 50498: Director [facility]/Techni bushra ID = [id number] for DE CKER, ALLA LACTIC ACID, [id number] 19:00:00 Test Item Value Reference Range Interpretation Comments LACTATE BLOOD ARTERIAL (2) 4.2 mmol/L 0.5-2.2 HH (BEAKER) (test code = 2874) Director [facility] ID - BSBASIC METABOLIC [id number] 18:58:00 Test Item Value Reference Range Interpretation [...] S NOT APPLICABLE FOR DIALYSIS PATIEN TS. Director [facility] ID - [id number] 18:48:00 Test Item Value Reference Range Interpretation Comments MAGNESIUM (BEAKER) (test code = 2.1 mg/dL 1.6-2.6 627) Director [facility] ID - BSBLOOD GAS, [id number] 18:33:00 Test Item Value Reference Range Interpretation [...] (test code = 1819) 40.0 % CALCIUM, [id number] 18:33:00 Test Item Value Reference Range Interpretation [...] 0-0 (BEAKER) (test code = 413) POCT-GLUCOSE [id number] 18:21:00 Test Item Value Reference Range Interpretation Comments POC-GLUCOSE METER 209 mg/dL 70-110 H : TESTED A T [facility] 6720 (BEAKER) (test code = [facility], 1538) 52280: Director [facility]/Techni bushra ID = [id number] for DEVAUGHN JAVIER PLATELET AGGREGATION: FUNCTION [id number] 18:20:00 Test Item Value Reference Range Interpretation Comments [id number] Freddy Sharp M.D. (BEAKER) (test code = (electonic signature) 1754) PLATELET COUNT AGG 194 K/CU MM 150-450 [...] may be falsely low with platelet counts<75,000/cu mm.Director [facility] ID- [id number] AGGREGATION: FUNCTION SCREEN 2019-12-29 18:16:00 Test Item Value Reference Range Interpretation Comments [id number] Freddy Sharp M.D. (BEAKER) (test code = (electonic signature) 4499) PLATELET COUNT AGG 258 K/CU MM 150-450 [...] may be falsely low with platelet counts<75,000/cu mm.Director [facility] ID- 6000POCT-GLUCOSE [id number] 18:12:00 Test Item Value Reference Range Interpretation Comments POC-GLUCOSE METER 210 mg/dL 70-110 H : TESTED A T [facility] 6720 (BEAKER) (test code = [place], 1538) 85842: Director [facility]/Techni bushra ID = [id number] for DEVAUGHN JAVIER SODIUM NA-STAT [id number] 16:40:00 Test Item Value Reference Range Interpretation Comments SODIUM (BEAKER) (test code = 381) 136 meq/L 136-145 POTASSIUM-STAT [id number] 16:40:00 Test Item Value Reference Range Interpretation Comments POTASSIUM (BEAKER) (test code = 4.0 meq/L 3.6-5.5 379) BLOOD GAS, [id number] 16:40:00 Test Item Value Reference Range Interpretation [...] (test code = 1819) 40.0 % GLUCOSE-STAT [id number] 16:40:00 Test Item Value Reference Range Interpretation Comments GLUCOSE RANDOM (BEAKER) (test code 217 mg/dL 70-110 H = 652) HGB/HCT (H&H) - STAT [id number] 16:40:00 Test Item Value Reference Range Interpretation Comments HEMOGLOBIN (BEAKER) (test code = 9.4 g/dL 13.0-16.8 L 410) HEMATOCRIT (BEAKER) (test code = 28.0 % 40.0-50.0 L 411) HEMOGLOBIN [id number] 16:12:00 Test Item Value Reference Range Interpretation [...] CONCENTRATION Adequate (CELLAVISION)(BEAKER) (test code = 3438) Director [facility] ID - Ga comments: Slide comments:POCT-GLUCOSE METER 2019-12-29 15:23:00 Test Item Value Reference Range Interpretation Comments POC-GLUCOSE METER 203 mg/dL 70-110 H : TESTED A T [facility] 6720 (BEAKER) (test code = GREG Khan [facility], 1538) 48108: Director [facility]/Techni bushra ID = [id number] for DEVAUGHN JAVIER BLOOD GAS, [id number] 15:16:00 Test Item Value Reference Range Interpretation [...] (test code = 1819) 40.0 % GLUCOSE-STAT [id number] 15:16:00 Test Item Value Reference Range Interpretation Comments GLUCOSE RANDOM (BEAKER) (test code 199 mg/dL 70-110 H = 652) HGB/HCT (H&H) - STAT [id number] 15:16:00 Test Item Value Reference Range Interpretation Comments HEMOGLOBIN (BEAKER) (test code = 9.7 g/dL 13.0-16.8 L 410) HEMATOCRIT (BEAKER) (test code = 29.0 % 40.0-50.0 L 411) SODIUM NA-STAT [id number] 15:14:00 Test Item Value Reference Range Interpretation Comments SODIUM (BEAKER) (test code = 381) 138 meq/L 136-145 POTASSIUM-STAT [id number] 15:14:00 Test Item Value Reference Range Interpretation Comments POTASSIUM (BEAKER) (test code = 4.0 meq/L 3.6-5.5 379) CBC W/PLT COUNT & AUTO [id number] 15:13:00 Test Item Value Reference Range Interpretation [...] PERCENT (BEAKER) (test code = 2801) LIPID [id number] 14:51:00 Test Item Value Reference Range Interpretation [...] Borderline 130-159 High 160-189 Very High >=190 Director [facility] ID - NTPSpecimen slightly lipemicPOCT-GLUCOSE METER 2019-12-29 14:23:00 Test Item Value Reference Range Interpretation Comments POC-GLUCOSE METER 152 mg/dL 70-110 H : TESTED A T [facility] 6720 (BEAKER) (test code = [place], 1538) 71326: Director [facility]/Techni bushra ID = [id number] for Farhana Carlos [id number] 14:21:00 Test Item Value Reference Range Interpretation Comments PHOSPHORUS (BEAKER) (test code = 4.4 mg/dL 2.3-4.7 604) Director [facility] ID - [id number] 14:21:00 Test Item Value Reference Range Interpretation Comments MAGNESIUM (BEAKER) (test code = 2.3 mg/dL 1.6-2.6 627) Director [facility] ID - NTPCOMPREHENSIVE METABOLIC [id number] 14:21:00 Test Item Value Reference Range Interpretation [...] S NOT APPLICABLE FOR DIALYSIS PATIEN TS. Director [facility] ID - NTPSpecimen slightly lipemicTHROMBOELASTOGRAPH (TEG)2019-12-29 14:20:00 [...] % 0.0-5.0 code = 1414) LACTIC ACID, [id number] 14:12:00 Test Item Value Reference Range Interpretation Comments LACTATE BLOOD ARTERIAL (2) 2.8 mmol/L 0.5-2.2 H (BEAKER) (test code = 2874) Director [facility] ID - [id number] 14:08:00 Test Item Value Reference Range Interpretation Comments FIBRINOGEN LEVEL (BEAKER) (test 243 mg/dl 225-434 code = 658) 6 hours after starting heparin infusion and as indicated per sliding scale [id number] 14:08:00 Test Item Value Reference Range Interpretation [...] heparin infusion and as indicated per sliding [id number] 14:08:00 Test Item Value Reference Range Interpretation Comments PARTIAL THROMBOPLASTIN TIME 26.4 seconds 22.5-36.0 (BEAKER) (test code = 760) PROTHROMBIN TIME/[id number] 14:07:00 Test Item Value Reference Range Interpretation [...] mechanical heart valves.RAD, CHEST, 1 VIEW, NON [id number] 13:58:00Reason for exam:->s/p ACB, intubatedShould this be [...] Gibson Verified Date/Time: 12/29/2019 13:58:16 Reading Location: [facility] Reading Room CBC W/PLT COUNT & AUTO [id number] 13:56:00 Test Item Value Reference Range Interpretation [...] (BEAKER) (test code = 2801) BLOOD GAS, [id number] 13:21:00 Test Item Value Reference Range Interpretation [...] code = 1819) 50.0 % OXYGEN SATURATION, [id number] 13:21:00 Test Item Value Reference Range Interpretation Comments O2 SATURATION (MEASURED) (BEAKER) 74.3 % (test code = 1455) [id number] 12:27:00 Test Item Value Reference Range Interpretation Comments ACTIVATED CLOTTING TIME 98 sec : 74 -137 seconds, (BEAKER) (test code = Baseli ne: TESTED AT 441) [address], [facility] 30: Director [facility]/Techni bushra ID = [id number] for ZARAGOZA Y, HARISH [id number] 12:27:00 Test Item Value Reference Range Interpretation Comments ACTIVATED CLOTTING TIME 516 sec : 74 -137 seconds, (BEAKER) (test code = Baseli ne: TESTED AT 441) [address], [facility] 30: Director [facility]/Techni bushra ID = [id number] for ZARAGOZA Y, HARISH [id number] 12:27:00 Test Item Value Reference Range Interpretation Comments ACTIVATED CLOTTING TIME 483 sec : 74 -137 seconds, (BEAKER) (test code = Baseli ne: TESTED AT 441) [address], [facility] 30: Director [facility]/Techni bushra ID = [id number] for ZARAGOZA Y, HARISH [id number] 12:27:00 Test Item Value Reference Range Interpretation Comments ACTIVATED CLOTTING TIME 643 sec : 74 -137 seconds, (BEAKER) (test code = Kevin ne: TESTED AT 441) [facility] 67[address] [facility], 770 30: Director [facility]/Techni bushra ID = [id number] for HARISH GOOD [id number] 12:27:00 Test Item Value Reference Range Interpretation Comments ACTIVATED CLOTTING TIME 103 sec : 74 -137 seconds, (BEAKER) (test code = Kevin ne: TESTED AT 441) [facility] 67[address] [facility], 770 30: Director [facility]/Techni bushra ID = [id number] for NIK YHARISH BLOOD GAS, [id number] 12:08:00 Test Item Value Reference Range Interpretation [...] (test code = 1819) 100.0 % GLUCOSE-STAT [id number] 12:08:00 Test Item Value Reference Range Interpretation Comments GLUCOSE RANDOM (BEAKER) (test code 203 mg/dL 70-110 H = 652) HGB/HCT (H&H) - STAT [id number] 12:08:00 Test Item Value Reference Range Interpretation [...] H (test code = 1413) SODIUM NA-STAT [id number] 12:07:00 Test Item Value Reference Range Interpretation Comments SODIUM (BEAKER) (test code = 381) 135 meq/L 136-145 L POTASSIUM-STAT [id number] 12:07:00 Test Item Value Reference Range Interpretation Comments POTASSIUM (BEAKER) (test code = 4.0 meq/L 3.6-5.5 379) CALCIUM, [id number] 12:07:00 Test Item Value Reference Range Interpretation Comments CALCIUM IONIZED (BEAKER) (test 1.17 mmol/L 1.12-1.27 code = 698) PH, BLOOD (BEAKER) (test code = 7.33 1810) PROTHROMBIN [id number] 11:39:00 Test Item Value Reference Range Interpretation [...] INR is2.5-3.5 for patients wiht mechanical heart valves.[id number] 11:39:00 Test Item Value Reference Range Interpretation Comments PARTIAL THROMBOPLASTIN TIME 25.9 seconds 22.5-36.0 (BEAKER) (test code = 760) [id number] 11:39:00 Test Item Value Reference Range Interpretation Comments FIBRINOGEN LEVEL (BEAKER) (test 202 mg/dl 225-434 L code = 658) CALCIUM, [id number] 11:33:00 Test Item Value Reference Range Interpretation Comments CALCIUM IONIZED (BEAKER) (test 1.15 mmol/L 1.12-1.27 code = 698) PH, BLOOD (BEAKER) (test code = 7.33 1810) BLOOD GAS, [id number] 11:33:00 Test Item Value Reference Range Interpretation [...] (test code = 1819) 100.0 % GLUCOSE-STAT [id number] 11:33:00 Test Item Value Reference Range Interpretation Comments GLUCOSE RANDOM (BEAKER) (test code 210 mg/dL 70-110 H = 652) HGB/HCT (H&H) - STAT [id number] 11:33:00 Test Item Value Reference Range Interpretation Comments HEMOGLOBIN (BEAKER) (test code = 7.8 g/dL 13.0-16.8 L 410) HEMATOCRIT (BEAKER) (test code = 23.0 % 40.0-50.0 L 411) SODIUM NA-STAT [id number] 11:31:00 Test Item Value Reference Range Interpretation Comments SODIUM (BEAKER) (test code = 381) 135 meq/L 136-145 L POTASSIUM-STAT [id number] 11:31:00 Test Item Value Reference Range Interpretation Comments POTASSIUM (BEAKER) (test code = 4.2 meq/L 3.6-5.5 379) PLATELET [id number] 11:29:00 Test Item Value Reference Range Interpretation Comments PLATELET COUNT (BEAKER) (test 200 K/CU MM 150-450 code = 756) [facility] ID - [id number] GAS, [id number] 11:08:00 Test Item Value Reference Range Interpretation [...] code = 1819) 100.0 % SODIUM NA-STAT [id number] 11:08:00 Test Item Value Reference Range Interpretation Comments SODIUM (BEAKER) (test code = 381) 134 meq/L 136-145 L GLUCOSE-STAT [id number] 11:08:00 Test Item Value Reference Range Interpretation Comments GLUCOSE RANDOM (BEAKER) (test code 222 mg/dL 70-110 H = 652) HGB/HCT (H&H) - STAT [id number] 11:08:00 Test Item Value Reference Range Interpretation Comments HEMOGLOBIN (BEAKER) (test code = 7.9 g/dL 13.0-16.8 L 410) HEMATOCRIT (BEAKER) (test code = 23.0 % 40.0-50.0 L 411) CALCIUM, [id number] 11:08:00 Test Item Value Reference Range Interpretation Comments CALCIUM IONIZED (BEAKER) (test 0.98 mmol/L 1.12-1.27 L code = 698) PH, BLOOD (BEAKER) (test code = 7.34 1810) POTASSIUM-STAT [id number] 11:07:00 Test Item Value Reference Range Interpretation Comments POTASSIUM (BEAKER) (test code = 4.0 meq/L 3.6-5.5 379) HEMOGLOBIN [id number] 11:05:00 Test Item Value Reference Range Interpretation Comments HEMOGLOBIN A1C (BEAKER) (test code = 7.5 % 4.3-6.1 H 368) POTASSIUM-STAT [id number] 10:26:00 Test Item Value Reference Range Interpretation Comments POTASSIUM (BEAKER) (test code = 4.7 meq/L 3.6-5.5 379) BLOOD GAS, [id number] 10:26:00 Test Item Value Reference Range Interpretation [...] code = 1819) 70.0 % SODIUM NA-STAT [id number] 10:26:00 Test Item Value Reference Range Interpretation Comments SODIUM (BEAKER) (test code = 381) 133 meq/L 136-145 L GLUCOSE-STAT [id number] 10:26:00 Test Item Value Reference Range Interpretation Comments GLUCOSE RANDOM (BEAKER) (test code 229 mg/dL 70-110 H = 652) HGB/HCT (H&H) - STAT [id number] 10:26:00 Test Item Value Reference Range Interpretation Comments HEMOGLOBIN (BEAKER) (test code = 8.2 g/dL 13.0-16.8 L 410) HEMATOCRIT (BEAKER) (test code = 24.0 % 40.0-50.0 L 411) POTASSIUM-STAT [id number] 10:01:00 Test Item Value Reference Range Interpretation Comments POTASSIUM (BEAKER) (test code = 3.9 meq/L 3.6-5.5 379) BLOOD GAS, [id number] 10:01:00 Test Item Value Reference Range Interpretation [...] code = 1819) 80.0 % SODIUM NA-STAT [id number] 10:01:00 Test Item Value Reference Range Interpretation Comments SODIUM (BEAKER) (test code = 381) 134 meq/L 136-145 L GLUCOSE-STAT [id number] 10:01:00 Test Item Value Reference Range Interpretation Comments GLUCOSE RANDOM (BEAKER) (test code 210 mg/dL 70-110 H = 652) HGB/HCT (H&H) - STAT [id number] 10:01:00 Test Item Value Reference Range Interpretation Comments HEMOGLOBIN (BEAKER) (test code = 8.2 g/dL 13.0-16.8 L 410) HEMATOCRIT (BEAKER) (test code = 24.0 % 40.0-50.0 L 411) CALCIUM, [id number] 08:20:00 Test Item Value Reference Range Interpretation Comments CALCIUM IONIZED (BEAKER) (test 1.12 mmol/L 1.12-1.27 code = 698) PH, BLOOD (BEAKER) (test code = 7.36 1810) BLOOD GAS, [id number] 08:19:00 Test Item Value Reference Range Interpretation [...] (test code = 1819) 100.0 % GLUCOSE-STAT [id number] 08:19:00 Test Item Value Reference Range Interpretation Comments GLUCOSE RANDOM (BEAKER) (test code 200 mg/dL 70-110 H = 652) HGB/HCT (H&H) - STAT [id number] 08:19:00 Test Item Value Reference Range Interpretation Comments HEMOGLOBIN (BEAKER) (test code = 12.9 g/dL 13.0-16.8 L 410) HEMATOCRIT (BEAKER) (test code = 38.0 % 40.0-50.0 L 411) SODIUM NA-STAT [id number] 08:18:00 Test Item Value Reference Range Interpretation Comments SODIUM (BEAKER) (test code = 381) 138 meq/L 136-145 POTASSIUM-STAT [id number] 08:18:00 Test Item Value Reference Range Interpretation Comments POTASSIUM (BEAKER) (test code = 3.5 meq/L 3.6-5.5 L 379) RAD, CHEST, 1 VIEW, NON [id number] 06:14:00Reason for exam:->pre op screenShould this be [...] is no acute bony abnormality. Signed: [facility] Verified Date/Time: 12/29/2019 06:14:22 [facility] (HEMOGRAM ONLY)2019-12-29 05:55:00 Test Item Value Reference [...] = 413) RAD, CHEST, 1 VIEW, NON [id number] 03:04:00Reason for exam:->SOBShould this be performed at the bedside?->YesFINAL REPORT History: Shortness of breath. Comparison: None. Findings: 2 frontal images of the chest is submitted. The cardiomediastinal contours are unremarkable. There is no focal consolidation, pneumothorax, large pleural effusion or evidence of overt pulmonary edema. There is no acute bony abnormality. Impression: No acute abnormality. Signed: Evie Alvares Verified Date/Time: 12/29/2019 03:04:51 [id number] 23:45:00 Test Item Value Reference Range Interpretation Comments ACTIVATED CLOTTING TIME 76 sec : 74 -137 seconds, (BEAKER) (test code = Baseli ne: TESTED AT 441) [facility] [address] [place] [place], [address]: [employer]/Techni bushra ID = [id number] for Kam Person SARS-COV2/RT-PCR ([facility])2019-12-28 20:30:00 Test Item Value Reference Range Interpretation Comments SARS-COV2/RT-PCR (test Not Detected Not Detected, Negative code = 4588980) SARS-COV-[address] [facility] (test code = 0887219) Negative results do not preclude SARS-CoV-2 infection [...] of the Act.Fact Sheet for Healthcare Pro viders:https://www.Makoo.[employer]/Documents/Xpert%20Xpress%20SARS%20CoV-2/Fact%20Sh eets/986-5762%28STRQ-IOW-3%20HEALTHCARE%20PROVIDERS%20FACT%20SHEET.pdfFact Sheet for Healthcare Patients:https://www.[employer]Direct.[employer]/Documents/Xpert%20Xpress%20SARS%20CoV-2/Fact%20Sheets/302-9755%20SARS-COV -2%20PATIENT%20FACT%20SHEET.pdfPerforming Laboratory:[facility], [place] [address]VADOEDFG [id number] 19:48:00 Test Item Value Reference Range Interpretation [...] failure, acidosis, acute neurological disease, and persistent tachyarrhythmia.[employer] ID - [id number] 19:42:00 Test Item Value Reference Range Interpretation Comments MAGNESIUM (BEAKER) 1.8 mg/dL 1.6-2.6 Specimen slightly (test code = 627) hemolyzed [employer] ID - BSBASIC METABOLIC [id number] 19:42:00 Test Item Value Reference Range Interpretation [...] S NOT APPLICABLE FOR DIALYSIS PATIEN TS. [employer] ID - BSLIPID [id number] 19:42:00 Test Item Value Reference Range Interpretation [...] Borderline 130-159 High 160-189 Very High >=190 [employer] ID - [id number] 19:41:00 Test Item Value Reference Range Interpretation [...] heart valves.Prior to initiating heparinPrior to initiating [id number] 19:41:00 Test Item Value Reference Range Interpretation [...] WBC 0-0 (BEAKER) (test code = 413) [id number] 22:00:00 Test Item Value Reference Range Interpretation Comments GLUBED (test code = GLUBED) 238 mg/dL 60-125 H - XR KNEE 1 OR 2 V [id number] 11:25:00 Patient Name: AGUEDA COOK Unit No: [id number] EXAMS: CPT CODE: [id number] XR KNEE 1 OR 2 [place] LT [address]49 LEFT KNEE 2 VIEWS PORTABLE COMMENT: The patient is status post joint replacement which is articulating normally. at 1125 Reported and signed by: Igor Vallejo MD CC: Beverly Escobar MD Technologist: ARMANDO PORRAS. RT(R) Transcribed D/ (1125) tDOMITILA.JCL [facility] NAME: AGUEDA COOK [address] PHYS: YANN. - Beverly Escobar : 1955 AGE: 63 SEX: M [place], [place] [address] LOC: Y.319 A PHONE #: [phone] EXAM DATE: 07/28/2019 STATUS: ADM IN FAX #: [phone] RAD #: D/C DT PAGE 1 Signed Report Patient Name: AGUEDA COOK Unit No: [id number] EXAMS: CPT CODE: [id number] XR KNEE 1 OR 2 V LT [address] <Continued> Orig Print D/T: S: 07/29/2019 (1128) [facility] NAME: AGUEDA COOK [address] PHYS: YANN.06 - ShawnBeverlyafua Dietz : 1955 AGE: 63 SEX: M [place], [place] [address] LOC: Y.319 A PHONE #: [phone] EXAM DATE: 07/28/2019 STATUS: ADM IN FAX #: [phone] RAD #: D/C DT PAGE 2 Signed ReportGLUBED 2019-07-29 08:39:00 Test Item Value Reference Range Interpretation Comments GLUBED (test code = GLUBED) 248 mg/dL 60-125 H BASIC METABOLIC [id number] 06:33:00 Test Item Value Reference Range Interpretation [...] RATE (test code = GFR) mL/mi n/1.73 p4Nzwmtntge Range:Healthy Adults >90 mL/min/1.73 m2 For Chronic Kidney Disease: St age II Mild Decrease in GFR 60-90 St age III Moderate Decrease in GFR 30-59 Stage IV Severe Decre ase in GFR 15- 29 Stage V Kidney Failure <15 CREATININE (test code 1.23 mg/dL 0.55-1.30 N = CREAT) CALCIUM (test code = 7.6 mg/dL 8.2-10.1 L CA) HGB [id number] 05:49:00 Test Item Value Reference Range Interpretation Comments HEMOGLOBIN (test code = HGB) 11.8 g/dL 12-16 L HEMATOCRIT (test code = HCT) 35.8 % 37-47 L [id number] 05:26:00 Test Item Value Reference Range Interpretation Comments GLUBED (test code = GLUBED) 200 mg/dL 60-125 H [id number] 20:07:00 Test Item Value Reference Range Interpretation Comments GLUBED (test code = GLUBED) 259 mg/dL 60-125 H [id number] 07:39:00 Test Item Value Reference Range Interpretation [...] be considered for these patients.DONE A T: [facility] [address] [facility] [address] [facility] [place] [address] PROTHROMBIN [id number] 20:30:00 Test Item Value Reference Range Interpretation [...] Patient is on Heparin Drip? NOTHROMBOPLASTIN TIME [id number] 20:30:00 Test Item Value Reference Range Interpretation Comments PTT ACTIVATED (test code = APTT) 32.9 secs 24.9-37.0 N SPECIMEN COMMENT: PATIENT ALSO ON PLAVIXIS PATIENT ON ANTICOAGULANTS ? YLIST ANTICOAGULANT/ANTI PLT MEDICATION : AspirinHas Lab been notified if Patient is on Heparin Drip? NOCOMPREHENSIVE METABOLIC [id number] 20:25:00 Test Item Value Reference Range Interpretation [...] RATE (test code = GFR) mL/mi n/1.73 q8Nbdfqgdzk Range:Healthy Adults >90 mL/min/1.73 m2 For Chronic [...] TOTAL (test code = ALKP) CBC W/AUTO [id number] 17:54:00 Test Item Value Reference Range Interpretation [...] - XR KNEE 1 OR 2 V [id number] 12:44:00 Patient Name: AGUEDA COOK Unit No: [id number] EXAMS: CPT CODE: [id number] XR KNEE 1 OR 2 V RT [address]93 RIGHT KNEE 2 VIEWS PORTABLE COMMENT: The patient is status post joint replacement which is articulating normally. at 1244 Reported and signed by: Igor Vallejo MD CC: Beverly Escobar MD Technologist: DAVION PEREZ (RT.R) Transcribed D/ (1244) t.JONATHAN.JCL [facility] NAME: AGUEDA COOK [address] PHYS: YANN. Beverly Escobar J Luis : 1955 AGE: 63 SEX: M [place], [place] [address] LOC: Y.520 A PHONE #: [phone] EXAM DATE: 01/28/2019 STATUS: DIS IN FAX #: [phone] #: D/C DT 01/29/2019 PAGE 1 Signed Report Patient Name: AGUEDA COOK Unit No: [id number] EXAMS: CPT CODE: [id number] XR KNEE 1 OR 2 V RT 92436 <Continued> Orig Print D/T: S: 01/31/2019 (1244) [facility] NAME: AGUEDA COOK [address] PHYS: Danay Escobarafua Dietz : 1955 AGE: 63 SEX: M [place], [place] [address] LOC: Y.520 A PHONE #: [phone] EXAM DATE: 01/28/2019 STATUS: DIS IN FAX #: [phone] RAD #: D/C DT 01/29/2019 PAGE 2 Signed ReportBASIC METABOLIC [id number] 07:38:00 Test Item Value Reference Range Interpretation [...] RATE (test code = GFR) mL/mi n/1.73 i1Xebnpsfit Range:Healthy Adults >90 mL/min/1.73 m2 For Chronic Kidney Disease: St age II Mild Decrease in GFR 60-90 St age III Moderate Decrease in GFR 30-59 Stage IV Severe Decre ase in GFR 15- 29 Stage V Kidney Failure <15 CREATININE (test code 1.35 mg/dL 0.55-1.30 H = CREAT) CALCIUM (test code = 7.8 mg/dL 8.2-10.1 L CA) HGB [id number] 06:32:00 Test Item Value Reference Range Interpretation Comments HEMOGLOBIN (test code = HGB) 12.2 g/dL 12-16 N HEMATOCRIT (test code = HCT) 37.1 % 37-47 N [id number] 05:24:00 Test Item Value Reference Range Interpretation Comments GLUBED (test code = GLUBED) 149 mg/dL 60-125 H [id number] 20:47:00 Test Item Value Reference Range Interpretation Comments GLUBED (test code = GLUBED) 161 mg/dL 60-125 H [id number] 12:02:00 Test Item Value Reference Range Interpretation [...] be considered for these patients.DONE A T: [facility] [address] [place], [place] [address] GLYCOSYLATED HEMOGLOBIN (HA1C)2019-01-17 13:49:00 Test Item Value [...] be considered for these patients. COMPREHENSIVE METABOLIC [id number] 12:39:00 Test Item Value Reference Range Interpretation [...] RATE (test code = GFR) mL/mi n/1.73 x5Dajwstpjy Range:Healthy Adults >90 mL/min/1.73 m2 For Chronic [...] N TOTAL (test code = ALKP) PROTHROMBIN [id number] 12:33:00 Test Item Value Reference Range Interpretation [...] BLOOD, PT every other day NTHROMBOPLASTIN TIME [id number] 12:33:00 Test Item Value Reference Range Interpretation Comments PTT ACTIVATED (test code = APTT) 28.4 secs 24.9-37.0 N IS PATIENT ON ANTICOAGULANTS ? YLIST ANTICOAGULANT/ANTI PLT MEDICATION : Plavix (Anti-PLT)Has Lab been notified if Patient is on Heparin Drip? NOIf Yes, order CBC, OCCULT BLOOD, PT every other day NCBC W/AUTO [id number] 12:29:00 Test Item Value Reference Range Interpretation [...] % 0-0 N code = NRBC) URINALYSIS [id number] 12:27:00 Test Item Value Reference Range Interpretation [...] BACU) FEW /HPF NONE - XR FLUORO [id number] 10:43:00 Patient Name: AGUEDA COOK Unit No: [id number] EXAMS: CPT CODE: [id number] XR FLUORO NDL 79313 FLUOROSCOPICALLY GUIDED right prosthetic knee joint ASPIRATION [...] Ricardo Leonard Technologist: RT. Mendel(R) Transcribed D/ (1043) t.JOLLYG [facility] NAME: AGUEDA COOK[address] PHYS: Ricardo Patel : 1955 AGE: 62 SEX: M [place], [place] [address] LOC: [facility] PHONE #: [phone] EXAM DATE: 01/08/2018 STATUS: DEP [place] #: [phone] RAD #: D/C DT PAGE 1 Signed Report Patient Name: AGUEDA COOK Unit No: [id number] EXAMS: CPT CODE: [id number] XR FLUORO NDL 32981 <Continued> Orig Print D/T: S: 01/11/2018 (1046) [facility] NAME: AGUEDA COOK [address] PHYS: GOYRO - Aisha,Ricardo Hobbs : 1955 AGE: 62 SEX: M [place], [place] [address] LOC: UNK PHONE #: [phone] EXAM DATE: 01/08/2018 STATUS: DEP CLI FAX #: [phone] RAD #: D/C DT PAGE 2 Signed Report
[2021-12-15] MEDS ORDERED: NA CHLORIDE 0.9% 1,000 ML ONE ×2 (17:33→18:47)
[2021-12-15 17:41] LABS: Absolute Lymphocytes (CBC) 1.4 K/uL (0.7-4.9); Hematocrit 45.8 % (39.6-49.0); Lymphocytes % 21.3 % (15.3-44.8); MPV 7.2 fL (7.6-11.3); RBC Red Blood Cell Count 5.15 M/uL (4.33-5.43)
[2021-12-15 18:02] LABS: ALT/SGPT 26 U/L (12-78); Albumin 3.2 g/dL (3.4-5.0); Alkaline Phosphatase 71 U/L (45-117); BUN Blood Urea Nitrogen 21 mg/dL (7-18); Bicarbonate 25 mmol/L (21-32); Bilirubin Total 0.4 mg/dL (0.2-1.0); Protein, Total 7.1 g/dL (6.4-8.2); Sodium Level 131 mmol/L (136-145)
[2021-12-15 18:03] LABS: AST/SGOT 17 U/L (15-37); Glucose Level 634 mg/dL (74-106); Potassium 4.1 mmol/L (3.5-5.1)
[2021-12-15 18:36] LABS: Urine Blood 1+ (Negative); Urine Glucose 3+ (Negative); Urine Protein Negative (Negative); Urine Specific Gravity <=1.005 (1.005-1.030); Urine pH 5.5 (5.0-7.0)
[2021-12-15] MEDS ORDERED: INSULIN -REGULAR HUMAN 50 UNIT/0.5 ML ML ONE (18:47)
[2021-12-15 18:57] LABS: Urine Bacteria <20 /HPF (NONE SEEN); Urine RBC NONE SEEN /HPF (NONE SEEN)
--- NOTE | 2021-12-15 20:45 | EDPHYS ---
Physician Documentation [facility] Name: Kumar Forman Age: 66 yrs Sex: Male : 1955 Arrival Date: 12/15/2021 Time: 16:16 Bed 5 Private MD: JAMILA Physician Tucker Kumar HPI: 12/15 16:46 This 66 yrs old Male presents to ER via Ambulatory with complaints of Urinary frequency.pm1 16:46 The patient presents with urinary symptoms, urinary frequency. Onset: The pm1 symptoms/episode began/occurred 2 day(s) ago. Modifying factors: The symptoms are alleviated by nothing, the symptoms are aggravated by nothing. Associated signs and symptoms: Pertinent positives: polydipsia and fatigue, Pertinent negatives: abdominal pain, fever, flank pain. Severity of symptoms: in the emergency department the symptoms are unchanged. The patient has not experienced similar symptoms in the past. The patient has not recently seen a physician. Patient reports hyperglycemia, 300-400s. He is typically in the upper 200's. Historical: - Allergies: 16:42 AZO Standard; ph 16:42 PENICILLINS; ph 16:42 Iodine; ph 17:16 Demerol; monroe - Home Meds: 17:16 aspirin 81 mg Oral TbEC 1 tab once daily [Active]; atorvastatin 40 mg Oral tab 1 tab monroe once daily [Active]; clopidogrel 75 mg Oral tab [Active]; fenofibrate 160 mg Oral tab 1 tab once daily [Active]; finasteride 5 mg Oral tab [Active]; gabapentin 60mg Oral [Active]; gabapentin 600 mg Oral tab 1 tab 3 times per day [Active]; glimepiride 4 mg Oral tab [Active]; losartan 50 mg Oral tab [Active]; metformin 1,000 mg Oral tab [Active]; metoprolol tartrate 37.5 mg Oral tab 1 tab once daily [Active]; montelukast 10 mg Oral tab 1 tab once daily [Active]; Myrbetriq 50 mg Oral Tb24 1 tab once daily [Active]; rabeprazole 20 mg Oral TbEC [Active]; Super B Complex-Vitamin C Oral tab [Active]; torsemide 20 mg Oral tab 1 tab once daily [Active]; trazodone 50 mg Oral tab [Active]; Trulicity 1.5 mg/0.5 mL subcutaneous pnij [Active]; zegrid [Active]; - PMHx: 16:42 BPH; Cataracts; Diabetes - NIDDM; GERD; Myocardial infarction; prostate sx x 3; Ulcers; ph - PSHx: 16:42 CABG; Cholecystectomy; knee sx payal; ph - Immunization history:: Adult Immunizations up to date. - Social history:: Smoking status: Patient denies any tobacco usage or history of. ROS: 16:46 Cardiovascular: Negative for chest pain, palpitations, and edema, Respiratory: Negative pm1 for shortness of breath, cough, wheezing, and pleuritic chest pain, Abdomen/GI: Negative for abdominal pain, nausea, vomiting, diarrhea, and constipation. 16:46 MS/Extremity: Negative for injury and deformity, Skin: Negative for injury, rash, and discoloration, Neuro: Negative for headache, weakness, numbness, tingling, and seizure. 16:46 Constitutional: Positive for fatigue, Negative for fever, poor PO intake. 16:46 : Positive for urinary frequency, Negative for burning with urination. 16:46 Endocrine: Positive for polydipsia, polyuria. Exam: 16:46 Constitutional: This is a well developed, well nourished patient who is awake, alert, pm1 and in no acute distress. Head/Face: Normocephalic, atraumatic. 16:46 Back: No spinal tenderness. No costovertebral tenderness. Full range of motion. Skin: Warm, dry with normal turgor. Normal color with no rashes, no lesions, and no evidence of cellulitis. MS/ Extremity: Pulses equal, no cyanosis. Neurovascular intact. Full, normal range of motion. 16:46 Cardiovascular: Exam negative for acute changes, Rate: normal, Rhythm: regular, Pulses: no pulse deficits are appreciated, Edema: is not appreciated. 16:46 Respiratory: Exam negative for acute changes, respiratory distress, shortness of breath. 16:46 Abdomen/GI: Inspection: obese Palpation: abdomen is soft and non-tender, in all quadrants. 16:46 Neuro: Exam negative for acute changes, Orientation: is normal, Mentation: is normal, Motor: is normal, moves all fours. Vital Signs: 16:36 BP 140 / 90; Pulse 98; Resp 20; Temp 97.8; Pulse Ox 98% on R/A; ph 16:44 Weight 129.27 kg; Height 5 ft. 7 in. (170.18 cm); ph 19:36 BP 130 / 68; Pulse 85; Resp 18; Pulse Ox 99% ; lg3 16:44 Body Mass Index 44.64 (129.27 kg, 170.18 cm) ph MDM: 16:42 Patient medically screened. pm1 17:35 Data reviewed: vital signs. Data interpreted: Pulse oximetry: on room air is 98 %. pm1 Interpretation: normal. 20:38 Counseling: I had a detailed discussion with the patient and/or guardian regarding: the pm1 historical points, exam findings, and any diagnostic results supporting the discharge/admit diagnosis, lab results, the need for outpatient follow up, a family practitioner, to return to the emergency department if symptoms worsen or persist or if there are any questions or concerns that arise at home. 20:41 ED course: Patient offered additional IV fluids. He would like to go home and drink his pm1 fluids because he would like to go home now. I requested repeat glucose level prior to discharge. 12/15 16:41 Order name: Urine Microscopic Only; Complete Time: 19:24 pm1 12/15 16:41 Order name: CBC with Diff; Complete Time: 17:52 pm1 12/15 16:41 Order name: CMP; Complete Time: 18:09 pm1 12/15 16:41 Order name: Ketone, Serum; Complete Time: 18:09 pm1 12/15 18:36 Order name: Urine Dipstick-Ancillary; Complete Time: 18:36 EDMS 12/15 19:33 Order name: Glucose, Ancillary Testing; Complete Time: 19:37 EDMS 12/15 16:41 Order name: Urine Dipstick-Ancillary (obtain specimen); Complete Time: 19:02 pm1 12/15 16:41 Order name: IV Saline Lock; Complete Time: 17:36 pm1 12/15 16:41 Order name: Glucose Level; Complete Time: 18:29 pm1 12/15 20:38 Order name: Glucose Level; Complete Time: 21:09 pm1 Administered Medications: 17:35 Drug: NS 0.9% 1000 ml Route: IV; Rate: 1000 ml; Site: left antecubital; monroe 18:46 Drug: NS 0.9% 1000 ml Route: IV; Rate: 1000 ml; Site: left antecubital; monroe 21:16 Follow up: Response: No adverse reaction; IV Intake: 1000ml lg3 18:46 Drug: Insulin Regular Human 10 units {Co-Signature: alaina (Diana John RN).} Route: IVP; monroe Site: left antecubital; 18:47 Follow up: Response: No adverse reaction monroe Disposition Summary: 12/15/21 20:44 Discharge Ordered Location: Home pm1 Problem: new pm1 Symptoms: have improved pm1 Condition: Stable pm1 Diagnosis - Hyperglycemia, unspecified pm1 - Dehydration pm1 Followup: pm1 - With: Emergency Department - When: As needed - Reason: Worsening of condition Followup: pm1 - With: Private Physician - When: 2 - 3 days - Reason: Recheck today's complaints, Continuance of care, Re-evaluation by your physician Discharge Instructions: - Discharge Summary Sheet pm1 - Dehydration, Adult pm1 - Hyperglycemia pm1 - Blood Glucose Monitoring, Adult pm1 - Diabetes Mellitus and Exercise pm1 - Diabetes Mellitus and Nutrition, Adult pm1 - Rehydration, Adult pm1 Forms: - Medication Reconciliation Form pm1 - Thank You Letter pm1 - Antibiotic Education pm1 - Prescription Opioid Use pm1 Signatures: Dispatcher [employer] Breann Praks RN RN Robin Taveras, ROZ DIMETHYLANILINE SULFATOR OPERATOR pm1 Au-Yasmine Montoya RN RN Lisa Bojorquez PA PA sb3 Johanny Huynh RN lg3 Diana foley
--- NOTE | 2021-12-15 20:45 | ER ---
Nurse's Notes [facility] Name: Kumar Forman Age: 66 yrs Sex: Male : 1955 Arrival Date: 12/15/2021 Time: 16:16 Bed 5 Private MD: Diagnosis: Hyperglycemia, unspecified;Dehydration Presentation: 12/15 16:36 Chief complaint: Patient states: Frequent urination, dry mouth, increased thirst and ph fatigue. Hx of IDDM, reports that BGL has been in the high 300s to 400s. Coronavirus screen: Vaccine status: Patient reports receiving the 2nd dose of the covid vaccine. Ebola Screen: No symptoms or risks identified at this time. Initial Sepsis Screen: Does the patient meet any 2 criteria? No. Patient's initial sepsis screen is negative. Does the patient have a suspected source of infection? No. Patient's initial sepsis screen is negative. Risk Assessment: Do you want to hurt yourself or someone else? Patient reports no desire to harm self or others. Onset of symptoms was December 15, 2021. 16:36 Method Of Arrival: Ambulatory ph 16:36 Acuity: STEF 3 ph Triage Assessment: 17:16 General: Appears in no apparent distress. Behavior is calm, cooperative. monroe Historical: - Allergies: 16:42 AZO Standard; ph 16:42 PENICILLINS; ph 16:42 Iodine; ph 17:16 Demerol; monroe - Home Meds: 17:16 aspirin 81 mg Oral TbEC 1 tab once daily [Active]; atorvastatin 40 mg Oral tab 1 tab monroe once daily [Active]; clopidogrel 75 mg Oral tab [Active]; fenofibrate 160 mg Oral tab 1 tab once daily [Active]; finasteride 5 mg Oral tab [Active]; gabapentin 60mg Oral [Active]; gabapentin 600 mg Oral tab 1 tab 3 times per day [Active]; glimepiride 4 mg Oral tab [Active]; losartan 50 mg Oral tab [Active]; metformin 1,000 mg Oral tab [Active]; metoprolol tartrate 37.5 mg Oral tab 1 tab once daily [Active]; montelukast 10 mg Oral tab 1 tab once daily [Active]; Myrbetriq 50 mg Oral Tb24 1 tab once daily [Active]; rabeprazole 20 mg Oral TbEC [Active]; Super B Complex-Vitamin C Oral tab [Active]; torsemide 20 mg Oral tab 1 tab once daily [Active]; trazodone 50 mg Oral tab [Active]; Trulicity 1.5 mg/0.5 mL subcutaneous pnij [Active]; zegrid [Active]; - PMHx: 16:42 BPH; Cataracts; Diabetes - NIDDM; GERD; Myocardial infarction; prostate sx x 3; Ulcers; ph - PSHx: 16:42 CABG; Cholecystectomy; knee sx payal; ph - Immunization history:: Adult Immunizations up to date. - Social history:: Smoking status: Patient denies any tobacco usage or history of. Screenin:44 Abuse screen: Denies threats or abuse. Denies injuries from another. Nutritional ph screening: No deficits noted. Tuberculosis screening: No symptoms or risk factors identified. Fall Risk None identified. Assessment: 17:14 Pain: Complains of pain in penis/bladder pain with urination. : Reports burning with monroe urination, pain urgency, urinary frequency. 19:34 General: Appears in no apparent distress. comfortable, Behavior is calm, cooperative. lg3 Pain: Complains of pain in on urination. Neuro: No deficits noted. Schroeder Agitation-Sedation Scale (RASS): 0 - Alert and Calm Level of Consciousness is awake, alert, obeys commands, Oriented to person, place, time, situation. Cardiovascular: No deficits noted. Denies chest pain, shortness of breath. Respiratory: No deficits noted. Airway is patent Trachea midline Respiratory effort is even, unlabored, Respiratory pattern is regular, symmetrical. GI: No deficits noted. Abdomen is round non-distended. : Reports burning with urination, urgency, urinary frequency. EENT: No deficits noted. No signs and/or symptoms were reported regarding the EENT system. Derm: No deficits noted. No signs and/or symptoms reported regarding the dermatologic system. Skin is intact, is healthy with good turgor, Skin is dry, Skin is pink, warm \T\ dry. Musculoskeletal: No deficits noted. No signs and/or symptoms reported regarding the musculoskeletal system. 21:09 Reassessment: Patient appears in no apparent distress at this time. No changes from lg3 previously documented assessment. Patient and/or family updated on plan of care and expected duration. Pain level reassessed. Patient is alert, oriented x 3, equal unlabored respirations, skin warm/dry/pink. Patient states feeling better. Patient states symptoms have improved. Vital Signs: 16:36 BP 140 / 90; Pulse 98; Resp 20; Temp 97.8; Pulse Ox 98% on R/A; ph 16:44 Weight 129.27 kg; Height 5 ft. 7 in. (170.18 cm); ph 19:36 BP 130 / 68; Pulse 85; Resp 18; Pulse Ox 99% ; lg3 16:44 Body Mass Index 44.64 (129.27 kg, 170.18 cm) ph ED Course: 16:16 Patient arrived in ED. ds1 16:39 Robin Alvarado NP is PHCP. pm1 16:39 Tucker Kumar MD is Attending Physician. pm1 16:42 Triage completed. ph 16:42 Arm band placed on. ph 17:07 Yasmine Suresh, LYRIC is Primary Nurse. monroe 17:14 Patient has correct armband on for positive identification. Bed in low position. monroe 17:14 No provider procedures requiring assistance completed. monroe 19:20 Primary Nurse role handed off by Yasmine Suresh, LYRIC mw2 19:34 Johanny Huynh, LYRIC is Primary Nurse. lg3 21:16 IV discontinued, intact, bleeding controlled, No redness/swelling at site. Pressure lg3 dressing applied. Administered Medications: 17:35 Drug: NS 0.9% 1000 ml Route: IV; Rate: 1000 ml; Site: left antecubital; monroe 18:46 Drug: NS 0.9% 1000 ml Route: IV; Rate: 1000 ml; Site: left antecubital; monroe 21:16 Follow up: Response: No adverse reaction; IV Intake: 1000ml lg3 18:46 Drug: Insulin Regular Human 10 units {Co-Signature: alaina (Diana John RN).} Route: IVP; monroe Site: left antecubital; 18:47 Follow up: Response: No adverse reaction monroe Intake: 21:16 IV: 1000ml; Total: 1000ml. lg3 Outcome: 20:44 Discharge ordered by . pm1 21:09 Patient left the ED. lg3 21:16 Discharged to home ambulatory. lg3 21:16 Condition: stable 21:16 Discharge instructions given to patient, Instructed on discharge instructions. Signatures: Whitney Ramos ds1 Breann Bravo, RN RN ph Robin Alvarado, ACCOUNTS RECEIVABLE CLERK ACCOUNTS RECEIVABLE CLERK pm1 Marilee New mw2 Johanny Huynh, RN RN lg3 Yasmine Suresh RN RN fer John RN ww
[2021-12-15 21:14] VITALS: TEMP 97.8
[2021-12-15 21:16] VITALS: BP 130/68; O2SAT 99
== END 2021-12-15 21:09 | disposition home or self-care (01) ==
LOC: ER 16:13
DX: E11.65 Type 2 diabetes mellitus with hyperglycemia (principal); E86.0 Dehydration; Z79.4 Long term (current) use of insulin; Z95.1 Presence of aortocoronary bypass graft; Z79.82 Long term (current) use of aspirin; Z88.0 Allergy status to penicillin; Z88.5 Allergy status to narcotic agent; Z88.8 Allergy status to other drugs, medicaments and biological substances; Z91.048 Other nonmedicinal substance allergy status
CPT/HCPCS: 85025; 36415; 82010; 82947 ×2; 80053; 96374; 99283; J1815; J7030 ×2; 81003; 81015

== ENCOUNTER 2022-12-22 16:40 | Emergency (ER) | payer BC, OTHER ==
--- OUTSIDE RECORDS SUMMARY | 2022-12-22 16:47 | XMS REPORT | Continuity of Care Document ---
:1955 Author Organization [facility] t Address [address] [place] [address] Care Team Providers Name Role Phone Vinay Dowling Andrew Primary Care Physician RODRI NGUYEN Attending Clinician Unavailable ARIANNA WEINBERG Attending Clinician Unavailable Michael RNCori Attending Clinician Unavailable Only, Ang Db Test Attending Clinician Unavailable Unknown, Attending Attending Clinician Unavailable UNKNOWN, ATTENDING Attending Clinician Unavailable VERONICA WEST Attending Clinician Unavailable Lab, Adc Fam Pob I Attending Clinician Unavailable Yola Cohen Attending Clinician YOLA SÁNCHEZ Attending Clinician Unavailable Mary Dennis PA-C Attending Clinician Mallory Jameson Attending Clinician RODRI NGUYEN Admitting Clinician Unavailable ARIANNA WEINBERG Admitting Clinician Unavailable REI BAIN V. Admitting Clinician Unavailable Payers Payer Name Policy Type Policy Number Effective Date Expiration Date Kris bucio MEDICARE PART A [id number] 2016 2020 00:00:00 00:00:00 BCBS PPO POS EPO [id number] 2014 CHOICE 00:00:00 CDC REVIEW [id number] 2019 2020 00:00:00 00:00:00 ZZCDCREVIEW [id number] 2019 2019 00:00:00 00:00:00 Blue Cross Blue 6 [id number] 2020 Common [facility] 00:00:00 [facility] Problems Condition Condition Condition Status Onset Resolution Last Treating Co mments Source Name Details Category Date Date Treatment Clinician Date Left leg Left leg Disease Active [facility] cellulitis cellulitis 01-14 Mimi kes 00:00: Medical 00 [place] Localized Localized Disease Active [facility] swelling swelling 12-31 [facility] left of left 00:00: Medical lower leg lower leg 00 Cent er Leg mass Leg mass Disease Active [facility] 12-31 [facility] 00:00: Medical 00 [place] Coronary Coronary Disease Active [facility] artery artery 12-28 [facility] disease disease 00:00: Medical 00 [place] S/P ACB x2 S/P ACB x2 Disease Active C [facility] by by 12-27 Lucy Nguyen on [facility] on 00:00: Me dical 12/29/19 12/29/19 [place] Acute pain Acute pain Disease Active U nivers of right of right 2- ity of knee knee 00:00: [place] [facility] Acute pain Acute pain Disease Active U nivers of right of right 2- ity of knee knee 00:00: [place] [facility] Morbid Morbid Disease Active Univers obesity obesity - [place] of with body [place] index 00 Me dical of 50 or of 50 or Branch higher higher Pain Pain Disease Active Univers 6-07 ity of 00:00: [place] 00 Medical Branch Morbid Morbid Disease Recurre [facility] obesity obesity nce [facility] with BMI with BMI Medica l of of Center 45.0-49.9, 45.0-49.9, adult adult Acute Acute Disease Recurre [facility] respirator respirator nce Mimi kes y failure y failure [facility] with with Center hypoxia hypoxia Paroxysmal Paroxysmal Disease Recurre [facility] atrial atrial nce [facility] fibrillati fibrillati Me dical on on Center Acute Acute Disease Active [facility] respirator respirator Mimi kes y y Medical insufficie insufficie Ce nter ncy ncy Acute Acute Disease Active [facility]I blood loss blood loss Mimi ke anemia anemia [facility] Center Hyperglyce Hyperglyce Disease Active [facility] allison [place] Hypotensio Hypotensio Disease Active C [facility] n after n after [facility] procedure procedure [facility] Center S/P CABG S/P CABG Disease Active [facility] t (coronary (coronary [facility] artery artery Medical bypass bypass [place] graft) graft) Lower Benign Problem Common urinary prostatic Spirit tract hypertroph - [facility] symptoms y with St due to [facility] benign urinary Medical prostatic tract Center hypertroph symptoms y (LUTS) Detrusor Detrusor Problem Commo n instabilit instabilit Sp luke y y - [facility] [id number] Cancer of Problem Comm on prostate Spirit w/low - CHI recurrence risk [facility] (T1-2a, Medical [place]<7 Center & PSA<10) [id number] Benign Problem Common prostatic Spirit hyperplasi - CHI a with [facility] urinary Medical tract Center symptoms [id number] Other Problem Common obstructiv Spirit e and - CHI reflux uropathy [facility] [id number] OAB Problem Common (overactiv Spirit e bladder) - [facility] [id number] Urge Problem Common incontinen Spirit ce - [facility] [id number] S/P TURP Problem Comm on Spirit [facility] [id number] Balanopost Problem Com mon hitis [facility] Allergies, Adverse Reactions, Alerts Allergy Allergy Status Severity Reaction(s) Onset Inactive Treating Comm ents Source Name Type Date Date Clinician Iodinate DA Active SV [facility] d - Clear Contrast 00:00: Amanda - Oral 00 [facility] and [facility] Penicill DA Active SV 2019-0 [facility] ins 6-10 Clear 00:00: Amanda 00 Regiona [facility] phenazop DA Active SV 2019-0 HCA yridine 6-10 Clear 00:00: Amanda 00 [facility] Iodinate DA Active SV 2019-0 H[facility] d 1-15 [place] Contrast 00:00: Orthope - Oral 00 dic and IV Hospita Dye l Penicill DA Active SV 2018-0 HCA ins 8-06 Woman's 00:00: Hospita 00 l of [place] iodine DA Active SV 2018-0 HCA 8-06 Woman's 00:00: Hospita 00 l [facility] [place] phenazop DA Active SV 2018-0 [facility]CA yridine 8-06 Woman's 00:00: Hospita 00 [facility] [place] Phenazop Propensi Active Anaphylaxis 2018-0 M ethodi yridine ty to 09-07 st adverse 00:00: Hospita reaction 00 l s to drug Phenazop Propensi Active Anaphylaxis 2018-[address] yridine ty to 09-07 [facility] adverse 00:00: Medical reaction 00 Center s PHENAZOP Allergy Active High Anaphylaxis 2018-[address] YRIDINE 09-07 [facility] 00:00: Medical 00 Center PHENAZOP DRUG Active High Anaphylaxis 2018-0 Uni vers YRIDINE INGREDI 09-07 ity of 00:00: [address] Branch Iodine Propensi Active Rash 2016-0 IV Iodine Metho di ty to 01-20 st adverse 00:00: Hospita reaction 00 l s to drug Penicill Propensi Active Anaphylaxis 2016-0 M ethodi ins ty to 01-20 st adverse 00:00: Hospita reaction 00 l s to drug Iodine Propensi Active Anaphylaxis, 2016-[address] ty to Hives, Rash - reaction( Mimi kes adverse 00:00: s): Medical reaction 00 Hives/[facility] s hIV Iodine Penicill Propensi Active Anaphylaxis, 2015-[address] ins ty to Hives 01-20 [facility] adverse 00:00: Medical reaction 00 Center s IODINE Allergy Active High Anaphylaxis 2015-[address] 01-20 [facility] 00:00: Medical 00 Center PENICILL Allergy Active High Anaphylaxis 2016-[address] INS 01-20 [facility] 00:00: Medical 00 Center Penicill Propensi Active Anaphylaxis 2016-0 U nivers ins ty to 6-13 ity of adverse 00:00: [place] reaction 00 Medical s to Branch drug IODINE DRUG Active High Anaphylaxis 2015- Unive rs INGREDI 6-13 ity of 00:00: [place] 00 Medical Branch PENICILL Drug Active High Anaphylaxis Uni vers INS Class 6-13 ity of 00:00: [place] 00 Medical Branch Penicill Penicill Active Unknown Commo n in in Spirit - [facility] Family History Family Member Diagnosis Comments Start Date Stop Date Source Natural father Hodgkin's lymphoma CH [facility] Maternal grandfather Diabetes [facility] Maternal uncle Diabetes [facility] Natural mother Rheum arthritis [facility] Natural mother Thyroid disease [facility] Paternal grandfather Diabetes [facility] Social History Social Habit Start Date Stop Date Quantity Comments Source Gender identity [facility] Sexual orientation [facility] History of Tobacco Common Spirit - Use [facility] Exposure to Not sure University of SARS-CoV-2 (event) [facility] Alcohol intake 2021-02-14 2021-02-14 Current drinker [facility] 00:[facility] 00:00:00 of alcohol Medical Center (finding) Alcohol Comment 2020-12-28 2020-12-28 1 beer/month [facility] 00:00[facility] 2019-12-29 2019-12-[address] [facility] Alcohol Frequency 00:00:00 00:00:00 [facility] 2019-12-29 2019-12-[address] [facility] Alcohol Std Drinks 00:00:00 00:00:00 Medica l Center [facility] 2019-12-29 2019-12-[address] [facility] Alcohol Binge 00:00:00 00:00:[address] History [facility] 2019-12-29 2019-12-[address] [facility] Financial 00:00:00 00:00:00 Medical [facility] Food 2019-12-29 2019-12-[address] [facility] Worry 00:00:00 00:00:00 Medical [facility] Food 2019-12-29 2019-12-[address] [facility] Scarcity 00:00:00 00:00:00 Medical [facility] 2019-12-29 2019-12-[address] [facility] Transport Med 00:00:00 00:00:[address] History SDOH 2019-12-29 2019-12-29 2 [facility] Transport Non-Med 00:00:00 00:00:00 [facility] Education 2019-12-28 2019-12-28 [facility] [facility] Tobacco use and 2017-09-10 2017-09-10 Current user Univers ity of exposure 00:00:00 00:00:00 [facility] Sex Assigned At [birth year] [facility] 00:00[facility] Smoking Status Start Date Stop Date Source Tobacco smoking consumption [facility] unknown Never Smoker Common [facility] Medications Ordered Filled Start Stop Current Ordering Indication Dosage Frequency Signature Comments Components Source Medication Medication Date Date Medication? Clinician (SIG) Name Name Bactrim DS Bactrim DS 2021- No 1{table BID Bactrim DS 800-160 MG 800-160 MG 12-15 05-15 t} 800-160 MG 00:00: 00:00 00 :00 VESIcare 10 VESIcare 10 202- No 1{table QD VESIcare MG MG 08-28 11-11 t} 10 MG 00:00: 00:00 00 :00 VESIcare 10 VESIcare 10 2021- No 1{table QD VESIcare MG MG 08-28 11-05 t} 10 MG 00:00: 00:00 00 :00 VESIcare 10 VESIcare 10 2021- No 1{table QD VESIcare MG MG 08-28 11-05 t} 10 MG 00:00: 00:00 00 :00 VESIcare 10 VESIcare 10 2021- No 1{table QD VESIcare MG MG 08-28 05-19 t} 10 MG 00:00: 00:00 00 :00 Clotrimazol Clotrimazol 2020-08- No 1{appli BID Clotrimazo e-Betametha e-Betametha 09-02 02-16 cation} le-Betamet sone 1-0.05 sone 1-0.05 00:00: 00:00 hasone % % 00 :00 -0.05 % Clotrimazol Clotrimazol 2020-08- No 1{appli BID Clotrimazo e-Betametha e-Betametha 09-0216 cation} le-Betamet sone 1-0.05 sone 1-0.05 00:00: 00:00 hasone % % 00 :00 1-0.05 % Clotrimazol Clotrimazol 2020-08- No 1{appli BID Clotrimazo e-Betametha e-Betametha 09-02-16 cation} le-Betamet sone 1-0.05 sone 1-0.05 00:00: 00:00 hasone % % 00 :00 1-0.05 % Clotrimazol Clotrimazol 2020-08- No 1{appli BID Clotrimazo e-Betametha e-Betametha 09-0216 cation} le-Betamet sone 1-0.05 sone 1-0.05 00:00: 00:00 hasone % % 00 :00 1-0.05 % Clotrimazol Clotrimazol 2020-08- No 1{appli BID Clotrimazo e-Betametha e-Betametha 09-0216 cation} le-Betamet sone 1-0.05 sone 1-0.05 00:00: 00:00 hasone % % 00 :00 1-0.05 % VESIcare 5 VESIcare 5 2020- No 1{table QD VESIcare 5 MG MG 05-01 12-20 t} MG 00:00: 00:00 00 :00 VESIcare 5 VESIcare 5 2020- No 1{table QD VESIcare 5 MG MG 05-01 12-20 t} MG 00:00: 00:00 00 :00 VESIcare 5 VESIcare 5 2020- No 1{table QD VESIcare 5 MG MG 05-01 12-20 t} MG 00:00: 00:00 00 :00 mirabegron 2020-0 Yes 50mg QD Take [address] (Myrbetriq) 7-08 by mouth Luke s 50 mg Tb24 09:27: daily. Medic al ER tablet 26 [place] multivitami Yes 1{tbl} QD Take [address] n per 7-08 tablet by [facility] tablet 09:27: mouth Medical 26 daily. [place] ferrous Yes 1{tbl} QD Take [address] fumarate/vi 7-08 tablet by Ava es t Bcomp,C 09:27: mouth Medical (SUPER B 26 daily. [place] COMPLEX ORAL) omeprazole/ Yes 1{tbl} QD Take [address] sodium 7-08 tablet by [facility]ukes bicarbonate 09:27: mouth Medic al (ZEGERID 26 nightly. [place] ORAL) atorvastati Yes 40mg QD Take [address] n (LIPITOR) 6-01 by mouth Luke s 40 MG 00:00: daily. Medical tablet 00 [place] metoprolol Yes .5{tbl} QD Take 0.[address] tartrate 75 6- tablets by Mimi kes mg Tab 00:00: mouth Medical 00 daily. [place] chlorhexidi Yes [facility] ne 5-19 [facility] (HIBICLENS) 11:46: Medica l external 24 [place] liquid 4% Myrbetriq Myrbetriq 2- No 1{table QD Myrbetriq 50 MG 50 MG 12-18 t} 50 MG 00:00: 00:00 00 :00 Myrbetriq Myrbetriq 2020-0 2022- No 1{table QD Myrbetriq 50 MG 50 MG 12-18 t} 50 MG 00:00: 00:00 00 :00 Myrbetriq Myrbetriq 2020-0 2022- No 1{table QD Myrbetriq 50 MG 50 MG 12-18 t} 50 MG 00:00: 00:00 00 :00 Myrbetriq Myrbetriq 2020-0 2022- No 1{table QD Myrbetriq 50 MG 50 MG 12-18 t} 50 MG 00:00: 00:00 00 :00 Myrbetriq Myrbetriq 2020-0 2022- No 1{table QD Myrbetriq 50 MG 50 MG 12-18 t} 50 MG 00:00: 00:00 00 :00 Myrbetriq Myrbetriq 2021- No 1{table QD Myrbetriq 50 MG 50 MG 12-18 t} 50 MG 00:00: 00:00 00 :00 Myrbetriq Myrbetriq 2020-0 2022- No 1{table QD Myrbetriq 50 MG 50 MG 12-18 t} 50 MG 00:00: 00:00 00 :00 Trulicity Yes 1.5mg Q7D Inject 1.[address] 1.5 mg/0.5 4-24 mg [facility]ukes mL PnIj 00:00: subcutaneo Medi karla 00 usly once Center a week. fenofibrate Yes 160mg QD Take [address] (TRIGLIDE,L 3-15 mg by [facility]ukes OFIBRA) 160 00:00: mouth Medic al MG tablet 00 daily. [place] pen needle, Yes To use [address] diabetic 31 5- day. [facility] gauge x 00:00: Medical 12/23" Ndle 00 [place] montelukast Yes 1{tbl} QD Take [address] (SINGULAIR) 5-19 tablet by Ava es 10 mg 00:00: mouth Medical tablet 00 daily. [place] glimepiride Yes 4mg Q.5D Take [address] (AMARYL) 4 4-03 by mouth 2 Ava es MG tablet 00:00: (two) Medical 00 times Center daily. finasteride Yes 5mg QD Take [address] (PROSCAR) 5 3-30 by mouth Luke s mg tablet 00:00: daily. Medica l 00 [place] gabapentin Yes 600mg Q.5D Take [address] (NEURONTIN) 3-10 mg by [facility] 600 MG 00:00: mouth 2 Medical tablet 00 (two) Center times daily . glimepiride 2017-08 Yes Method i (AMARYL) 4 2-09 st MG tablet 00:00: Hospita 00 l metFORMIN 2017-08 Yes Methodi (GLUCOPHAGE 2-06 st ) 1,000 mg 00:00: Hospita tablet 00 l metoprolol 2017-08 Yes 100mg QD Take 100 Me thodi succinate 1-[address] XL 00:00: mouth Hospita (TOPROL-XL) 00 daily. l 100 mg 24 hr tablet gabapentin 2017-08 Yes 600mg Q.5D Take 600 Me thodi (NEURONTIN) 1-[address] 600 mg 00:00: mouth 2 Hospita tablet 00 (two) l times a day. losartan-hy 2017-08 Yes 1{tbl} QD Take 1 Me thodi drochloroth 1-[address] iazide 00:00: mouth Hospita (HYZAAR) 00 daily. l 50-12.5 mg per tablet zolpidem CR 2017-08 Yes TAKE 1 Meth pineda (AMBIEN CR) 1-[address] 12.5 MG CR 00:00: MOUTH AT Hos donell tablet 00 BEDTIME l NEEDED FOR INSOMNIA clopidogrel 2017-08 Yes 75mg QD Take 75 mg Methodi (PLAVIX) 75 1-[address] mg tablet 00:00: daily. Hospit a 00 l finasteride 2017-08 Yes 5mg QD Take 5 mg M ethodi (PROSCAR) 5 1-[address] mg tablet 00:00: daily. Hospit a 00 l No known No Univers medications - ity of 06:22: [address] No known No Univers medications - ity of 06:22: [address] Aspirin 81 Aspirin 81 No 1{table QD Aspirin 81 81 MG 81 MG t} 81 MG Super B Super B No Super B Complex Complex Complex Maxi - Maxi - Maxi - Gabapentin Gabapentin No 1{table QD Gabapentin 600 MG 600 MG t} 600 MG Fenofibrate Fenofibrate No 1{table QD Fenofibrat 145 MG 145 MG t} e 145 MG Metoprolol Metoprolol No 1{table BID Metoprolol Tartrate Tartrate t_with_ Tartrate 37.5 MG 37.5 MG food} 37.5 MG Finasteride Finasteride No 1{table QD Finasterid 5 MG 5 MG t} e 5 MG Montelukast Montelukast No 1{table QD Montelukas Sodium 10 Sodium 10 t} t Sodium MG MG 10 MG Metoprolol Metoprolol No 1{table BID Metoprolol Tartrate Tartrate t_with_ Tartrate 37.5 MG 37.5 MG food} 37.5 MG Aspirin 81 Aspirin 81 No 1{table QD Aspirin 81 81 MG 81 MG t} 81 MG Montelukast Montelukast No 1{table QD Montelukas Sodium 10 Sodium 10 t} t Sodium MG MG 10 MG Finasteride Finasteride No 1{table QD Finasterid 5 MG 5 MG t} e 5 MG Multivitami Multivitami No 1{table QD Multivitam n - n - t} in - NovoLOG 100 NovoLOG 100 No NovoLOG UNIT/ML UNIT/ML 100 UNIT/ML Torsemide Torsemide No Torsemide 20 MG 20 MG 20 MG Fenofibrate Fenofibrate No 1{table QD Fenofibrat 145 MG 145 MG t} e 145 MG Super B Super B No Super B Complex Complex Complex Maxi - Maxi - Maxi - Gabapentin Gabapentin No 1{table QD Gabapentin 600 MG 600 MG t} 600 MG Fenofibrate Fenofibrate No 1{table QD Fenofibrat 145 MG 145 MG t} e 145 MG Finasteride Finasteride No 1{table QD Finasterid 5 MG 5 MG t} e 5 MG Multivitami Multivitami No 1{table QD Multivitam n - n - t} in - Montelukast Montelukast No 1{table QD Montelukas Sodium 10 Sodium 10 t} t Sodium MG MG 10 MG NovoLOG 100 NovoLOG 100 No NovoLOG UNIT/ML UNIT/ML 100 UNIT/ML Metoprolol Metoprolol No 1{table BID Metoprolol Tartrate Tartrate t_with_ Tartrate 37.5 MG 37.5 MG food} 37.5 MG Aspirin 81 Aspirin 81 No 1{table QD Aspirin 81 81 MG 81 MG t} 81 MG Gabapentin Gabapentin No 1{table QD Gabapentin 600 MG 600 MG t} 600 MG Super B Super B No Super B Complex Complex Complex Maxi - Maxi - Maxi - Torsemide Torsemide No Torsemide 20 MG 20 MG 20 MG Fenofibrate Fenofibrate No 1{table QD Fenofibrat 145 MG 145 MG t} e 145 MG Finasteride Finasteride No 1{table QD Finasterid 5 MG 5 MG t} e 5 MG Multivitami Multivitami No 1{table QD Multivitam n - n - t} in - Montelukast Montelukast No 1{table QD Montelukas Sodium 10 Sodium 10 t} t Sodium MG MG 10 MG NovoLOG 100 NovoLOG 100 No NovoLOG UNIT/ML UNIT/ML 100 UNIT/ML Metoprolol Metoprolol No 1{table BID Metoprolol Tartrate Tartrate t_with_ Tartrate 37.5 MG 37.5 MG food} 37.5 MG Aspirin 81 Aspirin 81 No 1{table QD Aspirin 81 81 MG 81 MG t} 81 MG Gabapentin Gabapentin No 1{table QD Gabapentin 600 MG 600 MG t} 600 MG Super B Super B No Super B Complex Complex Complex Maxi - Maxi - Maxi - Torsemide Torsemide No Torsemide 20 MG 20 MG 20 MG Gabapentin Gabapentin No 1{table QD Gabapentin 600 MG 600 MG t} 600 MG Torsemide Torsemide No Torsemide 20 MG 20 MG 20 MG Metoprolol Metoprolol No 1{table BID Metoprolol Tartrate Tartrate t_with_ Tartrate 37.5 MG 37.5 MG food} 37.5 MG Super B Super B No Super B Complex Complex Complex Maxi - Maxi - Maxi - Montelukast Montelukast No 1{table QD Montelukas Sodium 10 Sodium 10 t} t Sodium MG MG 10 MG Multivitami Multivitami No 1{table QD Multivitam n - n - t} in - Fenofibrate Fenofibrate No 1{table QD Fenofibrat 145 MG 145 MG t} e 145 MG NovoLOG 100 NovoLOG 100 No NovoLOG UNIT/ML UNIT/ML 100 UNIT/ML Aspirin 81 Aspirin 81 No 1{table QD Aspirin 81 81 MG 81 MG t} 81 MG Multivitami Multivitami No 1{table QD Multivitam n - n - t} in - NovoLOG 100 NovoLOG 100 No NovoLOG UNIT/ML UNIT/ML 100 UNIT/ML Torsemide Torsemide No Torsemide 20 MG 20 MG 20 MG Gabapentin Gabapentin No 1{table QD Gabapentin 600 MG 600 MG t} 600 MG Fenofibrate Fenofibrate No 1{table QD Fenofibrat 145 MG 145 MG t} e 145 MG Aspirin 81 Aspirin 81 No 1{table QD Aspirin 81 81 MG 81 MG t} 81 MG Super B Super B No Super B Complex Complex Complex Maxi - Maxi - Maxi - Montelukast Montelukast No 1{table QD Montelukas Sodium 10 Sodium 10 t} t Sodium MG MG 10 MG Finasteride Finasteride No 1{table QD Finasterid 5 MG 5 MG t} e 5 MG Metoprolol Metoprolol No 1{table BID Metoprolol Tartrate Tartrate t_with_ Tartrate 37.5 MG 37.5 MG food} 37.5 MG Super B Super B No Super B Complex Complex Complex Maxi - Maxi - Maxi - Multivitami Multivitami No 1{table QD Multivitam n - n - t} in - NovoLOG 100 NovoLOG 100 No NovoLOG UNIT/ML UNIT/ML 100 UNIT/ML Aspirin 81 Aspirin 81 No 1{table QD Aspirin 81 81 MG 81 MG t} 81 MG Metoprolol Metoprolol No 1{table BID Metoprolol Tartrate Tartrate t_with_ Tartrate 37.5 MG 37.5 MG food} 37.5 MG Fenofibrate Fenofibrate No 1{table QD Fenofibrat 145 MG 145 MG t} e 145 MG Gabapentin Gabapentin No 1{table QD Gabapentin 600 MG 600 MG t} 600 MG Torsemide Torsemide No Torsemide 20 MG 20 MG 20 MG Finasteride Finasteride No 1{table QD Finasterid 5 MG 5 MG t} e 5 MG Montelukast Montelukast No 1{table QD Montelukas Sodium 10 Sodium 10 t} t Sodium MG MG 10 MG Metoprolol Metoprolol No 1{table BID Metoprolol Tartrate Tartrate t_with_ Tartrate 37.5 MG 37.5 MG food} 37.5 MG Super B Super B No Super B Complex Complex Complex Maxi - Maxi - Maxi - NovoLOG 100 NovoLOG 100 No NovoLOG UNIT/ML UNIT/ML 100 UNIT/ML Fenofibrate Fenofibrate No 1{table QD Fenofibrat 145 MG 145 MG t} e 145 MG Montelukast Montelukast No 1{table QD Montelukas Sodium 10 Sodium 10 t} t Sodium MG MG 10 MG Aspirin 81 Aspirin 81 No 1{table QD Aspirin 81 81 MG 81 MG t} 81 MG Torsemide Torsemide No Torsemide 20 MG 20 MG 20 MG Multivitami Multivitami No 1{table QD Multivitam n - n - t} in - Finasteride Finasteride No 1{table QD Finasterid 5 MG 5 MG t} e 5 MG Gabapentin Gabapentin No 1{table QD Gabapentin 600 MG 600 MG t} 600 MG Torsemide Torsemide No Torsemide 20 MG 20 MG 20 MG NovoLOG 100 NovoLOG 100 No NovoLOG UNIT/ML UNIT/ML 100 UNIT/ML Multivitami Multivitami No 1{table QD Multivitam n - n - t} in - No known No [facility] medications ity [facility] No known No [facility] No known No Univers medications ity [facility] Finasteride Finasteride 2022- No 1{table QD Finasterid 5 MG 5 MG 06-20} e 5 MG 00:00 :00 Immunizations Ordered Filled Immunization Date Status Comments Sourc e Immunization Name Name Covid-19 Vaccine 2020-10-[address] [facility] MRNA (PF) 18yr+ 00:00:00 Medical C enter (Moderna)([id number]) Covid-19 Vaccine 2020-09-[address] [facility] MRNA (PF) 18yr+ 00:00:00 Medical C enter (Moderna)([id number]) Pneumococcal 2017-09-10 Completed University o f Polysaccharide, 00:00:00 [place] Med ical PPSV23 (PNEUMOVAX) [place] Influenza Virus 2017-09-10 Completed Universit y of Vaccine Quad IM 3+ 00:00:00 [facility] Pneumococcal 2017-09-10 Completed University o f Polysaccharide, 00:00:00 [facility] ical PPSV23 (PNEUMOVAX) Branch Influenza Virus 2017-09-10 Completed Universit y of Vaccine Quad IM 3+ 00:00:00 [facility] Pneumococcal 2017-09-10 Completed University o f Polysaccharide, 00:00:00 [place] Med ical PPSV23 (PNEUMOVAX) Branch Influenza Virus 2017-09-10 Completed Universit y of Vaccine Quad IM 3+ 00:00:00 [facility] Pneumococcal 2017-09-10 Completed University o f Polysaccharide, 00:00:00 [place] Med ical PPSV23 (PNEUMOVAX) Branch Influenza Virus 2017-09-10 Completed Universit y of Vaccine Quad IM 3+ 00:00:00 [facility] Pneumococcal 2017-09-10 Completed University o f Polysaccharide, 00:00:00 [place] Med ical PPSV23 (PNEUMOVAX) Branch Influenza Virus 2017-09-10 Completed Universit y of Vaccine Quad IM 3+ 00:00:00 [facility] Pneumococcal 2017-09-10 Completed University o f Polysaccharide, 00:00:00 [place] Med ical PPSV23 (PNEUMOVAX) Branch Influenza Virus 2017-09-10 Completed Universit y of Vaccine Quad IM 3+ 00:00:00 [facility] Branch Vital Signs Vital Name Observation Time Observation Value Comments Source HEIGHT 2020-12-31 06:00:00 170.2 cm WEIGHT 2020-12-31 06:00:00 135.716 kg HEIGHT 2020-12-28 14:34:00 170.2 cm WEIGHT 2020-12-28 14:34:00 134.718 kg HEIGHT 2019-12-28 00:00:00 170.2 cm WEIGHT 2019-12-28 00:00:00 138.211 kg height 2022-06-25 09:00:00 67 [in_i] [facility] weight 2022-06-25 09:00:00 285 [lb_av] [facility] temperature 2022-06-25 09:00:00 97.6 [degF] [facility] bmi 2022-06-25 09:00:00 44.63 kg/m2 [facility] oximetry 2022-06-25 09:00:00 98 % [facility] respiratory rate 2022-06-25 09:00:00 18 /min Comm on [facility] blood pressure 2022-06-25 09:00:00 162 mm[Hg] [facility] - systolic [facility] blood pressure 2022-06-25 09:00:00 83 mm[Hg] [facility] - diastolic [facility] height 2021-08-28 13:15:00 67 [in_i] [facility] weight 2021-08-28 13:15:00 280 [lb_av] [facility] temperature 2021-08-28 13:15:00 97.5 [degF] [facility] bmi 2021-08-28 13:15:00 43.85 kg/m2 [facility] oximetry 2021-08-28 13:15:00 94 % Common S pirit - [facility] respiratory rate 2021-08-28 13:15:00 18 /min Comm on [facility] blood pressure 2021-08-28 13:15:00 175 mm[Hg] [facility] - systolic [facility] blood pressure 2021-08-28 13:15:00 79 mm[Hg] [facility] - diastolic [facility] height 2021-08-01 10:30:00 67 [in_i] Common S pirit - [facility] weight 2021-08-01 10:30:00 288 [lb_av] Common S p[facility] - [facility] temperature 2021-08-01 10:30:00 98.3 [degF] Common S pirit - [facility] bmi 2021-08-01 10:30:00 45.1 kg/m2 Common S pirit - [facility] oximetry 2021-08-01 10:30:00 93 % Common S pirit [facility] respiratory rate 2021-08-01 10:30:00 18 /min Comm on [facility] blood pressure 2021-08-01 10:30:00 162 mm[Hg] Common [facility] - systolic [facility] blood pressure 2021-08-01 10:30:00 90 mm[Hg] [facility] - diastolic [facility] height 2021-07-03 10:15:00 67 [in_i] [facility] - [facility] weight 2021-07-03 10:15:00 280 [lb_av] [facility] - [facility] temperature 2021-07-03 10:15:00 97.8 [degF] Common [facility] - [facility] bmi 2021-07-03 10:15:00 43.85 kg/m2 [facility] - [facility] oximetry 2021-07-03 10:15:00 97 % Common [facility] - [facility] blood pressure 2021-07-03 10:15:00 150 mm[Hg] [facility] - systolic [facility] blood pressure 2021-07-03 10:15:00 79 mm[Hg] [facility] - diastolic [facility] height 2021-06-26 15:45:00 67 [in_i] [facility] weight 2021-06-26 15:45:00 285 [lb_av] [facility] temperature 2021-06-26 15:45:00 97.7 [degF] [facility] bmi 2021-06-26 15:45:00 44.63 kg/m2 [facility] oximetry 2021-06-26 15:45:00 97 % [facility] blood pressure 2021-06-26 15:45:00 156 mm[Hg] [facility] - systolic [facility] blood pressure 2021-06-26 15:45:00 84 mm[Hg] [facility] - diastolic [facility] HEIGHT 2021-02-14 09:20:00 175.3 cm WEIGHT 2021-02-14 [...] kg Heart rate 2020-06-22 21:00:00 85 /min [facility] Respiratory rate 2020-06-22 21:00:00 20 /min [facility] in 2020-06-22 21:00:00 98 /min [facility] Arterial blood by [place] [facility] oximetry Branch Heart rate 2020-06-22 21:00:00 85 /min [facility] Respiratory rate 2020-06-22 21:00:00 20 /min [facility] Oxygen saturation in 2020-06-22 21:00:00 98 /min [facility] Arterial blood by [facility] Pulse oximetry Branch HEIGHT 2020-01-18 00:00:00 170.2 cm WEIGHT 2020-01-18 00:00:00 139.844 kg HEIGHT 2019-12-28 00:00:00 170.2 cm WEIGHT 2019-12-28 00:00:00 138.211 kg Procedures This patient has no known procedures. Plan of Care Planned Activity Planned Date Details Comments Source Future Scheduled 2023-04-[address] [facility] Test 00:00:00 (Season Ended) [code = [facility] INFLUENZA VACCINE (Season Ended)] Future Scheduled 2022-11-13 COVID-19 VACCINE (#1) [facility] Test 16:11:46 [code = COVID-19 VACCINE (#1)] Future Scheduled 2022-11-[address] [facility] Test 16:11:46 [code = COLONOSCOPY SCREENING] Future Scheduled 2022-11-13 SHINGLES VACCINES (1 Met [facility] Test 16:11:46 of 2) [code = SHINGLES VACCINES (1 of 2)] Future Scheduled 2022-11-13 65+ [facility] 16:11:46 VACCINE (2 - PCV) [code = 65+ PNEUMOCOCCAL VACCINE (2 - PCV)] Future Scheduled 2022-11-13 INFLUENZA VACCINE Method [facility] Test 16:11:46 [code = INFLUENZA VACCINE] Future Scheduled 2022-08-[address] [facility] Test 00:00:00 (12+) [code = Medical Center DEPRESSION SCREENING (12+)] Future Scheduled 2022-08-10 FALLS RISK SCREENING [facility] Test 00:00:00 [code = FALLS RISK Medical C enter SCREENING] Future Scheduled 2022-02-[address] [facility] Test 00:00:00 Counseling and Medical Cente r Screening (12+) [code = Tobacco Cessation Counseling and Screening (12+)] Future Scheduled 2021-04-[address] [facility] Test 00:00:00 measurement [facility] Center (procedure) [code = 23689413] Future Scheduled 2020-12-11 COVID-19 VACCINE (3 - [facility]00 Booster for [facility] series) [code = COVID-19 VACCINE (3 - Booster for [employer] series)] Future Scheduled 2017-01-[address] [facility] Test 00:00:00 WELLNESS (YEAR 2 or Medical Center FIRST YEAR if no IPPE) [code = MEDICARE ANNUAL WELLNESS (YEAR 2 or FIRST YEAR if no IPPE)] Future Scheduled 2005-11-30 SHINGLES VACCINES ([address] [facility] Test 00:00:00 of 2) [code = SHINGLES Medic al Center VACCINES (1 of 2)] Future Scheduled 1974-11-30 DTAP/TDAP/TD VACCINES [facility] 00:00:00 (1 - Tdap) [code = Medical C enter DTAP/TDAP/TD VACCINES (1 - Tdap)] Future Scheduled 1973-11-30 HEPATITIS C SCREENING [facility] 00:00:00 [code = HEPATITIS C Medical Center SCREENING] Future Scheduled 1965-11-[address] DIABETIC EYE EXAM [facility] Test 00:00:00 [code = DIABETIC EYE Medical Center EXAM] Future Scheduled 1965-11-30 Urine screening for [facility] Test 00:00:00 protein (procedure) Medical Center [code = 155442224] Future Scheduled [address] [facility] Test 00:00:00 (combo) [code = CT Medical C enter Colonography (combo)] Future Scheduled [address] [facility] Test 00:00:00 malignant neoplasm of Medica l Center colon (procedure) [code = 494406745] Future Scheduled [address] [facility] 00:00:00 malignant neoplasm of Medica l Center colon (procedure) [code = 611159470] Future Scheduled [address] [facility] 00:00:00 malignant neoplasm of Medica l Center colon (procedure) [code = 651162588] Future Scheduled [address] [facility] Test 00:00:00 malignant neoplasm of Medica l Center colon (procedure) [code = 533691935] Future Scheduled 1955 Sigmoidoscopy [code [facility]00 Sigmoidoscopy] Medical Cente r Encounters Start End Encounter Admission Attending Care Care Encounter Source Date/Time Date/Time Type Type Clinicians Facility Department ID 2022-06-25 Outpatient STLMLC STLMLC [id number] Common 09:29:03 [facility] 2021-09-04 Outpatient STLMLC STLMLC [id number] Common 14:38:47 [facility] 2021-09-04 Outpatient STLC STLMLC [id number] Common 14:14:46 [facility] 2021-05-18 Outpatient [facility] Surgery [id number] SLEH 21:29:55 [facility] 2021-05-14 Inpatient [facility] Surgery [id number] SLEH 14:24:03 [facility] 2019-12-28 Inpatient UR [facility] Cardiology [id number] SLEH 18:11:06 [facility] 2022-06-25 2022-06-25 OFFICE STLC STLC [id number] Co mmon 00:00:00 00:00:00 VISIT EST Spir it PT LEVEL 3 [facility] 2021-12-15 2021-12-15 (TEL) STLMLC STLMLC [id number] Co mmon 00:00:00 00:00:00 [facility] 2021-09-17 2021-09-17 (TEL) STLMLC STLMLC [id number] Co mmon 00:00:00 00:00:00 [facility] 2021-08-28 2021-08-28 OFFICE STLMLC STLMLC [id number] Co mmon 00:00:00 00:00:00 VISIT EST Spir it PT LEVEL 3 - [facility] 2021-08-01 2021-08-01 Postop STLMLC STLMLC [id number] Co mmon 00:00:00 00:00:00 visit Spirit - [facility] 2021-07-17 2021-07-17 OL DIG E/M STLMLC STLMLC [id number] Common 00:00:00 00:00:00 SVC 11-20 Spir it MIN - [facility] 2021-07-03 2021-07-03 OFFICE STLMLC STLMLC [id number] Co mmon 00:00:00 00:00:00 VISIT Spirit ESTAB PT - CHI LEVEL 2 [facility] 2021-06-26 2021-06-26 OFFICE STLMLC STLMLC [id number] Co mmon 00:00:00 00:00:00 VISIT Spirit ESTAB PT - CHI LEVEL 2 [facility] 2021-05-12 2021-05-12 Letter MARY Rodriguez [id number] Univers 00:00:00 00:00:00 (Out) Cori BYNUM [id number] it y of [facility] [id number] Jarad as [phone] [address] 2021-05-11 2021-05-11 Laboratory Only, Ang Db Test [facility] 1.2.8 40.114 [id number] Univers 14:58:25 15:13:25 Only Unknown, Attending [facility] [id number] ity [facility] [id number] Jarad as Lupillo?Blea [phone] Ny javon [address] Medical Office Building 2021-05-11 2021-05-11 Outpatient R UNKNOWN, [facility] [id number] Univers 15:00:00 15:00:00 ATTENDING ity of [facility] 2021-02-14 2021-02-14 Outpatient KJ DSOUZAMANJUAN [facility] [id number] SLE 00:00:00 00:00:00 [facility] 2021-01-29 2021-01-29 Outpatient KJ NGUYENJUAN [facility] [id number] SLE 00:00:00 00:00:00 [facility] 2021-01-242021-01-24 Outpatient KJ NGUYEN [facility] [id number] SLEH 00:00:00 00:00:00 [facility] 2021-01-24 2021-01-24 Outpatient WILBUR BARILLASH [facility] [id number] [facility]H 00:00:00 00:00:00 [facility] 2021-01-14 2021-01-14 Emergency ER SLE Emergency [id number] SLEH 14:35:00 14:35:00 2021-01-14 2021-01-14 Outpatient WILBUR BARILLAS [facility] [id number] SLEH 00:00:00 00:00:00 [facility] 2021-01-11 2021-01-11 Outpatient KJ SLEH SLEH [id number] SLEH 00:00:00 00:00:00 2021-01-10 2021-01-10 Outpatient KJ NGUYEN SLEH [facility] [id number] SLEH 00:00:00 00:00:00 [facility] 2021-01-10 2021-01-10 Outpatient KJ SLEH SLEH [id number] SLEH 00:00:00 00:00:00 2020-12-28 2020-12-28 Outpatient KJ SLEH SLEH [id number] [facility]H 00:00:00 00:00:00 2020-12-26 2020-12-26 Outpatient KJ NGUYEN SLE [facility] [id number] SLEH 00:00:00 00:00:00 [facility] 2020-07-09 2020-07-09 Laboratory Lab, [facility] [id number] 14:56:09 15:16:09 Only Fam Pob I Health [id number] [place] [id number] Professio [phone] nal [facility] Office Building One 2020-07-09 2020-07-09 Laboratory Lab, [facility] Fam Pob I [facility] 1.2. 840.114 [id number] [facility] 14:56:09 15:16:09 Only Yola Sánchez Health [id number] ity of [place] [id number] Jarad as Professio [phone] Ny dical nal [address] [place] [address] Office Building One 2020-07-09 2020-07-09 Outpatient R BERNARDA [facility] [id number] Univers 15:00:00 15:00:00 YOLA ity of [facility] 2020-06-22 2020-06-22 Outpatient R [facility] [id number] Univers 19:20:00 19:20:00 ity [facility] 2020-06-22 2020-06-22 Laboratory Lab, [facility] 1.2.840.114 [id number] 18:01:48 18:21:48 Only Fam Pob I Health [id number] [place] [id number] Professio [phone] nal [facility] Office Building [facility] 2020-06-22 2020-06-22 Laboratory Lab, [facility] Fam Pob I [facility] 1.2. 840.114 [id number] Univers 18:01:48 18:21:48 Only [facility] [id number] ity of [place] [id number] Jarad as Professio [phone] Ny dical nal [address] [place] [address] Office Building [facility] 2020-05-31 2020-05-31 Laboratory Lab, [facility] 1.2.840.114 [id number] 15:19:07 15:46:53 Only Fam Pob I Health [id number] [place] [id number] Professio [phone] [place] [address] Office Building [facility] 2020-05-31 2020-05-31 Laboratory Lab, [facility] Fam Pob I [facility] 1.2. 840.114 [id number] Univers 15:19:07 15:46:53 Only [facility] [id number] ity of [place] [id number] Jarad as Professio [phone] Ny dical [address] Office Building [facility] 2020-05-31 2020-05-31 Outpatient R [facility] [id number] Univers 15:40:00 15:40:00 ity [facility] 2020-05-17 2020-05-17 Laboratory Lab, [facility] 1.2.840.114 [id number] 14:48:04 15:08:04 Only Fam Pob I Health [id number] [place] [id number] Professio [phone] nal 044 Office Building One 2020-05-17 2020-05-17 Laboratory Lab, Adc Fam Pob I [facility] 1.2. 840.114 [id number] Univers 14:48:04 15:08:04 Only Yola Sánchez 350.1.13.10 ity of [place] [id number] Jarad as Professio [phone] Me dical [facility] [address] Office Building One 2020-05-17 2020-05-17 Outpatient R BERNARDA [facility] [id number] Univers 15:00:00 15:00:00 YOLA itafua [facility] 2020-01-18 2020-01-18 Outpatient JUAN BARILLAS SLE [id number] SLEH 00:00:00 00:00:00 [facility] Results Test Description Test Time Test Comments Results Result Comments Source BLOOD CULTURE 2021-01-20 11:07:00 Test Item Value Reference Range Interpretation Comme nts CULTURE (BEAKER) (test A From Aerobic Bottle Only code = 1095) Micrococcus lut eusof a fourth type GRAM STAIN RESULT (BEAKER) From aerobic bottle only: (test code = 1123) gram positive cocci in clusters BLOOD [id number] 16:01:00 Test Item Value Reference Range Interpretation Comments CULTURE (BEAKER) (test No growth in 5 days code = 1095) POCT-GLUCOSE [id number] 12:19:00 Test Item Value Reference Range Interpretation Comments POC-GLUCOSE METER 207 mg/dL 70-110 H : TESTED A T [facility] 6720 (BEAKER) (test code = GREG Khan [facility], 1538) 98559: Medical Photographer/Techni bushra ID = [id number] for STEFAN FUENTES WOUND CULTURE + GRAM [id number] 09:50:00 Test Item Value Reference Range Interpretation Comments CULTURE (BEAKER) A 1+ Enteroba cter (test code = cloacae 1095) GRAM STAIN <1+ WBCs RESULT (BEAKER) (test code = 1123) GRAM STAIN 1+ gram positive RESULT (BEAKER) cocci in clusters (test code = 633053) 3+ Skin floraPOCT-GLUCOSE [id number] 08:28:00 Test Item Value Reference Range Interpretation Comments POC-GLUCOSE METER 142 mg/dL 70-110 H : TESTED A T [facility] 6720 (BEAKER) (test code = [facility], 1538) 19172: Medical Photographer/Techni bushra ID = [id number] for STEFAN FUENTES BASIC METABOLIC [id number] 06:42:00 Test Item Value Reference Range Interpretation [...] S NOT APPLICABLE FOR DIALYSIS PATIEN TS. Medical Photographer ID - [id number] (HEMOGRAM ONLY)2021-01-18 06:11:00 Test [...] 0-0 (BEAKER) (test code = 413) POCT-GLUCOSE [id number] 20:51:00 Test Item Value Reference Range Interpretation Comments POC-GLUCOSE METER 227 mg/dL 70-110 H : TESTED A T [facility] 6720 (BEAKER) (test code = [facility], 153) 25574: Medical Photographer/Techni bushra ID = [id number] for MARY COX POCT-GLUCOSE [id number] 16:48:00 Test Item Value Reference Range Interpretation Comments POC-GLUCOSE METER 207 mg/dL 70-110 H : TESTED A T [facility] 6720 (BEAKER) (test code = [facility], 153) 45897: Medical Photographer/Techni bushra ID = [id number] for QUEEN GARCIA POCT-GLUCOSE [id number] 11:24:00 Test Item Value Reference Range Interpretation Comments POC-GLUCOSE METER 210 mg/dL 70-110 H : TESTED A T [facility] 6720 (BEAKER) (test code = [facility], 153) 88927: Medical Photographer/Techni bushra ID = [id number] for QUEEN GARCIA POCT-GLUCOSE [id number] 07:15:00 Test Item Value Reference Range Interpretation Comments POC-GLUCOSE METER 189 mg/dL 70-110 H : TESTED A T [facility] 6720 (BEAKER) (test code = [facility], 153) 88771: Medical Photographer/Techni bushra ID = [id number] for QUEEN GARCIA BASIC METABOLIC [id number] 06:49:00 Test Item Value Reference Range Interpretation [...] S NOT APPLICABLE FOR DIALYSIS PATIEN TS. Medical Photographer ID - SANIA MC (HEMOGRAM ONLY)2021-01-17 06:04:00 Test Item Value Reference [...] 0-0 (BEAKER) (test code = 413) POCT-GLUCOSE [id number] 20:30:00 Test Item Value Reference Range Interpretation Comments POC-GLUCOSE METER 223 mg/dL 70-110 H : Notified RN/MD: (PATRICIA) (test code = TESTED AT [facility] 6720 1538) [facility], [address]: Medical Photographer/Techni bushra ID = [id number] for MARY COX POCT-GLUCOSE [id number] 16:56:00 Test Item Value Reference Range Interpretation Comments POC-GLUCOSE METER 234 mg/dL 70-110 H : TESTED A T [facility] 6720 (PATRICIA) (test code = GREG Khan [facility], 1538) 96758: Medical Photographer/Techni bushra ID = [id number] for QUEEN GARCIA CT, EXTREMITY, LOWER WITHOUT CONTRAST, [id number] 16:40:00Unlisted Reason for Exam - Click Yes and Enter Reason Below->No [facility] : 1955 Sex: MFINAL REPORT CT of [...] complications. Allowing for limitations related to hardware str eak artifact, no acute fracture, or dislocation is identified. There is no evidence of bony erosion,or bony destructive change. No significant joint effusion [...] or fluid is identified. No bursitis is seen. IMPRESSION: Soft tissue defect in the anteromedial aspect of the proximal left leg. There is diffuse subcutaneous edema. No drainable collection is identified. Signed: Juvencio Olea Verified Date/Time: 01/16/2021 16:40:44 Reading Location: [facility] Radiology Reading Room POCT-GLUCOSE [id number] 10:32:00 Test Item Value Reference Range Interpretation Comments POC-GLUCOSE METER 306 mg/dL 70-110 H : TESTED A T [facility] 6720 (BEAKER) (test code = [facility], 1538) 84248: Medical Photographer/Techni bushra ID = [id number] for QUEEN GARCIA HEMOGLOBIN [id number] 08:22:00 Test Item Value Reference Range Interpretation Comments HEMOGLOBIN A1C (BEAKER) (test code = 12.5 % 4.3-6.1 H 368) POCT-GLUCOSE [id number] 07:42:00 Test Item Value Reference Range Interpretation Comments POC-GLUCOSE METER 272 mg/dL 70-110 H : TESTED A T [facility] 6720 (BEAKER) (test code = [facility], 1538) 04146: Medical Photographer/Techni bushra ID = [id number] for QUEEN GARCIA BASIC METABOLIC [id number] 05:33:00 Test Item Value Reference Range Interpretation [...] S NOT APPLICABLE FOR DIALYSIS PATIEN TS. Medical Photographer ID - MALIK WCBC (HEMOGRAM ONLY)2021-01-16 05:05:00 [...] (test code = 413) BLOOD CULTURE IDENTIFICATION [id number] 22:17:00 Test Item Value Reference Range Interpretation Comments LISTERIA MONOCYTOGENES (test Not detected Not detected code = 7844370) STAPHYLOCOCCUS (test code = Not detected Not detected 9612222) STAPHYLOCOCCUS AUREUS (test code Not detected Not detected = 0915592) STREPTOCOCCUS (test code = Not detected Not detected 3055731) STREPTOCOCCUS AGALACTIAE (GROUP Not detected Not detected B) (test code = 2328078) STREPTOCOCCUS PNEUMONIAE (test Not detected Not detected code = 0606841) STREPTOCOCCUS PYOGENES (GROUP A) Not detected Not detected (test code = 4018214) ACINETOBACTER BAUMANNII (test Not detected Not detected code = 5248504) HAEMOPHILUS INFLUENZAE (test Not detected Not detected code = 0424215) NEISSERIA MENINGITIDIS (test Not detected Not detected code = 7940814) ENTEROBACTERIACEAE (test code = Not detected Not detected 6700097) ENTEROBACTER CLOACOE COMPLEX Not detected Not detected (test code = 8921799) KLEBSIELLA OXYTOCA (test code = Not detected Not detected 8882837) KLEBSIELLA PNEUMONIAE (test code Not detected Not detected = 1650) PROTEUS (test code = 4890143) Not detected Not detected SERRATIA MARCESCENS (test code = Not detected Not detected 2130541) KATI ALBICANS (test code = Not detected Not detected 2084434) KATI GLABRATA (test code = Not detected Not detected 7992071) KATI KRUSEI (test code = Not detected Not detected 7334160) KATI PARAPSILOSIS (test code Not detected Not detected = 5640807) KATI TROPICALIS (test code = Not detected Not detected 9535547) ESCHERICHIA COLI (test code = Not detected Not detected 0322460) METHICILLIN-RESISTANCE GENE (test code = 1015183) VANCOMYCIN-RESISTANCE GENE (test code = 0780485) CARBAPENEM-RESISTANCE GENE (test code = 9743462) ENTEROCOCCUS-BEAKER (test code = Not detected Not detected 8748226) PSEUDOMONAS AERUGINOSA-BEAKER Not detected Not detected (test code = 9508336) Other bacteria and resistance markers not targeted by this PCR panel cannot be excluded; therefore clinical correlation and follow up of serology, culture results, and other molecular studies is required. The results are not intended to be used as the sole means for clinical diagnosis or patient management decisions. This sample was tested at the [facility] Molecular Diagnostics Laboratory using the TripChampArray Blood Culture ID Panel. It is FDA cleared and has been verified and approved by the [facility] Molecular Diagnostics Laboratory for clinical use. This laboratory is CLIA-certified and College ofAmerican Pathologists (CAP)-accredited to perform high complexity testing.POCT-GLUCOSE [id number] 21:06:00 Test Item Value Reference Range Interpretation Comments POC-GLUCOSE METER 248 mg/dL 70-110 H : TESTED A T [facility] 6720 (BEAKER) (test code = [facility], [facility]8) 91677: Medical Photographer/Techni bushra ID = [id number] for VONDA PARADA POCT-GLUCOSE [id number] 17:10:00 Test Item Value Reference Range Interpretation Comments POC-GLUCOSE METER 185 mg/dL 70-110 H : TESTED A T [facility] 6720 (BEAKER) (test code = [facility], 1538) 48330: Medical Photographer/Techni bushra ID = [id number] for STEFAN FUENTES POCT-GLUCOSE [id number] 12:46:00 Test Item Value Reference Range Interpretation Comments POC-GLUCOSE METER 247 mg/dL 70-110 H : TESTED A T [facility] 6720 (BEAKER) (test code = [facility], [facility]8) 37281: Medical Photographer/Techni bushra ID = [id number] for STEFAN FUENTES POCT-GLUCOSE [id number] 08:15:00 Test Item Value Reference Range Interpretation Comments POC-GLUCOSE METER 230 mg/dL 70-110 H : TESTED A T [facility] 6720 (BEAKER) (test code = [facility], [facility]8) 59995: Medical Photographer/Techni bushra ID = [id number] for STEFAN FUENTES BASIC METABOLIC [id number] 05:51:00 Test Item Value Reference Range Interpretation [...] S NOT APPLICABLE FOR DIALYSIS PATIEN TS. Medical Photographer ID - SANIA MCBC (HEMOGRAM ONLY)2021-01-15 05:34:00 [...] (BEAKER) (test code = 413) LACTIC ACID, [id number] 00:23:00 Test Item Value Reference Range Interpretation Comments LACTATE BLOOD VENOUS (2) (BEAKER) 1.42 mmol/L 0.50-2.20 (test code = 2872) Medical Photographer ID - DBPOCT-GLUCOSE [id number] 21:18:00 Test Item Value Reference Range Interpretation Comments POC-GLUCOSE METER 351 mg/dL 70-110 H : TESTED A T [facility] 6720 (BEAKER) (test code = [facility], 1538) 87580: Medical Photographer/Techni bushra ID = [id number] for MAX MARQUEZ (V)ELDA POCT-GLUCOSE [id number] 18:45:00 Test Item Value Reference Range Interpretation Comments POC-GLUCOSE METER 297 mg/dL 70-110 H : TESTED A T [facility] 6720 (BEAKER) (test code = [facility], 1538) 17380: Medical Photographer/Techni bushra ID = [id number] for STEFAN FUENTES POCT-GLUCOSE [id number] 18:13:00 Test Item Value Reference Range Interpretation Comments POC-GLUCOSE METER 300 mg/dL 70-110 H : TESTED A T [facility] 6720 (BEAKER) (test code = [facility], 153) 68421: Medical Photographer/Techni bushra ID = [id number] for CHIQUIS NICKERSON LACTIC ACID, [id number] 17:13:00 Test Item Value Reference Range Interpretation Comments LACTATE BLOOD VENOUS 2.48 mmol/L 0.50-2.20 H Specime n slightly (2) (BEAKER) (test hemolyzed code = 2872) Medical Photographer ID - DBKETONE, [id number] 16:08:00 Test Item Value Reference Range Interpretation Comments KETONES, BLOOD (BEAKER) (test code 0.2 mmol/L <0.4 = 1103) COMPREHENSIVE METABOLIC [id number] 15:56:00 Test Item Value Reference Range Interpretation [...] S NOT APPLICABLE FOR DIALYSIS PATIEN TS. Medical Photographer ID - DBCBC W/PLT COUNT & AUTO [id number] 15:46:00 Test Item Value Reference Range Interpretation [...] 0-1 PERCENT (BEAKER) (test code = 2801) [id number] 15:39:00 Test Item Value Reference Range Interpretation Comments PARTIAL THROMBOPLASTIN TIME 31.5 seconds 22.5-36.0 (BEAKER) (test code = 760) PROTHROMBIN TIME/[id number] 15:38:00 Test Item Value Reference Range Interpretation Comments PROTIME (BEAKER) 15.1 seconds 11.9-14.2 H (test code = 759) INR (BEAKER) (test 1.22 See_Comment [Automat ed message] code = 370) The system Geeklist generated this result transmitted ref erence range: <=5.90. The reference range was not used to int erpret this result as normal/abnormal . RECOMMENDED COUMADIN/WARFARIN INR THERAPY RANGESSTANDARD DOSE: 2.0 - 3.0 Includes: PROPHYLAXIS for venous thrombosis, systemic embolization; TREATMENT for venous thrombosis and/or pulmonary embolus.HIGH RISK: Target INR is 2.5-3.5 for patients with mechanical heart valves.LACTIC ACID, [id number] 15:36:00 Test Item Value Reference Range Interpretation Comments LACTATE BLOOD VENOUS 3.61 mmol/L 0.50-2.20 H Specime n slightly (2) (BEAKER) (test hemolyzed code = 5472) Medical Photographer ID - DBPOCT-GLUCOSE [id number] 15:31:00 Test Item Value Reference Range Interpretation Comments POC-GLUCOSE METER 414 mg/dL 70-110 HH : TESTED A T [facility] 6720 (PATRICIA) (test code = GREG [facility], 153) [address]: Medical Photographer/Techni bushra ID = [id number] for CHIQUIS NICKERSON TISSUE [id number] 12:40:00Surgical Pathology Report Case: [id number] Authorizing Provider: Rodri Nguyen, Collected:12/31/2020 08:19 AM Ordering Location: [facility] Received: 12/31/2020 09:18 AM PERIOPERATIVE SERVICES Pathologist: Freedom Chi MD Specimen: Seroma, LEFT LEG SEROMA SEROMA, LEFT LEG, EXCISION:SIMPLE CYST, CONSISTENT WITH CLINICAL SEROMA Signing Pathologist Direct Phone Line: [phone] signed by Freedom Chi MD on 01/03/2021 at 12:40 [id number] swelling of left lower leg SeromaReceived fresh labeled the patient's name, accession number and "left leg seroma" is a 4.4 x 3.7 x 1.5 cm previously disrupted unilocular cyst with a karimi-white, smooth inner lining. Nail Maker sections are submitted in A1-A2.NILAY Roger, HT (ASCP)PerformedBaylEmanate [facility], Department of Pathology, [address] [place] [address], [facility], [facility] of Pathology, [address] [place] [address], [facility], Department of Pathology, [address] [place] [address], KOPR-GLUCOSE [id number] 12:05:00 Test Item Value Reference Range Interpretation Comments POC-GLUCOSE METER 329 mg/dL 70-110 H : TESTED A T [facility] 6720 (BEMARTY) (test code = [facility], 153) 819[address]: Medical Photographer/Techni bushra ID = [id number] for An jane (pca2), Soraya POCT-GLUCOSE [id number] 08:18:00 Test Item Value Reference Range Interpretation Comments POC-GLUCOSE METER 249 mg/dL 70-110 H : TESTED A T [facility] 6720 (BEAKER) (test code = [facility], 1538) 61754: Medical Photographer/Techni bushra ID = [id number] for An jane (pca2), Soraya POCT-GLUCOSE [id number] 21:17:00 Test Item Value Reference Range Interpretation Comments POC-GLUCOSE METER 305 mg/dL 70-110 H : TESTED A T [facility] 6720 (BEAKER) (test code = [facility], 1538) 73179: Medical Photographer/Techni bushra ID = [id number] for BECK PAZ POCT-GLUCOSE [id number] 18:48:00 Test Item Value Reference Range Interpretation Comments POC-GLUCOSE METER 283 mg/dL 70-110 H : TESTED A T [facility] 6720 (BEAKER) (test code = [facility], 1538) 81893: Medical Photographer/Techni bushra ID = [id number] for An jane (pca2), Soraya GLUCOSE-STAT [id number] 15:14:00 Test Item Value Reference Range Interpretation Comments GLUCOSE RANDOM (BEAKER) (test code 269 mg/dL 70-110 H = 652) CALCIUM, [id number] 15:14:00 Test Item Value Reference Range Interpretation Comments CALCIUM IONIZED (BEAKER) (test 1.06 mmol/L 1.12-1.27 L code = 698) PH, BLOOD (BEAKER) (test code = 7.40 1810) HGB/HCT (H&H) - STAT [id number] 15:13:00 Test Item Value Reference Range Interpretation Comments HEMOGLOBIN (BEAKER) (test code = 14.5 GM/DL 13.0-16.8 410) HEMATOCRIT (BEAKER) (test code = 43.0 % 40.0-50.0 411) POTASSIUM-STAT [id number] 15:13:00 Test Item Value Reference Range Interpretation Comments POTASSIUM (BEAKER) (test code = 3.9 meq/L 3.6-5.5 379) POCT-GLUCOSE [id number] 09:46:00 Test Item Value Reference Range Interpretation Comments POC-GLUCOSE METER 243 mg/dL 70-110 H : TESTED A T [facility] 6720 (BEAKER) (test code = [facility], 1538) 68733: Medical Photographer/Techni bushra ID = [id number] for NUBIA CULVER POCT-GLUCOSE [id number] 06:10:00 Test Item Value Reference Range Interpretation Comments POC-GLUCOSE METER 300 mg/dL 70-110 H : TESTED A T [facility] 6720 (BEAKER) (test code [facility], = 1538) 05484: Medical Photographer/Techni bushra ID = [id number] for ITALO FLAHERTY SARS-COV2/RT-PCR ([facility])2020-12-26 23:14:00 Test Item Value Reference Range Interpretation Comments SARS-COV2/RT-PCR (test Negative Not Detected, Negative, code = 9928375) See external report for linked test SARS-COV-[address] [facility] (test code = 4894338) Negative result for this test determines that [...] justifying the authorization of the emergency use ofin vitro diagnostic tests for detection and/or diagnosis of COVID-19 is terminated under Section 564(b)(2) of the Act or the EUA is revoked under Section 564(g) of the Act.Testing was performed using the Scott SARS-CoV-2 assay.Fact Sheet for Healthcare Providers:https://www.Yamisee.[employer]/caitie/RT_SAR T-PfQ-7_BVK_Olzj_Cuqgg_58-096606.pdfFact Sheet for Healthcare Patients:https://www.[employer]amisee.[employer]/s al/SV_BKXK-SzR-3_Qhyadjg_Qckl_Cryld_EQ_62-377018R2.pdfPerforming Laboratory:[facility] [place] [address] BASIC METABOLIC [id number] 12:39:00 Test Item Value Reference Range Interpretation [...] S NOT APPLICABLE FOR DIALYSIS PATIEN TS. Medical Photographer ID - SANIA MPROTHROMBIN TIME/[id number] 12:34:00 Test Item Value Reference Range Interpretation Comments PROTIME (BEAKER) 12.9 seconds 11.9-14.2 (test code = 759) INR (BEAKER) (test 1.00 See_Comment [Automat ed message] code = 370) The system Geek[employer] generated this result transmitted ref erence range: <=5.90. The reference range was not used to int erpret this result as normal/abnormal . RECOMMENDED COUMADIN/WARFARIN INR THERAPY RANGESSTANDARD DOSE: 2.0 - 3.0 Includes: PROPHYLAXIS for venous thrombosis, systemic embolization; TREATMENT for venous thrombosis and/or pulmonary embolus.HIGH RISK: Target INR is 2.5-3.5 for patients with mechanical heart valves.CBC W/PLT COUNT & AUTO [id number] 12:16:00 Test Item Value Reference Range Interpretation [...] PERCENT (BEAKER) (test code = 2801) POCT-GLUCOSE [id number] 11:27:00 Test Item Value Reference Range Interpretation Comments POC-GLUCOSE METER 293 mg/dL 70-110 H : TESTED A T [facility] 6720 (BEAKER) (test code = [facility], 1538) 33400: Medical Photographer/Techni bushra ID = [id number] for CARLENE ANAND POCT-GLUCOSE [id number] 07:46:00 Test Item Value Reference Range Interpretation Comments POC-GLUCOSE METER 154 mg/dL 70-110 H : TESTED A T [facility] 6720 (BEAKER) (test code = [facility], 1538) 05075: Medical Photographer/Techni bushra ID = [id number] for CARLENE ANAND [id number] 06:29:00 Test Item Value Reference Range Interpretation Comments MAGNESIUM (BEAKER) 2.0 mg/dL 1.6-2.6 Specimen slightly (test code = 627) hemolyzed Medical Photographer ID - MALIK [id number] 06:29:00 Test Item Value Reference Range Interpretation Comments PHOSPHORUS (BEAKER) 4.0 mg/dL 2.3-4.7 Specimen slightly (test code = 604) hemolyzed Medical Photographer ID - MALIK WCBC (HEMOGRAM ONLY)2020-01-06 06:23:00 Test Item Value [...] H (BEAKER) (test code = 413) CALCIUM, [id number] 05:39:00 Test Item Value Reference Range Interpretation Comments CALCIUM IONIZED (BEAKER) (test 1.07 mmol/L 1.12-1.27 L code = 698) PH, BLOOD (BEAKER) (test code = 7.46 1810) POCT-GLUCOSE [id number] 22:28:00 Test Item Value Reference Range Interpretation Comments POC-GLUCOSE METER 161 mg/dL 70-110 H : TESTED A T [facility] 6720 (BEAKER) (test code = [facility], 153) 95208: Medical Photographer/Techni bushra ID = [id number] for BECK PAZ POCT-GLUCOSE [id number] 16:46:00 Test Item Value Reference Range Interpretation Comments POC-GLUCOSE METER 112 mg/dL 70-110 H : TESTED A T [facility] 6720 (BEAKER) (test code = [facility], 153) 37694: Medical Photographer/Techni bushra ID = [id number] for WI LLIAMS, TYNEKA SPUTUM CULTURE + GRAM [id number] 13:35:00 Test Item Value Reference Range Interpretation Comments CULTURE (BEAKER) 2+ Normal respiratory (test code = 1095) dexter present GRAM STAIN RESULT <1+ WBCs (BEAKER) (test code = 1123) GRAM STAIN RESULT 5-10 epithelial cells (BEAKER) (test code = 36378) GRAM STAIN RESULT 1+ gram positive cocci (BEAKER) (test code = in chains, pairs and 03133) clusters GRAM STAIN RESULT 1+ gram variable rods (BEAKER) (test code = 676861) POCT-GLUCOSE [id number] 11:51:00 Test Item Value Reference Range Interpretation Comments POC-GLUCOSE METER 245 mg/dL 70-110 H : TESTED A T [facility] 6720 (BEAKER) (test code = [facility] [employer] [facility], 1538) 948[address]: Medical Photographer/Techni bushra ID = [id number] for MERRY GARCAINEKA POCT-GLUCOSE [id number] 07:33:00 Test Item Value Reference Range Interpretation Comments POC-GLUCOSE METER 256 mg/dL 70-110 H : TESTED A T [facility] 6720 (BEAKER) (test code = [facility] [employer] [facility], 1538) 78917: Medical Photographer/Techni bushra ID = [id number] for DION GARCIAIA, MERRYNEWINIFRED CALCIUM, [id number] 06:25:00 Test Item Value Reference Range Interpretation Comments CALCIUM IONIZED (BEAKER) (test 1.05 mmol/L 1.12-1.27 L code = 698) PH, BLOOD (BEAKER) (test code = 7.49 1810) [id number] 04:39:00 Test Item Value Reference Range Interpretation Comments PHOSPHORUS (BEAKER) (test code = 3.2 mg/dL 2.3-4.7 604) Medical Photographer ID - SANIA [id number] 04:39:00 Test Item Value Reference Range Interpretation Comments MAGNESIUM (BEAKER) (test code = 1.9 mg/dL 1.6-2.6 627) Medical Photographer ID - SANIA MBASIC METABOLIC [id number] 04:39:00 Test Item Value Reference Range Interpretation [...] S NOT APPLICABLE FOR DIALYSIS PATIEN TS. Medical Photographer ID - SANIA MCBC (HEMOGRAM ONLY)2020-01-05 04:22:00 [...] H (BEAKER) (test code = 413) POCT-GLUCOSE [id number] 21:09:00 Test Item Value Reference Range Interpretation Comments POC-GLUCOSE METER 333 mg/dL 70-110 H : TESTED A T [facility] 6720 (BEAKER) (test code = [facility], 153) 19119: Medical Photographer/Techni bushra ID = [id number] for Dana Morley BASIC METABOLIC [id number] 17:36:00 Test Item Value Reference Range Interpretation [...] S NOT APPLICABLE FOR DIALYSIS PATIEN TS. Medical Photographer ID - BSPOCT-GLUCOSE [id number] 17:13:00 Test Item Value Reference Range Interpretation Comments POC-GLUCOSE METER 254 mg/dL 70-110 H : TESTED A T [facility] 6720 (BEAKER) (test code = [facility], 153) 38284: Medical Photographer/Techni bushra ID = [id number] for SHAUN MIKE POCT-GLUCOSE [id number] 12:25:00 Test Item Value Reference Range Interpretation Comments POC-GLUCOSE METER 271 mg/dL 70-110 H : TESTED A T [facility] 6720 (BEAKER) (test code = [facility], 153) 64001: Medical Photographer/Techni bushra ID = [id number] for GERHARD KUHN POCT-GLUCOSE [id number] 08:24:00 Test Item Value Reference Range Interpretation Comments POC-GLUCOSE METER 250 mg/dL 70-110 H : [facility] (BEAKER) (test code = [facility] [place], 1538) 97468: Medical Photographer/Techni bushra ID = [id number] for Andrea Grey [id number] 06:40:00 Test Item Value Reference Range Interpretation Comments PHOSPHORUS (BEAKER) (test code = 3.3 mg/dL 2.3-4.7 604) Medical Photographer ID - FILIPPO [id number] 06:40:00 Test Item Value Reference Range Interpretation Comments MAGNESIUM (BEAKER) (test code = 2.0 mg/dL 1.6-2.6 627) Medical Photographer ID - FILIPPO LBASIC METABOLIC [id number] 06:40:00 Test Item Value Reference Range Interpretation [...] S NOT APPLICABLE FOR DIALYSIS PATIEN TS. Medical Photographer ID - FILIPPO LCBC (HEMOGRAM ONLY)2020-01-04 06:07:00 Test Item Value [...] H (BEAKER) (test code = 413) CALCIUM, [id number] 05:55:00 Test Item Value Reference Range Interpretation Comments CALCIUM IONIZED (BEAKER) (test 1.03 mmol/L 1.12-1.27 L code = 698) PH, BLOOD (BEAKER) (test code = 7.46 1810) RAD, CHEST, 1 VIEW, NON [id number] 05:36:00Reason for exam:->s/p ACB, fluid overloadShould this be performed at the bedside?->YesFINAL REPORT CLINICAL INDICATION: Postop Comparison: 01/03/2020 The cardiomediastinal contours are stable. Central pulmonary vascular congestion and bilateral parenchymal opacities are partially improved, suggesting improving pulmonary edema. There is no pneumothorax or significantpleural collection. A right IJ CVC has been removed. Signed: Evie Alvaresort Verified Date/Sunday e: 01/04/2020 05:36:24 POCT-GLUCOSE [id number] 22:09:00 Test Item Value Reference Range Interpretation Comments POC-GLUCOSE METER 260 mg/dL 70-110 H : TESTED A T [facility] 6720 (BEAKER) (test code = [facility], 153) 40248: Medical Photographer/Techni bushra ID = [id number] for Dana Morley BASIC METABOLIC [id number] 17:47:00 Test Item Value Reference Range Interpretation [...] S NOT APPLICABLE FOR DIALYSIS PATIEN TS. Medical Photographer ID - VIK EPOCT-GLUCOSE [id number] 11:45:00 Test Item Value Reference Range Interpretation Comments POC-GLUCOSE METER 276 mg/dL 70-110 H : TESTED A T [facility] 6720 (BEAKER) (test code = [facility], 153) 72000: Medical Photographer/Techni bushra ID = [id number] for MED JOHNATHANRUTHNA POCT-GLUCOSE [id number] 07:39:00 Test Item Value Reference Range Interpretation Comments POC-GLUCOSE METER 219 mg/dL 70-110 H : TESTED A T [facility] 6720 (BEAKER) (test code = [facility], 153) 90576: Medical Photographer/Techni bushra ID = [id number] for Agustina dimpleKaty CALCIUM, [id number] 03:58:00 Test Item Value Reference Range Interpretation Comments CALCIUM IONIZED (BEAKER) (test 1.04 mmol/L 1.12-1.27 L code = 698) PH, BLOOD (BEAKER) (test code = 7.41 1810) BASIC METABOLIC [id number] 03:57:00 Test Item Value Reference Range Interpretation [...] S NOT APPLICABLE FOR DIALYSIS PATIEN TS. Medical Photographer ID - [id number] 03:53:00 Test Item Value Reference Range Interpretation Comments PHOSPHORUS (BEAKER) (test code = 3.3 mg/dL 2.3-4.7 604) Medical Photographer ID - [id number] 03:53:00 Test Item Value Reference Range Interpretation Comments MAGNESIUM (BEAKER) (test code = 1.9 mg/dL 1.6-2.6 627) Medical Photographer ID - LAHEPATIC FUNCTION [id number] 03:53:00 Test Item Value Reference Range Interpretation [...] (test code = 34 U/L 6-55 347) Medical Photographer ID - [id number] 03:53:00 Test Item Value Reference Range Interpretation Comments AMYLASE (BEAKER) (test code = 349) 183 U/L 25-125 H Medical Photographer ID - [id number] 03:53:00 Test Item Value Reference Range Interpretation Comments LIPASE (BEAKER) (test code = 749) 454 U/L 8-78 H Medical Photographer ID - LACBC (HEMOGRAM ONLY)2020-01-03 03:38:00 Test [...] = 413) RAD, CHEST, 1 VIEW, NON [id number] 03:06:00Reason for exam:->s/p ACB, fluid overloadShould this be performed at the bedside?->YesFINAL REPORT RAD, CHEST, 1 VIEW, NON DEPT INDICATION: s/p ACB, fluid overload COMPARISON: Prior day's exam FINDINGS: Portable frontal view of the chest. IMPRESSION: Support Lines: Stable right IJ central venous catheter. Lungs and pleura: No significant change in bilateral venous congestion and interstitial edema. No interval consolidation. No pneumothorax.Heart and mediastinum: Stable contours. Additional findings: None. Signed: Sen Joshi MDReport Verified Date/Time: 01/03/2020 03:06:33 POCT-GLUCOSE [id number] 22:56:00 Test Item Value Reference Range Interpretation Comments POC-GLUCOSE METER 224 mg/dL 70-110 H : TESTED A T [facility] 6720 (BEAKER) (test code = [facility], 1538) 67353: Medical Photographer/Techni bushra ID = [id number] for DO JONEL SHAKA [id number] 18:17:00 Test Item Value Reference Range Interpretation Comments MAGNESIUM (BEAKER) 2.1 mg/dL 1.6-2.6 Specimen slightly (test code = 627) hemolyzed Medical Photographer ID - [id number] 18:17:00 Test Item Value Reference Range Interpretation Comments POTASSIUM (BEAKER) 4.0 meq/L 3.5-5.1 Specimen slightly (test code = 379) hemolyzed Medical Photographer ID - NTPU/S, ABDOMINAL, [id number] 17:44:00Reason for exam:- >abdomoanl pain, increased amylase [...] fluid. KIDNEYS: Normal in size bilaterally. No hydrone phrosis. No sonographically evident solid mass lesion. There is likely a prominent renal. In the right interpolar kidney which measures 1 cm. Alternatively, this may be a small simple cyst. Additional,similar-appearing region measures 1 cm in the left upper pole. No routine follow-up imaging is recommended. Small left pleural effusion. IMPRESSION: 1.Prior cholecystomy. The common bile duct was unable to be visualized. 2.The pancreas was not visualized due to overlying bowel gas. 3.Diffuse fatty infiltration of the liver with mild splenomegaly. 4.Small left pleural effusion. Signed: Harish Hooper Verified Date/Time: 01/02/2020 17:44:05 Reading Location: [address] Body Reading Room POCT-GLUCOSE [id number] 17:37:00 Test Item Value Reference Range Interpretation Comments POC-GLUCOSE METER 251 mg/dL 70-110 H : TESTED A T [facility] 6720 (VIDA DiagnosticsAKER) (test code = [facility], 1538) 49292: Medical Photographer/Techni bushra ID = [id number] for HEATHER DANIEL [id number] 14:12:00 Test Item Value Reference Range Interpretation Comments PROCALCITONIN (BEAKER) (test code 0.26 ng/mL <0.05 H = 3036) SEPSIS RISK (ng/mL)Low: 0.05-0.50Intermediate: 0.51-2.00High: >=2.01LIPASE 2020-01-02 14:01:00 Test Item Value Reference Range Interpretation Comments LIPASE (BEAKER) (test code = 749) 508 U/L 8-78 H Medical Photographer ID - [id number] 14:01:00 Test Item Value Reference Range Interpretation Comments AMYLASE (BEAKER) (test 177 U/L 25-125 H Speci men slightly code = 349) hemolyzed Medical Photographer ID - NTPHEPATIC FUNCTION [id number] 14:01:00 Test Item Value Reference Range Interpretation [...] Specimen slightly (test code = 347) hemolyzed Medical Photographer ID - [id number] 13:46:00 Test Item Value Reference Range Interpretation [...] code = 413) URINALYSIS W/ REFLEX URINE [id number] 11:53:00 Test Item Value Reference Range Interpretation [...] = 516) SOURCE(BEAKER) (test code = 2795) Medical Photographer ID - [auto]Medical Photographer ID - techPOCT-GLUCOSE [id number] 11:47:00 Test Item Value Reference Range Interpretation Comments POC-GLUCOSE METER 243 mg/dL 70-110 H : TESTED A T [facility] 6720 (BEAKER) (test code = [facility], 1538) 41079: Medical Photographer/Techni bushra ID = [id number] for SHIRLEY FOX POCT-GLUCOSE [id number] 07:33:00 Test Item Value Reference Range Interpretation Comments POC-GLUCOSE METER 263 mg/dL 70-110 H : TESTED A T [facility] 6720 (BEAKER) (test code = [facility], 1538) 69370: Medical Photographer/Techni bushra ID = [id number] for HEATHER DANIEL CALCIUM, [id number] 05:08:00 Test Item Value Reference Range Interpretation Comments CALCIUM IONIZED (BEAKER) (test 1.06 mmol/L 1.12-1.27 L code = 698) PH, BLOOD (BEAKER) (test code = 7.43 1810) OXYGEN SATURATION, [id number] 04:46:00 Test Item Value Reference Range Interpretation Comments O2 SATURATION (MEASURED) (BEAKER) 64.2 % (test code = 1455) [id number] 03:48:00 Test Item Value Reference Range Interpretation Comments PHOSPHORUS (BEAKER) (test code = 2.8 mg/dL 2.3-4.7 604) Medical Photographer ID - SANIA [id number] 03:48:00 Test Item Value Reference Range Interpretation Comments MAGNESIUM (BEAKER) (test code = 2.0 mg/dL 1.6-2.6 627) Medical Photographer ID - SANIA MBASIC METABOLIC [id number] 03:48:00 Test Item Value Reference Range Interpretation [...] S NOT APPLICABLE FOR DIALYSIS PATIEN TS. Medical Photographer ID - SANIA MCBC (HEMOGRAM ONLY)2020-01-02 03:36:00 [...] = 413) RAD, CHEST, 1 VIEW, NON [id number] 02:20:00Reason for exam:->s/p ACB, fluid overloadShould this be performed at the bedside?->YesFINAL REPORT CLINICAL INDICATION: Postop Comparison: 01/01/2020 The cardiomediastinal contours are stable. The lung volumes remain low. Central pulmonary vascular prominence and bilateral parenchymal opacities are unchanged. There is no pneumothorax. A right IJ CVC remains in place. Signed: Evie Alvares MDReport Verified Date/Time: 01/02/2020 02:20:36 SPUTUM CULTURE + GRAM [id number] 00:39:00 Test Item Value Reference Range Interpretation Comments CULTURE (BEAKER) Oropharyngeal (test code = 1095) contamination, specimen rejected. Recollect requested. GRAM STAIN RESULT 1+ WBCs (BEAKER) (test code = 1123) GRAM STAIN RESULT >25 epithelial cells (BEAKER) (test code = 82963) GRAM STAIN RESULT 4+ gram positive cocci in (BEAKER) (test code chains, pairs and = 98847) clusters POCT-GLUCOSE [id number] 22:45:00 Test Item Value Reference Range Interpretation Comments POC-GLUCOSE METER 237 mg/dL 70-110 H : TESTED A T [facility] 6720 (BEAKER) (test code = [facility], 1538) 76990: Medical Photographer/Techni bushra ID = [id number] for AMBER CHU [id number] 17:09:00 Test Item Value Reference Range Interpretation Comments POTASSIUM (BEAKER) (test code = 4.0 meq/L 3.5-5.1 379) Medical Photographer ID - NTPEvery 8 hours PRN for Creatinine greater than or equal to 2 mg/dL.[id number] 17:09:00 Test Item Value Reference Range Interpretation Comments MAGNESIUM (BEAKER) (test code = 2.2 mg/dL 1.6-2.6 627) Medical Photographer ID - NTPEvery 8 hours PRN for Creatinine greater than or equal to 2 mg/dL.CALCIUM, [id number] 16:52:00 Test Item Value Reference Range Interpretation Comments CALCIUM IONIZED (BEAKER) (test 1.07 mmol/L 1.12-1.27 L code = 698) PH, BLOOD (BEAKER) (test code = 7.43 1810) POCT-GLUCOSE [id number] 16:46:00 Test Item Value Reference Range Interpretation Comments POC-GLUCOSE METER 213 mg/dL 70-110 H : TESTED A T [facility] 6720 (BEAKER) (test code = [facility], 1538) 95264: Medical Photographer/Techni bushra ID = [id number] for Ayesha Simeon POCT-GLUCOSE [id number] 12:18:00 Test Item Value Reference Range Interpretation Comments POC-GLUCOSE METER 330 mg/dL 70-110 H : TESTED A T [facility] 6720 (BEAKER) (test code = [facility], 1538) 02887: Medical Photographer/Techni bushra ID = [id number] for Ayesha Simeon [id number] 11:46:00 Test Item Value Reference Range Interpretation Comments PROCALCITONIN (BEAKER) (test code 0.25 ng/mL <0.05 H = 3036) SEPSIS RISK (ng/mL)Low: 0.05-0.50Intermediate: 0.51-2.00High: >=2.01POTASSIUM 2020-01-01 11:31:00 Test Item Value Reference Range Interpretation Comments POTASSIUM (BEAKER) (test code = 3.8 meq/L 3.5-5.1 379) Medical Photographer ID - SANIA MEvery 8 hours PRN for Creatinine greater than or equal to 2 mg/dL.[id number] 11:31:00 Test Item Value Reference Range Interpretation Comments MAGNESIUM (BEAKER) (test code = 2.2 mg/dL 1.6-2.6 627) Medical Photographer ID - SANIA MEvery 8 hours PRN for Creatinine greater than or equal to 2 mg/dL.POCT-GLUCOSE [id number] 07:57:00 Test Item Value Reference Range Interpretation Comments POC-GLUCOSE METER 250 mg/dL 70-110 H : TESTED A T [facility] 6720 (BEAKER) (test code = [facility], 1538) 59[address]: Medical Photographer/Techni bushra ID = [id number] for Ayesha Simeon BASIC METABOLIC [id number] 04:22:00 Test Item Value Reference Range Interpretation [...] S NOT APPLICABLE FOR DIALYSIS PATIEN TS. Medical Photographer ID - SANIA [id number] 04:18:00 Test Item Value Reference Range Interpretation Comments PHOSPHORUS (BEAKER) (test code = 2.6 mg/dL 2.3-4.7 604) Medical Photographer ID - SANIA [id number] 04:18:00 Test Item Value Reference Range Interpretation Comments MAGNESIUM (BEAKER) (test code = 1.9 mg/dL 1.6-2.6 627) Medical Photographer ID - SANIA MCBC (HEMOGRAM ONLY)2020-01-01 04:12:00 [...] H (BEAKER) (test code = 413) CALCIUM, [id number] 04:01:00 Test Item Value Reference Range Interpretation Comments CALCIUM IONIZED (BEAKER) (test 1.01 mmol/L 1.12-1.27 L code = 698) PH, BLOOD (BEAKER) (test code = 7.46 1810) OXYGEN SATURATION, [id number] 04:00:00 Test Item Value Reference Range Interpretation Comments O2 SATURATION (MEASURED) (BEAKER) 65.4 % (test code = 1455) RAD, CHEST, 1 VIEW, NON [id number] 02:52:00Reason for exam:->s/p ACBShould this be performed at the bedside?->YesFINAL REPORT CLINICAL INDICATION: Postop Comparison: 12/31/2019 The cardiomediastinal contours are stable. The lung volumes remain low. Central pulmonary vascular prominence and bilateral parenchymal opacities are unchanged. There is no pneumothorax. A left chest tube has been removed. A right IJ CVC remains in place. Signed: Evie Alvares MDReport Verified Date/Time: 01/01/2020 02:52:30 POCT- GLUCOSE [id number] 22:43:00 Test Item Value Reference Range Interpretation Comments POC-GLUCOSE METER 195 mg/dL 70-110 H : TESTED A T [facility] 6720 ([employer]) (test code = [facility] [place], 1538) 388[address]: Medical Photographer/Techni bushra ID = [id number] for DO SHAKA REMY POCT-GLUCOSE [id number] 16:47:00 Test Item Value Reference Range Interpretation Comments POC-GLUCOSE METER 213 mg/dL 70-110 H : TESTED A T [facility] 6720 ([employer]) (test code = [facility], 1538) 90405: Medical Photographer/Techni bushra ID = [id number] for SHIRLEY FOX [id number] 14:33:00 Test Item Value Reference Range Interpretation Comments POTASSIUM (BEAKER) (test code = 3.9 meq/L 3.5-5.1 379) Medical Photographer ID - NTPCheck Serum Potassium level 2 hours after oral potassium replacement completed or 30 min after intravenous potassium replacement. [id number] 14:33:00 Test Item Value Reference Range Interpretation Comments MAGNESIUM (BEAKER) (test code = 2.1 mg/dL 1.6-2.6 627) Medical Photographer ID - NTPCheck Serum Potassium level 2 hours after oral potassium replacement completed or 30 min after intravenous potassium replacement.LACTIC ACID, [id number] 12:28:00 Test Item Value Reference Range Interpretation Comments LACTATE BLOOD VENOUS (2) (BEAKER) 1.90 mmol/L 0.50-2.20 (test code = 2872) Medical Photographer ID - NTPPOCT-GLUCOSE [id number] 11:20:00 Test Item Value Reference Range Interpretation Comments POC-GLUCOSE METER 183 mg/dL 70-110 H : TESTED A T [facility] 6720 (BEAKER) (test code = [facility], 1538) 77987: Medical Photographer/Techni bushra ID = [id number] for SHIRLEY FOX POCT-GLUCOSE [id number] 06:30:00 Test Item Value Reference Range Interpretation Comments POC-GLUCOSE METER 161 mg/dL 70-110 H : TESTED A T [facility] 6720 (BEAKER) (test code = [facility], 1538) 65926: Medical Photographer/Techni bushra ID = [id number] for FERDINAND JARAMILLO BASIC METABOLIC [id number] 05:21:00 Test Item Value Reference Range Interpretation [...] S NOT APPLICABLE FOR DIALYSIS PATIEN TS. Medical Photographer ID - SANIA MOXYGEN SATURATION, [id number] 05:17:00 Test Item Value Reference Range Interpretation Comments O2 SATURATION (MEASURED) (BEAKER) 97.2 % (test code = 1455) [id number] 05:15:00 Test Item Value Reference Range Interpretation Comments PHOSPHORUS (BEAKER) (test code = 2.6 mg/dL 2.3-4.7 604) Medical Photographer ID - SANIA [id number] 05:15:00 Test Item Value Reference Range Interpretation Comments MAGNESIUM (BEAKER) (test code = 2.0 mg/dL 1.6-2.6 627) Medical Photographer ID - SANIA MBLOOD GAS, [id number] 04:47:00 Test Item Value Reference Range Interpretation [...] (test code = 1819) 40.0 % CALCIUM, [id number] 04:47:00 Test Item Value Reference Range Interpretation [...] = 413) RAD, CHEST, 1 VIEW, NON [id number] 03:58:00Reason for exam:->s/p ACBShould this be performed at the bedside?->YesFINAL REPORT RAD, CHEST, 1 VIEW, NON DEPT INDICATION: s/p ACB COMPARISON: Priorday's exam FINDINGS: Portable frontal view of the chest. IMPRESSION: Support Lines: Interval extubation and removal of the enteric tube. Stable right IJ central venous catheter and left chest tube. Lungs and pleura: No significant change in central venous congestion and scattered bilateral interstitial opacities. No sizable effusion. No pneumothorax.Heart and mediastinum: Stable contours. Additional findings: None. Signed: Sen Joshi MDReport Verified Date/Time: 12/31/2019 03:58:10 POCT-GLUCOSE [id number] 23:57:00 Test Item Value Reference Range Interpretation Comments POC-GLUCOSE METER 133 mg/dL 70-110 H : TESTED A T [facility] 6720 (BEAKER) (test code = [facility], 1538) 31274: Medical Photographer/Techni bushra ID = [id number] for DO MINGUEZ, SHAKA POCT-GLUCOSE [id number] 21:43:00 Test Item Value Reference Range Interpretation Comments POC-GLUCOSE METER 135 mg/dL 70-110 H : TESTED A T [facility] 6720 (BEAKER) (test code = [facility], 1538) 14604: Medical Photographer/Techni bushra ID = [id number] for DO MINGUEZ, SHAKA POCT-GLUCOSE [id number] 18:50:00 Test Item Value Reference Range Interpretation Comments POC-GLUCOSE METER 126 mg/dL 70-110 H : TESTED A T [facility] 6720 (BEAKER) (test code = [facility], 1538) 73486: Medical Photographer/Techni bushra ID = [id number] for Steve Clemens [id number] 17:38:00 Test Item Value Reference Range Interpretation Comments MAGNESIUM (BEAKER) (test code = 2.1 mg/dL 1.6-2.6 627) Medical Photographer ID - SANIA MBASIC METABOLIC [id number] 17:38:00 Test Item Value Reference Range Interpretation [...] S NOT APPLICABLE FOR DIALYSIS PATIEN TS. Medical Photographer ID - SANIA MPOCT-GLUCOSE [id number] 16:38:00 Test Item Value Reference Range Interpretation Comments POC-GLUCOSE METER 129 mg/dL 70-110 H : TESTED A T [facility] 6720 ([employer]) (test code = [facility], 1538) 33161: Medical Photographer/Techni bushra ID = [id number] for Ga rner, Steve POCT-GLUCOSE [id number] 14:43:00 Test Item Value Reference Range Interpretation Comments POC-GLUCOSE METER 138 mg/dL 70-110 H : TESTED A T [facility] 6720 ([employer]) (test code = [facility], 1538) 33918: Medical Photographer/Techni bushra ID = [id number] for Ga rner, Steve POCT-GLUCOSE [id number] 11:39:00 Test Item Value Reference Range Interpretation Comments POC-GLUCOSE METER 153 mg/dL 70-110 H : TESTED A T [facility] 6720 (BEAKER) (test code = [facility], 1538) 10349: Medical Photographer/Techni bushra ID = [id number] for Ga rner, Steve POCT-GLUCOSE [id number] 08:58:00 Test Item Value Reference Range Interpretation Comments POC-GLUCOSE METER 183 mg/dL 70-110 H : TESTED A T [facility] 6720 ([employer]) (test code = [facility], 1538) 94326: Medical Photographer/Techni bushra ID = [id number] for Ga rner, Steve LACTIC ACID, [id number] 06:39:00 Test Item Value Reference Range Interpretation Comments LACTATE BLOOD 4.0 mmol/L 0.5-2.2 HH Specimen marke dly ARTERIAL (2) ([employer]) hemoly zed (test code = 2874) Medical Photographer ID - SANIA MBLOOD GAS, [id number] 05:58:00 Test Item Value Reference Range Interpretation [...] (test code = 1819) 100.0 % GLUCOSE-STAT [id number] 05:58:00 Test Item Value Reference Range Interpretation Comments GLUCOSE RANDOM (BEAKER) (test code 201 mg/dL 70-110 H = 652) HGB/HCT (H&H) - STAT [id number] 05:58:00 Test Item Value Reference Range Interpretation Comments HEMOGLOBIN (BEAKER) (test code = 8.2 g/dL 13.0-16.8 L 410) HEMATOCRIT (BEAKER) (test code = 24.0 % 40.0-50.0 L 411) SODIUM NA-STAT [id number] 05:57:00 Test Item Value Reference Range Interpretation Comments SODIUM (BEAKER) (test code = 381) 136 meq/L 136-145 POTASSIUM-STAT [id number] 05:57:00 Test Item Value Reference Range Interpretation [...] 0-0 (BEAKER) (test code = 413) POCT-GLUCOSE [id number] 05:18:00 Test Item Value Reference Range Interpretation Comments POC-GLUCOSE METER 202 mg/dL 70-110 H : [facility]ED A T [facility] 6720 (BEAKER) [facility] 1538[facility] 83435: Medical Photographer/Techni bushra ID = [id number] for DE CKER, ALLA LACTIC ACID, [id number] 04:12:00 Test Item Value Reference Range Interpretation Comments LACTATE BLOOD VENOUS (2) (BEAKER) 4.68 mmol/L 0.50-2.20 HH (test code = 2872) Medical Photographer ID - SANIA MBASIC METABOLIC [id number] 04:09:00 Test Item Value Reference Range Interpretation [...] S NOT APPLICABLE FOR DIALYSIS PATIEN TS. Medical Photographer ID - SANIA [id number] 04:01:00 Test Item Value Reference Range Interpretation Comments PHOSPHORUS (BEAKER) (test code = 3.7 mg/dL 2.3-4.7 604) Medical Photographer ID - SANIA [id number] 04:01:00 Test Item Value Reference Range Interpretation Comments MAGNESIUM (BEAKER) (test code = 1.8 mg/dL 1.6-2.6 627) Medical Photographer ID - SANIA MBLOOD GAS, [id number] 03:44:00 Test Item Value Reference Range Interpretation [...] (test code = 1819) 40.0 % CALCIUM, [id number] 03:20:00 Test Item Value Reference Range Interpretation Comments CALCIUM IONIZED (BEAKER) (test 1.05 mmol/L 1.12-1.27 L code = 698) PH, BLOOD (BEAKER) (test code = 7.36 1810) OXYGEN SATURATION, [id number] 03:16:00 Test Item Value Reference Range Interpretation Comments O2 SATURATION (MEASURED) (BEAKER) 55.9 % (test code = 1455) RAD, CHEST, 1 VIEW, NON [id number] 02:29:00Reason for exam:->s/p ACBShould this be performed at the bedside?->YesFINAL REPORT CLINICAL INDICATION: Postop Comparison: 12/29/2019 The cardiomediastinal contours are stable. The lung volumes remain low. Central pulmonary vascular congestion and bilateral parenchymal opacities are unchanged. There is no pneumothorax. Support lines are stable. Signed: Evie Alvares MDReport Verified Date/Time: 12/30/2019 02:29:11 POCT-GLUCOSE [id number] 02:26:00 Test Item Value Reference Range Interpretation Comments POC-GLUCOSE METER 227 mg/dL 70-110 H : TESTED A T [facility] 6720 (BEAKER) (test code = [facility] [place], 1538) 43790: Medical Photographer/Techni bushra ID = [id number] for YULIA AMYARIEL ALLA LACTIC ACID, [id number] 01:10:00 Test Item Value Reference Range Interpretation Comments LACTATE BLOOD ARTERIAL (2) 3.9 mmol/L 0.5-2.2 H (BEAKER) (test code = 2874) Medical Photographer ID - SANIA MBLOOD GAS, [id number] 01:04:00 Test Item Value Reference Range Interpretation [...] (test code = 1819) 40.0 % GLUCOSE-STAT [id number] 01:04:00 Test Item Value Reference Range Interpretation Comments GLUCOSE RANDOM (BEAKER) (test code 226 mg/dL 70-110 H = 652) HGB/HCT (H&H) - STAT [id number] 01:04:00 Test Item Value Reference Range Interpretation Comments HEMOGLOBIN (BEAKER) (test code = 8.2 g/dL 13.0-16.8 L 410) HEMATOCRIT (BEAKER) (test code = 24.0 % 40.0-50.0 L 411) SODIUM NA-STAT [id number] 01:03:00 Test Item Value Reference Range Interpretation Comments SODIUM (BEAKER) (test code = 381) 136 meq/L 136-145 POTASSIUM-STAT [id number] 01:03:00 Test Item Value Reference Range Interpretation Comments POTASSIUM (BEAKER) (test code = 4.5 meq/L 3.6-5.5 379) POCT-GLUCOSE [id number] 00:20:00 Test Item Value Reference Range Interpretation Comments POC-GLUCOSE METER 228 mg/dL 70-110 H : TESTED A T [facility] 6720 ([facility]) (test code = [facility], 1538) 49737: Medical Photographer/Techni bushra ID = [id number] for DE CKER, ALLA LACTIC ACID, [id number] 22:13:00 Test Item Value Reference Range Interpretation Comments LACTATE BLOOD 4.5 mmol/L 0.5-2.2 HH Specimen sligh tly ARTERIAL (2) (BEAKER) hemoly zed (test code = 2874) Medical Photographer ID - BSPOCT-GLUCOSE [id number] 22:07:00 Test Item Value Reference Range Interpretation Comments POC-GLUCOSE METER 237 mg/dL 70-110 H : TESTED A T [facility] 6720 (BEAKER) (test code = [facility], 1538) 38952: Medical Photographer/Techni bushra ID = [id number] for DE CKER, ALLA POCT-GLUCOSE [id number] 22:06:00 Test Item Value Reference Range Interpretation Comments POC-GLUCOSE METER 235 mg/dL 70-110 H : TESTED A T [facility] 6720 (BEAKER) (test code = [facility], 1538) 49881: Medical Photographer/Techni bushra ID = [id number] for DE CKER, ALLA LACTIC ACID, [id number] 19:00:00 Test Item Value Reference Range Interpretation Comments LACTATE BLOOD ARTERIAL (2) 4.2 mmol/L 0.5-2.2 HH (BEAKER) (test code = 2874) Medical Photographer ID - BSBASIC METABOLIC [id number] 18:58:00 Test Item Value Reference Range Interpretation [...] S NOT APPLICABLE FOR DIALYSIS PATIEN TS. Medical Photographer ID - [id number] 18:48:00 Test Item Value Reference Range Interpretation Comments MAGNESIUM (BEAKER) (test code = 2.1 mg/dL 1.6-2.6 627) Medical Photographer ID - BSBLOOD GAS, [id number] 18:33:00 Test Item Value Reference Range Interpretation [...] (test code = 1819) 40.0 % CALCIUM, [id number] 18:33:00 Test Item Value Reference Range Interpretation [...] 0-0 (BEAKER) (test code = 413) POCT-GLUCOSE [id number] 18:21:00 Test Item Value Reference Range Interpretation Comments POC-GLUCOSE METER 209 mg/dL 70-110 H : [facility] (BEAKER) (test code = [facility] [place], 1538) 29673: Medical Photographer/Techni bushra ID = [id number] for DEVAUGHN JAVIER PLATELET AGGREGATION: FUNCTION [id number] 18:20:00 Test Item Value Reference Range Interpretation Comments [id number] Freddy Sharp M.D. (BEAKER) (test code = [...] may be falsely low with platelet counts<75,000/cu mm.Medical Photographer ID- [id number] AGGREGATION: FUNCTION SCREEN 2019-12-29 18:16:00 Test Item Value Reference Range Interpretation Comments [id number] Freddy Sharp M.D. (BEAKER) (test code = [...] may be falsely low with platelet counts<75,000/cu mm.Medical Photographer ID- 6000POCT-GLUCOSE [id number] 18:12:00 Test Item Value Reference Range Interpretation Comments POC-GLUCOSE METER 210 mg/dL 70-110 H : TESTED A T [facility] 6720 (BEAKER) (test code = [facility] [place], 1538) 48594: Medical Photographer/Techni bushra ID = [id number] for DEVAUGHN JAVIER SODIUM NA-STAT [id number] 16:40:00 Test Item Value Reference Range Interpretation Comments SODIUM (BEAKER) (test code = 381) 136 meq/L 136-145 POTASSIUM-STAT [id number] 16:40:00 Test Item Value Reference Range Interpretation Comments POTASSIUM (BEAKER) (test code = 4.0 meq/L 3.6-5.5 379) BLOOD GAS, [id number] 16:40:00 Test Item Value Reference Range Interpretation [...] (test code = 1819) 40.0 % GLUCOSE-STAT [id number] 16:40:00 Test Item Value Reference Range Interpretation Comments GLUCOSE RANDOM (BEAKER) (test code 217 mg/dL 70-110 H = 652) HGB/HCT (H&H) - STAT [id number] 16:40:00 Test Item Value Reference Range Interpretation Comments HEMOGLOBIN (BEAKER) (test code = 9.4 g/dL 13.0-16.8 L 410) HEMATOCRIT (BEAKER) (test code = 28.0 % 40.0-50.0 L 411) HEMOGLOBIN [id number] 16:12:00 Test Item Value Reference Range Interpretation [...] CONCENTRATION Adequate (CELLAVISION)(BEAKER) (test code = 3438) Medical Photographer ID - Ga comments: Slide comments:POCT-GLUCOSE METER 2019-12-29 15:23:00 Test Item Value Reference Range Interpretation Comments POC-GLUCOSE METER 203 mg/dL 70-110 H : TESTED A T [facility] 6720 (BEAKER) (test code = [facility] [place], 1538) 08377: Medical Photographer/Techni bushra ID = [id number] for DEVAUGHN JAVIER BLOOD GAS, [id number] 15:16:00 Test Item Value Reference Range Interpretation [...] (test code = 1819) 40.0 % GLUCOSE-STAT [id number] 15:16:00 Test Item Value Reference Range Interpretation Comments GLUCOSE RANDOM (BEAKER) (test code 199 mg/dL 70-110 H = 652) HGB/HCT (H&H) - STAT [id number] 15:16:00 Test Item Value Reference Range Interpretation Comments HEMOGLOBIN (BEAKER) (test code = 9.7 g/dL 13.0-16.8 L 410) HEMATOCRIT (BEAKER) (test code = 29.0 % 40.0-50.0 L 411) SODIUM NA-STAT [id number] 15:14:00 Test Item Value Reference Range Interpretation Comments SODIUM (BEAKER) (test code = 381) 138 meq/L 136-145 POTASSIUM-STAT [id number] 15:14:00 Test Item Value Reference Range Interpretation Comments POTASSIUM (BEAKER) (test code = 4.0 meq/L 3.6-5.5 379) CBC W/PLT COUNT & AUTO [id number] 15:13:00 Test Item Value Reference Range Interpretation [...] PERCENT (BEAKER) (test code = 2801) LIPID [id number] 14:51:00 Test Item Value Reference Range Interpretation [...] Borderline 130-159 High 160-189 Very High >=190 Medical Photographer ID - NTPSpecimenslightly lipemicPOCT-GLUCOSE [id number] 14:23:00 Test Item Value Reference Range Interpretation Comments POC-GLUCOSE METER 152 mg/dL 70-110 H : TESTED A T [facility] 6720 (BEAKER) (test code = [facility] [place], 1538) 60568: Medical Photographer/Techni bushra ID = [id number] for Farhana Carlos [id number] 14:21:00 Test Item Value Reference Range Interpretation Comments PHOSPHORUS (BEAKER) (test code = 4.4 mg/dL 2.3-4.7 604) Medical Photographer ID - [id number] 14:21:00 Test Item Value Reference Range Interpretation Comments MAGNESIUM (BEAKER) (test code = 2.3 mg/dL 1.6-2.6 627) Medical Photographer ID - NTPCOMPREHENSIVE METABOLIC [id number] 14:21:00 Test Item Value Reference Range Interpretation [...] S NOT APPLICABLE FOR DIALYSIS PATIEN TS. Medical Photographer ID - NTPSpecimen slightly lipemicTHROMBOELASTOGRAPH (TEG)2019-12-29 14:20:00 [...] % 0.0-5.0 code = 1414) LACTIC ACID, [id number] 14:12:00 Test Item Value Reference Range Interpretation Comments LACTATE BLOOD ARTERIAL (2) 2.8 mmol/L 0.5-2.2 H (BEAKER) (test code = 2874) Medical Photographer ID - [id number] 14:08:00 Test Item Value Reference Range Interpretation Comments FIBRINOGEN LEVEL (BEAKER) (test 243 mg/dl 225-434 code = 658) 6 hours after starting heparin infusion and as indicated per sliding scale [id number] 14:08:00 Test Item Value Reference Range Interpretation [...] is 2.5-3.5 for patients wiht mechanical heart valves.6 hours after starting heparin infusion and as indicated per sliding scale6 hours after starting heparin infusion and as indicated per sliding [id number] 14:08:00 Test Item Value Reference Range Interpretation Comments PARTIAL THROMBOPLASTIN TIME 26.4 seconds 22.5-36.0 (BEAKER) (test code = 760) PROTHROMBIN [id number] 14:07:00 Test Item Value Reference Range Interpretation [...] is 2.5-3.5 for patients wiht mechanical heart valves.RAD, CHEST, 1 VIEW, NON [id number] 13:58:00Reason for exam:->s/p ACB, intubatedShould this be [...] contours. Additional findings: None. Signed: Rosa M Barlow Verified Date/Time: 12/29/2019 13:58:16 Reading Location: [facility] Radiology Reading Room CBC W/PLT COUNT & AUTO [id number] 13:56:00 Test Item Value Reference Range Interpretation [...] (BEAKER) (test code = 2801) BLOOD GAS, [id number] 13:21:00 Test Item Value Reference Range Interpretation [...] code = 1819) 50.0 % OXYGEN SATURATION, [id number] 13:21:00 Test Item Value Reference Range Interpretation Comments O2 SATURATION (MEASURED) (BEAKER) 74.3 % (test code = 1455) [id number] 12:27:00 Test Item Value Reference Range Interpretation Comments ACTIVATED CLOTTING TIME 98 sec : 74 -137 seconds, (BEAKER) (test code = Kevin ne: TESTED AT 441) [facility] [address] [facility], [address]: Medical Photographer/Techni bushra ID = [id number] for ZARAGOZA Y, HARISH [id number] 12:27:00 Test Item Value Reference Range Interpretation Comments ACTIVATED CLOTTING TIME 516 sec : 74 -137 seconds, (BEAKER) (test code = Baseli ne: TESTED AT 441) [address], [address]: Medical Photographer/Techni bushra ID = [id number] for ZARAGOZA Y, HARISH [id number] 12:27:00 Test Item Value Reference Range Interpretation Comments ACTIVATED CLOTTING TIME 483 sec : 74 -137 seconds, (BEAKER) (test code = Baseli ne: TESTED AT 441) [address], [address]: Medical Photographer/Techni bushra ID = [id number] for ZARAGOZA Y, HARISH [id number] 12:27:00 Test Item Value Reference Range Interpretation Comments ACTIVATED CLOTTING TIME 643 sec : 74 -137 seconds, (BEAKER) (test code = Baseli ne: TESTED AT 441) [address], [address]: Medical Photographer/Techni bushra ID = [id number] for ZARAGOZA Y, HARISH [id number] 12:27:00 Test Item Value Reference Range Interpretation Comments ACTIVATED CLOTTING TIME 103 sec : 74 -137 seconds, (BEAKER) (test code = Baseli ne: TESTED AT 441) [address], [address]: Medical Photographer/Techni bushra ID = [id number] for ZARAGOZA Y, HARISH BLOOD GAS, [id number] 12:08:00 Test Item Value Reference Range Interpretation [...] (test code = 1819) 100.0 % GLUCOSE-STAT [id number] 12:08:00 Test Item Value Reference Range Interpretation Comments GLUCOSE RANDOM (BEAKER) (test code 203 mg/dL 70-110 H = 652) HGB/HCT (H&H) - STAT [id number] 12:08:00 Test Item Value Reference Range Interpretation [...] H (test code = 1413) SODIUM NA-STAT [id number] 12:07:00 Test Item Value Reference Range Interpretation Comments SODIUM (BEAKER) (test code = 381) 135 meq/L 136-145 L POTASSIUM-STAT [id number] 12:07:00 Test Item Value Reference Range Interpretation Comments POTASSIUM (BEAKER) (test code = 4.0 meq/L 3.6-5.5 379) CALCIUM, [id number] 12:07:00 Test Item Value Reference Range Interpretation Comments CALCIUM IONIZED (BEAKER) (test 1.17 mmol/L 1.12-1.27 code = 698) PH, BLOOD (BEAKER) (test code = 7.33 1810) PROTHROMBIN [id number] 11:39:00 Test Item Value Reference Range Interpretation [...] is 2.5-3.5 for patients wiht mechanical heart valves.[id number] 11:39:00 Test Item Value Reference Range Interpretation Comments PARTIAL THROMBOPLASTIN TIME 25.9 seconds 22.5-36.0 (BEAKER) (test code = 760) [id number] 11:39:00 Test Item Value Reference Range Interpretation Comments FIBRINOGEN LEVEL (BEAKER) (test 202 mg/dl 225-434 L code = 658) CALCIUM, [id number] 11:33:00 Test Item Value Reference Range Interpretation Comments CALCIUM IONIZED (BEAKER) (test 1.15 mmol/L 1.12-1.27 code = 698) PH, BLOOD (BEAKER) (test code = 7.33 1810) BLOOD GAS, [id number] 11:33:00 Test Item Value Reference Range Interpretation [...] (test code = 1819) 100.0 % GLUCOSE-STAT [id number] 11:33:00 Test Item Value Reference Range Interpretation Comments GLUCOSE RANDOM (BEAKER) (test code 210 mg/dL 70-110 H = 652) HGB/HCT (H&H) - STAT [id number] 11:33:00 Test Item Value Reference Range Interpretation Comments HEMOGLOBIN (BEAKER) (test code = 7.8 g/dL 13.0-16.8 L 410) HEMATOCRIT (BEAKER) (test code = 23.0 % 40.0-50.0 L 411) SODIUM NA-STAT [id number] 11:31:00 Test Item Value Reference Range Interpretation Comments SODIUM (BEAKER) (test code = 381) 135 meq/L 136-145 L POTASSIUM-STAT [id number] 11:31:00 Test Item Value Reference Range Interpretation Comments POTASSIUM (BEAKER) (test code = 4.2 meq/L 3.6-5.5 379) PLATELET [id number] 11:29:00 Test Item Value Reference Range Interpretation Comments PLATELET COUNT (BEAKER) (test 200 K/CU MM 150-450 code = 756) Medical Photographer ID - [id number] GAS, [id number] 11:08:00 Test Item Value Reference Range Interpretation [...] code = 1819) 100.0 % SODIUM NA-STAT [id number] 11:08:00 Test Item Value Reference Range Interpretation Comments SODIUM (BEAKER) (test code = 381) 134 meq/L 136-145 L GLUCOSE-STAT [id number] 11:08:00 Test Item Value Reference Range Interpretation Comments GLUCOSE RANDOM (BEAKER) (test code 222 mg/dL 70-110 H = 652) HGB/HCT (H&H) - STAT [id number] 11:08:00 Test Item Value Reference Range Interpretation Comments HEMOGLOBIN (BEAKER) (test code = 7.9 g/dL 13.0-16.8 L 410) HEMATOCRIT (BEAKER) (test code = 23.0 % 40.0-50.0 L 411) CALCIUM, [id number] 11:08:00 Test Item Value Reference Range Interpretation Comments CALCIUM IONIZED (BEAKER) (test 0.98 mmol/L 1.12-1.27 L code = 698) PH, BLOOD (BEAKER) (test code = 7.34 1810) POTASSIUM-STAT [id number] 11:07:00 Test Item Value Reference Range Interpretation Comments POTASSIUM (BEAKER) (test code = 4.0 meq/L 3.6-5.5 379) HEMOGLOBIN [id number] 11:05:00 Test Item Value Reference Range Interpretation Comments HEMOGLOBIN A1C (BEAKER) (test code = 7.5 % 4.3-6.1 H 368) POTASSIUM-STAT [id number] 10:26:00 Test Item Value Reference Range Interpretation Comments POTASSIUM (BEAKER) (test code = 4.7 meq/L 3.6-5.5 379) BLOOD GAS, [id number] 10:26:00 Test Item Value Reference Range Interpretation [...] code = 1819) 70.0 % SODIUM NA-STAT [id number] 10:26:00 Test Item Value Reference Range Interpretation Comments SODIUM (BEAKER) (test code = 381) 133 meq/L 136-145 L GLUCOSE-STAT [id number] 10:26:00 Test Item Value Reference Range Interpretation Comments GLUCOSE RANDOM (BEAKER) (test code 229 mg/dL 70-110 H = 652) HGB/HCT (H&H) - STAT [id number] 10:26:00 Test Item Value Reference Range Interpretation Comments HEMOGLOBIN (BEAKER) (test code = 8.2 g/dL 13.0-16.8 L 410) HEMATOCRIT (BEAKER) (test code = 24.0 % 40.0-50.0 L 411) POTASSIUM-STAT [id number] 10:01:00 Test Item Value Reference Range Interpretation Comments POTASSIUM (BEAKER) (test code = 3.9 meq/L 3.6-5.5 379) BLOOD GAS, [id number] 10:01:00 Test Item Value Reference Range Interpretation [...] code = 1819) 80.0 % SODIUM NA-STAT [id number] 10:01:00 Test Item Value Reference Range Interpretation Comments SODIUM (BEAKER) (test code = 381) 134 meq/L 136-145 L GLUCOSE-STAT [id number] 10:01:00 Test Item Value Reference Range Interpretation Comments GLUCOSE RANDOM (BEAKER) (test code 210 mg/dL 70-110 H = 652) HGB/HCT (H&H) - STAT [id number] 10:01:00 Test Item Value Reference Range Interpretation Comments HEMOGLOBIN (BEAKER) (test code = 8.2 g/dL 13.0-16.8 L 410) HEMATOCRIT (BEAKER) (test code = 24.0 % 40.0-50.0 L 411) CALCIUM, [id number] 08:20:00 Test Item Value Reference Range Interpretation Comments CALCIUM IONIZED (BEAKER) (test 1.12 mmol/L 1.12-1.27 code = 698) PH, BLOOD (BEAKER) (test code = 7.36 1810) BLOOD GAS, [id number] 08:19:00 Test Item Value Reference Range Interpretation [...] (test code = 1819) 100.0 % GLUCOSE-STAT [id number] 08:19:00 Test Item Value Reference Range Interpretation Comments GLUCOSE RANDOM (BEAKER) (test code 200 mg/dL 70-110 H = 652) HGB/HCT (H&H) - STAT [id number] 08:19:00 Test Item Value Reference Range Interpretation Comments HEMOGLOBIN (BEAKER) (test code = 12.9 g/dL 13.0-16.8 L 410) HEMATOCRIT (BEAKER) (test code = 38.0 % 40.0-50.0 L 411) SODIUM NA-STAT [id number] 08:18:00 Test Item Value Reference Range Interpretation Comments SODIUM (BEAKER) (test code = 381) 138 meq/L 136-145 POTASSIUM-STAT [id number] 08:18:00 Test Item Value Reference Range Interpretation Comments POTASSIUM (BEAKER) (test code = 3.5 meq/L 3.6-5.5 L 379) RAD, CHEST, 1 VIEW, NON [id number] 06:14:00Reason for exam:->pre op screenShould this be performed at the bedside?->YesFINAL REPORT CLINICAL INDICATION: Preoperative evaluation, surgery unspecified C omparison: 12/28/2019 The examination is limited by low lung volumes, patient body habitus and lordotic positioning. The cardiomediastinal contours are stable and grossly unremarkable. There is no focalconsolidation, pneumothorax, large pleural effusion or evidence of overt pulmonary edema. There is no acute bony abnormality. Signed: Evie Alvares MDReport Verified Date/Time: 12/29/2019 06:14:22 (HEMOGRAM ONLY)2019-12-29 05:55:00 Test Item Value Reference [...] = 413) RAD, CHEST, 1 VIEW, NON [id number] 03:04:00Reason for exam:->SOBShould this be performed at the bedside?->YesFINAL REPORT History: Shortness of breath. Comparison: None. Findings: 2 frontal images of the chest is submitted. The cardiomediastinal contours are unremarkable. There is no focal consolidation, pneumothorax, large pleural effusion or evidence of overt pulmonary edema. There is no acute bony abnormality. Impression: No acute abnormality. Signed: Evie Alvares MDReport Verified Date/Time: 12/29/2019 03:04:51 -[id number] 23:45:00 Test Item Value Reference Range Interpretation Comments ACTIVATED CLOTTING TIME 76 sec : 74 -137 seconds, (BEAKER) (test code = Baseli ne: TESTED AT 441) [facility] [address] [facility], [address]: Medical Photographer/Techni bushra ID = [id number] for Kam Person SARS-COV2/RT-PCR ([facility])2019-12-28 20:30:00 Test Item Value Reference Range Interpretation Comments SARS-COV2/RT-PCR (test Not Detected Not Detected, Negative code = 3997805) SARS-COV-2 PERFORMING LAB [facility] (test code = 3630589) Negative results do not preclude SARS-CoV-2 infection [...] of the Act.Fact Sheet for Healthcare Pro viders:https://www.[employer]/Documents/Xpert%20Xpress%20SARS%20CoV-2/Fact%20Sh eets/302-3802%40CAQT-IBR-3%20HEALTHCARE%20PROVIDERS%20FACT%20SHEET.pdfFact Sheet for Healthcare Patients:https://www.[employer]/Documents/Xpert%20Xpress%20SARS%20CoV-2/Fact%20Sheets/302-3801%20SARS-COV -2%20PATIENT%20FACT%20SHEET.pdfPerforming Laboratory:[facility], [place] [address]IORXGHAI [id number] 19:48:00 Test Item Value Reference Range Interpretation [...] failure, acidosis, acute neurological disease, and persistent tachyarrhythmia.Medical Photographer ID - [id number] 19:42:00 Test Item Value Reference Range Interpretation Comments MAGNESIUM (BEAKER) 1.8 mg/dL 1.6-2.6 Specimen slightly (test code = 627) hemolyzed Medical Photographer ID - BSBASIC METABOLIC [id number] 19:42:00 Test Item Value Reference Range Interpretation [...] S NOT APPLICABLE FOR DIALYSIS PATIEN TS. Medical Photographer ID - BSLIPID [id number] 19:42:00 Test Item Value Reference Range Interpretation Comments TRIGLYCERIDES (BEAKER) 357 mg/dL Speci men slightly (test code = 540) hemolyzed CHOLESTEROL (BEAKER) 211 mg/dL Specime n slightly (test code = 631) hemolyzed HDL CHOLESTEROL (BEAKER) 37 mg/dL (test code = 976) LDL CHOLESTEROL 103 mg/dL CALCULATED (BEAKER) (test code = 633) Triglyceride Reference Range: Low Risk <150 Borderline 150-199 High Risk 200- 499 Very High Risk >=500Cholesterol Reference Range: Low Risk <200 Borderline 200-239 High Risk >240HDL Cholesterol Reference Range: Low Risk >=60 High Risk <40LDL Cholesterol Reference Range: Optimal <100 Near Optimal 100-129 Borderline 130-159 High 160-189 Very High >=190 Medical Photographer ID - [id number] 19:41:00 Test Item Value Reference Range Interpretation [...] is 2.5-3.5 for patients wiht mechanical heart valves.Prior to initiating heparinPrior to initiating [id number] 19:41:00 Test Item Value Reference Range Interpretation [...] WBC 0-0 (BEAKER) (test code = 413) [id number] 22:00:00 Test Item Value Reference Range Interpretation Comments GLUBED (test code = GLUBED) 238 mg/dL 60-125 H - XR KNEE 1 OR 2 V [id number] 11:25:00 Patient Name: AGUEDA FORMAN Unit No: [id number] EXAMS: CPT CODE: [id number] XR KNEE 1 OR 2 [place] [address] LEFT KNEE 2 VIEWS PORTABLE COMMENT: The patient is status post joint replacement which is articulating normally. at 1125 Reported and signed by: Igor Vallejo MD CC: Beverly Escobar MD Technologist: ARMANDO PORRAS. RT(R) Transcribed D/ (9865) t.SDR.JCL [facility] NAME: AGUEDA FORMAN [address] [facility] PHYS: MAURO - Beverly Escobar : 1955 AGE: 63 SEX: M [place] [address] LOC: Y.319 A PHONE #: [phone] EXAM DATE: 07/28/2019 STATUS: ADM IN FAX#: [phone] RAD #: D/C DT PAGE 1 Signed Report Patient Name: AGUEDA FORMAN Unit No: [id number] EXAMS: CPT CODE: [id number] XR KNEE 1 OR 2 V LT [address]71 <Continued> Orig Print D/T: S: 07/29/2019 (8744) [facility] NAME: AGUEDA FORMAN [address] [facility] PHYS: YANN.Jesus Manuel Beverly Escobar : 1955 AGE: 63 SEX: M [place] [address] LOC: Y.319A PHONE #: [phone] EXAM DATE: 07/28/2019 STATUS: ADM IN FAX #: [phone] RAD #: D/C DT PAGE 2 Signed [id number] 08:39:00 Test Item Value Reference Range Interpretation Comments GLUBED (test code = GLUBED) 248 mg/dL 60-125 H BASIC METABOLIC [id number] 06:33:00 Test Item Value Reference Range Interpretation [...] RATE (test code = GFR) mL/mi n/1.73 [id number] Range:Healthy Adults >90 mL/min/1.73 m2 For Chronic Kidney Disease: Stage II Mild Decrease i n GFR 60-90 Stage III Moderate Decrea se in GFR 30-59 St age IV Severe Decre ase in GFR 15-29 St age V Kidney Failur e <15 CREATININE (test code 1.23 mg/dL 0.55-1.30 N = CREAT) CALCIUM (test code = 7.6 mg/dL 8.2-10.1 L CA) HGB [id number] 05:49:00 Test Item Value Reference Range Interpretation Comments HEMOGLOBIN (test code = HGB) 11.8 g/dL 12-16 L HEMATOCRIT (test code = HCT) 35.8 % 37-47 L [id number] 05:26:00 Test Item Value Reference Range Interpretation Comments GLUBED (test code = GLUBED) 200 mg/dL 60-125 H [id number] 20:07:00 Test Item Value Reference Range Interpretation Comments GLUBED (test code = GLUBED) 259 mg/dL 60-125 H [id number] 07:39:00 Test Item Value Reference Range Interpretation [...] GBA1c resultsregardle ss of the method used. HG BA1c results from patientswi th HbSS, HbCC, and HbSc must be interpreted wit h cautiongiven th e pathological pr ocesses, including anemi a,increased red cell turnov er, transfusion req uirements, thatadversely i mpact HGBA1c as a marker of long-term glycemiccontrol . Alternative for ms of testing such as fructosaminesho uld be considered for these patients.DONE A T: [facility] [address] [address] [address] [place], [place] [address] GLYCOSYLATED HEMOGLOBIN (HA1C)2019-07-12 21:32:00 Test Item Value Reference Range Interpretation Comments GLYCOSYLATED 6.8 % 4.8-5.9 H Any condition t hat shortens HEMOGLOBIN (HA1C) erythocyte survival or (test code = GLYHGB) decreas esmean erythrocyte age (e.g., moises very from acute blood los s,hemolytic anemia) will fa lsely lower HGBA1c resultsr egardless of the method used . HGBA1c results from nilay naomibonnie HbSS, HbCC, and HbSc must be interpreted with cautiongiven th e pathological pr ocesses, including anemi a,increased red cell turnov er, transfusion req uirements, thatadversely i mpact HGBA1c as a marker of long-term glycemiccontrol . Alternative for ms of testing such as fructosaminesho uld be considered for these patients. PROTHROMBIN [id number] 20:30:00 Test Item Value Reference Range Interpretation Comments PROTHROMBIN TIME 11.5 secs 10.1-12.5 N PATIENT (test code = PTP) INTERNATIONAL NORMAL 1.03 <2.0 RECOMME NDED THERAPEUTIC RATIO (test code = RANGE FOR ORAL INR) ANTICOAGULANTTR EATMENT: CONDITION INRPr ophylaxis of venous throm bosis in 2.0 - 3.0 high- risk medical or surg ical patientsTreatme nt of venous thrombos is 2.0 - 3.0Prevention o f embolism 2.0 - 3.0Prevention o f recurrent embol ism, or 3.0 - 4.5 patie nts with mechanical pros thetic intravascular v cardenas SPECIMEN COMMENT: PATIENT ALSO ON PLAVIXIS PATIENT ON ANTICOAGULANTS ? YLIST ANTICOAGULANT/ANTI PLT MEDICATION : AspirinHas Lab been notified if Patient is on Heparin Drip? NOTHROMBOPLASTIN TIME [id number] 20:30:00 Test Item Value Reference Range Interpretation Comments PTT ACTIVATED (test code = APTT) 32.9 secs 24.9-37.0 N SPECIMEN COMMENT: PATIENT ALSO ON PLAVIXIS PATIENT ON ANTICOAGULANTS ? YLIST ANTICOAGULANT/ANTI PLT MEDICATION : AspirinHas Lab been notified if Patient is on Heparin Drip? NOCOMPREHENSIVE METABOLIC [id number] 20:25:00 Test Item Value Reference Range Interpretation [...] RATE (test code = GFR) mL/mi n/1.73 [id number] Range:Healthy Adults >90 mL/min/1.73 m2 For Chronic Kidney Disease: Stage II Mild Decrease i n GFR 60-90 Stage III Moderate Decrea se in GFR 30-59 St age IV Severe Decre ase in GFR 15-29 S tage V Kidney Failur e <15 CREATININE (test code 1.11 mg/dL 0.55-1.30 [...] TOTAL (test code = ALKP) CBC W/AUTO [id number] 17:54:00 Test Item Value Reference Range Interpretation [...] - XR KNEE 1 OR 2 V [id number] 12:44:00 Patient Name: AGUEDA FORMAN Unit No: [id number] EXAMS: CPT CODE: [id number] XR KNEE 1 OR 2 [place] [address]62 RIGHT KNEE 2 VIEWS PORTABLE COMMENT: The patient is status post joint replacement which is articulating normally. at 3074 Reported and signed by: Igor Vallejo MD CC: Beverly Escobar MD Technologist: DAVION PEREZ (RT.R) Transcribed D/ (2170) tELSY [facility] NAME: AGUEDA FORMAN [address] [facility] PHYS: PATSHARONSunny Beverly Escobar : 1955 AGE: 63 SEX: M [place] [address] LOC: Y.520 A PHONE #: [phone] EXAM DATE: 01/28/2019 STATUS: DIS IN FAX #: [phone] RAD #: D/C DT 01/29/2019 PAGE 1 Signed Report Patient Name: AGUEDA FORMAN Unit No: [id number] EXAMS: CPT CODE: [id number] XR KNEE 1 OR 2 V RT 16294 <Continued> Orig Print D/T: S: 01/31/2019 (4906) [facility] NAME: AGUEDA FORMAN [address] [facility] PHYS: YANNSunny Beverly Escobar : 1955 AGE: 63 SEX: M [place], [place] [address] ACCT NO: [id number] LOC: Y.520 A PHONE #: [phone] EXAM DATE: 01/28/2019 STATUS: DIS IN FAX #: [phone] RAD #: D/C DT 01/29/2019 PAGE 2 Signed ReportBASIC METABOLIC [id number] 07:38:00 Test Item Value Reference Range Interpretation [...] RATE (test code = GFR) mL/mi n/1.73 [id number] Range:Healthy Adults >90 mL/min/1.73 m2 For Chronic Kidney Disease: Stage II Mild Decrease i n GFR 60-90 Stage III Moderate Decrea se in GFR 30-59 St age IV Severe Decre ase in GFR 15-29 S tage V Kidney Failur e <15 CREATININE (test code 1.35 mg/dL 0.55-1.30 H = CREAT) CALCIUM (test code = 7.8 mg/dL 8.2-10.1 L CA) HGB [id number] 06:32:00 Test Item Value Reference Range Interpretation Comments HEMOGLOBIN (test code = HGB) 12.2 g/dL 12-16 N HEMATOCRIT (test code = HCT) 37.1 % 37-47 N [id number] 05:24:00 Test Item Value Reference Range Interpretation Comments GLUBED (test code = GLUBED) 149 mg/dL 60-125 H [id number] 20:47:00 Test Item Value Reference Range Interpretation Comments GLUBED (test code = GLUBED) 161 mg/dL 60-125 H [id number] 12:02:00 Test Item Value Reference Range Interpretation [...] GBA1c resultsregardle ss of the method used. HG BA1c results from patientswi th HbSS, HbCC, and HbSc must be interpreted wit h cautiongiven th e pathological pr ocesses, including anemi a,increased red cell turnov er, transfusion req uirements, thatadversely i mpact HGBA1c as a marker of long-term glycemiccontrol . Alternative for ms of testing such as fructosaminesho uld be considered for these patients.DONE A T: [facility] [address] [facility], [place], [place] [address] GLYCOSYLATED HEMOGLOBIN (HA1C)2019-01-17 13:49:00 Test Item Value [...] be considered for these patients. COMPREHENSIVE METABOLIC [id number] 12:39:00 Test Item Value Reference Range Interpretation [...] RATE (test code = GFR) mL/mi n/1.73 u8Jlqrpseev Range:Healthy Adults >90 mL/min/1.73 m2 For Chronic Kidney Disease: Stage II Mild Decrease i n GFR 60-90 Stage III Moderate Decrea se in GFR 30-59 St age IV Severe Decre ase in GFR 15-29 St age V Kidney Failur e <15 CREATININE (test code 1.25 mg/dL 0.55-1.30 [...] N TOTAL (test code = ALKP) PROTHROMBIN [id number] 12:33:00 Test Item Value Reference Range Interpretation Comments PROTHROMBIN TIME 11.4 secs 10.1-12.5 N PATIENT (test code = PTP) INTERNATIONAL NORMAL 1.01 <2.0 RECOMME NDED THERAPEUTIC RATIO (test code = RANGE FOR ORAL INR) ANTICOAGULANTTR EATMENT: CONDITION INRPr ophylaxis of venous throm bosis in 2.0 - 3.0 high- risk medical or surg ical patientsTreatme nt of venous thrombos is 2.0 - 3.0Prevention o f embolism 2.0 - 3.0Prevention o f recurrent embol ism, or 3.0 - 4.5 patie nts with mechanical pros thetic intravascular v cardenas IS PATIENT ON ANTICOAGULANTS ? YLIST ANTICOAGULANT/ANTI PLT MEDICATION : Plavix (Anti-PLT)Has Lab been notified if Patient is on Heparin Drip? NOIf Yes, order CBC, OCCULT BLOOD, PT every other day NTHROMBOPLASTIN TIME [id number] 12:33:00 Test Item Value Reference Range Interpretation Comments PTT ACTIVATED (test code = APTT) 28.4 secs 24.9-37.0 N IS PATIENT ON ANTICOAGULANTS ? YLIST ANTICOAGULANT/ANTI PLT MEDICATION : Plavix (Anti-PLT)Has Lab been notified if Patient is on Heparin Drip? NOIf Yes, order CBC, OCCULT BLOOD, PT every other day NCBC W/AUTO [id number] 12:29:00 Test Item Value Reference Range Interpretation [...] % 0-0 N code = NRBC) URINALYSIS [id number] 12:27:00 Test Item Value Reference Range Interpretation [...] NITRITE DIPSTICK (test code NEGATIVE NEG = EIRCA) UA LEUKOCYTE ESTERASE DIPSTICK NEGATIVE NEGATIVE (test code = LEUU) UA WBC (test code = WBCU) <5 /HPF 0-2 UA RBC (test code = RBCU) 0-2 /HPF 0-2 UA EPITHELIAL CELLS (test code FEW /HPF 0-2 = EPIU) UA BACTERIA (test code = BACU) FEW /HPF NONE - XR FLUORO [id number] 10:43:00 Patient Name: AGUEDA FORMAN Unit No: [id number] EXAMS: CPT CODE: [id number] XR FLUORO NDL 46615 FLUOROSCOPICALLY GUIDED right prosthetic knee joint ASPIRATION COMMENT: After informed consent wasobtained a 22-gauge needle is inserted into right prosthetic knee joint under fluoroscopic control using sterile technique. 10 mL of fluid was aspirated. This is sent to the lab for analysis. The patient tolerated the procedure well. 0.5 minutes of fluoroscopy time was used on this exam. at 1043 Reported and signed by: Pb Clemente MD CC:Ricardo Leonard Technologist: Vera Wilks, RT.(R) Transcribed D/ (5066) t.GVG [facility] NAME: AGUEDA FORMAN [address] [facility] PHYS: RAJINDER CasasytiaRicardoallison Merchant Faby : 1955 AGE: 62 SEX: M [place], [place] [address] LOC: [employer] PHONE #: [phone] EXAM DATE: 01/08/2018 STATUS: DEP CLI FAX #: [phone] RAD #: D/C DT PAGE 1 Signed Report Patient Name: AGUEDA FORMAN Unit No: [id number] EXAMS: CPT CODE: [id number] XR FLUORO NDL 38332 <Continued> Orig Print D/T: S: 01/11/2018 (4801) [facility] NAME: AGUEDA FORMAN [address] [facility] PHYS: Ricardo Patel : 1955 AGE: 62 SEX: M [place], [place] [address] LOC: [employer] PHONE #: [phone] EXAM DATE: 01/08/2018 STATUS: DEP [place] #: [phone] RAD #: D/C DT PAGE 2 Signed Report
[2022-12-22 17:52] LABS: Absolute Lymphocytes (CBC) 1.6 K/uL (0.7-4.9); Hematocrit 45.6 % (39.6-49.0); Lymphocytes % 19.7 % (15.3-44.8); MCV 90.3 fL (80-100); MPV 6.9 fL (7.6-11.3); RBC Red Blood Cell Count 5.05 M/uL (4.33-5.43)
--- NOTE | 2022-12-22 17:55 | RAD REPORT ---
EXAM DESCRIPTION: CT - Head Brain Wo Cont - 12/22/2022 5:46 pm CLINICAL HISTORY: Generalized weakness Headache, drowsiness COMPARISON: Head Brain Wo Cont dated 04/22/2019; SINUS W O CONTRAST dated 04/16/2012 TECHNIQUE: All CT scans are performed using dose optimization technique as appropriate and may inclu de automated exposure control or mA/KV adjustment according to patient size. FINDINGS: No intracranial hemorrhage, hydrocephalus or extra-axial fluid collection.No areas of brai n edema or evidence of midline shift. The paranasal sinuses and mastoids are clear. The calvarium is intact. IMPRESSION: No acute intracranial abnormality.
--- NOTE | 2022-12-22 17:57 | RAD REPORT ---
EXAM DESCRIPTION: RAD - Chest Single View - 12/22/2022 5:45 pm CLINICAL HISTORY: weakness Chest pain. COMPARISON: Chest Pa And Lat (2 Views) dated 03/15/2021; Chest Single View dated 08/11/2020; Chest Pa An d Lat (2 Views) dated 02/14/2020; Chest Single View dated 12/26/2019 FINDINGS: Portable technique limits examination quality. Mild interstitial pulmonary edema. The heart is enlarged with sternotomy wires present. No displaced fractures. IMPRESSION: Mild CHF.
[2022-12-22 17:58] LABS: Albumin 3.3 g/dL (3.4-5.0); Bilirubin Direct 0.3 mg/dL (0-0.2); Bilirubin Indirect, Calculated 0.3 mg/dL (0.2-0.8); Bilirubin Total 0.6 mg/dL (0.2-1.0); Magnesium 1.8 mg/dL (1.6-2.4); Potassium 3.9 mEq/L (3.5-5.1); Troponin High Sensitivity 6.9 pg/mL (<58.9)
--- NOTE | 2022-12-22 19:31 | ER ---
Nurse's Notes [facility] Name: Kumar Forman Age: 67 yrs Sex: Male : 1955 Arrival Date: 12/22/2022 Time: 16:40 Bed 5 Private MD: Diagnosis: Hyperglycemia, unspecified;Muscle weakness (generalized) Presentation: 12/22 17:08 Chief complaint: EMS states: Toned out for nausea and general weakness, started at 1300 jl7 after working outside and hasn't improved. Pt reports persistent ZARAGOZA. Coronavirus screen: At this time, the client does not indicate any symptoms associated with coronavirus-19. Ebola Screen: No symptoms or risks identified at this time. Initial Sepsis Screen: Does the patient meet any 2 criteria? No. Patient's initial sepsis screen is negative. Does the patient have a suspected source of infection? No. Patient's initial sepsis screen is negative. Risk Assessment: Do you want to hurt yourself or someone else? Patient reports no desire to harm self or others. Onset of symptoms was December 22, 2022 at 13:00. 17:08 Method Of Arrival: EMS: [facility] jl7 17:08 Acuity: STEF 3 jl7 Triage Assessment: 17:07 General: Appears in no apparent distress. uncomfortable, Behavior is calm, cooperative, jl7 appropriate for age. Pain: Complains of pain in ZARAGOZA. Neuro: Level of Consciousness is awake, alert, obeys commands, Oriented to person, place, time, situation. Cardiovascular: Patient's skin is warm and dry. Respiratory: Airway is patent Respiratory effort is even, unlabored, Respiratory pattern is regular, symmetrical. GI: Abdomen is non-distended, Reports nausea. Derm: Skin is pink, warm \T\ dry. Historical: - Allergies: 17:09 AZO Standard; jl7 17:09 Demerol; jl7 17:09 Iodine; jl7 17:09 PENICILLINS; jl7 - Home Meds: 17:09 etodolac 500 mg Oral tablet every 12 hours [Active]; metoprolol tartrate 37.5 mg Oral jl7 tab 1 tab once daily [Active]; solifenacin 10 mg oral tablet daily [Active]; gabapentin 600 mg Oral tab 1 tab 3 times per day [Active]; fenofibrate 160 mg Oral tab 1 tab once daily [Active]; atorvastatin 40 mg Oral tab 1 tab once daily [Active]; Novolog Mix 70-30 U-100 Insulin subcutaneous [Active]; aspirin 81 mg Oral TbEC 1 tab once daily [Active]; Myrbetriq 50 mg Oral Tb24 1 tab once daily [Active]; zegrid [Active]; - PMHx: 17:09 BPH; Cataracts; Diabetes - NIDDM; GERD; Myocardial infarction; prostate sx x 3; Ulcers; jl7 - PSHx: 17:13 knee; jl7 - Immunization history:: Adult Immunizations unknown. - Social history:: Smoking status: Patient denies any tobacco usage or history of. Screenin:00 [facility] ED Fall Risk Assessment (Adult) History of falling in the last 3 months, jl7 including since admission No falls in past 3 months (0 pts) Confusion or Disorientation No (0 pts) Intoxicated or Sedated No (0 pts) Impaired Gait No (0 pts) Mobility Assist Device Used No (0 pt) Altered Elimination No (0 pt) Score/Fall Risk Level 0 - 2 = Low Risk Oriented to surroundings, Maintained a safe environment. Abuse screen: Denies threats or abuse. Denies injuries from another. Nutritional screening: No deficits noted. Tuberculosis screening: No symptoms or risk factors identified. Assessment: 18:00 Reassessment: Patient appears in no apparent distress at this time. No changes from jl7 previously documented assessment. Patient and/or family updated on plan of care and expected duration. Pain level reassessed. Patient is alert, oriented x 3, equal unlabored respirations, skin warm/dry/pink. 19:57 Reassessment: Patient appears in no apparent distress at this time. Patient and/or jb4 family updated on plan of care and expected duration. Pain level reassessed. Patient is alert, oriented x 3, equal unlabored respirations, skin warm/dry/pink. Denies questions or concerns. Vital Signs: 17:08 BP 132 / 82; Pulse 92; Resp 17; Temp 97.5; Pulse Ox 98% ; Weight 131.54 kg; Height 5 7 ft. 7 in. ; Pain 0/10; 19:08 BP 130 / 79; Pulse 77; Resp 19; Pulse Ox 95% ; jl7 17:08 Body Mass Index 45.42 (131.54 kg, 170.18 cm) jl7 17:08 Pain Scale: Adult jl7 ED Course: 17:07 Patient arrived in ED. jl7 17:09 Triage completed. jl7 17:11 Frank Machado DO is Attending Physician. ms3 17:14 Arm band placed on right wrist. jl7 17:15 Patient has correct armband on for positive identification. Placed in gown. Bed in low jl7 position. Call light in reach. Side rails up X 1. Client placed on continuous cardiac and pulse oximetry monitoring. NIBP monitoring applied. 17:35 Initial lab(s) drawn, by me, sent to lab. EKG done, by ED staff, reviewed by Frank Machado DO. Maintain EMS IV. Dressing intact. Good blood return noted. Site clean \T\ dry. Gauge \T\ site: 20 right AC. 17:47 XRAY Chest (1 view) In Process Unspecified. EDMS 17:47 CT Head Brain wo Cont In Process Unspecified. EDMS 18:20 Doris Hernandez, RN is Primary Nurse. jl7 19:38 Primary Nurse role handed off by Doris Hernandez, LYRIC jl7 19:57 No provider procedures requiring assistance completed. IV discontinued, intact, jb4 bleeding controlled, No redness/swelling at site. Pressure dressing applied. Administered Medications: No medications were administered Medication: 18:00 VIS not applicable for this client. jl7 Outcome: 19:30 Discharge ordered by MD. ms3 19:57 Discharged to home ambulatory, with family. jb4 19:57 Condition: stable 19:57 Discharge instructions given to patient, family, Instructed on discharge instructions, follow up and referral plans. Demonstrated understanding of instructions, follow-up care. 19:58 Patient left the ED. jb4 Signatures: Dispatcher [employer] EDMS Ton Centeno RN RN jb4 Leal, Jahala, RN RN jl7 Sims, Marcus, DO DO ms3 Corrections: (The following items were deleted from the chart) 17:14 17:09 PSHx: knee sx payal; abiel7 jlBobby 17:14 17:09 PSHx: CABG; abiel7 jlBobby 17:14 17:09 PSHx: Cholecystectomy; rick Bobby
--- NOTE | 2022-12-22 19:31 | EDPHYS ---
Physician Documentation [facility] Name: Kumar Forman Age: 67 yrs Sex: Male : 1955 Arrival Date: 12/22/2022 Time: 16:40 Bed 5 Private MD: ED Physician Frank Machado HPI: 12/22 20:32 This 67 yrs old Male presents to ER via EMS with complaints of Nausea, Headache, ms3 General Weakness. 20:32 67-year-old male with past medical history of BPH, cataracts, diabetes, GERD, ms3 myocardial infarction, hypertension, coronary artery disease presents via [facility] for generalized weakness, nausea that occurred when standing. Patient states he has had some mild chest pain that he rates at 3/10. Patient denies alleviating or inciting factors. Historical: - Allergies: 17:09 AZO Standard; jl7 17:09 Demerol; jl7 17:09 Iodine; jl7 17:09 PENICILLINS; jl7 - Home Meds: 17:09 etodolac 500 mg Oral tablet every 12 hours [Active]; metoprolol tartrate 37.5 mg Oral jl7 tab 1 tab once daily [Active]; solifenacin 10 mg oral tablet daily [Active]; gabapentin 600 mg Oral tab 1 tab 3 times per day [Active]; fenofibrate 160 mg Oral tab 1 tab once daily [Active]; atorvastatin 40 mg Oral tab 1 tab once daily [Active]; Novolog Mix 70-30 U-100 Insulin subcutaneous [Active]; aspirin 81 mg Oral TbEC 1 tab once daily [Active]; Myrbetriq 50 mg Oral Tb24 1 tab once daily [Active]; zegrid [Active]; - PMHx: 17:09 BPH; Cataracts; Diabetes - NIDDM; GERD; Myocardial infarction; prostate sx x 3; Ulcers; jl7 - PSHx: 17:13 knee; jl7 - Immunization history:: Adult Immunizations unknown. - Social history:: Smoking status: Patient denies any tobacco usage or history of. ROS: 20:32 Constitutional: Negative for fever, and chills. Neck: Negative for injury, pain, and ms3 swelling. 20:32 Respiratory: Negative for shortness of breath, cough, wheezing, and pleuritic chest pain, Abdomen/GI: Negative for abdominal pain, nausea, vomiting, diarrhea, and constipation, MS/Extremity: Negative for injury and deformity, Skin: Negative for injury, rash, and discoloration. 20:32 Cardiovascular: Positive for chest pain. 20:32 Neuro: Positive for generalized weakness. 20:32 All other systems are negative. Exam: 20:32 Constitutional: This is a well developed, well nourished patient who is awake, alert, ms3 and in no acute distress. Head/Face: Normocephalic, atraumatic. Neck: Trachea midline, no cervical lymphadenopathy. Supple, full range of motion without nuchal rigidity, or vertebral point tenderness. No Meningismus. Chest/axilla: Normal chest wall appearance and motion. Nontender with no deformity. Cardiovascular: Regular rate and rhythm with a normal S1 and S2. No gallops, murmurs, or rubs. Normal PMI, no JVD. No pulse deficits. Respiratory: Lungs have equal breath sounds bilaterally, clear to auscultation and percussion. No rales, rhonchi or wheezes noted. No increased work of breathing, no retractions or nasal flaring. Abdomen/GI: Soft, non-tender, with normal bowel sounds. No distension or tympany. No guarding or rebound. No evidence of tenderness throughout. Skin: Warm, dry with normal turgor. Normal color with no rashes, no lesions, and no evidence of cellulitis. MS/ Extremity: Pulses equal, no cyanosis. Neurovascular intact. Full, normal range of motion. 20:32 ECG was reviewed by the Attending Physician. ms3 Vital Signs: 17:08 BP 132 / 82; Pulse 92; Resp 17; Temp 97.5; Pulse Ox 98% ; Weight 131.54 kg; Height 5 jl7 ft. 7 in. ; Pain 0/10; 19:08 BP 130 / 79; Pulse 77; Resp 19; Pulse Ox 95% ; jl7 17:08 Body Mass Index 45.42 (131.54 kg, 170.18 cm) jl7 17:08 Pain Scale: Adult jl7 MDM: 17:11 Patient medically screened. ms3 20:32 Differential diagnosis: Anemia vs electrolyte abnormality vs ICH vs Hyperglycemia. Data ms3 reviewed: vital signs, nurses notes, lab test result(s), EKG, radiologic studies, and as a result, I will discharge patient. Independent interpretation of the following test(s) in the Emergency Department EKG: See my EKG interpretation above shelter monitor: rate is 72 beats/min, Rhythm is normal sinus rhythm, regular, with no ectopy, Interpretation: normal rate, normal rhythm. Counseling: I had a detailed discussion with the patient and/or guardian regarding: the historical points, exam findings, and any diagnostic results supporting the discharge/admit diagnosis, lab results, radiology results, the need for outpatient follow up, to return to the emergency department if symptoms worsen or persist or if there are any questions or concerns that arise at home. Response to treatment: the patient's symptoms have markedly improved after treatment, and as a result, I will discharge patient. Special discussion: Based on the patient's history, exam, and Dx evaluation, there is no indication for emergent intervention or inpatient Tx. It is understood by the patient/guardian that if the Sx's persist or worsen they need to return immediately for re-evaluation. 12/22 17:15 Order name: Basic Metabolic Panel; Complete Time: 19:12 ms3 12/22 17:15 Order name: CBC with Diff; Complete Time: 19:12 ms3 12/22 17:15 Order name: LFT's; Complete Time: 19:12 ms3 12/22 17:15 Order name: Magnesium; Complete Time: 19:12 ms3 12/22 17:15 Order name: Troponin HS; Complete Time: 19:12 ms3 12/22 17:15 Order name: XRAY Chest (1 view); Complete Time: 19:12 ms3 12/22 17:16 Order name: CT Head Brain wo Cont; Complete Time: 19:12 ms3 12/22 17:15 Order name: EKG; Complete Time: 17:17 ms3 12/22 17:15 Order name: Cardiac monitoring; Complete Time: 18:20 ms3 12/22 17:15 Order name: EKG - Nurse/Tech; Complete Time: 18:20 ms3 12/22 17:15 Order name: IV Saline Lock; Complete Time: 18:20 ms3 12/22 17:15 Order name: Labs collected and sent; Complete Time: 18:20 ms3 12/22 17:15 Order name: O2 Per Protocol; Complete Time: 18:20 ms3 12/22 17:15 Order name: O2 Sat Monitoring; Complete Time: 18:20 ms3 EC:32 Rate is 86 beats/min. Rhythm is regular. QRS [place] is Normal. [place] interval is normal. QRS ms3 interval is normal. QT interval is normal. Clinical impression: NSR w/ Non-specific ST/T Changes. Interpreted by me. Reviewed by me. Administered Medications: No medications were administered Disposition Summary: 12/22/22 19:30 Discharge Ordered Location: Home ms3 Condition: Stable ms3 Diagnosis - Hyperglycemia, unspecified ms3 - Muscle weakness (generalized) ms3 Followup: ms3 - With: Private Physician - When: 2 - 3 days - Reason: Recheck today's complaints Discharge Instructions: - Discharge Summary Sheet ms3 - Hyperglycemia ms3 - Weakness ms3 Forms: - Medication Reconciliation Form ms3 - Thank You Letter ms3 - Antibiotic Education ms3 - Prescription Opioid Use ms3 Signatures: Dispatcher [employer] Doris Awan RN RN jl7 Frank Machado DO DO ms3 Corrections: (The following items were deleted from the chart) 17:14 17:09 PSHx: knee sx payal; jl7 jl7 17:14 17:09 PSHx: CABG; jl7 jl7 17:14 17:09 PSHx: Cholecystectomy; jl7 jl7
[2022-12-22 20:08] VITALS: TEMP 97.5
[2022-12-22 20:09] VITALS: BP 130/79; O2SAT 95
--- NOTE | 2022-12-23 07:47 | EKG ---
Test Date: 2022-12-22 Test Time: 17:27:31 Elastic Attacher Chainstitch: NEIL MEASUREMENT RESULTS: Intervals: Rate: 86 MA: 222 QRSD: 94 QT: 416 QTc: 497 Stephenson: P: 47 MA: 222 QRS: 35 T: 59 INTERPRETIVE STATEMENTS: Sinus rhythm with 1st degree AV block Inferior infarct, age undetermined Anteroseptal infarct, age undetermined Abnormal ECG Compared to ECG 03/15/2021 18:19:58 First degree AV block now present Sinus tachycardia no longer present Myocardial infarct finding still present Electronically Signed On 12-23-22 07:45:39 CDT by Donnell Harris
== END 2022-12-22 19:58 | disposition home or self-care (01) ==
LOC: ER 16:40
DX: R53.1 Weakness (principal); E11.65 Type 2 diabetes mellitus with hyperglycemia; K21.9 Gastro-esophageal reflux disease without esophagitis; I25.2 Old myocardial infarction; Z79.899 Other long term (current) drug therapy
CPT/HCPCS: 36415; 70450; 71045; 80048; 80076; 83735; 84484; 85025; 93005; 99284

== ENCOUNTER 2023-08-07 14:17 | Day surgery (SDC) | payer BC, OTHER ==
[2023-08-06 12:19] LABS: Protime INR 1.15
--- NOTE | 2023-08-06 12:27 | RAD REPORT ---
EXAM DESCRIPTION: RAD - Chest Pa And Lat (2 Views) - 08/06/2023 11:59 am CLINICAL HISTORY: pre operative. History of coronary bypass graft. Diabetes. Shortness of breath COMPARISON: Chest Single View dated 12/22/2022; Chest Pa And Lat (2 Views) dated 03/15/2021; Chest Sing le View dated 08/11/2020; Chest Pa And Lat (2 Views) dated 02/14/2020 TECHNIQUE: PA and lateral views of the chest were obtained. FINDINGS: The lungs are clear. Heart size is normal and central vasculature is within normal limits. Sequelae of CABG. No pleural effusion or pneumothorax seen. No acute bony finding noted. IMPRESSION: No acute cardiopulmonary process.
[2023-08-06 12:29] LABS: Potassium 4.1 mEq/L (3.5-5.1)
[2023-08-07] MEDS ORDERED: NA CHLORIDE 0.9% 500 ML ONE (14:43)
[2023-08-07] MEDS ORDERED: HEPA 1000U/500MLS 2,000 UNIT/1,000 ML BAG IV ONE (14:58)
[2023-08-07] MEDS ORDERED: FENTANYL CITR 100 MCG/2 ML ONE (14:59)
[2023-08-07 15:00] LABS: Absolute Lymphocytes (CBC) 0.8 K/uL (0.7-4.9); Hematocrit 49.7 % (39.6-49.0); Lymphocytes % 6.2 % (15.3-44.8); MCV 86.6 fL (80-100); MPV 7.3 fL (7.6-11.3); Platelets 202 thou/uL (152-406); RBC Red Blood Cell Count 5.73 M/uL (4.33-5.43)
[2023-08-07] MEDS ORDERED: HEPARIN 10,000 UNIT/10 ML VIAL IV ONE ×2 (15:00→15:36)
[2023-08-07] MEDS ORDERED: CLOPIDOGREL 75 MG TABLET ONE (15:00)
[2023-08-07] MEDS ORDERED: TICAGRELOR 90 MG TABLET PO ONE (15:00)
[2023-08-07] MEDS ORDERED: MIDAZOLAM HCL 2 MG/2 ML INJ ONE (15:00)
[2023-08-07] MEDS ORDERED: DIPHENHYDRAMINE 50 MG/ML VIAL ONE (15:01)
[2023-08-07] MEDS ORDERED: LIDOCAINE 1% 20 ML MDV ONE (15:01)
[2023-08-07] MEDS ORDERED: ASPIRIN 325 MG TAB ONE (15:01)
[2023-08-07] MEDS ORDERED: METHYLPREDNISOLONE 125 MG INJ ONE (15:01)
[2023-08-07] MEDS ORDERED: ATROPINE SULF 1 MG/10 ML SYR IV ONE (15:03)
--- NOTE | 2023-08-07 15:31 | EKG ---
Test Date: 2023-08-06 Test Time: 12:28:19 Sommelier: MEASUREMENT RESULTS: Intervals: Rate: 87 MA: 232 QRSD: 100 QT: 406 QTc: 488 Ray: P: 47 MA: 232 QRS: 34 T: 26 INTERPRETIVE STATEMENTS: Sinus rhythm with 1st degree AV block Possible Inferior infarct, age undetermined Anteroseptal infarct, age undetermined Abnormal ECG Compared to ECG 12/22/2022 17:27:31 No significant changes Electronically Signed On 08-07-23 15:27:49 STAFF DEVELOPMENT NURSE by Ean Perkins
[2023-08-07 15:46] LABS: Blood Morphology Comment NOT SEEN (NOT SEEN); Platelet Estimate ADEQ; White Blood Cell Scan OK (OK)
[2023-08-07] MEDS ORDERED: REGADENOSON 0.4 MG/5 ML SYR IV ONE (15:55)
--- NOTE | 2023-08-07 17:26 | OP ---
Date of Procedure: 08/07/2023 Surgeon: JANE HELTON Procedures Performed: 1.Selective coronary angiogram with bypass graft study. 2.Left heart catheterization. 3.FFR of mid RCA negative at 0.84. Indication: Unstable angina with abnormal stress test. Access: Right femoral artery 6-Syrian closed with the StarClose. Complications: None. Bleeding: Less than 20 mL. Anesthesia: Total sedation time was 1 hour. Description Of Procedure: After risks, benefits, and alternatives were explained, patient agreed to procedure and signed informed consent. Patient was brought into the cardiac catheterization laborato ry, prepped and draped in usual sterile fashion. Then I accessed right femoral artery using micropun cture kit, ultrasound guidance, and fluoroscopy, placed 6-Syrian [place] sheath and took a 6-Syrian JL4 catheter into the aortic root, engaged the left main, took standard views, and then exchanged for a 6-Syrian JR4 catheter, engaged the RCA, took standard views, and there were 2 SVG grafts that were occluded and they were engaged and they were occluded and then engaged the GARZA and it was not conne cted to the heart and then the catheter was pushed over the wire into the LV, measured the LVEDP and pullback did not record any gradient. Then I removed the catheter and the sheath. StarClose was use d for closure with good hemostasis. Findings: 1.Left main; large and normal. 2.LAD; proximal segment appears to be normal. 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 3.Left circumflex; moderate-sized vessel, proximal to mid 60% to 70% and mid to distal 60% to 70%. There is an OM branch that comes off, it is about 1 mm vessel with 90% stenosis proximally. 4.RCA; very large and dominant, mid 60% stenosis with negative FFR value of 0.84, which gives collat erals to the LAD and fills all the way back to the area of occlusion. Intervention Details: The patient was given systemic heparin to assure ACT level above 250, took a 6 -Syrian JR4 guide into the aortic root over a J-wire, engaged the RCA and took an FFR wire into the a ortic root and pressures were equalized and then the FFR wire was advanced into the RCA crossing the area of stenosis and did the FFR using Lexiscan and FFR value was 0.84, and pulling the wire back, th ere was no drift and the final angiogram was satisfactory at the end. Catheter was removed and the s noni and StarClose were placed with good hemostasis. Conclusion: 1.Severe LAD stenosis with occluded SVG graft to the LAD. 2.Moderate to severe left circumflex with SVG graft to the OM being occluded. 3.Moderate mid RCA stenosis with very good collaterals to the LAD. 4.LVEDP slightly elevated at 13 mmHg. Plan: Intense medical management with beta-santana and nitrates. If symptoms resolve, no further ac tion is needed. If symptoms continues to happen, we will consider reassessing this in about 6 months , probably putting a stent in the RCA could help the perfusion to the LAD. SR/MODL Voice ID: [id number] Report ID: [id number]
[2023-08-07 18:23] VITALS: TEMP 97.6
[2023-08-07 20:47] VITALS: BP 176/83; O2SAT 96
== END 2023-08-07 20:44 | disposition home or self-care (01) ==
LOC: CCL 14:17
PROVIDERS: ATTEND Internal Medicine
DX: I25.110 Atherosclerotic heart disease of native coronary artery with unstable angina pectoris (principal); I25.700 Atherosclerosis of coronary artery bypass graft(s), unspecified, with unstable angina pectoris; I25.82 Chronic total occlusion of coronary artery; T82.855A Stenosis of coronary artery stent, initial encounter; I44.0 Atrioventricular block, first degree; I10 Essential (primary) hypertension; E78.5 Hyperlipidemia, unspecified; I65.29 Occlusion and stenosis of unspecified carotid artery; E11.9 Type 2 diabetes mellitus without complications; K21.9 Gastro-esophageal reflux disease without esophagitis; N40.0 Benign prostatic hyperplasia without lower urinary tract symptoms; E66.01 Morbid (severe) obesity due to excess calories; Z95.1 Presence of aortocoronary bypass graft; Z87.891 Personal history of nicotine dependence; Z79.85 Long-term (current) use of injectable non-insulin antidiabetic drugs; Z79.899 Other long term (current) drug therapy; Z88.0 Allergy status to penicillin; Z88.8 Allergy status to other drugs, medicaments and biological substances; Z82.49 Family history of ischemic heart disease and other diseases of the circulatory system
CPT/HCPCS: 93005; 85025; 80048; 36415; 85610; 82947; 85730; 71046; 93459; 76937; 93571; C1893; Q9967; J2785; J2001; J1200; J2250; J3010; J7040; C1769; 99152; 99153; J0461; J2930

== ENCOUNTER 2023-09-29 16:17 | Inpatient (IN) | payer BC, OTHER ==
[2023-09-29] MEDS ORDERED: ASPIRIN 81 MG CHEWABLE TABLET ONE (16:29)
[2023-09-29 16:58] LABS: Absolute Lymphocytes (CBC) 1.7 K/uL (0.7-4.9); Hematocrit 45.2 % (39.6-49.0); Lymphocytes % 17.4 % (15.3-44.8); MCV 86.5 fL (80-100); MPV 6.7 fL (7.6-11.3); Platelets 175 thou/uL (152-406); RBC Red Blood Cell Count 5.22 M/uL (4.33-5.43)
--- NOTE | 2023-09-29 17:04 | RAD REPORT ---
EXAM DESCRIPTION: [place] Single View09/29/2023 4:47 pm CLINICAL HISTORY: Chest pain COMPARISON: 2022 FINDINGS: The lungs appear clear of acute infiltrate. The heart is mildly enlarged. Postsurgical changes involve the chest. IMPRESSION: No acute abnormalities displayed
[2023-09-29 17:16] LABS: Magnesium 1.8 mg/dL (1.6-2.4); Potassium 3.7 mEq/L (3.5-5.1); Troponin High Sensitivity 5.8 pg/mL (<58.9)
--- NOTE | 2023-09-29 18:13 | EDPHYS ---
Physician Documentation [facility] Name: Kumar Forman Age: 67 yrs Sex: Male : 1955 Arrival Date: 09/29/2023 Time: 16:17 Bed 20 Private MD: ED Physician Frank Machado HPI: 09/29 16:54 This 67 yrs old Male presents to ER via EMS with complaints of weakness, shortness of kb breath. 16:54 Patient is a 67-year-old male who presents for weakness and shortness of breath that kb started 2 to 3 days ago and got worse today. Reports intermittent chest pain has been ongoing since stent placement on September 16. States he had his stent placed by Dr. Perkins at [place]. States he is scheduled for another stent placement next month. Denies any pain at this time.. Historical: - Allergies: 16:26 PENICILLINS; ap3 16:26 Iodine; ap3 16:26 Demerol; ap3 16:26 AZO Standard; ap3 - PMHx: 16:26 BPH; Cataracts; Diabetes - NIDDM; GERD; Myocardial infarction; prostate sx x 3; Ulcers; ap3 - PSHx: 16:26 knee; cardiac stents 09/2023 (knee); ap3 - Immunization history:: Client reports receiving the 2nd dose of the Covid vaccine. - Social history:: Smoking status: Patient denies any tobacco usage or history of. ROS: 16:53 Constitutional: Negative for fever, chills, and weight loss, kb 16:53 Cardiovascular: Positive for chest pain, 16:53 Respiratory: Positive for shortness of breath, 16:53 Neuro: Positive for weakness, 16:53 All other systems are negative, Exam: 16:53 Constitutional: This is a well developed, well nourished patient who is awake, alert, kb and in no acute distress. Head/Face: Normocephalic, atraumatic. ENT: Moist Mucous membranes Cardiovascular: Regular rate Respiratory: Respirations even and unlabored. No increased work of breathing. Talking in full sentences Abdomen/GI: Soft, non-tender. No distention Skin: Warm, dry with normal turgor. Normal color. MS/ Extremity: Pulses equal, no cyanosis. Neurovascular intact. Full, normal range of motion. Neuro: Awake and alert, GCS 15, oriented to person, place, time, and situation. Moves all extremities. Normal gait. 16:53 ECG was reviewed by the Attending Physician. Vital Signs: 16:24 BP 146 / 79; Pulse 99; Resp 17; Pulse Ox 100% ; Weight 120.66 kg; Height 5 ft. 7 in. ; ap3 Pain 0/10; 16:49 BP 133 / 90; Pulse 97; Resp 18; Pulse Ox 98% on R/A; mb9 18:18 BP 123 / 67; Pulse 97; Resp 18; Pulse Ox 100% on R/A; mb9 16:24 Body Mass Index 41.66 (120.66 kg, 170.18 cm) ap3 16:24 Pain Scale: Adult ap3 MDM: 16:22 Patient medically screened. kb 16:55 Differential diagnosis: abnormal EKG, acute myocardial infarction, coronary artery kb disease chest wall pain, congestive heart failure gastroesophageal reflux disease (GERD). The patient was given aspirin in the Emergency Department. Data reviewed: vital signs, nurses notes. Historians other than the Patient: EMS: [facility]. 17:20 Scoring Tools HEART Score: History: ECG: Age: Risk Factors: Troponin: Total Score = 5. kb Counseling: I had a detailed discussion with the patient and/or guardian regarding the historical points, exam findings, and any diagnostic results supporting the discharge/admit diagnosis, lab results, radiology results, the need for further work-up and treatment in the hospital. 18:11 Consideration of Admission/Observation Patient was admitted/placed on observation. kb Escalation of care including admission/observation considered. Management of patient was discussed with the following: Hospitalist: Dr Avelar accepts pt for admission. 09/29 16:23 Order name: Basic Metabolic Panel; Complete Time: 17:17 kb 09/29 16:23 Order name: CBC with Diff; Complete Time: 17:01 kb 09/29 16:23 Order name: Magnesium; Complete Time: 17:17 kb 09/29 16:23 Order name: NT PRO-BNP; Complete Time: 17:17 kb 09/29 16:23 Order name: Troponin HS; Complete Time: 17:17 kb 09/29 19:18 Order name: Urinalysis w/ reflexes EDMS 09/29 19:19 Order name: CBC with Automated Diff EDMS 09/29 19:19 Order name: CBC with Automated Diff EDMS 09/29 19:19 Order name: Comprehensive Metabolic Panel EDUT 09/29 19:19 Order name: Comprehensive Metabolic Panel EDUT 09/29 19:19 Order name: Magnesium EDUT 09/29 19:19 Order name: Magnesium EDUT 09/29 19:19 Order name: Troponin High Sensitivity EDUT 09/29 19:19 Order name: Troponin High Sensitivity EDUT 09/29 16:23 Order name: XRAY Chest (1 view); Complete Time: 17:08 kb 09/29 16:23 Order name: EKG; Complete Time: 16:23 kb 09/29 19:18 Order name: CONS Physician Consult EDUT 09/29 16:23 Order name: Cardiac monitoring; Complete Time: 16:27 kb 09/29 16:23 Order name: EKG - Nurse/Tech; Complete Time: 16:45 kb 09/29 16:23 Order name: IV Saline Lock; Complete Time: 16:29 kb 09/29 16:23 Order name: Labs collected and sent; Complete Time: 16:45 kb 09/29 16:23 Order name: O2 Per Protocol; Complete Time: 16:27 kb 09/29 16:23 Order name: O2 Sat Monitoring; Complete Time: 16:27 kb EC:53 Rate is 93 beats/min. Rhythm is regular. QRS [place] is Normal. [place] interval is prolonged kb at 244 msec. QRS interval is normal at 94 msec. QT interval is normal at 467 msec. Administered Medications: 16:45 Drug: Aspirin PO Chewable Tablet 324 mg PO once; 81 mg tablets x 4 Route: PO; mb9 18:24 Follow up: Response: No adverse reaction mb9 Disposition: 17:57 I was immediately available on-site in the Emergency Department for consultation in the ms3 care of the patient. Disposition Summary: 09/29/23 18:12 Hospitalization Ordered Notes: Hospitalization Status: Observation kb Provider: Kenna Avelar Condition: Stable kb Problem: new kb Symptoms: are unchanged kb Bed/Room Type: Standard kb Location: [facility] ER HOLD(09/29/23 19:18) rv1 Room Assignment: ERHOLD-(09/29/23 19:18) rv1 Diagnosis - Chest pain, unspecified kb - Weakness kb Forms: - Medication Reconciliation Form kb - SBAR form kb - Leadership Thank You Letter kb Signatures: Dispatcher [employer] Brandy Simon, WARDROBE COORDINATOR-C WARDROBE COORDINATOR-Jarethb Kathya Osborn, LYRIC RN ap3 Frank Machado DO DO ms3 Leila Laird RN RN mb9 Nanette George rv1 Corrections: (The following items were deleted from the chart) 19:18 18:12 Telemetry/MedSurg (observation) kb rv1 19:18 18:12 kb rv1
--- NOTE | 2023-09-29 18:13 | ER ---
Nurse's Notes [facility] Name: Kumar Forman Age: 67 yrs Sex: Male : 1955 Arrival Date: 09/29/2023 Time: 16:17 Bed 20 Private MD: Diagnosis: Chest pain, unspecified;Weakness Presentation: 09/29 16:24 Chief complaint: Patient states: he has been having intermittent chest pain. patient ap3 reports having 4 stents placed on 09/16/2023. patient states his pain is currently a 0/10 on the pain scale. Coronavirus screen: At this time, the client does not indicate any symptoms associated with coronavirus-19. Ebola Screen: No symptoms or risks identified at this time. Initial Sepsis Screen: Does the patient meet any 2 criteria? No. Patient's initial sepsis screen is negative. Does the patient have a suspected source of infection? No. Patient's initial sepsis screen is negative. Risk Assessment: Do you want to hurt yourself or someone else? Patient reports no desire to harm self or others. Onset of symptoms is unknown. 16:24 Method Of Arrival: EMS: [facility] ap3 16:24 Acuity: STEF 2 ap3 16:28 Care prior to arrival: IV initiated. 20 GA, in the left forearm. ap3 Triage Assessment: 16:26 General: Appears in no apparent distress. Behavior is calm, cooperative, appropriate ap3 for age. Pain: Complains of pain in chest Pain radiates to chest Pain currently is 0 out of 10 on a pain scale. at worst was 7 out of 10 on a pain scale. Is intermittent. Neuro: Level of Consciousness is awake, alert, obeys commands, Oriented to person, place, time, situation. Cardiovascular: Patient's skin is warm and dry. Respiratory: Airway is patent Respiratory effort is even, unlabored, Respiratory pattern is regular, symmetrical. Historical: - Allergies: 16:26 PENICILLINS; ap3 16:26 Iodine; ap3 16:26 Demerol; ap3 16:26 AZO Standard; ap3 - PMHx: 16:26 BPH; Cataracts; Diabetes - NIDDM; GERD; Myocardial infarction; prostate sx x 3; Ulcers; ap3 - PSHx: 16:26 knee; cardiac stents 09/2023 (knee); ap3 - Immunization history:: Client reports receiving the 2nd dose of the Covid vaccine. - Social history:: Smoking status: Patient denies any tobacco usage or history of. Screenin:27 Abuse screen: Denies threats or abuse. Nutritional screening: No deficits noted. ap3 Tuberculosis screening: No symptoms or risk factors identified. 16:46 [facility] ED Fall Risk Assessment (Adult) History of falling in the last 3 months, mb9 including since admission No falls in past 3 months (0 pts) Confusion or Disorientation No (0 pts) Intoxicated or Sedated No (0 pts) Impaired Gait No (0 pts) Mobility Assist Device Used No (0 pt) Altered Elimination No (0 pt) Score/Fall Risk Level 0 - 2 = Low Risk Oriented to surroundings, Maintained a safe environment, Educated pt \T\ family on fall prevention, incl call for assistance when getting out of bed. Assessment: 16:48 General: Appears in no apparent distress. Behavior is calm, cooperative. Pain: mb9 Complains of pain in chest Pain does not radiate. Pain currently is 0 out of 10 on a pain scale. Quality of pain is described as throbbing, Pain began suddenly, Is intermittent. Neuro: Schroeder Agitation-Sedation Scale (RASS): 0 - Alert and Calm Level of Consciousness is awake, alert, obeys commands, Oriented to person, place, time, situation, Appropriate for age. Cardiovascular: Reports chest pain, shortness of breath, Heart tones S1 S2 present Patient's skin is warm and dry. Pulses are all present. Respiratory: Airway is patent Respiratory effort is even, unlabored, Respiratory pattern is regular, symmetrical, Breath sounds are clear bilaterally. GI: Abdomen is round distended, Bowel sounds present X 4 quads. Abd is soft and non tender X 4 quads. : No signs and/or symptoms were reported regarding the genitourinary system. EENT: No signs and/or symptoms were reported regarding the EENT system. Derm: Skin is pink, warm \T\ dry. Bruising that is bright red, dark purple, on right arm. Musculoskeletal: Range of motion: intact in all extremities. 17:42 Reassessment: No changes from previously documented assessment. Patient and/or family mb9 updated on plan of care and expected duration. Pain level reassessed. Patient is alert, oriented x 3, equal unlabored respirations, skin warm/dry/pink. Vital Signs: 16:24 BP 146 / 79; Pulse 99; Resp 17; Pulse Ox 100% ; Weight 120.66 kg; Height 5 ft. 7 in. ; ap3 Pain 0/10; 16:49 BP 133 / 90; Pulse 97; Resp 18; Pulse Ox 98% on R/A; mb9 18:18 BP 123 / 67; Pulse 97; Resp 18; Pulse Ox 100% on R/A; mb9 16:24 Body Mass Index 41.66 (120.66 kg, 170.18 cm) ap3 16:24 Pain Scale: Adult ap3 ED Course: 16:22 Patient arrived in ED. kb 16:22 [facility]andy Gunter F[facility]-C [facility] kb 16:22 Frank Machado DO is Attending Physician. kb 16:25 Triage completed. ap3 16:26 Leila Laird RN is Primary Nurse. mb9 16:27 Arm band placed on right wrist. ap3 16:27 Patient has correct armband on for positive identification. Bed in low position. Call ap3 light in reach. Side rails up X2. personnel monitor on. Pulse ox on. NIBP on. 16:28 Maintain EMS IV. Dressing intact. Site clean \T\ dry. Gauge \T\ site: 20g left forearm. ap 3 16:35 EKG done, by ED staff, reviewed by Brandy QUIJANO. mb9 16:45 Basic Metabolic Panel Sent. mb9 16:45 CBC with Diff Sent. mb9 16:45 Magnesium Sent. mb9 16:45 NT PRO-BNP Sent. mb9 16:45 Troponin HS Sent. mb9 16:47 No provider procedures requiring assistance completed. mb9 16:49 XRAY Chest (1 view) In Process Unspecified. EDMS 18:12 Kenna Avelar MD is Hospitalizing Provider. kb 18:36 Patient admitted, IV remains in place. mb9 19:10 Report given to LYRIC CONWAY. mb9 Administered Medications: 16:45 Drug: Aspirin PO Chewable Tablet 324 mg PO once; 81 mg tablets x 4 Route: PO; mb9 18:24 Follow up: Response: No adverse reaction mb9 Medication: 16:47 VIS not applicable for this client. mb9 Outcome: 18:12 Decision to Hospitalize by Provider. kb 20:00 Admitted to ER Hold. Please see [facility] for further documentation. jj7 20:00 Condition: good 09/30 00:15 Patient left the ED. jj7 Signatures: Dispatcher [employer] EDBrandy Mathis, BIOMASS BOILER OPERATOR-Court BIOMASS BOILER OPERATOR-Kathya Aquino RN RN ap3 Daphney Keith RN RN jj7 Leila Laird RN RN mb9 Corrections: (The following items were deleted from the chart) 09/29 18:19 18:19 Reassessment: No changes from previously documented assessment. Patient and/or mb9 family updated on plan of care and expected duration. Pain level reassessed. Patient is alert, oriented x 3, equal unlabored respirations, skin warm/dry/pink. mb9 18:23 16:48 Derm: Skin is pink, warm \T\ dry. mb9 mb9
[2023-09-29] MEDS ORDERED: ONDANSETRON 4 MG/2 ML VIAL IV PRN (19:14)
[2023-09-29] MEDS ORDERED: NITROGLYCERIN 0.4 MG/TAB SL PRN (19:17)
[2023-09-29] MEDS: ATORVASTATIN 40 MG TAB PO SCH (21:00)
[2023-09-29] MEDS: FINASTERIDE 5 MG TAB PO SCH (21:00)
[2023-09-29] MEDS: INSULIN REGULAR (HUMAN) 100 UNIT/ML SQ SCH (21:00)
[2023-09-29] MEDS: PREGABALIN 150 MG CAP PO SCH (21:00)
--- NOTE | 2023-09-29 23:36 | P.HP ---
Certification for Inpatient With expected LOS: >2 Midnights Practitioner: I am a practitioner with admitting privileges, knowledge of patient current condition, hospital course, and medical plan of care. Services: Services provided to patient in accordance with Admission requirements found in Title 42 Section 412.3 of the Code of Federal Regulations Patient History Date of Service: 09/29/23 Reason for admission: Chest pain History of Present Illness: 67-year-old male with a history of hypertension, s/p CABG and multiple cardiac stents, Diabetes type 2, DIVINE noncompliant on CPAP and morbid obesity who presented to the ED with worsening shortness of breath since it began more than 2 weeks ago prior to his stent placements. Patient had 4 stents placed on 09/16 and another PCI scheduled for early next month. He has chest pain that occurs as pressure-like and stabbing across the chest intermittently about 2-5 times per day, nonexertional and relieved on its own. He denied any fever, palpitatio n, PND, orthopnea and leg swelling. Patient presented to the ED because chest pain was associated with worsening shortness of breath today. His vitals on arrival to the ED were within normal. Labs were unremarkable and chest x-ray and EKG without acute findings. Allergies iodine Allergy (Severe, Verified 07/25/21 10:56) Redness, Swelling Penicillins Allergy (Intermediate, Verified 07/25/21 10:56) Anaphylaxis phenazopyridine Adverse Reaction (Severe, Verified 07/25/21 10:56) Anaphylaxis Home Medications: Aspirin [Aspirin EC 81 MG] 1 tab PO DAILY 12/27/19 Finasteride 5 mg PO BEDTIME 12/27/19 Gabapentin 600 mg PO BID 12/27/19 Montelukast Sodium 10 mg PO BEDTIME 12/27/19 Atorvastatin Calcium [Lipitor] 40 mg PO BEDTIME 08/12/20 Dulaglutide [Trulicity] 1.5 mg SQ Q7D 08/12/20 Glimepiride [Amaryl*] 2 mg PO BEDTIME 08/12/20 Metoprolol Tartrate 37.5 mg PO DAILY 08/12/20 Torsemide [Demadex*] 20 mg PO DAILYPRN PRN 08/12/20 Nitroglycerin [Nitrostat*] 0.4 mg SL UD PRN #25 tab 08/13/20 Fenofibrate [Tricor*] 160 mg PO DAILY 07/25/21 Ferrous Fumarate/Vit Bcomp&C [Super B-Complex Caplet] 1 each PO BEDTIME 07/25/21 Insulin Aspart Prot/Insuln Asp [Novolog Mix 70-30 Flexpen] 10 unit SQ BID 07/25/21 Mirabegron [Myrbetriq] 50 mg PO DAILY 07/25/21 Multivitamin 1 each PO BEDTIME 07/25/21 Omeprazole/Sodium Bicarbonate [Zegerid 20 mg Capsule] 1 each PO BEDTIME 07/25/21 Solifenacin [Vesicare*] 5 mg PO DAILY 07/25/21 Codeine/APAP [Tylenol W/Codeine #3 tab] 1 tab PO Q6HP PRN #12 tab 07/30/21 Smz./Tmp. [Bactrim Ds 800 MG/160 MG] 1 tab PO BID #10 tab 07/30/21 - Past Medical/Surgical History Has patient received pneumonia vaccine in the past: No Diabetic: No -: HTN -: Hyperlipidemia -: BPH -: GERD -: [place] -: NIDDM -: Heart stent, 2004 -: Heart stent, 2005 -: Cataract Surgery (Right eye) -: Total Left Knee Replacement -: Cholecystectomy - Family History Mother -: Heart disease, Hypertension Notes: RA, dementia Father -: Cancer Notes: Hodgkin's - Social History Alcohol use: No CD- Drugs: No Caffeine use: Yes Review of Systems 10-point ROS is otherwise unremarkable Physical Examination - Vital Signs Temperature: 97 F Blood Pressure: 133/90 Pulse: 97 Respirations: 18 Pulse Ox (%): 98 - Physical Exam General: Alert, In no apparent distress, Oriented x3 HEENT: Atraumatic, Normocephalic, PERRLA Neck: Supple, JVD not distended Respiratory: Clear to auscultation bilaterally, Normal air movement Cardiovascular: No edema, Regular rate/rhythm, Normal S1 S2 Gastrointestinal: Normal bowel sounds, Soft and benign, Non-distended Musculoskeletal: No swelling, No erythema, No tenderness Integumentary: No rashes Neurological: Normal gait, Normal speech, Normal strength at 5/5 x4 extr - Studies Laboratory Data (last 24 hrs) 09/29/23 09/29/23 16:42 16:42 WBC 9.50 Hgb 15.6 Hct 45.2 Plt Count 175 Sodium 138 Potassium 3.7 BUN 13 Creatinine 0.90 Glucose 211 H Magnesium 1.8 Assessment and Plan - Plan Stable angina Dyspnea CAD with CABG and recent PCI and stents x4 Type 2 diabetes mellitus Hypertension Hyperlipidemia Morbid obesity BPH DIVINE noncompliant with CPAP Plan Admit to telemetry Resume aspirin, Imdur, Brilinta, Metoprolol and statin Sliding scale insulin and blood glucose monitoring Consult cardiology - Advance Directives Does patient have a Living Will: No Does patient have a Durable POA for Healthcare: No
[2023-09-29 23:37] VITALS: BMI 42.9
[2023-09-29 23:54] VITALS: BP 133/90; TEMP 97
[2023-09-30] MEDS ORDERED: HEPARIN 5000 UNIT/ML 1 ML VIAL SQ SCH (01:00)
[2023-09-30] MEDS ORDERED: METOPROLOL XL 25 MG TAB PO SCH (06:00)
[2023-09-30] MEDS ORDERED: ASPIRIN EC 81 MG TAB PO SCH (09:00)
[2023-09-30] MEDS ORDERED: ISOSORBIDE MONO SR 30 MG TAB PO SCH (09:00)
--- NOTE | 2023-10-01 16:12 | EKG ---
Test Date: 2023-09-29 Test Time: 16:36:33 [employer]: MB MEASUREMENT RESULTS: Intervals: Rate: 93 NV: 244 QRSD: 94 QT: 376 QTc: 467 [place]: P: 41 NV: 244 QRS: 59 T: 69 INTERPRETIVE STATEMENTS: Sinus rhythm with 1st degree AV block Septal infarct, age undetermined Abnormal ECG Compared to ECG 08/06/2023 12:28:19 No significant changes Electronically Signed On 10-01-23 16:05:57 ENGAGEMENT LEAD by Ean Perkins
== END 2023-09-30 00:13 | disposition left against medical advice (07) | DRG 303 ==
LOC: ER 16:17 → ERHOLD 19:08
PROVIDERS: ADMIT Internal Medicine; ATTEND Hospitalist
DX: I25.118 Atherosclerotic heart disease of native coronary artery with other forms of angina pectoris (principal); Z68.41 Body mass index [BMI] 40.0-44.9, adult; E66.01 Morbid (severe) obesity due to excess calories; I10 Essential (primary) hypertension; E11.9 Type 2 diabetes mellitus without complications; G47.33 Obstructive sleep apnea (adult) (pediatric); N40.0 Benign prostatic hyperplasia without lower urinary tract symptoms; E78.5 Hyperlipidemia, unspecified; K21.9 Gastro-esophageal reflux disease without esophagitis; I25.2 Old myocardial infarction; Z95.5 Presence of coronary angioplasty implant and graft; Z88.0 Allergy status to penicillin; Z88.5 Allergy status to narcotic agent; Z79.4 Long term (current) use of insulin; Z95.1 Presence of aortocoronary bypass graft; Z88.8 Allergy status to other drugs, medicaments and biological substances; Z79.84 Long term (current) use of oral hypoglycemic drugs; Z90.49 Acquired absence of other specified parts of digestive tract; Z79.82 Long term (current) use of aspirin; Z53.29 Procedure and treatment not carried out because of patient's decision for other reasons; Z99.89 Dependence on other enabling machines and devices; Z91.199 Patient's noncompliance with other medical treatment and regimen due to unspecified reason; Z79.899 Other long term (current) drug therapy; Z96.652 Presence of left artificial knee joint
CPT/HCPCS: 36415; 71045; 80048; 83735; 83880; 84484; 85025; 93005; 99285

== ENCOUNTER 2024-06-10 05:05 | Inpatient (IN) | payer BC ==
[2024-06-10 06:26] LABS: Absolute Lymphocytes (CBC) 0.6 K/uL (0.7-4.9); Absolute Monocytes 0.3 K/uL (0.1-1.3); Absolute Neutrophil 7.5 K/uL (1.8-8.0); Basophils % 0.1 % (0-1.3); Hematocrit 47.3 % (39.6-49.0); Hemoglobin 15.4 g/dL (13.6-17.9); MCH 26.7 pg (27.0-35.0); MCHC 32.5 g/dL (32.0-36.0); Neutrophils % 89.9 % (41.7-73.7); Platelets 206 thou/uL (152-406); RBC Red Blood Cell Count 5.77 M/uL (4.33-5.43); Red Cell Distribution Width 16.7 % (12.1-15.2)
--- NOTE | 2024-06-10 06:26 | ER ---
Nurse's Notes [facility] Name: Kumar Forman Age: 68 yrs Sex: Male : 1955 Arrival Date: 06/10/2024 Time: 05:05 Bed 4 Private MD: Diagnosis: Chest pain, unspecified Presentation: 06/10 05:11 Chief complaint: Patient states: c/o chest pain radiating down L arm since 0330 this al5 morning, was scheduled for heart catheterization at noon today. Coronavirus screen: At this time, the client does not indicate any symptoms associated with coronavirus-19. Ebola Screen: No symptoms or risks identified at this time. Initial Sepsis Screen: Does the patient meet any 2 criteria? HR > 90 bpm. Does the patient have a suspected source of infection? No. Patient's initial sepsis screen is negative. Risk Assessment: Do you want to hurt yourself or someone else? Patient reports no desire to harm self or others. Onset of symptoms was June 10, 2024. 05:11 Method Of Arrival: EMS: [facility] al5 05:11 Acuity: STEF 2 al5 05:11 Care prior to arrival: Medication(s) given: ASA, 81 mg, x 4, Nitroglycerin, 0.4 mg SL x al5 1, IV initiated. 20 GA, in the right forearm, Glucose check: 261. Triage Assessment: 05:15 General: Appears in no apparent distress. uncomfortable, Behavior is calm, cooperative. al5 Pain: Complains of pain in chest Pain radiates to left arm Pain currently is 4 out of 10 on a pain scale. EENT: No signs and/or symptoms were reported regarding the EENT system. Neuro: Level of Consciousness is awake, alert, obeys commands, Oriented to person, place, time, situation. Cardiovascular: Capillary refill < 3 seconds Patient's skin is warm and dry. Rhythm is sinus rhythm Chest pain is described as Pain is 4 out of 10 on a pain scale. radiates to left arm(s). Respiratory: Airway is patent Respiratory effort is even, unlabored, Respiratory pattern is regular, symmetrical. GI: No signs and/or symptoms were reported involving the gastrointestinal system. Abdomen is round non-distended. : No signs and/or symptoms were reported regarding the genitourinary system. Derm: Skin is intact, is healthy with good turgor, Skin is pink, warm \T\ dry. normal. Musculoskeletal: No signs and/or symptoms reported regarding the musculoskeletal system. Historical: - Allergies: 05:13 AZO Standard; al5 05:13 Demerol; al5 05:13 Iodine; al5 05:13 PENICILLINS; al5 - PMHx: 05:13 BPH; Cataracts; Diabetes - NIDDM; Myocardial infarction; GERD; Ulcers; al5 - PSHx: 05:13 Stented artery; bilateral knee surgery; al5 - Immunization history:: Adult Immunizations up to date. - Infectious Disease History:: Denies. - Social history:: Smoking status: unknown. Screenin:18 [facility] ED Fall Risk Assessment (Adult) History of falling in the last 3 months, al5 including since admission No falls in past 3 months (0 pts) Confusion or Disorientation No (0 pts) Intoxicated or Sedated No (0 pts) Impaired Gait No (0 pts) Mobility Assist Device Used No (0 pt) Altered Elimination No (0 pt) Score/Fall Risk Level 0 - 2 = Low Risk Oriented to surroundings, Maintained a safe environment, Hourly rounding (assess needs \T\ fall precautionary measures) done. Abuse screen: Denies threats or abuse. Denies injuries from another. Nutritional screening: No deficits noted. Tuberculosis screening: No symptoms or risk factors identified. Assessment: 05:17 Reassessment: see triage assessment. Pain: Pain began 2 hours ago. Pain: Complains of al5 pain in chest Pain radiates to left arm. 06:15 Reassessment: Patient appears in no apparent distress at this time. No changes from al5 previously documented assessment. Patient and/or family updated on plan of care and expected duration. Pain level reassessed. Patient is alert, oriented x 3, equal unlabored respirations, skin warm/dry/pink. 07:05 Reassessment: Patient is alert, oriented x 3, equal unlabored respirations, skin aa5 warm/dry/pink. Pt sitting up in bed states no complaints at this time. Awaiting complete lab results. Pt given additional warm blankets for comfort and lights dimmed for comfort. . 08:00 Reassessment: Patient is alert, oriented x 3, equal unlabored respirations, skin aa5 warm/dry/pink. 08:19 Reassessment: Called lab to check on troponin results, [employer] [employer] states they had problem aa5 with machine and results will be posted in approximately 2 minutes. . 08:45 Reassessment: Patient is alert, oriented x 3, equal unlabored respirations, skin aa5 warm/dry/pink. Vital Signs: 05:11 BP 177 / 86; Pulse 91; Resp 18; Temp 98.4; Pulse Ox 99% on 2 lpm NC; Weight 117.48 kg; al5 Height 5 ft. 7 in. ; Pain 4/10; 05:55 BP 155 / 74; Pulse 92; Resp 16 S; Pulse Ox 97% on R/A; ha1 06:25 BP 176 / 100; Pulse 86; Resp 17 S; Pulse Ox 96% on R/A; ha1 06:57 BP 183 / 99; Pulse 94; Resp 18; Pulse Ox 99% on R/A; al5 08:00 BP 158 / 74; Pulse 88; Resp 18; Temp 97.5(TE); Pulse Ox 99% on 2 lpm NC; Pain 0/10; aa5 05:11 Body Mass Index 40.56 (117.48 kg, 170.18 cm) al5 05:11 Pain Scale: Adult al5 08:00 Pain Scale: Adult aa5 ED Course: 05:11 Patient arrived in ED. al5 05:11 Davonte Kessler MD is Attending Physician. al5 05:13 Triage completed. al5 05:16 Arm band placed on right wrist. Patient placed in the treatment room, on a stretcher. al5 EKG completed in triage. Results shown to MD. 05:18 Patient has correct armband on for positive identification. Placed in gown. Bed in low al5 position. Call light in reach. Side rails up X2. Provided Education on: plan of care. Client placed on continuous cardiac and pulse oximetry monitoring. NIBP monitoring applied. section cutter on. 05:18 No provider procedures requiring assistance completed. Maintain EMS IV. Dressing al5 intact. Good blood return noted. Site clean \T\ dry. Gauge \T\ site: 20G R forearm. Oxygen administration via nasal cannula \T\ 2L/min. 05:19 Kathya Kearney RN is Primary Nurse. al5 06:25 Andrea Cote is Hospitalizing Provider. rt 08:45 Patient admitted, IV remains in place. aa5 Administered Medications: No medications were administered Medication: 05:18 VIS not applicable for this client. al5 Outcome: 06:25 Decision to Hospitalize by Provider. rt 08:45 Admitted to [facility] accompanied by nurse, with chart, Other Report faxed to admitting aa5 nurse 08:45 Condition: stable 08:45 Instructed on the need for admit, 08:47 Patient left the ED. eb Signatures: Crystal Floers, RN RN aa5 Marga Canseco eb Marcela Srinivasan RN RN ha1 Davonte Kessler MD MD rt Kathya Kearney RN RN al5 Corrections: (The following items were deleted from the chart) 05:14 05:13 PMHx: prostate sx x 3; al5 al5 05:14 05:13 PSHx: knee; al5 al5 05:14 05:13 PSHx: cardiac stents 09/2023; al5 al5
--- NOTE | 2024-06-10 06:26 | EDPHYS ---
Physician Documentation [facility] Name: Kumar Forman Age: 68 yrs Sex: Male : 1955 Arrival Date: 06/10/2024 Time: 05:05 Bed 4 Private MD: ED Physician Davonte Kessler HPI: 06/10 05:28 This 68 yrs old Male presents to ER via EMS with complaints of Chest Pain. rt 05:28 Patient is a significant cardiac history, had a failed outpatient stress test and a rt scheduled to have a cardiac catheterization today performed by Dr. Perkins. Patient states that he woke up with severe substernal chest pain. He took 324 of aspirin prior to arrival and received nitro. Patient states that the symptoms have resolved, he has no pain currently. Reports that the pain did radiate to the left arm as well as having associated shortness of breath, nausea. Denies other acute complaints at this time, symptoms are moderate in severity, no other aggravating or alleviating factors.. Historical: - Allergies: 05:13 AZO Standard; al5 05:13 Demerol; al5 05:13 Iodine; al5 05:13 PENICILLINS; al5 - PMHx: 05:13 BPH; Cataracts; Diabetes - NIDDM; Myocardial infarction; GERD; Ulcers; al5 - PSHx: 05:13 Stented artery; bilateral knee surgery; al5 - Immunization history:: Adult Immunizations up to date. - Infectious Disease History:: Denies. - Social history:: Smoking status: unknown. ROS: 05:28 Constitutional: Negative for fever, chills, and weight loss, Abdomen/GI: Negative for rt abdominal pain, nausea, vomiting, diarrhea, and constipation, MS/Extremity: Negative for injury and deformity, Skin: Negative for injury, rash, and discoloration, 05:28 Cardiovascular: Positive for chest pain, Negative for edema, 05:28 Respiratory: Positive for shortness of breath, Negative for cough, Exam: 05:28 Constitutional: This is a well developed, well nourished patient who is awake, alert, rt and in no acute distress. Head/Face: Normocephalic, atraumatic. Chest/axilla: Normal chest wall appearance and motion. Nontender with no deformity. No lesions are appreciated. Cardiovascular: Regular rate and rhythm with a normal S1 and S2. No gallops, murmurs, or rubs. Normal PMI, no JVD. No pulse deficits. Respiratory: Lungs have equal breath sounds bilaterally, clear to auscultation and percussion. No rales, rhonchi or wheezes noted. No increased work of breathing, no retractions or nasal flaring. Abdomen/GI: Soft, non-tender, with normal bowel sounds. No distension or tympany. No guarding or rebound. No evidence of tenderness throughout. Skin: Warm, dry with normal turgor. Normal color with no rashes, no lesions, and no evidence of cellulitis. MS/ Extremity: Pulses equal, no cyanosis. Neurovascular intact. Full, normal range of motion. Neuro: Awake and alert, GCS 15, oriented to person, place, time, and situation. Cranial nerves II-XII grossly intact. Motor strength 5/5 in all extremities. Sensory grossly intact. Cerebellar exam normal. Normal gait. 05:28 ECG was reviewed by the Attending Physician. Vital Signs: 05:11 BP 177 / 86; Pulse 91; Resp 18; Temp 98.4; Pulse Ox 99% on 2 lpm NC; Weight 117.48 kg; al5 Height 5 ft. 7 in. ; Pain 4/10; 05:55 BP 155 / 74; Pulse 92; Resp 16 S; Pulse Ox 97% on R/A; ha1 06:25 BP 176 / 100; Pulse 86; Resp 17 S; Pulse Ox 96% on R/A; ha1 06:57 BP 183 / 99; Pulse 94; Resp 18; Pulse Ox 99% on R/A; al5 08:00 BP 158 / 74; Pulse 88; Resp 18; Temp 97.5(TE); Pulse Ox 99% on 2 lpm NC; Pain 0/10; aa5 05:11 Body Mass Index 40.56 (117.48 kg, 170.18 cm) al5 05:11 Pain Scale: Adult al5 08:00 Pain Scale: Adult aa5 MDM: 05:12 Medical Screening Exam initiated rt 06:26 Differential diagnosis: acute myocardial infarction, coronary artery disease chest wall rt pain. The patient was not given aspirin in the Emergency Department. Patient reports taking aspirin within the past 24 hours. Data reviewed: vital signs, nurses notes, lab test result(s), EKG. Consideration of Admission/Observation Patient was admitted/placed on observation. Management of patient was discussed with the following: Hospitalist: Agrees to admit. Test considered but Not performed: X-ray: Patient had x-ray yesterday, repeat x-ray not needed. Care significantly affected by the following chronic conditions: CAD. Counseling: I had a detailed discussion with the patient and/or guardian regarding the historical points, exam findings, and any diagnostic results supporting the discharge/admit diagnosis, the need for further work-up and treatment in the hospital. Response to treatment: the patient's symptoms have markedly improved after treatment. 06/10 05:12 Order name: Basic Metabolic Panel rt 06/10 05:12 Order name: CBC with Diff rt 06/10 05:12 Order name: LFT's rt 06/10 05:12 Order name: NT PRO-BNP rt 06/10 05:12 Order name: PT-INR; Complete Time: 06:47 rt 06/10 05:12 Order name: Troponin HS rt 06/10 05:12 Order name: Ptt, Activated; Complete Time: 06:47 rt 06/10 07:10 Order name: T4 Free EDMS 06/10 07:10 Order name: Thyroid Stimulating Hormone EDMS 06/10 07:10 Order name: Urinalysis w/ reflexes EDMS 06/10 07:10 Order name: Basic Metabolic Panel EDMS 06/10 07:10 Order name: Basic Metabolic Panel EDMS 06/10 07:10 Order name: CBC with Automated Diff EDMS 06/10 07:10 Order name: CBC with Automated Diff EDMS 06/10 07:10 Order name: Lipid Profile EDMS 06/10 07:10 Order name: Magnesium EDMS 06/10 07:10 Order name: Magnesium EDMS 06/10 07:10 Order name: Phosphorus EDMS 06/10 07:10 Order name: Phosphorus EDMS 06/10 07:10 Order name: Troponin High Sensitivity EDMS 06/10 07:10 Order name: Troponin High Sensitivity EDMS 06/10 07:10 Order name: Troponin High Sensitivity EDMS 06/10 07:35 Order name: Lipid Profile EDMS 06/10 07:10 Order name: Echo with Doppler EDMS 06/10 05:12 Order name: Cardiac monitoring; Complete Time: 05:19 rt 06/10 05:12 Order name: EKG - Nurse/Tech; Complete Time: 05:19 rt 06/10 05:12 Order name: IV Saline Lock; Complete Time: 05: rt 06/10 05:12 Order name: Labs collected and sent; Complete Time: : rt 06/10 05:12 Order name: O2 Per Protocol; Complete Time: 05: rt 06/10 05:12 Order name: O2 Sat Monitoring; Complete Time: 05:19 rt EC:28 Rate is 91 beats/min. Rhythm is regular, Normal Sinus Rhythm with No ectopy. QRS [place] rt is Normal. RI interval is normal. QRS interval is normal. QT interval is normal. No Q waves. No ST changes noted. Interpreted by me. Administered Medications: No medications were administered Disposition Summary: 06/10/24 06:25 Hospitalization Ordered Notes: Hospitalization Status: Observation rt Provider: Andrea Cote rt Location: Telemetry/MedSurg (observation) rt Condition: Stable rt Problem: new rt Symptoms: have improved rt Bed/Room Type: Standard rt Room Assignment: 218(06/10/24 08:08) Diagnosis - Chest pain, unspecified rt Forms: - Medication Reconciliation Form rt - SBAR form rt - Leadership Thank You Letter rt Signatures: Dispatcher [employer] EDMS Marga Canseco eb Davonte Kessler MD MD rt Kathya Kearney RN RN al5 Corrections: (The following items were deleted from the chart) 05:13 05:13 BASIC METABOLIC PANEL+C.LAB.BRZ ordered. EDMS EDMS 05:13 05:13 CBC+H.LAB.BRZ ordered. EDMS EDMS 05:13 05:13 HEPATIC FUNCTION+C.LAB.BRZ ordered. EDMS EDMS 05:13 05:13 PROBNP+C.LAB.BRZ ordered. EDMS EDMS 05:13 05:13 PROTIME (+INR)+COAG.LAB.BRZ ordered. EDMS EDMS 05:13 05:13 Troponin High Sensitivity+C.LAB.BRZ ordered. EDMS EDMS 05:13 05:13 PTT, ACTIVATED+COAG.LAB.BRZ ordered. EDMS EDMS 05:13 05:13 Chest Single View+RAD.RAD.BRZ ordered. EDMS EDMS 05:14 05:13 PMHx: prostate sx x 3; al5 al5 05:14 05:13 PSHx: knee; al5 al5 05:14 05:13 PSHx: cardiac stents 09/2023; al5 al5 07:34 07:10 Lipid Profile ordered. EDMS EDMS 08:08 06:25 rt eb
[2024-06-10 06:36] LABS: PT Prothrombin Time 12.5 SECONDS (9.4-12.5); PTT, Activated Partial Thromb 31.6 SECONDS (24.3-36.9); Protime INR 1.12
--- NOTE | 2024-06-10 06:44 | P.HP ---
Certification for Inpatient Patient admitted to: Observation With expected LOS: <2 Midnights Patient will require the following post-hospital care: None Practitioner: I am a practitioner with admitting privileges, knowledge of patient current condition, hospital course, and medical plan of care. Services: Services provided to patient in accordance with Admission requirements found in Title 42 Section 412.3 of the Code of Federal Regulations Patient History Date of Service: 06/10/24 Reason for admission: Chest pain r/o ACS History of Present Illness: Kumar Forman is a 68 year old male with Pmhx BPH, Cataracts, Diabetes - NIDDM, Myocardial infarction (stent, 2 vessel CABG), GERD, Ulcers who presented to the ED with chief complaint of substernal chest pain that woke him up last night. He took 325 mg of aspirin prior to coming to the ED and received nitroglycerin in the ED with resolution of chest pain. He reports failing a stress test one week ago and scheduled for a heart cath today with Dr. Perkins. He reports having a total of 10 stents and a bypass of the OM and LAD in 2019. Laboratory evaluation showing troponin 8.0, BNP 390, BUN/creatinine 20/1.36, GFR 57, serum glucose 267 EKG Rate is 91 beats/min. Rhythm is regular, Normal Sinus Rhythm with No ectopy. QRS [place] is Normal. [place] interval is normal. QRS interval is normal. QT interval is normal. No Q waves. No ST changes noted. Initial vitals BP 177 / 86; Pulse 91; Resp 18; Temp 98.4; Pulse Ox 99% on 2 lpm NC Kumar will be admitted to hospitalist service for further evaluation of chest pain, cardiology consulted. Allergies iodine Allergy (Severe, Verified 06/09/24 13:05) Redness, Swelling Penicillins Allergy (Severe, Verified 06/09/24 13:05) Anaphylaxis phenazopyridine Allergy (Severe, Verified 06/09/24 13:05) Anaphylaxis Home Medications: Aspirin [Aspirin EC 81 MG] 1 tab PO DAILY 12/27/19 Finasteride 5 mg PO BEDTIME 12/27/19 Gabapentin 600 mg PO BID 12/27/19 Montelukast Sodium 10 mg PO BEDTIME 12/27/19 Atorvastatin Calcium [Lipitor] 40 mg PO BEDTIME 08/12/20 Dulaglutide [Trulicity] 1.5 mg SQ Q7D 08/12/20 Glimepiride [Amaryl*] 2 mg PO BEDTIME 08/12/20 Metoprolol Tartrate 37.5 mg PO DAILY 08/12/20 Torsemide [Demadex*] 20 mg PO DAILYPRN PRN 08/12/20 Nitroglycerin [Nitrostat*] 0.4 mg SL UD PRN #25 tab 08/13/20 Fenofibrate [Tricor*] 160 mg PO DAILY 07/25/21 Ferrous Fumarate/Vit Bcomp&C [Super B-Complex Caplet] 1 each PO BEDTIME 07/25/21 Insulin Aspart Prot/Insuln Asp [Novolog Mix 70-30 Flexpen] 10 unit SQ BID 07/25/21 Mirabegron [Myrbetriq] 50 mg PO DAILY 07/25/21 Multivitamin 1 each PO BEDTIME 07/25/21 Omeprazole/Sodium Bicarbonate [Zegerid 20 mg Capsule] 1 each PO BEDTIME 07/25/21 Solifenacin [Vesicare*] 5 mg PO DAILY 07/25/21 Codeine/APAP [Tylenol W/Codeine #3 tab] 1 tab PO Q6HP PRN #12 tab 07/30/21 Smz./Tmp. [Bactrim Ds 800 MG/160 MG] 1 tab PO BID #10 tab 07/30/21 - Past Medical/Surgical History Diabetic: No -: HTN -: Hyperlipidemia -: BPH -: GERD -: RI -: NIDDM -: Heart stent, 2004 -: Heart stent, 2005 -: Cataract Surgery (Right eye) -: Total Left Knee Replacement -: Cholecystectomy -: CABG x2 (OM, LAD) 2019 - Family History Mother -: Heart disease, Hypertension Notes: RA, dementia Father -: Cancer Notes: Hodgkin's - Social History Smoking Status: Never smoker Alcohol use: Yes CD- Drugs: No Caffeine use: Yes Review of Systems Cardiovascular: Chest Pain Musculoskeletal: Arm Pain (left arm tingling), Other (left shoulder pain) Physical Examination - Physical Exam General: Alert, In no apparent distress, Oriented x3 HEENT: Atraumatic, Normocephalic, PERRLA Neck: Supple, 2+ carotid pulse no bruit Respiratory: Clear to auscultation bilaterally, Normal air movement Cardiovascular: Normal pulses, Regular rate/rhythm, Normal S1 S2 Capillary refill: <2 Seconds Gastrointestinal: Normal bowel sounds, Soft and benign Musculoskeletal: No clubbing Integumentary: No rashes Neurological: Normal speech, Normal tone - Studies Laboratory Data (last 24 hrs) 06/10/24 06/10/24 05:45 05:45 WBC 8.40 Hgb 15.4 Hct 47.3 Plt Count 206 PT 12.5 INR 1.12 APTT 31.6 Assessment and Plan - Plan Assessment and Plan Chest pain R/O [place] Hx Myocardial infarction (stents and CABG) - EKG: No obvious ST segment changes - troponin , Serial pending - Ordered transthoracic echocardiogram - Consult Cardiology - Heart cath today showing RIVER GUIDE LAD, will re-cath on Thursday - Heart healthy - S/P aspirin 324 mg PO x 1 taken at home, nitroglycerin given in ED - daily baby aspirin and statin -Cardiology recommends weight based lovenox Q12h last dose Thursday, Imdur 30 mg daily titrate to 60 mg - Symptom control with PRN acetaminophen, nitroglycerin, morphine - continuous telemetry - TSH/FreeT4 0.172/0.95, A1C pending -lipid panel (triglycerides 63, Cholesterol 122, LDL 63, HDL 46) Diabetes - NIDDM -Serum glucose 267 -accucheck with SSI ALEIDA -BUN/creatinine 20/1.36, GFR 57 -Gentle IVF BPH Cataracts GERD Ulcers -continue home medications DVT ppx SCD Full code LOS 24 hour OBS Discharge Plan: Home Plan to discharge in: 72 Hours - Advance Directives Does patient have a Living Will: No Does patient have a Durable POA for Healthcare: No
[2024-06-10] MEDS ORDERED: NITROGLYCERIN 0.4 MG/TAB SL PRN (06:59)
[2024-06-10] MEDS ORDERED: ONDANSETRON 4 MG/2 ML VIAL IV PRN (06:59)
[2024-06-10] MEDS ORDERED: ACETAMINOPHEN 500 MG TAB PO PRN (06:59)
[2024-06-10] MEDS: INSULIN REGULAR (HUMAN) 100 UNIT/ML SQ SCH (07:30)
[2024-06-10 07:54] LABS: Thyroid Stimulating Hormone 0.172 uIU/mL (0.358-3.740)
[2024-06-10 08:22] LABS: Albumin 3.2 g/dL (3.4-5.0); Albumin/Globulin Ratio 0.8 (1.1-1.8); Anion Gap 9.2 mEq/L (5.0-15.0); Bilirubin Direct 0.2 mg/dL (0-0.2); Bilirubin Indirect, Calculated 0.3 mg/dL (0.2-0.8); Bilirubin Total 0.5 mg/dL (0.2-1.0); Globulin 3.8 g/dL (2.3-3.5); Potassium 4.2 mEq/L (3.5-5.1)
[2024-06-10] MEDS: TIZANIDINE 4 MG TABLET PO SCH (09:00)
[2024-06-10] MEDS: NA CHLORIDE 0.9% 1,000 ML IV SCH (09:00)
[2024-06-10] MEDS: NA CHLORIDE 0.9% 500 ML ONE (09:09)
[2024-06-10] MEDS ORDERED: HEPARIN 10,000 UNIT/10 ML VIAL IV ONE (09:24)
[2024-06-10] MEDS ORDERED: HEPA 1000U/500MLS 2,000 UNIT/1,000 ML BAG IV ONE (09:24)
[2024-06-10] MEDS ORDERED: VERAPAMIL HCL 10 MG/4 ML VIAL IV ONE (09:24)
[2024-06-10] MEDS ORDERED: LIDOCAINE 1% 20 ML MDV ONE (09:24)
[2024-06-10] MEDS ORDERED: MIDAZOLAM HCL 2 MG/2 ML INJ ONE (09:25)
[2024-06-10] MEDS ORDERED: HEPARIN 5000 UNIT/ML 1 ML VIAL ONE (09:25)
[2024-06-10] MEDS ORDERED: CLOPIDOGREL 75 MG TABLET ONE (09:25)
[2024-06-10] MEDS ORDERED: ATROPINE SULF 1 MG/10 ML SYR IV ONE (09:25)
[2024-06-10] MEDS ORDERED: ASPIRIN 325 MG TAB ONE (09:26)
[2024-06-10] MEDS ORDERED: FENTANYL CITR 100 MCG/2 ML ONE (09:26)
[2024-06-10] MEDS ORDERED: TICAGRELOR 90 MG TABLET PO ONE (09:26)
[2024-06-10] MEDS ORDERED: METHYLPREDNISOLONE 125 MG INJ ONE (09:56)
[2024-06-10] MEDS ORDERED: DIPHENHYDRAMINE 50 MG/ML VIAL ONE (09:57)
[2024-06-10 10:34] LABS: Blood Morphology Comment NOT SEEN (NOT SEEN); Platelet Estimate ADEQ; White Blood Cell Scan OK (OK)
--- NOTE | 2024-06-10 14:59 | ECHO ---
HEIGHT: 5 ft 7 in WEIGHT: 259 lb 0 oz DATE OF STUDY: 06/10/[address]: Natasha Wallace NP 2-DIMENSIONAL: YES M.MODE: YES DOPPLER: YES COLOR FLOW: YES TDS: PORTABLE: YES DEFINITY: BUBBLE STUDY: DIAGNOSIS: CHEST PAIN CARDIAC HISTORY: CATHERIZATION: YES SURGERY: PROSTHETIC VALVE: PACEMAKER: MEASUREMENTS (cm) DIASTOLIC (NORMALS) SYSTOLIC (NORMALS) IVSd 1.0 (0.6-1.2) LA Diam 3.8 (1.9-4.0) LVEF 55-60% LVIDd 5.6 (3.5-5.7) LVIDs 4.1 (2.0-3.5) %FS 27% LVPWd 1.1 (0.6-1.2) Ao Diam 3.4 (2.0-3.7) 2 DIMENSIONAL ASSESSMENT: RIGHT ATRIUM: NORMAL LEFT ATRIUM: NORMAL RIGHT VENTRICLE: NORMAL LEFT VENTRICLE: NORMAL TRICUSPID VALVE: TRACE TRICUSPID REGURGITATION MITRAL VALVE: NORMAL PULMONIC VALVE: NORMAL AORTIC VALVE: NORMAL PERICARDIAL EFFUSION: NONE AORTIC ROOT: NORMAL LEFT VENTRICULAR WALL MOTION: MILD DISTAL DILEEP SEPTAL HYPOKINESIS DOPPLER/COLOR FLOW: SEE BELOW COMMENTS: 1. NORMAL LEFT VENTRICULAR EJECTION FRACTION 55-60% 2. MILD DILEEP-SEPTAL HYPOKINESIS 3. TRACE TRICUSPID REGURGITATION TECHNOLOGIST: ODILON SANDOVAL
[2024-06-10 16:41] VITALS: BMI 40.6
--- NOTE | 2024-06-10 17:28 | CON ---
Date of Consultation: 06/10/2024 Reason For Consultation: Chest pain, rule out acute coronary syndrome. History Of Present Illness: 68-year-old male with very complex coronary artery disease, failed CABG in the past, and multiple PCIs thereafter. History of diabetes, AL, dyslipidemia, and hypertension, presented with typical chest pain, pressure like radiates to the neck, jaw, and left upper extremity and he was doing fine after we opened the RESIDENTIAL DIRECTOR of the LAD back in September up until the past week wher e he presented to my office with symptoms of his stress test which was abnormal showing reversible is chemia in the anterior wall, and patient's pain at 3 o'clock in the morning was very intense, and he presented to the emergency room and he was scheduled to have actually coronary angiogram today as an outpatient basis, but due to the pain episode, he presented to the emergency room. I saw him by britt garay. He was chest pain free. Past Medical History: As outlined above in the HPI. Medications: Refer to reconciliation sheet for detailed list. Allergies: IODINE, PENICILLIN. Family History: No premature coronary artery disease or cancer. Social History: He does not smoke or drink. Does not use any drugs. Review of Systems: All systems were reviewed and they are negative except what was mentioned in the HPI. Physical Examination: Vital Signs: Reviewed. Head and Neck: Pupils are equal, reactive to light. Intact eye movements. No JVD. No cervical lym phadenopathy. Neck is supple. Thyroid is not enlarged. Lungs: Clear to auscultation bilaterally. No rhonchi, wheezing, or crackles. No accessory muscle u se. Heart: Regular rate and rhythm. No extra sounds. Abdomen: Soft, nontender. Bowel sounds positive. No organomegaly. No masses or hernia. No rigidi ty or rebound. Extremities: No edema, clubbing, or cyanosis. Intact pulses. Skin: No rash. No nodule. Neurologic: Alert, awake, oriented x3. No acute focal deficits appreciated. Investigations: Troponins are negative. BUN 20, creatinine 1.36. Hemoglobin is 15.4. Assessment And Recommendations: 1.Unstable angina, very typical symptoms with abnormal stress test. The patient is kept NPO for cor onary angiogram and continue dual antiplatelet therapy, specifically Brilinta and baby aspirin and st art him on Imdur 30 mg daily, titrate over the weekend to reach 60 or 90 mg if he tolerates and furth er recommendation post coronary angiogram. 2.Dyslipidemia. Recommend Lipitor 40 mg q.h.s. 3.Hypertension. Blood pressure is controlled. Continue current management. 4.Borderline elevated NT-proBNP. On echo, ejection fraction is normal and probably mild diastolic d ysfunction. SR/MODL Voice ID: [id number] Report ID: [id number]
[2024-06-10] MEDS: ISOSORBIDE MONO SR 30 MG TAB PO SCH (17:43)
[2024-06-10] MEDS ORDERED: TICAGRELOR 90 MG TABLET PO SCH (20:00)
[2024-06-10] MEDS: TICAGRELOR 90 MG TABLET PO SCH (20:09)
[2024-06-10] MEDS: ATORVASTATIN 40 MG TAB PO SCH (20:09)
[2024-06-10] MEDS: Enoxaparin 120 MG/0.8 ML SYR SQ SCH (20:09)
[2024-06-10] MEDS: PREGABALIN 75 MG CAP PO SCH (20:09)
--- NOTE | 2024-06-11 02:22 | OP ---
Date of Procedure: 06/10/2024 Surgeon: JANE HELTON Procedures Performed: 1.Selective coronary angiogram. 2.Left heart catheterization. 3.Shockwave lithotripsy of entire LAD stent and severe ISR of the mid LAD stent, it was actually 100 %. 4.Balloon angioplasty of severe in-stent restenosis of the mid LAD. We used 2.5 x 20 mm NC balloon. Complications: None. Bleeding: Less than 50 mL. Anesthesia: Total sedation time was 50 minutes. Used fentanyl, Versed. Access: Right radial artery 6-Burmese, closed with TR band. Description Of Procedure: After risks, benefits, alternatives were explained, the patient agreed to procedure and signed informed consent. Patient was brought into cardiac catheterization laboratory, prepped and draped in usual sterile fashion. Then, I accessed right radial artery using pediatric mi cropuncture kit, placed 6-Burmese slender sheath and took 5-Burmese [place] 4 catheter over J-wire into t he aortic root, engaged left main and the right coronary artery, took standard views. Catheter was p ushed over the wire into the LV, measured the LVEDP. Pullback did not record any gradient. Then, re moved the catheter and exchanged for a 6-Burmese EBU3.5 guide, gave systemic heparin to assure ACT lev el above 250, patient is on Brilinta, engaged the left main and took Runthrough wire into the LAD and was able to past 100% stenosis and did shockwave lithotripsy of the distal part of the stent as it d oes not seem to be expanded very well and the stent expanded very well and then did balloon angioplas ty of the entire stent. At the end, JORDAN-3 flow was established, however, it is still with mild hazi ness, the stent size is very small, and the coronary arteries are very small, but responded very well to nitroglycerin. At the end, wire was removed. Final angiogram was satisfactory and removed the g uide and the sheath and placed TR band with good hemostasis. Findings: 1.Left main normal. 2.LAD; proximal stent is patent. Mid LAD stent has diffuse ISR 70% and then the ISR becomes 100%. The artery is occluded 100%, status post successful Shockwave lithotripsy and balloon angioplasty as above. 3.Left circumflex, widely patent mid left circumflex stent. OM1 is jailed, but it is small, jailed by 80% and JORDAN-3 flow. 4.RCA. It is large and dominant. It has mid 40%-60%, PDA has 30% stenosis and gives collaterals to the LAD and the LVEDP was borderline at 40 mmHg. Conclusion: 1.Severe mid LAD in-stent restenosis, it was actually 100% occlusion, but there was no STEMI due to the collaterals from RCA, status post successful shockwave lithotripsy and balloon angioplasty as abo ve. 2.Moderate coronary artery disease elsewhere. Recommendations: Start him on Imdur 30 mg daily and titrate the dose as his blood pressure tolerates to reach 90 mg. Continue aspirin 81 mg daily, Brilinta 90 mg twice a day and high-dose statin and p ut him on Lovenox 1 mg/kg subcu q.12 hours twice a day as there was a thrombus burden in that LAD and plan to repeat coronary angiogram on Thursday and possible putting a stent in that LAD after the throm bus resolution. /ALANL Voice ID: [id number] Report ID: [id number]
[2024-06-11 06:09] LABS: Absolute Lymphocytes (CBC) 0.5 K/uL (0.7-4.9); Absolute Neutrophil 12.5 K/uL (1.8-8.0); Hematocrit 48.5 % (39.6-49.0); Hemoglobin 15.3 g/dL (13.6-17.9); Lymphocytes % 3.8 % (15.3-44.8); MCH 26.2 pg (27.0-35.0); MCHC 31.5 g/dL (32.0-36.0); MPV 7.1 fL (7.6-11.3); Monocytes % 7.4 % (3.3-12.3); Neutrophils % 88.8 % (41.7-73.7); Platelets 221 thou/uL (152-406); RBC Red Blood Cell Count 5.84 M/uL (4.33-5.43); Red Cell Distribution Width 16.6 % (12.1-15.2)
[2024-06-11 06:53] LABS: Anion Gap 8.3 mEq/L (5.0-15.0); Magnesium 2.3 mg/dL (1.6-2.4); Phosphorus 2.5 mg/dL (2.5-4.9); Potassium 4.3 mEq/L (3.5-5.1); Troponin High Sensitivity 14.1 pg/mL (<58.9)
[2024-06-11] MEDS: METOPROLOL TAR 25 MG TAB PO SCH (09:00)
[2024-06-11] MEDS: FINASTERIDE 5 MG TAB PO SCH (09:09)
[2024-06-11] MEDS: TIZANIDINE 4 MG TABLET PO SCH (09:10)
[2024-06-11] MEDS: PREGABALIN 75 MG CAP PO SCH (09:10)
[2024-06-11] MEDS: ASPIRIN EC 81 MG TAB PO SCH (09:10)
--- NOTE | 2024-06-11 12:42 | P.PN ---
Date of Service: 06/11/24 Subjective Reports feeling well this morning, better than yesterday Reports taking Imdur at home, will titrated to [address] Perkins will perform a heart cath on Thursday ROS 10 point ROS as noted above, otherwise negative Physical Exam General: Alert and Oriented x3, NAD HEENT: Atraumatic, Normocephalic, PERRLA Neck: Supple, 2+ carotid pulse no bruit Respiratory: Clear to auscultation bilaterally, symmetrical chest wall movement, on room air Cardiovascular: Normal pulses, RRR, Normal S1 S2 Capillary refill: <2 Seconds Gastrointestinal: Normal bowel sounds, Soft and benign Musculoskeletal: No clubbing Integumentary: No rashes Neurological: Normal speech, Normal tone Vitals Reviewed Problem list Chest pain R/O [place] Hx Myocardial infarction (stents and CABG) Leukocytosis likely 2/2 inflammation s/p heart cath Diabetes - NIDDM ALEIDA BPH Cataracts GERD Ulcers Assessment and Plan Chest pain R/O [place] Hx Myocardial infarction (stents and CABG) Leukocytosis likely 2/2 inflammation s/p heart cath - EKG: No obvious ST segment changes - troponin 8.0/9.3/14.1 - Ordered transthoracic echocardiogram - Consult Cardiology - Heart cath 06/10 showing [employer]CH[employer] LAD, will re-cath on Thursday (06/13) - Heart healthy - S/P aspirin 324 mg PO x 1 taken at home, nitroglycerin given in ED - daily baby aspirin and statin -Cardiology recommends weight based lovenox Q12h last dose Thursday night, Imdur 30 mg daily titrate to 60 mg - Symptom control with PRN acetaminophen, nitroglycerin, morphine - continuous telemetry - TSH/FreeT4 0.172/0.95, A1C remains pending -lipid panel (triglycerides 63, Cholesterol 122, LDL 63, HDL 46) Diabetes - NIDDM -Serum glucose 251 -accucheck with SSI -Semglee 15 units at bedtime ALEIDA -BUN/creatinine 22/1.15, GFR 69 -Gentle IVF BPH Cataracts GERD Ulcers -continue home medications DVT ppx SCD Full code LOS 24 hour OBS Discharge Plan: Home Plan to discharge in: 72 Hours
[2024-06-11] MEDS: HOME MED 1 EA UNK (Ferrous Fumarate/Vit Bcomp&C [Super B-Complex Caplet] 1 EACH Tablet) PO SCH (21:00)
[2024-06-11] MEDS: INSULIN GLARGINE 100 UNIT/ML SQ SCH (21:00)
[2024-06-11] MEDS: PANTOPRAZOLE 40MG TABLET PO SCH (21:18)
[2024-06-11] MEDS: ROPINIROLE HCL 1 MG TAB PO SCH (21:18)
[2024-06-11] MEDS: MORPHINE 2 MG/ML SYR IV PRN (21:40)
[2024-06-12] MEDS: ISOSORBIDE MONO SR 60 MG TAB PO SCH (08:52)
[2024-06-12] MEDS: METOPROLOL TAR 25 MG TAB PO ONE (11:14)
--- NOTE | 2024-06-12 12:27 | P.PN ---
Date of Service: 06/12/24 Subjective Feeling well, reports sleeping well last night no new complaints Dr. Perkins will perform a heart cath on Thursday ROS 10 point ROS as noted above, otherwise negative Physical Exam General: AAO x3, NAD HEENT: Atraumatic, Normocephalic, PERRLA Neck: Supple, 2+ carotid pulse no bruit Respiratory: Clear to auscultation bilaterally, nonlabored breathing, on room air Cardiovascular: Normal pulses, NSR, Normal S1 S2 Capillary refill: <2 Seconds Gastrointestinal: Normal bowel sounds, Soft and benign on palpation, nontender Musculoskeletal: No clubbing Integumentary: No rashes Neurological: Normal speech, Normal tone Vitals Reviewed Problem list Chest pain R/O [place] Hx Myocardial infarction (stents and CABG) Leukocytosis likely 2/2 inflammation s/p heart cath Diabetes - NIDDM ALEIDA BPH Cataracts GERD Ulcers Assessment and Plan Chest pain R/O [place] Hx Myocardial infarction (stents and CABG) Leukocytosis likely 2/2 inflammation s/p heart cath - EKG: No obvious ST segment changes - troponin 8.0/9.3/14.1-trend flat - transthoracic echocardiogram showing EF 55-60%, trace tricuspid regurgitation - Consult Cardiology - Heart cath 06/10 showing CAMPUS RECRUITER LAD, will re-cath on Thursday (06/13) - Heart healthy, NPO at midnight (06/13) - S/P aspirin 324 mg PO x 1 taken at home, nitroglycerin given in ED - daily baby aspirin and statin - Imdur 60 mg daily, lovenox weight based with last dose at 9pm tonight per cardilogy request - Symptom control with PRN acetaminophen, nitroglycerin, morphine - continuous telemetry - TSH/FreeT4 0.172/0.95, A1C remains pending - lipid panel (triglycerides 63, Cholesterol 122, LDL 63, HDL 46) Diabetes - NIDDM -PCO glucose 122 -accucheck with SSI -Semglee 15 units at bedtime ALEIDA -06/11 BUN/creatinine 22/1.15, GFR 69 -Gentle IVF BPH Cataracts GERD Ulcers -continue home medications DVT ppx Lovenox weight based, last dose at 9pm prior to heart cath in the morning Full code LOS 24 hour OBS Discharge Plan: Home Plan to discharge in: 72 Hours
[2024-06-12] MEDS: METOPROLOL TAR 25 MG TAB PO SCH (21:03)
[2024-06-12 21:35] VITALS: O2SAT 98
[2024-06-13 06:02] LABS: Absolute Eosinophils 0.1 K/uL (0-0.5); Absolute Lymphocytes (CBC) 1.7 K/uL (0.7-4.9); Absolute Monocytes 0.9 K/uL (0.1-1.3); Absolute Neutrophil 7.1 K/uL (1.8-8.0); Basophils % 0.3 % (0-1.3); Eosinophils % 1.1 % (0-4.4); Lymphocytes % 17.4 % (15.3-44.8); MCH 26.5 pg (27.0-35.0); MCHC 32.5 g/dL (32.0-36.0); MCV 81.4 fL (80-100); MPV 6.7 fL (7.6-11.3); Monocytes % 9.5 % (3.3-12.3); Neutrophils % 71.7 % (41.7-73.7); Nucleated Red Blood Cells % 0.1 % (0-0); Platelets 186 thou/uL (152-406); RBC Red Blood Cell Count 5.66 M/uL (4.33-5.43); Red Cell Distribution Width 16.7 % (12.1-15.2)
[2024-06-13 06:21] LABS: Phosphorus 2.8 mg/dL (2.5-4.9)
--- NOTE | 2024-06-13 12:22 | EKG ---
Test Date: 2024-06-10 Test Time: 05:10:41 Ignition Specialist: [place] MEASUREMENT RESULTS: Intervals: Rate: 91 DC: 214 QRSD: 88 QT: 386 QTc: 474 [place]: P: 44 DC: 214 QRS: 52 T: 58 INTERPRETIVE STATEMENTS: Sinus rhythm with 1st degree AV block Cannot rule out Anteroseptal infarct, age undetermined Abnormal ECG Compared to ECG 09/29/2023 16:36:33 No significant changes Electronically Signed On 06-13-24 12:17:13 PROJECT MANAGEMENT IT SPECIALIST by Otoniel Mathias
--- NOTE | 2024-06-13 13:15 | P.PN ---
Date of Service: 06/13/24 Subjective Feeling well, reports sleeping well last night no new complaints Awaiting coronary angiogram ROS 10 point ROS as noted above, otherwise negative Physical Exam General: AAO x3, NAD HEENT: Atraumatic, Normocephalic, PERRLA Neck: Supple, 2+ carotid pulse no bruit Respiratory: Clear to auscultation bilaterally, nonlabored breathing, on room air Cardiovascular: Normal pulses, NSR, Normal S1 S2 Capillary refill: <2 Seconds Gastrointestinal: Normal bowel sounds, Soft and benign on palpation, nontender Musculoskeletal: No clubbing Integumentary: No rashes Neurological: Normal speech, Normal tone Vitals Reviewed Problem list Chest pain R/O VA Hx Myocardial infarction (stents and CABG) Leukocytosis likely 2/2 inflammation s/p heart cath Diabetes - NIDDM ALEIDA BPH Cataracts GERD Ulcers Assessment and Plan Chest pain R/O VA Hx Myocardial infarction (stents and CABG) Leukocytosis likely 2/2 inflammation s/p heart cath - EKG: No obvious ST segment changes - troponin 8.0/9.3/14.1-trend flat - transthoracic echocardiogram showing EF 55-60%, trace tricuspid regurgitation - Consult Cardiology - 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
[2024-06-13] MEDS: ENOXAPARIN 100 MG/ML SYR SQ SCH (21:35)
[2024-06-14 06:34] LABS: Anion Gap 6.1 mEq/L (5.0-15.0); Potassium 4.1 mEq/L (3.5-5.1)
[2024-06-14 12:46] VITALS: BP 165/76; TEMP 98.1
[2024-06-14] MEDS: ISOSORBIDE MONO SR 60 MG TAB PO SCH (13:53)
--- NOTE | 2024-06-14 14:06 | P.DS ---
Admission Date: 06/10/24 Discharge Date: 06/14/24 Disposition: ROUTINE DISCHARGE Discharge Condition: GOOD Reason for Admission: Chest pain r/o ACS Consultations: Cardiology-Dr. Perkins Brief History of Present Illness: Kumar Forman is a 68 year old male with Pmhx BPH, Cataracts, Diabetes - NIDDM, Myocardial infarction (stent, 2 vessel CABG), GERD, Ulcers who presented to the ED with chief complaint of substernal chest pain that woke him up last night. He took 325 mg of aspirin prior to coming to the ED and received nitroglycerin in the ED with resolution of chest pain. He reports failing a stress test one week ago and scheduled for a heart cath today with Dr. Perkins. He reports having a total of 10 stents and a bypass of the OM and LAD in 2019. Hospital Course: Problem list Chest pain R/O IN LAD in-stent stenosis/thrombus Hx Myocardial infarction (stents and CABG) Diabetes - NIDDM ALEIDA-resolved BPH Cataracts GERD Ulcers Patient was admitted to the hospital for chest pain, he has a history of a stents, two-vessel CABG in the past. Previously had a total of 10 stents and a bypass of the OM and LAD in 2019. He was seen by cardiology who performed a coronary angiogram on 06/11/2024. He was found to have severe mid LAD in-stent restenosis with 100% occlusion although there was no STEMI due to the collaterals from the RCA. He is status post successful shockwave lithotripsy and balloon angioplasty. Moderate coronary artery disease elsewhere. Patient will need repeat coronary angiogram possible stent placement in the LAD after thrombus resolution. Patient has been without chest pain, ambulatory around unit since coronary angiogram on 06/11 He was previously on Effient outpatient, he was receiving therapeutic Lovenox during hospitalization and had been switched to Brilinta. At discharge he will be switched from Effient to Brilinta, prescription sent to [facility] in [place] for Brilinta 90 mg by mouth twice daily. Patient instructed to follow-up with Dr. Perkins in his office morning at 9 AM to set up staged cath. Isosorbide also uptitrated to 60 mg at discharge. Prescription for the isosorbide at the increased dose and Brilinta sent to your pharmacy Stop taking the Effient/prasugrel Continue other home medications as previously prescribed Vital Signs/Physical Exam: Temp Pulse Resp BP Pulse Ox 98.1 F 77 20 165/76 H 99 06/14/24 12:00 06/14/24 12:00 06/14/24 12:00 06/14/24 12:00 06/14/24 12:00 General: Alert, In no apparent distress, Oriented x3 HEENT: Atraumatic, PERRLA Neck: Supple, JVD not distended Respiratory: Clear to auscultation bilaterally, Normal air movement Cardiovascular: Regular rate/rhythm, Normal S1 S2 Gastrointestinal: Normal bowel sounds, No tenderness Musculoskeletal: No tenderness Integumentary: No rashes Neurological: Normal speech, Normal tone, Normal affect Laboratory Data at Discharge: WBC 9.90 thou/uL (4.3-10.9) 06/13/24 05:50 Hgb 15.0 g/dL (13.6-17.9) 06/13/24 05:50 Hct 46.0 % (39.6-49.0) 06/13/24 05:50 Plt Count 186 thou/uL (152-406) 06/13/24 05:50 PT 12.5 SECONDS (9.4-12.5) 06/10/24 05:45 INR 1.12 06/10/24 05:45 APTT 31.6 SECONDS (24.3-36.9) 06/10/24 05:45 Sodium 136 mEq/L (136-145) 06/14/24 05:55 Potassium 4.1 mEq/L (3.5-5.1) 06/14/24 05:55 BUN 17 mg/dL (7-18) 06/14/24 05:55 Creatinine 0.99 mg/dL (0.70-1.30) 06/14/24 05:55 Glucose 158 mg/dL (74-106) H 06/14/24 05:55 Phosphorus 2.8 mg/dL (2.5-4.9) 06/13/24 05:50 Magnesium 2.0 mg/dL (1.6-2.4) 06/13/24 05:50 Total Bilirubin 0.5 mg/dL (0.2-1.0) 06/10/24 05:45 AST 19 U/L (15-37) 06/10/24 05:45 ALT 27 U/L (16-61) 06/10/24 05:45 Alkaline Phosphatase 61 U/L (45-117) 06/10/24 05:45 Triglycerides Cancelled 06/10/24 07:04 Cholesterol Cancelled 06/10/24 07:04 HDL Cholesterol Cancelled 06/10/24 07:04 Cholesterol/HDL Ratio Cancelled 06/10/24 07:04 Home Medications: Aspirin [Aspirin EC 81 MG] 1 tab PO DAILY 12/27/19 Finasteride 5 mg PO DAILY 12/27/19 Atorvastatin Calcium [Lipitor] 40 mg PO BEDTIME 08/12/20 Metoprolol Tartrate 37.5 mg PO DAILY 08/12/20 Ferrous Fumarate/Vit Bcomp&C [Super B-Complex Caplet] 1 each PO BEDTIME 07/25/21 Mirabegron [Myrbetriq] 50 mg PO DAILY 07/25/21 Multivitamin 1 each PO BEDTIME 07/25/21 Omeprazole/Sodium Bicarbonate [Zegerid 20 mg Capsule] 1 each PO BEDTIME 07/25/21 Pregabalin [Lyrica*] 1 cap PO TID 06/10/24 Ropinirole HCl [Requip] 1 tab PO BEDTIME 06/10/24 Tizanidine [Zanaflex*] 1 tab PO BID 06/10/24 Isosorbide Mononitrate [Isosorbide Mononitrate ER] 60 mg PO DAILY #60 tab 06/14/24 Ticagrelor [Brilinta*] 90 mg PO BID #60 tab 06/14/24 New Medications: Ticagrelor [Brilinta*] 90 mg PO BID #60 tab Isosorbide Mononitrate [Isosorbide Mononitrate ER] 60 mg PO DAILY #60 tab Physician Discharge Instructions: Patient was admitted to the hospital for chest pain, he has a history of a stents, two-vessel CABG in the past. Previously had a total of 10 stents and a bypass of the OM and LAD in 2019. He was seen by cardiology who performed a coronary angiogram on 06/11/2024. He was found to have severe mid LAD in-stent restenosis with 100% occlusion although there was no STEMI due to the collaterals from the RCA. He is status post successful shockwave lithotripsy and balloon angioplasty. Moderate coronary artery disease elsewhere. Patient will need repeat coronary angiogram possible stent placement in the LAD after thrombus resolution. Patient has been without chest pain, ambulatory around unit since coronary angiogram on 06/11 He was previously on Effient outpatient, he was receiving therapeutic Lovenox during hospitalization and had been switched to Brilinta. At discharge he will be switched from Effient to Brilinta, prescription sent to [facility] in [place] for Brilinta 90 mg by mouth twice daily. Patient instructed to follow-up with Dr. Perkins in his office morning at 9 AM to set up staged cath. Isosorbide also uptitrated to 60 mg at discharge. Prescription for the isosorbide at the increased dose and Brilinta sent to your pharmacy Stop taking the Effient/prasugrel Continue other home medications as previously prescribed [facility] Continuing Web Assistant Call Shanta Arnold MA at [phone] for questions or concerns after discharge. Expect a call within 1-2 business days of discharge. Alternate: Vicky Almodovar MA at [phone] Diet: AHA Activity: Ad sydnie Followup: Toribio Dowling DO, DO [Primary Care Provider] - 2-3 Days Ean Perkins MD [ACTIVE - CAN ADMIT] - 1-2 Days Time spent managing pt's care (in minutes): 45
== END 2024-06-14 14:11 | disposition home or self-care (01) | DRG 325 ==
LOC: ER 05:05 → ERHOLD 06:59 → 2ND 14:48 → OBSVTOIN 15:46
PROVIDERS: ADMIT Internal Medicine; ATTEND Hospitalist
PROC: 02F03ZZ Fragmentation in Coronary Artery, One Artery, Percutaneous Approach (ICD-10-PCS; principal; 2024-06-10)
PROC: 02703ZZ Dilation of Coronary Artery, One Artery, Percutaneous Approach (ICD-10-PCS; 2024-06-10)
PROC: 4A023N7 Measurement of Cardiac Sampling and Pressure, Left Heart, Percutaneous Approach (ICD-10-PCS; 2024-06-10)
PROC: B2111ZZ Fluoroscopy of Multiple Coronary Arteries using Low Osmolar Contrast (ICD-10-PCS; 2024-06-10)
DX: T82.855A Stenosis of coronary artery stent, initial encounter (principal); I25.110 Atherosclerotic heart disease of native coronary artery with unstable angina pectoris; N17.9 Acute kidney failure, unspecified; E78.5 Hyperlipidemia, unspecified; E11.9 Type 2 diabetes mellitus without complications; K21.9 Gastro-esophageal reflux disease without esophagitis; N40.0 Benign prostatic hyperplasia without lower urinary tract symptoms; D72.829 Elevated white blood cell count, unspecified; I25.2 Old myocardial infarction; Z88.5 Allergy status to narcotic agent; Z88.0 Allergy status to penicillin; Z79.4 Long term (current) use of insulin; Z95.5 Presence of coronary angioplasty implant and graft; Z79.82 Long term (current) use of aspirin; Z79.84 Long term (current) use of oral hypoglycemic drugs; Z79.899 Other long term (current) drug therapy; Z96.652 Presence of left artificial knee joint; Y83.8 Other surgical procedures as the cause of abnormal reaction of the patient, or of later complication, without mention of misadventure at the time of the procedure
CPT/HCPCS: 36415; 76937; 80048; 80061; 80076; 82947; 83036; 83735; 83880; 84100; 84439; 84443; 84484; 85025; 85347; 85610; 85730; 92920; 93005; 93306; 93458; 99152; 99153; 99285; C1725; C1893; G0378; J0461; J1200; J1644; J1650; J2003; J2250; J2270; J2919; J3010; J7030; J7040; Q9967

== ENCOUNTER 2024-06-20 12:00 | Day surgery (SDC) | payer BC ==
[2024-06-20] MEDS ORDERED: HEPARIN 10,000 UNIT/10 ML VIAL IV ONE (12:16)
[2024-06-20] MEDS ORDERED: HEPA 1000U/500MLS 2,000 UNIT/1,000 ML BAG IV ONE (12:16)
[2024-06-20] MEDS ORDERED: CLOPIDOGREL 75 MG TABLET ONE (12:17)
[2024-06-20] MEDS ORDERED: VERAPAMIL HCL 10 MG/4 ML VIAL IV ONE (12:17)
[2024-06-20] MEDS ORDERED: ATROPINE SULF 1 MG/10 ML SYR IV ONE (12:17)
[2024-06-20] MEDS ORDERED: HEPARIN 5000 UNIT/ML 1 ML VIAL ONE (12:17)
[2024-06-20] MEDS ORDERED: LIDOCAINE 1% 20 ML MDV ONE (12:17)
[2024-06-20] MEDS ORDERED: MIDAZOLAM HCL 2 MG/2 ML INJ ONE (12:17)
[2024-06-20] MEDS ORDERED: TICAGRELOR 90 MG TABLET PO ONE (12:18)
[2024-06-20] MEDS ORDERED: ASPIRIN 325 MG TAB ONE (12:18)
[2024-06-20] MEDS ORDERED: FENTANYL CITR 100 MCG/2 ML ONE (12:18)
[2024-06-20] MEDS ORDERED: NA CHLORIDE 0.9% 500 ML ONE (12:40)
[2024-06-20] MEDS ORDERED: DIPHENHYDRAMINE 50 MG/ML VIAL ONE (13:13)
[2024-06-20] MEDS ORDERED: METHYLPREDNISOLONE 125 MG INJ ONE (13:13)
[2024-06-20 16:58] VITALS: O2SAT 95
[2024-06-20 17:42] VITALS: BP 175/83
--- NOTE | 2024-06-22 20:37 | OP ---
Date of Procedure: 06/20/2024 Surgeon: JANE HELTON Procedures Performed: 1.Selective coronary angiogram. 2.Left heart catheterization. 3.PCI of severe mid LAD stenosis. I used 2.5 x 32 mm Synergy drug-eluting stent. Indication: Unstable angina. Access: Right radial artery 6-Mozambican closed with TR band. Complications: None. Bleeding: Less than 50 mL. Anesthesia: Total sedation time is 1 hour. Description Of Procedure: After risks, benefits, and alternatives were explained, the patient agreed to procedure and signed informed consent. The patient was brought into cardiac catheterization [facility], prepped and draped in usual sterile fashion. Then, I accessed right radial artery using pedi atric micropuncture kit, placed 6-Mozambican Slender sheath and took 5-Mozambican [place] 4.0 catheter into the aortic root, engaged the left main, took standard views, and in the RCA, took standard views. Gabbi ter was pushed over the wire, measured the LVEDP. Pullback did not record any gradient. Then I exch anged for 6-Mozambican EBU3.5 guide, engaged the left main, gave systemic heparin to assure ACT level abo ve 250. Patient is already on Brilinta and aspirin. Took Runthrough wire into the LAD, placed it di claus and then used a 3.5 x 15 NC balloon, I pre-dilated the old stent very well and then I placed 2 .5 x 32 mm Synergy drug-eluting stent with excellent expansion, 0% residual stenosis, and JORDAN-3 flow . Then, removed the wire. Final angiogram was satisfactory. The patient has received heparin to as sure ACT level above 250 throughout the procedure. Then, I removed the guide and removed the sheath and placed TR band with good hemostasis. Findings: 1.Left main; large and normal. 2.LAD; proximal stent to the LAD is patent, but mid to distal there was like a 70% stenosis, status post successful PCI as above. 3.Left circumflex; widely patent stent, proximal to mid left circumflex, OM1 branch has 80% proximal ly, but it is very small. 4.RCA; it was not injected, known to give collaterals to LAD with moderate disease. 5.Elevated LVEDP at 20 mmHg. Conclusions: Severe mid LAD stenosis, status post successful PCI as above. Plan: Brilinta, aspirin, and high-dose statin. SR/MODL Voice ID: [id number] Report ID: [id number]
== END 2024-06-20 17:45 | disposition home or self-care (01) ==
LOC: CCL 12:00
PROVIDERS: ATTEND Internal Medicine
DX: I25.110 Atherosclerotic heart disease of native coronary artery with unstable angina pectoris (principal); I11.0 Hypertensive heart disease with heart failure; I50.9 Heart failure, unspecified; I67.9 Cerebrovascular disease, unspecified; I73.9 Peripheral vascular disease, unspecified; E11.9 Type 2 diabetes mellitus without complications; E78.5 Hyperlipidemia, unspecified; E66.01 Morbid (severe) obesity due to excess calories; Z95.1 Presence of aortocoronary bypass graft; Z95.5 Presence of coronary angioplasty implant and graft; Z87.891 Personal history of nicotine dependence; Z79.85 Long-term (current) use of injectable non-insulin antidiabetic drugs; Z79.899 Other long term (current) drug therapy; Z88.0 Allergy status to penicillin; Z88.8 Allergy status to other drugs, medicaments and biological substances; Z82.49 Family history of ischemic heart disease and other diseases of the circulatory system
CPT/HCPCS: 85347; 92928; 93458; 76937; C1893; Q9967; C1725; J1644; J2003; J1200; J2250; J3010; J2919; J7040; 99152; 99153; J0461

== ENCOUNTER 2024-09-08 21:31 | Observation (INO) | payer BC, OTHER ==
[2024-09-08 22:19] LABS: Absolute Eosinophils 0.1 K/uL (0-0.5); Absolute Lymphocytes (CBC) 1.9 K/uL (0.7-4.9); Absolute Monocytes 0.9 K/uL (0.1-1.3); Absolute Neutrophil 6.9 K/uL (1.8-8.0); Basophils % 0.4 % (0-1.3); Eosinophils % 0.9 % (0-4.4); Hematocrit 45.4 % (39.6-49.0); Hemoglobin 15.3 g/dL (13.6-17.9); Lymphocytes % 19.8 % (15.3-44.8); MCH 27.9 pg (27.0-35.0); MCHC 33.6 g/dL (32.0-36.0); MPV 6.9 fL (7.6-11.3); Monocytes % 8.8 % (3.3-12.3); Neutrophils % 70.1 % (41.7-73.7); Nucleated Red Blood Cells % 0.1 % (0-0); Platelets 189 thou/uL (152-406); RBC Red Blood Cell Count 5.47 M/uL (4.33-5.43); Red Cell Distribution Width 18.1 % (12.1-15.2)
--- NOTE | 2024-09-08 22:27 | RAD REPORT ---
Procedure: Chest Single View HISTORY: Chest pain COMPARISON: May 2024 FINDINGS: The lungs appear clear of acute infiltrate. No significant pleural effusion noted. The heart is mildly enlarged. Post surgical changes involve the chest IMPRESSION: No acute abnormality is displayed.
[2024-09-08 22:36] LABS: Anion Gap 13.9 mEq/L (5.0-15.0); Troponin High Sensitivity 13.4 pg/mL (<58.9)
[2024-09-08 22:56] LABS: Potassium 3.9 mEq/L (3.5-5.1)
--- NOTE | 2024-09-08 22:58 | EDPHYS ---
Physician Documentation [facility] Name: Kumar Forman Age: 68 yrs Sex: Male : 1955 Arrival Date: 09/08/2024 Time: 21:31 Bed 19 Private MD: ED Physician Tucker Kumar HPI: 09/09 00:43 This 68 yrs old Male presents to ER via Wheelchair with complaints of chest pain. sb4 00:50 Patient patient reports a sudden onset of chest pain, dizziness, generalized weakness, sb4 and the feeling of irregular pulse. Reports an extensive cardiac history, has had a total of 11 stents. Has had a failed CABG. Sees Dr. Perkins and get stress test every 3 months. States that he had a heart attack 2 months ago and had his " maker cleaned out last month" reports compliance with all of his medications which include antihypertensives, aspirin, and Brilinta. Historical: - Allergies: 09/08 21:44 AZO Standard; cm10 21:44 Demerol; cm10 21:44 Iodine; cm10 21:44 PENICILLINS; cm10 - PMHx: 21:44 BPH; Cataracts; Diabetes - NIDDM; GERD; Myocardial infarction; Ulcers; cm10 - PSHx: 21:44 bilateral knee surgery; Stented artery; cm10 - Immunization history:: Adult Immunizations up to date. - Infectious Disease History:: Denies. - Social history:: Smoking status: Patient denies any tobacco usage or history of. ROS: 09/09 00:50 Constitutional: Negative for fever, chills, and weight loss, sb4 Cardiovascular: Positive for chest pain, Neuro: Positive for dizziness, weakness, All other systems are negative, Exam: 00:50 Head/Face: Normocephalic, atraumatic. Eyes: Extra-ocular motions intact. Periorbital sb4 areas with no swelling, redness, or edema. ENT: Mucous membranes moist. Cardiovascular: Regular rate and rhythm with a normal S1 and S2. Respiratory: No increased work of breathing, no retractions or nasal flaring. Abdomen/GI: Soft, non-tender, no distension. Skin: Warm, dry with normal turgor. Normal color with no rashes, no lesions, and no evidence of cellulitis. 00:52 Constitutional: The patient appears alert, awake, pale, uncomfortable, sb4 Vital Signs: 09/08 21:41 BP 142 / 85; Pulse 97; Resp 15; Temp 97.9(O); Pulse Ox 97% on R/A; Weight 111.58 kg; cm10 Height 5 ft. 7 in. ; Pain 0/10; 09/09 01:54 BP 136 / 73; Pulse 72; Resp 20; Temp 97.9; Pulse Ox 92% on R/A; Pain 0/10; bm8 09/08 21:41 Body Mass Index 38.53 (111.58 kg, 170.18 cm) cm10 09/08 21:41 Pain Scale: Adult cm10 09/09 01:54 Pain Scale: Adult bm8 [place] Coma Score: 09/08 21:46 Eye Response: spontaneous(4). Motor Response: obeys commands(6). Verbal Response: bm8 oriented(5). Total: 15. 09/09 01:54 Eye Response: to voice(3). Motor Response: obeys commands(6). Verbal Response: bm8 oriented(5). Total: 14. MDM: 09/08 21:34 Medical Screening Exam initiated sb4 09/09 00:53 The patient was not given aspirin in the Emergency Department. Patient reports taking sb4 aspirin within the past 24 hours. Data reviewed: vital signs, nurses notes, lab test result(s), EKG, radiologic studies, and as a result, I will admit patient. Consideration of Admission/Observation Patient was admitted/placed on observation. Care significantly affected by the following chronic conditions: Diabetes. Counseling: I had a detailed discussion with the patient and/or guardian regarding the historical points, exam findings, and any diagnostic results supporting the discharge/admit diagnosis, the presence of at least one elevated blood pressure reading (>120/80) during this emergency department visit, lab results, radiology results, the need for further work-up and treatment in the hospital. 09/08 21:46 Order name: Basic Metabolic Panel; Complete Time: 22:56 8 09/08 21:46 Order name: CBC with Diff; Complete Time: 22:30 bm8 09/08 21:46 Order name: Troponin HS; Complete Time: 22:56 8 09/08 23:28 Order name: Lipid Profile EDUT 01/30 23:29 Order name: Lipid Profile EDMS 09/08 23:29 Order name: Troponin High Sensitivity EDMS 09/08 23:29 Order name: Troponin High Sensitivity EDMS 09/08 23:29 Order name: Troponin High Sensitivity; Complete Time: 13:37 EDMS 09/08 23:29 Order name: Troponin High Sensitivity EDMS 09/08 23:29 Order name: Troponin High Sensitivity EDMS 09/08 23:31 Order name: Magnesium EDMS 09/08 23:31 Order name: Phosphorus EDMS 09/09 06:56 Order name: Basic Metabolic Panel; Complete Time: 13:37 EDMS 09/09 06:56 Order name: Phosphorus; Complete Time: 13:37 EDMS 09/09 06:56 Order name: Lipid Profile; Complete Time: 13:37 EDMS 09/09 06:56 Order name: Magnesium; Complete Time: 13:37 EDMS 09/09 06:59 Order name: Hemoglobin A1c; Complete Time: 13:37 EDMS 09/09 07:30 Order name: Glucose, Ancillary Testing; Complete Time: 13:37 EDMS 09/09 11:55 Order name: Glucose, Ancillary Testing; Complete Time: 13:37 EDMS 09/08 21:46 Order name: XRAY Chest (1 view); Complete Time: 22:30 bm8 09/08 23:28 Order name: Echo with Doppler EDMS 09/08 21:46 Order name: EKG; Complete Time: 21:46 8 09/08 21:46 Order name: Cardiac monitoring; Complete Time: 21:46 8 09/08 21:46 Order name: EKG - Nurse/Tech; Complete Time: 21:46 8 09/08 21:46 Order name: IV Saline Lock; Complete Time: 21:46 bm8 09/08 21:46 Order name: Labs collected and sent; Complete Time: 21:46 8 09/08 21:46 Order name: O2 Per Protocol; Complete Time: 21:46 8 09/08 21:46 Order name: O2 Sat Monitoring; Complete Time: 21:46 bm8 EC/30 22:36 Rate is 94 beats/min. Rhythm is irregular, Sinus Rhythm with 1st degree heart block. ME sb4 interval is prolonged at 242 msec. QRS interval is normal at 88 msec. QT interval is normal at 376 msec. No Q waves. T waves are Normal. No ST changes noted. Clinical impression: 1st degree heart block. Interpreted by me. Reviewed by me. Administered Medications: No medications were administered Disposition: 09/09 12:59 Co-signature as Attending Physician, Tucker Kumar MD I agree with the assessment and [facility] plan of care. Disposition Summary: 09/08/24 22:58 Hospitalization Ordered Notes: Hospitalization Status: Observation sb4 Provider: [place] sb4 Condition: Fair sb4 Problem: new sb4 Symptoms: are unchanged sb4 Bed/Room Type: Standard sb4 Location: Telemetry/MedSurg (observation)(09/09/24 10:54) ja1 Room Assignment: 221(09/09/24 10:54) [facility] Diagnosis - Chest pain, unspecified sb4 Forms: - Medication Reconciliation Form sb4 - SBAR form sb4 - Leadership Thank You Letter sb4 Signatures: Dispatcher [employer] EDTucker Anand MD MD cha Aguilar, Jose RN RN ja1 Lisa Amato PA-C PA-C sb4 Nanette George rv1 Gabriella Patel, RN RN cm10 Rudy Go, RN RN bm8 Corrections: (The following items were deleted from the chart) 09/08 23:08 22:58 Telemetry/MedSurg (observation) sb4 rv1 23:08 22:58 sb4 rv1 09/09 00:53 00:50 Constitutional: This is a well developed, well nourished patient who is awake, sb4 alert, and in no acute distress. Head/Face: Normocephalic, atraumatic. Eyes: Extra-ocular motions intact. Periorbital areas with no swelling, redness, or edema. ENT: Mucous membranes moist. Cardiovascular: Regular rate and rhythm with a normal S1 and S2. Respiratory: No increased work of breathing, no retractions or nasal flaring. Abdomen/GI: Soft, non-tender, no distension. Skin: Warm, dry with normal turgor. Normal color with no rashes, no lesions, and no evidence of cellulitis. sb4 10:54 09/08 23:08 [facility] ER HOLD rv1 1 09/09 10:54 09/08 23:08 ERHOLD- rv1 [facility]
--- NOTE | 2024-09-08 22:58 | ER ---
Nurse's Notes [facility] Name: Kumar Forman Age: 68 yrs Sex: Male : 1955 Arrival Date: 09/08/2024 Time: 21:31 Bed 19 Private MD: Diagnosis: Chest pain, unspecified Presentation: 09/08 21:41 Chief complaint: Patient states: Dizziness, generalized weakness, and irregular heart cm10 rate onset 1.5 hrs ago. Coronavirus screen: Client denies travel out of the [place] in the last 14 days. Ebola Screen: Patient denies travel to an Ebola-affected area in the 21 days before illness onset. No symptoms or risks identified at this time. Initial Sepsis Screen: Does the patient meet any 2 criteria? No. Patient's initial sepsis screen is negative. Does the patient have a suspected source of infection? No. Patient's initial sepsis screen is negative. Risk Assessment: Do you want to hurt yourself or someone else? Patient reports no desire to harm self or others. Onset of symptoms was September 08, 2024. 21:41 Acuity: STEF 2 cm10 21:41 Method Of Arrival: Wheelchair cm10 Triage Assessment: 21:45 General: Appears in no apparent distress. uncomfortable, Behavior is calm, cooperative. cm10 Pain: Denies pain. Neuro: No deficits noted. Level of Consciousness is awake, alert, obeys commands, Oriented to person, place, time, situation, Appropriate for age Reports dizziness. Respiratory: No deficits noted. Airway is patent Respiratory effort is even, unlabored, Respiratory pattern is regular, symmetrical. Historical: - Allergies: 21:44 AZO Standard; cm10 21:44 Demerol; cm10 21:44 Iodine; cm10 21:44 PENICILLINS; cm10 - PMHx: 21:44 BPH; Cataracts; Diabetes - NIDDM; GERD; Myocardial infarction; Ulcers; cm10 - PSHx: 21:44 bilateral knee surgery; Stented artery; cm10 - Immunization history:: Adult Immunizations up to date. - Infectious Disease History:: Denies. - Social history:: Smoking status: Patient denies any tobacco usage or history of. Screenin:46 [facility] ED Fall Risk Assessment (Adult) History of falling in the last 3 months, bm8 including since admission No falls in past 3 months (0 pts) Confusion or Disorientation No (0 pts) Intoxicated or Sedated No (0 pts) Impaired Gait No (0 pts) Mobility Assist Device Used No (0 pt) Altered Elimination No (0 pt) Score/Fall Risk Level 0 - 2 = Low Risk Oriented to surroundings, Maintained a safe environment, Educated pt \T\ family on fall prevention, incl call for assistance when getting out of bed, Assessed \T\ reinforced patient's understanding of fall precautions, Hourly rounding (assess needs \T\ fall precautionary measures) done, Used ambulatory aids as needed (educated on \T\ assisted with), Used gait belt as appropriate. Abuse screen: Denies threats or abuse. Nutritional screening: No deficits noted. Tuberculosis screening: No symptoms or risk factors identified. Assessment: 21:46 General: Appears in no apparent distress. comfortable, Behavior is calm, cooperative, bm8 appropriate for age. Pain: Complains of pain in left arm Pain currently is 3 out of 10 on a pain scale. Neuro: No deficits noted. Level of Consciousness is awake, alert, obeys commands, Oriented to person, place, time, situation, Appropriate for age. Cardiovascular: Heart tones S1 S2 present Capillary refill < 3 seconds in bilateral fingers Patient's skin is warm and dry. Rhythm is 1st degree av block. Respiratory: No deficits noted. Airway is patent Respiratory effort is even, unlabored, Respiratory pattern is regular, symmetrical. GI: No deficits noted. No signs and/or symptoms were reported involving the gastrointestinal system. : No deficits noted. No signs and/or symptoms were reported regarding the genitourinary system. EENT: No deficits noted. No signs and/or symptoms were reported regarding the EENT system. Derm: No deficits noted. No signs and/or symptoms reported regarding the dermatologic system. Musculoskeletal: No deficits noted. No signs and/or symptoms reported regarding the musculoskeletal system. 09/09 01:54 Reassessment: Patient appears in no apparent distress at this time. Patient and/or bm8 family updated on plan of care and expected duration. Pain level reassessed. pt is resting with eyes closed breathing is even unlabored with symmetrical rise and fall of chest. Pt does have moments of apnea lasting 10 to 30 secs. Patient denies pain at this time. Patient states feeling better. Patient states symptoms have improved. Vital Signs: 09/08 21:41 BP 142 / 85; Pulse 97; Resp 15; Temp 97.9(O); Pulse Ox 97% on R/A; Weight 111.58 kg; cm10 Height 5 ft. 7 in. ; Pain 0/10; 09/09 01:54 BP 136 / 73; Pulse 72; Resp 20; Temp 97.9; Pulse Ox 92% on R/A; Pain 0/10; bm8 09/08 21:41 Body Mass Index 38.53 (111.58 kg, 170.18 cm) cm10 09/08 21:41 Pain Scale: Adult cm10 09/09 01:54 Pain Scale: Adult bm8 [place] Coma Score: 09/08 21:46 Eye Response: spontaneous(4). Motor Response: obeys commands(6). Verbal Response: bm8 oriented(5). Total: 15. 09/09 01:54 Eye Response: to voice(3). Motor Response: obeys commands(6). Verbal Response: bm8 oriented(5). Total: 14. ED Course: 09/08 21:32 Patient arrived in ED. jj6 21:32 Lisa Amato PA-C is PHCP. sb4 21:32 Tucker Kumar MD is Attending Physician. sb4 21:42 EKG done, by ED staff. hw 21:44 Triage completed. cm10 21:44 Arm band placed on right wrist. Patient placed in an exam room, on a stretcher, on cm10 scrap carrier, on pulse oximetry. EKG completed in triage. Results shown to MD. 21:46 No provider procedures requiring assistance completed. Initial lab(s) drawn, by serge medina sent to lab. Inserted saline lock: 20 gauge in left forearm, using aseptic technique. Blood collected. Flushed with 10 mL NS. Patient maintains SpO2 saturation greater than 95% on room air. 21:46 Patient has correct armband on for positive identification. Call light in reach. Side bm8 rails up X 1. Client placed on continuous cardiac and pulse oximetry monitoring. NIBP monitoring applied. tape maker on. Pulse ox on. NIBP on. Door closed. Noise minimized. Warm blanket given. Pillow given. Verbal reassurance given. Head of bed elevated. 22:23 XRAY Chest (1 view) In Process Unspecified. EDMS 22:57 Prince Johnson MD is Hospitalizing Provider. sb4 09/09 01:54 Rudy Go, RN is Primary Nurse. bm8 01:54 Patient admitted, IV remains in place. bm8 01:54 Provided Education on: need for admission. bm8 07:51 Primary Nurse role handed off by Rudy Go, RN eb Administered Medications: No medications were administered Medication: 09/08 21:46 VIS not applicable for this client. bm8 Outcome: 22:58 Decision to Hospitalize by Provider. sb4 09/09 01:54 Admitted to ER Hold. Please see [facility] for further documentation. bm8 Condition: stable Instructed on the need for admit, 12:02 Patient left the ED. aa5 Signatures: Dispatcher [employer] EDND Crystal Flores, RN RN aa5 Marga Canseco Jennifer jjLisa Greene, PA-C PA-C sb4 Gabriella Patel, RN RN cm10 Rudy Go, RN RN bm8 Pili Luis
[2024-09-08] MEDS ORDERED: NITROGLYCERIN 0.4 MG/TAB SL PRN (23:24)
--- NOTE | 2024-09-08 23:32 | P.HP ---
Certification for Inpatient Patient admitted to: Observation With expected LOS: <2 Midnights Practitioner: I am a practitioner with admitting privileges, knowledge of patient current condition, hospital course, and medical plan of care. Services: Services provided to patient in accordance with Admission requirements found in Title 42 Section 412.3 of the Code of Federal Regulations Patient History Date of Service: 09/08/24 Reason for admission: chest pain History of Present Illness: Patient is a 68-year-old male with a past medical history of diabetes mellitus, coronary disease status post CABG x 2 and PCI, GERD and peptic ulcer disease. Patient is being admitted after he presented with chest pain. He was at home sitting when he developed sudden onset of chest pressure radiating to his left upper extremity. He is also reporting left hand paresthesia. Associated symptoms include shortness of breath. During my evaluation in the ER, patient appeared visibly distressed by his chest pain. His first EKG revealed normal sinus rhythm with first degree AV block. His first troponin is negative. He follows up with Dr. Perkins who has advised him to present to the ER for further evaluation. His last cardiac workup was June 2024 when he underwent coronary angiogram and PCI of severe mid LAD stenosis with a drug-eluting stent. Allergies iodine Allergy (Severe, Verified 06/09/24 13:05) Redness, Swelling Penicillins Allergy (Severe, Verified 06/09/24 13:05) Anaphylaxis phenazopyridine Allergy (Severe, Verified 06/09/24 13:05) Anaphylaxis Home Medications: Aspirin [Aspirin EC 81 MG] 1 tab PO DAILY 12/27/19 Finasteride 5 mg PO DAILY 12/27/19 Atorvastatin Calcium [Lipitor] 40 mg PO BEDTIME 08/12/20 Metoprolol Tartrate 37.5 mg PO DAILY 08/12/20 Ferrous Fumarate/Vit Bcomp&C [Super B-Complex Caplet] 1 each PO BEDTIME 07/25/21 Mirabegron [Myrbetriq] 50 mg PO DAILY 07/25/21 Multivitamin 1 each PO BEDTIME 07/25/21 Omeprazole/Sodium Bicarbonate [Zegerid 20 mg Capsule] 1 each PO BEDTIME 07/25/21 Pregabalin [Lyrica*] 1 cap PO TID 06/10/24 Ropinirole HCl [Requip] 1 tab PO BEDTIME 06/10/24 Tizanidine [Zanaflex*] 1 tab PO BID 06/10/24 Isosorbide Mononitrate [Isosorbide Mononitrate ER] 60 mg PO DAILY #60 tab 06/14/24 Ticagrelor [Brilinta*] 90 mg PO BID #60 tab 06/14/24 - Past Medical/Surgical History Diabetic: No -: HTN -: Hyperlipidemia -: BPH -: GERD -: [place] -: NIDDM -: Heart stent, 2004 -: Heart stent, 2005 -: Cataract Surgery (Right eye) -: Total Left Knee Replacement -: Cholecystectomy -: CABG x2 (OM, LAD) 2019 - Family History Mother -: Heart disease, Hypertension Notes: RA, dementia Father -: Cancer Notes: Hodgkin's - Social History Alcohol use: Yes CD- Drugs: No Caffeine use: No Physical Examination - Physical Exam General: Acute distress, Moderate distress, Obese HEENT: Atraumatic, Normocephalic Respiratory: Clear to auscultation bilaterally, Normal air movement Cardiovascular: No edema, Normal pulses, Regular rate/rhythm, Normal S1 S2 Neurological: Normal speech - Studies Laboratory Data (last 24 hrs) 09/08/24 09/08/24 21:56 21:56 WBC 9.90 Hgb 15.3 Hct 45.4 Plt Count 189 Sodium 141 Potassium 3.9 BUN 26 H Creatinine 1.53 H Glucose 227 H Assessment and Plan - Problems (Diagnosis) (1) Chest pain, rule out acute myocardial infarction Current Visit: No Status: Acute (2) Coronary artery disease Onset Date: 01/19/17 Current Visit: No Status: Acute (3) Diabetes mellitus type 2 in obese Current Visit: No Status: Acute (4) History of coronary artery bypass graft Current Visit: No Status: Acute (5) Hypertension Current Visit: No Status: Acute - Plan Assessment Patient is 68-year-old male with a past medical history of coronary disease status post CABG, PCI in June 2024. He is being admitted for an acute onset of chest pain which started 5 hours before presentation. Patient did not take any nitroglycerin. He is reporting a chest pressure radiating to his left upper extremity causing left hand paresthesia. Associated symptoms include shortness of breath. His first EKG reveals normal sinus rhythm and first-degree AV block. His first troponin is negative. During my evaluation, patient appeared visibly distressed. His SBP is 125 mmHg Acute chest pain Coronary disease status post CABG, recently PCI to mid LAD with drug-eluting stent Type 2 diabetes mellitus Hypertension Hyperlipidemia Obesity Plan: Will admit under observation with telemetry Trend troponin and EKG 2D echo ordered Check lipid panel Cardiology consulted As needed nitroglycerin ordered Will resume home medications. Patient should be on dual antiplatelet therapy given recent PCI Patient is full code - Advance Directives Does patient have a Living Will: No Does patient have a Durable POA for Healthcare: No
[2024-09-09] MEDS ORDERED: HEPARIN 5000 UNIT/ML 1 ML VIAL ONE ×2 (02:25→08:23)
[2024-09-09] MEDS: HEPARIN 5000 UNIT/ML 1 ML VIAL SQ SCH (02:27)
[2024-09-09 02:46] VITALS: BMI 38.3
[2024-09-09] MEDS ORDERED: ONDANSETRON 4 MG/2 ML VIAL ONE (05:29)
[2024-09-09] MEDS: ONDANSETRON 4 MG/2 ML VIAL IV ONE (05:33)
[2024-09-09 06:55] LABS: Anion Gap 11.7 mEq/L (5.0-15.0); Magnesium 2.2 mg/dL (1.6-2.4); Phosphorus 3.7 mg/dL (2.5-4.9); Potassium 3.7 mEq/L (3.5-5.1); Troponin High Sensitivity 12.6 pg/mL (<58.9)
[2024-09-09] MEDS ORDERED: TICAGRELOR 90 MG TABLET PO ONE (08:23)
[2024-09-09] MEDS ORDERED: ASPIRIN EC 81 MG TAB PO ONE (08:23)
[2024-09-09] MEDS: ASPIRIN EC 81 MG TAB PO SCH (09:00)
[2024-09-09] MEDS: TICAGRELOR 90 MG TABLET PO SCH (09:00)
--- NOTE | 2024-09-09 09:59 | P.PN ---
Date of Service: 09/09/24 Patient is a 68-year-old male with a past medical history of diabetes mellitus, coronary disease status post CABG x 2 and PCI, GERD and peptic ulcer disease. Patient is being admitted after he presented with chest pain. He was at home sitting when he developed sudden onset of chest pressure radiating to his left upper extremity. He is also reporting left hand paresthesia. Associated symptoms include shortness of breath. During my evaluation in the ER, patient appeared visibly distressed by his chest pain. His first EKG revealed normal sinus rhythm with first degree AV block. His first troponin is negative. He follows up with Dr. Perkins who has advised him to present to the ER for further evaluation. His last cardiac workup was June 2024 when he underwent coronary angiogram and PCI of severe mid LAD stenosis with a drug-eluting stent. - Subjective denies pain at this time - Physical Exam General: Acute distress, no distress, Obese HEENT: Atraumatic, Normocephalic Respiratory: Clear to auscultation bilaterally, Normal air movement Cardiovascular: No edema, Normal pulses, Regular rate/rhythm, Normal S1 S2 Neurological: Normal speech - Studies Laboratory Data (last 24 hrs) 09/08/24 09/08/24 21:56 21:56 WBC 9.90 Hgb 15.3 Hct 45.4 Plt Count 189 Sodium 141 Potassium 3.9 BUN 26 H Creatinine 1.53 H Glucose 227 H Assessment and Plan - Problems (Diagnosis) (1) Chest pain, rule out acute myocardial infarction Current Visit: No Status: Acute (2) Coronary artery disease Onset Date: 01/19/17 Current Visit: No Status: Acute (3) Diabetes mellitus type 2 in obese Current Visit: No Status: Acute (4) History of coronary artery bypass graft Current Visit: No Status: Acute (5) Hypertension Current Visit: No Status: Acute - Plan Assessment Patient is 68-year-old male with a past medical history of coronary disease status post CABG, PCI in June 2024. He is being admitted for an acute onset of chest pain which started 5 hours before presentation. Patient did not take any nitroglycerin. He is reporting a chest pressure radiating to his left upper extremity causing left hand paresthesia. Associated symptoms include shortness of breath. His first EKG reveals normal sinus rhythm and first-degree AV block. His first troponin is negative. During my evaluation, patient appeared visibly distressed. His SBP is 125 mmHg Acute chest pain Coronary disease status post CABG, recently PCI to mid LAD with drug-eluting stent Type 2 diabetes mellitus Hypertension Hyperlipidemia Obesity Plan: Will admit under observation with telemetry Trend troponin and EKG 2D echo ordered Check lipid panel Cardiology consulted As needed nitroglycerin ordered Will resume home medications. Patient should be on dual antiplatelet therapy given recent PCI Patient is full code 09/09/24 - Pt is without pain, arrhythmia, or any other complaint this am. 2nd trop negative. Will continue to assess. Added Brilinta back to regimen. - Advance Directives Does patient have a Living Will: No Does patient have a Durable POA for Healthcare: No
[2024-09-09 12:14] VITALS: O2SAT 92
--- NOTE | 2024-09-09 13:38 | ECHO ---
HEIGHT: 5 ft 7 in WEIGHT: 245 lb 0 oz DATE OF STUDY: 09/09/[address]: Prince Ho Johnson MD 2-DIMENSIONAL: YES M.MODE: YES DOPPLER: YES COLOR FLOW: YES TDS: NO PORTABLE: YES DEFINITY: NO BUBBLE STUDY: NO DIAGNOSIS: CHEST PAIN CARDIAC HISTORY: CATHERIZATION: YES SURGERY: YES PROSTHETIC VALVE: NO PACEMAKER: NO MEASUREMENTS (cm) DIASTOLIC (NORMALS) SYSTOLIC (NORMALS) IVSd 1.1 (0.6-1.2) LA Diam 3.7 (1.9-4.0) LVEF 45-50% LVIDd 6.2 (3.5-5.7) LVIDs 4.9 (2.0-3.5) %FS 22% LVPWd 1.0 (0.6-1.2) Ao Diam 3.0 (2.0-3.7) 2 DIMENSIONAL ASSESSMENT: RIGHT ATRIUM: NORMAL LEFT ATRIUM: NORMAL RIGHT VENTRICLE: NORMAL LEFT VENTRICLE: NORMAL TRICUSPID VALVE: TRACE OF TRICUSPID REGURGITATION MITRAL VALVE: TRACE OF MITRAL REGURGITATION PULMONIC VALVE: NORMAL AORTIC VALVE: NORMAL PERICARDIAL EFFUSION: NONE AORTIC ROOT: NORMAL LEFT VENTRICULAR WALL MOTION: NORMAL. DOPPLER/COLOR FLOW: DIASTOLIC DYSFUNCTION. COMMENTS: 1. LOW NORMAL LEFT VENTRICULAR SYSTOLIC FUNCTION, EJECTION FRACTION 45-50%, NORMAL WALL MOTION. 2. DIASTOLIC DYSFUNCTION. 3. NORMAL FILLING PRESSURE. TECHNOLOGIST: DANIA DONALD
--- NOTE | 2024-09-09 14:05 | P.CNS ---
Date of Consult: 09/09/24 Chief Complaint: chest pain History of Present Illness: Patient with PMH of CAD s/p CABG (failed) s/p multiple stents in to LAD, woth moderate mid RCA disease, presented with generalized body aches, lightheaded and left arm numbness and shoulder sharp pain, denies chest pain, no palpitations, no dizzy spells, no syncope. Allergies iodine Allergy (Severe, Verified 06/09/24 13:05) Redness, Swelling Penicillins Allergy (Severe, Verified 06/09/24 13:05) Anaphylaxis phenazopyridine Allergy (Severe, Verified 06/09/24 13:05) Anaphylaxis Home medications list reviewed: Yes Home Medications: Aspirin [Aspirin EC 81 MG] 1 tab PO DAILY 12/27/19 Finasteride 5 mg PO DAILY 12/27/19 Atorvastatin Calcium [Lipitor] 40 mg PO BEDTIME 08/12/20 Metoprolol Tartrate 37.5 mg PO DAILY 08/12/20 Mirabegron [Myrbetriq] 50 mg PO DAILY 07/25/21 Multivitamin 1 each PO BEDTIME 07/25/21 Omeprazole/Sodium Bicarbonate [Zegerid 20 mg Capsule] 1 each PO BEDTIME 07/25/21 Pregabalin [Lyrica*] 1 cap PO TID 06/10/24 Ropinirole HCl [Requip] 1 tab PO BEDTIME 06/10/24 Isosorbide Mononitrate [Isosorbide Mononitrate ER] 60 mg PO DAILY #60 tab 06/14/24 Ticagrelor [Brilinta*] 90 mg PO BID #60 tab 06/14/24 Baclofen 20 mg PO BID 09/09/24 Ferrous Gluconate 1 tab PO DAILY 09/09/24 - Past Medical/Surgical History Diabetic: No -: HTN -: Hyperlipidemia -: BPH -: GERD -: [place] -: NIDDM -: Heart stent, 2004 -: Heart stent, 2005 -: Cataract Surgery (Right eye) -: Total Left Knee Replacement -: Cholecystectomy -: CABG x2 (OM, LAD) 2019 - Family History Mother Medical History: Heart disease, Hypertension Notes: RA, dementia Father Medical History: Cancer Notes: Hodgkin's - Social History Smoking Status: Unknown if ever smoked Alcohol use: Yes CD- Drugs: No Caffeine use: No Review of Systems 10-point ROS is otherwise unremarkable Physical Examination Temp Pulse Resp BP Pulse Ox 97.6 F 85 18 151/77 H 98 09/09/24 12:00 09/09/24 12:00 09/09/24 12:00 09/09/24 12:00 09/09/24 12:00 General: Alert, In no apparent distress HEENT: Atraumatic, PERRLA, Mucous membr. moist/pink, EOMI, Sclerae nonicteric Neck: Supple, 2+ carotid pulse no bruit, No LAD, Without JVD or thyroid abnormality Respiratory: Clear to auscultation bilaterally, Normal air movement Cardiovascular: Regular rate/rhythm, Normal S1 S2 Gastrointestinal: Normal bowel sounds, No tenderness Musculoskeletal: No tenderness Integumentary: No rashes Neurological: Normal gait, Normal speech, Normal tone, Normal affect Lymphatics: No axilla or inguinal lymphadenopathy Laboratory Data (last 24 hrs) 09/08/24 09/08/24 21:56 21:56 WBC 9.90 Hgb 15.3 Hct 45.4 Plt Count 189 Sodium 141 Potassium 3.9 BUN 26 H Creatinine 1.53 H Glucose 227 H - Problems (1) Chest pain, rule out acute myocardial infarction Current Visit: No Status: Acute Plan: Patient EKG shows no significant ST-T wave changes, cardiac enzymes are negative x2 sets. Get one more troponin, if negative then no further cardiac work up needed. continue ASA and Brilinta (2) Hypertension Current Visit: No Status: Acute Plan: reconcile and resume patient home medications and monitor BP.
--- NOTE | 2024-09-09 16:14 | P.DS ---
Admission Date: 09/08/24 Discharge Date: 09/09/24 Disposition: ROUTINE DISCHARGE Discharge Condition: GOOD Reason for Admission: chest pain Consultations: Dr. Mathias Brief History of Present Illness: History of Present Illness: Patient is a 68-year-old male with a past medical history of diabetes mellitus, coronary disease status post CABG x 2 and PCI, GERD and peptic ulcer disease. Patient is being admitted after he presented with chest pain. He was at home sitting when he developed sudden onset of chest pressure radiating to his left upper extremity. He is also reporting left hand paresthesia. Associated symptoms include shortness of breath. During my evaluation in the ER, patient appeared visibly distressed by his chest pain. His first EKG revealed normal sinus rhythm with first degree AV block. His first troponin is negative. He follows up with Dr. Perkins who has advised him to present to the ER for further evaluation. His last cardiac workup was June 2024 when he underwent coronary angiogram and PCI of severe mid LAD stenosis with a drug-eluting stent. Hospital Course: Three sets of serial high-sensitivity troponin enzymes were negative. Mr. Forman was evaluated by Dr. Mathias. He recommends continuation of his home medications to include aspirin, Brilinta, and outpatient follow-up. Vital Signs/Physical Exam: Temp Pulse Resp BP Pulse Ox 97.6 F 85 18 151/77 H 98 09/09/24 12:00 09/09/24 12:00 09/09/24 12:00 09/09/24 12:00 09/09/24 12:00 General: Alert, In no apparent distress, Oriented x3 HEENT: Atraumatic, Normocephalic Neck: Supple Respiratory: Clear to auscultation bilaterally, Normal air movement Cardiovascular: Normal pulses, Regular rate/rhythm, Normal S1 S2 Capillary refill: <2 Seconds Gastrointestinal: Normal bowel sounds, Soft and benign Musculoskeletal: No clubbing, No swelling, No contractures Integumentary: No rashes Neurological: Normal speech, Normal tone, Normal affect Lymphatics: No axilla or inguinal lymphadenopathy External genitalia: Deferred Rectal: Deferred Laboratory Data at Discharge: WBC 9.90 thou/uL (4.3-10.9) 09/08/24 21:56 Hgb 15.3 g/dL (13.6-17.9) 09/08/24 21:56 Hct 45.4 % (39.6-49.0) 09/08/24 21:56 Plt Count 189 thou/uL (152-406) 09/08/24 21:56 Sodium Cancelled 09/09/24 05:41 Potassium Cancelled 09/09/24 05:41 BUN Cancelled 09/09/24 05:41 Creatinine Cancelled 09/09/24 05:41 Glucose Cancelled 09/09/24 05:41 Phosphorus 3.7 mg/dL (2.5-4.9) 09/09/24 05:15 Magnesium 2.2 mg/dL (1.6-2.4) 09/09/24 05:15 Triglycerides 161 mg/dL (<150) H 09/09/24 05:15 Cholesterol 96 mg/dL (<200) 09/09/24 05:15 HDL Cholesterol 35 mg/dL (40-60) L 09/09/24 05:15 Cholesterol/HDL Ratio 2.74 09/09/24 05:15 Home Medications: Aspirin [Aspirin EC 81 MG] 1 tab PO DAILY 12/27/19 Finasteride 5 mg PO DAILY 12/27/19 Atorvastatin Calcium [Lipitor] 40 mg PO BEDTIME 08/12/20 Metoprolol Tartrate 37.5 mg PO DAILY 08/12/20 Mirabegron [Myrbetriq] 50 mg PO DAILY 07/25/21 Multivitamin 1 each PO BEDTIME 07/25/21 Omeprazole/Sodium Bicarbonate [Zegerid 20 mg Capsule] 1 each PO BEDTIME 07/25/21 Pregabalin [Lyrica*] 1 cap PO TID 06/10/24 Ropinirole HCl [Requip] 1 tab PO BEDTIME 06/10/24 Isosorbide Mononitrate [Isosorbide Mononitrate ER] 60 mg PO DAILY #60 tab 06/14/24 Ticagrelor [Brilinta*] 90 mg PO BID #60 tab 06/14/24 Baclofen 20 mg PO BID 09/09/24 Ferrous Gluconate 1 tab PO DAILY 09/09/24 Diet: AHA Activity: Ad sydnie Followup: Toribio Dowling DO, DO [Primary Care Provider] -
[2024-09-09 16:54] VITALS: BP 169/88; TEMP 97.7
== END 2024-09-09 19:03 | disposition home or self-care (01) ==
LOC: ER 21:31 → ERHOLD 23:24 → 2ND 09-09 11:27
PROVIDERS: ADMIT Internal Medicine; ATTEND Internal Medicine
DX: R07.9 Chest pain, unspecified (principal); I25.10 Atherosclerotic heart disease of native coronary artery without angina pectoris; I10 Essential (primary) hypertension; I25.2 Old myocardial infarction; E11.9 Type 2 diabetes mellitus without complications; K21.9 Gastro-esophageal reflux disease without esophagitis; E66.9 Obesity, unspecified; R20.2 Paresthesia of skin; R06.02 Shortness of breath; Z88.0 Allergy status to penicillin; Z88.8 Allergy status to other drugs, medicaments and biological substances; Z95.1 Presence of aortocoronary bypass graft; Z68.38 Body mass index [BMI] 38.0-38.9, adult; Z79.82 Long term (current) use of aspirin; Z88.5 Allergy status to narcotic agent
CPT/HCPCS: 93306; 85025; 80048 ×2; 36415; 83735; 84100; 80061; 82947 ×3; 83036; 84484 ×3; 71045; 99285; J1644 ×2; J2405; 93005; G0378

== ENCOUNTER 2024-10-11 14:00 | Day surgery (SDC) | payer BC, OTHER ==
[2024-10-07 15:13] LABS: Absolute Eosinophils 0.1 K/uL (0-0.5); Absolute Lymphocytes (CBC) 1.4 K/uL (0.7-4.9); Absolute Monocytes 0.8 K/uL (0.1-1.3); Absolute Neutrophil 6.1 K/uL (1.8-8.0); Basophils % 0.4 % (0-1.3); Eosinophils % 1.2 % (0-4.4); Hematocrit 49.6 % (39.6-49.0); Hemoglobin 16.1 g/dL (13.6-17.9); Lymphocytes % 16.5 % (15.3-44.8); MCH 28.5 pg (27.0-35.0); MCHC 32.5 g/dL (32.0-36.0); MCV 87.5 fL (80-100); Monocytes % 9.8 % (3.3-12.3); Neutrophils % 72.1 % (41.7-73.7); Nucleated Red Blood Cells % 0.1 % (0-0); Platelets 155 thou/uL (152-406); RBC Red Blood Cell Count 5.66 M/uL (4.33-5.43); Red Cell Distribution Width 17.8 % (12.1-15.2)
[2024-10-07 15:20] LABS: PT Prothrombin Time 12.9 SECONDS (10.0-13.0); PTT, Activated Partial Thromb 33.7 SECONDS (24.3-36.9); Protime INR 1.14
[2024-10-07 15:26] LABS: Anion Gap 9.1 mEq/L (5.0-15.0); Potassium 4.1 mEq/L (3.5-5.1)
--- NOTE | 2024-10-10 12:11 | EKG ---
Test Date: 2024-10-07 Test Time: 15:56:51 Stroke Coordinator: LOLIS MEASUREMENT RESULTS: Intervals: Rate: 79 AK: 232 QRSD: 92 QT: 376 QTc: 431 [place]: P: 44 AK: 232 QRS: 74 T: 38 INTERPRETIVE STATEMENTS: Sinus rhythm with 1st degree AV block with occasional premature ventricular complexes Anteroseptal infarct, age undetermined Abnormal ECG Compared to ECG 09/08/2024 21:39:08 Ventricular premature complex(es) now present Myocardial infarct finding still present Electronically Signed On 10-10-24 12:05:40 TRAFFIC TECHNICIAN by Otoniel Mathias
[2024-10-11] MEDS ORDERED: NA CHLORIDE 0.9% 500 ML ONE ×2 (14:13→18:36)
[2024-10-11] MEDS ORDERED: HEPA 1000U/500MLS 2,000 UNIT/1,000 ML BAG IV ONE (16:59)
[2024-10-11] MEDS ORDERED: HEPARIN 10,000 UNIT/10 ML VIAL IV ONE (16:59)
[2024-10-11] MEDS ORDERED: FENTANYL CITR 100 MCG/2 ML ONE (17:07)
[2024-10-11] MEDS ORDERED: LIDOCAINE 1% 20 ML MDV ONE (17:07)
[2024-10-11] MEDS ORDERED: CLOPIDOGREL 75 MG TABLET ONE (17:07)
[2024-10-11] MEDS ORDERED: ATROPINE SULF 1 MG/10 ML SYR IV ONE (17:07)
[2024-10-11] MEDS ORDERED: TICAGRELOR 90 MG TABLET PO ONE (17:07)
[2024-10-11] MEDS ORDERED: MIDAZOLAM HCL 2 MG/2 ML INJ ONE (17:07)
[2024-10-11] MEDS ORDERED: ASPIRIN 325 MG TAB ONE (17:07)
[2024-10-11] MEDS ORDERED: FLUMAZENIL 0.1 MG/ML (5 mL VIAL) IV ONE (17:08)
[2024-10-11] MEDS ORDERED: NALOXONE 0.4 MG/ML VIAL ONE (17:08)
[2024-10-11] MEDS ORDERED: VERAPAMIL HCL 10 MG/4 ML VIAL IV ONE (17:11)
[2024-10-11] MEDS ORDERED: HEPARIN 5000 UNIT/ML 1 ML VIAL ONE (17:11)
--- NOTE | 2024-10-11 21:35 | OP ---
Date of Procedure: 10/11/2024 Surgeon: JANE HELTON Procedures Performed: 1. Selective coronary angiogram. 2. Left heart catheterization. 3. Balloon angioplasty of severe mid LAD in-stent restenosis, probably 70%, status post balloon angio plasty using 3.5 x 12 mm NC balloon. 4. Failed PCI of severe ostial OM1 branch stenosis due to the takeoff angle plus the vessel is very s mall, however, could not deliver any balloons through it. Indication: Chest pain with positive stress test. Access: Right radial artery 6-Icelandic closed with TR band. Complications: None. Bleeding: Less than 50 mL. Anesthesia: Total sedation time was 1 hour and 15 minutes, used fentanyl and Versed. Description Of Procedure: After risks, benefits, and alternatives were explained, patient agreed to procedure and signed informed consent. The patient was brought into cardiac catheterization laborato ry, prepped and draped in sterile fashion. Then, I accessed the right radial artery using pediatric micropuncture kit, ultrasound guidance, fluoroscopy, placed 6-Icelandic slender sheath and took a 5-Fren The [employer] [place] 4.0 catheter into the aortic root, engaged left main and then right coronary artery, took st andard views and the catheter was pushed over the wire into the LV, measured the LVEDP. Pullback did not record any gradient, then exchanged for 6-Icelandic EBU3.5 guide, engaged the left main, gave syste addie heparin to assure ACT level above 250 throughout the procedure, took Runthrough wire into left ci rcumflex, crossed into the OM, however, no balloons would go through. Stenosis is very significant, heavily calcified. It is very small artery. It is less than 1.5 mm. So the wire was removed. Anais ogram was satisfactory. Then, I took the Runthrough wire into the LAD crossing the in-stent restenos es in the mid segment and then used 3.5 x 12 mm NC balloon. I did the balloon angioplasty of the in- stent restenosis of the LAD. Excellent results, at the end, and then wire was removed. Final angiog pamela was satisfactory. Then, I removed the guide and the sheath and placed TR band with good hemostas is. Findings: 1. Left main is normal. 2. LAD; widely patent proximal LAD stent. In the mid segment of the stent, there is in-stent resteno sis, it is about 70%, and the rest of the stent appears to be okay. Rest of the LAD is without signi ficant disease. 3. Status post balloon angioplasty of severe mid in-stent restenosis, as above. 4. Left circumflex; proximal to mid left circumflex stent is patent and the OM1 branch has 99% stenos is ostially, status post failed PCI, but the wire going through it up in the artery a little better, still has good flow and the vessel is less than 1.5 mm, so will be left for medical management. 5. RCA; there is a long diffuse mid RCA 60% stenosis, slightly worse compared to last time, and the P DA has 30% stenosis. 6. LVEDP is normal at 5 mmHg. Conclusion: 1. Severe in-stent restenosis of the mid LAD stent, status post successful angioplasty. 2. Severe OM1 branch disease, failed PCI. 3. Moderate RCA stenosis. We will plan for medical management and surveillance stress test periodica lly. Plan: Continue Brilinta for a full year from today. Aspirin and high-dose statin. See me in the of fice in 1 week. SR/MODL Voice ID: [id number] Report ID: [id number]
[2024-10-11 21:59] VITALS: BP 148/96; O2SAT 96
== END 2024-10-11 22:16 | disposition home or self-care (01) ==
LOC: CCL 14:00
PROVIDERS: ATTEND Internal Medicine
DX: I25.10 Atherosclerotic heart disease of native coronary artery without angina pectoris (principal); T82.855A Stenosis of coronary artery stent, initial encounter; I67.9 Cerebrovascular disease, unspecified; I10 Essential (primary) hypertension; E11.9 Type 2 diabetes mellitus without complications; N40.0 Benign prostatic hyperplasia without lower urinary tract symptoms; E66.01 Morbid (severe) obesity due to excess calories; Z95.5 Presence of coronary angioplasty implant and graft; Z87.891 Personal history of nicotine dependence; Z79.82 Long term (current) use of aspirin; Z79.899 Other long term (current) drug therapy; Z88.0 Allergy status to penicillin; Z88.8 Allergy status to other drugs, medicaments and biological substances; Z82.49 Family history of ischemic heart disease and other diseases of the circulatory system
CPT/HCPCS: 36415; 76937; 80048; 85025; 85347; 85610; 85730; 92920; 92921; 93005; 93458; 93459; 99152; C1725; C1893; J0461; J1644; J2003; J2250; J2310; J3010; J7040; Q9967

== ENCOUNTER 2024-11-20 03:10 | Observation (INO) | payer BC, OTHER ==
[2024-11-20 03:31] LABS: Absolute Eosinophils 0.2 K/uL (0-0.5); Absolute Lymphocytes (CBC) 1.6 K/uL (0.7-4.9); Absolute Monocytes 0.8 K/uL (0.1-1.3); Absolute Neutrophil 4.9 K/uL (1.8-8.0); Basophils % 0.5 % (0-1.3); Eosinophils % 2.2 % (0-4.4); Hemoglobin 16.9 g/dL (13.6-17.9); Lymphocytes % 20.9 % (15.3-44.8); MCHC 33.8 g/dL (32.0-36.0); MCV 88.7 fL (80-100); Monocytes % 10.9 % (3.3-12.3); Neutrophils % 65.5 % (41.7-73.7); Nucleated Red Blood Cells % 0.1 % (0-0); Platelets 130 thou/uL (152-406); RBC Red Blood Cell Count 5.64 M/uL (4.33-5.43)
[2024-11-20 03:34] LABS: PT Prothrombin Time 12.5 SECONDS (10-13.0); Protime INR 1.1
[2024-11-20 03:48] LABS: Albumin/Globulin Ratio 0.9 (1.1-1.8); Anion Gap 10.6 mEq/L (5.0-15.0); Bilirubin Direct 0.2 mg/dL (0-0.2); Bilirubin Indirect, Calculated 0.3 mg/dL (0.2-0.8); Bilirubin Total 0.5 mg/dL (0.2-1.0); Globulin 3.3 g/dL (2.3-3.5); Magnesium 1.9 mg/dL (1.6-2.4); Potassium 3.6 mEq/L (3.5-5.1); Protein, Total 6.3 g/dL (6.4-8.2); Troponin High Sensitivity 12.7 pg/mL (<58.9)
[2024-11-20] MEDS ORDERED: NITROGLYCERIN 0.4 MG/TAB SL ONE (03:50)
--- NOTE | 2024-11-20 03:52 | ER ---
Nurse's Notes [facility] Name: Kumar Forman Age: 68 yrs Sex: Male : 1955 Arrival Date: 11/20/2024 Time: 03:10 Bed 6 Private MD: Diagnosis: Chest pain Presentation: 11/20 03:12 Chief complaint: EMS states: chest pain that started around 0030. Coronavirus screen: cp4 Client denies travel out of the [place] in the last 14 days. At this time, the client does not indicate any symptoms associated with coronavirus-19. Ebola Screen: Patient negative for fever greater than or equal to 101.5 degrees Fahrenheit, and additional compatible Ebola Virus Disease symptoms Patient denies exposure to infectious person. Patient denies travel to an Ebola-affected area in the 21 days before illness onset. No symptoms or risks identified at this time. Initial Sepsis Screen: Does the patient meet any 2 criteria? No. Patient's initial sepsis screen is negative. Does the patient have a suspected source of infection? No. Patient's initial sepsis screen is negative. Risk Assessment: Do you want to hurt yourself or someone else? Patient reports no desire to harm self or others. Onset of symptoms was November 20, 2024 at 00:30. 03:12 Method Of Arrival: EMS: [facility] cp4 03:12 Acuity: STEF 3 cp4 03:12 Care prior to arrival: Medication(s) given: ASA, 81 mg, x 3, Nitroglycerin, 0.4 mg SL cp4 Tylenol, 1000 mg. Triage Assessment: 03:17 General: Appears in no apparent distress. uncomfortable, Behavior is calm, cooperative, cp4 appropriate for age. Pain: Complains of pain in chest Pain does not radiate. Pain currently is 6 out of 10 on a pain scale. EENT: No signs and/or symptoms were reported regarding the EENT system. Neuro: Level of Consciousness is awake, alert, obeys commands, Oriented to person, place, time, situation. Cardiovascular: Reports chest pain, Patient's skin is warm and dry. Rhythm is sinus rhythm. Respiratory: Airway is patent Respiratory effort is even, unlabored. GI: No signs and/or symptoms were reported involving the gastrointestinal system. : No signs and/or symptoms were reported regarding the genitourinary system. Derm: No signs and/or symptoms reported regarding the dermatologic system. Musculoskeletal: No signs and/or symptoms reported regarding the musculoskeletal system. Historical: - Allergies: 03:17 AZO Standard; cp4 03:17 Iodine; cp4 03:17 Demerol; cp4 03:17 PENICILLINS; cp4 - PMHx: 03:17 BPH; Cataracts; Diabetes - NIDDM; GERD; Myocardial infarction; Ulcers; cp4 - PSHx: 03:17 bilateral knee surgery; Stented artery; cp4 - Immunization history:: Adult Immunizations up to date. - Infectious Disease History:: Denies. - Social history:: Smoking status: Patient denies any tobacco usage or history of. Screenin:19 [facility] ED Fall Risk Assessment (Adult) History of falling in the last 3 months, cp4 including since admission No falls in past 3 months (0 pts) Confusion or Disorientation No (0 pts) Intoxicated or Sedated No (0 pts) Impaired Gait No (0 pts) Mobility Assist Device Used No (0 pt) Altered Elimination No (0 pt) Score/Fall Risk Level 0 - 2 = Low Risk Oriented to surroundings, Maintained a safe environment, Assessed \T\ reinforced patient's understanding of fall precautions, Hourly rounding (assess needs \T\ fall precautionary measures) done. Abuse screen: Denies threats or abuse. Denies injuries from another. Nutritional screening: No deficits noted. Tuberculosis screening: No symptoms or risk factors identified. Assessment: 03:19 Pain: Pain began 3 hours ago. cp4 Vital Signs: 03:12 BP 181 / 89; Pulse 77; Resp 18; Temp 98.4; Pulse Ox 99% ; Weight 113.4 kg; Height 5 ft. cp4 7 in. ; Pain 6/10; 04:30 BP 173 / 76; Pulse 68; Resp 18; Pulse Ox 98% ; cp4 05:06 BP 155 / 84; Pulse 66; Resp 18; Pulse Ox 98% ; cp4 06:54 BP 165 / 80; Pulse 79; Resp 18; Pulse Ox 98% ; cp4 03:12 Body Mass Index 39.16 (113.40 kg, 170.18 cm) cp4 03:12 Pain Scale: Adult cp4 ED Course: 03:11 Patient arrived in ED. cp4 03:12 Melva Holman is Primary Nurse. cp4 03:16 Dawna Escobar MD is Attending Physician. sp3 03:17 Triage completed. cp4 03:17 Arm band placed on right wrist. Patient placed in an exam room, on a stretcher. cp4 03:19 Bed in low position. Call light in reach. Side rails up X2. Client placed on continuous cp4 cardiac and pulse oximetry monitoring. NIBP monitoring applied. hall monitor on. Pulse ox on. NIBP on. 03:19 No provider procedures requiring assistance completed. Maintain EMS IV. Dressing cp4 intact. Good blood return noted. Site clean \T\ dry. Gauge \T\ site: 20G LAC. Flushed with 10 mL NS. Patient maintains SpO2 saturation greater than 95% on room air. 03:25 Initial lab(s) drawn, by me, sent to lab. EKG done, by ED staff, reviewed by Dawna Escobar MD. 03:43 XRAY Chest (1 view) In Process Unspecified. EDMS 03:52 Lucy Marr MD is Hospitalizing Provider. sp3 06:28 Provided Education on: admission. cp4 06:28 Patient admitted, IV remains in place. cp4 Administered Medications: 03:52 Drug: Nitroglycerin Sublingual 0.4 mg Sublingual once; every five minute if needed x3 jj7 Route: Sublingual; 05:06 Follow up: Response: No adverse reaction cp4 Medication: 03:19 VIS not applicable for this client. cp4 Outcome: 03:52 Decision to Hospitalize by Provider. sp3 07:33 Patient left the ED. aa5 Signatures: Dispatcher [employer] EDKY Crystal Flores, RN RN aa5 Dawna Escobar MD MD sp3 Daphney Keith RN RN jj7 Melva Holman cp4
--- NOTE | 2024-11-20 03:53 | EDPHYS ---
Physician Documentation [facility] Name: Kumar Forman Age: 68 yrs Sex: Male : 1955 Arrival Date: 11/20/2024 Time: 03:10 Bed 6 Private MD: ED Physician Dawna Escobar HPI: 11/20 03:47 This 68 yrs old Male presents to ER via EMS with complaints of Chest Pain. sp3 03:47 68-year-old male with extensive cardiac history including multiple stents, diabetes, sp3 AR, gastric ulcers now presents to the ED with chief complaint chest pain. Blood pressure elevated and patient has received nitroglycerin for both blood pressure and chest pain by EMS. He denies any other symptoms including fever, URI symptoms, cough, headache, neck pain, shortness of breath, abdominal pain, vomit, diarrhea, syncope, or any other signs or symptoms on ROS at this time.. Historical: - Allergies: 03:17 AZO Standard; cp4 03:17 Iodine; cp4 03:17 Demerol; cp4 03:17 PENICILLINS; cp4 - PMHx: 03:17 BPH; Cataracts; Diabetes - NIDDM; GERD; Myocardial infarction; Ulcers; cp4 - PSHx: 03:17 bilateral knee surgery; Stented artery; cp4 - Immunization history:: Adult Immunizations up to date. - Infectious Disease History:: Denies. - Social history:: Smoking status: Patient denies any tobacco usage or history of. ROS: 03:48 Constitutional: Negative for fever, chills, and weight loss, Eyes: Negative for injury, sp3 pain, redness, and discharge, ENT: Negative for injury, pain, and discharge, Neck: Negative for injury, pain, and swelling, Respiratory: Negative for shortness of breath, cough, wheezing, and pleuritic chest pain, Abdomen/GI: Negative for abdominal pain, nausea, vomiting, diarrhea, and constipation, Back: Negative for injury and pain, MS/Extremity: Negative for injury and deformity, Skin: Negative for injury, rash, and discoloration, Neuro: Negative for headache, weakness, numbness, tingling, and seizure, Psych: Negative for depression, anxiety, suicide ideation, homicidal ideation, and hallucinations, Allergy/Immunology: Negative for hives, rash, and allergies, Endocrine: Negative for neck swelling, polydipsia, polyuria, polyphagia, and marked weight changes, 03:48 All other systems are negative, Exam: 03:48 Constitutional: This is a well developed, well nourished patient who is awake, alert, sp3 and in no acute distress. Head/Face: Normocephalic, atraumatic. Eyes: Pupils equal round and reactive to light, extra-ocular motions intact. Lids and lashes normal. Conjunctiva and sclera are non-icteric and not injected. Cornea within normal limits. Periorbital areas with no swelling, redness, or edema. Neck: Trachea midline, no thyromegaly or masses palpated, and no cervical lymphadenopathy. Supple, full range of motion without nuchal rigidity, or vertebral point tenderness. No Meningismus. Chest/axilla: Normal chest wall appearance and motion. Nontender with no deformity. No lesions are appreciated. Cardiovascular: Regular rate and rhythm with a normal S1 and S2. No gallops, murmurs, or rubs. Normal PMI, no JVD. No pulse deficits. Respiratory: Lungs have equal breath sounds bilaterally, clear to auscultation and percussion. No rales, rhonchi or wheezes noted. No increased work of breathing, no retractions or nasal flaring. Abdomen/GI: Soft, non-tender, with normal bowel sounds. No distension or tympany. No guarding or rebound. No evidence of tenderness throughout. Back: No spinal tenderness. No costovertebral tenderness. Full range of motion. Skin: Warm, dry with normal turgor. Normal color with no rashes, no lesions, and no evidence of cellulitis. MS/ Extremity: Pulses equal, no cyanosis. Neurovascular intact. Full, normal range of motion. Neuro: Awake and alert, GCS 15, oriented to person, place, time, and situation. Cranial nerves II-XII grossly intact. Motor strength 5/5 in all extremities. Sensory grossly intact. Cerebellar exam normal. Normal gait. Psych: Awake, alert, with orientation to person, place and time. Behavior, mood, and affect are within normal limits. 03:48 ECG was reviewed by the Attending Physician. EKG demonstrates normal sinus rhythm at 81 bpm with first-degree AV block with [place] interval 212, QTc at 471, normal axis, poor R wave progression in precordial leads and nonspecific diffuse ST/T changes without evidence of acute ischemia. Vital Signs: 03:12 BP 181 / 89; Pulse 77; Resp 18; Temp 98.4; Pulse Ox 99% ; Weight 113.4 kg; Height 5 ft. cp4 7 in. ; Pain 6/10; 04:30 BP 173 / 76; Pulse 68; Resp 18; Pulse Ox 98% ; cp4 05:06 BP 155 / 84; Pulse 66; Resp 18; Pulse Ox 98% ; cp4 06:54 BP 165 / 80; Pulse 79; Resp 18; Pulse Ox 98% ; cp4 03:12 Body Mass Index 39.16 (113.40 kg, 170.18 cm) cp4 03:12 Pain Scale: Adult cp4 MDM: 03:17 Medical Screening Exam initiated sp3 03:49 Data reviewed: vital signs, nurses notes, EMS record, old medical records, lab test sp3 result(s), EKG, radiologic studies. ED course: Very high risk patient with chest pain. If troponin negative we will still admit for 23-hour observation and consultation by Dr. Perkins his insole beveler.. 11/20 03:17 Order name: Basic Metabolic Panel; Complete Time: 03:49 sp3 11/20 03:17 Order name: CBC with Diff; Complete Time: 03:44 sp3 11/20 03:17 Order name: LFT's; Complete Time: 03:49 sp3 11/20 03:17 Order name: Magnesium; Complete Time: 03:49 sp3 11/20 03:17 Order name: NT PRO-BNP; Complete Time: 03:49 sp3 11/20 03:17 Order name: PT-INR; Complete Time: 03:44 sp3 11/20 03:17 Order name: Troponin HS; Complete Time: 03:49 sp3 11/20 04:24 Order name: Basic Metabolic Panel EDMS 11/20 04:24 Order name: CBC with Automated Diff EDMS 11/20 04:24 Order name: Lipid Profile EDMS 11/20 04:24 Order name: Lipid Profile EDMS 11/20 04:24 Order name: Troponin High Sensitivity EDMS 11/20 04:24 Order name: Troponin High Sensitivity EDMS 11/20 04:24 Order name: Troponin High Sensitivity EDMS 11/20 04:24 Order name: Troponin High Sensitivity EDMS 11/20 04:24 Order name: Troponin High Sensitivity EDMS 11/20 03:17 Order name: XRAY Chest (1 view) sp3 11/20 04:24 Order name: Echo with Doppler EDMS 11/20 03:17 Order name: Cardiac monitoring; Complete Time: 03:20 sp3 11/20 03:17 Order name: EKG - Nurse/Tech; Complete Time: 03:20 sp3 11/20 03:17 Order name: IV Saline Lock; Complete Time: 03:20 sp3 11/20 03:17 Order name: Labs collected and sent; Complete Time: 03:20 sp3 11/20 03:17 Order name: O2 Per Protocol; Complete Time: 03:20 sp3 11/20 03:17 Order name: O2 Sat Monitoring; Complete Time: 03:20 sp3 Administered Medications: 03:52 Drug: Nitroglycerin Sublingual 0.4 mg Sublingual once; every five minute if needed x3 jj7 Route: Sublingual; 05:06 Follow up: Response: No adverse reaction cp4 Disposition Summary: 11/20/24 03:52 Hospitalization Ordered Notes: Hospitalization Status: Observation sp3 Provider: Lucy Marr sp3 Location: Telemetry/MedSurg (observation) sp3 Condition: Stable sp3 Problem: an acute exacerbation sp3 Symptoms: have worsened sp3 Bed/Room Type: Standard sp3 Room Assignment: [facility](11/20/24 06:51) Diagnosis - Chest pain sp3 Forms: - Medication Reconciliation Form sp3 - SBAR form sp3 - Leadership Thank You Letter sp3 Signatures: Dispatcher [employer] EDWV Marga Canseco Dawna Escobar MD MD sp3 Daphney Keith RN RN jj7 Melva Holman cp4 Corrections: (The following items were deleted from the chart) 03:18 03:17 BASIC METABOLIC PANEL+C.LAB.BRZ ordered. EDMS EDMS 03:18 03:17 CBC+H.LAB.BRZ ordered. EDMS EDMS 03:18 03:17 HEPATIC FUNCTION+C.LAB.BRZ ordered. EDMS EDMS 03:18 03:17 MAGNESIUM+C.LAB.BRZ ordered. EDMS EDMS 03:18 03:17 PROBNP+C.LAB.BRZ ordered. EDMS EDMS 03:18 03:17 PROTIME (+INR)+COAG.LAB.BRZ ordered. EDMS EDMS 03:18 03:17 Troponin High Sensitivity+C.LAB.BRZ ordered. EDMS EDMS 03:18 03:18 Chest Single View+RAD.RAD.BRZ ordered. EDMS EDMS 06:51 03:52 sp3 eb
[2024-11-20] MEDS ORDERED: NITROGLYCERIN 0.4 MG/TAB SL PRN (04:18)
[2024-11-20] MEDS ORDERED: MORPHINE 4 MG/ML SYR IV PRN (04:18)
[2024-11-20] MEDS ORDERED: ALPRAZOLAM 0.25 MG TABLET PO PRN (04:18)
--- NOTE | 2024-11-20 04:27 | P.HP ---
Patient History Date of Service: 11/20/24 Reason for admission: Chest pain History of Present Illness: 68-year-old male with a past medical history of diabetes, history of IA, CAD (CABG x 2) and PCI, GERD, presenting with chest pain. He states this began earlier today. He characterizes the pain as stabbing. He rates it as a 9/10. Associated symptoms include shortness of breath. He called EMS and was given nitroglycerin. He denies any fevers, chills, diarrhea, URI symptoms. He states his blood sugar has been under control. Allergies iodine Allergy (Severe, Verified 10/07/24 14:42) Redness, Swelling Penicillins Allergy (Severe, Verified 10/07/24 14:42) Anaphylaxis phenazopyridine Allergy (Severe, Verified 10/07/24 14:42) Anaphylaxis Home Medications: Aspirin [Aspirin EC 81 MG] 1 tab PO DAILY 12/27/19 Finasteride 5 mg PO DAILY 12/27/19 Atorvastatin Calcium [Lipitor] 40 mg PO BEDTIME 08/12/20 Metoprolol Tartrate 37.5 mg PO DAILY 08/12/20 Mirabegron [Myrbetriq] 50 mg PO DAILY 07/25/21 Multivitamin 1 each PO BEDTIME 07/25/21 Omeprazole/Sodium Bicarbonate [Zegerid 20 mg Capsule] 1 each PO BEDTIME 07/25/21 Pregabalin [Lyrica*] 1 cap PO TID 06/10/24 Ropinirole HCl [Requip] 1 tab PO BEDTIME 06/10/24 Isosorbide Mononitrate [Isosorbide Mononitrate ER] 60 mg PO DAILY #60 tab 06/14/24 Ticagrelor [Brilinta*] 90 mg PO BID #60 tab 06/14/24 Baclofen 20 mg PO BID 09/09/24 Ferrous Gluconate 1 tab PO DAILY 09/09/24 - Past Medical/Surgical History Diabetic: No -: HTN -: Hyperlipidemia -: BPH -: GERD -: IA -: NIDDM -: Heart stent, 2004 -: Heart stent, 2005 -: Cataract Surgery (Right eye) -: Total Left Knee Replacement -: Cholecystectomy -: CABG x2 (OM, LAD) 2019 - Family History Mother -: Heart disease, Hypertension Notes: RA, dementia Father -: Cancer Notes: Hodgkin's - Social History Alcohol use: Yes CD- Drugs: No Caffeine use: No Review of Systems General: Unremarkable Eyes: Unremarkable ENT: Unremarkable Respiratory: Shortness of Breath Cardiovascular: Chest Pain Gastrointestinal: Unremarkable Genitourinary: Unremarkable Integumentary: Unremarkable Neurological: Unremarkable Lymphatics: Unremarkable Physical Examination - Physical Exam General: Alert, In no apparent distress, Obese HEENT: Atraumatic, Normocephalic Neck: Supple Respiratory: Clear to auscultation bilaterally Cardiovascular: No edema Capillary refill: <2 Seconds Gastrointestinal: Normal bowel sounds Musculoskeletal: No clubbing, No swelling Integumentary: No rashes, No breakdown Neurological: Normal gait Lymphatics: No axilla or inguinal lymphadenopathy - Studies Laboratory Data (last 24 hrs) 11/20/24 11/20/24 11/20/24 03:20 03:20 03:20 WBC 7.50 Hgb 16.9 Hct 50.0 H Plt Count 130 L PT 12.5 INR 1.10 Sodium 142 Potassium 3.6 BUN 16 Creatinine 1.00 Glucose 168 H Magnesium 1.9 Total Bilirubin 0.5 AST 25 ALT 31 Alkaline Phosphatase 61 Assessment and Plan - Plan Chest pain CAD Type 2 diabetes mellitus GERD History of IA Gastric ulcers Restless leg syndrome Admit to floor Trend troponin, consult cardiology, continue aspirin, statin, Brilinta Sliding scale insulin Obtain echo Lipid panel pending Continue metoprolol, Imdur Continue Lyrica Continue ropinirole DVT prophylaxis with Lovenox - Advance Directives Does patient have a Living Will: No Does patient have a Durable POA for Healthcare: No
[2024-11-20] MEDS ORDERED: D10W 125 ML IV PRN (05:25)
[2024-11-20] MEDS ORDERED: GLUCAGON 1 MG/VIAL IM PRN (05:25)
[2024-11-20 05:56] VITALS: BMI 39.1
--- NOTE | 2024-11-20 06:07 | RAD REPORT ---
XR CHEST 1 VIEW CLINICAL INDICATION: Chest pain COMPARISON: No prior images available for comparison at time of interpretation. FINDINGS: SUPPORT DEVICES: None LUNGS/PLEURAL SPACES: Central pulmonary vascular congestion. No focal opacity. No pleural effusion. N o pneumothorax. HEART/MEDIASTINUM: Heart is enlarged. BONES/UPPER ABDOMEN/SOFT TISSUES: No acute findings. IMPRESSION: Cardiomegaly and central pulmonary vascular congestion. Electronically signed by: Aileen Le MD 11/20/2024 06:04 AM CDT Due to temporary technical issues with the PACS/Quv[employer] reporting system, reports are being aida d by the in-house radiologist without review as a courtesy to ensure prompt reporting the interpreting radiologist is fully responsible for the content of the report. Transcribed Date/Time: 11/20/2024 6:07 AM
[2024-11-20] MEDS: INSULIN REGULAR (HUMAN) 100 UNIT/ML SQ SCH (07:30)
[2024-11-20 07:39] VITALS: O2SAT 98
[2024-11-20 08:21] LABS: Absolute Eosinophils 0.1 K/uL (0-0.5); Absolute Lymphocytes (CBC) 1.3 K/uL (0.7-4.9); Absolute Monocytes 0.8 K/uL (0.1-1.3); Absolute Neutrophil 5.1 K/uL (1.8-8.0); Basophils % 0.7 % (0-1.3); Eosinophils % 1.9 % (0-4.4); Hematocrit 51.5 % (39.6-49.0); Hemoglobin 17.3 g/dL (13.6-17.9); Lymphocytes % 17.9 % (15.3-44.8); MCH 29.9 pg (27.0-35.0); MCHC 33.5 g/dL (32.0-36.0); MCV 89.2 fL (80-100); Monocytes % 11.3 % (3.3-12.3); Neutrophils % 68.2 % (41.7-73.7); Nucleated Red Blood Cells % 0.1 % (0-0); Platelets 133 thou/uL (152-406); RBC Red Blood Cell Count 5.78 M/uL (4.33-5.43); Red Cell Distribution Width 17.9 % (12.1-15.2)
[2024-11-20 08:35] LABS: Anion Gap 7.7 mEq/L (5.0-15.0); Potassium 3.7 mEq/L (3.5-5.1)
[2024-11-20] MEDS: ASPIRIN EC 81 MG TAB PO SCH (08:41)
[2024-11-20] MEDS: METOPROLOL TAR 25 MG TAB PO SCH (08:41)
[2024-11-20] MEDS: ENOXAPARIN 40 MG/0.4 ML SQ SCH (08:41)
[2024-11-20] MEDS: TICAGRELOR 90 MG TABLET PO SCH (08:41)
[2024-11-20] MEDS: PREGABALIN 75 MG CAP PO SCH (08:41)
[2024-11-20] MEDS: ISOSORBIDE MONO SR 60 MG TAB PO SCH (08:41)
[2024-11-20] MEDS ORDERED: ASPIRIN EC 81 MG TAB PO SCH (09:00)
--- NOTE | 2024-11-20 10:33 | P.PN ---
Subjective Date of Service: 11/20/24 Chief Complaint: Chest pain Subjective: No new changes No complaints. Lying in bed, comfortable Review of Systems 10-point ROS is otherwise unremarkable Physical Examination - Vital Signs Temperature: 97.5 F Blood Pressure: 180/91 Pulse: 82 Respirations: 20 Pulse Ox (%): 95 - Physical Exam General: Oriented x3 HEENT: Atraumatic Neck: Supple Respiratory: Diminished Cardiovascular: Regular rate/rhythm Gastrointestinal: Normal bowel sounds Neurological: Normal gait - Studies Laboratory Data (last 24 hrs) 11/20/24 11/20/24 11/20/24 03:20 03:20 03:20 WBC 7.50 Hgb 16.9 Hct 50.0 H Plt Count 130 L PT 12.5 INR 1.10 Sodium 142 Potassium 3.6 BUN 16 Creatinine 1.00 Glucose 168 H Magnesium 1.9 Total Bilirubin 0.5 AST 25 ALT 31 Alkaline Phosphatase 61 Assessment And Plan - Plan 1. Chest pain - Currently resolved - EKG shows sinus rhythm in the 80s with first degree AV block - Serial troponins negative - Resume aspirin, Brilinta, statin and metoprolol - Cardiology consulted 2. History of CABG x 2, PCI with multiple stents (11 stents per patient) - Resumed aspirin, Brilinta, statin and metoprolol 3. Type 2 diabetes - Sliding scale insulin 4. Uncontrolled essential hypertension - SBP in 160s - Added losartan to optimize control 5. DVT prophylaxis - Subcu Lovenox
[2024-11-20 12:18] VITALS: TEMP 97.9
--- NOTE | 2024-11-20 12:55 | P.CNS ---
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 Allergies iodine Allergy (Severe, Verified 10/07/24 14:42) Redness, Swelling Penicillins Allergy (Severe, Verified 10/07/24 14:42) Anaphylaxis phenazopyridine Allergy (Severe, Verified 10/07/24 14:42) Anaphylaxis Home medications list reviewed: Yes Home Medications: Aspirin [Aspirin EC 81 MG] 1 tab PO DAILY 12/27/19 Atorvastatin Calcium [Lipitor] 40 mg PO BEDTIME 08/12/20 Metoprolol Tartrate 37.5 mg PO DAILY 08/12/20 Mirabegron [Myrbetriq] 50 mg PO DAILY 07/25/21 Multivitamin 1 each PO BEDTIME 07/25/21 Omeprazole/Sodium Bicarbonate [Zegerid 20 mg Capsule] 1 each PO BEDTIME 07/25/21 Pregabalin [Lyrica*] 1 cap PO TID 06/10/24 Isosorbide Mononitrate [Isosorbide Mononitrate ER] 60 mg PO DAILY #60 tab 06/14/24 Ticagrelor [Brilinta*] 90 mg PO BID #60 tab 06/14/24 Baclofen 20 mg PO BID 09/09/24 - Past Medical/Surgical History Diabetic: No -: HTN -: Hyperlipidemia -: BPH -: GERD -: [place] -: NIDDM -: Heart stent, 2004 -: Heart stent, 2005 -: Cataract Surgery (Right eye) -: Total Left Knee Replacement -: Cholecystectomy -: CABG x2 (OM, LAD) 2019 - Family History Mother Medical History: Heart disease, Hypertension Notes: RA, dementia Father Medical History: Cancer Notes: Hodgkin's - Social History Smoking Status: Unknown if ever smoked Alcohol use: Yes CD- Drugs: No Caffeine use: No Review of Systems 10-point ROS is otherwise unremarkable Physical Examination Temp Pulse Resp BP Pulse Ox 97.9 F 71 20 172/86 H 96 11/20/24 12:00 11/20/24 12:00 11/20/24 12:00 11/20/24 12:00 11/20/24 12:00 General: Alert, In no apparent distress HEENT: Atraumatic, PERRLA, Mucous membr. moist/pink, EOMI, Sclerae nonicteric Neck: Supple, 2+ carotid pulse no bruit, No LAD, Without JVD or thyroid abnormality Respiratory: Clear to auscultation bilaterally, Normal air movement Cardiovascular: Regular rate/rhythm, Normal S1 S2 Gastrointestinal: Normal bowel sounds, No tenderness Musculoskeletal: No tenderness Integumentary: No rashes Neurological: Normal gait, Normal speech, Normal tone, Normal affect Lymphatics: No axilla or inguinal lymphadenopathy Laboratory Data (last 24 hrs) 11/20/24 11/20/24 11/20/24 03:20 03:20 03:20 WBC 7.50 Hgb 16.9 Hct 50.0 H Plt Count 130 L PT 12.5 INR 1.10 Sodium 142 Potassium 3.6 BUN 16 Creatinine 1.00 Glucose 168 H Magnesium 1.9 Total Bilirubin 0.5 AST 25 ALT 31 Alkaline Phosphatase 61 - Problems (1) Chest pain, rule out acute myocardial infarction Current Visit: No Status: Acute Plan: Patient with recent PTCA of LAD ISR, he has been complaint with medications, troponin are negative so far. continue to trend for 3 sets, if negative then no further cardiac work up needed continue ASA 81 mg daily Continue Brilinta 90 mg po BID for 12 months Continue Lipitor 40 mg daily (2) Hypertension Current Visit: No Status: Acute Plan: poorly controlled change Lopressor to 25 mg po BID Losartan 50 mg daily Aldactone 25 mg daily continue Imdur 60 mg daily outpatient follow up with cardiology.
[2024-11-20] MEDS: LOSARTAN POTASSIUM 50 MG TABLET PO SCH (13:03)
--- NOTE | 2024-11-20 14:34 | P.DS ---
Admission Date: 11/20/24 Discharge Date: 11/20/24 Disposition: ROUTINE DISCHARGE Reason for Admission: Chest pain Brief History of Present Illness: 68-year-old male with a past medical history of diabetes, history of HI, CAD (CABG x 2) and PCI, GERD, presenting with chest pain. He states this began earlier today. He characterizes the pain as stabbing. He rates it as a 9/10. Associated symptoms include shortness of breath. He called EMS and was given nitroglycerin. He denies any fevers, chills, diarrhea, URI symptoms. He states his blood sugar has been under control. Hospital Course: 68-year-old male with a past medical history of diabetes, history of HI, CAD (CABG x 2) and PCI, GERD, admitted for chest pain. EKG shows sinus rhythm no acute ST or T wave changes. Serial troponins were negative x 2. Vitals also showed uncontrolled essential hypertension with SBP in the 170s. Patient was seen by mold closer helper, , who made some medication changes for blood pressure control: Added Aldactone and losartan. SBP in the 150s at time of discharge . Patient was then discharged home Vital Signs/Physical Exam: Temp Pulse Resp BP Pulse Ox 97.9 F 71 20 172/86 H 96 11/20/24 12:00 11/20/24 12:00 11/20/24 12:00 11/20/24 12:00 11/20/24 12:00 Laboratory Data at Discharge: WBC 7.50 thou/uL (4.3-10.9) 11/20/24 07:59 Hgb 17.3 g/dL (13.6-17.9) 11/20/24 07:59 Hct 51.5 % (39.6-49.0) H 11/20/24 07:59 Plt Count 133 thou/uL (152-406) L 11/20/24 07:59 PT 12.5 SECONDS (10-13.0) 11/20/24 03:20 INR 1.10 11/20/24 03:20 Sodium 139 mEq/L (136-145) 11/20/24 07:59 Potassium 3.7 mEq/L (3.5-5.1) 11/20/24 07:59 BUN 15 mg/dL (7-18) 11/20/24 07:59 Creatinine 0.90 mg/dL (0.70-1.30) 11/20/24 07:59 Glucose 155 mg/dL (74-106) H 11/20/24 07:59 Magnesium 1.9 mg/dL (1.6-2.4) 11/20/24 03:20 Total Bilirubin 0.5 mg/dL (0.2-1.0) 11/20/24 03:20 AST 25 U/L (15-37) 11/20/24 03:20 ALT 31 U/L (16-61) 11/20/24 03:20 Alkaline Phosphatase 61 U/L (45-117) 11/20/24 03:20 Home Medications: RX: Aspirin [Aspirin EC 81 MG] 1 tab PO DAILY 12/27/19 RX: Atorvastatin Calcium [Lipitor] 40 mg PO BEDTIME 08/12/20 RX: Mirabegron [Myrbetriq] 50 mg PO DAILY 07/25/21 RX: Multivitamin 1 each PO BEDTIME 07/25/21 RX: Omeprazole/Sodium Bicarbonate [Zegerid 20 mg Capsule] 1 each PO BEDTIME 07/25/21 RX: Pregabalin [Lyrica*] 1 cap PO TID 06/10/24 RX: Isosorbide Mononitrate [Isosorbide Mononitrate ER] 60 mg PO DAILY #60 tab 06/14/24 RX: Ticagrelor [Brilinta*] 90 mg PO BID #60 tab 06/14/24 RX: Baclofen 20 mg PO BID 09/09/24 RX: Losartan Potassium [Cozaar*] 50 mg PO DAILY 30 Days #30 tab 11/20/24 RX: Metoprolol Tartrate 25 mg PO BID 30 Days #60 tab 11/20/24 RX: Ropinirole HCl [Requip*] 4 mg PO BEDTIME tab 11/20/24 Spironolactone [Aldactone] 25 mg PO DAILY 30 Days #30 tab 11/20/24 New Medications: Spironolactone [Aldactone] 25 mg PO DAILY 30 Days #30 tab RX: Losartan Potassium [Cozaar*] 50 mg PO DAILY 30 Days #30 tab RX: Metoprolol Tartrate 25 mg PO BID 30 Days #60 tab Diet: ADA Activity: Ad sydnie Followup: NONE,NONE [Primary Care Provider] - Ean Perkins MD [ACTIVE - CAN ADMIT] - 1-2 Weeks
[2024-11-20 14:47] VITALS: BP 152/82
[2024-11-20] MEDS ORDERED: ATORVASTATIN 40 MG TAB PO SCH (21:00)
[2024-11-20] MEDS ORDERED: ROPINIROLE HCL 1 MG TAB PO SCH (21:00)
--- NOTE | 2024-11-21 10:51 | EKG ---
Test Date: 2024-11-20 Test Time: 03:14:09 Dairy Clerk: AF MEASUREMENT RESULTS: Intervals: Rate: 81 ID: [id number] QRSD: 90 QT: 406 QTc: 471 [place]: P: 30 ID: [id number] QRS: 46 T: 0 INTERPRETIVE STATEMENTS: Sinus rhythm with 1st degree AV block Cannot rule out Inferior infarct, age undetermined Anteroseptal infarct, age undetermined Abnormal ECG Compared to ECG 10/07/2024 15:56:51 Ventricular premature complex(es) no longer present Myocardial infarct finding still present Electronically Signed On 11-21-24 10:48:00 CDT by Otoniel Mathias
== END 2024-11-20 15:08 | disposition home health service (06) ==
LOC: ER 03:10 → INTOOBSV 04:18 → ERHOLD 04:18 → 2ND 07:07
PROVIDERS: ADMIT Family Medicine; ATTEND Internal Medicine
DX: R07.9 Chest pain, unspecified (principal); E11.9 Type 2 diabetes mellitus without complications; I25.10 Atherosclerotic heart disease of native coronary artery without angina pectoris; I25.2 Old myocardial infarction; K21.9 Gastro-esophageal reflux disease without esophagitis; Z88.0 Allergy status to penicillin; Z88.8 Allergy status to other drugs, medicaments and biological substances; G25.81 Restless legs syndrome; K25.9 Gastric ulcer, unspecified as acute or chronic, without hemorrhage or perforation; Z95.1 Presence of aortocoronary bypass graft
CPT/HCPCS: 93005; 85025 ×2; 80048 ×2; 36415; 83735; 85610; 82947 ×2; 80076; 84484 ×2; 83880; 71045; 99284; J1650; J1815; G0378 ×3